=== PATIENT | male | born 1945 | race Caucasian/White ===

== ENCOUNTER 2016-09-22 07:47 | Inpatient (IN) | payer OTHER ==
[~2016-09-22] VITALS: Ht 177.8 cm; Wt 113.7 kg
[~2016-09-22 07:47] MED LIST: CIPR-255 PO; DABI150C PO; DOCU100C PO; FRS/40 PO; LATA0.009; METF-384 PO; TIMO0.2528 OP
--- NOTE | 2016-09-22 08:16 | EMERGENCY ROOM VISIT NOTE ---
History Report prepared by Griselda: Jessi Linares Under the Supervision of: Dr. Todd Marley M.D. First contact with patient: 08:02 Chief Complaint: TESTICULAR PAIN Stated Complaint: SWOLLEN SCROTUM Nursing Triage Summary: Triage note: pt reports he has had right testicle swelling x 5 days. pt reports he is able to urinate without any complication. pt son reports that pt has had confusion and some hallucinations x 5 days. History of Present Illness The patient is a 71 year old male who presents to the Emergency Room with complaints of worsening right testicular swelling and pain over the past few days. He notes that he has some testicular pain with walking and movement. He denies any recent injuries to the area. He also complains of nausea and occasional shortness of breath. He has a chronic cough but denies any new cough. Per patient's son, the patient has had increased generalized weakness and a decreased energy level. 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 The patient has bruises and scrapes to his legs, which he attributes to running into things while in his electric wheelchair. The patient has a chronic Coon catheter which has been emptying well. Denies fever, headache, chest pain, abdominal pain, vomiting, back pain, numbness, or other complaints. Source of History: patient, family (son) Onset: a few days ago Position: other (right testicle) Timing: worsening Modifying Factors (Worsening): movement, other (walking) Associated Symptoms: + SOB (occasional ), + cough (chronic), + nausea, + weakness, No abdominal pain, No back pain, No chest pain, No fevers, No headache , No numbness, No vomiting Note: Other symptoms: low energy, confusion Review of Systems See HPI for pertinent positives & negatives. A total of 10 systems reviewed and were otherwise negative. Past Medical & Surgical Medical Problems: (1) Atrial fibrillation (2) Chronic Kidney Disease, Stage Iii (Moderate) (3) Diab Maliha Wo Compl, Type Ii Or Unspec Type, Not Uncntrld Surgical Problems: (1) History of throat surgery Old medical records were reviewed. Nurse's notes were reviewed and I agree with. Family History No pertinent family history Social History Smoking Status: Never Smoker Alcohol Use: none Drug Use: none Marital Status: single Housing Status: lives alone Occupation Status: employed Current/Historical Medications Scheduled Apixaban (Eliquis), 5 MG PO BID Aspirin (Aspirin Chewable), 81 MG PO DAILY Baclofen (Lioresal), 10 MG PO QID Brimonidine Tartrate (Brimonidine Tartrate), 1 DROP OPB BID Diltiazem Hcl Ext Rel (Tiazac), 240 MG PO DAILY Docusate Sodium (Stool Softener), 100 MG PO DAILY Glipizide (Glipizide), 10 MG PO BID Latanoprost (Xalatan 0.005% Oph Freida), 1 DROP OPB DAILY Lisinopril (Zestril), 40 MG PO DAILY Metformin Hcl (Glucophage), 1 TAB PO BID Metoprolol Tartrate (Lopressor) (Lopressor), 50 MG PO BID Multiple Vitamins W/ Minerals (Preservision Areds), 1 CAP PO BID Multivitamin (Multivitamin), 1 TAB PO DAILY Timolol Maleate (Ophth) (Timoptic 0.25% Oph), 1 DROP OP BID Allergies Coded Allergies: No Known Allergies (Unverified , 12/29/14) Physical Exam Vital Signs Date Time Temp Pulse Resp B/P Pulse Ox O2 Delivery O2 Flow Rate FiO2 09/22/16 11:15 83 20 151/88 09/22/16 10:02 78 22 159/84 93 Room Air 09/22/16 09:15 85 22 150/88 92 Room Air 09/22/16 08:29 92 09/22/16 07:56 36.6 76 18 153/101 95 Room Air Physical Exam General: Chronically ill appearing but non acutely ill appearing older male. Well developed well nourished in no acute distress, breathing comfortably on room air. Normal speech HEENT: Normal cephalic atraumatic. Pupils are equal round and reactive to light. Extraocular movements are intact. Oropharynx is pink with moist mucous membranes. No swelling of the mouth lips or tongue. Neck: Supple with a midline trachea. No meningeal signs or stiffness, no JVD or bruits. No Stridor. Chest: Clear to auscultation bilaterally. No wheezes or rhonchi. No increased work of breathing. Heart: regular rate and rhythm. Abdomen: Soft nontender, nondistended without rebound guarding or rigidity. Large umbilical hernia which is chronic and unchanged, no redness or tenderness. : Large tender right scrotal/testicular mass. Yeast in the groin. Mild redness to the scrotum. No necrotic lesions. Extremities: No cyanosis or clubbing. No calf tenderness or assymetry. Trace to 1+ bilateral lower extremity edema. There are a few areas of skin breakdown on the toes and shins bilaterally. There are 2 black necrotic appearing spots on his toes on the right. Spine/Back. Non tender to palpation. No CVA tenderness Skin: Good turgor without rashes. Neurologic exam: Cranial nerves two through 12 are intact. Motor and sensation are intact and symmetrical throughout. Medical Decision & Procedures ER Provider Diagnostic Interpretation: Radiology results as stated below per my review and radiologist interpretation: CHEST ONE VIEW PORTABLE CLINICAL HISTORY: CHEST PAIN dyspnea COMPARISON STUDY: 01/10/2015 FINDINGS: Mild stable cardiomegaly. Lungs are grossly clear. Mild Baseline interstitial prominence. Potential early parenchymal infiltrate left lower lobe. IMPRESSION: Potential early parenchymal infiltrate left lower lobe. Mild chronic baseline interstitial change. Electronically signed by: Jose Smith M.D. 09/22/2016 8:45 AM Dictated Date/Time: 09/22/2016 8:44 AM ADDENDUM Additional images are submitted inferior to the symphysis pubis. There is generalized wall thickening and edematous change of the scrotal wall. Hyperemia of the vast deferens as well as potential loculated hydroceles are present. Scrotal ultrasound is considered mandatory in this patient. A diffuse inflammatory process is considered. Electronically signed by: Jose Smith M.D. 09/22/2016 9:50 AM Dictated Date/Time: 09/22/2016 9:47 AM ORIGINAL REPORT ABDOMEN AND PELVIS CT WITH IV CONTRAST CT DOSE: 1481.43 mGycm HISTORY: Pain eval for right scrotales mass/pain TECHNIQUE: Multiaxial CT images of the abdomen and pelvis were performed following the use of intravenous contrast. COMPARISON STUDY: 12/31/2014 FINDINGS: Small right pleural effusion. Left base is now considered clear. Moderate fatty infiltration of liver. Gallstone the region of the gallbladder neck. The kidneys enhance uniformly. No evidence for hydronephrosis. The adrenal glands are unremarkable. Fat-containing periumbilical hernia. Nonobstructive bowel pattern. Fat-containing periumbilical hernia. Moderate bladder wall thickening. Several small reactive pelvic nodes. No significant abdominal pelvic or inguinal roque pathology. IMPRESSION: 1. Small right pleural effusion. 2. Fatty infiltration of liver. 3. Gallstone the region of the gallbladder neck. 4. Nonobstructive bowel pattern. 5. Moderate bladder wall thickening. Electronically signed by: Jose Smith M.D. 09/22/2016 9:29 AM Dictated Date/Time: 09/22/2016 9:20 AM TESTICULAR ULTRASOUND HISTORY: Pain. Edema. eval for test/scotal mass on right COMPARISON: CT same date FINDINGS: Right testis: Maximum dimension 4.5 cm. Normal vascular flow. Rather marked scrotal edematous change. Enlarged hyperemic epididymis. Large complex collection surrounding the epididymis and right testis measuring 5 x 4 x 3 cm. This may represent hematoma versus abscess. Left testis: Maximum dimension 4.3 cm. Normal vascular flow. Small hydrocele. 1.7 cm left epididymal cyst. IMPRESSION: 1. Generalized scrotal edema. 2. Complex collection versus hematoma within the scrotum on the right measuring 5 x 4 x 3 cm. This may represent abscess versus hematoma. 3. Testis appear unremarkable bilaterally with normal vascular flow 4. Enlarged right epididymis with generalized hyperemia and inflammatory change. Electronically signed by: Jose Smith M.D. 09/22/2016 11:18 AM Dictated Date/Time: 09/22/2016 11:15 AM Laboratory Results 09/22/16 08:15 Red Blood Count 5.14, Mean Corpuscular Volume 80.7, Mean Corpuscular Hemoglobin 26.7, Mean Corpuscular Hemoglobin Concent 33.0, Mean Platelet Volume 10.3, Neutrophils (%) (Auto) 73.7, Lymphocytes (%) (Auto) 12.9, Monocytes (%) (Auto) 9.1, Eosinophils (%) (Auto) 3.8, Basophils (%) (Auto) 0.3, Neutrophils # (Auto) 8.62, Lymphocytes # (Auto) 1.51, Monocytes # (Auto) 1.07, Eosinophils # (Auto) 0.45, Basophils # (Auto) 0.04 09/22/16 08:15 Test 09/22/16 08:15 09/22/16 08:22 09/22/16 08:26 09/22/16 09:20 White Blood Count 11.71 K/uL (4.8-10.8) Red Blood Count 5.14 M/uL (4.7-6.1) Hemoglobin 13.7 g/dL (14.0-18.0) Hematocrit 41.5 % (42-52) Mean Corpuscular Volume 80.7 fL (80-100) Mean Corpuscular Hemoglobin 26.7 pg (25-34) Mean Corpuscular Hemoglobin Concent 33.0 g/dl (32-36) Platelet Count 317 K/uL (130-400) Mean Platelet Volume 10.3 fL (7.4-10.4) Neutrophils (%) (Auto) 73.7 % Lymphocytes (%) (Auto) 12.9 % Monocytes (%) (Auto) 9.1 % Eosinophils (%) (Auto) 3.8 % Basophils (%) (Auto) 0.3 % Neutrophils # (Auto) 8.62 K/uL (1.4-6.5) Lymphocytes # (Auto) 1.51 K/uL (1.2-3.4) Monocytes # (Auto) 1.07 K/uL (0.11-0.59) Eosinophils # (Auto) 0.45 K/uL (0-0.5) Basophils # (Auto) 0.04 K/uL (0-0.2) RDW Standard Deviation 47.1 fL (36.4-46.3) RDW Coefficient of Variation 16.0 % (11.5-14.5) Immature Granulocyte % (Auto) 0.2 % Immature Granulocyte # (Auto) 0.02 K/uL (0.00-0.02) Prothrombin Time 12.4 SECONDS (9.0-12.0) Prothromb Time International Ratio 1.2 (0.9-1.1) Activated Partial Thromboplast Time 35.0 SECONDS (21.0-31.0) Partial Thromboplastin Ratio 1.3 Est Creatinine Clear Calc Drug Dose 89.5 ml/min Estimated GFR () 94.2 Estimated GFR (Non- 81.2 BUN/Creatinine Ratio 17.9 (10-20) Calcium Level 8.8 mg/dl (8.5-10.1) Total Bilirubin 1.2 mg/dl (0.2-1) Direct Bilirubin 0.3 mg/dl (0-0.2) Aspartate Amino Transf (AST/SGOT) 18 U/L (15-37) Alanine Aminotransferase (ALT/SGPT) 29 U/L (12-78) Alkaline Phosphatase 93 U/L (45-117) Total Creatine Kinase 160 U/L (39-308) Creatine Kinase MB 3.6 ng/ml (0.5-3.6) Creatine Kinase MB Ratio 2.3 (0-3.0) Total Protein 7.4 gm/dl (6.4-8.2) Albumin 2.9 gm/dl (3.4-5.0) Lipase 225 U/L (73-393) Bedside Hemoglobin 15.3 g/dl (14.0-18.0) Bedside Hematocrit 45 % (42-52) Bedside Sodium 140 mEq/L (135-144) Bedside Potassium 4.0 mEq/L (3.3-5.0) Bedside Chloride 98 mEq/L (101-112) Bedside Total CO2 28 mEq/l (24-31) Anion Gap 19.0 mmol/L (16-25) Bedside Blood Urea Nitrogen 17 mg/dl (7-18) Bedside Creatinine 0.8 mg/dl (0.6-1.3) Bedside Glucose (other) 222 mg/dl (70-99) Bedside Lactic Acid Venous 1.34 mmol/L (0.90-1.70) Bedside Ionized Calcium (Sabrina) 1.10 mmol/l (1.12-1.32) Bedside Troponin I 0.030 ng/ml (0-0.045) EP-Uad-X-Type Natriuretic Peptide 1240 pg/ml (0-900) Bedside Glucose 227 mg/dl (70-99) Urine Color YELLOW Urine Appearance CLEAR (CLEAR) Urine pH 6.5 (4.5-7.5) Urine Specific [place] > 1.045 (1.000-1.030) Urine Protein 3+ (NEG) Urine Glucose (UA) NEG (NEG) Urine Ketones TRACE (NEG) Urine Occult Blood 2+ (NEG) Urine Nitrite POS (NEG) Urine Bilirubin NEG (NEG) Urine Urobilinogen NEG (NEG) Urine Leukocyte Esterase MODERATE (NEG) Urine WBC (Auto) >30 /hpf (0-5) Urine RBC (Auto) >30 /hpf (0-4) Urine Hyaline Casts (Auto) 1-5 /lpf (0-5) Urine Epithelial Cells (Auto) 0-5 /lpf (0-5) Urine Bacteria (Auto) NEG (NEG) Laboratory studies as stated above per my review. Medications Administered Medications (Trade) Dose Ordered Sig/Gee Route Start Time Stop Time Status Last Admin Dose Admin Levofloxacin (Levaquin / D5W) 750 mg NOW STAT IV 09/22/16 09:47 09/22/16 09:49 DC 09/22/16 10:00 750 MG ECG Indication: weakness Rate (beats per minute): 88 Rhythm: atrial fibrillation Findings: no acute ischemic change, other (nonspecific T wave abnormality) Comparison ECG Date: 01/13/15 Change: A-fib has replaced a-flutter. ED Course 08: Past medical records reviewed. The patient was evaluated in room B2, and a complete history and physical examination were performed. 926: I reassessed the patient. He was resting comfortably. I discussed the results and treatment plan with the patient and his son. They verbalized agreement of the treatment plan. The patient will be evaluated for further management. 0947: Ordered Levofloxacin 750 mg IV. 1004: I discussed the case with Dr. Todd CRAIG Hospitalist. The patient will be evaluated for further management. Medical Decision Differentials include testicular mass, hernia, testicular torsion, infection, vascular disease, electrolyte or metabolic abnormality, arrhythmia. This patient comes in as described above. He's had swollen right testicle/ scrotum for several days now. In addition to these symptoms, he has also been acting a little more confused. He is afebrile here. He is normotensive. also of concern however he also has some black spots on his toes concerning for vascular pathology as well. IV access established ,blood cultures were obtained , lactic acid was obtained, multiple blood testing was obtained. I also did a CAT scan of his abdomen and pelvis to further evaluate the scrotal abnormality. He was reassessed frequently. He has remained stable. CAT scan does not show any acute findings to explain his symptoms. His ultrasound does show complex scrotal mass. I do think he has a scrotal cellulitis and scrotal mass he was given IV antibiotics with IV Levaquin he also cellulitis of the leg as well. He will be admitted to the hospitalist and will need further inpatient treatment antibiotics and evaluation. Consults Time Called: [phone] Consulting Physician: Dr. Todd PASTOR Hospitalist Returned Call: [phone] I discussed the case with him. The patient will be evaluated for further management. Impression Primary Impression: Scrotal mass Additional Impressions: Cellulitis Lower extremity ulceration Sepsis Scribe Attestation The scribe's documentation has been prepared under my direction and personally reviewed by me in its entirety. I confirm that the note above accurately reflects all work, treatment, procedures, and medical decision making performed by me. Departure Information Dispostion Being Evaluated By Hospitalist Referrals Stella Leung M.D. (PCP) Patient Instructions My [facility] Problem Qualifiers
[2016-09-22] MEDS ORDERED: OPTIRAY 320 IV PRN (08:30)
[2016-09-22 08:33] LABS: BASO % 0.3 %; BASO ABS # 0.04 K/uL (0-0.2); COMPLETE YES; EOS % 3.8 %; HEMATOCRIT 41.5 % (42-52); IG% 0.2 %; LYMPH % 12.9 %; LYMPH ABS # 1.51 K/uL (1.2-3.4); MEAN CELL VOLUME 80.7 fL (80-100); MEAN CORPUSCULAR HEMOGLOBIN 26.7 pg (25-34); MEAN PLATELET VOLUME 10.3 fL (7.4-10.4); MONO % 9.1 %; NEUT % 73.7 %; PLATELET COUNT 317 K/uL (130-400); RED BLOOD COUNT 5.14 M/uL (4.7-6.1); WHITE BLOOD COUNT 11.71 K/uL (4.8-10.8)
[2016-09-22 08:36] LABS: ISTAT CREATININE 0.8 mg/dl (0.6-1.3); ISTAT HEMOGLOBIN 15.3 g/dl (14.0-18.0); ISTAT IONIZED CALCIUM 1.1 mmol/l (1.12-1.32)
[2016-09-22 08:41] LABS: INR 1.2 (0.9-1.1); PARTIAL THROMBOPLASTIN RATIO 1.3; PROTHROMBIN TIME (PATIENT) 12.4 SECONDS (9.0-12.0)
[2016-09-22 08:42] LABS: POINT OF CARE TROPONIN I 0.03 ng/ml (0-0.045)
[2016-09-22 08:46] LABS: BUN/CREATININE RATIO 17.9 (10-20); CALCIUM 8.8 mg/dl (8.5-10.1); CREATININE 0.94 mg/dl (0.60-1.40)
--- NOTE | 2016-09-22 08:46 | DIAGNOSTIC IMAGING REPORT ---
CHEST ONE VIEW PORTABLE CLINICAL HISTORY: CHEST PAIN dyspnea COMPARISON STUDY: 01/10/2015 FINDINGS: Mild stable cardiomegaly. Lungs are grossly clear. Mild Baseline interstitial prominence. Potential early parenchymal infiltrate left lower lobe. IMPRESSION: Potential early parenchymal infiltrate left lower lobe. Mild chronic baseline interstitial change. Electronically signed by: Jose Smith M.D. 09/22/2016 8:45 AM Dictated Date/Time: 09/22/2016 8:44 AM
[2016-09-22 08:51] LABS: CKMB/CK RATIO 2.3 (0-3.0)
[2016-09-22] MEDS ORDERED: METO50TA16 PO (08:51)
[2016-09-22 09:30] LABS: URINE APPEARANCE CLEAR (CLEAR); URINE BILIRUBIN NEG (NEG); URINE COLOR YELLOW; URINE EPITHELIAL CELL AUTO 0-5 /lpf (0-5); URINE NITRITE POS (NEG); URINE PH 6.5 (4.5-7.5); URINE SPECIFIC GRAVITY > 1.045 (1.000-1.030); UROBILINOGEN NEG (NEG)
--- NOTE | 2016-09-22 09:30 | DIAGNOSTIC IMAGING REPORT ---
ADDENDUM Additional images are submitted inferior to the symphysis pubis. There is generalized wall thickening and edematous change of the scrotal wall. Hyperemia of the vast deferens as well as potential loculated hydroceles are present. Scrotal ultrasound is considered mandatory in this patient. A diffuse inflammatory process is considered. Electronically signed by: Jose Smith M.D. 09/22/2016 9:50 AM Dictated Date/Time: 09/22/2016 9:47 AM ORIGINAL REPORT ABDOMEN AND PELVIS CT WITH IV CONTRAST CT DOSE: 1481.43 mGycm HISTORY: Pain eval for right scrotales mass/pain TECHNIQUE: Multiaxial CT images of the abdomen and pelvis were performed following the use of intravenous contrast. COMPARISON STUDY: 12/31/2014 FINDINGS: Small right pleural effusion. Left base is now considered clear. Moderate fatty infiltration of liver. Gallstone the region of the gallbladder neck. The kidneys enhance uniformly. No evidence for hydronephrosis. The adrenal glands are unremarkable. Fat-containing periumbilical hernia. Nonobstructive bowel pattern. Fat-containing periumbilical hernia. Moderate bladder wall thickening. Several small reactive pelvic nodes. No significant abdominal pelvic or inguinal roque pathology. IMPRESSION: 1. Small right pleural effusion. 2. Fatty infiltration of liver. 3. Gallstone the region of the gallbladder neck. 4. Nonobstructive bowel pattern. 5. Moderate bladder wall thickening. Electronically signed by: Jose Smith M.D. 09/22/2016 9:29 AM Dictated Date/Time: 09/22/2016 9:20 AM
[2016-09-22 09:31] LABS: MANUAL MICROSCOPIC REQUIRED? NO; REVIEW REQ? NO
[2016-09-22] MEDS ORDERED: LEVAQUIN 750MG / 150ML D5W IV STA (09:47)
--- NOTE | 2016-09-22 11:19 | DIAGNOSTIC IMAGING REPORT ---
TESTICULAR ULTRASOUND HISTORY: Pain. Edema. eval for test/scotal mass on right COMPARISON: CT same date FINDINGS: Right testis: Maximum dimension 4.5 cm. Normal vascular flow. Rather marked scrotal edematous change. Enlarged hyperemic epididymis. Large complex collection surrounding the epididymis and right testis measuring 5 x 4 x 3 cm. This may represent hematoma versus abscess. Left testis: Maximum dimension 4.3 cm. Normal vascular flow. Small hydrocele. 1.7 cm left epididymal cyst. IMPRESSION: 1. Generalized scrotal edema. 2. Complex collection versus hematoma within the scrotum on the right measuring 5 x 4 x 3 cm. This may represent abscess versus hematoma. 3. Testis appear unremarkable bilaterally with normal vascular flow 4. Enlarged right epididymis with generalized hyperemia and inflammatory change. Electronically signed by: Jose Smith M.D. 09/22/2016 11:18 AM Dictated Date/Time: 09/22/2016 11:15 AM
[2016-09-22] MEDS ORDERED: ALUMINUM/MAGNESIUM/SIMETH (MAALOX MAX) 30 ML UDC PO PRN (11:45)
[2016-09-22] MEDS ORDERED: MAGNESIUM HYDROXIDE SUSP 30 ML UDC PO PRN (11:45)
[2016-09-22] MEDS ORDERED: ACETAMINOPHEN 325 MG TAB PO PRN (11:45)
[2016-09-22] MEDS ORDERED: POLYETHYLENE (MIRALAX) 17 GM PACK PO PRN (11:45)
[2016-09-22] MEDS ORDERED: ONDANSETRON INJ 2 MG/ML 2 ML VIAL IV PRN (11:45)
[2016-09-22 13:45] VITALS: BP 162/92; PULSE 89; TEMP 36.9; O2SAT 92; BMI 34.8
[2016-09-22] MEDS ORDERED: VANCOMYCIN INJ 2,750 MG in SODIUM CHLORIDE 0.9% 500ML 500 ML IV ONE (14:15)
[2016-09-22] MEDS ORDERED: GLUCAGON FOR INJ 1 MG VIAL SQ PRN (14:15)
[2016-09-22] MEDS ORDERED: VANCOMYCIN CONSULT ACTIVE PRN (14:15)
[2016-09-22] MEDS ORDERED: GLUCOSE 40% GEL 15 GM TUBE PO PRN (14:15)
[2016-09-22] MEDS ORDERED: GLUCOSE 10 TABS/TUBE PO PRN (14:15)
[2016-09-22] MEDS ORDERED: DEXTROSE 50% 50 ML SYR IV PRN (14:15)
[2016-09-22] MEDS ORDERED: FLUCONAZOLE / NSS 200 MG in PREMIXED NSS 100 ML IV SCH (14:15)
--- NOTE | 2016-09-22 14:39 | History and Physical ---
History & Physical Date & Time of Service: Sep 22, 2016 at 14:33 Chief Complaint: Cellulitis, Scrotal Mass Primary Care Physician: Stella Leung M.D. History of Present Illness Source: patient, family Mr. Tran is a 71 y/o male with PMHx of Persistent Atrial Fibrillation, CKD Stage III, T2DM with Peripheral Neuropathy, HTN, Neurogenic Bladder, and Spinal Paraparesis who presents to the ED for painful and edematous right testicle 5 days. Patient reports similar issues approximately 2 years ago that resolved on its own. He reports pain is limited to scrotal. Pain is worsened with walking and movement. He denies direct injury to the scrotum. However, does report a fall 2 days ago. Fall was from the height of a chair and he fell on his bottom. Associated generalized weakness and intermittent nausea. Son at bedside reports that patient has been more confused from baseline but is improving. Also reporting intermittent shortness of breath is resolved. He states that he has an ongoing cough that is nonproductive for years. In addition, his lower extremity weakness is baseline with multiple abrasions and open wounds. Also noted plaquing lesions around the toes. States that he hits his legs frequently from running into things with his electric wheelchair. Currently has an indwelling Coon catheter secondary to neurogenic bladder. States that he gets this catheter changed monthly. He denies fever/chills, chest pain, SOB, vomiting, abdominal pain, melena/hematochezia. In the ED, patient is afebrile and normotensive. Mildly elevated WBC of 11.71. Scrotal ultrasound with complex collection of abscess versus hematoma with enlarged right epididymis with hyperemia. Urinalysis significant for trace ketones, 2+ blood, positive nitrates, moderate leuks, negative for bacteria. Urine culture and blood cultures pending. Patient was initiated on levofloxacin 750 mg IV 1 dose. Past Medical/Surgical History Medical Problems: (1) Atrial fibrillation Status: Chronic (2) Chronic Kidney Disease, Stage Iii (Moderate) Status: Chronic (3) Diab Maliha Wo Compl, Type Ii Or Unspec Type, Not Uncntrld Status: Chronic Surgical Problems: (1) History of throat surgery Status: Resolved Family History No pertinent family history Social History Smoking Status: Never Smoker Alcohol Use: none Drug Use: none Marital Status: single Housing status: lives alone Occupational Status: employed Allergies Coded Allergies: No Known Allergies (Unverified , 12/29/14) Home Medications Scheduled Apixaban (Eliquis), 5 MG PO BID Aspirin (Aspirin Chewable), 81 MG PO DAILY Baclofen (Lioresal), 10 MG PO QID Brimonidine Tartrate (Brimonidine Tartrate), 1 DROP OPB BID Diltiazem Hcl Ext Rel (Tiazac), 240 MG PO DAILY Docusate Sodium (Stool Softener), 100 MG PO DAILY Glipizide (Glipizide), 10 MG PO BID Latanoprost (Xalatan 0.005% Oph Freida), 1 DROP OPB DAILY Lisinopril (Zestril), 40 MG PO DAILY Metformin Hcl (Glucophage), 1 TAB PO BID Metoprolol Tartrate (Lopressor) (Lopressor), 50 MG PO BID Multiple Vitamins W/ Minerals (Preservision Areds), 1 CAP PO BID Multivitamin (Multivitamin), 1 TAB PO DAILY Timolol Maleate (Ophth) (Timoptic 0.25% Oph), 1 DROP OP BID Review of Systems Constitutional: No chills, No fever Respiratory: + cough (chronic), No shortness of breath Cardiovascular: No chest pain Abdomen: + nausea, No constipation, No diarrhea, No pain, No vomiting Musculoskeletal: No calf pain Genitourinary - Male: + problem reported (painful and edematous scrotum), No hematuria Neurologic: + numbness/tingling (chronic b/l lower extremities) Integumentary: + problem reported (chronic multiple open wounds on lower extremities 2/2 trauma; intermittent blackened spots on feet bilat) Physical Exam Vital Signs Date Time Temp Pulse Resp B/P Pulse Ox O2 Delivery O2 Flow Rate FiO2 09/22/16 13:45 36.9 89 20 162/92 92 Room Air 09/22/16 13:06 97 22 149/78 94 09/22/16 12:12 106 09/22/16 11:15 83 20 151/88 09/22/16 10:02 78 22 159/84 93 Room Air 09/22/16 09:15 85 22 150/88 92 Room Air 09/22/16 08:29 92 09/22/16 07:56 36.6 76 18 153/101 95 Room Air General Appearance: WD/WN, no apparent distress Head: normocephalic, atraumatic Eyes: sclerae normal ENT: hearing grossly normal Neck: supple, no JVD, trachea midline Respiratory/Chest: lungs clear, normal breath sounds, no respiratory distress, no accessory muscle use Cardiovascular: no gallop, no murmur, + irregularly irregular Abdomen/GI: normal bowel sounds, non tender, soft Extremities/Musculoskelatal: no calf tenderness, + swelling, + pertinent finding (multiple chronic lesions bilateral lower extremities with blackened areas of toes - due to trauma) Neurologic/Psych: alert, oriented x 3 Skin: normal color, warm/dry Diagnostics Laboratory Results Results Past 24 Hours Test 09/22/16 08:15 09/22/16 08:22 09/22/16 08:26 09/22/16 09:20 Range/Units White Blood Count 11.71 4.8-10.8 K/uL Red Blood Count 5.14 4.7-6.1 M/uL Hemoglobin 13.7 14.0-18.0 g/dL Hematocrit 41.5 42-52 % Mean Corpuscular Volume 80.7 80-100 fL Mean Corpuscular Hemoglobin 26.7 25-34 pg Mean Corpuscular Hemoglobin Concent 33.0 32-36 g/dl Platelet Count 317 130-400 K/uL Mean Platelet Volume 10.3 7.4-10.4 fL Neutrophils (%) (Auto) 73.7 % Lymphocytes (%) (Auto) 12.9 % Monocytes (%) (Auto) 9.1 % Eosinophils (%) (Auto) 3.8 % Basophils (%) (Auto) 0.3 % Neutrophils # (Auto) 8.62 1.4-6.5 K/uL Lymphocytes # (Auto) 1.51 1.2-3.4 K/uL Monocytes # (Auto) 1.07 0.11-0.59 K/uL Eosinophils # (Auto) 0.45 0-0.5 K/uL Basophils # (Auto) 0.04 0-0.2 K/uL RDW Standard Deviation 47.1 36.4-46.3 fL RDW Coefficient of Variation 16.0 11.5-14.5 % Immature Granulocyte % (Auto) 0.2 % Immature Granulocyte # (Auto) 0.02 0.00-0.02 K/uL Prothrombin Time 12.4 9.0-12.0 SECONDS Prothromb Time International Ratio 1.2 0.9-1.1 Activated Partial Thromboplast Time 35.0 21.0-31.0 SECONDS Partial Thromboplastin Ratio 1.3 Sodium Level 140 136-145 mmol/L Potassium Level 4.0 3.5-5.1 mmol/L Chloride Level 101 98-107 mmol/L Carbon Dioxide Level 29 21-32 mmol/L Anion Gap 10.0 19.0 16-25 mmol/L Blood Urea Nitrogen 17 7-18 mg/dl Creatinine 0.94 0.60-1.40 mg/dl Est Creatinine Clear Calc Drug Dose 89.5 ml/min Estimated GFR () 94.2 Estimated GFR (Non- 81.2 BUN/Creatinine Ratio 17.9 10-20 Random Glucose 220 70-99 mg/dl Calcium Level 8.8 8.5-10.1 mg/dl Total Bilirubin 1.2 0.2-1 mg/dl Direct Bilirubin 0.3 0-0.2 mg/dl Aspartate Amino Transf (AST/SGOT) 18 15-37 U/L Alanine Aminotransferase (ALT/SGPT) 29 12-78 U/L Alkaline Phosphatase 93 45-117 U/L Total Creatine Kinase 160 39-308 U/L Creatine Kinase MB 3.6 0.5-3.6 ng/ml Creatine Kinase MB Ratio 2.3 0-3.0 Total Protein 7.4 6.4-8.2 gm/dl Albumin 2.9 3.4-5.0 gm/dl Lipase 225 73-393 U/L Bedside Hemoglobin 15.3 14.0-18.0 g/dl Bedside Hematocrit 45 42-52 % Bedside Sodium 140 135-144 mEq/L Bedside Potassium 4.0 3.3-5.0 mEq/L Bedside Chloride 98 101-112 mEq/L Bedside Total CO2 28 24-31 mEq/l Bedside Blood Urea Nitrogen 17 7-18 mg/dl Bedside Creatinine 0.8 0.6-1.3 mg/dl Bedside Glucose (other) 222 70-99 mg/dl Bedside Lactic Acid Venous 1.34 0.90-1.70 mmol/L Bedside Ionized Calcium (Sabrina) 1.10 1.12-1.32 mmol/l Bedside Troponin I 0.030 0-0.045 ng/ml [id number]-Type Natriuretic Peptide 1240 0-900 pg/ml Bedside Glucose 227 70-99 mg/dl Urine Color YELLOW Urine Appearance CLEAR CLEAR Urine pH 6.5 4.5-7.5 Urine Specific [place] > 1.045 1.000-1.030 Urine Protein 3+ NEG Urine Glucose (UA) NEG NEG Urine Ketones TRACE NEG Urine Occult Blood 2+ NEG Urine Nitrite POS NEG Urine Bilirubin NEG NEG Urine Urobilinogen NEG NEG Urine Leukocyte Esterase MODERATE NEG Urine WBC (Auto) >30 0-5 /hpf Urine RBC (Auto) >30 0-4 /hpf Urine Hyaline Casts (Auto) 1-5 0-5 /lpf Urine Epithelial Cells (Auto) 0-5 0-5 /lpf Urine Bacteria (Auto) NEG NEG Microbiology Results 09/22/16 Blood Culture, Received Pending 09/22/16 Blood Culture, Received Pending 09/22/16 Urine Culture, Received Pending Diagnostic Radiology 1. TESTICULAR ULTRASOUND HISTORY: Pain. Edema. eval for test/scotal mass on right COMPARISON: CT same date FINDINGS: Right testis: Maximum dimension 4.5 cm. Normal vascular flow. Rather marked scrotal edematous change. Enlarged hyperemic epididymis. Large complex collection surrounding the epididymis and right testis measuring 5 x 4 x 3 cm. This may represent hematoma versus abscess. Left testis: Maximum dimension 4.3 cm. Normal vascular flow. Small hydrocele. 1.7 cm left epididymal cyst. IMPRESSION: 1. Generalized scrotal edema. 2. Complex collection versus hematoma within the scrotum on the right measuring 5 x 4 x 3 cm. This may represent abscess versus hematoma. 3. Testis appear unremarkable bilaterally with normal vascular flow 4. Enlarged right epididymis with generalized hyperemia and inflammatory change. 2. ABDOMEN AND PELVIS CT WITH IV CONTRAST CT DOSE: 1481.43 mGycm HISTORY: Pain eval for right scrotales mass/pain TECHNIQUE: Multiaxial CT images of the abdomen and pelvis were performed following the use of intravenous contrast. COMPARISON STUDY: 12/31/2014 FINDINGS: Small right pleural effusion. Left base is now considered clear. Moderate fatty infiltration of liver. Gallstone the region of the gallbladder neck. The kidneys enhance uniformly. No evidence for hydronephrosis. The adrenal glands are unremarkable. Fat-containing periumbilical hernia. Nonobstructive bowel pattern. Fat-containing periumbilical hernia. Moderate bladder wall thickening. Several small reactive pelvic nodes. No significant abdominal pelvic or inguinal roque pathology. IMPRESSION: 1. Small right pleural effusion. 2. Fatty infiltration of liver. 3. Gallstone the region of the gallbladder neck. 4. Nonobstructive bowel pattern. 5. Moderate bladder wall thickening. ADDENDUM Additional images are submitted inferior to the symphysis pubis. There is generalized wall thickening and edematous change of the scrotal wall. Hyperemia of the vast deferens as well as potential loculated hydroceles are present. Scrotal ultrasound is considered mandatory in this patient. A diffuse inflammatory process is considered. 3. CHEST ONE VIEW PORTABLE CLINICAL HISTORY: CHEST PAIN dyspnea COMPARISON STUDY: 01/10/2015 FINDINGS: Mild stable cardiomegaly. Lungs are grossly clear. Mild Baseline interstitial prominence. Potential early parenchymal infiltrate left lower lobe. IMPRESSION: Potential early parenchymal infiltrate left lower lobe. Mild chronic baseline interstitial change. EKG Atrial fibrillation with premature ventricular or aberrantly conducted complexes Rightward axis Prolonged QT Abnormal ECG When compared with ECG of 13-JAN-2015 12:51, Atrial fibrillation has replaced Atrial flutter Impression Assessment and Plan Mr. Tran is a 71 y/o male with PMHx of Persistent Atrial Fibrillation, CKD Stage III, T2DM with Peripheral Neuropathy, HTN, Neurogenic Bladder, and Spinal Paraparesis who presents to the ED for painful and edematous right testicle 5 days. Scrotal Hematoma vs Abscess with Superimposed Bacterial/Fungal Cellulitis: - Favor hematoma given recent fall and minimally elevated WBC - NSS 80 mL/hr - Ceftriaxone 2 g IV daily and vancomycin per pharmacy dosing - Fluconazole 200 mg IV 1 dose then fluconazole 100 mg IV daily - Nystatin powder - Hold Eliquis and ASA - Consult urology - appreciate recommendations - conservative treatment vs intervention - Consult wound care - multiple wounds of lower extremity (Peripheral Neuropathy /T2DM); Fungal/Bacterial Groin Cellulitis Potential Early Parenchymal LLL Infiltrate - repeat CXR in AM Persistent Atrial Fibrillation and HTN: - Diltiazem 40 mg daily and metoprolol 50 mg BID - Lisinopril 40 mg daily T2DM: 7.4 (December) - Hold glipizide and metformin - SSI - goal 120-160, correction factor 35 - Repeat HbA1c DVT Prophylaxis: - Heparin gtt - order not placed at this time pending possible urology intervention -- Will need appropriate anticoagulation given A Fib but may be able to return on Eliquis pending - will reassess in AM Code Status: FULL RESUSCITATION Disposition: Utilizes electric wheelchair Co signature: I personally interviewed and examined the patient. I discussed and formulated the assessment and plan with Miss Hernadez. Mr. Tran is a 71 y/o male with PMHx of Persistent Atrial Fibrillation on Eliquis, T2DM with Peripheral Neuropathy and HTN, Few years ago he develoepd lower Ext weakness and his work up was negative, so he was diagnosed with Spinal Paraparesis. which progressed to severe lower Ext weakness and Neurogenic Bladder. presented to ED w painful and edematous right testicle 5 days. He had a fall 2 days ago. He denies fever/chills, chest pain, SOB, vomiting, abdominal pain, melena/ hematochezia. General Appearance: no acute distress Head: normocephalic, atraumatic Eyes: sclerae normal, clear conjunctiva ENT: hearing grossly normal Neck: supple, no JVD, trachea midline Respiratory/Chest: lungs clear, normal breath sounds, no respiratory distress, no accessory muscle use Cardiovascular: no gallop, no murmur, + irregularly irregular Abdomen/GI: normal bowel sounds, non tender, soft, right testicle is enlarged, erythematous scrotum, rash between thighs Extremities/Musculoskelatal: no calf tenderness Neurologic/Psych: alert, oriented x 3 Assessment: right testicular swelling, abscess, hydrocele versus hemorrhage hold Eliquis Consult urologist obtain blood and urine Cx start CTXN strept dose 2G daily plus vanco strict control of BS fluconazole and nystatin powder Level of Care Telemetry Advanced Directives Existing Living Will: No Existing Power of Registration Clerk: Yes Resuscitation Status FULL RESUSCITATION VTE Prophylaxis VTE Risk Assessment Done? Y/N: Yes Risk Level: Moderate Given or contraindicated: Enoxaparin (Lovenox)SQ
[2016-09-22] MEDS ORDERED: TRAMADOL HCL 50 MG TAB PO PRN (15:00)
[2016-09-22] MEDS ORDERED: MoRPHine SULFATE 2 MG/ML CARP IV PRN (15:00)
--- NOTE | 2016-09-22 15:08 | Pharmacy Progress Note ---
Pharmacy Antibiotic Consult Date of Service: Sep 22, 2016. Pharmacy Dosing Scope Pharmacy is consulted to initiate vancomycin IV dosing therapy, order appropriate labs and adjust drug dose/frequency. Subjective The patient is a 71 year old male admitted on Sep 22, 2016 at 12:06. Objective Height (Feet): 5 Height (Inches): 10.00 Weight (Kilograms): 110.000 Lab Results (24hrs): Laboratory Tests Test 09/22/16 08:15 BUN/Creatinine Ratio 17.9 Blood Urea Nitrogen 17 mg/dl Creatinine 0.94 mg/dl White Blood Count 11.71 K/uL Red Blood Count 5.14 M/uL Hemoglobin 13.7 g/dL Hematocrit 41.5 % Mean Corpuscular Volume 80.7 fL Mean Corpuscular Hemoglobin 26.7 pg Mean Corpuscular Hemoglobin Concent 33.0 g/dl Platelet Count 317 K/uL Mean Platelet Volume 10.3 fL Neutrophils (%) (Auto) 73.7 % Lymphocytes (%) (Auto) 12.9 % Monocytes (%) (Auto) 9.1 % Eosinophils (%) (Auto) 3.8 % Basophils (%) (Auto) 0.3 % Neutrophils # (Auto) 8.62 K/uL Lymphocytes # (Auto) 1.51 K/uL Monocytes # (Auto) 1.07 K/uL Eosinophils # (Auto) 0.45 K/uL Basophils # (Auto) 0.04 K/uL Micro Results: Item Value Date Time Urine Culture Received 09/22/16 0920 Urine,Catheterized Pending Blood Culture Received 09/22/16 0818 Blood Pending Blood Culture Received 09/22/16 0815 Blood Pending Assessment & Plan Patient started on vancomycin. Also receiving ceftriaxone and fluconazole (not consults). Per MD note, concern for possible cellulitis vs. hematoma infection Vancomycin: * [place] 2750 mg (~25 mg/kg) iv x 1 * Will dose with vancomycin 1200 mg (~11 mg/kg) iv q 12 hrs to achieve an estimated trough ~16 mcg/ml (goal 15-20 mcg/ml) * Was less aggressive with dose of vancomycin due to risk of drug accumulation since elevated BMI (BMI~35 kg/m2) * Estimated kinetics: t1/2~8 hrs, ke~0.07 hr-1, CrCl ~90 ml/min * Will plan to obtain a trough prior to the 1400 dose on 4/2 to ensure therapeutic Pharmacy will continue to follow and will adjust dose/frequency as necessary. Thank you
[2016-09-22 16:00] VITALS: O2SAT 92
[2016-09-22 16:10] VITALS: BP 175/89; PULSE 103; TEMP 36.8; O2SAT 91
[2016-09-22 16:23] LABS: HEMATOCRIT 41.8 % (42-52)
[2016-09-22] MEDS: CEFTRIAXONE SOD INJ 2,000 MG in DEXTROSE 5% 50ML 50 ML IV SCH (16:30)
[2016-09-22] MEDS: SODIUM CHLORIDE 0.9% 1000ML 1,000 ML IV SCH (16:30)
[2016-09-22] MEDS: BACLOFEN 10 MG TAB PO SCH ×2 (17:42→21:10)
[2016-09-22] MEDS: NYSTATIN POWDER 15GM BTL EXT SCH ×2 (17:42→21:10)
[2016-09-22] MEDS: INSULIN ASPART 100 UNITS/ML 3 ML PEN SC SCH ×2 (17:46→21:14)
--- NOTE | 2016-09-22 19:36 | GENITOURINARY CONSULTATION ---
DATE OF CONSULTATION: 09/22/2016 REASON FOR THE CONSULTATION: Right epididymal orchitis with fluid collection. HISTORY OF PRESENTATION: The patient is a 71-year-old male who has past medical history of persistent atrial fibrillation who has been on Eliquis up until including today who 5 days ago began to notice pain in his right testicle, apparently had a similar problem several years ago. He denies any significant fever. He has a history of having a peripheral neuropathy with a neurogenic bladder secondary to a spinal paraparesis and has had an indwelling Coon catheter for 3 years. He has not seen urology, recently had his catheter changed monthly. He also had a fall several days ago and according to the chart, his sons claim that he had been having increasingly confused over the past several days. He was admitted with what appeared to be an elevated white blood cell count of 11.71. A scrotal sonogram with a complex collection with abscess versus hematoma around the right testicle in the right scrotum and a urinary tract infection. PAST MEDICAL HISTORY: Include atrial fibrillation, chronic kidney disease, diabetes and thyroid surgery. ALLERGIES: The patient has no known drug allergies. MEDICATIONS: Include Eliquis, baclofen, brimonidine, Tiazac, stool softener, glipizide, Xalatan, Zestril, Glucophage, Lopressor, and atenolol. REVIEW OF SYSTEMS: Please refer to the review of systems from the Emergency Room history and physical. PHYSICAL EXAMINATION: GENERAL: The patient is an elderly male, who has apparently difficulty ambulating and is finding wheelchair with an indwelling Coon catheter. He is alert and oriented without obvious distress. No respiratory distress seen. HEENT: Unremarkable. LUNGS: Clear. ABDOMEN: He has got a significant protuberant umbilical hernia. Abdomen is otherwise benign. Apparently, he has had this hernia for some period of time. EXTREMITIES: Remarkable for erythematous lower extremities with some necrotic looking areas on his digits. GENITOURINARY: His phallus is normal with an indwelling Coon catheter. His scrotum is modestly erythematous with some induration of the scrotal wall on the right side, normal left-sided scrotum and testis. I do not feel a pointing of an abscess. LABORATORY AND IMAGING DATA: White blood cell count again as previously stated was 11,000. He does have an elevated glucose of over 200. His protime and PT, PTT are slightly elevated, but again he has been on Eliquis. He has pyuria and leukocyte esterase is moderately positive. CT scan was performed which essentially was noncontributory except for some moderate bladder wall thickening and some fatty infiltration of the liver. The patient had a potential early infiltrate in his left lower lobe on chest x-ray. The patient had aFib on EKG. IMPRESSION AND PLAN: The patient was started on ceftriaxone was given fluconazole, nystatin powder; his Eliquis has been held. When I saw the patient, I requested prior to seeing him that he be kept n.p.o. in case I needed to do an incision and drainage, but he had eaten and that with having had Eliquis that day and the fact that he is afebrile with a modest white blood cell count and minimal discomfort and is on antibiotics, may need decide not to intervene this evening. If the patient becomes worse, would consider, but he is eating and will be made n.p.o. after midnight. He still has the effects of Eliquis on board and will have to decide in the morning whether to continue one of the day of antibiotics, prior to the Eliquis wearing off or intervene on Eliquis. This will be decided after examination in the morning. I do think he will need to have this area drained and sooner the better. I do think that he will have to have this area intervene; however, he does not appear to be toxic at this time, and the infection does seem to be just confined to the right hemiscrotum without significant extension beyond this or erythema going outside of the right hemiscrotum.
[2016-09-22 20:28] VITALS: BP_SYST 192; BP_SYST 193; BP_DIAS 103; BP_DIAS 95; PULSE 97; TEMP 36.9; O2SAT 92
[2016-09-22] MEDS: METOPROLOL TARTRATE 50 MG TAB PO SCH (21:10)
[2016-09-22] MEDS: TIMOLOL MALEATE 0.25% OP SOLN 5 ML BTL OP SCH (21:10)
[2016-09-22 23:40] VITALS: BP 152/100; PULSE 80; TEMP 37.1; O2SAT 95
[2016-09-23] MEDS: VANCOMYCIN INJ 1,200 MG in SODIUM CHLORIDE 0.9% 250ML 250 ML IV SCH ×2 (02:09→13:42)
[2016-09-23 03:34] VITALS: BP 152/69; PULSE 87; TEMP 36.5; O2SAT 92
[2016-09-23 05:49] LABS: HEMATOCRIT 43.4 % (42-52); MEAN CORPUSCULAR HEMOGLOBIN 26.3 pg (25-34); MEAN PLATELET VOLUME 11.1 fL (7.4-10.4); PLATELET COUNT 287 K/uL (130-400); RED BLOOD COUNT 5.29 M/uL (4.7-6.1); WHITE BLOOD COUNT 11.22 K/uL (4.8-10.8)
[2016-09-23 06:02] LABS: INR 1.1 (0.9-1.1); PARTIAL THROMBOPLASTIN RATIO 1.3; PROTHROMBIN TIME (PATIENT) 12.3 SECONDS (9.0-12.0)
[2016-09-23 06:24] LABS: BUN/CREATININE RATIO 15.8 (10-20); CALCIUM 8.6 mg/dl (8.5-10.1); CREATININE 0.96 mg/dl (0.60-1.40); MAGNESIUM 2.2 mg/dl (1.8-2.4); POTASSIUM 3.9 mmol/L (3.5-5.1)
[2016-09-23 07:23] LABS: ESTIMATED AVERAGE GLUCOSE 206 mg/dl; HA1C FLAG Normal (Normal)
[2016-09-23 07:30] VITALS: BP 182/87; PULSE 102; TEMP 36.4; O2SAT 92
[2016-09-23] MEDS: SODIUM CHLORIDE 0.9% 1000ML 1,000 ML IV SCH ×2 (07:54→16:02)
[2016-09-23] MEDS: NYSTATIN POWDER 15GM BTL EXT SCH ×4 (07:54→20:47)
[2016-09-23] MEDS: METOPROLOL TARTRATE 50 MG TAB PO SCH ×2 (07:55→20:50)
[2016-09-23] MEDS: DILTIAZEM HCL 120 MG EXT REL CAP PO SCH (07:55)
[2016-09-23] MEDS: MULTIVITAMIN TAB PO SCH (07:55)
[2016-09-23] MEDS: LISINOPRIL 40 MG TAB PO SCH (07:55)
[2016-09-23] MEDS: TIMOLOL MALEATE 0.25% OP SOLN 5 ML BTL OP SCH ×2 (07:55→20:47)
[2016-09-23] MEDS: DOCUSATE SODIUM 100 MG CAP PO SCH (07:55)
[2016-09-23] MEDS: BACLOFEN 10 MG TAB PO SCH ×4 (07:56→20:47)
[2016-09-23] MEDS: INSULIN ASPART 100 UNITS/ML 3 ML PEN SC SCH ×4 (08:00→20:55)
[2016-09-23] MEDS ORDERED: HEPARIN IV LOW DOSE NO BOLUS SCH (09:00)
--- NOTE | 2016-09-23 09:21 | DIAGNOSTIC IMAGING REPORT ---
CHEST 2 VIEWS ROUTINE CLINICAL HISTORY: Follow up left lower lobe infiltrate. COMPARISON STUDY: Chest radiograph September 22, 2016. FINDINGS: There is no pneumothorax. There is no lobar consolidation. Cardiomediastinal silhouette is stable. There is mild interstitial thickening and possible hazy bilateral opacities. IMPRESSION: Interstitial thickening and hazy bilateral opacities. The findings could reflect pulmonary edema or an infectious process. Electronically signed by: Redd Fan M.D. 09/23/2016 9:19 AM Dictated Date/Time: 09/23/2016 9:18 AM
--- NOTE | 2016-09-23 10:17 | Progress Note ---
Subjective Date of Service: Sep 23, 2016. Subjective Pt evaluation today including: conversation w/ patient, physical exam, chart review, lab review Pain: minimal Pt says h feels slightly weaker today but is alert Problem List Medical Problems: (1) Catheter (urine) change required Status: Acute (2) Cellulitis Status: Acute (3) Complication of catheter Status: Acute (4) History of sepsis Status: Acute (5) Lower extremity ulceration Status: Acute (6) Scrotal mass Status: Acute (7) Sepsis Status: Acute (8) Urinary retention Status: Acute Objective Vital Signs Date Time Temp Pulse Resp B/P Pulse Ox O2 Delivery O2 Flow Rate FiO2 09/23/16 08:00 Room Air 09/23/16 07:30 36.4 102 12 182/87 92 Room Air 09/23/16 04:00 Room Air 09/23/16 03:34 36.5 87 17 152/69 92 Room Air 09/23/16 00:01 Room Air 09/22/16 23:40 37.1 80 17 152/100 95 Room Air 09/22/16 20:28 36.9 97 18 192/103 92 193/95 09/22/16 20:00 Room Air 09/22/16 16:10 36.8 103 20 175/89 91 Room Air 09/22/16 16:00 92 Room Air 09/22/16 13:45 36.9 89 20 162/92 92 Room Air 09/22/16 13:06 97 22 149/78 94 09/22/16 12:12 106 09/22/16 11:15 83 20 151/88 Physical Exam General Appearance: no apparent distress Comments: left hemiscrotum with distinctly less erythema, almost none nontender and less indurated scrotal wall r side remains nl Laboratory Results Last 24 Hours Test 09/22/16 16:05 09/22/16 16:24 09/22/16 21:00 09/23/16 05:20 Hemoglobin 13.7 g/dL 13.9 g/dL Hematocrit 41.8 % 43.4 % Bedside Glucose 206 mg/dl 166 mg/dl White Blood Count 11.22 K/uL Red Blood Count 5.29 M/uL Mean Corpuscular Volume 82.0 fL Mean Corpuscular Hemoglobin 26.3 pg Mean Corpuscular Hemoglobin Concent 32.0 g/dl RDW Standard Deviation 48.1 fL RDW Coefficient of Variation 16.0 % Platelet Count 287 K/uL Mean Platelet Volume 11.1 fL Prothrombin Time 12.3 SECONDS Prothromb Time International Ratio 1.1 Activated Partial Thromboplast Time 33.4 SECONDS Partial Thromboplastin Ratio 1.3 Sodium Level 142 mmol/L Potassium Level 3.9 mmol/L Chloride Level 105 mmol/L Carbon Dioxide Level 27 mmol/L Anion Gap 10.0 mmol/L Blood Urea Nitrogen 15 mg/dl Creatinine 0.96 mg/dl Est Creatinine Clear Calc Drug Dose 88.8 ml/min Estimated GFR () 91.8 Estimated GFR (Non- 79.2 BUN/Creatinine Ratio 15.8 Random Glucose 219 mg/dl Estimated Average Glucose 206 mg/dl Hemoglobin A1c 8.8 % Calcium Level 8.6 mg/dl Magnesium Level 2.2 mg/dl Hepatitis C Antibody Screen NEG Test 09/23/16 06:43 Bedside Glucose 217 mg/dl Assessment and Plan pt off elequis one day now clinically scrotum appears better let pt eat and will reevaluate in am for possible drainage after being off elequis 48 hours
[2016-09-23] MEDS: FLUCONAZOLE / NSS 100 MG in PREMIXED NSS 50 ML IV SCH (12:17)
[2016-09-23 12:41] VITALS: BP 183/102; PULSE 110; TEMP 36.8; O2SAT 93
[2016-09-23] MEDS ORDERED: VANCOMYCIN TROUGH ONE (13:30)
--- NOTE | 2016-09-23 14:01 | Progress Note ---
Subjective Date of Service: Sep 23, 2016. Subjective Pt evaluation today including: conversation w/ patient, physical exam, chart review, lab review, review of inpatient medication list Problem List Medical Problems: (1) Catheter (urine) change required Status: Acute (2) Cellulitis Status: Acute (3) Complication of catheter Status: Acute (4) History of sepsis Status: Acute (5) Lower extremity ulceration Status: Acute (6) Scrotal mass Status: Acute (7) Sepsis Status: Acute (8) Urinary retention Status: Acute Review of Systems Constitutional: No chills, No fatigue, No fever, No problem reported, No see HPI, No sweats, No weakness, No weight loss Eyes: No diplopia, No discharge, No eye pain, No problem reported, No redness, No see HPI, No worsening of vision ENT: No dental problems, No hearing loss, No nasal symptoms, No problem reported, No see HPI, No sore throat, No tinnitus, No trouble swallowing, No unusual epistaxis Respiratory: No cough, No dyspnea at rest, No dyspnea on exertion, No hemoptysis, No problem reported, No see HPI, No shortness of breath, No sputum, No wheezing Cardiac: No PND, No chest pain, No claudication, No edema, No orthopnea, No palpitations, No problem reported, No see HPI Abdomen: No GI bleeding, No constipation, No diarrhea, No nausea, No pain, No problem reported, No see HPI, No vomiting Musculoskeletal: No calf pain, No joint pain, No muscle pain, No problem reported, No see HPI, No swelling Male : + problem reported (scrotal swelling / pain), No dysuria, No hematuria , No incontinence, No nocturia more than once/night, No see HPI, No sexual dysfunction, No slowing stream, No urinary frequency Neurologic: No balance problems, No memory loss, No numbness/tingling, No paralysis, No problem reported, No see HPI, No vertigo, No weakness Psychiatric: No anhedonism, No anxiety, No depression symptoms, No insomnia, No problem reported, No see HPI, No substance abuse Heme: No abnormal bleeding/bruising, No clotting problems, No night sweats, No problem reported, No see HPI, No swollen lymph nodes Endo: No excessive thirst, No excessive urination, No fatigue, No problem reported, No see HPI Skin: No bleeding, No color change, No itch, No new/changing skin lesions, No problem reported, No rash, No see HPI Medications Current Inpatient Medications Medications (Trade) Dose Ordered Sig/Gee Route Start Time Stop Time Status Last Admin Dose Admin Ioversol (Optiray 320) 100 ml UD PRN IV 09/22/16 08:30 09/26/16 08:29 Acetaminophen (Tylenol Tab) 650 mg Q4H PRN PO 09/22/16 11:45 10/22/16 11:44 Al Hydrox/Mg Hydrox/Simethicone (Maalox Max Susp) 15 ml Q4H PRN PO 09/22/16 11:45 10/22/16 11:44 Magnesium Hydroxide (Milk Of Magnesia Susp) 30 ml Q12H PRN PO 09/22/16 11:45 10/22/16 11:44 09/22/16 17:16 30 ML Ondansetron HCl (Zofran Inj) 4 mg Q6H PRN IV 09/22/16 11:45 10/22/16 11:44 Polyethylene (Miralax Powder Packet) 17 gm DAILY PRN PO 09/22/16 11:45 10/22/16 11:44 Baclofen (Lioresal Tab) 10 mg QID PO 09/22/16 17:00 10/22/16 16:59 09/23/16 12:17 10 MG Diltiazem HCl (TIAzac CAP) 240 mg DAILY PO 09/23/16 09:00 10/23/16 08:59 09/23/16 07:55 240 MG Docusate Sodium (coLACE CAP) 100 mg DAILY PO 09/23/16 09:00 10/23/16 08:59 09/23/16 07:55 100 MG Lisinopril (Zestril Tab) 40 mg DAILY PO 09/23/16 09:00 10/23/16 08:59 09/23/16 07:55 40 MG Metoprolol Tartrate (Lopressor Tab) 50 mg BID PO 09/22/16 21:00 10/22/16 20:59 09/23/16 07:55 50 MG Multivitamins (Multivitamin Tab) 1 tab DAILY PO 09/23/16 09:00 10/23/16 08:59 09/23/16 07:55 1 TAB Timolol Maleate (Timoptic 0.25% Oph Soln) 1 drops BID OP 09/22/16 21:00 10/22/16 20:59 09/23/16 07:55 1 DROPS Insulin Aspart SLIDING SCALE G... ACHS SC 09/22/16 16:00 10/22/16 15:59 09/23/16 12:20 2 UNITS Ceftriaxone Sodium 2000 mg/ Dextrose 70 ml @ 100 mls/hr Q24H IV 09/22/16 16:00 10/02/16 15:59 09/22/16 16:30 100 MLS/HR Fluconazole/ Sodium Chloride/ Prmx (Diflucan IV/ Premixed Nss) 50 ml @ 100 mls/hr Q24H IV 09/23/16 14:00 10/03/16 13:59 09/23/16 12:17 100 MLS/HR Nystatin (Mycostatin Powder) 1 appln QID EXT 09/22/16 17:00 10/22/16 16:59 09/23/16 12:17 1 APPLN Glucose (Glucose 40% Gel) 15-30 GRAMS 15 GRAMS... UD PRN PO 09/22/16 14:15 10/22/16 14:14 Glucose (Glucose Chew Tab) 4-8 Tablets 4 Tabl... UD PRN PO 09/22/16 14:15 10/22/16 14:14 Dextrose (Dextrose 50% 50ML Syringe) 25-50ML OF 50% DW IV FOR... UD PRN IV 09/22/16 14:15 10/22/16 14:14 Glucagon (Glucagon Inj) 1 mg UD PRN SQ 09/22/16 14:15 10/22/16 14:14 Vancomycin HCl 1 ea 1 ea UD PRN N/A 09/22/16 14:15 10/22/16 14:14 Vancomycin HCl/ Sodium Chloride (Vancomycin Inj/ Nss 250ml) 274 ml @ 125 mls/hr Q12H IV 09/23/16 02:00 10/06/16 01:59 09/23/16 13:42 125 MLS/HR Morphine Sulfate (MoRPHine SULFATE INJ) 1 mg Q3H PRN IV 09/22/16 15:00 10/06/16 14:59 Tramadol HCl 50 mg 50 mg Q4H PRN PO 09/22/16 15:00 10/22/16 14:59 Sodium Chloride (Nss 1000ml) 1,000 ml @ 80 mls/hr [id number] IV 09/22/16 15:15 10/22/16 15:14 09/23/16 07:54 80 MLS/HR Objective Vital Signs Date Time Temp Pulse Resp B/P Pulse Ox O2 Delivery O2 Flow Rate FiO2 09/23/16 12:41 36.8 110 18 183/102 93 09/23/16 12:00 Room Air 09/23/16 08:00 Room Air 09/23/16 07:30 36.4 102 12 182/87 92 Room Air 09/23/16 04:00 Room Air 09/23/16 03:34 36.5 87 17 152/69 92 Room Air 09/23/16 00:01 Room Air 09/22/16 23:40 37.1 80 17 152/100 95 Room Air 09/22/16 20:28 36.9 97 18 192/103 92 193/95 09/22/16 20:00 Room Air 09/22/16 16:10 36.8 103 20 175/89 91 Room Air 09/22/16 16:00 92 Room Air Physical Exam General Appearance: no apparent distress Eyes: normal inspection, EOMI ENT: normal ENT inspection, hearing grossly normal Neck: supple Respiratory/Chest: chest non-tender, lungs clear, normal breath sounds, no respiratory distress, no accessory muscle use Cardiovascular: regular rate, rhythm, no edema, no gallop, no JVD, no murmur Abdomen: normal bowel sounds, non tender, soft, no organomegaly, no pulsatile mass Extremities: non-tender, + swelling, + pertinent finding (B/L multiple superficial ulcers) 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/Psychiatric: 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, no motor/sensory deficits, alert, normal mood/affect, oriented x 3, + motor weakness (B/L weakness in both lower Ext) Skin: normal color, warm/dry, no rash Laboratory Results Last 24 Hours Test 09/22/16 16:05 09/22/16 16:24 09/22/16 21:00 09/23/16 05:20 Hemoglobin 13.7 g/dL 13.9 g/dL Hematocrit 41.8 % 43.4 % Bedside Glucose 206 mg/dl 166 mg/dl White Blood Count 11.22 K/uL Red Blood Count 5.29 M/uL Mean Corpuscular Volume 82.0 fL Mean Corpuscular Hemoglobin 26.3 pg Mean Corpuscular Hemoglobin Concent 32.0 g/dl RDW Standard Deviation 48.1 fL RDW Coefficient of Variation 16.0 % Platelet Count 287 K/uL Mean Platelet Volume 11.1 fL Prothrombin Time 12.3 SECONDS Prothromb Time International Ratio 1.1 Activated Partial Thromboplast Time 33.4 SECONDS Partial Thromboplastin Ratio 1.3 Sodium Level 142 mmol/L Potassium Level 3.9 mmol/L Chloride Level 105 mmol/L Carbon Dioxide Level 27 mmol/L Anion Gap 10.0 mmol/L Blood Urea Nitrogen 15 mg/dl Creatinine 0.96 mg/dl Est Creatinine Clear Calc Drug Dose 88.8 ml/min Estimated GFR () 91.8 Estimated GFR (Non- 79.2 BUN/Creatinine Ratio 15.8 Random Glucose 219 mg/dl Estimated Average Glucose 206 mg/dl Hemoglobin A1c 8.8 % Calcium Level 8.6 mg/dl Magnesium Level 2.2 mg/dl Hepatitis C Antibody Screen NEG Test 09/23/16 06:43 09/23/16 11:37 09/23/16 13:33 Bedside Glucose 217 mg/dl 202 mg/dl Assessment and Plan Mr. Tran is a 71 y/o male with PMHx of Persistent Atrial Fibrillation, CKD Stage III, T2DM with Peripheral Neuropathy, HTN, Neurogenic Bladder, and Spinal Paraparesis who presents to the ED for painful and edematous right testicle 5 days. Assessment/ plan: right testicular swelling, abscess, hydrocele versus hemorrhage hold Eliquis Consult urologist obtain blood and urine Cx continue CTXN strept dose 2G daily plus vanco strict control of BS fluconazole and nystatin powder LLL Density Likely atelectasis Persistent Atrial Fibrillation / HTN: -continue holding eliquis - Diltiazem 40 mg daily and metoprolol 50 mg BID - Lisinopril 40 mg daily T2DM: 7.4 (December) - Hold glipizide and metformin - SSI - goal 120-160, correction factor 35 - Repeat HbA1c SCD boots for DVT prophylaxis
--- NOTE | 2016-09-23 15:36 | Pharmacy Progress Note ---
Pharmacy Antibiotic Prog Note Date of Service: Sep 23, 2016. Subjective: The patient is currently receiving vancomycin 1200 mg IV every 12 hours. The patient is currently on day # 2 of IV therapy. Urology saw the patient last night and this morning. There has been no I&D but it is believed the patient may require one. He remains afebrile and his white count remains unchanged. Per attending, patient's testicle appears better. Objective: Height (Feet): 5 Height (Inches): 10.00 Weight (Kilograms): 113.000 Levels: Item Value Date Time Vancomycin Level Trough 13.2 mcg/ml 09/23/16 1333 Lab Results (24hrs): Laboratory Tests Test 09/23/16 05:20 BUN/Creatinine Ratio 15.8 Blood Urea Nitrogen 15 mg/dl Creatinine 0.96 mg/dl White Blood Count 11.22 K/uL Assessment & Plan: This drug level is: Therapeutic Continue vancomycin 1200 mg IV every 12 hours. Goal peak level estimate: between 35 - 40 mcg/mL. Goal trough level estimate: between 10 - 15 mcg/mL (indication cellulitis). Trough has been ordered for: prior to 1400 dose. Pharmacy will continue to follow and will adjust dose/frequency as necessary. Thank you
[2016-09-23 15:41] VITALS: BP_SYST 159; BP_SYST 173; BP_DIAS 94; BP_DIAS 97; PULSE 93; TEMP 36.9; O2SAT 94
[2016-09-23] MEDS: CEFTRIAXONE SOD INJ 2,000 MG in DEXTROSE 5% 50ML 50 ML IV SCH (16:01)
[2016-09-23 19:34] VITALS: BP 167/88; PULSE 84; TEMP 36.6; O2SAT 93
[2016-09-23 23:24] VITALS: BP 124/71; PULSE 89; TEMP 36.8; O2SAT 92
[2016-09-24] VITALS (11 sets, daily range): BP systolic 144–195; BP diastolic 75–103; PULSE 71–136; TEMP 36.5–36.9; O2SAT 90–95
[2016-09-24] MEDS: VANCOMYCIN INJ 1,200 MG in SODIUM CHLORIDE 0.9% 250ML 250 ML IV SCH ×2 (01:58→15:27)
[2016-09-24 07:15] LABS: HEMATOCRIT 43.4 % (42-52); MEAN CELL VOLUME 82.7 fL (80-100); MEAN CORPUSCULAR HGB CONC 32.7 g/dl (32-36); MEAN PLATELET VOLUME 10.9 fL (7.4-10.4); PLATELET COUNT 311 K/uL (130-400); RED BLOOD COUNT 5.25 M/uL (4.7-6.1); WHITE BLOOD COUNT 11.17 K/uL (4.8-10.8)
[2016-09-24] MEDS: SODIUM CHLORIDE 0.9% 1000ML 1,000 ML IV SCH (07:36)
[2016-09-24] MEDS: BACLOFEN 10 MG TAB PO SCH ×4 (07:37→21:20)
[2016-09-24] MEDS: DILTIAZEM HCL 120 MG EXT REL CAP PO SCH (07:37)
[2016-09-24] MEDS: MULTIVITAMIN TAB PO SCH (07:37)
[2016-09-24] MEDS: DOCUSATE SODIUM 100 MG CAP PO SCH (07:37)
[2016-09-24] MEDS: LISINOPRIL 40 MG TAB PO SCH (07:37)
[2016-09-24] MEDS: METOPROLOL TARTRATE 50 MG TAB PO SCH ×2 (07:37→21:20)
[2016-09-24] MEDS: TIMOLOL MALEATE 0.25% OP SOLN 5 ML BTL OP SCH ×2 (07:38→21:20)
[2016-09-24] MEDS: NYSTATIN POWDER 15GM BTL EXT SCH ×4 (07:38→21:19)
[2016-09-24 07:41] LABS: CREATININE 0.97 mg/dl (0.60-1.40); MAGNESIUM 2.1 mg/dl (1.8-2.4); POTASSIUM 4.2 mmol/L (3.5-5.1)
[2016-09-24] MEDS: INSULIN ASPART 100 UNITS/ML 3 ML PEN SC SCH ×3 (09:08→21:24)
--- NOTE | 2016-09-24 11:26 | Progress Note ---
Subjective Date of Service: Sep 24, 2016. Subjective Pt evaluation today including: conversation w/ patient, physical exam, chart review, lab review, conversation w/ sales operations consultant Pain: minimal pain Voiding: pedraza catheter in place pt off elequis 48 hours discussed w patient pro and con of elective drainage now off elequis including persistent wbc elevation and fact he is diabetic and if he has pus or infected undrained fluid he may not heal completely or recur on elequis , Discussed he might get better on antibiotics only and not recur Problem List Medical Problems: (1) Catheter (urine) change required Status: Acute (2) Cellulitis Status: Acute (3) Complication of catheter Status: Acute (4) History of sepsis Status: Acute (5) Lower extremity ulceration Status: Acute (6) Scrotal mass Status: Acute (7) Sepsis Status: Acute (8) Urinary retention Status: Acute Objective Vital Signs Date Time Temp Pulse Resp B/P Pulse Ox O2 Delivery O2 Flow Rate FiO2 09/24/16 08:00 Room Air 09/24/16 07:45 36.7 136 22 171/86 94 Room Air 09/24/16 04:00 36.7 101 17 156/79 90 Room Air 09/24/16 04:00 Room Air 09/23/16 23:24 36.8 89 18 124/71 92 Room Air 09/23/16 20:00 Room Air 09/23/16 19:34 36.6 84 18 167/88 93 Room Air 09/23/16 16:00 Room Air 09/23/16 15:41 36.9 93 18 173/97 94 159/94 09/23/16 12:41 36.8 110 18 183/102 93 09/23/16 12:00 Room Air 09/23/16 11:59 Room Air Laboratory Results Last 24 Hours Test 09/23/16 11:37 09/23/16 13:33 09/23/16 16:24 09/23/16 20:50 Bedside Glucose 202 mg/dl 254 mg/dl 245 mg/dl Vancomycin Level Trough 13.2 mcg/ml Test 09/24/16 06:56 09/24/16 07:01 09/24/16 10:53 Bedside Glucose 200 mg/dl 215 mg/dl White Blood Count 11.17 K/uL Red Blood Count 5.25 M/uL Hemoglobin 14.2 g/dL Hematocrit 43.4 % Mean Corpuscular Volume 82.7 fL Mean Corpuscular Hemoglobin 27.0 pg Mean Corpuscular Hemoglobin Concent 32.7 g/dl RDW Standard Deviation 48.7 fL RDW Coefficient of Variation 16.2 % Platelet Count 311 K/uL Mean Platelet Volume 10.9 fL Sodium Level 141 mmol/L Potassium Level 4.2 mmol/L Chloride Level 105 mmol/L Carbon Dioxide Level 28 mmol/L Anion Gap 8.0 mmol/L Blood Urea Nitrogen 14 mg/dl Creatinine 0.97 mg/dl Est Creatinine Clear Calc Drug Dose 88.2 ml/min Estimated GFR () 90.7 Estimated GFR (Non- 78.2 BUN/Creatinine Ratio 14.0 Random Glucose 233 mg/dl Calcium Level 9.0 mg/dl Magnesium Level 2.1 mg/dl Assessment and Plan pt off elequis two days now clinically scrotum appears better but given persistent wbc elevation and hx of diabetes and radiology interpretation of comple fluid around scrotum plam small i and d under local w sedation and drain placement and culture pt could resume elequis later today or in am Continued [facility] stay due to: voiding difficulties, multiple IV medications needed, other
[2016-09-24] MEDS ORDERED: ATROPINE SULFATE 0.1 MG/ML 5ML SYR IV PRN (11:45)
[2016-09-24] MEDS ORDERED: EpHEDrine SULFATE INJ 50 MG/ML AMP IV PRN (11:45)
[2016-09-24] MEDS ORDERED: ONDANSETRON INJ 2 MG/ML 2 ML VIAL IV PRN (11:45)
[2016-09-24] MEDS ORDERED: FENTANYL CITRATE INJ 50 MCG/1 ML 2 ML VIAL IV PRN (11:45)
[2016-09-24] MEDS ORDERED: BACITRACIN 50000 UNIT VIAL ONE (12:26)
[2016-09-24] MEDS ORDERED: BUPIVACAINE 0.5 % 5 MG/1 ML MPF 30ML VIAL ONE (12:27)
[2016-09-24] MEDS ORDERED: LIDOCAINE HCL 2% 2 ML VIAL (20MG/ML) ONE (12:30)
[2016-09-24] MEDS ORDERED: PROPOFOL IV EMULSION 10 MG/ML 20 ML VIAL IV ONE ×2 (12:30→13:27)
[2016-09-24] MEDS ORDERED: FENTANYL CITRATE INJ 50 MCG/1 ML 2 ML VIAL ONE (12:31)
[2016-09-24] MEDS ORDERED: MIDAZOLAM HCL 1 MG/ML 2ML VIAL ONE (12:31)
[2016-09-24] MEDS ORDERED: VANCOMYCIN TROUGH ONE (13:30)
--- NOTE | 2016-09-24 13:34 | Anesthesiology Progress Note ---
Anesthesia Post Op Note Date & Time Sep 24, 2016 at 13:35 Vital Signs Pain Intensity: 0.0 Vital Signs Past 12 Hours Date Time Temp Pulse Resp B/P Pulse Ox O2 Delivery O2 Flow Rate FiO2 09/24/16 12:00 Room Air 09/24/16 11:47 36.9 88 22 153/93 95 Room Air 09/24/16 08:00 Room Air 09/24/16 07:45 36.7 136 22 171/86 94 Room Air 09/24/16 04:00 36.7 101 17 156/79 90 Room Air 09/24/16 04:00 Room Air Notes Mental Status: alert / awake / arousable, participated in evaluation Pt Amnestic to Procedure: Yes Nausea / Vomiting: adequately controlled Pain: adequately controlled Airway Patency, RR, SpO2: stable & adequate BP & HR: stable & adequate Hydration State: stable & adequate Anesthetic Complications: no major complications apparent
--- NOTE | 2016-09-24 13:40 | [facility] Post Operative Brief Note ---
Immediate Operative Summary Operative Date Sep 24, 2016. Pre-Operative Diagnosis Right scrotal abscess Post-Operative Diagnosis Same as pre-operative diagnosis Procedure(s) Performed Incision & Drainage Right Scrotal Abscess Surgeon Dr. Donovan Barragan Advertising Columnist Surgeon(s) None Estimated Blood Loss 15ml Findings indurated scrotal wall cloudy fluid not puss Specimens Culture #1: Scrotal fluid for routine culture & sensitivity, gram stain, anaerobic/aerobic Drains iodoform gauze
[2016-09-24] MEDS: FLUCONAZOLE / NSS 100 MG in PREMIXED NSS 50 ML IV SCH (14:17)
--- NOTE | 2016-09-24 15:33 | Progress Note ---
Subjective Date of Service: Sep 24, 2016. Subjective Pt evaluation today including: conversation w/ patient, physical exam, chart review, lab review, review of inpatient medication list Problem List Medical Problems: (1) Catheter (urine) change required Status: Acute (2) Cellulitis Status: Acute (3) Complication of catheter Status: Acute (4) History of sepsis Status: Acute (5) Lower extremity ulceration Status: Acute (6) Scrotal mass Status: Acute (7) Sepsis Status: Acute (8) Urinary retention Status: Acute Review of Systems Constitutional: No chills, No fatigue, No fever, No problem reported, No see HPI, No sweats, No weakness, No weight loss Eyes: No diplopia, No discharge, No eye pain, No problem reported, No redness, No see HPI, No worsening of vision ENT: No dental problems, No hearing loss, No nasal symptoms, No problem reported, No see HPI, No sore throat, No tinnitus, No trouble swallowing, No unusual epistaxis Respiratory: No cough, No dyspnea at rest, No dyspnea on exertion, No hemoptysis, No problem reported, No see HPI, No shortness of breath, No sputum, No wheezing Cardiac: No PND, No chest pain, No claudication, No edema, No orthopnea, No palpitations, No problem reported, No see HPI Abdomen: No GI bleeding, No constipation, No diarrhea, No nausea, No pain, No problem reported, No see HPI, No vomiting Musculoskeletal: No calf pain, No joint pain, No muscle pain, No problem reported, No see HPI, No swelling Male : + problem reported (scrotal swelling), No dysuria, No hematuria, No incontinence, No nocturia more than once/night, No see HPI, No sexual dysfunction, No slowing stream, No urinary frequency Neurologic: + problem reported (b/l spastic paraplegia), No balance problems, No memory loss, No numbness/tingling, No paralysis, No see HPI, No vertigo, No weakness Psychiatric: No anhedonism, No anxiety, No depression symptoms, No insomnia, No problem reported, No see HPI, No substance abuse Heme: No abnormal bleeding/bruising, No clotting problems, No night sweats, No problem reported, No see HPI, No swollen lymph nodes Endo: No excessive thirst, No excessive urination, No fatigue, No problem reported, No see HPI Skin: No bleeding, No color change, No itch, No new/changing skin lesions, No problem reported, No rash, No see HPI Medications Current Inpatient Medications Medications (Trade) Dose Ordered Sig/Gee Route Start Time Stop Time Status Last Admin Dose Admin Ioversol (Optiray 320) 100 ml UD PRN IV 09/22/16 08:30 4 08:29 Acetaminophen (Tylenol Tab) 650 mg Q4H PRN PO 09/22/16 11:45 10/22/16 11:44 Al Hydrox/Mg Hydrox/Simethicone (Maalox Max Susp) 15 ml Q4H PRN PO 09/22/16 11:45 10/22/16 11:44 Magnesium Hydroxide (Milk Of Magnesia Susp) 30 ml Q12H PRN PO 09/22/16 11:45 10/22/16 11:44 09/22/16 17:16 30 ML Ondansetron HCl (Zofran Inj) 4 mg Q6H PRN IV 09/22/16 11:45 10/22/16 11:44 Polyethylene (Miralax Powder Packet) 17 gm DAILY PRN PO 09/22/16 11:45 10/22/16 11:44 Baclofen (Lioresal Tab) 10 mg QID PO 09/22/16 17:00 10/22/16 16:59 09/23/16 20:47 10 MG Diltiazem HCl (TIAzac CAP) 240 mg DAILY PO 09/23/16 09:00 10/23/16 08:59 09/23/16 07:55 240 MG Docusate Sodium (coLACE CAP) 100 mg DAILY PO 09/23/16 09:00 10/23/16 08:59 09/23/16 07:55 100 MG Lisinopril (Zestril Tab) 40 mg DAILY PO 09/23/16 09:00 10/23/16 08:59 09/23/16 07:55 40 MG Metoprolol Tartrate (Lopressor Tab) 50 mg BID PO 09/22/16 21:00 10/22/16 20:59 09/23/16 20:50 50 MG Multivitamins (Multivitamin Tab) 1 tab DAILY PO 09/23/16 09:00 10/23/16 08:59 09/23/16 07:55 1 TAB Timolol Maleate (Timoptic 0.25% Oph Soln) 1 drops BID OP 09/22/16 21:00 10/22/16 20:59 09/23/16 20:47 1 DROPS Insulin Aspart SLIDING SCALE G... ACHS SC 09/22/16 16:00 10/22/16 15:59 09/23/16 20:55 3 UNITS Ceftriaxone Sodium 2000 mg/ Dextrose 70 ml @ 100 mls/hr Q24H IV 09/22/16 16:00 10/02/16 15:59 09/23/16 16:01 100 MLS/HR Fluconazole/ Sodium Chloride/ Prmx (Diflucan IV/ Premixed Nss) 50 ml @ 100 mls/hr Q24H IV 09/23/16 14:00 10/03/16 13:59 09/23/16 12:17 100 MLS/HR Nystatin (Mycostatin Powder) 1 appln QID EXT 09/22/16 17:00 10/22/16 16:59 09/23/16 20:47 1 APPLN Glucose (Glucose 40% Gel) 15-30 GRAMS 15 GRAMS... UD PRN PO 09/22/16 14:15 10/22/16 14:14 Glucose (Glucose Chew Tab) 4-8 Tablets 4 Tabl... UD PRN PO 09/22/16 14:15 10/22/16 14:14 Dextrose (Dextrose 50% 50ML Syringe) 25-50ML OF 50% DW IV FOR... UD PRN IV 09/22/16 14:15 10/22/16 14:14 Glucagon (Glucagon Inj) 1 mg UD PRN SQ 09/22/16 14:15 10/22/16 14:14 Vancomycin HCl 1 ea 1 ea UD PRN N/A 09/22/16 14:15 10/22/16 14:14 Vancomycin HCl/ Sodium Chloride (Vancomycin Inj/ Nss 250ml) 274 ml @ 125 mls/hr Q12H IV 09/23/16 02:00 10/06/16 01:59 09/24/16 01:58 125 MLS/HR Morphine Sulfate (MoRPHine SULFATE INJ) 1 mg Q3H PRN IV 09/22/16 15:00 10/06/16 14:59 Tramadol HCl 50 mg 50 mg Q4H PRN PO 09/22/16 15:00 10/22/16 14:59 Sodium Chloride (Nss 1000ml) 1,000 ml @ 80 mls/hr [id number] IV 09/22/16 15:15 10/22/16 15:14 09/23/16 16:02 80 MLS/HR Zolpidem Tartrate (Ambien Tab) 10 mg HS PRN PO 09/23/16 21:30 10/23/16 21:29 Objective Vital Signs Date Time Temp Pulse Resp B/P Pulse Ox O2 Delivery O2 Flow Rate FiO2 09/24/16 04:00 36.7 101 17 156/79 90 Room Air 09/24/16 04:00 Room Air 09/23/16 23:24 36.8 89 18 124/71 92 Room Air 09/23/16 20:00 Room Air 09/23/16 19:34 36.6 84 18 167/88 93 Room Air 09/23/16 16:00 Room Air 09/23/16 15:41 36.9 93 18 173/97 94 159/94 09/23/16 12:41 36.8 110 18 183/102 93 09/23/16 12:00 Room Air 09/23/16 11:59 Room Air 09/23/16 08:00 Room Air Physical Exam General Appearance: no apparent distress Eyes: normal inspection, EOMI ENT: normal ENT inspection, hearing grossly normal, TMs normal Neck: supple Respiratory/Chest: chest non-tender, lungs clear, normal breath sounds, no respiratory distress, no accessory muscle use Cardiovascular: regular rate, rhythm, no edema, no gallop, no JVD, no murmur Abdomen: normal bowel sounds, non tender, soft, no organomegaly Extremities: non-tender, + swelling, + pertinent finding 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, no motor/sensory deficits, alert, normal mood/affect, oriented x 3 Skin: normal color, warm/dry, no rash Laboratory Results Last 24 Hours Test 09/23/16 11:37 09/23/16 13:33 09/23/16 16:24 09/23/16 20:50 Bedside Glucose 202 mg/dl 254 mg/dl 245 mg/dl Vancomycin Level Trough 13.2 mcg/ml Test 09/24/16 06:56 09/24/16 07:01 Bedside Glucose 200 mg/dl White Blood Count 11.17 K/uL Red Blood Count 5.25 M/uL Hemoglobin 14.2 g/dL Hematocrit 43.4 % Mean Corpuscular Volume 82.7 fL Mean Corpuscular Hemoglobin 27.0 pg Mean Corpuscular Hemoglobin Concent 32.7 g/dl RDW Standard Deviation 48.7 fL RDW Coefficient of Variation 16.2 % Platelet Count 311 K/uL Mean Platelet Volume 10.9 fL Assessment and Plan Mr. Tran is a 71 y/o male with PMHx of Persistent Atrial Fibrillation, CKD Stage III, T2DM with Peripheral Neuropathy, HTN, Neurogenic Bladder, and Spinal Paraparesis who presents to the ED for painful and edematous right testicle 5 days. Assessment/ plan: right testicular swelling, abscess versus hemorrhage hold Eliquis Consult urologist/Dr. Barragan appreciated, elective drainage at some point today or tomorrow F/U blood and urine Cx continue CTXN 2G daily plus vanco strict control of BS intertrigo fungal infection fluconazole and nystatin powder LLL Density Likely atelectasis Persistent Atrial Fibrillation / HTN: -continue holding eliquis - Diltiazem 40 mg daily and metoprolol 50 mg BID - Lisinopril 40 mg daily T2DM: 7.4 (December) - Hold glipizide and metformin - SSI - goal 120-160, correction factor 35 - Repeat HbA1c SCD boots for DVT prophylaxis
[2016-09-24] MEDS ORDERED: NURSING VERBAL MED ORDER ONE (17:00)
[2016-09-24] MEDS: CEFTRIAXONE SOD INJ 2,000 MG in DEXTROSE 5% 50ML 50 ML IV SCH (17:01)
--- NOTE | 2016-09-24 18:19 | OPERATIVE REPORT ---
DATE OF OPERATION: 09/24/2016 PROCEDURE PERFORMED: Incision and drainage of scrotal infection. PREOPERATIVE DIAGNOSIS: History of infections possible scrotal abscess. POSTOPERATIVE DIAGNOSIS: Same. SURGEON: Dr. Barragan. ANESTHESIA: Local and sedation. INDICATIONS: The patient is a 71-year-old male who was admitted with a scrotal inflammation consistent with infection and had a sonogram that was suspicious for either a hematoma or abscess because he was on Eliquis and had eaten the day of admission. We observed him on antibiotics, he seemed to improve, but because there was a question of an abscess we kept him off Eliquis, made him n.p.o. last night and today given that there was still improvement, but obvious thickening of the testicle and area around the testicle, he was taken to the operating room for elective incision and drainage. DESCRIPTION OF THE PROCEDURE: The patient was taken to the operating room and placed in the supine position. He was shaved, prepped and draped in the usual sterile fashion. The patient was given sedation. The scrotum was pushed up so that the anterior and inferior wall of the testis sac and hydrocele sac that was indurated was up against the wall. Skin and the subcutaneous tissues were infiltrated, incision was made, it was very hyperemic because of the Eliquis and the hyperemic tissue. This areas was fulgurated down to a very thick hydrocele sac which was incised, some cloudy fluid came out, which was cultured. I was able to place a hemostat through this, opened this area up, tried to make sure there were no areas of loculation which I did not feel obviously and was able to pack with iodoform gauze and then after all the fluid appeared to be expressed and gave the patient dressing of fluff dressings and a scrotal support. The patient was transferred to recovery room in stable condition. I attest to the content of the Intraoperative Record and any orders documented therein. Any exceptio ns are noted below.
[2016-09-24] MEDS: ZOLPIDEM TARTRATE 10 MG TAB PO PRN (21:23)
[2016-09-24] MEDS ORDERED: COUGH DROP (SUGAR FREE) LOZ 24 LOZ/1 BOX ONE (21:24)
[2016-09-25] MEDS: VANCOMYCIN INJ 1,200 MG in SODIUM CHLORIDE 0.9% 250ML 250 ML IV SCH ×2 (02:09→14:07)
[2016-09-25 03:20] VITALS: BP 148/54; PULSE 98; O2SAT 94
[2016-09-25 04:00] VITALS: BP_SYST 158; BP_SYST 194; BP_DIAS 101; BP_DIAS 116; PULSE 118; TEMP 36.9; O2SAT 91
[2016-09-25 06:53] LABS: BASO % 0.4 %; BASO ABS # 0.05 K/uL (0-0.2); COMPLETE YES; HEMATOCRIT 42.8 % (42-52); IG% 0.2 %; LYMPH % 12.7 %; LYMPH ABS # 1.61 K/uL (1.2-3.4); MEAN CELL VOLUME 81.1 fL (80-100); MEAN CORPUSCULAR HEMOGLOBIN 26.3 pg (25-34); MEAN CORPUSCULAR HGB CONC 32.5 g/dl (32-36); MEAN PLATELET VOLUME 10.6 fL (7.4-10.4); MONO % 7.2 %; NEUT % 75.5 %; PLATELET COUNT 296 K/uL (130-400); RED BLOOD COUNT 5.28 M/uL (4.7-6.1); WHITE BLOOD COUNT 12.67 K/uL (4.8-10.8)
[2016-09-25] MEDS: BACLOFEN 10 MG TAB PO SCH ×4 (07:07→21:33)
[2016-09-25] MEDS: DILTIAZEM HCL 120 MG EXT REL CAP PO SCH (07:07)
[2016-09-25] MEDS: METOPROLOL TARTRATE 50 MG TAB PO SCH ×2 (07:07→21:32)
[2016-09-25] MEDS: NYSTATIN POWDER 15GM BTL EXT SCH ×4 (07:08→21:32)
[2016-09-25] MEDS: MULTIVITAMIN TAB PO SCH (07:08)
[2016-09-25] MEDS: TIMOLOL MALEATE 0.25% OP SOLN 5 ML BTL OP SCH ×2 (07:08→21:32)
[2016-09-25] MEDS: LISINOPRIL 40 MG TAB PO SCH (07:08)
[2016-09-25] MEDS: DOCUSATE SODIUM 100 MG CAP PO SCH (07:08)
[2016-09-25 07:30] LABS: BUN/CREATININE RATIO 14.2 (10-20); CALCIUM 8.9 mg/dl (8.5-10.1); CREATININE 0.88 mg/dl (0.60-1.40); MAGNESIUM 2.1 mg/dl (1.8-2.4); POTASSIUM 4.3 mmol/L (3.5-5.1)
[2016-09-25 07:33] LABS: ALB/GLOB RATIO 0.6 (0.9-2)
[2016-09-25 07:41] VITALS: BP 159/104; PULSE 118; TEMP 36.7; O2SAT 92
--- NOTE | 2016-09-25 10:04 | Progress Note ---
Subjective Date of Service: Sep 25, 2016. (Thea Fernandez CRNP) Subjective Pt evaluation today including: conversation w/ patient, chart review, lab review Voiding: pedraza catheter in place (patent, draining clear, yellow urine) 71 yo male s/p I&D of scrotum. Reports several times this morning he is "now in gear" and understanding of the situation. He is oriented to place and time. Denies scrotal pain this morning. White count slightly increased to 12.67 this morning. Wound culture pending. He is currently on ceftriaxone and vancomycin. (Thea Fernandez CRNP) Problem List Medical Problems: (1) Catheter (urine) change required Status: Acute (2) Cellulitis Status: Acute (3) Complication of catheter Status: Acute (4) History of sepsis Status: Acute (5) Lower extremity ulceration Status: Acute (6) Scrotal mass Status: Acute (7) Sepsis Status: Acute (8) Urinary retention Status: Acute (Thea Fernandez CRNP) Review of Systems Constitutional: No chills, No fever Respiratory: No shortness of breath Cardiac: No chest pain Abdomen: No nausea, No pain, No vomiting Male : No dysuria, No hematuria Heme: No abnormal bleeding/bruising (Thea Fernandez CRNP) Objective Vital Signs Date Time Temp Pulse Resp B/P Pulse Ox O2 Delivery O2 Flow Rate FiO2 09/25/16 08:00 Room Air 09/25/16 07:41 36.7 118 16 159/104 92 Room Air 09/25/16 04:00 36.9 118 18 158/101 91 194/116 09/25/16 04:00 Room Air 09/25/16 03:20 98 148/54 94 Room Air 09/24/16 23:59 Room Air 09/24/16 23:59 36.5 81 18 150/75 92 09/24/16 20:00 Room Air 09/24/16 19:33 36.7 102 20 144/86 92 Room Air 09/24/16 16:00 71 18 174/84 93 09/24/16 16:00 Room Air 09/24/16 15:30 82 18 186/95 93 09/24/16 15:27 36.6 83 20 166/89 92 Room Air 09/24/16 15:00 79 18 195/78 92 Room Air 09/24/16 14:40 86 18 172/103 93 Room Air 09/24/16 14:15 36.6 98 18 168/90 91 Room Air 09/24/16 13:55 36.4 91 20 159/92 93 Room Air 09/24/16 13:45 84 20 167/93 93 Room Air 09/24/16 13:35 96 20 156/93 94 Room Air 09/24/16 13:20 36.4 96 18 145/88 99 Room Air 09/24/16 12:00 Room Air 09/24/16 11:47 36.9 88 22 153/93 95 Room Air (Thea Fernandez CRNP) Physical Exam General Appearance: no apparent distress Eyes: normal inspection ENT: hearing grossly normal Neck: no JVD Respiratory/Chest: no respiratory distress, no accessory muscle use Cardiovascular: no JVD Extremities: normal inspection Neurologic/Psychiatric: alert, normal mood/affect, oriented x 3 Skin: normal color Comments: scrotal edema persists with wound packing in place (Thea Fernandez CRNP) Laboratory Results Last 24 Hours Test 09/24/16 10:53 09/24/16 13:33 09/24/16 16:35 09/24/16 20:05 Bedside Glucose 215 mg/dl 206 mg/dl 227 mg/dl 216 mg/dl Test 09/25/16 06:32 09/25/16 06:47 White Blood Count 12.67 K/uL Red Blood Count 5.28 M/uL Hemoglobin 13.9 g/dL Hematocrit 42.8 % Mean Corpuscular Volume 81.1 fL Mean Corpuscular Hemoglobin 26.3 pg Mean Corpuscular Hemoglobin Concent 32.5 g/dl Platelet Count 296 K/uL Mean Platelet Volume 10.6 fL Neutrophils (%) (Auto) 75.5 % Lymphocytes (%) (Auto) 12.7 % Monocytes (%) (Auto) 7.2 % Eosinophils (%) (Auto) 4.0 % Basophils (%) (Auto) 0.4 % Neutrophils # (Auto) 9.56 K/uL Lymphocytes # (Auto) 1.61 K/uL Monocytes # (Auto) 0.91 K/uL Eosinophils # (Auto) 0.51 K/uL Basophils # (Auto) 0.05 K/uL RDW Standard Deviation 47.3 fL RDW Coefficient of Variation 16.0 % Immature Granulocyte % (Auto) 0.2 % Immature Granulocyte # (Auto) 0.03 K/uL Sodium Level 140 mmol/L Potassium Level 4.3 mmol/L Chloride Level 105 mmol/L Carbon Dioxide Level 26 mmol/L Anion Gap 9.0 mmol/L Blood Urea Nitrogen 12 mg/dl Creatinine 0.88 mg/dl Est Creatinine Clear Calc Drug Dose 97.2 ml/min Estimated GFR () 100.2 Estimated GFR (Non- 86.4 BUN/Creatinine Ratio 14.2 Random Glucose 230 mg/dl Calcium Level 8.9 mg/dl Phosphorus Level 3.0 mg/dl Magnesium Level 2.1 mg/dl Total Bilirubin 1.0 mg/dl Aspartate Amino Transf (AST/SGOT) 13 U/L Alanine Aminotransferase (ALT/SGPT) 27 U/L Alkaline Phosphatase 95 U/L Total Protein 7.5 gm/dl Albumin 2.9 gm/dl Globulin 4.6 gm/dl Albumin/Globulin Ratio 0.6 Bedside Glucose 221 mg/dl (Thea Fernandez CRNP) Assessment and Plan POD #1 s/p I&D of scrotum Continue IV abx pending wound culture sensitivities. Would then transition to 14 days of oral therapy if possible. Will consult the wound care nurse for wound packing changes. The pt will need daily wound packing until wound is healed. May attempt a trial of void prior to d/c home. Will plan to f/u with him as an outpatient early next week. Will continue to follow along with primary service at this time. Continued [facility] stay due to: voiding difficulties, multiple IV medications needed, other (Thea Fernandez CRNP) agree with above pt needs to have wound packed by wound nurse (Donovan Barragan M.D.)
[2016-09-25] MEDS: INSULIN ASPART 100 UNITS/ML 3 ML PEN SC SCH ×4 (11:17→21:38)
[2016-09-25 11:49] VITALS: BP 159/104; PULSE 118; TEMP 36.7; O2SAT 92
[2016-09-25 11:54] VITALS: BP 155/92; PULSE 88; TEMP 36.9; O2SAT 93
[2016-09-25 12:28] VITALS: BMI 36.0
[2016-09-25] MEDS: FLUCONAZOLE / NSS 100 MG in PREMIXED NSS 50 ML IV SCH (12:56)
[2016-09-25] MEDS ORDERED: VANCOMYCIN TROUGH SCH (13:30)
--- NOTE | 2016-09-25 14:49 | Pharmacy Progress Note ---
Pharmacy Antibiotic Prog Note Date of Service: Sep 25, 2016. Subjective: The patient is currently receiving vancomycin 1200 mg IV every 12 hours. The patient is currently on day # 4 of vancomycin IV therapy for scrotal abscess. S/P I&D on 09/24. Objective: Height (Feet): 5 Height (Inches): 10.00 Weight (Kilograms): 113.700 Levels: Item Value Date Time Vancomycin Level Trough 12.3 mcg/ml 09/25/16 1340 Previous dose hung 09/25/16 @0209. Lab Results (24hrs): Laboratory Tests Test 09/25/16 06:32 BUN/Creatinine Ratio 14.2 Blood Urea Nitrogen 12 mg/dl Creatinine 0.88 mg/dl White Blood Count 12.67 K/uL Red Blood Count 5.28 M/uL Hemoglobin 13.9 g/dL Hematocrit 42.8 % Mean Corpuscular Volume 81.1 fL Mean Corpuscular Hemoglobin 26.3 pg Mean Corpuscular Hemoglobin Concent 32.5 g/dl Platelet Count 296 K/uL Mean Platelet Volume 10.6 fL Neutrophils (%) (Auto) 75.5 % Lymphocytes (%) (Auto) 12.7 % Monocytes (%) (Auto) 7.2 % Eosinophils (%) (Auto) 4.0 % Basophils (%) (Auto) 0.4 % Neutrophils # (Auto) 9.56 K/uL Lymphocytes # (Auto) 1.61 K/uL Monocytes # (Auto) 0.91 K/uL Eosinophils # (Auto) 0.51 K/uL Basophils # (Auto) 0.05 K/uL Micro Results: 09/22 blood x2 NGTD 09/22 urine- contaminated 09/24 abscess scrotum- NGTD Recent Pertinent Medications: Item Value Date Time Fluconazole/ 50 ml @ 100 mls/hr 09/23/16 1400 Sodium Chloride Q24H/IV 09/25/16 1256 100 mg/Prmx Vancomycin HCl 274 ml @ 125 mls/hr 09/23/16 0200 1200 mg/Sodium Q12H/IV 09/25/16 1407 Chloride Ceftriaxone 70 ml @ 100 mls/hr 09/22/16 1600 Sodium 2000 mg/ Q24H/IV 09/24/16 1701 Dextrose Assessment & Plan: This drug level is: Therapeutic, and progress notes report improvement. Continue vancomycin 1200 mg IV every 12 hours. Goal trough level estimate: between 10-15 mcg/mL. Will recheck trough in a few days if stable to monitor for accumulation. Pharmacy will continue to follow and will adjust dose/frequency as necessary. Thank you
--- NOTE | 2016-09-25 15:56 | Progress Note ---
Subjective Date of Service: Sep 25, 2016. Subjective Pt evaluation today including: conversation w/ patient, physical exam, lab review, review of studies, conversation w/ internal consultant, review of inpatient medication list Pain: no scrotal pain PO Intake: adequate Voiding: pedraza catheter in place no complaints today, says he feels well eating a lot very weak but that is chronic says he always has edema, legs actually less edematous currently Problem List Medical Problems: (1) Catheter (urine) change required Status: Acute (2) Cellulitis Status: Acute (3) Complication of catheter Status: Acute (4) History of sepsis Status: Acute (5) Lower extremity ulceration Status: Acute (6) Scrotal mass Status: Acute (7) Sepsis Status: Acute (8) Urinary retention Status: Acute Review of Systems Constitutional: + fatigue, + weakness Cardiac: + edema Neurologic: + balance problems, + weakness All Other Systems: Reviewed and Negative Medications Current Inpatient Medications Medications (Trade) Dose Ordered Sig/Gee Route Start Time Stop Time Status Last Admin Dose Admin Ioversol (Optiray 320) 100 ml UD PRN IV 09/22/16 08:30 09/26/16 08:29 Acetaminophen (Tylenol Tab) 650 mg Q4H PRN PO 09/22/16 11:45 10/22/16 11:44 Al Hydrox/Mg Hydrox/Simethicone (Maalox Max Susp) 15 ml Q4H PRN PO 09/22/16 11:45 10/22/16 11:44 Magnesium Hydroxide (Milk Of Magnesia Susp) 30 ml Q12H PRN PO 09/22/16 11:45 10/22/16 11:44 09/22/16 17:16 30 ML Ondansetron HCl (Zofran Inj) 4 mg Q6H PRN IV 09/22/16 11:45 10/22/16 11:44 Polyethylene (Miralax Powder Packet) 17 gm DAILY PRN PO 09/22/16 11:45 10/22/16 11:44 Baclofen (Lioresal Tab) 10 mg QID PO 09/22/16 17:00 10/22/16 16:59 09/25/16 12:55 10 MG Diltiazem HCl (TIAzac CAP) 240 mg DAILY PO 09/23/16 09:00 10/23/16 08:59 09/25/16 07:07 240 MG Docusate Sodium (coLACE CAP) 100 mg DAILY PO 09/23/16 09:00 10/23/16 08:59 09/25/16 07:08 100 MG Lisinopril (Zestril Tab) 40 mg DAILY PO 09/23/16 09:00 10/23/16 08:59 09/25/16 07:08 40 MG Metoprolol Tartrate (Lopressor Tab) 50 mg BID PO 09/22/16 21:00 10/22/16 20:59 09/25/16 07:07 50 MG Multivitamins (Multivitamin Tab) 1 tab DAILY PO 09/23/16 09:00 10/23/16 08:59 09/25/16 07:08 1 TAB Timolol Maleate (Timoptic 0.25% Oph Soln) 1 drops BID OP 09/22/16 21:00 10/22/16 20:59 09/25/16 07:08 1 DROPS Insulin Aspart SLIDING SCALE G... ACHS SC 09/22/16 16:00 10/22/16 15:59 09/25/16 11:40 4 UNITS Ceftriaxone Sodium 2000 mg/ Dextrose 70 ml @ 100 mls/hr Q24H IV 09/22/16 16:00 10/02/16 15:59 09/24/16 17:01 100 MLS/HR Fluconazole/ Sodium Chloride/ Prmx (Diflucan IV/ Premixed Nss) 50 ml @ 100 mls/hr Q24H IV 09/23/16 14:00 10/03/16 13:59 09/25/16 12:56 100 MLS/HR Nystatin (Mycostatin Powder) 1 appln QID EXT 09/22/16 17:00 10/22/16 16:59 09/25/16 12:56 1 APPLN Glucose (Glucose 40% Gel) 15-30 GRAMS 15 GRAMS... UD PRN PO 09/22/16 14:15 10/22/16 14:14 Glucose (Glucose Chew Tab) 4-8 Tablets 4 Tabl... UD PRN PO 09/22/16 14:15 10/22/16 14:14 Dextrose (Dextrose 50% 50ML Syringe) 25-50ML OF 50% DW IV FOR... UD PRN IV 09/22/16 14:15 10/22/16 14:14 Glucagon (Glucagon Inj) 1 mg UD PRN SQ 09/22/16 14:15 10/22/16 14:14 Vancomycin HCl 1 ea 1 ea UD PRN N/A 09/22/16 14:15 10/22/16 14:14 Vancomycin HCl/ Sodium Chloride (Vancomycin Inj/ Nss 250ml) 274 ml @ 125 mls/hr Q12H IV 09/23/16 02:00 10/06/16 01:59 09/25/16 14:07 125 MLS/HR Morphine Sulfate (MoRPHine SULFATE INJ) 1 mg Q3H PRN IV 09/22/16 15:00 10/06/16 14:59 Tramadol HCl (Ultram Tab) 50 mg Q4H PRN PO 09/22/16 15:00 10/22/16 14:59 Zolpidem Tartrate (Ambien Tab) 10 mg HS PRN PO 09/23/16 21:30 10/23/16 21:29 09/24/16 21:23 10 MG Objective Vital Signs Date Time Temp Pulse Resp B/P Pulse Ox O2 Delivery O2 Flow Rate FiO2 09/25/16 12:00 Room Air 09/25/16 11:54 36.9 88 20 155/92 93 Room Air 09/25/16 11:49 36.7 118 16 92 09/25/16 08:00 Room Air 09/25/16 07:41 36.7 118 16 159/104 92 Room Air 09/25/16 04:00 36.9 118 18 158/101 91 194/116 09/25/16 04:00 Room Air 09/25/16 03:20 98 148/54 94 Room Air 09/24/16 23:59 Room Air 09/24/16 23:59 36.5 81 18 150/75 92 09/24/16 20:00 Room Air 09/24/16 19:33 36.7 102 20 144/86 92 Room Air 09/24/16 16:00 71 18 174/84 93 09/24/16 16:00 Room Air Physical Exam General Appearance: WD/WN, no apparent distress Eyes: normal inspection, EOMI, sclerae normal ENT: normal ENT inspection, hearing grossly normal, pharynx normal Neck: supple, no adenopathy, no JVD, trachea midline Respiratory/Chest: chest non-tender, lungs clear, normal breath sounds, no respiratory distress, no accessory muscle use Cardiovascular: regular rate, rhythm, no gallop, no JVD, no murmur Abdomen: normal bowel sounds, non tender, soft, no organomegaly Extremities: non-tender, normal inspection, no calf tenderness, normal capillary refill, pelvis stable, + pedal edema Neurologic/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: 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, alert, normal mood/affect, oriented x 3, + motor weakness (generalized, cannot stand up) Skin: normal color, warm/dry, no rash Laboratory Results Last 24 Hours Test 09/24/16 16:35 09/24/16 20:05 09/25/16 06:32 09/25/16 06:47 Bedside Glucose 227 mg/dl 216 mg/dl 221 mg/dl White Blood Count 12.67 K/uL Red Blood Count 5.28 M/uL Hemoglobin 13.9 g/dL Hematocrit 42.8 % Mean Corpuscular Volume 81.1 fL Mean Corpuscular Hemoglobin 26.3 pg Mean Corpuscular Hemoglobin Concent 32.5 g/dl Platelet Count 296 K/uL Mean Platelet Volume 10.6 fL Neutrophils (%) (Auto) 75.5 % Lymphocytes (%) (Auto) 12.7 % Monocytes (%) (Auto) 7.2 % Eosinophils (%) (Auto) 4.0 % Basophils (%) (Auto) 0.4 % Neutrophils # (Auto) 9.56 K/uL Lymphocytes # (Auto) 1.61 K/uL Monocytes # (Auto) 0.91 K/uL Eosinophils # (Auto) 0.51 K/uL Basophils # (Auto) 0.05 K/uL RDW Standard Deviation 47.3 fL RDW Coefficient of Variation 16.0 % Immature Granulocyte % (Auto) 0.2 % Immature Granulocyte # (Auto) 0.03 K/uL Sodium Level 140 mmol/L Potassium Level 4.3 mmol/L Chloride Level 105 mmol/L Carbon Dioxide Level 26 mmol/L Anion Gap 9.0 mmol/L Blood Urea Nitrogen 12 mg/dl Creatinine 0.88 mg/dl Est Creatinine Clear Calc Drug Dose 97.2 ml/min Estimated GFR () 100.2 Estimated GFR (Non- 86.4 BUN/Creatinine Ratio 14.2 Random Glucose 230 mg/dl Calcium Level 8.9 mg/dl Phosphorus Level 3.0 mg/dl Magnesium Level 2.1 mg/dl Total Bilirubin 1.0 mg/dl Aspartate Amino Transf (AST/SGOT) 13 U/L Alanine Aminotransferase (ALT/SGPT) 27 U/L Alkaline Phosphatase 95 U/L Total Protein 7.5 gm/dl Albumin 2.9 gm/dl Globulin 4.6 gm/dl Albumin/Globulin Ratio 0.6 Test 09/25/16 10:52 09/25/16 13:40 Bedside Glucose 279 mg/dl Vancomycin Level Trough 12.3 mcg/ml Assessment and Plan Mr. Tran is a 71 y/o male with PMHx of Persistent Atrial Fibrillation, CKD Stage III, T2DM with Peripheral Neuropathy, HTN, Neurogenic Bladder, and Spinal Paraparesis who presents to the ED for painful and edematous right testicle x 5 days - Right scrotal abscess with cellulitis of scrotum: s/p I&d on 09/24, post op day #1 continue ceftriaxone IV and Vanco IV, will need 14 days antibiotics, plan for PO option prior to discharge wound culture pending, no growth on urine or blood cultures appreciate urology note hold Eliquis today, resume tomorrow - Intertrigo fungal infection: responding well to fluconazole and nystatin, treat for two weeks total - Atrial fibrillation, persistent: rates occasionally high on Diltiazem 240mg and metoprolol 50mg BID hold Eliquis until tomorrow - HTN: stable, Diltiazem, metoprolol and lisinopril - DM type II: resume glipizide and metformin on d/c, Novolog while inpatient transfer to medical, likely d/c tomorrow if culture provides us with proper antibiotic Continued [facility] stay due to: voiding difficulties, multiple IV medications needed, other
[2016-09-25] MEDS: CEFTRIAXONE SOD INJ 2,000 MG in DEXTROSE 5% 50ML 50 ML IV SCH (16:44)
[2016-09-25 17:13] VITALS: BP 162/96; PULSE 77; TEMP 36.6; O2SAT 92
[2016-09-25] MEDS: ZOLPIDEM TARTRATE 10 MG TAB PO PRN (21:36)
[2016-09-26] VITALS (9 sets, daily range): BP systolic 156–183; BP diastolic 74–127; PULSE 74–115; TEMP 36.4–36.8; O2SAT 90–94; Ht 177.8 cm; Wt 113.7 kg
[2016-09-26] MEDS ORDERED: HydrALAZINE HCL 20 MG/ML VIAL IV. STA (00:03)
[2016-09-26] MEDS ORDERED: HydrALAZINE HCL 20 MG/ML VIAL IV. PRN (00:15)
[2016-09-26] MEDS: VANCOMYCIN INJ 1,200 MG in SODIUM CHLORIDE 0.9% 250ML 250 ML IV SCH (01:34)
[2016-09-26] MEDS: DILTIAZEM HCL 120 MG EXT REL CAP PO SCH (06:50)
[2016-09-26] MEDS: METOPROLOL TARTRATE 50 MG TAB PO SCH (06:50)
[2016-09-26] MEDS: DOCUSATE SODIUM 100 MG CAP PO SCH (08:05)
[2016-09-26] MEDS: LISINOPRIL 40 MG TAB PO SCH (08:05)
[2016-09-26] MEDS: NYSTATIN POWDER 15GM BTL EXT SCH ×4 (08:05→20:00)
[2016-09-26] MEDS: MULTIVITAMIN TAB PO SCH (08:05)
[2016-09-26] MEDS: BACLOFEN 10 MG TAB PO SCH ×4 (08:06→21:07)
[2016-09-26] MEDS: TIMOLOL MALEATE 0.25% OP SOLN 5 ML BTL OP SCH ×2 (08:07→20:00)
[2016-09-26] MEDS: INSULIN ASPART 100 UNITS/ML 3 ML PEN SC SCH ×4 (08:12→20:56)
[2016-09-26] MEDS ORDERED: METF500T5 PO (08:22)
[2016-09-26] MEDS ORDERED: METOPROLOL TARTRATE 50 MG TAB PO ONE (08:30)
--- NOTE | 2016-09-26 09:29 | Progress Note ---
Subjective Date of Service: Sep 26, 2016. (Thea Fernandez CRNP) Subjective Pt evaluation today including: conversation w/ patient, chart review, lab review Voiding: pedraza catheter in place (patent, draining yellow urine with some fowler colored sediment) 71 yo male s/p I&D of scrotal abscess. Pt reports some anxiety this morning, but denies pain. Scrotal packing has been changed by the wound care nurse. Wound culture is preliminarily negative. (Thea Fernandez CRNP) Problem List Medical Problems: (1) Catheter (urine) change required Status: Acute (2) Cellulitis Status: Acute (3) Complication of catheter Status: Acute (4) History of sepsis Status: Acute (5) Lower extremity ulceration Status: Acute (6) Scrotal mass Status: Acute (7) Sepsis Status: Acute (8) Urinary retention Status: Acute (Thea Fernandez CRNP) Review of Systems Constitutional: No chills, No fever Respiratory: No shortness of breath Cardiac: No chest pain Abdomen: No nausea, No pain, No vomiting Heme: No abnormal bleeding/bruising (Thea Fernandez CRNP) Objective Vital Signs Date Time Temp Pulse Resp B/P Pulse Ox O2 Delivery O2 Flow Rate FiO2 09/26/16 07:42 36.4 100 16 182/74 92 Room Air 09/26/16 06:46 110 182/111 94 Room Air 09/26/16 04:46 36.8 115 24 171/83 93 Room Air 09/26/16 04:30 162/127 09/26/16 00:05 181/106 09/26/16 00:00 94 Nasal Cannula 2.0 09/26/16 00:00 36.4 75 19 183/126 90 Room Air 09/25/16 17:13 36.6 77 18 162/96 92 Room Air 09/25/16 16:00 Room Air 09/25/16 12:00 Room Air 09/25/16 11:54 36.9 88 20 155/92 93 Room Air 09/25/16 11:49 36.7 118 16 92 (Thea Fernandez CRNP) Physical Exam General Appearance: no apparent distress Eyes: normal inspection ENT: hearing grossly normal Neck: no JVD Respiratory/Chest: no respiratory distress, no accessory muscle use Cardiovascular: no JVD Abdomen: + pertinent finding (large umbilical hernia) Extremities: + swelling (BLE) Neurologic/Psychiatric: alert, normal mood/affect, oriented x 3 Skin: normal color Comments: edematous scrotum with wound packing in place, appears slightly improved compared to yesterday (Thea Fernandez CRNP) Laboratory Results Last 24 Hours Test 09/25/16 10:52 09/25/16 13:40 09/25/16 16:00 09/25/16 21:04 Bedside Glucose 279 mg/dl 252 mg/dl 350 mg/dl Vancomycin Level Trough 12.3 mcg/ml Test 09/25/16 21:06 09/26/16 08:00 09/26/16 08:02 Bedside Glucose 227 mg/dl 260 mg/dl (Thea Fernandez CRNP) Assessment and Plan POD #2 s/p I&D of scrotum, hematuria, urinary retention Wound culture preliminary negative. Would recommend transitioning the pt to an oral abx such as Bactrim DS or Keflex for 10-14 days of therapy prior to discharge home. Will consult the wound care nurse for wound packing changes. The pt will need daily wound packing until wound is healed. Arrange home health or wound clinic to do this as an outpatient. As for the pt's chronic retention and noted hematuria in pedraza catheter today, will send a urine cytology and arrange for outpatient cysto for further evaluation. He reports he has had a chronic pedraza catheter for 3 years as [facility] who he [facility] not follow up with. He reports failing medications in the past. Will check a PSA while inpatient. Will plan to f/u with him as an outpatient early next week. No further management at this time. Recall PRN issues. Thanks for allowing us to participate in this pt's care. Continued [facility] stay due to: multiple IV medications needed, other (Thea Fernandez CRNP)
[2016-09-26 09:41] LABS: BASO % 0.4 %; BASO ABS # 0.05 K/uL (0-0.2); COMPLETE YES; IG% 0.4 %; LYMPH % 10.1 %; LYMPH ABS # 1.28 K/uL (1.2-3.4); MEAN CELL VOLUME 81.5 fL (80-100); MEAN CORPUSCULAR HGB CONC 33.1 g/dl (32-36); MEAN PLATELET VOLUME 10.8 fL (7.4-10.4); NEUT % 76.1 %; PLATELET COUNT 376 K/uL (130-400); RED BLOOD COUNT 5.52 M/uL (4.7-6.1); WHITE BLOOD COUNT 12.69 K/uL (4.8-10.8)
[2016-09-26 10:35] LABS: CALCIUM 8.9 mg/dl (8.5-10.1); POTASSIUM 3.9 mmol/L (3.5-5.1)
[2016-09-26 10:52] LABS: BETA-HYDROXYBUTYRATE 8.6 mg/dL (0.2-2.81)
--- NOTE | 2016-09-26 11:19 | Progress Note ---
Subjective Date of Service: Sep 26, 2016. Subjective Pt evaluation today including: conversation w/ patient, physical exam, lab review, conversation w/ road consultant, review of inpatient medication list Pain: minimal pain PO Intake: adequate Voiding: pedraza catheter in place patient feeling better, WBC still high, wound needs packing changed discussed options to go home, needs home wound care urology recommending changing to PO antibiotics prior to discharge, change to Bactrim today will keep here, sugars high, try to d/c tomorrow Problem List Medical Problems: (1) Catheter (urine) change required Status: Acute (2) Cellulitis Status: Acute (3) Complication of catheter Status: Acute (4) History of sepsis Status: Acute (5) Lower extremity ulceration Status: Acute (6) Scrotal mass Status: Acute (7) Sepsis Status: Acute (8) Urinary retention Status: Acute Review of Systems Constitutional: + fatigue, + weakness All Other Systems: Reviewed and Negative Medications Current Inpatient Medications Medications (Trade) Dose Ordered Sig/Gee Route Start Time Stop Time Status Last Admin Dose Admin Acetaminophen (Tylenol Tab) 650 mg Q4H PRN PO 09/22/16 11:45 10/22/16 11:44 Al Hydrox/Mg Hydrox/Simethicone (Maalox Max Susp) 15 ml Q4H PRN PO 09/22/16 11:45 10/22/16 11:44 Magnesium Hydroxide (Milk Of Magnesia Susp) 30 ml Q12H PRN PO 09/22/16 11:45 10/22/16 11:44 09/22/16 17:16 30 ML Ondansetron HCl (Zofran Inj) 4 mg Q6H PRN IV 09/22/16 11:45 10/22/16 11:44 Polyethylene (Miralax Powder Packet) 17 gm DAILY PRN PO 09/22/16 11:45 10/22/16 11:44 Baclofen (Lioresal Tab) 10 mg QID PO 09/22/16 17:00 10/22/16 16:59 09/26/16 08:06 10 MG Diltiazem HCl (TIAzac CAP) 240 mg DAILY PO 09/23/16 09:00 10/23/16 08:59 09/26/16 06:50 240 MG Docusate Sodium (coLACE CAP) 100 mg DAILY PO 09/23/16 09:00 10/23/16 08:59 09/26/16 08:05 100 MG Lisinopril (Zestril Tab) 40 mg DAILY PO 09/23/16 09:00 10/23/16 08:59 09/26/16 08:05 40 MG Multivitamins (Multivitamin Tab) 1 tab DAILY PO 09/23/16 09:00 10/23/16 08:59 09/26/16 08:05 1 TAB Timolol Maleate (Timoptic 0.25% Oph Soln) 1 drops BID OP 09/22/16 21:00 10/22/16 20:59 09/26/16 08:07 1 DROPS Insulin Aspart SLIDING SCALE G... ACHS SC 09/22/16 16:00 10/22/16 15:59 09/26/16 08:12 3 UNITS Ceftriaxone Sodium 2000 mg/ Dextrose 70 ml @ 100 mls/hr Q24H IV 09/22/16 16:00 10/02/16 15:59 09/25/16 16:44 100 MLS/HR Fluconazole/ Sodium Chloride/ Prmx (Diflucan IV/ Premixed Nss) 50 ml @ 100 mls/hr Q24H IV 09/23/16 14:00 10/03/16 13:59 09/25/16 12:56 100 MLS/HR Nystatin (Mycostatin Powder) 1 appln QID EXT 09/22/16 17:00 10/22/16 16:59 09/26/16 08:05 1 APPLN Glucose (Glucose 40% Gel) 15-30 GRAMS 15 GRAMS... UD PRN PO 09/22/16 14:15 10/22/16 14:14 Glucose (Glucose Chew Tab) 4-8 Tablets 4 Tabl... UD PRN PO 09/22/16 14:15 10/22/16 14:14 Dextrose (Dextrose 50% 50ML Syringe) 25-50ML OF 50% DW IV FOR... UD PRN IV 09/22/16 14:15 10/22/16 14:14 Glucagon (Glucagon Inj) 1 mg UD PRN SQ 09/22/16 14:15 10/22/16 14:14 Vancomycin HCl 1 ea 1 ea UD PRN N/A 09/22/16 14:15 10/22/16 14:14 Vancomycin HCl/ Sodium Chloride (Vancomycin Inj/ Nss 250ml) 274 ml @ 125 mls/hr Q12H IV 09/23/16 02:00 10/06/16 01:59 09/26/16 01:34 125 MLS/HR Morphine Sulfate (MoRPHine SULFATE INJ) 1 mg Q3H PRN IV 09/22/16 15:00 10/06/16 14:59 Tramadol HCl (Ultram Tab) 50 mg Q4H PRN PO 09/22/16 15:00 10/22/16 14:59 Zolpidem Tartrate (Ambien Tab) 10 mg HS PRN PO 09/23/16 21:30 10/23/16 21:29 09/25/16 21:36 10 MG Hydralazine HCl (HydrALAZINE INJ) 10 mg Q4 PRN IV. 09/26/16 00:15 10/26/16 00:14 09/26/16 04:41 10 MG Metoprolol Tartrate (Lopressor Tab) 100 mg BID PO 09/26/16 20:00 10/26/16 19:59 Apixaban (Eliquis Tab) 5 mg BID PO 09/26/16 09:00 10/26/16 08:59 Glipizide (Glucotrol Tab) 10 mg BID@0630,1630 PO 09/26/16 11:30 10/26/16 11:29 Metformin HCl (Glucophage Extended Rel Tab) 500 mg BIDM PO 09/26/16 12:00 10/26/16 11:59 Objective Vital Signs Date Time Temp Pulse Resp B/P Pulse Ox O2 Delivery O2 Flow Rate FiO2 09/26/16 07:42 36.4 100 16 182/74 92 Room Air 09/26/16 06:46 110 182/111 94 Room Air 09/26/16 04:46 36.8 115 24 171/83 93 Room Air 09/26/16 04:30 162/127 09/26/16 00:05 181/106 09/26/16 00:00 94 Nasal Cannula 2.0 09/26/16 00:00 36.4 75 19 183/126 90 Room Air 09/25/16 17:13 36.6 77 18 162/96 92 Room Air 09/25/16 16:00 Room Air 09/25/16 12:00 Room Air 09/25/16 11:54 36.9 88 20 155/92 93 Room Air 09/25/16 11:49 36.7 118 16 92 Physical Exam General Appearance: WD/WN, no apparent distress Neck: supple, no adenopathy, no JVD, trachea midline Respiratory/Chest: chest non-tender, lungs clear, normal breath sounds, no respiratory distress, no accessory muscle use Cardiovascular: regular rate, rhythm, no edema, no gallop, no JVD, no murmur Abdomen: normal bowel sounds, non tender, soft, no organomegaly Extremities: normal range of motion, non-tender, normal inspection, no pedal edema, no calf tenderness Neurologic/Psychiatric: 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 as tested, no motor/sensory deficits, alert, normal mood/affect, oriented x 3 Skin: + pertinent finding (scrotum erythematous and swollen, wound packed, no drainage) Laboratory Results Last 24 Hours Test 09/25/16 13:40 09/25/16 16:00 09/25/16 21:06 09/26/16 08:00 Vancomycin Level Trough 12.3 mcg/ml Bedside Glucose 252 mg/dl 227 mg/dl 260 mg/dl Test 09/26/16 09:22 White Blood Count 12.69 K/uL Red Blood Count 5.52 M/uL Hemoglobin 14.9 g/dL Hematocrit 45.0 % Mean Corpuscular Volume 81.5 fL Mean Corpuscular Hemoglobin 27.0 pg Mean Corpuscular Hemoglobin Concent 33.1 g/dl Platelet Count 376 K/uL Mean Platelet Volume 10.8 fL Neutrophils (%) (Auto) 76.1 % Lymphocytes (%) (Auto) 10.1 % Monocytes (%) (Auto) 8.0 % Eosinophils (%) (Auto) 5.0 % Basophils (%) (Auto) 0.4 % Neutrophils # (Auto) 9.65 K/uL Lymphocytes # (Auto) 1.28 K/uL Monocytes # (Auto) 1.02 K/uL Eosinophils # (Auto) 0.64 K/uL Basophils # (Auto) 0.05 K/uL RDW Standard Deviation 48.2 fL RDW Coefficient of Variation 16.2 % Immature Granulocyte % (Auto) 0.4 % Immature Granulocyte # (Auto) 0.05 K/uL Sodium Level 140 mmol/L Potassium Level 3.9 mmol/L Chloride Level 104 mmol/L Carbon Dioxide Level 25 mmol/L Anion Gap 11.0 mmol/L Blood Urea Nitrogen 15 mg/dl Creatinine 1.00 mg/dl Est Creatinine Clear Calc Drug Dose 85.6 ml/min Estimated GFR () 87.4 Estimated GFR (Non- 75.4 BUN/Creatinine Ratio 15.0 Random Glucose 354 mg/dl Calcium Level 8.9 mg/dl Prostate Specific Antigen 0.697 ng/ml Beta-Hydroxybutyric Acid 8.60 mg/dL Assessment and Plan Mr. Tran is a 71 y/o male with PMHx of Persistent Atrial Fibrillation, CKD Stage III, T2DM with Peripheral Neuropathy, HTN, Neurogenic Bladder, and Spinal Paraparesis who presents to the ED for painful and edematous right testicle x 5 days - Right scrotal abscess with cellulitis of scrotum: s/p I&d on 09/24, post op day #2 stop ceftriaxone IV and Vanco IV today, change to Bactrim PO BID today, needs 14 days total wound culture no growth, no growth on urine or blood cultures appreciate urology note will see in office next week - Intertrigo fungal infection: improving, change to Fluconazole PO - Atrial fibrillation, persistent: rates occasionally high on Diltiazem 240mg and metoprolol 50mg BID BP high, will increase metoprolol to 100mg BID resume Eliquis today - HTN: uncontrolled, increase metoprolol to 100mg BID continue Diltiazem and Lisinopril - DM type II: hyperglycemia today, beta hydroxybuterate trending up, give Lantus 10 units now Novolog coverage, keep here today due to hyperglycemia resume Metformin and Glipizide today d/c tomorrow with home health Continued [facility] stay due to: multiple IV medications needed, other
[2016-09-26] MEDS ORDERED: SILVER NITR/POTASSIUM NITRATE APPLICATOR ONE (11:25)
[2016-09-26] MEDS ORDERED: LANTUS PER UNIT CHARGE SQ ONE ×2 (11:30→11:45)
[2016-09-26] MEDS: APIXABAN 2.5 MG TAB PO SCH ×2 (12:09→21:06)
[2016-09-26] MEDS: METFORMIN HCL 500 MG TABCR PO SCH ×2 (12:10→16:39)
[2016-09-26] MEDS: SULFAMETHOXAZOLE/TRIMETHOPRIM DS 800/160MG TAB PO SCH (21:05)
[2016-09-26] MEDS: METOPROLOL TARTRATE 100 MG TAB PO SCH (21:07)
[2016-09-26] MEDS: ZOLPIDEM TARTRATE 10 MG TAB PO PRN (21:08)
[2016-09-27] VITALS: O2SAT 94
[2016-09-27 07:20] VITALS: BP 172/81; PULSE 82; TEMP 36.6; O2SAT 91
[2016-09-27 07:29] LABS: BASO % 0.3 %; BASO ABS # 0.03 K/uL (0-0.2); COMPLETE YES; EOS % 5.3 %; HEMATOCRIT 44.8 % (42-52); IG% 0.3 %; LYMPH % 13.4 %; LYMPH ABS # 1.53 K/uL (1.2-3.4); MEAN CELL VOLUME 81.6 fL (80-100); MEAN CORPUSCULAR HEMOGLOBIN 26.8 pg (25-34); MEAN CORPUSCULAR HGB CONC 32.8 g/dl (32-36); MONO % 7.5 %; NEUT % 73.2 %; PLATELET COUNT 393 K/uL (130-400); RED BLOOD COUNT 5.49 M/uL (4.7-6.1); WHITE BLOOD COUNT 11.38 K/uL (4.8-10.8)
[2016-09-27 07:56] LABS: BUN/CREATININE RATIO 12.9 (10-20); CALCIUM 8.9 mg/dl (8.5-10.1); CREATININE 1.1 mg/dl (0.60-1.40); MAGNESIUM 2.3 mg/dl (1.8-2.4); POTASSIUM 3.9 mmol/L (3.5-5.1)
[2016-09-27] MEDS: DOCUSATE SODIUM 100 MG CAP PO SCH (08:00)
[2016-09-27] MEDS: NYSTATIN POWDER 15GM BTL EXT SCH ×2 (08:32→12:53)
[2016-09-27] MEDS: APIXABAN 2.5 MG TAB PO SCH (08:33)
[2016-09-27] MEDS: TIMOLOL MALEATE 0.25% OP SOLN 5 ML BTL OP SCH (08:33)
[2016-09-27] MEDS: METFORMIN HCL 500 MG TABCR PO SCH (08:33)
[2016-09-27] MEDS: BACLOFEN 10 MG TAB PO SCH ×2 (08:33→12:53)
[2016-09-27] MEDS: MULTIVITAMIN TAB PO SCH (08:33)
[2016-09-27] MEDS: METOPROLOL TARTRATE 100 MG TAB PO SCH (08:33)
[2016-09-27] MEDS: DILTIAZEM HCL 120 MG EXT REL CAP PO SCH (08:34)
[2016-09-27] MEDS: SULFAMETHOXAZOLE/TRIMETHOPRIM DS 800/160MG TAB PO SCH (08:34)
[2016-09-27] MEDS: LISINOPRIL 40 MG TAB PO SCH (08:34)
[2016-09-27] MEDS: INSULIN ASPART 100 UNITS/ML 3 ML PEN SC SCH ×2 (08:44→12:53)
[2016-09-27] MEDS ORDERED: ULT50X PO (12:39)
[2016-09-27] MEDS ORDERED: LPR100 PO (12:39)
[2016-09-27] MEDS ORDERED: DFL100 PO (12:39)
[2016-09-27] MEDS ORDERED: SULF-183 PO (12:39)
--- NOTE | 2016-09-27 12:48 | Discharge Instructions ---
Discharge Instructions Date of Service Sep 27, 2016. Admission Reason for Admission: Cellulitis, Scrotal Abscess Discharge Discharge Diagnosis / Problem: Cellulitis, scrotal abscess Discharge Goals Goal(s): Decrease discomfort, Improve function Activity Recommendations Activity Limitations: resume your previous activity Lifting Limitations: none Exercise/Sports Limitations: as tolerated Shower/Bathe: no limitations Driving or Machine Use: not while taking Ultram . Instructions / Follow-Up Instructions / Follow-Up Medications: - BACTRIM: take for 8 more days to treat UTI and cellulitis, abscess - DIFLUCAN: take for 4 more days to treat fungal skin infection - METOPROLOL: please note that dose increased to 100mg twice a day from 50mg twice a day due to high blood pressure and fast heart rate you can always double up on the 50mg tablets if you have plenty of those at home - ULTRAM: use as needed for pain associated with the abscess Wound care has been arranged for home nursing and then follow up with wound clinic next week FOLLOW UP - [facility] urology next week, call [phone] for appointment - Dr. Leung, call for appointment in next 2-3 weeks Current Hospital Diet Patient's current hospital diet: Diabetes Type 2 Diet Discharge Diet Recommended Diet: Diabetes Type 2 Diet Procedures Procedures Performed: Incision & Drainage Right Scrotal Abscess Pending Studies Studies pending at discharge: no Laboratory Results Hemoglobin A1c Test 09/23/16 05:20 Range/Units Estimated Average Glucose 206 mg/dl Hemoglobin A1c 8.8 H 4.5-5.6 % Medical Emergencies . Who to Call and When: Medical Emergencies: If at any time you feel your situation is an emergency, please call 911 immediately. . Non-Emergent Contact Non-Emergency issues call your: Primary Care Provider, Urologist Call Non-Emergent contact if: you have a fever, your pain is not controlled, you have any medication questions . . "Provider Documentation" section prepared by Kai Lutz. VTE Core Measure Inpt VTE Proph given/why not?: Other Anticoagulation (eliquis) [place] Drug Monitoring Program Search Results: no issues identified
[2016-09-27 12:56] VITALS: BP 172/81; PULSE 82; TEMP 36.6; O2SAT 91
--- NOTE | 2016-09-28 08:49 | Discharge Summary ---
Discharge Summary Date of Service Sep 27, 2016. Discharge Summary Admission Date: Sep 22, 2016 at 12:06 Discharge Date: Sep 27, 2016 Discharge Disposition: Home with services Principal Diagnosis: Cellulitis with scrotal abscess Problems/Secondary Diagnoses: Hypertension Hyperglycemia with DM type II, not DKA UTI secondary to chronic pedraza Procedures: Scrotal abscess I&D Consultations: Urology Medication Reconciliation New Medications: Fluconazole (Fluconazole) 100 Mg Tab 100 MG PO DAILY for 4 Days, #4 TAB 0 Refills Metoprolol Tartrate (Metoprolol Tartrate) 100 Mg Tab 100 MG PO BID, #60 TAB 3 Refills Sulfamethoxazole-Trimethoprim (Smz-Tmp Ds) 1 Tab Tab 1 TAB PO Q12 for 8 Days, #16 TAB 0 Refills Tramadol HCl (Tramadol HCl) 50 Mg Tab 50 MG PO Q4H PRN for Pain, #20 TAB 0 Refills Continued Medications: Apixaban (Eliquis) 5 Mg Tab 5 MG PO BID, TAB Aspirin (Aspirin Chewable) 81 Mg Chew 81 MG PO DAILY, TAB Baclofen (Lioresal) 10 Mg Tab 10 MG PO QID Brimonidine Tartrate (Brimonidine Tartrate) 0.2 % Freida 1 DROP OPB BID Diltiazem Hcl Ext Rel (Tiazac) 240 Mg Capcr 240 MG PO DAILY, CAP Docusate Sodium (Stool Softener) 100 Mg Cap 100 MG PO DAILY Glipizide (Glipizide) 10 Mg Tab 10 MG PO BID Latanoprost (Xalatan 0.005% Oph Freida) 0.005 % Freida 1 DROP OPB DAILY Lisinopril (Zestril) 40 Mg Tab 40 MG PO DAILY, TAB Metformin Hcl Er (Glucophage Er) 500 Mg Tab 1 TAB PO BID for 90 Days, #360 TAB 3 Refills Multiple Vitamins W/ Minerals (Preservision Areds) 1 Cap Cap 1 CAP PO BID Multivitamin (Multivitamin) Tab 1 TAB PO DAILY, TAB Timolol Maleate (Ophth) (Timoptic 0.25% Oph) 0.25 % Freida 1 DROP OP BID, BTL Discontinued Medications: Metoprolol Tartrate (Lopressor) (Lopressor) 50 Mg Tab 50 MG PO BID, TAB Discharge Exam Patient feeling well, no fever, no chills, scrotal pain controlled. BP better with increased metoprolol. Sugars better after one dose of Lantus and resuming PO medications. Patient feels like he is ready to go home. Review of Systems: Constitutional: + fatigue, + weakness, No chills, No fever, No problem reported, No sweats, No weight loss Eyes: No diplopia, No discharge, No eye pain, No problem reported, No redness, No worsening of vision ENT: No dental problems, No hearing loss, No nasal symptoms, No problem reported, No sore throat, No tinnitus, No trouble swallowing, No unusual epistaxis Respiratory: No cough, No dyspnea at rest, No dyspnea on exertion, No hemoptysis, No problem reported, No shortness of breath, No sputum, No wheezing Cardiovascular: No PND, No chest pain, No claudication, No edema, No orthopnea, No palpitations, No problem reported Abdomen: No GI bleeding, No constipation, No diarrhea, No nausea, No pain, No problem reported, No vomiting Musculoskeletal: No calf pain, No joint pain, No muscle pain, No problem reported, No swelling Genitourinary - Male: + problem reported (pedraza, scrotal swelling, mild pain from abscess) Neurologic: + weakness (profound lower extremity, in wheelchair), No balance problems, No memory loss, No numbness/tingling, No paralysis, No problem reported, No vertigo Psychiatric: No anhedonism, No anxiety, No depression symptoms, No insomnia , No problem reported, No substance abuse Endocrine: No excessive thirst, No excessive urination, No fatigue, No problem reported Hematologic / Lymphatic: No abnormal bleeding/bruising, No clotting problems , No night sweats, No problem reported, No swollen lymph nodes Integumentary: No bleeding, No color change, No itch, No new/changing skin lesions, No problem reported, No rash Physical Exam: General Appearance: WD/WN, no apparent distress Eyes: normal inspection, EOMI, sclerae normal ENT: normal ENT inspection, hearing grossly normal, pharynx normal Neck: supple, no adenopathy, no JVD, trachea midline Respiratory/Chest: chest non-tender, lungs clear, normal breath sounds, no respiratory distress, no accessory muscle use Cardiovascular: regular rate, rhythm, no edema, no gallop, no JVD, no murmur , normal peripheral pulses Abdomen / GI: normal bowel sounds, non tender, soft, no organomegaly Neurologic/Psychiatric: 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 Tran is a 71 y/o male with PMHx of Persistent Atrial Fibrillation, CKD Stage III, T2DM with Peripheral Neuropathy, HTN, Neurogenic Bladder, and Spinal Paraparesis who presents to the ED for painful and edematous right testicle x 5 days - Right scrotal abscess with cellulitis of scrotum: s/p I&d on 09/24, post op day #3 stopped ceftriaxone IV and Vanco IV on 09/26, changed to Bactrim PO BID, afebrile, WBC trending down d/c home on 8 more days of Bactrim for 14 days total therapy wound culture no growth, no growth on urine or blood cultures appreciate urology note will see in office next week - Intertrigo fungal infection: improving, change to Fluconazole PO and complete 4 more days - Atrial fibrillation, persistent: rates occasionally high on Diltiazem 240mg and metoprolol 50mg BID increased metoprolol to 100mg BID on 09/26 HR better and BP better controlled on 09/27 will continue metoprolol 100mg BID and Diltiazem 240mg daily continue Eliquis - HTN: better controlled with increasing metoprolol to 100mg BID continue Diltiazem and Lisinopril - DM type II: hyperglycemia on 09/26, beta hydroxybuterate was trending up, treated with Lantus 10 x 1 dose Novolog coverage, resumed Metformin and Glipizide on 09/26 sugars better controlled and at goal on 09/27 d/c to home with home nursing for wound care Total Time Spent: Greater than 30 minutes This includes examination of the patient, discharge planning, medication reconciliation, and communication with other providers. Discharge Instructions Please refer to the electronic Patient Visit Report (Discharge Instructions) for additional information. Follow-Up Wound clinic next week Urology next week PCP - Dr. Leung in 1-2 weeks Additional Copies To Thea Fernandez CRNP; Stella Leung M.D.; Jose Mendez,
[2016-11-13] MEDS ORDERED: AMOX1TAB43 PO (19:18)
[2017-04-13] MEDS ORDERED: APIX1TAB3 PO (08:51)
[2017-04-13] MEDS ORDERED: TIMO0.05 OP (08:51)
[2017-04-13] MEDS ORDERED: DILT-115 PO (13:33)
[2017-04-13] MEDS ORDERED: BACL10TA PO (13:33)
[2017-04-13] MEDS ORDERED: GLIP10TA10 PO (13:33)
[2017-04-13] MEDS ORDERED: MULT-506 PO (13:33)
[2017-04-13] MEDS ORDERED: MULTCAP33 PO (13:33)
[2017-04-13] MEDS ORDERED: LATA0.5S OPB (13:33)
[2017-04-13] MEDS ORDERED: LISI40TA PO (13:33)
[2017-04-13] MEDS ORDERED: BRIM0.2S18 OPB (13:33)
[2017-04-13] MEDS ORDERED: ASPCH81X PO (13:33)
[2017-04-13] MEDS ORDERED: POLY335019 PO (15:06)
[2017-04-13] MEDS ORDERED: METH-1305 PO (19:35)
== END 2016-09-27 14:41 | disposition home health service (06) | DRG 728 ==
LOC: ENRESERVTM → ENRESERVDT → C.EDB 07:49 → C.2T 12:06 → C.MED 09-25 11:00 → C.MS4W 09-26 05:11
PROVIDERS: ADMIT Internal Medicine; ATTEND Internal Medicine
PROC: 0V950ZX Drainage of Scrotum, Open Approach, Diagnostic (ICD-10-PCS; principal; 2016-09-24 11:24)
DX: N49.2 Inflammatory disorders of scrotum (principal); T83.511A Infection and inflammatory reaction due to indwelling urethral catheter, initial encounter; G82.20 Paraplegia, unspecified; L03.314 Cellulitis of groin; I48.1 Persistent atrial fibrillation; N18.3 Chronic kidney disease, stage 3 (moderate); N50.9 Disorder of male genital organs, unspecified; I12.9 Hypertensive chronic kidney disease with stage 1 through stage 4 chronic kidney disease, or unspecified chronic kidney disease; E11.21 Type 2 diabetes mellitus with diabetic nephropathy; E11.40 Type 2 diabetes mellitus with diabetic neuropathy, unspecified; E11.65 Type 2 diabetes mellitus with hyperglycemia; R33.9 Retention of urine, unspecified; Y84.6 Urinary catheterization as the cause of abnormal reaction of the patient, or of later complication, without mention of misadventure at the time of the procedure; L30.4 Erythema intertrigo

== ENCOUNTER 2016-11-12 20:16 | Inpatient (IN) | payer OTHER ==
[~2016-11-12] VITALS: Ht 180.3 cm; Wt 114.0 kg
[~2016-11-12 20:16] MED LIST changes: -CIPR-255 PO; -DABI150C PO; +DFL100 PO; -FRS/40 PO; -LATA0.009; +LPR100 PO; -METF-384 PO; +METF500T5 PO; -TIMO0.2528 OP; +ULT50X PO
[2016-11-12 21:55] LABS: MANUAL MICROSCOPIC REQUIRED? NO; REVIEW REQ? YES; URINE APPEARANCE CLOUDY (CLEAR); URINE BILIRUBIN NEG (NEG); URINE COLOR YELLOW; URINE EPITHELIAL CELL AUTO 0-5 /lpf (0-5); URINE NITRITE NEG (NEG); URINE PH 5.5 (4.5-7.5); URINE SPECIFIC GRAVITY 1.022 (1.000-1.030); UROBILINOGEN NEG (NEG)
[2016-11-12] MEDS ORDERED: CEFTRIAXONE SOD INJ 1 GM ADDVIAL IV STA (22:20)
[2016-11-12 22:44] LABS: BASO % 0.2 %; BASO ABS # 0.03 K/uL (0-0.2); COMPLETE YES; EOS % 0.8 %; HEMATOCRIT 50.5 % (42-52); IG% 0.2 %; LYMPH % 10.2 %; LYMPH ABS # 1.62 K/uL (1.2-3.4); MEAN CELL VOLUME 80.9 fL (80-100); MEAN CORPUSCULAR HEMOGLOBIN 26.6 pg (25-34); MEAN CORPUSCULAR HGB CONC 32.9 g/dl (32-36); MONO % 6.7 %; NEUT % 81.9 %; PLATELET COUNT 260 K/uL (130-400); RED BLOOD COUNT 6.24 M/uL (4.7-6.1); WHITE BLOOD COUNT 15.85 K/uL (4.8-10.8)
[2016-11-12] MEDS ORDERED: SODIUM CHLORIDE 0.9% 1000ML 1,000 ML IV STA ×2 (22:49→23:08)
[2016-11-12 23:04] LABS: BUN/CREATININE RATIO 23.3 (10-20); CREATININE 1.2 mg/dl (0.60-1.40); POTASSIUM 3.6 mmol/L (3.5-5.1)
[2016-11-12] MEDS ORDERED: DAPTOmycin IV 500 MG in SODIUM CHLORIDE 0.9% 50ML 50 ML IV STA (23:08)
[2016-11-12 23:10] LABS: CALCIUM 8.6 mg/dl (8.5-10.1)
[2016-11-13] VITALS (8 sets, daily range): BP systolic 122–169; BP diastolic 81–85; PULSE 78–109; TEMP 36.5–36.7; O2SAT 94–96; Ht 180.3 cm; Wt 114.0 kg
--- NOTE | 2016-11-13 00:04 | EMERGENCY ROOM VISIT NOTE ---
History Report prepared by Griselda: Delio King Under the Supervision of: Dr. Armand Vences M.D. First contact with patient: 20:43 Chief Complaint: CATHETER REPLACEMENT Stated Complaint: BLOCKED CATHETER,CONSTIPATION History of Present Illness The patient is a 71 year old male who presents to the Emergency Room with complaints of persistent urinary retention since 1300 today. The patient has a catheter in place chronically and was scheduled to have it changed tomorrow at the [facility]. The catheter started draining more slowly today and then stopped draining completely at 1300. The patient is feeling full. The patient has had an umbilical hernia which is not painful. The patient is on a blood thinner for a history of a-fib. He has a history of spastic spinal paraplegia, but the cause is unknown to him. Per son, the patient was recently hospitalized for scrotal and bladder infection. Patient denies LOC, headache, fevers, chills, diaphoresis, visual changes, neck pain, chest pain, breathing difficulties, nausea, vomiting, abdominal pain, back pain, melena, hematochezia, numbness, weakness, lymphadenopathy, rash, or other complaints. Source of History: patient, family Onset: 1300 today Position: other (urinary catheter) Quality: other (retention) Timing: other (persistent) Associated Symptoms: + urinary symptoms ("feels full") Review of Systems See HPI for pertinent positives and negatives. A total of ten systems were reviewed and were otherwise negative. Past Medical & Surgical Medical Problems: (1) Atrial fibrillation (2) Chronic Kidney Disease, Stage Iii (Moderate) (3) Diab Maliha Wo Compl, Type Ii Or Unspec Type, Not Uncntrld Surgical Problems: (1) History of throat surgery Family History No pertinent family history Social History Smoking Status: Never Smoker Alcohol Use: none Drug Use: none Marital Status: single Housing Status: lives alone Occupation Status: employed Current/Historical Medications Scheduled Apixaban (Eliquis), 5 MG PO BID Aspirin (Aspirin Chewable), 81 MG PO DAILY Baclofen (Lioresal), 10 MG PO QID Brimonidine Tartrate (Brimonidine Tartrate), 1 DROP OPB BID Diltiazem Hcl Ext Rel (Tiazac), 240 MG PO DAILY Docusate Sodium (Stool Softener), 100 MG PO DAILY Glipizide (Glipizide), 10 MG PO BID Latanoprost (Xalatan 0.005% Oph Freida), 1 DROP OPB DAILY Lisinopril (Zestril), 40 MG PO DAILY Metformin Hcl Er (Glucophage Er), 1 TAB PO BID Metoprolol Tartrate (Metoprolol Tartrate), 100 MG PO BID Multiple Vitamins W/ Minerals (Preservision Areds), 1 CAP PO BID Multivitamin (Multivitamin), 1 TAB PO DAILY Timolol Maleate (Ophth) (Timoptic 0.25% Oph), 1 DROP OP BID Allergies Coded Allergies: No Known Allergies (Unverified , 11/12/16) Physical Exam Vital Signs Date Time Temp Pulse Resp B/P Pulse Ox O2 Delivery O2 Flow Rate FiO2 11/12/16 23:52 91 20 93 Room Air 11/12/16 22:50 108 18 130/96 93 Room Air 11/12/16 22:04 106 20 138/108 92 Room Air 11/12/16 21:31 99 20 161/90 91 Room Air 11/12/16 20:19 36.8 110 18 188/114 92 Room Air Physical Exam GENERAL: Awake, alert, well-appearing, in no distress HENT: Normocephalic, atraumatic. Oropharynx unremarkable. EYES: Normal conjunctiva. Sclera non-icteric. NECK: Supple. No nuchal rigidity. FROM. No JVD. RESPIRATORY: Clear to auscultation. CARDIAC: Tachycardic rate and irregular rhythm. Extremities warm and well perfused. Pulses equal. ABDOMEN: Soft, non-distended. No tenderness to palpation. No rebound or guarding. Umbilical hernia present. RECTAL: Deferred. : Catheter in place. MUSCULOSKELETAL: Chest examination reveals no tenderness. The back is symmetrical on inspection without obvious abnormality. There is no CVA tenderness to palpation. No joint edema. LOWER EXTREMITIES: Calves are equal size bilaterally and non-tender. No edema. No discoloration. NEURO: Normal sensorium. No sensory or motor deficits noted. SKIN: No rash or jaundice noted. Medical Decision & Procedures Laboratory Results 11/12/16 22:30 Red Blood Count 6.24, Mean Corpuscular Volume 80.9, Mean Corpuscular Hemoglobin 26.6, Mean Corpuscular Hemoglobin Concent 32.9, Mean Platelet Volume 11.0, Neutrophils (%) (Auto) 81.9, Lymphocytes (%) (Auto) 10.2, Monocytes (%) (Auto) 6.7, Eosinophils (%) (Auto) 0.8, Basophils (%) (Auto) 0.2, Neutrophils # (Auto) 12.99, Lymphocytes # (Auto) 1.62, Monocytes # (Auto) 1.06, Eosinophils # (Auto) 0.12, Basophils # (Auto) 0.03 11/12/16 22:30 Test 11/12/16 21:20 11/12/16 22:30 11/12/16 22:42 Urine Color YELLOW Urine Appearance CLOUDY (CLEAR) Urine pH 5.5 (4.5-7.5) Urine Specific [place] 1.022 (1.000-1.030) Urine Protein 3+ (NEG) Urine Glucose (UA) 3+ (NEG) Urine Ketones NEG (NEG) Urine Occult Blood 3+ (NEG) Urine Nitrite NEG (NEG) Urine Bilirubin NEG (NEG) Urine Urobilinogen NEG (NEG) Urine Leukocyte Esterase SMALL (NEG) Urine WBC (Auto) >30 /hpf (0-5) Urine RBC (Auto) >30 /hpf (0-4) Urine Hyaline Casts (Auto) 1-5 /lpf (0-5) Urine Epithelial Cells (Auto) 0-5 /lpf (0-5) Urine Bacteria (Auto) NEG (NEG) Urine Yeast (Auto) PRESENT (NONE PRSENT) White Blood Count 15.85 K/uL (4.8-10.8) Red Blood Count 6.24 M/uL (4.7-6.1) Hemoglobin 16.6 g/dL (14.0-18.0) Hematocrit 50.5 % (42-52) Mean Corpuscular Volume 80.9 fL (80-100) Mean Corpuscular Hemoglobin 26.6 pg (25-34) Mean Corpuscular Hemoglobin Concent 32.9 g/dl (32-36) Platelet Count 260 K/uL (130-400) Mean Platelet Volume 11.0 fL (7.4-10.4) Neutrophils (%) (Auto) 81.9 % Lymphocytes (%) (Auto) 10.2 % Monocytes (%) (Auto) 6.7 % Eosinophils (%) (Auto) 0.8 % Basophils (%) (Auto) 0.2 % Neutrophils # (Auto) 12.99 K/uL (1.4-6.5) Lymphocytes # (Auto) 1.62 K/uL (1.2-3.4) Monocytes # (Auto) 1.06 K/uL (0.11-0.59) Eosinophils # (Auto) 0.12 K/uL (0-0.5) Basophils # (Auto) 0.03 K/uL (0-0.2) RDW Standard Deviation 46.7 fL (36.4-46.3) RDW Coefficient of Variation 15.6 % (11.5-14.5) Immature Granulocyte % (Auto) 0.2 % Immature Granulocyte # (Auto) 0.03 K/uL (0.00-0.02) Anion Gap 9.0 mmol/L (3-11) Est Creatinine Clear Calc Drug Dose 71.4 ml/min Estimated GFR () 70.1 Estimated GFR (Non- 60.5 BUN/Creatinine Ratio 23.3 (10-20) Calcium Level 8.6 mg/dl (8.5-10.1) Total Bilirubin 1.2 mg/dl (0.2-1) Direct Bilirubin 0.2 mg/dl (0-0.2) Aspartate Amino Transf (AST/SGOT) 24 U/L (15-37) Alanine Aminotransferase (ALT/SGPT) 46 U/L (12-78) Alkaline Phosphatase 113 U/L (45-117) Total Protein 7.5 gm/dl (6.4-8.2) Albumin 3.3 gm/dl (3.4-5.0) Bedside Lactic Acid Venous 1.65 mmol/L (0.90-1.70) Laboratory results reviewed by me Medications Administered Medications (Trade) Dose Ordered Sig/Gee Route Start Time Stop Time Status Last Admin Dose Admin Ceftriaxone Sodium 1 gm 1 gm NOW STAT IV 11/12/16 22:20 11/12/16 22:23 DC 11/12/16 22:49 1 GM Sodium Chloride 1,000 ml @ 999 mls/hr Q1H1M STAT IV 11/12/16 22:49 11/12/16 23:49 DC 11/12/16 22:54 999 MLS/HR Daptomycin 500 mg/ Sodium Chloride 60 ml @ 100 mls/hr NOW STAT IV 11/12/16 23:08 11/12/16 23:43 DC 11/12/16 23:43 100 MLS/HR Sodium Chloride (Nss 1000ml) 1,000 ml @ 200 mls/hr Q5H STAT IV 11/12/16 23:08 11/13/16 04:07 11/12/16 23:08 200 MLS/HR ED Course 2101: The patient was evaluated in room C10. A complete history and physical exam was performed. 2210: The patient feels better after 1400 CCs of urine was drained. 2220: Rocephin 1 gm IV. Medical Decision Triage Nursing notes reviewed. The patient's presentation and history were concerning for urinary issues secondary to catheter drainage problems. Etiologies such as catheter obstruction, dehydration, renal failure, urinary tract infection, sepsis, as well as others were entertained. Patient was initially evaluated and was doing well. He had some tachycardia noted but has a history of A. fib. He was a little bit uncomfortable given the urinary issues and some abdominal distention. The patient notes a long history of urinary problems. His catheter was changed and a urine sample was sent. This was concerning for infection. The patient felt more comfortable at was still tachycardic. Blood work was obtained at that point. His record was reviewed and was found that he has had multiple infections in the past. The resistance patterns were variable. Rocephin seem to be consistently acceptable for her choice. He was given this. One culture was done with his IV placement. His blood work then returned a white count of 15.8. He was still tachycardic. Fluids were ordered. A lactate was mildly elevated. This raises more concerns. A second culture was performed and his antibiotic coverage is also brought and with daptomycin. I discussed the need for further management in the hospital given this evolving scenario and the patient was in agreement. Consultation was made with internal medicine and the patient was evaluated. The chart was completed utilizing [employer] Speech voice recognition software. Grammatical errors, random word insertions, pronoun errors, and incomplete sentences are an occasional consequence of this system due to software limitations, ambient noise, and hardware issues. Any formal questions or concerns about the content, text, or information contained within the body of this dictation should be directly addressed to the physician for clarification. Impression Primary Impression: Urinary tract infection Additional Impression: Complication of catheter Scribe Attestation The scribe's documentation has been prepared under my direction and personally reviewed by me in its entirety. I confirm that the note above accurately reflects all work, treatment, procedures, and medical decision making performed by me. Departure Information Dispostion Being Evaluated By Hospitalist Stella Solis M.D. (PCP) Patient Instructions [facility] Problem Qualifiers
[2016-11-13] MEDS ORDERED: POTASSIUM CHLORIDE 10 MEQ TABCR PO STA (00:12)
[2016-11-13] MEDS ORDERED: GLUCAGON FOR INJ 1 MG VIAL SQ PRN (00:15)
[2016-11-13] MEDS ORDERED: GLUCOSE 40% GEL 15 GM TUBE PO PRN (00:15)
[2016-11-13] MEDS ORDERED: GLUCOSE 10 TABS/TUBE PO PRN (00:15)
[2016-11-13] MEDS ORDERED: DEXTROSE 50% 50 ML SYR IV PRN (00:15)
[2016-11-13] MEDS ORDERED: ACETAMINOPHEN 325 MG TAB PO PRN (00:15)
[2016-11-13] MEDS ORDERED: ONDANSETRON INJ 2 MG/ML 2 ML VIAL IV PRN (00:15)
[2016-11-13] MEDS ORDERED: TRAMADOL HCL 50 MG TAB PO PRN (00:15)
[2016-11-13] MEDS ORDERED: POTASSIUM CHLORIDE 10 MEQ TABCR ONE (00:27)
[2016-11-13] MEDS ORDERED: POLYETHYLENE (MIRALAX) 17 GM PACK PO PRN (00:30)
[2016-11-13] MEDS ORDERED: INSULIN GLARGINE SOLOSTAR 100 UNITS/ML 3 ML PEN SC ONE (01:30)
[2016-11-13] MEDS ORDERED: INSULIN ASPART 100 UNITS/ML 3 ML PEN SC ONE (01:30)
[2016-11-13] MEDS ORDERED: METOPROLOL TARTRATE 100 MG TAB PO ONE (01:30)
[2016-11-13] MEDS: CEFEPIME IV 2,000 MG in DEXTROSE 5% 100ML 100 ML IV SCH ×2 (01:54→13:41)
--- NOTE | 2016-11-13 03:46 | HISTORY & PHYSICAL EXAMINATION ---
DATE OF ADMISSION: 11/12/2016 PRIMARY CARE DOCTOR: Dr. Leung CHIEF COMPLAINT: catheter problems. HISTORY OF PRESENT ILLNESS: Hx obtained from px and records. Medical history is significant for hypertension, AFib on Eliquis. 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 Recent confinement last month for cellulitis with scrotal abscess sp ID. Coagulase negative staph on cultures. Patient completed outpatient course of Bactrim. Yesterday px's Coon catheter started draining more slowly later coming to a total stop, Bladder fullness noted. No chest pain, no shortness of breath. Some weakness. No cough symptoms. Denies chills. Px admits to some constipation. PX due for monthly Coon cath change at PCP's office this week. PX went to the Emergency Room because of a blocked catheter/urinary retention. Coon catheter changed in the ER. Px received Daptomycin and ceftriaxone for possible sepsis. MEDICAL HISTORY: As above. SURGERIES: He has had urologic procedures and some throat surgery. HOME MEDICATIONS: Include; Eliquis, brimonidine, baclofen, stool softener, Tiazac, glipizide, Xalatan, Zestril, Glucophage, PreserVision, multivitamins, Timoptic, Lopressor. ALLERGIES: No known drug allergies. FAMILY HISTORY: Diabetes. PERSONAL AND SOCIAL HISTORY: Past tobacco abuse. No chronic intake of alcoholic beverages. . 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 REVIEW OF SYSTEMS: As per HPI, all other ROS negative. PHYSICAL EXAMINATION: VITAL SIGNS: Blood pressure was noted to be 138/108, pulse rate 106, RR 20, temperature 36.7 and sats 92 on room air. GENERAL: Noted to be comfortable, obese, in no respiratory distress. SKIN: Normal color. HEENT: [place] palpebral conjunctivae. Dry mucosa. NECK: Short neck. LUNGS: Decreased breath sounds. HEART: Tachycardic. ABDOMEN: Soft. protuberant umbilical hernia, nontender. EXTREMITIES: Minimal LE edema, with a dressing on the right anterior flanagan. GENITOURINARY: Coon catheter in place. NEUROLOGIC: Decreased strength in the lower extremities. LABORATORIES: Hemoglobin was noted to be 16.6, white cell count 15 and platelets 260. Sodium 140, K3.8 chloride 102, CO2 29, BUN 20, creatinine 1.2 and glucose 298. Hemoglobin A1c from 09/2016 was noted to be 8.8. UA : WBC est, yeast noted, occult blood CXR as per my interpretation, atelectasis ASSESSMENT: 1. Sepsis 2 to complicated urinary tract infection history of neurogenic bladder secondary to spastic paraparesis px has a chronic indwelling Coon cath 2. hypertension, slightly elevated, 3. atrial fibrillation, rate slightly high, on Eliquis 4. DM2 on oral medications, suboptimal control as of recent HgA1c. PLAN: GMF Follow cultures. IV Cefepime. IVF Facilitate home beta buzz, CCB meds for rate control basal Lantus, ISS BG goal 140-180. Carb count coverage indicated for suboptimal blood sugar control. recheck HgA1c DVT prophylaxis, Eliquis. Full code. MTDD
[2016-11-13] MEDS: APIXABAN 2.5 MG TAB PO SCH ×2 (05:18→08:39)
[2016-11-13 06:39] LABS: CREATININE 1.1 mg/dl (0.60-1.40)
--- NOTE | 2016-11-13 06:58 | DIAGNOSTIC IMAGING REPORT ---
CHEST ONE VIEW PORTABLE CLINICAL HISTORY: Weakness. COMPARISON STUDY: Chest radiograph September 23, 2016. FINDINGS: Lung volumes are normal. There is no pneumothorax. Cardiomediastinal silhouette is stable. There is no evidence of pulmonary edema. Minimal bibasilar opacities favor atelectasis. There may be a trace left pleural effusion. IMPRESSION: 1. Trace left pleural effusion and bibasilar atelectasis. 2. No evidence of pulmonary edema. Electronically signed by: Redd Fan M.D. 11/13/2016 6:57 AM Dictated Date/Time: 11/13/2016 6:55 AM
[2016-11-13] MEDS: INSULIN ASPART 100 UNITS/ML 3 ML PEN SC SCH ×3 (08:32→17:47)
[2016-11-13] MEDS: BACLOFEN 10 MG TAB PO SCH ×3 (08:37→16:41)
[2016-11-13] MEDS ORDERED: LACTATED RINGER'S 1000ML 1,000 ML IV ONE (08:45)
[2016-11-13] MEDS ORDERED: INSULIN GLARGINE SOLOSTAR 100 UNITS/ML 3 ML PEN SC SCH (09:00)
[2016-11-13] MEDS ORDERED: METOPROLOL TARTRATE 100 MG TAB PO SCH (09:00)
[2016-11-13] MEDS ORDERED: MULTIVITAMIN TAB PO SCH (09:00)
[2016-11-13] MEDS ORDERED: BRIMONIDINE TARTRATE 0.2% 5ML OPB SCH (09:00)
[2016-11-13] MEDS ORDERED: CEFEPIME CONSULT ACTIVE PRN ×2 (09:00)
[2016-11-13] MEDS ORDERED: DILTIAZEM HCL 120 MG EXT REL CAP PO SCH (09:00)
[2016-11-13] MEDS ORDERED: DOCUSATE SODIUM/SENNA 50/8.6MG TAB PO SCH (09:00)
[2016-11-13] MEDS ORDERED: LISINOPRIL 40 MG TAB PO SCH (09:00)
[2016-11-13] MEDS ORDERED: TIMOLOL MALEATE 0.25% OP SOLN 5 ML BTL OP SCH (09:00)
--- NOTE | 2016-11-13 18:53 | Progress Note ---
Internal Med Progress Note Date of Service: November 13, 2016. 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 ASSESSMENT & PLAN: UTI/ DUE TO CHRONIC INDWELLING CATHETER has chronic neurogenic bladder with indwelling catheter gets catheter changed periodically by Home health nursing presented with Leukocytosis WBC 15 K grossly + ve UA urine culture -enterococcus pt was initially started on IV Cefepime will be changed to PO Amoxicillin for total 7 days clinically feels much better, normal appetite, energy no fever or chills stable to be discharged home with oral antibiotics will need to have repeat lab work ; CBC check in Sunday11/17/16 to assess resolution of leukocytosis with antibiotic treatment Medicine follow up with Dr Leung at [facility] in a week HTN BP stable cont out pt meds AFIB: on Cardizem Chronic anticoagulation with Eliquis TYPE 2 DM : was on Insulin ssi while in pt resume oral agents on discharge DVT PROPHYLAXIS Eliquis DISPOSITION stable to be discharged home today already [facility] Medicine follow up with [facility] Vital Signs: Date Time Temp Pulse Resp B/P Pulse Ox O2 Delivery O2 Flow Rate FiO2 11/13/16 16:20 Room Air 11/13/16 15:55 36.5 83 16 148/83 96 Room Air 11/13/16 12:16 78 16 122/84 11/13/16 10:00 98 11/13/16 08:00 Room Air 11/13/16 07:53 36.6 109 20 131/81 94 11/13/16 01:48 36.7 94 18 169/85 11/13/16 01:23 Room Air 11/13/16 00:56 99 20 160/82 94 11/12/16 23:52 91 20 93 Room Air 11/12/16 22:50 108 18 130/96 93 Room Air 11/12/16 22:04 106 20 138/108 92 Room Air 11/12/16 21:31 99 20 161/90 91 Room Air 11/12/16 20:19 36.8 110 18 188/114 92 Room Air Lab Results: Results Past 24 Hours Test 11/12/16 21:20 11/12/16 22:30 11/12/16 22:42 11/13/16 01:42 Range/Units Urine Color YELLOW Urine Appearance CLOUDY CLEAR Urine pH 5.5 4.5-7.5 Urine Specific [place] 1.022 1.000-1.030 Urine Protein 3+ NEG Urine Glucose (UA) 3+ NEG Urine Ketones NEG NEG Urine Occult Blood 3+ NEG Urine Nitrite NEG NEG Urine Bilirubin NEG NEG Urine Urobilinogen NEG NEG Urine Leukocyte Esterase SMALL NEG Urine WBC (Auto) >30 0-5 /hpf Urine RBC (Auto) >30 0-4 /hpf Urine Hyaline Casts (Auto) 1-5 0-5 /lpf Urine Epithelial Cells (Auto) 0-5 0-5 /lpf Urine Bacteria (Auto) NEG NEG Urine Yeast (Auto) PRESENT NONE PRSENT White Blood Count 15.85 4.8-10.8 K/uL Red Blood Count 6.24 4.7-6.1 M/uL Hemoglobin 16.6 14.0-18.0 g/dL Hematocrit 50.5 42-52 % Mean Corpuscular Volume 80.9 80-100 fL Mean Corpuscular Hemoglobin 26.6 25-34 pg Mean Corpuscular Hemoglobin Concent 32.9 32-36 g/dl Platelet Count 260 130-400 K/uL Mean Platelet Volume 11.0 7.4-10.4 fL Neutrophils (%) (Auto) 81.9 % Lymphocytes (%) (Auto) 10.2 % Monocytes (%) (Auto) 6.7 % Eosinophils (%) (Auto) 0.8 % Basophils (%) (Auto) 0.2 % Neutrophils # (Auto) 12.99 1.4-6.5 K/uL Lymphocytes # (Auto) 1.62 1.2-3.4 K/uL Monocytes # (Auto) 1.06 0.11-0.59 K/uL Eosinophils # (Auto) 0.12 0-0.5 K/uL Basophils # (Auto) 0.03 0-0.2 K/uL RDW Standard Deviation 46.7 36.4-46.3 fL RDW Coefficient of Variation 15.6 11.5-14.5 % Immature Granulocyte % (Auto) 0.2 % Immature Granulocyte # (Auto) 0.03 0.00-0.02 K/uL Sodium Level 140 136-145 mmol/L Potassium Level 3.6 3.5-5.1 mmol/L Chloride Level 102 98-107 mmol/L Carbon Dioxide Level 29 21-32 mmol/L Anion Gap 9.0 3-11 mmol/L Blood Urea Nitrogen 28 7-18 mg/dl Creatinine 1.20 0.60-1.40 mg/dl Est Creatinine Clear Calc Drug Dose 71.4 ml/min Estimated GFR () 70.1 Estimated GFR (Non- 60.5 BUN/Creatinine Ratio 23.3 10-20 Random Glucose 298 70-99 mg/dl Calcium Level 8.6 8.5-10.1 mg/dl Total Bilirubin 1.2 0.2-1 mg/dl Direct Bilirubin 0.2 0-0.2 mg/dl Aspartate Amino Transf (AST/SGOT) 24 15-37 U/L Alanine Aminotransferase (ALT/SGPT) 46 12-78 U/L Alkaline Phosphatase 113 45-117 U/L Total Protein 7.5 6.4-8.2 gm/dl Albumin 3.3 3.4-5.0 gm/dl Bedside Lactic Acid Venous 1.65 0.90-1.70 mmol/L Bedside Glucose 278 70-99 mg/dl Test 11/13/16 05:59 11/13/16 07:06 11/13/16 11:16 11/13/16 16:40 Range/Units Creatinine 1.10 0.60-1.40 mg/dl Est Creatinine Clear Calc Drug Dose 79.1 ml/min Estimated GFR () 77.9 Estimated GFR (Non- 67.2 Bedside Glucose 222 232 185 70-99 mg/dl Microbiology Results 11/12/16 Blood Culture, Received Pending 11/12/16 Blood Culture, Received Pending 11/12/16 Urine Culture - Preliminary, Resulted Enterococcus Species
--- NOTE | 2016-11-13 18:58 | Progress Note ---
Internal Med Progress Note Date of Service: November 13, 2016. Provider Documentation: SUBJECTIVE: [] OBJECTIVE: Vital Signs-as noted below Exam: General-[] Eyes-[] ENT-[] Neck-[] Lungs-[] Heart-[] Abdomen-[] Extremities-[] Neuro-[] Lab data as noted below. ASSESSMENT & PLAN: [] DVT PROPHYLAXIS [] DISPOSITION [] Vital Signs: Date Time Temp Pulse Resp B/P Pulse Ox O2 Delivery O2 Flow Rate FiO2 11/13/16 16:20 Room Air 11/13/16 15:55 36.5 83 16 148/83 96 Room Air 11/13/16 12:16 78 16 122/84 11/13/16 10:00 98 11/13/16 08:00 Room Air 11/13/16 07:53 36.6 109 20 131/81 94 11/13/16 01:48 36.7 94 18 169/85 11/13/16 01:23 Room Air 11/13/16 00:56 99 20 160/82 94 11/12/16 23:52 91 20 93 Room Air 11/12/16 22:50 108 18 130/96 93 Room Air 11/12/16 22:04 106 20 138/108 92 Room Air 11/12/16 21:31 99 20 161/90 91 Room Air 11/12/16 20:19 36.8 110 18 188/114 92 Room Air Lab Results: Results Past 24 Hours Test 11/12/16 21:20 11/12/16 22:30 11/12/16 22:42 11/13/16 01:42 Range/Units Urine Color YELLOW Urine Appearance CLOUDY CLEAR Urine pH 5.5 4.5-7.5 Urine Specific [place] 1.022 1.000-1.030 Urine Protein 3+ NEG Urine Glucose (UA) 3+ NEG Urine Ketones NEG NEG Urine Occult Blood 3+ NEG Urine Nitrite NEG NEG Urine Bilirubin NEG NEG Urine Urobilinogen NEG NEG Urine Leukocyte Esterase SMALL NEG Urine WBC (Auto) >30 0-5 /hpf Urine RBC (Auto) >30 0-4 /hpf Urine Hyaline Casts (Auto) 1-5 0-5 /lpf Urine Epithelial Cells (Auto) 0-5 0-5 /lpf Urine Bacteria (Auto) NEG NEG Urine Yeast (Auto) PRESENT NONE PRSENT White Blood Count 15.85 4.8-10.8 K/uL Red Blood Count 6.24 4.7-6.1 M/uL Hemoglobin 16.6 14.0-18.0 g/dL Hematocrit 50.5 42-52 % Mean Corpuscular Volume 80.9 80-100 fL Mean Corpuscular Hemoglobin 26.6 25-34 pg Mean Corpuscular Hemoglobin Concent 32.9 32-36 g/dl Platelet Count 260 130-400 K/uL Mean Platelet Volume 11.0 7.4-10.4 fL Neutrophils (%) (Auto) 81.9 % Lymphocytes (%) (Auto) 10.2 % Monocytes (%) (Auto) 6.7 % Eosinophils (%) (Auto) 0.8 % Basophils (%) (Auto) 0.2 % Neutrophils # (Auto) 12.99 1.4-6.5 K/uL Lymphocytes # (Auto) 1.62 1.2-3.4 K/uL Monocytes # (Auto) 1.06 0.11-0.59 K/uL Eosinophils # (Auto) 0.12 0-0.5 K/uL Basophils # (Auto) 0.03 0-0.2 K/uL RDW Standard Deviation 46.7 36.4-46.3 fL RDW Coefficient of Variation 15.6 11.5-14.5 % Immature Granulocyte % (Auto) 0.2 % Immature Granulocyte # (Auto) 0.03 0.00-0.02 K/uL Sodium Level 140 136-145 mmol/L Potassium Level 3.6 3.5-5.1 mmol/L Chloride Level 102 98-107 mmol/L Carbon Dioxide Level 29 21-32 mmol/L Anion Gap 9.0 3-11 mmol/L Blood Urea Nitrogen 28 7-18 mg/dl Creatinine 1.20 0.60-1.40 mg/dl Est Creatinine Clear Calc Drug Dose 71.4 ml/min Estimated GFR () 70.1 Estimated GFR (Non- 60.5 BUN/Creatinine Ratio 23.3 10-20 Random Glucose 298 70-99 mg/dl Calcium Level 8.6 8.5-10.1 mg/dl Total Bilirubin 1.2 0.2-1 mg/dl Direct Bilirubin 0.2 0-0.2 mg/dl Aspartate Amino Transf (AST/SGOT) 24 15-37 U/L Alanine Aminotransferase (ALT/SGPT) 46 12-78 U/L Alkaline Phosphatase 113 45-117 U/L Total Protein 7.5 6.4-8.2 gm/dl Albumin 3.3 3.4-5.0 gm/dl Bedside Lactic Acid Venous 1.65 0.90-1.70 mmol/L Bedside Glucose 278 70-99 mg/dl Test 11/13/16 05:59 11/13/16 07:06 11/13/16 11:16 11/13/16 16:40 Range/Units Creatinine 1.10 0.60-1.40 mg/dl Est Creatinine Clear Calc Drug Dose 79.1 ml/min Estimated GFR () 77.9 Estimated GFR (Non- 67.2 Bedside Glucose 222 232 185 70-99 mg/dl Microbiology Results 11/12/16 Blood Culture, Received Pending 11/12/16 Blood Culture, Received Pending 11/12/16 Urine Culture - Preliminary, Resulted Enterococcus Species
[2016-11-13] MEDS ORDERED: AMOXICILLIN/CLAVULANATE TAB 875 MG TAB PO SCH (19:00)
[2016-11-13] MEDS ORDERED: AMOX1TAB43 PO (19:18)
--- NOTE | 2016-11-13 19:20 | Discharge Instructions ---
Discharge Instructions Date of Service November 13, 2016. Admission Reason for Admission: Sepsis Discharge Discharge Diagnosis / Problem: URINARY TRACT INFECTION /CHRONIC INDWELLING CATHETER Discharge Goals Goal(s): Improve disease control, Therapeutic intervention Activity Recommendations Activity Limitations: resume your previous activity . Instructions / Follow-Up Instructions / Follow-Up HOSPITAL FOLLOW UP WITH DR MONSALVE IN A WEEK , PLEASE CALL OFFICE TO SCHEDULE APPOINTMENT Current Hospital Diet Patient's current hospital diet: Diabetes Type 2 Diet, AHA Diet (Heart Healthy) Discharge Diet Recommended Diet: AHA Diet (Heart Healthy), Diabetes Type 2 Diet Pending Studies Studies pending at discharge: yes List of pending studies: COMPLETE BLOOD COUNT ON Sunday11/17/16 Laboratory Results Hemoglobin A1c Test 09/23/16 05:20 Range/Units Estimated Average Glucose 206 mg/dl Hemoglobin A1c 8.8 H 4.5-5.6 % Medical Emergencies . Who to Call and When: Medical Emergencies: If at any time you feel your situation is an emergency, please call 911 immediately. . Non-Emergent Contact Non-Emergency issues call your: Primary Care Provider . . "Provider Documentation" section prepared by Concha Ching. . VTE Core Measure Inpt VTE Proph given/why not?: Other Anticoagulation (ELIQUIS )
--- NOTE | 2016-11-13 19:31 | Discharge Summary ---
Discharge Summary Date of Service November 13, 2016. Discharge Summary Admission Date: November 12, 2016 at 23:49 Discharge Date: November 13, 2016 Discharge Disposition: Home with services Principal Diagnosis: URINARY TRACT INFECTION /CHRONIC INDWELLING CATHETER Pending Studies/Follow-Up: List of pending studies: COMPLETE BLOOD COUNT ON Sunday11/17/16 Medication Reconciliation New Medications: Amoxicillin & Pot Clavulanate (Amoxicillin/Clavulanate P) 1 Tab Tab 875 MG PO BIDM for 7 Days, #14 TAB Continued Medications: Apixaban (Eliquis) 5 Mg Tab 5 MG PO BID, TAB Aspirin (Aspirin Chewable) 81 Mg Chew 81 MG PO DAILY, TAB Baclofen (Lioresal) 10 Mg Tab 10 MG PO QID Brimonidine Tartrate (Brimonidine Tartrate) 0.2 % Freida 1 DROP OPB BID Diltiazem Hcl Ext Rel (Tiazac) 240 Mg Capcr 240 MG PO DAILY, CAP Docusate Sodium (Stool Softener) 100 Mg Cap 100 MG PO DAILY Glipizide (Glipizide) 10 Mg Tab 10 MG PO BID Latanoprost (Xalatan 0.005% Oph Freida) 0.005 % Freida 1 DROP OPB DAILY Lisinopril (Zestril) 40 Mg Tab 40 MG PO DAILY, TAB Metformin Hcl Er (Glucophage Er) 500 Mg Tab 1 TAB PO BID for 90 Days, #360 TAB 3 Refills Metoprolol Tartrate (Metoprolol Tartrate) 100 Mg Tab 100 MG PO BID, #60 TAB 3 Refills Multiple Vitamins W/ Minerals (Preservision Areds) 1 Cap Cap 1 CAP PO BID Multivitamin (Multivitamin) Tab 1 TAB PO DAILY, TAB Timolol Maleate (Ophth) (Timoptic 0.25% Oph) 0.25 % Freida 1 DROP OP BID, BTL Referrals At Discharge Follow up Referrals: Physician Referral - Within 1 Week with Stella Monsalve M.D. Admission Information HPI (per Admitting provider): DATE OF ADMISSION: 11/12/2016 PRIMARY CARE DOCTOR: Dr. Monsalve CHIEF COMPLAINT: catheter problems. HISTORY OF PRESENT ILLNESS: Hx obtained from px and records. Medical history is significant for hypertension, AFib on Eliquis. 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 Recent confinement last month for cellulitis with scrotal abscess sp ID. Coagulase negative staph on cultures. Patient completed outpatient course of Bactrim. Yesterday px's Coon catheter started draining more slowly later coming to a total stop, Bladder fullness noted. No chest pain, no shortness of breath. Some weakness. No cough symptoms. Denies chills. Px admits to some constipation. PX due for monthly Coon cath change at PCP's office this week. PX went to the Emergency Room because of a blocked catheter/urinary retention. Coon catheter changed in the ER. Px received Daptomycin and ceftriaxone for possible sepsis. MEDICAL HISTORY: As above. SURGERIES: He has had urologic procedures and some throat surgery. HOME MEDICATIONS: Include; Eliquis, brimonidine, baclofen, stool softener, Tiazac, glipizide, Xalatan, Zestril, Glucophage, PreserVision, multivitamins, Timoptic, Lopressor. ALLERGIES: No known drug allergies. FAMILY HISTORY: Diabetes. PERSONAL AND SOCIAL HISTORY: Past tobacco abuse. No chronic intake of alcoholic beverages. . 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 REVIEW OF SYSTEMS: As per HPI, all other ROS negative. Physical Exam (per Admitting): PHYSICAL EXAMINATION: VITAL SIGNS: Blood pressure was noted to be 138/108, pulse rate 106, RR 20, temperature 36.7 and sats 92 on room air. GENERAL: Noted to be comfortable, obese, in no respiratory distress. SKIN: Normal color. HEENT: [place] palpebral conjunctivae. Dry mucosa. NECK: Short neck. LUNGS: Decreased breath sounds. HEART: Tachycardic. ABDOMEN: Soft. protuberant umbilical hernia, nontender. EXTREMITIES: Minimal LE edema, with a dressing on the right anterior flanagan. GENITOURINARY: Coon catheter in place. NEUROLOGIC: Decreased strength in the lower extremities. Hospital Course UTI/ DUE TO CHRONIC INDWELLING CATHETER has chronic neurogenic bladder with indwelling catheter gets catheter changed periodically by Home health nursing presented with Leukocytosis WBC 15 K grossly + ve UA urine culture -enterococcus pt was initially started on IV Cefepime will be changed to PO Amoxicillin for total 7 days clinically feels much better, normal appetite, energy no fever or chills stable to be discharged home with oral antibiotics will need to have repeat lab work ; CBC check in Sunday11/17/16 to assess resolution of leukocytosis with antibiotic treatment Medicine follow up with Dr Monsalve at [facility] in a week HTN BP stable cont out pt meds AFIB: on Cardizem Chronic anticoagulation with Eliquis TYPE 2 DM : was on Insulin ssi while in pt resume oral agents on discharge DVT PROPHYLAXIS Eliquis DISPOSITION stable to be discharged home today already has home health through [facility] Medicine follow up with [facility] Total time spent on discharge = 35 mins This includes examination of the patient, discharge planning, medication reconciliation, and communication with other providers. Discharge Instructions Discharge Instructions Date of Service November 13, 2016. Admission Reason for Admission: Sepsis Discharge Discharge Diagnosis / Problem: URINARY TRACT INFECTION /CHRONIC INDWELLING CATHETER Discharge Goals Goal(s): Improve disease control, Therapeutic intervention Activity Recommendations Activity Limitations: resume your previous activity . Instructions / Follow-Up Instructions / Follow-Up HOSPITAL FOLLOW UP WITH DR MONSALVE IN A WEEK , PLEASE CALL OFFICE TO SCHEDULE APPOINTMENT Current Hospital Diet Patient's current hospital diet: Diabetes Type 2 Diet, AHA Diet (Heart Healthy) Discharge Diet Recommended Diet: AHA Diet (Heart Healthy), Diabetes Type 2 Diet Pending Studies Studies pending at discharge: yes List of pending studies: COMPLETE BLOOD COUNT ON Sunday11/17/16 Laboratory Results Hemoglobin A1c Test 09/23/16 05:20 Range/Units Estimated Average Glucose 206 mg/dl Hemoglobin A1c 8.8 H 4.5-5.6 % Medical Emergencies . Who to Call and When: Medical Emergencies: If at any time you feel your situation is an emergency, please call 911 immediately. . Non-Emergent Contact Non-Emergency issues call your: Primary Care Provider . . "Provider Documentation" section prepared by Concha Ching. . VTE Core Measure Inpt VTE Proph given/why not?: Other Anticoagulation (ELIQUIS ) Additional Copies To Stella Monsalve M.D.
[2017-04-13] MEDS ORDERED: TIMO0.05 OP (08:51)
[2017-04-13] MEDS ORDERED: APIX1TAB3 PO (08:51)
[2017-04-13] MEDS ORDERED: MULT-506 PO (13:33)
[2017-04-13] MEDS ORDERED: LATA0.5S OPB (13:33)
[2017-04-13] MEDS ORDERED: DILT-115 PO (13:33)
[2017-04-13] MEDS ORDERED: BACL10TA PO (13:33)
[2017-04-13] MEDS ORDERED: GLIP10TA10 PO (13:33)
[2017-04-13] MEDS ORDERED: BRIM0.2S18 OPB (13:33)
[2017-04-13] MEDS ORDERED: MULTCAP33 PO (13:33)
[2017-04-13] MEDS ORDERED: ASPCH81X PO (13:33)
[2017-04-13] MEDS ORDERED: LISI40TA PO (13:33)
[2017-04-13] MEDS ORDERED: POLY335019 PO (15:06)
[2017-04-13] MEDS ORDERED: METH-1305 PO (19:35)
== END 2016-11-13 20:05 | disposition home health service (06) | DRG 698 ==
LOC: ENRESERVTM → ENRESERVDT → C.EDB 20:17 → C.MS2W 23:49
PROVIDERS: ADMIT Internal Medicine; ATTEND Hospitalist
PROC: 0T2BX0Z Change Drainage Device in Bladder, External Approach (ICD-10-PCS; principal; 2016-11-12)
DX: T83.518A Infection and inflammatory reaction due to other urinary catheter, initial encounter (principal); A41.9 Sepsis, unspecified organism; N39.0 Urinary tract infection, site not specified; B95.2 Enterococcus as the cause of diseases classified elsewhere; I48.91 Unspecified atrial fibrillation; N18.3 Chronic kidney disease, stage 3 (moderate); E11.9 Type 2 diabetes mellitus without complications; I13.10 Hypertensive heart and chronic kidney disease without heart failure, with stage 1 through stage 4 chronic kidney disease, or unspecified chronic kidney disease; N31.9 Neuromuscular dysfunction of bladder, unspecified; Z51.81 Encounter for therapeutic drug level monitoring; Z79.899 Other long term (current) drug therapy; Z79.01 Long term (current) use of anticoagulants; Z79.84 Long term (current) use of oral hypoglycemic drugs; Z79.82 Long term (current) use of aspirin; Z86.19 Personal history of other infectious and parasitic diseases; Z87.891 Personal history of nicotine dependence; Z83.3 Family history of diabetes mellitus; Y84.6 Urinary catheterization as the cause of abnormal reaction of the patient, or of later complication, without mention of misadventure at the time of the procedure; Y99.8 Other external cause status

== ENCOUNTER 2017-01-14 14:04 | Emergency (ER) | payer OTHER ==
[~2017-01-14] VITALS: Ht 177.8 cm; Wt 110.0 kg
[~2017-01-14 14:04] MED LIST changes: +AMOX1TAB43 PO; +APIX1TAB3 PO; +ASPCH81X PO; +BACL10TA PO; +BRIM0.2S18 OPB; -DFL100 PO; +DILT-115 PO; +GLIP10TA10 PO; +LATA0.5S OPB; +LISI40TA PO; +MULT-506 PO; +MULTCAP33 PO; +TIMO0.05 OP; -ULT50X PO
[2017-01-14 14:07] VITALS: TEMP 37; Ht 177.8 cm; Wt 110.0 kg
--- NOTE | 2017-01-14 14:23 | EMERGENCY ROOM VISIT NOTE ---
History Report prepared by Griselda: Rayna Scott Under the Supervision of: Dr. Lito Velez M.D. First contact with patient: 14:12 Chief Complaint: CATHETER REPLACEMENT Stated Complaint: CATHETER SLIPPED- BLOODY URINE AND PAIN History of Present Illness The patient is a 71 year old male who presents to the Emergency Room for a catheter replacement after difficulty beginning today. The patient states that he had a catheter placed a few days ago and it was working well with some mild discomfort that did not begin until today. He reports that he wanted to have his 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 reposition the catheter today but she is gone for the weekend. He complains of penis pain, bladder pain, and blood in his urine. The patient notes that this has happened before and the catheter needed to be flushed out. He states that movement worsens his pain. He denies any abdominal pain. Source of History: patient Onset: today Position: other (catheter) Quality: other (discomfort) Timing: constant Modifying Factors (Worsening): movement Associated Symptoms: No abdominal pain Note: Pt complains of penis pain, bladder pain, and bloody urine. Review of Systems See HPI for pertinent positives & negatives. A total of 10 systems reviewed and were otherwise negative. Past Medical & Surgical Medical Problems: (1) Atrial fibrillation (2) Chronic Kidney Disease, Stage Iii (Moderate) (3) Diab Maliha Wo Compl, Type Ii Or Unspec Type, Not Uncntrld Surgical Problems: (1) History of throat surgery Family History No pertinent family history Social History Smoking Status: Former Smoker Alcohol Use: none Drug Use: none Marital Status: single Housing Status: lives alone Occupation Status: employed Current/Historical Medications Scheduled Amoxicillin & Pot Clavulanate (Amoxicillin/Clavulanate P), 875 MG PO BIDM Apixaban (Eliquis), 5 MG PO BID Aspirin (Aspirin Chewable), 81 MG PO DAILY Baclofen (Lioresal), 10 MG PO QID Brimonidine Tartrate (Brimonidine Tartrate), 1 DROP OPB BID Diltiazem Hcl Ext Rel (Tiazac), 240 MG PO DAILY Glipizide (Glipizide), 10 MG PO BID Latanoprost (Xalatan 0.005% Oph Freida), 1 DROP OPB DAILY Lisinopril (Zestril), 40 MG PO DAILY Metformin Hcl Er (Glucophage Er), 1 TAB PO BID Metoprolol Tartrate (Metoprolol Tartrate), 100 MG PO BID Multiple Vitamins W/ Minerals (Preservision Areds), 1 CAP PO BID Multivitamin (Multivitamin), 1 TAB PO DAILY Polyethylene Glycol 3350 (Miralax), 17 GM PO DAILY Timolol Maleate (Ophth) (Timoptic 0.25% Oph), 1 DROP OP BID Allergies Coded Allergies: No Known Allergies (Unverified , 01/14/17) Physical Exam Vital Signs Date Time Temp Pulse Resp B/P (MAP) Pulse Ox O2 Delivery O2 Flow Rate FiO2 01/14/17 15:10 82 16 143/87 93 01/14/17 14:07 37.0 88 20 153/70 96 Room Air Physical Exam GENERAL: Patient is a healthy-appearing well-nourished [] HEAD: Normocephalic atraumatic EYES: Ocular movements intact pupils equal and react to light OROPHARYNX mucous membranes are moist no exudates present no erythema or edema present NECK: Supple no nuchal rigidity CHEST: Good equal expansion LUNGS: Clear and equal to auscultation CARDIAC: Normal S1 and S2 ABDOMEN: Soft nontender no guarding BACK: No CVA tenderness EXTREMITIES: No pain upon palpation normal muscle strength in all groups no clubbing cyanosis or edema NEURO: Patient is following commands and answering questions appropriately. Alert and oriented x3 Cranial Nerves 2-12 grossly intact : Pedraza in place, draining dark urine. Medical Decision & Procedures Laboratory Results Test 01/14/17 14:40 Urine Color ORANGE Urine Appearance CLOUDY (CLEAR) Urine pH 6.0 (4.5-7.5) Urine Specific [place] 1.015 (1.000-1.030) Urine Protein 2+ (NEG) Urine Glucose (UA) NEG (NEG) Urine Ketones NEG (NEG) Urine Occult Blood 3+ (NEG) Urine Nitrite NEG (NEG) Urine Bilirubin NEG (NEG) Urine Urobilinogen NEG (NEG) Urine Leukocyte Esterase MODERATE (NEG) Urine WBC (Auto) >30 /hpf (0-5) Urine RBC (Auto) >30 /hpf (0-4) Urine Hyaline Casts (Auto) 0 /lpf (0-5) Urine Epithelial Cells (Auto) 0-5 /lpf (0-5) Urine Bacteria (Auto) NEG (NEG) Urine Renal Epithelial Cells /lpf (0-5) Labs reviewed by ED physician. ED Course 1412: Past medical records reviewed. The patient was evaluated in room C9. A complete history and physical examination was performed. 1452: The catheter was repositioned and drained a liter of fluid and he feels 100% better. 1302: Upon reexamination the patient is doing well. I discussed results and treatment plan with the patient. He verbalizes agreement and understanding. The patient is ready for discharge. Medical Decision Differential diagnosis includes UTI, blocked pedraza. This is a 71-year-old male who presents emergency department unable to his urine. The patient feels that the Pedraza just needs to be moved. For this reason the balloon was deflated and replaced and immediately 1 L of urine drained. Based on these findings I feel the patient can be safely discharged home. I recommended he follow-up with urology. Patient was in agreement with the treatment plan. Medication Reconcilliation Current Medication List: was personally reviewed by me Blood Pressure Screening Patient's blood pressure: Elevated blood pressure Blood pressure disposition: Referred to PCP Impression Primary Impression: Complication of Pedraza catheter Scribe Attestation The scribe's documentation has been prepared under my direction and personally reviewed by me in its entirety. I confirm that the note above accurately reflects all work, treatment, procedures, and medical decision making performed by me. Departure Information Dispostion Home / Self-Care Referrals Stella Leung M.D. (PCP) Forms HOME CARE DOCUMENTATION FORM, IMPORTANT VISIT INFORMATION Patient Instructions Catheter Indwelling Urinary Dc, [facility] Additional Instructions You were found to have an elevated blood pressure today (>120 sytolic or >90 diastolic). Per medicare guidelines, you need to follow up with this blood pressure screening with your Primary Care Physician (PCP). For a new PCP call [phone]. You have been examined and treated today on an emergency basis only. This is not a substitute for, or an effort to provide, complete comprehensive medical care. It is impossible to recognize and treat all injuries or illnesses in a single emergency department visit. It is therefore important that you follow up closely with Dr Leung. Call as soon as possible for an appointment. Thank you for your time and consideration. I look forward to speaking with you again soon. Please don't hesitate to call us if you have any questions. Problem Qualifiers Primary Impression: Complication of Pedraza catheter Encounter type: initial encounter Qualified Codes: T83.9XXA - Unspecified complication of genitourinary prosthetic device, implant and graft, initial encounter
[2017-01-14] MEDS ORDERED: POLY335019 PO (15:06)
[2017-01-14 15:10] VITALS: BP 143/87; PULSE 82; O2SAT 93
[2017-01-14 15:13] LABS: URINE APPEARANCE CLOUDY (CLEAR); URINE BILIRUBIN NEG (NEG); URINE COLOR ORANGE; URINE NITRITE NEG (NEG); URINE SPECIFIC GRAVITY 1.015 (1.000-1.030); UROBILINOGEN NEG (NEG); ZZURINE CULT IF INDIC CATH YES
[2017-01-14 15:14] LABS: MANUAL MICROSCOPIC REQUIRED? NO; REVIEW REQ? YES
[2017-01-14 15:32] LABS: URINE EPITHELIAL CELL AUTO 0-5 /lpf (0-5)
== END 2017-01-14 15:11 | disposition home or self-care (01) ==
LOC: C.EDB 14:06 → C.EDC 15:11
DX: T83.9XXA Unspecified complication of genitourinary prosthetic device, implant and graft, initial encounter (principal); X58.XXXA Exposure to other specified factors, initial encounter; Z96.0 Presence of urogenital implants; I48.91 Unspecified atrial fibrillation; N18.3 Chronic kidney disease, stage 3 (moderate); E11.22 Type 2 diabetes mellitus with diabetic chronic kidney disease; Z87.891 Personal history of nicotine dependence; Z79.82 Long term (current) use of aspirin; Z79.84 Long term (current) use of oral hypoglycemic drugs

== ENCOUNTER 2017-04-13 16:52 | Emergency (ER) | payer OTHER ==
[~2017-04-13] VITALS: Ht 179.1 cm; Wt 109.0 kg
[~2017-04-13 16:52] MED LIST changes: -DOCU100C PO; +POLY335019 PO
[2017-04-13 16:57] VITALS: TEMP 36.7; Ht 179.1 cm; Wt 109.0 kg
[2017-04-13] MEDS ORDERED: METO50TA16 PO (19:35)
[2017-04-13] MEDS ORDERED: FRS/40 PO (19:35)
[2017-04-13] MEDS ORDERED: METF-384 PO (19:35)
[2017-04-13] MEDS ORDERED: METH1TAB5 PO (19:35)
--- NOTE | 2017-04-13 20:43 | EMERGENCY ROOM VISIT NOTE ---
History Report prepared by Griselda: Oni Baker Under the Supervision of: Dr. Lito Stratton D.O. First contact with patient: 18:44 Chief Complaint: CATHETER REPLACEMENT Stated Complaint: BLEEDING CATHETER History of Present Illness The patient is a 71 year old male who presents to the Emergency Room with complaints of constant bleeding around his catheter beginning today. The patient states that he had a Coon catheter replaced this morning by his at home nurse. He notes that there was a small amount of blood in the bag that began to turn clear. He reports that an hour later, he began to notice blood coming from his penis around the outside of the tube. The patient states that he has had bleeding from his catheter before, but notes that there is more blood this time than any previous time. He reports that he has had a Coon catheter for the past four years. He denies any discomfort but notes that he is a little sore. He notes that he takes blood thinners twice a day for atrial fibrillation and reports that he last took his medication this morning. Source of History: patient Onset: today Position: other (penis) Timing: constant Note: he denies any discomfort but notes that he is a little sore Review of Systems See HPI for pertinent positives & negatives. A total of 10 systems reviewed and were otherwise negative. Past Medical & Surgical Medical Problems: (1) Atrial fibrillation (2) Chronic Kidney Disease, Stage Iii (Moderate) (3) Diab Maliha Wo Compl, Type Ii Or Unspec Type, Not Uncntrld Surgical Problems: (1) History of throat surgery Family History No pertinent family history Social History Smoking Status: Former Smoker Alcohol Use: none Drug Use: none Marital Status: single Housing Status: lives alone Occupation Status: employed Current/Historical Medications Scheduled Apixaban (Eliquis), 5 MG PO BID Aspirin (Aspirin Chewable), 81 MG PO DAILY Baclofen (Lioresal), 10 MG PO QID Brimonidine Tartrate (Brimonidine Tartrate), 1 DROP OPB BID Diltiazem Hcl Ext Rel (Tiazac), 240 MG PO DAILY Furosemide (Lasix), 40 MG PO Q2D Glipizide (Glipizide), 10 MG PO BID Latanoprost (Xalatan 0.005% Oph Freida), 1 DROP OPB DAILY Lisinopril (Zestril), 40 MG PO DAILY Metformin Hcl (Glucophage), 1,000 MG PO BID Methenamine Hippurate (Methenamine Hippurate), 1 GM PO QPM Metoprolol Tartrate (Lopressor) (Lopressor), 50 MG PO BID Multiple Vitamins W/ Minerals (Preservision Areds), 1 CAP PO BID Multivitamin (Multivitamin), 1 TAB PO DAILY Timolol Maleate (Ophth) (Timoptic 0.25% Oph), 1 DROP OP BID Scheduled PRN Polyethylene Glycol 3350 (Miralax), 17 GM PO DAILY PRN for Constipation Allergies Coded Allergies: No Known Allergies (Unverified , 01/14/17) Physical Exam Vital Signs Date Time Temp Pulse Resp B/P (MAP) Pulse Ox O2 Delivery O2 Flow Rate FiO2 04/13/17 21:10 95 20 184/85 94 04/13/17 20:06 99 192/113 94 Room Air 04/13/17 16:57 36.7 76 20 204/99 94 Room Air Physical Exam CONSTITUTIONAL/VITAL SIGNS: Reviewed / noted above. GENERAL: Non-toxic in appearance. INTEGUMENTARY: Warm, dry, and [place]. HEAD: Normocephalic. EYES: without scleral icterus or trauma. ENT/OROPHARYNX: clear and moist. LYMPHADENOPATHY/NECK: Is supple without lymphadenopathy or meningismus. RESPIRATORY: Lungs clear and equal. CARDIOVASCULAR: Regular rate and rhythm. GI/ABDOMEN: Soft and nontender. No organomegaly or pulsatile mass. No rebound or guarding. Normal bowel sounds. Chronic prominent umbilical hernia : Coon catheter placed, light bleeding and clots noticed from the penis coming from the outside of the Coon catheter EXTREMITIES: Warm and well perfused. BACK: No CVA tenderness. NEUROLOGICAL: Intact without focal deficits. PSYCHIATRIC: normal affect. MUSCULOSKELETAL: Normally developed with good muscle tone. Medical Decision & Procedures ED Course 1848: Previous medical records were reviewed. The patient was evaluated in room C4. A complete history and physical examination was performed. 2052: I discussed the patient's case with Dr. Andrews - Urology, [facility] [place]. He agreed that the patient is stable enough to be discharged. 2103: On reevaluation, the patient is stable. I discussed the results and findings with the patient. He verbalized agreement of the treatment plan. The patient was discharged home. Medical Decision Differentials include: penile trauma from catheter placement, bleeding disorder related to anticoagulation therapy, anemia, and infection. . This is a 71-year-old male who presents to the ED with a chief complaint of bleeding from around his Coon catheter. The patient states that he had a nurse come out this morning and change his indwelling O[place] catheter. The initial one was not working and she had to return and place another one. He states that upon placing the second one, it was uncomfortable and he developed hematuria after this. The patient states that initially there was blood in the Coon catheter but then he developed bleeding from around the catheter site. The patient is currently on Apixaban for atrial fibrillation and also takes aspirin. The patient has seen Dr. Barragan in the past. The patient denies any other specific complaints. His physical exam reveals some mild bleeding from around the outside of the catheter. There is clot in this region as well. I did check the catheter placement with a bedside ultrasound reveals the balloon is in the bladder. The nurses irrigated the catheter and although it was still pink, the catheter seems to be appropriately working. I discussed with the patient the plan. The patient will discontinue his Apixaban and aspirin for the next 24-48 hours until the bleeding stops. I did speak with the urologist on-call. He did not recommend further intervention at this time. I suspect traumatic injury of the urethra related to the Coon catheter and bleeding that is obviously worsened by the fact that he is on antiplatelet and anti- coagulation medications. He is return for any other concerns and follow up with Dr. Barragan on Sunday for recheck. Blood Pressure Screening Patient's blood pressure: Elevated blood pressure Blood pressure disposition: Referred to PCP Consults Time Called: 2049 Consulting Physician: Dr. Andrews - Urology, [facility] [place] Returned Call: 2052 He agreed that the patient is stable enough to be discharged. Impression Primary Impression: Complication of catheter Scribe Attestation The scribe's documentation has been prepared under my direction and personally reviewed by me in its entirety. I confirm that the note above accurately reflects all work, treatment, procedures, and medical decision making performed by me. Departure Information Dispostion Home / Self-Care Referrals No Doctor, Assigned (PCP) Forms HOME CARE DOCUMENTATION FORM, IMPORTANT VISIT INFORMATION Patient Instructions ED Catheter Care [place] [facility] Additional Instructions Stop taking your Apixaban and aspirin for the next 24-48 hours to see if the bleeding subsides. Return to ED for lightheadedness, increase bleeding, or other concerns. See Dr. Barragan on Sunday for recheck. Your blood pressure today was elevated. See your doctor for recheck of this next week.
[2017-04-13 21:10] VITALS: BP 184/85; PULSE 95; O2SAT 94
== END 2017-04-13 21:10 | disposition home or self-care (01) ==
LOC: C.EDB 16:54 → C.EDC 21:10
DX: T83.098A Other mechanical complication of other urinary catheter, initial encounter (principal); X58.XXXA Exposure to other specified factors, initial encounter; I48.91 Unspecified atrial fibrillation; E11.22 Type 2 diabetes mellitus with diabetic chronic kidney disease; N18.3 Chronic kidney disease, stage 3 (moderate); K42.9 Umbilical hernia without obstruction or gangrene; Z79.01 Long term (current) use of anticoagulants; Z79.82 Long term (current) use of aspirin; Z79.84 Long term (current) use of oral hypoglycemic drugs; Z96.0 Presence of urogenital implants; Z87.891 Personal history of nicotine dependence

== ENCOUNTER 2017-04-15 04:54 | Emergency (ER) | payer OTHER ==
[~2017-04-15] VITALS: Ht 177.8 cm; Wt 109.1 kg
[~2017-04-15 04:54] MED LIST changes: -AMOX1TAB43 PO; +FRS/40 PO; -LPR100 PO; +METF-384 PO; -METF500T5 PO; +METH1TAB5 PO; +METO50TA16 PO
[2017-04-15 05:00] VITALS: Ht 177.8 cm; Wt 109.1 kg
[2017-04-15 05:44] LABS: URINE APPEARANCE CLOUDY (CLEAR); URINE BILIRUBIN NEG (NEG); URINE COLOR YELLOW; URINE EPITHELIAL CELL AUTO 0-5 /lpf (0-5); URINE NITRITE NEG (NEG); URINE SPECIFIC GRAVITY 1.023 (1.000-1.030); UROBILINOGEN NEG (NEG); ZZURINE CULT IF INDIC CATH YES
[2017-04-15 05:48] LABS: MANUAL MICROSCOPIC REQUIRED? NO; REVIEW REQ? YES
--- NOTE | 2017-04-15 05:52 | EMERGENCY ROOM VISIT NOTE ---
ED Visit Note First contact with patient: 05:41 CHIEF COMPLAINT: Unable to urinate HISTORY OF PRESENT ILLNESS: This 71-year-old male presents to the emergency department with complaint of blocked indwelling catheter since 8 PM last night. He feels a strong desire to urinate but has been unable to. He feels very uncomfortable and has a steady, moderate pain in the lower abdomen. He notes that he has chronic indwelling catheter, gets this changed once a month, it was last changed this past Sunday, and he feels the nurse had a difficult time getting the catheter in. He was seen in this emergency department yesterday with the same complaint of being unable to void, the catheter was flushed and repositioned, and he was discharged home. He sees a catheter was draining okay earlier yesterday, but he did note some blood in the urine. He denies any fever /chills, chest pain, shortness of breath, back pain, bowel problems, rash. REVIEW OF SYSTEMS: A complete 10 point review of systems was reviewed with the patient with pertinent positives and negatives as per history of present illness. All else were negative. PMH: Reviewed in chart. SOCIAL HISTORY: Patient lives at home. Non-smoker, no excessive alcohol use. PHYSICAL EXAM: Vital Signs: Reviewed Nurse's notes. CONSTITUTIONAL: No acute distress. Well appearing and well nourished. Alert and oriented X 4 with normal affect. HEENT: Normocephalic, atraumatic. Pupils equal, round and reactive to light, EOMI. TMs normal. Pharynx normal. NECK: Supple, full active range of motion without discomfort. RESPIRATORY: Clear to auscultation bilaterally with no wheezing, crackles, rhonchi or stridor. Equal expansion bilaterally. CARDIOVASCULAR: Regular rate and rhythm with no murmurs, rubs or gallops. Normal peripheral perfusion. No edema. GASTROINTESTINAL: Soft, nontender, nondistended. Bowel sounds present in all quadrants. MUSCULOSKELETAL: Full range of motion of all joints without discomfort. INTEGUMENTARY: No rash or other significant dermatologic conditions noted. NEUROLOGIC: Cranial nerves II-XII grossly intact. No focal neurologic deficits noted. EMERGENCY DEPARTMENT COURSE: I examined the patient. His existing catheter was removed by nursing, with a large blood clot noted to the tip of the catheter. A new Coon catheter was placed with immediate return of 1200 ml of blood-tinged urine. This was sent for urinalysis and culture. The patient's blood pressure was monitored after placement of the catheter due to such a large volume displacement, this remained stable. A leg bag was attached and the patient was discharged feeling greatly improved. He was instructed to follow up with his PCP and Urologist. Medication Reconciliation: I attest that I have personally reviewed the patient' s current medication list. Blood pressure screening: The patient was found to have an elevated blood pressure and this was felt to be situational. I discussed the patient with Dr. May, who agreed with my assessment and disposition. Problem List Medical Problems: (1) Atrial fibrillation Status: Chronic (2) Chronic Kidney Disease, Stage Iii (Moderate) Status: Chronic (3) Diab Maliha Wo Compl, Type Ii Or Unspec Type, Not Uncntrld Status: Chronic Surgical Problems: (1) History of throat surgery Status: Resolved Current/Historical Medications Scheduled Apixaban (Eliquis), 5 MG PO BID Aspirin (Aspirin Chewable), 81 MG PO DAILY Baclofen (Lioresal), 10 MG PO QID Brimonidine Tartrate (Brimonidine Tartrate), 1 DROP OPB BID Diltiazem Hcl Ext Rel (Tiazac), 240 MG PO DAILY Furosemide (Lasix), 40 MG PO Q2D Glipizide (Glipizide), 10 MG PO BID Latanoprost (Xalatan 0.005% Oph Freida), 1 DROP OPB DAILY Lisinopril (Zestril), 40 MG PO DAILY Metformin Hcl (Glucophage), 1,000 MG PO BID Methenamine Hippurate (Methenamine Hippurate), 1 GM PO QPM Metoprolol Tartrate (Lopressor) (Lopressor), 50 MG PO BID Multiple Vitamins W/ Minerals (Preservision Areds), 1 CAP PO BID Multivitamin (Multivitamin), 1 TAB PO DAILY Timolol Maleate (Ophth) (Timoptic 0.25% Oph), 1 DROP OP BID Scheduled PRN Polyethylene Glycol 3350 (Miralax), 17 GM PO DAILY PRN for Constipation Allergies Coded Allergies: No Known Allergies (Unverified , 04/15/17) Vital Signs Date Time Temp Pulse Resp B/P (MAP) Pulse Ox O2 Delivery O2 Flow Rate FiO2 04/15/17 07:00 36.6 79 18 133/75 96 04/15/17 06:36 80 18 133/75 95 04/15/17 06:25 129/73 04/15/17 05:00 36.6 75 18 148/80 97 Room Air Laboratory Results Test 04/15/17 05:19 Urine Color YELLOW Urine Appearance CLOUDY (CLEAR) Urine pH 5.0 (4.5-7.5) Urine Specific [place] 1.023 (1.000-1.030) Urine Protein 2+ (NEG) Urine Glucose (UA) 1+ (NEG) Urine Ketones NEG (NEG) Urine Occult Blood 3+ (NEG) Urine Nitrite NEG (NEG) Urine Bilirubin NEG (NEG) Urine Urobilinogen NEG (NEG) Urine Leukocyte Esterase MODERATE (NEG) Urine WBC (Auto) >30 /hpf (0-5) Urine RBC (Auto) >30 /hpf (0-4) Urine Hyaline Casts (Auto) 0 /lpf (0-5) Urine Epithelial Cells (Auto) 0-5 /lpf (0-5) Urine Bacteria (Auto) 4+ (NEG) Urine Pathogenic Casts /lpf (0) Date/Time Source Procedure Growth Status 04/15/17 05:19 Urine,Catheterized Urine Culture - Final Enterobacter Aerogenes Klebsiella Pneumoniae Complete Departure Information Impression Primary Impression: Complication of catheter Additional Impression: Urinary retention Dispostion Home / Self-Care Condition GOOD Referrals No Doctor, Assigned (PCP) Donovan Barragan M.D. Patient Instructions ED Catheter Care Coon, ED Retention Urinary Male, My [facility] Additional Instructions Read the urinary catheter care handout. Continue to hold your Eliquis (blood thinner) for today, and discuss restarting this with your doctor tomorrow. You should follow-up with your urologist this week to discuss your catheter issues, call tomorrow morning to set up an appointment. You should also follow up with your PCP in the next few days. Problem Qualifiers Primary Impression: Complication of catheter Encounter type: subsequent encounter Qualified Codes: T85.9XXD - Unspecified complication of internal prosthetic device, implant and graft, subsequent encounter
--- NOTE | 2017-04-15 06:52 | EMERGENCY ROOM VISIT NOTE ---
ED Visit Note First contact with patient: 05:41 Patient evaluated at bedside. States he is feeling markedly improved after new Coon catheter was inserted and his bladder was drained. No gross blood noted or clots. Patient's lower abdomen soft and nontender. Periumbilical hernia noted but easily reducible and nontender.
[2017-04-15 07:00] VITALS: BP 133/75; PULSE 79; TEMP 36.6; O2SAT 96
--- NOTE | 2017-04-17 18:57 | Pharmacy Progress Note ---
ED Pharmacist Culture FollowUp Date of Service: Apr 17, 2017. Patient presented with pedraza obstruction with subsequent pedraza exchange. Urine culture was sent and grew Enterobacter and klebsiella. Discussed with Dr. Puente and he elected to just inform patients pcp/urologist. The patient's urologist is Dr. Barragan and Dr Carrillo is his PCP. I called the patient and he reported he was feeling much better. Since the offices are currently closed, I informed him if he felt at all like he was declining, he could return to the ER and he verbalized his understanding. I told him I was alert his urologist in the morning to these results and they would determine if any further management with antibiotics is required.
== END 2017-04-15 07:01 | disposition home or self-care (01) ==
LOC: C.EDB 04:55
DX: T83.098A Other mechanical complication of other urinary catheter, initial encounter (principal); Y84.6 Urinary catheterization as the cause of abnormal reaction of the patient, or of later complication, without mention of misadventure at the time of the procedure; R33.9 Retention of urine, unspecified; I48.91 Unspecified atrial fibrillation; N18.3 Chronic kidney disease, stage 3 (moderate); E11.9 Type 2 diabetes mellitus without complications; Z79.01 Long term (current) use of anticoagulants; Z79.899 Other long term (current) drug therapy; Z79.82 Long term (current) use of aspirin

== ENCOUNTER → 2017-05-08 | Outpatient (CLI) | payer OTHER ==
[~2017-05-08] MED LIST changes: +METH-1305 PO; -METH1TAB5 PO
== END | disposition home or self-care (01) ==
LOC: C.PATHSPEC 17:28
PROVIDERS: ATTEND Urology
DX: D49.4 Neoplasm of unspecified behavior of bladder (principal)

== ENCOUNTER 2017-11-04 10:33 | Inpatient (IN) | payer OTHER ==
[~2017-11-04] VITALS: Ht 180.3 cm; Wt 124.8 kg
[~2017-11-04 10:33] MED LIST changes: -TIMO0.05 OP; +TIMO0.2518 OP
[2017-11-04] MEDS ORDERED: ONDANSETRON INJ 2 MG/ML 2 ML VIAL IV STA (10:46)
[2017-11-04] MEDS ORDERED: PIPERACILLIN/TAZOBACTAM 4.5 GM/100ML D5W IV STA (10:46)
[2017-11-04] MEDS ORDERED: SODIUM CHLORIDE 0.9% 1000ML 500 ML IV STA (10:46)
[2017-11-04 11:15] LABS: BASO % 0.1 %; BASO ABS # 0.02 K/uL (0-0.2); EOS % 5.8 %; EOS ABS # 0.78 K/uL (0-0.5); HEMATOCRIT 42.4 % (42-52); HEMOGLOBIN 14.1 g/dL (14.0-18.0); IG# 0.03 K/uL (0.00-0.02); LYMPH % 8.4 %; LYMPH ABS # 1.14 K/uL (1.2-3.4); MEAN CELL VOLUME 82.2 fL (80-100); MEAN CORPUSCULAR HEMOGLOBIN 27.3 pg (25-34); MEAN CORPUSCULAR HGB CONC 33.3 g/dl (32-36); MEAN PLATELET VOLUME 10.9 fL (7.4-10.4); MONO % 9.4 %; MONO ABS # 1.28 K/uL (0.11-0.59); NEUT % 76.1 %; NEUT ABS # 10.31 K/uL (1.4-6.5); PLATELET COUNT 253 K/uL (130-400); RED CELL DISTRIBUTION WIDTH CV 15.4 % (11.5-14.5); RED CELL DISTRIBUTION WIDTH SD 46.4 fL (36.4-46.3); WHITE BLOOD COUNT 13.56 K/uL (4.8-10.8)
[2017-11-04] MEDS ORDERED: PRED1SUS3 OPB (11:15)
[2017-11-04] MEDS ORDERED: SERT25TA PO (11:15)
--- NOTE | 2017-11-04 11:15 | EMERGENCY ROOM VISIT NOTE ---
History Report prepared by Griselda: Oni Baker Under the Supervision of: Dr. Chandra Sorenson M.D. First contact with patient: 10:39 Stated Complaint: CATHETER CLOGGED/BURNING PAIN History of Present Illness The patient is a 72 year old male who presents to the Emergency Room with complaints of a constant clogged catheter beginning three days ago. The patient states that he has had his current catheter in place for the last week. He notes that he believes that his catheter is clogged as he is experiencing groin pain and is having some discharge from the site. He also complains of difficulty urinating, weakness, a decreased appetite, and lightheadedness. He denies any fever, nausea, and vomiting. He reports that his umbilical hernia is chronic. He rates his pain as a 5/10. Source of History: patient Onset: three days ago Position: other (catheger) Symptom Intensity: 5/10 Quality: other (clogged catheter) Timing: constant Associated Symptoms: + urinary symptoms (difficulty), + weakness, No fevers , No nausea, No vomiting Note: The patient complains of groin pain, discharge from his catheter, a decreased appetite, and lightheadedness. Review of Systems See HPI for pertinent positives & negatives. A total of 10 systems reviewed and were otherwise negative. Past Medical & Surgical Medical Problems: (1) Atrial fibrillation (2) Chronic Kidney Disease, Stage Iii (Moderate) (3) Diab Maliha Wo Compl, Type Ii Or Unspec Type, Not Uncntrld (4) Coon catheter in place (5) Scrotal infection (6) Umbilical hernia (7) Urinary retention (8) UTI (urinary tract infection) Surgical Problems: (1) H/O prostatectomy (2) History of throat surgery Family History No pertinent family history Social History Smoking Status: Former Smoker Alcohol Use: none Drug Use: none Marital Status: Housing Status: lives alone Occupation Status: retired Current/Historical Medications Scheduled Apixaban (Eliquis), 5 MG PO BID Aspirin (Aspirin Chewable), 81 MG PO DAILY Baclofen (Lioresal), 10 MG PO QID Brimonidine Tartrate (Brimonidine Tartrate), 1 DROP OPB BID Diltiazem Hcl Ext Rel (Tiazac), 240 MG PO DAILY Furosemide (Lasix), 80 MG PO Q2D Furosemide (Lasix), 40 MG PO Q2D Glipizide (Glipizide), 10 MG PO BID Latanoprost (Xalatan 0.005% Oph Freida), 1 DROP OPB DAILY Lisinopril (Zestril), 40 MG PO DAILY Metformin Hcl (Glucophage), 1,000 MG PO BID Methenamine Hippurate (Methenamine Hippurate), 1 GM PO QPM Metoprolol Tartrate (Lopressor) (Lopressor), 50 MG PO BID Multivitamin (Multivitamin), 1 TAB PO DAILY Prednisolone Acetate (Ophth) (Pred Forte 1% Oph), 1 DROP OPB DAILY Sertraline (Zoloft), Unknown Dose PO DAILY Timolol Maleate (Ophth) (Timoptic 0.25% Oph), 1 DROP OP BID Allergies Coded Allergies: No Known Allergies (Unverified , 11/04/17) Physical Exam Vital Signs Date Time Temp Pulse Resp B/P (MAP) Pulse Ox O2 Delivery O2 Flow Rate FiO2 11/04/17 13:05 79 18 94 11/04/17 12:47 72 19 124/71 94 Room Air 11/04/17 11:49 81 11/04/17 11:45 74 20 94/63 92 Room Air 11/04/17 11:24 93 Room Air 11/04/17 10:50 36.7 81 16 129/79 95 Room Air Physical Exam GENERAL: Patient is in no acute distress. HEENT: No acute trauma, normocephalic atraumatic, mucous membranes dry, no nasal congestion, no scleral icterus. NECK: No stridor, no adenopathy, no meningismus, trachea is midline. LUNGS: Clear to auscultation bilaterally, no wheeze, no rhonchi, breath sounds equal. HEART: Without murmurs gallops or rubs, regular rate and rhythm. ABDOMEN: Large nontender umbilical hernia, some abdominal distension and apparent bladder distension with tenderness over region of bladder, no peritonitis. EXTREMITIES: No cyanosis, full range of motion of all the joints without pain or difficulty, no signs for acute trauma, moderate bilateral pedal edema with some bilateral leg erythema from the feet to the proximal legs, feet are cool to the touch. NEUROLOGIC: Oriented x 3, Awake and alert. SKIN: No rash, no jaundice, no diaphoresis. : Coon catheter in place with minimal urine in bag, white-yellow discharge where the catheter inserts into the penis, no scrotal erythema. Medical Decision & Procedures ER Provider Diagnostic Interpretation: Radiology results as stated below per my review and radiologist interpretation: CHEST ONE VIEW PORTABLE FINDINGS: There are low lung volumes. The heart remains normal in size. No pneumothorax. No focal lung consolidations to suggest pneumonia. Linear density left lung base consistent with subsegmental atelectasis. This is not significantly changed. Trace left pleural effusion also persists. No evidence for pulmonary edema. IMPRESSION: No change in the trace left pleural effusion and left basilar linear densities. No acute process within the chest Electronically signed by: Shailesh Thompson M.D. 11/04/2017 11:21 AM ABDOMEN AND PELVIS CT WITHOUT CONTRAST FINDINGS: Trace right pleural effusion which has improved. A 4 mm indeterminate pulmonary nodule within the right lower lobe on image 7. This is stable compared to a 2015 examination and is therefore considered to be benign. No pneumoperitoneum. No pneumatosis. No suspicious lytic or blastic osseous lesions. Moderate-sized fat-containing umbilical hernia, unchanged. Mild hepatic steatosis. There is a 1 cm gallstone. No gallbladder wall thickening. The unenhanced spleen, adrenal glands, and pancreas are unremarkable. No renal or ureteral stones. Bilateral perinephric edema has slightly progressed. Interval development of mild bilateral hydroureteronephrosis to the level of the ureterovesical junctions. The bladder is completely decompressed by a Coon catheter. The Coon balloon is located within the bladder lumen. There is mild bladder wall thickening and adjacent fat stranding. There is also mild fat stranding surrounding the prostate gland. Suboptimal evaluation for bowel pathology due to the lack of intravenous and oral contrast. However, there is no definite bowel wall thickening or obstruction. Trace fluid and mild fat stranding at the anterior extraperitoneal space adjacent to the bladder. This is likely reactive. No retroperitoneal lymphadenopathy. Normal caliber abdominal aorta. Normal appendix. IMPRESSION: 1. Interval development of mild bilateral hydroureteronephrosis to the level of the ureterovesical junctions. However, no ureteral stones identified. 2. The bladder is completely decompressed by the Coon catheter. There is mild bladder wall thickening with surrounding fat stranding. There is also mild fat stranding surrounding the prostate gland. This favors a prostatitis/cystitis. Recommend correlation with urinalysis. 3. Mild bilateral perinephric edema which has progressed. This could be due to the hydronephrosis or secondary infectious process. 4. Cholelithiasis. 5. Trace right pleural effusion which has improved. 6. No definite bowel wall thickening or obstruction. 7. Moderate fat-containing umbilical hernia, unchanged. Electronically signed by: Shailesh Thompson M.D. 11/04/2017 11:52 AM Laboratory Results 11/04/17 10:54 Red Blood Count 5.16, Mean Corpuscular Volume 82.2, Mean Corpuscular Hemoglobin 27.3, Mean Corpuscular Hemoglobin Concent 33.3, Mean Platelet Volume 10.9, Neutrophils (%) (Auto) 76.1, Lymphocytes (%) (Auto) 8.4, Monocytes (%) (Auto) 9.4, Eosinophils (%) (Auto) 5.8, Basophils (%) (Auto) 0.1, Neutrophils # (Auto) 10.31, Lymphocytes # (Auto) 1.14, Monocytes # (Auto) 1.28, Eosinophils # (Auto) 0.78, Basophils # (Auto) 0.02 11/04/17 10:54 Test 11/04/17 10:50 11/04/17 10:54 11/04/17 11:05 Urine Color YELLOW Urine Appearance TURBID (CLEAR) Urine pH 5.0 (4.5-7.5) Urine Specific [place] 1.017 (1.000-1.030) Urine Protein 2+ (NEG) Urine Glucose (UA) NEG (NEG) Urine Ketones NEG (NEG) Urine Occult Blood 3+ (NEG) Urine Nitrite NEG (NEG) Urine Bilirubin NEG (NEG) Urine Urobilinogen NEG (NEG) Urine Leukocyte Esterase LARGE (NEG) Urine WBC (Auto) >30 /hpf (0-5) Urine RBC (Auto) 10-30 /hpf (0-4) Urine Hyaline Casts (Auto) 1-5 /lpf (0-5) Urine Epithelial Cells (Auto) 5-10 /lpf (0-5) Urine Bacteria (Auto) 3+ (NEG) Urine Pathogenic Casts /lpf (0) White Blood Count 13.56 K/uL (4.8-10.8) Red Blood Count 5.16 M/uL (4.7-6.1) Hemoglobin 14.1 g/dL (14.0-18.0) Hematocrit 42.4 % (42-52) Mean Corpuscular Volume 82.2 fL (80-100) Mean Corpuscular Hemoglobin 27.3 pg (25-34) Mean Corpuscular Hemoglobin Concent 33.3 g/dl (32-36) Platelet Count 253 K/uL (130-400) Mean Platelet Volume 10.9 fL (7.4-10.4) Neutrophils (%) (Auto) 76.1 % Lymphocytes (%) (Auto) 8.4 % Monocytes (%) (Auto) 9.4 % Eosinophils (%) (Auto) 5.8 % Basophils (%) (Auto) 0.1 % Neutrophils # (Auto) 10.31 K/uL (1.4-6.5) Lymphocytes # (Auto) 1.14 K/uL (1.2-3.4) Monocytes # (Auto) 1.28 K/uL (0.11-0.59) Eosinophils # (Auto) 0.78 K/uL (0-0.5) Basophils # (Auto) 0.02 K/uL (0-0.2) RDW Standard Deviation 46.4 fL (36.4-46.3) RDW Coefficient of Variation 15.4 % (11.5-14.5) Immature Granulocyte % (Auto) 0.2 % Immature Granulocyte # (Auto) 0.03 K/uL (0.00-0.02) Prothrombin Time 11.2 SECONDS (9.0-12.0) Prothromb Time International Ratio 1.1 (0.9-1.1) Activated Partial Thromboplast Time 31.0 SECONDS (21.0-31.0) Partial Thromboplastin Ratio 1.2 Anion Gap 8.0 mmol/L (3-11) Est Creatinine Clear Calc Drug Dose 39.7 ml/min Estimated GFR () 32.4 Estimated GFR (Non- 27.9 BUN/Creatinine Ratio 26.9 (10-20) Calcium Level 8.3 mg/dl (8.5-10.1) Magnesium Level 2.3 mg/dl (1.8-2.4) Total Bilirubin 1.3 mg/dl (0.2-1) Aspartate Amino Transf (AST/SGOT) 25 U/L (15-37) Alanine Aminotransferase (ALT/SGPT) 19 U/L (12-78) Alkaline Phosphatase 98 U/L (45-117) Troponin I < 0.015 ng/ml (0-0.045) Total Protein 6.9 gm/dl (6.4-8.2) Albumin 2.8 gm/dl (3.4-5.0) Globulin 4.1 gm/dl (2.5-4.0) Albumin/Globulin Ratio 0.7 (0.9-2) Thyroid Stimulating Hormone (TSH) 1.500 uIu/ml (0.300-4.500) Bedside Lactic Acid Venous 1.94 mmol/L (0.90-1.70) Laboratory results reviewed by me. Medications Administered Medications (Trade) Dose Ordered Sig/Gee Route Start Time Stop Time Status Last Admin Dose Admin Sodium Chloride 500 ml @ 999 mls/hr Q31M STAT IV 11/04/17 10:46 11/04/17 11:16 DC 11/04/17 11:11 999 MLS/HR Ondansetron HCl (Zofran Inj) 4 mg NOW STAT IV 11/04/17 10:46 11/04/17 10:52 DC 11/04/17 11:11 4 MG Piperacillin Sod/ Tazobactam Sod (Zosyn Iv) 4.5 gm NOW STAT IV 11/04/17 10:46 11/04/17 10:52 DC 11/04/17 11:11 4.5 GM Sodium Chloride 500 ml @ 999 mls/hr Q31M STAT IV 11/04/17 11:44 11/04/17 12:14 DC 11/04/17 11:50 999 MLS/HR ECG Per My Interpretation Indication: weakness Rate (beats per minute): 76 Rhythm: atrial fibrillation Findings: RBBB, no ectopy, other (No ST elevation, no PVCs) ED Course 1039: The patient was evaluated in room A2. A complete history and physical exam was performed. 1046: Zosyn Iv 4.5gm IV, Zofran Inj 4mg IV, Sodium Chloride 500 ml @ 999 mls/hr IV 1144: Sodium Chloride 500 ml @ 999 mls/hr IV 1212: I reevaluated and updated the patient. 1213: Upon reexamination the patient is stable. I discussed results and treatment plan with the patient. He verbalizes agreement and understanding. I spoke with Dr. Wyatt of the [facility] Hospitalist Service. We discussed the patient' s results and findings. The patient will be evaluated by Dr. Wyatt for further management. Medical Decision Differential diagnoses include: dehydration, urinary retention, UTI, renal failure, pyelonephritis, electrolyte imbalance, anemia, cellulitis, sepsis, and cardiac ischemia. The patient does have a leukocytosis, this is consistent with infection. No worrisome anemia. Renal panel testing shows acute renal failure. No hepatitis. No coagulopathy. Urinalysis does show evidence for infection, urine culture and blood cultures are pending. Lactic acid level was slightly high, this will need followed. Chest film did not show pneumonia or CHF. The patient was retaining urine, when the Coon was replaced, about 850 cc of urine drained immediately. Abdominal and pelvis CT shows some fullness to the renal collecting system, there was some inflammation around both kidneys and also around the prostate. No bowel obstruction. Patient appeared to be in a euthyroid state. EKG showed atrial fibrillation, no acute ischemia. Cardiac enzyme testing 1 is not consistent with acute cardiac injury. The patient requires a hospital stay. He has a UTI, he is retaining urine. He has acute renal failure and is dehydrated and has become too weak to support himself with transfer. I spoke to the patient and case management. The on- call hospitalist was consulted. Patient received IV Zosyn as antibiotic coverage. He was given IV saline for hydration. He received IV Zofran for nausea. He is currently resting comfortably. Medication Reconcilliation Current Medication List: was personally reviewed by me Blood Pressure Screening Patient's blood pressure: Normal blood pressure Blood pressure disposition: Did not require urgent referral Consults Time Called: 1209 Consulting Physician: Dr. Wyatt - Hospitalist, [facility] Returned Call: [phone] Discussed the patient's case. The patient will be evaluated for further management. Impression Primary Impression: Urinary retention Additional Impressions: UTI (urinary tract infection) Acute renal failure Weakness Scribe Attestation The scribe's documentation has been prepared under my direction and personally reviewed by me in its entirety. I confirm that the note above accurately reflects all work, treatment, procedures, and medical decision making performed by me. Departure Information Dispostion Being Evaluated By Hospitalist Referrals Jm Carrillo M.D. (PCP) Problem Qualifiers
--- NOTE | 2017-11-04 11:22 | DIAGNOSTIC IMAGING REPORT ---
CHEST ONE VIEW PORTABLE HISTORY: EVALUATE ALTERED MENTAL STATUS/WEAKNESS COMPARISON: Chest 11/12/2016. FINDINGS: There are low lung volumes. The heart remains normal in size. No pneumothorax. No focal lung consolidations to suggest pneumonia. Linear density left lung base consistent with subsegmental atelectasis. This is not significantly changed. Trace left pleural effusion also persists. No evidence for pulmonary edema. IMPRESSION: No change in the trace left pleural effusion and left basilar linear densities. No acute process within the chest Electronically signed by: Shailesh Thompson M.D. 11/04/2017 11:21 AM Dictated Date/Time: 11/04/2017 11:19 AM
[2017-11-04 11:23] LABS: INR 1.1 (0.9-1.1)
[2017-11-04 11:33] LABS: ALBUMIN 2.8 gm/dl (3.4-5.0); ALT/SGPT 19 U/L (12-78); AST/SGOT 25 U/L (15-37); BLOOD UREA NITROGEN 61 mg/dl (7-18); CALCIUM 8.3 mg/dl (8.5-10.1); CARBON DIOXIDE 29 mmol/L (21-32); CREATININE 2.26 mg/dl (0.60-1.40); GLUCOSE 237 mg/dl (70-99); POTASSIUM 4.1 mmol/L (3.5-5.1); SODIUM 137 mmol/L (136-145)
[2017-11-04 11:44] LABS: ALKALINE PHOSPHATASE 98 U/L (45-117); TOTAL PROTEIN 6.9 gm/dl (6.4-8.2)
[2017-11-04] MEDS ORDERED: SODIUM CHLORIDE 0.9% 500ML 500 ML IV STA (11:44)
--- NOTE | 2017-11-04 11:53 | DIAGNOSTIC IMAGING REPORT ---
ABDOMEN AND PELVIS CT WITHOUT CONTRAST CT DOSE: 1325.54 mGy.cm HISTORY: EVALUATE FLANK PAIN/HEMATURIA TECHNIQUE: Multiaxial CT images of the abdomen and pelvis were performed without the use of intravenous and oral contrast according to the standard department stone protocol. A dose lowering technique was utilized adhering to the principles of ALARA. COMPARISON STUDY: Abdomen and pelvis CT 09/22/2016. FINDINGS: Trace right pleural effusion which has improved. A 4 mm indeterminate pulmonary nodule within the right lower lobe on image 7. This is stable compared to a 2015 examination and is therefore considered to be benign. No pneumoperitoneum. No pneumatosis. No suspicious lytic or blastic osseous lesions. Moderate-sized fat-containing umbilical hernia, unchanged. Mild hepatic steatosis. There is a 1 cm gallstone. No gallbladder wall thickening. The unenhanced spleen, adrenal glands, and pancreas are unremarkable. No renal or ureteral stones. Bilateral perinephric edema has slightly progressed. Interval development of mild bilateral hydroureteronephrosis to the level of the ureterovesical junctions. The bladder is completely decompressed by a Coon catheter. The Coon balloon is located within the bladder lumen. There is mild bladder wall thickening and adjacent fat stranding. There is also mild fat stranding surrounding the prostate gland. Suboptimal evaluation for bowel pathology due to the lack of intravenous and oral contrast. However, there is no definite bowel wall thickening or obstruction. Trace fluid and mild fat stranding at the anterior extraperitoneal space adjacent to the bladder. This is likely reactive. No retroperitoneal lymphadenopathy. Normal caliber abdominal aorta. Normal appendix. IMPRESSION: 1. Interval development of mild bilateral hydroureteronephrosis to the level of the ureterovesical junctions. However, no ureteral stones identified. 2. The bladder is completely decompressed by the Coon catheter. There is mild bladder wall thickening with surrounding fat stranding. There is also mild fat stranding surrounding the prostate gland. This favors a prostatitis/cystitis. Recommend correlation with urinalysis. 3. Mild bilateral perinephric edema which has progressed. This could be due to the hydronephrosis or secondary infectious process. 4. Cholelithiasis. 5. Trace right pleural effusion which has improved. 6. No definite bowel wall thickening or obstruction. 7. Moderate fat-containing umbilical hernia, unchanged. Electronically signed by: Shailesh Thompson M.D. 11/04/2017 11:52 AM Dictated Date/Time: 11/04/2017 11:38 AM
[2017-11-04] MEDS ORDERED: MAGNESIUM HYDROXIDE SUSP 30 ML UDC PO PRN (12:30)
[2017-11-04] MEDS ORDERED: ONDANSETRON INJ 2 MG/ML 2 ML VIAL IV PRN (12:30)
[2017-11-04] MEDS ORDERED: ALUMINUM/MAGNESIUM/SIMETH (MAALOX MAX) 30 ML UDC PO PRN (12:30)
[2017-11-04] MEDS ORDERED: POLYETHYLENE (MIRALAX) 17 GM PACK PO PRN (12:30)
[2017-11-04 13:05] VITALS: O2SAT 94; Ht 180.3 cm; Wt 124.8 kg
[2017-11-04] MEDS ORDERED: MICONAZOLE NITRATE POWDER 43 GM ONE (13:20)
--- NOTE | 2017-11-04 13:25 | History and Physical ---
History & Physical Date & Time of Service: November 04, 2017 at 12:59 Chief Complaint: Catheter Clogged/Burning Pain Primary Care Physician: Jm Carrillo M.D. 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 Presents with bladder pain and c/o Pedraza being clogged. Initial labs are notable for a + UA, mildly elevated lactic acid and acute on chronic renal insufficiency. He denies fevers, SOB, CP, N/V. He does state that he has been generally weak and light-headed. Past Medical/Surgical History 1) LE paraparesis 2) Chronic urinary retention with Pedraza 3) DM II 4) Chronic LE cellulitis and ulcers 5) DM II 6) Chronic AF Family History No pertinent family history Social History Smoking Status: Former Smoker Drug Use: none Marital Status: Housing status: lives alone Occupational Status: retired Allergies Coded Allergies: No Known Allergies (Unverified , 11/04/17) Home Medications Scheduled Apixaban (Eliquis), 5 MG PO BID Aspirin (Aspirin Chewable), 81 MG PO DAILY Baclofen (Lioresal), 10 MG PO QID Brimonidine Tartrate (Brimonidine Tartrate), 1 DROP OPB BID Diltiazem Hcl Ext Rel (Tiazac), 240 MG PO DAILY Furosemide (Lasix), 80 MG PO Q2D Furosemide (Lasix), 40 MG PO Q2D Glipizide (Glipizide), 10 MG PO BID Latanoprost (Xalatan 0.005% Oph Freida), 1 DROP OPB DAILY Lisinopril (Zestril), 40 MG PO DAILY Metformin Hcl (Glucophage), 1,000 MG PO BID Methenamine Hippurate (Methenamine Hippurate), 1 GM PO QPM Metoprolol Tartrate (Lopressor) (Lopressor), 50 MG PO BID Multivitamin (Multivitamin), 1 TAB PO DAILY Prednisolone Acetate (Ophth) (Pred Forte 1% Oph), 1 DROP OPB DAILY Sertraline (Zoloft), Unknown Dose PO DAILY Timolol Maleate (Ophth) (Timoptic 0.25% Oph), 1 DROP OP BID Review of Systems Constitutional: + weakness, + fatigue, No fever, No chills, No sweats Eyes: No worsening of vision ENT: No hearing loss, No nasal symptoms Respiratory: No cough, No wheezing Cardiovascular: No chest pain, No orthopnea, No PND Abdomen: No pain, No nausea, No vomiting Musculoskeletal: No joint pain Genitourinary - Male: + dysuria, + urinary retention, + problem reported ( Chronic pedraza) Neurologic: + paralysis (LE paresis which is chronic) Psychiatric: No depression symptoms Endocrine: + fatigue Integumentary: + problem reported (Chronic LE redness and wounds) Allergic / Immunologic: No environmental allergies Physical Exam Vital Signs Date Time Temp Pulse Resp B/P (MAP) Pulse Ox O2 Delivery O2 Flow Rate FiO2 11/04/17 12:47 72 19 124/71 94 Room Air 11/04/17 11:49 81 11/04/17 11:45 74 20 94/63 92 Room Air 11/04/17 11:24 93 Room Air 11/04/17 10:50 36.7 81 16 129/79 95 Room Air General Appearance: WD/WN, no apparent distress Head: normocephalic Eyes: normal inspection ENT: normal ENT inspection, pharynx normal Neck: supple, no JVD Respiratory/Chest: chest non-tender, lungs clear Cardiovascular: no gallop, no JVD, + irregularly irregular Abdomen/GI: normal bowel sounds, non tender, soft, + pertinent finding ( Umbilical hernia is present) Back: normal inspection, no CVA tenderness Extremities/Musculoskelatal: no calf tenderness, + pertinent finding (LE display chronic cellulitis, a few eschars on toes - adequate cap refil without palpable pulses. BL edema and shallow ulcer on L flanagan) Neurologic/Psych: group burner machine II-XII nml as tested, no motor/sensory deficits, alert, oriented x 3 Skin: + pertinent finding (LE display chronic cellulitis, a few eschars on toes - adequate cap refil without palpable pulses. BL edema and shallow ulcer on L flanagan) Diagnostics Laboratory Results Results Past 24 Hours Test 11/04/17 10:50 11/04/17 10:54 11/04/17 11:05 Range/Units Urine Color YELLOW Urine Appearance TURBID CLEAR Urine pH 5.0 4.5-7.5 Urine Specific [place] 1.017 1.000-1.030 Urine Protein 2+ NEG Urine Glucose (UA) NEG NEG Urine Ketones NEG NEG Urine Occult Blood 3+ NEG Urine Nitrite NEG NEG Urine Bilirubin NEG NEG Urine Urobilinogen NEG NEG Urine Leukocyte Esterase LARGE NEG Urine WBC (Auto) >30 0-5 /hpf Urine RBC (Auto) 10-30 0-4 /hpf Urine Hyaline Casts (Auto) 1-5 0-5 /lpf Urine Epithelial Cells (Auto) 5-10 0-5 /lpf Urine Bacteria (Auto) 3+ NEG Urine Pathogenic Casts 0 /lpf White Blood Count 13.56 4.8-10.8 K/uL Red Blood Count 5.16 4.7-6.1 M/uL Hemoglobin 14.1 14.0-18.0 g/dL Hematocrit 42.4 42-52 % Mean Corpuscular Volume 82.2 80-100 fL Mean Corpuscular Hemoglobin 27.3 25-34 pg Mean Corpuscular Hemoglobin Concent 33.3 32-36 g/dl Platelet Count 253 130-400 K/uL Mean Platelet Volume 10.9 7.4-10.4 fL Neutrophils (%) (Auto) 76.1 % Lymphocytes (%) (Auto) 8.4 % Monocytes (%) (Auto) 9.4 % Eosinophils (%) (Auto) 5.8 % Basophils (%) (Auto) 0.1 % Neutrophils # (Auto) 10.31 1.4-6.5 K/uL Lymphocytes # (Auto) 1.14 1.2-3.4 K/uL Monocytes # (Auto) 1.28 0.11-0.59 K/uL Eosinophils # (Auto) 0.78 0-0.5 K/uL Basophils # (Auto) 0.02 0-0.2 K/uL RDW Standard Deviation 46.4 36.4-46.3 fL RDW Coefficient of Variation 15.4 11.5-14.5 % Immature Granulocyte % (Auto) 0.2 % Immature Granulocyte # (Auto) 0.03 0.00-0.02 K/uL Prothrombin Time 11.2 9.0-12.0 SECONDS Prothromb Time International Ratio 1.1 0.9-1.1 Activated Partial Thromboplast Time 31.0 21.0-31.0 SECONDS Partial Thromboplastin Ratio 1.2 Sodium Level 137 136-145 mmol/L Potassium Level 4.1 3.5-5.1 mmol/L Chloride Level 100 98-107 mmol/L Carbon Dioxide Level 29 21-32 mmol/L Anion Gap 8.0 3-11 mmol/L Blood Urea Nitrogen 61 7-18 mg/dl Creatinine 2.26 0.60-1.40 mg/dl Est Creatinine Clear Calc Drug Dose 39.7 ml/min Estimated GFR () 32.4 Estimated GFR (Non- 27.9 BUN/Creatinine Ratio 26.9 10-20 Random Glucose 237 70-99 mg/dl Calcium Level 8.3 8.5-10.1 mg/dl Magnesium Level 2.3 1.8-2.4 mg/dl Total Bilirubin 1.3 0.2-1 mg/dl Aspartate Amino Transf (AST/SGOT) 25 15-37 U/L Alanine Aminotransferase (ALT/SGPT) 19 12-78 U/L Alkaline Phosphatase 98 45-117 U/L Troponin I < 0.015 0-0.045 ng/ml Total Protein 6.9 6.4-8.2 gm/dl Albumin 2.8 3.4-5.0 gm/dl Globulin 4.1 2.5-4.0 gm/dl Albumin/Globulin Ratio 0.7 0.9-2 Thyroid Stimulating Hormone (TSH) 1.500 0.300-4.500 uIu/ml Bedside Lactic Acid Venous 1.94 0.90-1.70 mmol/L Microbiology Results 11/04/17 Blood Culture, Received Pending 11/04/17 Blood Culture, Received Pending 11/04/17 Urine Culture, Received Pending EKG AF, LPFB, RBBB which is new when compared to an EKG 09/08 Impression Assessment and Plan 72 y/o M Hx DM II, CKD II-III, AF, chronic LE wounds, 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 Presents with bladder pain and c/o Pedraza being clogged. Initial labs are notable for a + UA, mildly elevated lactic acid and acute on chronic renal insufficiency. He denies fevers, SOB, CP, N/V. He does state that he has been generally weak and light-headed. 1) Pedraza obstruction, ARF. Pedraza was changed and is functional. He will be provided with IVF we will trend his BMP. Lasix and INÉS are held pending AM labs. 2) UTI - last micro on record dates to 04/10 when he had pansensitive Enterobacter Aerogenes and Klebsiella. He received a dose of Zosyn in the ER. We will narrow to Ceftriaxone pending culture results. 3) AF - cont Eliquis and Diltiazem 4) LE wounds - chronic cellulitis - wound care is requested. 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 5) DM - placed on a SS 6) New RBBB on EKG - does not present with acute related issues - can likely follow-up as outpt Full code - fully anticoagulated Total time for this admit including review of labs, meds, imaging, records - discussion with pt and ER attending - 36 min Resuscitation Status VTE Prophylaxis Will order VTE Prophylaxis: Yes
[2017-11-04] MEDS: SODIUM CHLORIDE 0.9% 1000ML 1,000 ML IV SCH (14:20)
[2017-11-04 15:46] VITALS: BP 110/70; PULSE 76; TEMP 36.6; O2SAT 93
[2017-11-04] MEDS: BACLOFEN 10 MG TAB PO SCH ×2 (17:23→20:27)
[2017-11-04] MEDS ORDERED: COUGH DROP (SUGAR FREE) LOZ 24 LOZ/1 BOX LOZ ONE (17:25)
[2017-11-04] MEDS: INSULIN ASPART 100 UNITS/ML 3 ML PEN SC SCH ×2 (17:27→20:53)
[2017-11-04] MEDS ORDERED: NURSING DECISION MEDICATION ORDER SCH (17:30)
[2017-11-04] MEDS ORDERED: COUGH DROP (SUGAR FREE) LOZ 24 LOZ/1 BOX LOZ PRN (17:30)
[2017-11-04] MEDS: ACETAMINOPHEN 325 MG TAB PO PRN (19:15)
[2017-11-04] MEDS: BRIMONIDINE TARTRATE 0.2% 5ML OPB SCH (20:26)
[2017-11-04] MEDS: TIMOLOL MALEATE 0.25% OP SOLN 5 ML BTL OP SCH (20:26)
[2017-11-04] MEDS: METOPROLOL TARTRATE 50 MG TAB PO SCH (20:32)
[2017-11-04] MEDS: APIXABAN 2.5 MG TAB PO SCH (20:59)
[2017-11-04 23:46] VITALS: BP 98/66; PULSE 72; TEMP 36.7; O2SAT 93
[2017-11-05] MEDS: SODIUM CHLORIDE 0.9% 1000ML 1,000 ML IV SCH (00:33)
[2017-11-05] MEDS: ACETAMINOPHEN 325 MG TAB PO PRN ×3 (05:35→21:49)
[2017-11-05 05:48] LABS: HEMATOCRIT 40.4 % (42-52); HEMOGLOBIN 13.3 g/dL (14.0-18.0); MEAN CELL VOLUME 83.1 fL (80-100); MEAN CORPUSCULAR HEMOGLOBIN 27.4 pg (25-34); MEAN CORPUSCULAR HGB CONC 32.9 g/dl (32-36); MEAN PLATELET VOLUME 11.1 fL (7.4-10.4); PLATELET COUNT 230 K/uL (130-400); RED CELL DISTRIBUTION WIDTH CV 15.3 % (11.5-14.5); RED CELL DISTRIBUTION WIDTH SD 46.5 fL (36.4-46.3); WHITE BLOOD COUNT 9.09 K/uL (4.8-10.8)
[2017-11-05 06:12] LABS: CREATININE 1.5 mg/dl (0.60-1.40); POTASSIUM 3.7 mmol/L (3.5-5.1)
[2017-11-05 07:15] VITALS: BP_SYST 148; BP_SYST 157; BP_DIAS 80; BP_DIAS 85; PULSE 68; TEMP 36.5; O2SAT 94
[2017-11-05] MEDS: APIXABAN 2.5 MG TAB PO SCH ×2 (07:55→21:47)
[2017-11-05] MEDS: METOPROLOL TARTRATE 50 MG TAB PO SCH ×2 (07:55→20:22)
[2017-11-05] MEDS: BACLOFEN 10 MG TAB PO SCH ×4 (07:55→20:23)
[2017-11-05] MEDS: ASPIRIN 81 MG ECTAB PO SCH (07:56)
[2017-11-05] MEDS: PrednisoLONE ACET 1% OP SUSP 5 ML BTL OPB SCH (07:56)
[2017-11-05] MEDS: LATANOPROST 0.005% OP SOLN 2.5 ML BTL OPB SCH (07:56)
[2017-11-05] MEDS: DILTIAZEM HCL 120 MG EXT REL CAP PO SCH (07:56)
[2017-11-05] MEDS: TIMOLOL MALEATE 0.25% OP SOLN 5 ML BTL OP SCH ×2 (07:57→20:23)
[2017-11-05] MEDS: BRIMONIDINE TARTRATE 0.2% 5ML OPB SCH ×2 (07:57→20:23)
[2017-11-05] MEDS: INSULIN ASPART 100 UNITS/ML 3 ML PEN SC SCH ×4 (07:58→20:27)
--- NOTE | 2017-11-05 12:32 | Urology Consultation ---
History General Date of Service: November 05, 2017. Chief Complaint: AUR Primary Care Physician: Jm Carrillo M.D. History of Present Illness Patient with chronic retention, Multiple chronic issues, and major mobility issues. Has chronic pedraza catheter with monthly changes. Had issues with drainage. Presented to ER acutely ill with multiple issues and likely UTI. Pedraza found to be obstructed. Replacement catheter had good return of large amount of urine. Patient appears to have gone into retention due to malfunction vs self extraction and malpositioning. A large amount of sediment was noted with placement of the new catheter. Patient draining well now. Resting comfortable. Tolerating new catheter. NO major bleeding or other issues. Laboratory Labs were reviewed and are within normal limits unless listed below. Labs are available in the chart and at [facility] Problem List Medical Problems: (1) Acute renal failure Status: Acute (2) Catheter (urine) change required Status: Acute (3) Cellulitis Status: Acute (4) Complication of catheter Status: Acute (5) Complication of catheter Status: Acute (6) Complication of catheter Status: Acute (7) Complication of catheter Status: Acute (8) Complication of catheter Status: Acute (9) Complication of Pedraza catheter Status: Acute (10) History of sepsis Status: Acute (11) Lower extremity ulceration Status: Acute (12) Scrotal mass Status: Acute (13) Urinary retention Status: Acute (14) Urinary retention Status: Acute (15) Weakness Status: Acute Family History No pertinent family history Social History Hx Tobacco Use In Past Year?: No Marital status: Housing status: lives alone Occupation status: retired Allergies Coded Allergies: No Known Allergies (Unverified , 11/04/17) Medications Home Medications: Home Meds and Scripts Medications Dose Route/Sig Max Daily Dose Days Date Category Zoloft (Sertraline HCl) Unknown Strength Tab Unknown Dose PO DAILY 11/04/17 Reported Pred Forte 1% Oph (Prednisolone Acetate (Ophth)) 1 % [place] 1 Drop OPB DAILY 11/04/17 Reported Lasix (Furosemide) 40 Mg Tab 40 Mg PO Q2D 09/18/17 Reported Lopressor (Metoprolol Tartrate) 50 Mg Tab 50 Mg PO BID 04/13/17 Reported Methenamine Hippurate 1 Gm Tab 1 Gm PO QPM 04/13/17 Reported Glucophage (Metformin Hcl) 1,000 Mg Tab 1,000 Mg PO BID 04/13/17 Reported Lasix (Furosemide) 40 Mg Tab 80 Mg PO Q2D 04/13/17 Reported Eliquis (Apixaban) 5 Mg Tab 5 Mg PO BID 09/22/16 Reported Timoptic 0.25% Oph (Timolol Maleate (Ophth)) 0.25 % Freida 1 Drop OP BID 09/22/16 Reported Tiazac (Diltiazem HCl) 240 Mg Capcr 240 Mg PO DAILY 12/29/14 Reported Aspirin Chewable (Aspirin) 81 Mg Chew 81 Mg PO DAILY 12/29/14 Reported Multivitamin (Multivitamins) Tab 1 Tab PO DAILY 12/29/14 Reported Xalatan 0.005% Oph Freida (Latanoprost) 0.005 % Freida 1 Drop OPB DAILY 12/29/14 Reported Brimonidine Tartrate 0.2 % Freida 1 Drop OPB BID 12/29/14 Reported Glipizide 10 Mg Tab 10 Mg PO BID 12/29/14 Reported Zestril (Lisinopril) 40 Mg Tab 40 Mg PO DAILY 12/29/14 Reported Lioresal (Baclofen) 10 Mg Tab 10 Mg PO QID 12/29/14 Reported Inpatient Medications: Current Inpatient Medications Medications (Trade) Dose Ordered Sig/Gee Route Start Time Stop Time Status Last Admin Dose Admin Aspirin (Ecotrin Tab) 81 mg QAM PO 11/05/17 08:00 12/05/17 07:59 11/05/17 07:56 81 MG Baclofen (Lioresal Tab) 10 mg QID PO 11/04/17 17:00 12/04/17 16:59 11/05/17 07:55 10 MG Brimonidine Tartrate (Alphagan 0.2% Soln) 1 drops BID OPB 11/04/17 20:00 12/04/17 20:59 11/05/17 07:57 1 DROPS Diltiazem HCl (TIAzac CAP) 240 mg DAILY PO 11/05/17 08:00 12/05/17 08:59 11/05/17 07:56 240 MG Latanoprost (Xalatan Oph Soln) 1 drops DAILY OPB 11/05/17 08:00 12/05/17 08:59 11/05/17 07:56 1 DROPS Metoprolol Tartrate (Lopressor Tab) 50 mg BID PO 11/04/17 20:00 12/04/17 20:59 11/05/17 07:55 50 MG Prednisolone Acetate (Pred Forte 1% Oph Susp) 1 drops DAILY OPB 11/05/17 08:00 12/05/17 08:59 11/05/17 07:56 1 DROPS Timolol Maleate (Timoptic 0.25% Oph Soln) 1 drops BID OP 11/04/17 20:00 12/04/17 20:59 11/05/17 07:57 1 DROPS Apixaban (Eliquis Tab) 5 mg BID PO 11/04/17 20:00 12/04/17 19:59 11/05/17 07:55 5 MG Acetaminophen (Tylenol Tab) 650 mg Q4H PRN PO 11/04/17 12:30 12/04/17 12:29 11/05/17 05:35 650 MG Al Hydrox/Mg Hydrox/Simethicone (Maalox Max Susp) 15 ml Q4H PRN PO 11/04/17 12:30 12/04/17 12:29 Magnesium Hydroxide (Milk Of Magnesia Susp) 30 ml Q6H PRN PO 11/04/17 12:30 12/04/17 12:29 Polyethylene (Miralax Powder Packet) 17 gm DAILY PRN PO 11/04/17 12:30 12/04/17 12:29 Ondansetron HCl (Zofran Inj) 4 mg Q6H PRN IV 11/04/17 12:30 12/04/17 12:29 Insulin Aspart (novoLOG ASPART) SLIDING SCALE G... ACHS SC 11/04/17 16:00 12/04/17 15:59 11/04/17 20:53 1 UNITS Menthol (Nice Edward) 1 edward PRN PRN EDWARD 11/04/17 17:30 12/04/17 17:29 Review of Systems Review of Systems All Other Systems: Reviewed and Negative (All reviewed. Pertinent values in HPI. ) Physical Exam Vital Signs: Vital Signs Past 12 Hours Date Time Temp Pulse Resp B/P (MAP) Pulse Ox O2 Delivery O2 Flow Rate FiO2 11/05/17 07:15 36.5 68 20 157/80 (105) 94 Room Air 148/85 (106) 11/05/17 00:00 Room Air 11/04/17 23:46 36.7 72 20 98/66 (39) 93 Room Air Physical Exam: General Appearance: WD/WN, no apparent distress Eyes: bilateral eyes normal inspection ENT: hearing grossly normal Neck: no JVD Respiratory/Chest: no respiratory distress, no accessory muscle use Cardiovascular: regular rate, rhythm Gastrointestinal: Abdomen: pertinent finding (Distended) Bladder: normal bladder Renal: normal renal Genitourinary - Male: Urethral Meatus: pertinent finding (Catheter in place draining clear yellow urine. 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 2. Bilateral Hydronephrosis 3. KASSANDRA on CKD 4. Acute Infection, likely UTI. 5. Multiple Chronic issues including Cellulitis Replacement catheter draining well. Likely issues with catheter led to obstruction. [place] may be acute vs chronic. As bilateral with large volume retention, likely related to retention episode. Possible chronic from chronic retention issues. Imaging was reviewed and interpreted by myself. No obvious stones or other obstruction. Patient undergoing hydration and monitoring. Broad spectrum abx coverage for possible UTI vs Pyelonephritis. Will monitor closely. Will need to monitor for disruption of catheter position. Could consider intermittent catheters when transitioning back to keno terminal operator care , However patient has been doing well with catheter for approx 6 years. Monitor and may need to reassess hydro based on clinical picture.
--- NOTE | 2017-11-05 13:55 | Progress Note ---
Subjective Date of Service: November 05, 2017. Subjective this pt is doing well now that catheter has been changed, he has no back or abdominal pain, there was discussion of b/l hydronephrosis seen on CT urology is employing watchful waiting Problem List Medical Problems: (1) Acute renal failure Status: Acute (2) Catheter (urine) change required Status: Acute (3) Cellulitis Status: Acute (4) Complication of catheter Status: Acute (5) Complication of catheter Status: Acute (6) Complication of catheter Status: Acute (7) Complication of catheter Status: Acute (8) Complication of catheter Status: Acute (9) Complication of Pedraza catheter Status: Acute (10) History of sepsis Status: Acute (11) Lower extremity ulceration Status: Acute (12) Scrotal mass Status: Acute (13) Urinary retention Status: Acute (14) Urinary retention Status: Acute (15) Weakness Status: Acute Review of Systems Constitutional: No fever, No chills, No weakness, No fatigue Respiratory: No cough, No shortness of breath Cardiac: No chest pain, No edema Abdomen: No pain, No nausea, No vomiting, No diarrhea Male : No dysuria, No incontinence Psychiatric: No depression symptoms, No anxiety Objective Vital Signs Date Time Temp Pulse Resp B/P (MAP) Pulse Ox O2 Delivery O2 Flow Rate FiO2 11/05/17 08:00 Room Air 11/05/17 07:15 36.5 68 20 157/80 (105) 94 Room Air 148/85 (106) 11/05/17 00:00 Room Air 11/04/17 23:46 36.7 72 20 98/66 (77) 93 Room Air 11/04/17 20:00 Room Air 11/04/17 16:00 Room Air 11/04/17 15:46 36.6 76 20 110/70 (83) 93 Room Air Physical Exam General Appearance: WD/WN, + mild distress Eyes: normal inspection, sclerae normal Neck: supple, no JVD Respiratory/Chest: chest non-tender, lungs clear, normal breath sounds Cardiovascular: regular rate, rhythm, no murmur Abdomen: normal bowel sounds, non tender, soft Neurologic/Psychiatric: alert, oriented x 3 Laboratory Results Last 24 Hours Test 11/04/17 17:02 11/04/17 20:00 11/05/17 05:32 11/05/17 07:52 Bedside Glucose 240 mg/dl 178 mg/dl 156 mg/dl White Blood Count 9.09 K/uL Red Blood Count 4.86 M/uL Hemoglobin 13.3 g/dL Hematocrit 40.4 % Mean Corpuscular Volume 83.1 fL Mean Corpuscular Hemoglobin 27.4 pg Mean Corpuscular Hemoglobin Concent 32.9 g/dl RDW Standard Deviation 46.5 fL RDW Coefficient of Variation 15.3 % Platelet Count 230 K/uL Mean Platelet Volume 11.1 fL Sodium Level 143 mmol/L Potassium Level 3.7 mmol/L Chloride Level 107 mmol/L Carbon Dioxide Level 30 mmol/L Anion Gap 6.0 mmol/L Blood Urea Nitrogen 40 mg/dl Creatinine 1.50 mg/dl Est Creatinine Clear Calc Drug Dose 59.9 ml/min Estimated GFR () 53.1 Estimated GFR (Non- 45.9 BUN/Creatinine Ratio 26.8 Random Glucose 151 mg/dl Calcium Level 8.0 mg/dl Magnesium Level 2.3 mg/dl Test 11/05/17 11:27 Bedside Glucose 245 mg/dl Assessment and Plan 72 y/o M presents with obstructive uropathy with concern for a pedraza catheter associated UTi poa, Hx DM II, CKD II-III, AF, chronic LE wounds, 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 Pedraza obstruction, and acute kidney injury relived when pedraza was changed IVF and inproved BMP. Lasix and INÉS are held pending following blood pressure UTI - last micro on record dates to 04/10 when he had pansensitive Enterobacter Aerogenes and Klebsiella. He received a dose of Zosyn in the ER. continue with Ceftriaxone Atrial fibrillation rate controlled full anticoagulation with Eliquis and continue Diltiazem, New RBBB on EKG - does not present with acute related issues - can likely follow-up as outpt LE wounds - chronic cellulitis - wound care is requested. console operator referred to on DC. DM - placed on a SSI Full code - fully anticoagulated Total time for this admit including review of labs, meds, imaging, records - discussion with pt and ER attending - 36 min
[2017-11-05 15:42] VITALS: BP 139/79; PULSE 77; TEMP 36.5; O2SAT 93
[2017-11-05 23:09] VITALS: BP 124/77; PULSE 68; TEMP 36.4; O2SAT 92
[2017-11-06 07:02] VITALS: BP 157/84; PULSE 78; TEMP 36; O2SAT 94
[2017-11-06] MEDS: DILTIAZEM HCL 120 MG EXT REL CAP PO SCH (08:15)
[2017-11-06] MEDS: ASPIRIN 81 MG ECTAB PO SCH (08:15)
[2017-11-06] MEDS: APIXABAN 2.5 MG TAB PO SCH (08:15)
[2017-11-06] MEDS: BACLOFEN 10 MG TAB PO SCH ×2 (08:16→12:43)
[2017-11-06] MEDS: METOPROLOL TARTRATE 50 MG TAB PO SCH (08:16)
[2017-11-06] MEDS: PrednisoLONE ACET 1% OP SUSP 5 ML BTL OPB SCH (08:17)
[2017-11-06] MEDS: TIMOLOL MALEATE 0.25% OP SOLN 5 ML BTL OP SCH (08:17)
[2017-11-06] MEDS: BRIMONIDINE TARTRATE 0.2% 5ML OPB SCH (08:17)
[2017-11-06] MEDS: LATANOPROST 0.005% OP SOLN 2.5 ML BTL OPB SCH (08:18)
[2017-11-06] MEDS: INSULIN ASPART 100 UNITS/ML 3 ML PEN SC SCH ×2 (08:20→12:45)
[2017-11-06 08:53] LABS: MEAN CORPUSCULAR HGB CONC 32.9 g/dl (32-36); MEAN PLATELET VOLUME 11.5 fL (7.4-10.4); PLATELET COUNT 254 K/uL (130-400)
[2017-11-06 09:16] LABS: HEMATOCRIT 44.7 % (42-52); HEMOGLOBIN 14.7 g/dL (14.0-18.0); MEAN CELL VOLUME 83.4 fL (80-100); MEAN CORPUSCULAR HEMOGLOBIN 27.4 pg (25-34); RED CELL DISTRIBUTION WIDTH CV 15.2 % (11.5-14.5); RED CELL DISTRIBUTION WIDTH SD 46.2 fL (36.4-46.3); WHITE BLOOD COUNT 9.77 K/uL (4.8-10.8)
[2017-11-06 09:19] LABS: BASO % 0.4 %; BASO ABS # 0.04 K/uL (0-0.2); EOS ABS # 0.49 K/uL (0-0.5); IG# 0.05 K/uL (0.00-0.02); LYMPH % 11.3 %; MONO ABS # 0.88 K/uL (0.11-0.59); NEUT % 73.8 %; NEUT ABS # 7.21 K/uL (1.4-6.5)
[2017-11-06 09:31] LABS: CALCIUM 8.5 mg/dl (8.5-10.1)
[2017-11-06 09:35] LABS: CREATININE 1.14 mg/dl (0.60-1.40)
[2017-11-06] MEDS ORDERED: CPR500 PO (11:40)
--- NOTE | 2017-11-06 11:41 | Discharge Instructions ---
Discharge Instructions Date of Service November 06, 2017. Admission Reason for Admission: Urinary Retention, Uti Discharge Discharge Diagnosis / Problem: blocked urinary catheter, urine infection Discharge Goals Goal(s): Diagnostic testing, Therapeutic intervention Activity Recommendations Activity Limitations: as noted below . Current Hospital Diet Patient's current hospital diet: AHA Diet (Heart Healthy), Diabetes Type 2 Diet Discharge Diet Recommended Diet: Diabetes Type 2 Diet Pending Studies Studies pending at discharge: yes List of pending studies: blood cultures are negative at the time of discharge if that changes You will be phoned Medical Emergencies . Who to Call and When: Medical Emergencies: If at any time you feel your situation is an emergency, please call 911 immediately. . Non-Emergent Contact Non-Emergency issues call your: Primary Care Provider, Specialist (wound care clinic) Call Non-Emergent contact if: temperature is above 101, your pain is unusual for you . . "Provider Documentation" section prepared by Bolivar Mares. .
[2017-11-06] MEDS ORDERED: CEFTRIAXONE SOD INJ 1 GM in DEXTROSE 5% ADD-VANTAGE 50ML 50 ML IV SCH (13:00)
[2017-11-06 13:56] VITALS: BP 157/84; PULSE 78; TEMP 36; O2SAT 94
[2017-11-06] MEDS: ACETAMINOPHEN 325 MG TAB PO PRN (14:39)
--- NOTE | 2017-11-06 15:52 | Discharge Summary ---
Discharge Summary Date of Service November 06, 2017. 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 Consultations: urology consult Medication Reconciliation New Medications: Ciprofloxacin (Ciprofloxacin HCl) 500 Mg Tab 500 MG PO BID, #10 DOSE Continued Medications: Apixaban (Eliquis) 5 Mg Tab 5 MG PO BID, TAB Aspirin (Aspirin Chewable) 81 Mg Chew 81 MG PO DAILY, TAB Baclofen (Lioresal) 10 Mg Tab 10 MG PO QID Brimonidine Tartrate (Brimonidine Tartrate) 0.2 % Freida 1 DROP OPB BID Diltiazem Hcl Ext Rel (Tiazac) 240 Mg Capcr 240 MG PO DAILY, CAP Furosemide (Lasix) 40 Mg Tab 80 MG PO Q2D, TAB Furosemide (Lasix) 40 Mg Tab 40 MG PO Q2D, TAB Glipizide (Glipizide) 10 Mg Tab 10 MG PO BID Latanoprost (Xalatan 0.005% Oph Freida) 0.005 % Freida 1 DROP OPB DAILY Lisinopril (Zestril) 40 Mg Tab 40 MG PO DAILY, TAB Metformin Hcl (Glucophage) 1,000 Mg Tab 1000 MG PO BID, TAB Methenamine Hippurate (Methenamine Hippurate) 1 Gm Tab 1 GM PO QPM Metoprolol Tartrate (Lopressor) (Lopressor) 50 Mg Tab 50 MG PO BID, TAB Multivitamin (Multivitamin) Tab 1 TAB PO DAILY, TAB Prednisolone Acetate (Ophth) (Pred Forte 1% Oph) 1 % Geovanna 1 DROP OPB DAILY Sertraline (Zoloft) Unknown Strength Tab Unknown Dose PO DAILY, TAB Timolol Maleate (Ophth) (Timoptic 0.25% Oph) 0.25 % Freida 1 DROP OP BID, BTL Discharge Exam Review of Systems: Constitutional: No fever, No chills Respiratory: No cough, No sputum Neurologic: + paralysis, + weakness (baseline according to pt), No memory loss Physical Exam: General Appearance: WD/WN, + mild distress (baseline weakness) Neck: supple, no adenopathy Respiratory/Chest: chest non-tender, lungs clear Hospital Course 72 y/o M presents with obstructive uropathy with concern for a pedraza catheter associated UTi poa, Hx DM II, CKD II-III, AF, chronic LE wounds, 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 Pedraza obstruction, and acute kidney injury relived when pedraza was changed IVF and improved will resume home medications UTI - last micro on record dates to 04/10 when he had pansensitive Enterobacter Aerogenes and Klebsiella. He received a dose of Zosyn in the ER. Ceftriaxone as inpatient and will be on Cipro based on previous sensitivities for additional week Atrial fibrillation rate controlled full anticoagulation with Eliquis and continue Diltiazem, New RBBB on EKG - does not present with acute related issues - recommend follow-up as outpt LE wounds - chronic cellulitis - wound care is requested. will follow up with outpt wound care in one week DM - resume oral home medications Full code - fully anticoagulated Total time for this admit including review of labs, meds, imaging, records - discussion with pt and ER attending - 36 min Total Time Spent: Greater than 30 minutes This includes examination of the patient, discharge planning, medication reconciliation, and communication with other providers. Discharge Instructions Please refer to the electronic Patient Visit Report (Discharge Instructions) for additional information.
== END 2017-11-06 16:20 | disposition home or self-care (01) | DRG 699 ==
LOC: EDBD 10:33 → C.EDA 10:35 → C.4E 12:32 → ENRESERV 12:56
PROVIDERS: ADMIT Internal Medicine; ATTEND Internal Medicine
DX: T83.091A Other mechanical complication of indwelling urethral catheter, initial encounter (principal); N39.0 Urinary tract infection, site not specified; N17.9 Acute kidney failure, unspecified; G82.20 Paraplegia, unspecified; L97.929 Non-pressure chronic ulcer of unspecified part of left lower leg with unspecified severity; L97.919 Non-pressure chronic ulcer of unspecified part of right lower leg with unspecified severity; N13.30 Unspecified hydronephrosis; L03.115 Cellulitis of right lower limb; L03.116 Cellulitis of left lower limb; I48.91 Unspecified atrial fibrillation; Y84.6 Urinary catheterization as the cause of abnormal reaction of the patient, or of later complication, without mention of misadventure at the time of the procedure; Y92.019 Unspecified place in single-family (private) house as the place of occurrence of the external cause; N18.3 Chronic kidney disease, stage 3 (moderate); Z87.891 Personal history of nicotine dependence; Z79.84 Long term (current) use of oral hypoglycemic drugs; R33.9 Retention of urine, unspecified; N32.89 Other specified disorders of bladder; I45.10 Unspecified right bundle-branch block

== ENCOUNTER 2018-01-23 05:13 | Day surgery (SDC) | payer OTHER ==
[~2018-01-23] VITALS: Ht 180.3 cm; Wt 107.5 kg
[2018-01-23] VITALS (10 sets, daily range): BP systolic 144–173; BP diastolic 85–99; PULSE 70–89; TEMP 36–37.1; O2SAT 92–95; Ht 180.3 cm; Wt 107.5 kg
[~2018-01-23 05:13] MED LIST changes: -GLIP10TA10 PO; +INSDGIPEN SC; -METF-384 PO; -METO50TA16 PO; -MULTCAP33 PO; -POLY335019 PO; +PRED1SUS3 OPB; +SERT25TA PO; +TPRSR25 PO
[2018-01-23] MEDS ORDERED: GLIP10TA3 PO (05:47)
[2018-01-23] MEDS ORDERED: DORZ2SOL19 OP (05:48)
[2018-01-23] MEDS ORDERED: METF-384 PO (05:50)
[2018-01-23] MEDS ORDERED: SERT50TA PO (05:51)
[2018-01-23] MEDS ORDERED: METO50TA16 PO (05:51)
[2018-01-23] MEDS ORDERED: ZOLP10TA6 PO (05:55)
[2018-01-23] MEDS ORDERED: SODIUM CHLORIDE 0.9% 1000ML 1,000 ML IV SCH ×2 (06:00→09:57)
[2018-01-23] MEDS ORDERED: FENTANYL CITRATE INJ 50 MCG/1 ML 2 ML VIAL ONE (07:25)
[2018-01-23] MEDS ORDERED: HEPARIN SOD (PORCINE) 1000 UNIT/ML 10 ML VIAL ONE (07:25)
[2018-01-23] MEDS ORDERED: MIDAZOLAM HCL 1 MG/ML 2ML VIAL ONE (07:25)
[2018-01-23] MEDS ORDERED: NITROGLYCERIN/D5W 100MCG/ML 20ML SYR ONE (07:30)
[2018-01-23] MEDS ORDERED: NITROGLYCERIN 5 MG/ML 10 ML VIAL ONE (07:36)
[2018-01-23] MEDS ORDERED: NiCARDipine HCL INJ 2.5 MG/ML 10 ML AMP ONE (07:36)
--- NOTE | 2018-01-23 07:36 | History & Physical Bridge Note ---
H&P Re-Evaluation Bridge Note: I have examined the patient, reviewed the History & Physical and in the interval since the performance of the History & Physical I have noted the following changes of clinical significance: No changes noted
--- NOTE | 2018-01-23 07:36 | Pre Sedation Assessment ---
Pre Sedation Assessment General Date of Sedation: Jan 23, 2018. Vital Signs Past 12 Hours Date Time Temp Pulse Resp B/P (MAP) Pulse Ox O2 Delivery O2 Flow Rate FiO2 01/23/18 05:45 37.1 81 20 173/92 (119) 94 Room Air Review Cardiovascular: regular rate, rhythm, no edema Lungs: chest non-tender, lungs clear Pre-Sedation Airway Assessment Smoking Status: Former Smoker Hx of Sleep Apnea: No Short Thick Neck: No Mallampati Classification: Class III ASA Classification: Class III NPO Status Date of Last Intake of Fluids: Jan 22, 2018 Time of Last Intake of Fluids: 1999 Date of Last Intake of Solids: Jan 22, 2018 Time of Last Intake of Solids: 1700 Procedure Planning Contraindications for Sedation: None Current Medications Reviewed: Yes Notes The planned sedation has been discussed with the patient. Informed Consent was obtained. I have identified the patient, determined the appropriateness of sedation and have assessed the patient immediately prior to the procedure. All medicine(s) and interventions are by my order.
[2018-01-23] MEDS ORDERED: FENTANYL CITRATE INJ 50 MCG/1 ML 2 ML VIAL IV ONE (08:33)
[2018-01-23] MEDS ORDERED: MIDAZOLAM HCL 1 MG/ML 2ML VIAL IV ONE (08:33)
[2018-01-23] MEDS ORDERED: LIDOCAINE HCL 1% 20 ML VIAL SQ ONE (08:33)
[2018-01-23] MEDS ORDERED: HEPARIN SOD (PORCINE) 1000 UNIT/ML 10 ML VIAL IV ONE (09:12)
[2018-01-23] MEDS ORDERED: NITROGLYCERIN 5 MG/ML 10 ML VIAL IART ONE (09:28)
[2018-01-23] MEDS ORDERED: IODIXANOL (VISIPAQUE) 270 MG/ML 150ML IV ONE (09:45)
--- NOTE | 2018-01-23 09:55 | Post Sedation Assessment ---
Post Sedation Assessment General Date of Sedation Jan 23, 2018. Vital Signs: Vital Signs Past 12 Hours Date Time Temp Pulse Resp B/P (MAP) Pulse Ox O2 Delivery O2 Flow Rate FiO2 01/23/18 09:51 83 20 143/96 98 Oxymask 3 01/23/18 09:46 74 18 149/94 97 Oxymask 3 01/23/18 09:41 87 18 151/93 98 Oxymask 3 01/23/18 09:36 86 18 148/98 97 Oxymask 3 01/23/18 09:31 83 17 134/98 97 Oxymask 3 01/23/18 09:26 80 19 156/94 98 Oxymask 3 01/23/18 09:21 82 14 165/98 98 Oxymask 3 01/23/18 09:16 74 12 159/96 98 Oxymask 3 01/23/18 09:11 79 12 166/108 98 Oxymask 3 01/23/18 09:06 74 12 148/110 98 Oxymask 3 01/23/18 09:01 76 12 164/106 98 Oxymask 3 01/23/18 08:56 75 14 162/104 98 Oxymask 3 01/23/18 08:51 84 14 156/110 98 Oxymask 3 01/23/18 08:46 72 14 159/98 98 Oxymask 3 01/23/18 08:41 72 20 165/96 98 Oxymask 3 01/23/18 08:36 82 18 163/100 99 Oxymask 3 01/23/18 08:31 84 22 168/100 99 Oxymask 3 01/23/18 08:15 76 22 185/109 99 Oxymask 3 01/23/18 05:45 37.1 81 20 173/92 (119) 94 Room Air Post Procedure Recovery Score Activity: (1) Moves 2 extremities * Respiration: (2) Deep breath/cough Circulation: (2) +/-20% PreAnes Value Consciousness: (2) Fully Awake Oxygen Saturation: (1) O2 needed for >90% Post Anesthesia Score: 8 Discharge Sedation Level of Care: Fast Track Phase II Post Sedation Plan On clinical assessment, the patient appears to have tolerated the sedation without complications. Patient is recovering as anticipated. Patient will continue to be monitored by nursing and may be discharged when sedation discharge criteria are met per below protocol. Upon Completions of procedure and additional 15 minutes continue every 5 minute vital signs and the P.A.R. score; then discharge to a Phase I or Fast Track to Phase II per the following guidelines: * Discharge Patient to appropriate Phase II area if PAR is 8 or greater or return to pre- procedure baseline. The post - procedure orders will be as directed. * If PAR score is less than 8 or not return to pre-procedure baseline then patient will follow Phase I monitoring till PAR is reached for Phase II. The Phase I may be done in procedure room or may call to secure a Phase I area. * If naloxone or flumazenil are used for reversal, hold in Phase I for an additional 60 -120 minutes before discharge to Phase II. Please call the Sedation Physician to re-evaluate and complete post-note for discharge to Phase II area. Do NOT discharge from procedure sedation or Phase 1 until post- sedation evaluation note is complete by procedure /sedation MD Sedation Discharge Instructions to be given to the patient at discharge to home.
--- NOTE | 2018-01-23 09:56 | [facility] Post Operative Brief Note ---
Immediate Operative Summary Operative Date Jan 23, 2018. Pre-Operative Diagnosis Peripheral Artery Disease Post-Operative Diagnosis Peripheral Artery Disease Procedure(s) Performed Right Lower Extremity Angiogram, Percutaneous Transluminal Angioplasty, Mechanical Closure of Left Femoral Artery, Moderate Sedation From [address] Paul Spinner Open End Surgeon(s) None Estimated Blood Loss 20 Findings Consistent with Post-Op Diagnosis Specimens None Drains None Anesthesia Type IV Sedat Cons RN Only Complication(s) none Disposition Disposition: Recovery Room / PACU
[2018-01-23] MEDS ORDERED: CLOPIDOGREL BISULFATE 300 MG TAB PO STA (09:57)
[2018-01-23] MEDS ORDERED: ACETAMINOPHEN 325 MG TAB PO PRN (10:00)
[2018-01-23] MEDS ORDERED: NURSING VERBAL MED ORDER SCH (11:15)
[2018-01-23] MEDS ORDERED: BACLOFEN 10 MG TAB PO SCH (12:00)
[2018-01-23] MEDS ORDERED: PLV75 PO (13:00)
--- NOTE | 2018-01-23 13:03 | Discharge Instructions ---
Discharge Instructions Procedure Procedure Date: Jan 23, 2018. Reason for Visit: Severe B/L Lower Extremity Peripheral Artery Disea. Discharge Discharge Date: Jan 23, 2018. Discharge Diagnosis: Peripheral artery disease Last Recorded Wt (Kilograms): 107.5 Anesthesia Post Anesthesia Instructions: If you have had General Anesthesia or IV Sedation: * Do not drive today. * Resume driving when surgeon permits. * Do not make important decisions or sign legal documents today. * Call surgeon for: 1. Temperature elevations greater than 101 degrees F. 2. Uncontrollable pain. 3. Excessive bleeding. 4. Persistent nausea and vomiting. 5. Medication intolerance (nausea, vomiting or rash). * For nausea and vomiting use only clear liquids such as: tea, soda, bouillon until nausea subsides, then gradually increase diet as tolerated. * If you have any concerns or questions, call your surgeon's office. If physician is unavailable and it is an emergency, call 911 or go to the nearest emergency room. Instructions Activity Recommendations: limitations as noted below Recommended Home Diet: low sodium, low cholesterol Allergies: Coded Allergies: No Known Allergies (Unverified , 01/23/18) Provider Instructions HOLD METFORMIN FOR 48 HOURS POST PROCEDURE THAN RESUME PREVIOUSLY PRESCRIBED REPLACE ASPIRIN WITH CLOPIDOGREL FOR 1 MONTH. RESUME APIXABAN STARTING TOMORROW MORNING. Follow Up Additional Instructions: ACTIVITY RECOMMENDATIONS: It is common to feel weak and fatigue for a few days. * Do not drive or operate any motorized equipment for the next three days. * Limit stair usage (2 or 3 trips a day only) for the next three days. * Do not lift anything heavier than 10 pounds for the next three days. * Do not engage in vigorous exercise or any sports for the next five days. * You may shower the day after your procedure, but do not immerse the area for three days. Cleanse the site gently with soap and water. SPECIAL CARE INSTRUCTIONS: * You may replace the pressure dressing or band-aid the morning after the procedure. * After your procedure, it is normal to have a small bruise or small lump at the site. Examine your site daily for any change in the bruise or lump, redness, swelling, drainage or numbness. Notify your doctor if any change. BLEEDING: * If there is a small amount of bleeding at the site, lie down and apply firm pressure with a clean cloth for ten minutes. When the bleeding stops, lie quietly keeping the procedure limb straight for six hours. Notify your doctor as soon as possible. * If the bleeding does not stop after ten minutes or if there is a large amount of bleeding or spurting, call 911 immediately. Continue to lie down and hold firm pressure until help arrives. SKIN IRRITATION: * You may experience some redness and/or swelling in the area where radiation was administered. If any skin irritation occurs, please contact your family physician. FOLLOW UP VISIT: Keep any scheduled doctor appointments. Follow-up with: Dr. Paul in 2-3 weeks. Baldemar Serratoy Recommendations: Call your doctor if: * Temperature above 101 degrees * Pain not relieved by pain medicine ordered * There is increased drainage or redness from any incision * You have any unanswered questions or concerns. Your Doctors Instructions noted above were prepared by provider Fernandez Paul. Patient Signature Section: Patient Instructions Signature Page Guan[place]ito Tran Patient (or Guardian) Signature/Date: I have read and understand the instructions given to me by my caregivers. Caregiver/RN/Doctor Signature/Date: The above-named patient and/or guardian has received patient instructions on this date. + Original Patient Signature Page (only) stays with chart. Please make copy for patient.
[2018-01-24] MEDS ORDERED: CLOPIDOGREL BISULFATE 75 MG TAB PO SCH (09:00)
[2018-01-30] MEDS ORDERED: CLOP1TAB5 PO (09:11)
--- NOTE | 2018-02-11 00:36 | [facility] Operative Report ---
Operative Report Operative Date Jan 23, 2018. Pre-Operative Diagnosis Peripheral Artery Disease Post-Operative Diagnosis Peripheral Artery Disease Procedure(s) Performed Right Lower Extremity Angiogram, Percutaneous Transluminal Angioplasty, Mechanical Closure of Left Femoral Artery, Moderate Sedation From [address] Paul Towboat Operator Surgeon(s) None Estimated Blood Loss 20 Findings Left lower extremity: Common iliac - Minimal disease External iliac - Minimal disease Internal iliac - 70% proximal stenosis BUYER BROKER - High bifurcation, mild disease Profunda - Mild disease SFA - 20-30% ostial stenosis Distal SFA/popliteal - 50-60% disease Distal popliteal - 99% stenosis prior to take-off of AARON TPT - mild disease AT - mild disease proximal, occluded distally PT - minimal disease to the foot Peroneal - severe diffuse disease Right lower extremity: Common iliac - Minimal disease External iliac - Mild disease Internal iliac - 30% proximal stenosis BUYER BROKER - 30% disease Profunda - Minimal disease SFA - 30-40% diffuse disease Popliteal - 30-40% disease TPT - 90+% stenosis AT - mild diffuse disease, occluded distally prior to PDA PT - 90+% proximal; distally gives collaterals to distal peroneal Peroneal - occluded proximally Specimens None Drains None Anesthesia Type IV Sedat Cons RN Only Complication(s) none Disposition Recovery Room / PACU Description of Procedure Left common femoral access obtained, short 5Fr sheath place RLE angiogram performed with RIM catheter and glidecatheter placed into SFA 6Fr 65cm destination sheath placed to right SFA 0.14 Command wire, quickcross used to navigate wire into distal ASSISTANT TECHNICIAN TPT, proximal ASSISTANT TECHNICIAN dilated iwth 3.0 x 120mm balloon. Post procedure good angiographic result, no evidence of dissection and good 2 vessel run-off to the foot. Summary: 1. Left lower extremity moderate distal SFA disease with subtotal distal popliteal occlusion and distal 2 vessel runoff (occluded peroneal). 2. Right lower extremity with mild to moderate distal SFA/popliteal disease and severe 90+% sequential lesions in TPT/proximal ASSISTANT TECHNICIAN with 2 vessel runoff to the foot. 3. Successful ASSISTANT TECHNICIAN of right lower extremity TPT and proximal ASSISTANT TECHNICIAN. I attest to the content of the Intraoperative Record and any orders documented therein. Any exceptions are noted below.
== END 2018-01-23 14:05 | disposition home or self-care (01) ==
LOC: C.ACU 05:13
PROVIDERS: ATTEND Internal Medicine Interventional Cardiology
DX: I73.9 Peripheral vascular disease, unspecified (principal); E11.51 Type 2 diabetes mellitus with diabetic peripheral angiopathy without gangrene; I48.0 Paroxysmal atrial fibrillation; Z79.01 Long term (current) use of anticoagulants; I10 Essential (primary) hypertension; G83.9 Paralytic syndrome, unspecified; Z99.3 Dependence on wheelchair

== ENCOUNTER 2018-08-25 22:37 | Inpatient (IN) ==
[2018-08-25] MEDS ORDERED: dilTIAZem HCl 5 MG/ML 5 ML VIAL IV STA (22:51)
[2018-08-25] MEDS ORDERED: ALBUT/IPRATROP 3MG/0.5MG NEB 3 ML VIAL ONE (22:56)
[2018-08-25 23:15] LABS: Basophils # (auto) 0.02 K/uL (0-0.2); Basophils % (auto) 0.1 %; Eosinophils # (auto) 0.26 K/uL (0-0.5); Eosinophils % (auto) 1.4 %; Hematocrit (blood only) 45.7 % (42-52); Hemoglobin 14.4 g/dL (14.0-18.0); Immature Granulocytes # (auto) 0.07 K/uL (0.00-0.02); Immature Granulocytes % (auto) 0.4 %; Lymphocytes # (auto) 0.87 K/uL (1.2-3.4); Lymphocytes % (auto) 4.6 %; Mean Corpuscular Hgb Conc 31.5 g/dL (32-36); Mean Corpuscular Volume 82.8 fL (80-100); Mean Platelet Volume 11.3 fL (7.4-10.4); Monocytes # (auto) 1.04 K/uL (0.11-0.59); Monocytes % (auto) 5.5 %; Neutrophils # (auto) 16.52 K/uL (1.4-6.5); Platelet Count 252 K/uL (130-400); RDW Coefficient of Variation 16.5 % (11.5-14.5); RDW Standard Deviation 49.7 fL (36.4-46.3); Red Blood Count 5.52 M/uL (4.7-6.1); White Blood Count 18.78 K/uL (4.8-10.8)
[2018-08-25] MEDS ORDERED: PIPERACILLIN/TAZOBACTAM 4.5 GM/120 ML BAG IV ONE (23:38)
[2018-08-25] MEDS ORDERED: LEVOFLOXACIN/D5W 750 MG/150 ML BAG IV STA (23:38)
[2018-08-25] MEDS ORDERED: LEVALBUTEROL 0.31MG/3 ML VIAL NEB STA (23:38)
[2018-08-25] MEDS ORDERED: PIPERACILL/TAZOBAC CONSULT ACTIVE PRN (23:38)
[2018-08-25 23:42] LABS: Albumin Level 2.8 gm/dl (3.4-5.0); BUN Creatinine Ratio 29.4 (10-20); Blood Urea Nitrogen 25 mg/dl (7-18); Calcium 9.1 mg/dl (8.5-10.1); Carbon Dioxide 30 mmol/L (21-32); Chloride 100 mmol/L (98-107); Creatinine Clr Calc Pharmacy 96.8 ml/min; Est GFR (African American) 100.2; Est GFR (Non-African American) 86.4; Glucose 214 mg/dl (70-99); Potassium 4.3 mmol/L (3.5-5.1); Sodium 139 mmol/L (136-145)
[2018-08-25 23:47] LABS: Alanine Aminotransferase 16 U/L (12-78); Albumin Globulin Ratio 0.6 (0.9-2); Alkaline Phosphatase 167 U/L (45-117); Aspartate Aminotransferase 10 U/L (15-37); Bilirubin,Total 0.9 mg/dl (0.2-1); Creatine Kinase 59 U/L (39-308); Creatine Kinase MB 3.6 ng/ml (0.5-3.6); Globulin 4.5 gm/dl (2.5-4.0); NT Pro B Type Natriuretic Pept 1777 pg/ml (0-900); Total Protein 7.3 gm/dl (6.4-8.2); Troponin I < 0.015 ng/ml (0-0.045)
[2018-08-25] MEDS ORDERED: FUROSEMIDE 40 MG/4 ML VIAL IV STA (23:52)
[2018-08-25] MEDS ORDERED: LEVALBUTEROL 1.25MG/0.5ML NEB ONE (23:59)
[2018-08-26] MEDS ORDERED: OPTIRAY 320 125ml IV PRN (01:10)
--- NOTE | 2018-08-26 01:42 | Emergency Department Note ---
History of Present Illness General Chief complaint: Shortness of Breath/Dyspnea Stated complaint: SOB Time Seen by Provider: 08/25/18 22:40 Source: patient, family, EMS, RN notes reviewed and old records reviewed Mode of arrival: EMS Limitations: no limitations History of Present Illness Provider complaint: SOB Onset (ago): hour(s) 6 Location: chest Radiation: non-radiation Severity: moderate This is a 73-year-old male who was brought in by EMS. The patient is not normally on oxygen at home however has been complaining of shortness of breath. He reports he has been short of breath for the past several hours. He does have a history of atrial fibrillation. He is on a blood thinner for this. He denies any fevers. The patient has not taken anything for the shortness of breath. Home Medications Home Medications Medication Instructions Recorded Confirmed Type apixaban 5 mg tablet 5 mg PO BID 02/18/18 08/25/18 History baclofen 10 mg tablet 10 mg PO QID 02/18/18 08/25/18 History brimonidine 0.2 % eye drops 1 drops OP BID ml 02/18/18 08/25/18 History diltiazem ER 240 mg capsule,24 240 mg PO DAILY 02/18/18 08/25/18 History hr,extended release dorzolamide 2 % eye drops 1 drops OP TID 02/18/18 08/25/18 History furosemide 40 mg tablet 40 mg PO DAILY tab 02/18/18 08/25/18 History glipizide 10 mg tablet 10 mg PO BID 02/18/18 08/25/18 History lisinopril 40 mg tablet 40 mg PO DAILY 02/18/18 08/25/18 History methenamine hippurate 1 gram tablet 1 gm PO QPM tab 02/18/18 08/25/18 History multivitamin capsule 1 cap PO DAILY 02/18/18 08/25/18 History sertraline 50 mg tablet 50 mg PO HS 02/18/18 08/25/18 History zolpidem 10 mg tablet 10 mg PO HS PRN tab 02/18/18 08/25/18 History aspirin 81 mg PO HS 08/25/18 08/25/18 History latanoprost 1 drp OPB HS 08/25/18 08/25/18 History metformin 1,000 mg PO BID 08/25/18 08/25/18 History metoprolol succinate 50 mg PO BID 08/25/18 08/25/18 History vit C,C-Qd-btaiq-lutein-zeaxan 1 cap PO BID 08/25/18 08/25/18 History [PreserVision AREDS-2] Allergies Allergy/AdvReac Type Severity Reaction Status Date / Time No Known Allergies Allergy Verified 08/25/18 22:56 Past Med/Surg History Medical History A-fib (Acute) Leg ulcer (Acute) Cellulitis (Chronic) Diabetes 1.5, managed as type 2 (Chronic) Glaucoma (Chronic) HTN (hypertension) (Chronic) Hydrocele (Chronic) Scrotal mass (Chronic) Sepsis (Chronic) Small intestine obstruction (Chronic) Spastic paralysis (Chronic) UTI (urinary tract infection) (Chronic) Urinary retention (Chronic) Surgical History History of toe surgery (Chronic) S/P TURP (Chronic) Social History Communication Ability: Effective Beliefs That Will Affect Care: None Current Living Situation: Alone Other Information That Helps Us Care for You: No Feels Safe at Home: Yes Safety Concerns: Feels Safe At This Time Smoking Status: Former smoker Hx Alcohol Use: No Hx Substance Use: No Review of Systems A total of 10 systems reviewed and were otherwise negative Physical Exam Vital Signs Vital Signs - 24 hr 08/27/18 04:19 08/27/18 06:54 08/27/18 08:15 Temperature 37.1 C 36.7 C Temperature Source Oral Oral Pulse Rate Pulse Rate [Right Finger] 74 73 Respiratory Rate 18 18 Respiratory Effort / Characteristics Non-Labored Respiratory Depth Normal Normal Normal Respiratory Pattern Regular Blood Pressure [Left Arm] Blood Pressure [Right Arm] 139/75 154/91 H Blood Pressure Mean [Left Arm] Blood Pressure Mean [Right Arm] 96 112 Blood Pressure Position [Left Arm] Blood Pressure Position [Right Arm] Lying Pulse Oximetry 94 96 Oxygen Delivery Method Nasal Cannula Nasal Cannula Nasal Cannula Oxygen Flow Rate 2 2 2 08/27/18 11:45 08/27/18 12:00 08/27/18 15:00 Temperature 36.7 C 36.6 C Temperature Source Oral Oral Pulse Rate Pulse Rate [Right Finger] 57 L 67 Respiratory Rate 20 18 Respiratory Effort / Characteristics Non-Labored Spontaneous Respiratory Depth Respiratory Pattern Blood Pressure [Left Arm] 120/72 Blood Pressure [Right Arm] 130/76 Blood Pressure Mean [Left Arm] 88 Blood Pressure Mean [Right Arm] 94 Blood Pressure Position [Left Arm] Blood Pressure Position [Right Arm] Lying Pulse Oximetry 92 94 Oxygen Delivery Method Nasal Cannula Nasal Cannula Oxygen Flow Rate 2 08/27/18 15:17 08/27/18 19:46 08/27/18 20:29 Temperature 36.6 C 36.7 C 36.3 C L Temperature Source Oral Oral Oral Pulse Rate Pulse Rate [Right Finger] 61 66 78 Respiratory Rate 18 20 16 Respiratory Effort / Characteristics Respiratory Depth Respiratory Pattern Blood Pressure [Left Arm] 125/68 154/84 H Blood Pressure [Right Arm] 150/80 H Blood Pressure Mean [Left Arm] 87 107 Blood Pressure Mean [Right Arm] 103 Blood Pressure Position [Left Arm] Lying Blood Pressure Position [Right Arm] Pulse Oximetry 93 95 93 Oxygen Delivery Method Nasal Cannula Nasal Cannula Oxygen Flow Rate 2 2 08/27/18 20:30 08/27/18 23:02 08/28/18 00:00 Temperature 36.5 C Temperature Source Oral Pulse Rate Pulse Rate [Right Finger] 78 Respiratory Rate 18 Respiratory Effort / Characteristics Spontaneous Short of Breath Non-Labored Spontaneous Respiratory Depth Shallow Respiratory Pattern Regular Blood Pressure [Left Arm] 134/68 Blood Pressure [Right Arm] Blood Pressure Mean [Left Arm] 90 Blood Pressure Mean [Right Arm] Blood Pressure Position [Left Arm] Lying Blood Pressure Position [Right Arm] Pulse Oximetry 95 Oxygen Delivery Method Nasal Cannula Nasal Cannula Nasal Cannula Oxygen Flow Rate 2 2 2 08/28/18 01:46 Temperature Temperature Source Pulse Rate 70 Pulse Rate [Right Finger] Respiratory Rate Respiratory Effort / Characteristics Respiratory Depth Respiratory Pattern Blood Pressure [Left Arm] Blood Pressure [Right Arm] Blood Pressure Mean [Left Arm] Blood Pressure Mean [Right Arm] Blood Pressure Position [Left Arm] Blood Pressure Position [Right Arm] Pulse Oximetry Oxygen Delivery Method Oxygen Flow Rate GENERAL: Patient is a ill-appearing well-nourished male HEAD: Normocephalic atraumatic EYES: Ocular movements intact pupils equal and react to light OROPHARYNX mucous membranes are moist no exudates present no erythema or edema present NECK: Supple no nuchal rigidity CHEST: Good equal expansion LUNGS: Clear and equal to auscultation CARDIAC: Normal S1 and S2 ABDOMEN: Soft nontender no guarding, Umbilical hernia present BACK: No CVA tenderness EXTREMITIES: No pain upon palpation normal muscle strength in all groups no clubbing Cellulitis present, b/l legs extending pat knees NEURO: Patient is following commands is answering questions appropriately. Alert and oriented x3 Cranial Nerves 2-12 grossly intact Course Administered Medications Apixaban (Eliquis) 5 mg PO BID [facility] Stop: 09/26/18 08:59 Last Admin: 08/27/18 21:25 Dose: 5 mg Documented by: [id number] Admin: 08/27/18 08:36 Dose: 5 mg Documented by: [id number] Aspirin (Ecotrin Ectab) 81 mg PO QAM [facility] Stop: 09/26/18 08:59 Last Admin: 08/27/18 08:36 Dose: 81 mg Documented by: [id number] Baclofen (Lioresal) 10 mg PO QID [facility] Stop: 09/25/18 08:59 Last Admin: 08/27/18 21:26 Dose: 10 mg Documented by: [id number] Admin: 08/27/18 17:13 Dose: 10 mg Documented by: [id number] Admin: 08/27/18 12:17 Dose: 10 mg Documented by: [id number] Admin: 08/27/18 07:48 Dose: 10 mg Documented by: [id number] Admin: 08/26/18 21:10 Dose: 10 mg Documented by: [id number] Admin: 08/26/18 17:14 Dose: 10 mg Documented by: [id number] Admin: 08/26/18 12:25 Dose: 10 mg Documented by: [id number] Admin: 08/26/18 08:53 Dose: 10 mg Documented by: [id number] Brimonidine Tartrate (Alphagan 0.2%) 1 drops OP BID [facility] Stop: 09/25/18 08:59 Last Admin: 08/27/18 21:24 Dose: 1 drops Documented by: [id number] Admin: 08/27/18 07:48 Dose: 1 drops Documented by: [id number] Admin: 08/26/18 21:08 Dose: 1 drops Documented by: [id number] Admin: 08/26/18 08:49 Dose: 1 drops Documented by: [id number] Diltiazem HCl (Tiazac) 240 mg PO DAILY [facility] Stop: 09/25/18 08:59 Last Admin: 08/27/18 07:47 Dose: 240 mg Documented by: [id number] Admin: 08/26/18 08:44 Dose: 240 mg Documented by: [id number] Dorzolamide HCl (Trusopt 2% Oph) 1 drops OP TID [facility] Stop: 09/25/18 08:59 Last Admin: 08/27/18 21:27 Dose: 1 drops Documented by: [id number] Admin: 08/27/18 13:46 Dose: 1 drops Documented by: [id number] Admin: 08/27/18 07:48 Dose: 1 drops Documented by: [id number] Admin: 08/26/18 21:16 Dose: 1 drops Documented by: [id number] Admin: 08/26/18 14:00 Dose: 1 drops Documented by: [id number] Admin: 08/26/18 08:54 Dose: 1 drops Documented by: [id number] Doxycycline Hyclate (Vibramycin) 100 mg PO BID [facility] Stop: 09/02/18 20:59 Last Admin: 08/27/18 21:26 Dose: 100 mg Documented by: [id number] Admin: 08/27/18 07:47 Dose: 100 mg Documented by: [id number] Admin: 08/26/18 21:12 Dose: 100 mg Documented by: [id number] Furosemide (Lasix) 40 mg PO DAILY [facility] Stop: 09/25/18 08:59 Last Admin: 08/27/18 07:48 Dose: 40 mg Documented by: [id number] Admin: 08/26/18 08:52 Dose: 40 mg Documented by: [id number] Furosemide (Lasix) 20 mg PO ONE [facility] Stop: 09/25/18 15:59 Last Admin: 08/27/18 16:00 Dose: 20 mg Documented by: [id number] Admin: 08/26/18 16:37 Dose: 20 mg Documented by: [id number] Insulin Aspart (Novolog Flexpen) 0 units SC ACHS [facility]E Stop: 09/25/18 07:29 Last Admin: 08/27/18 21:31 Dose: 1 units Documented by: [id number] Cosigned by: [id number] Admin: 08/27/18 17:49 Dose: 4 units Documented by: [id number] Cosigned by: [id number] Admin: 08/27/18 12:17 Dose: 4 units Documented by: [id number] Cosigned by: [id number] Admin: 08/27/18 08:36 Dose: 2 units Documented by: [id number] Cosigned by: [id number] Admin: 08/26/18 21:10 Dose: Not Given Documented by: [id number] Cosigned by: [id number] Admin: 08/26/18 17:14 Dose: 1 units Documented by: [id number] Cosigned by: [id number] Admin: 08/26/18 12:25 Dose: Not Given Documented by: [id number] Cosigned by: [id number] Admin: 08/26/18 08:42 Dose: Not Given Documented by: [id number] Cosigned by: [id number] Ioversol (Optiray 320 125ml) 113 ml IV ONCE PRN PRN Reason: Interaction Checking Stop: 08/30/18 01:09 Last Admin: 08/26/18 01:11 Dose: 1 ml Documented by: [id number] Latanoprost (Xalatan Oph) 1 drops OPB HS [facility]E Stop: 09/25/18 20:59 Last Admin: 08/27/18 21:28 Dose: 1 drops Documented by: [id number] Admin: 08/26/18 21:13 Dose: 1 drops Documented by: [id number] Lisinopril (Zestril) 40 mg PO DAILY [facility] Stop: 09/25/18 08:59 Last Admin: 08/27/18 07:47 Dose: 40 mg Documented by: [id number] Admin: 08/26/18 08:53 Dose: 40 mg Documented by: [id number] Methenamine Hippurate (Urex) 1 gm PO QPM [facility] Stop: 09/25/18 20:59 Last Admin: 08/27/18 21:26 Dose: 1 gm Documented by: [id number] Admin: 08/26/18 21:12 Dose: 1 gm Documented by: [id number] Metoprolol Succinate (Toprol Xl) 50 mg PO BID [facility] Stop: 09/25/18 08:59 Last Admin: 08/27/18 07:47 Dose: 50 mg Documented by: [id number] Admin: 08/26/18 21:11 Dose: 50 mg Documented by: [id number] Admin: 08/26/18 08:53 Dose: 50 mg Documented by: [id number] Multivitamins (Multivitamin Tab) 1 tab PO DAILY MOE Stop: 09/25/18 08:59 Last Admin: 08/27/18 07:48 Dose: 1 tab Documented by: [id number] Admin: 08/26/18 08:54 Dose: 1 tab Documented by: [id number] Multivitamins/Minerals (Multivitamin W/ Minerals Tab) 1 tab PO DAILY MOE Stop: 09/25/18 08:59 Last Admin: 08/27/18 07:48 Dose: 1 tab Documented by: [id number] Admin: 08/26/18 08:53 Dose: 1 tab Documented by: [id number] Polyethylene Glycol (Miralax Powder Packet) 17 gm PO DAILY MOE Stop: 09/26/18 08:59 Last Admin: 08/27/18 19:23 Dose: 17 gm Documented by: [id number] Admin: 08/27/18 07:47 Dose: Not Given Documented by: [id number] Sennosides (Senokot) 17.2 mg PO QAM [facility] Stop: 09/26/18 08:59 Last Admin: 08/27/18 08:36 Dose: 17.2 mg Documented by: [id number] Sertraline HCl (Zoloft) 50 mg PO HS [facility] Stop: 09/25/18 20:59 Last Admin: 08/27/18 21:27 Dose: 50 mg Documented by: [id number] Admin: 08/26/18 21:12 Dose: 50 mg Documented by: [id number] Discontinued Medications Albuterol (Duoneb) Confirm Administered Dose 3 ml .ROUTE .STK-MED ONE Stop: 08/25/18 22:57 Last Admin: 08/26/18 16:54 Dose: Not Given Documented by: [id number] Bisacodyl (Dulcolax) 10 mg MO NOW STA Stop: 08/26/18 19:47 Last Admin: 08/26/18 21:07 Dose: Not Given Documented by: [id number] Bisacodyl (Dulcolax) 10 mg MO NOW ONE; Protocol Stop: 08/27/18 00:46 Last Admin: 08/27/18 01:18 Dose: 10 mg Documented by: [id number] Diltiazem HCl (Cardizem) 25 mg IV NOW STA Stop: 08/25/18 22:52 Last Admin: 08/25/18 23:01 Dose: 25 mg Documented by: [id number] Cosigned by: [id number] Furosemide (Lasix) 40 mg IV NOW STA Stop: 08/25/18 23:53 Last Admin: 08/26/18 00:34 Dose: 40 mg Documented by: [id number] Piperacillin Sod/Tazobactam Sod (Zosyn) 4.5 gm in 120 mls @ 240 mls/hr IV NOW ONE Stop: 08/26/18 00:07 Last Infusion: 08/26/18 01:22 Dose: 0 mls/hr Documented by: [id number] Admin: 08/26/18 00:25 Dose: 240 mls/hr Documented by: [id number] Levofloxacin/Dextrose (Levaquin/D5w) 750 mg in 150 mls @ 100 mls/hr IV NOW STA Stop: 08/26/18 01:07 Last Infusion: 08/26/18 02:50 Dose: 0 mls/hr Documented by: [id number] Admin: 08/26/18 01:18 Dose: 100 mls/hr Documented by: [id number] Vancomycin HCl 2,250 mg/ (Sodium Chloride) 545 mls @ 200 mls/hr IV NOW ONE Stop: 08/26/18 04:30 Last Infusion: 08/26/18 04:53 Dose: 0 mls/hr Documented by: [id number] Admin: 08/26/18 02:09 Dose: 200 mls/hr Documented by: [id number] Doxycycline Hyclate 100 mg/ (Dextrose) 110 mls @ 50 mls/hr IV Q12H MOE Stop: 09/05/18 07:59 Last Infusion: 08/26/18 09:47 Dose: 0 mls/hr Documented by: [id number] Admin: 08/26/18 07:35 Dose: 50 mls/hr Documented by: [id number] Vancomycin HCl 1,500 mg/ (Sodium Chloride) 530 mls @ 200 mls/hr IV Q10H MOE Stop: 09/05/18 11:59 Last Infusion: 08/26/18 15:18 Dose: 0 mls/hr Documented by: [id number] Admin: 08/26/18 12:22 Dose: 200 mls/hr Documented by: [id number] Magnesium Sulfate/Dextrose (Magnesium Sulfate / D5w) 1 gm in 100 mls @ 100 mls/hr IV 2030 ONE Stop: 08/27/18 21:29 Last Infusion: 08/27/18 22:45 Dose: 0 mls/hr Documented by: [id number] Admin: 08/27/18 21:24 Dose: 100 mls/hr Documented by: [id number] Potassium Chloride (K Rex / Wtr) 10 meq in 100 mls @ 100 mls/hr IV Q1H [facility]E Stop: 08/27/18 23:29 Last Infusion: 08/28/18 01:22 Dose: 0 mls/hr Documented by: [id number] Admin: 08/28/18 00:16 Dose: 100 mls/hr Documented by: [id number] Infusion: 08/27/18 23:45 Dose: 100 mls/hr Documented by: [id number] Admin: 08/27/18 22:45 Dose: 100 mls/hr Documented by: [id number] Infusion: 08/27/18 22:24 Dose: 100 mls/hr Documented by: [id number] Admin: 08/27/18 21:24 Dose: 100 mls/hr Documented by: [id number] Levalbuterol HCl (Xopenex 0.31mg/3 Ml) 0.31 mg NEB NOW STA Stop: 08/25/18 23:39 Last Admin: 08/26/18 00:45 Dose: 0.31 mg Documented by: [id number] Levalbuterol HCl (Xopenex 1.25mg/0.5ml Neb) Confirm Administered Dose 1.25 mg .ROUTE .STK-MED ONE Stop: 08/26/18 00:00 Last Admin: 08/26/18 00:45 Dose: Not Given Documented by: [id number] Medical Decision Making Differential Diagnosis My differential diagnosis includes NV, congestive heart failure, PE, cellulitis, sepsis Medical Records Attestation: I reviewed the patient's medical records. Laboratory Data Result diagrams: 08/27/18 05:33 08/27/18 05:33 Lab Results 08/25/18 08/25/18 08/26/18 Range/Units 23:05 23:05 05:34 WBC 18.78 H 18.69 H (4.8-10.8) K/uL RBC 5.52 5.02 (4.7-6.1) M/uL Hgb 14.4 13.2 L (14.0-18.0) g/dL Hct 45.7 41.5 L (42-52) % MCV 82.8 82.7 (80-100) fL MCH 26.1 26.3 (25-34) pg MCHC 31.5 L 31.8 L (32-36) g/dL RDW Std Deviation 49.7 H 50.0 H (36.4-46.3) fL RDW Coeff of Da 16.5 H 16.9 H (11.5-14.5) % Plt Count 252 232 (130-400) K/uL MPV 11.3 H 10.8 H (7.4-10.4) fL Immature Gran % (Auto) 0.4 0.3 % Neut % (Auto) 88.0 84.7 % Lymph % (Auto) 4.6 7.2 % [place] % (Auto) 5.5 7.2 % Eos % (Auto) 1.4 0.4 % Baso % (Auto) 0.1 0.2 % Immature Gran # (Auto) 0.07 H 0.05 H (0.00-0.02) K/uL Neut # (Auto) 16.52 H 15.85 H (1.4-6.5) K/uL Lymph # (Auto) 0.87 L 1.34 (1.2-3.4) K/uL [place] # (Auto) 1.04 H 1.34 H (0.11-0.59) K/uL Eos # (Auto) 0.26 0.07 (0-0.5) K/uL Baso # (Auto) 0.02 0.04 (0-0.2) K/uL Sodium 139 (136-145) mmol/L Potassium 4.3 (3.5-5.1) mmol/L Chloride 100 (98-107) mmol/L Carbon Dioxide 30 (21-32) mmol/L Anion Gap 9.0 (3-11) BUN 25 H (7-18) mg/dl Creatinine 0.85 (0.6-1.4) mg/dl Est Cr Clr Drug Dosing 96.8 ml/min Est GFR ( Amer) 100.2 Est GFR (Non-Af Amer) 86.4 BUN/Creatinine Ratio 29.4 H (10-20) Glucose 214 H (70-99) mg/dl POC Glucose (70-99) Calcium 9.1 (8.5-10.1) mg/dl Phosphorus (2.5-4.9) mg/dl Magnesium (1.8-2.4) mg/dl Total Bilirubin 0.9 (0.2-1) mg/dl AST 10 L (15-37) U/L ALT 16 (12-78) U/L Alkaline Phosphatase 167 H (45-117) U/L Total Creatine Kinase 59 (39-308) U/L CK-MB (CK-2) 3.6 (0.5-3.6) ng/ml CK/CKMB % Calc 6.1 H (0-3.0) Troponin I < 0.015 (0-0.045) ng/ml NT-Pro-B Natriuret Pep 1777 H (0-900) pg/ml Total Protein 7.3 (6.4-8.2) gm/dl Albumin 2.8 L (3.4-5.0) gm/dl Globulin 4.5 H (2.5-4.0) gm/dl Albumin/Globulin Ratio 0.6 L (0.9-2) Lipase 201 (73-393) U/L TSH (0.300-4.500) uIu/ml 08/26/18 08/26/18 08/26/18 Range/Units 05:34 07:36 12:03 WBC (4.8-10.8) K/uL RBC (4.7-6.1) M/uL Hgb (14.0-18.0) g/dL Hct (42-52) % MCV (80-100) fL MCH (25-34) pg MCHC (32-36) g/dL RDW Std Deviation (36.4-46.3) fL RDW Coeff of Da (11.5-14.5) % Plt Count (130-400) K/uL MPV (7.4-10.4) fL Immature Gran % (Auto) % Neut % (Auto) % Lymph % (Auto) % [place] % (Auto) % Eos % (Auto) % Baso % (Auto) % Immature Gran # (Auto) (0.00-0.02) K/uL Neut # (Auto) (1.4-6.5) K/uL Lymph # (Auto) (1.2-3.4) K/uL [place] # (Auto) (0.11-0.59) K/uL Eos # (Auto) (0-0.5) K/uL Baso # (Auto) (0-0.2) K/uL Sodium 139 (136-145) mmol/L Potassium 3.9 (3.5-5.1) mmol/L Chloride 103 (98-107) mmol/L Carbon Dioxide 30 (21-32) mmol/L Anion Gap 6.0 (3-11) BUN 26 H (7-18) mg/dl Creatinine 0.97 (0.6-1.4) mg/dl Est Cr Clr Drug Dosing 84.2 ml/min Est GFR ( Amer) 89.4 Est GFR (Non-Af Amer) 77.1 BUN/Creatinine Ratio 27.1 H (10-20) Glucose 149 H (70-99) mg/dl POC Glucose 135 H 157 H (70-99) Calcium 8.2 L (8.5-10.1) mg/dl Phosphorus (2.5-4.9) mg/dl Magnesium (1.8-2.4) mg/dl Total Bilirubin (0.2-1) mg/dl AST (15-37) U/L ALT (12-78) U/L Alkaline Phosphatase (45-117) U/L Total Creatine Kinase (39-308) U/L CK-MB (CK-2) (0.5-3.6) ng/ml CK/CKMB % Calc (0-3.0) Troponin I (0-0.045) ng/ml NT-Pro-B Natriuret Pep (0-900) pg/ml Total Protein (6.4-8.2) gm/dl Albumin (3.4-5.0) gm/dl Globulin (2.5-4.0) gm/dl Albumin/Globulin Ratio (0.9-2) Lipase (73-393) U/L TSH (0.300-4.500) uIu/ml 08/26/18 08/26/18 08/27/18 Range/Units 16:32 20:08 05:33 WBC (4.8-10.8) K/uL RBC (4.7-6.1) M/uL Hgb (14.0-18.0) g/dL Hct (42-52) % MCV (80-100) fL MCH (25-34) pg MCHC (32-36) g/dL RDW Std Deviation (36.4-46.3) fL RDW Coeff of Da (11.5-14.5) % Plt Count (130-400) K/uL MPV (7.4-10.4) fL Immature Gran % (Auto) % Neut % (Auto) % Lymph % (Auto) % [place] % (Auto) % Eos % (Auto) % Baso % (Auto) % Immature Gran # (Auto) (0.00-0.02) K/uL Neut # (Auto) (1.4-6.5) K/uL Lymph # (Auto) (1.2-3.4) K/uL [place] # (Auto) (0.11-0.59) K/uL Eos # (Auto) (0-0.5) K/uL Baso # (Auto) (0-0.2) K/uL Sodium 140 (136-145) mmol/L Potassium 3.5 (3.5-5.1) mmol/L Chloride 102 (98-107) mmol/L Carbon Dioxide 31 (21-32) mmol/L Anion Gap 6.0 (3-11) BUN 24 H (7-18) mg/dl Creatinine 0.95 (0.6-1.4) mg/dl Est Cr Clr Drug Dosing 85.8 ml/min Est GFR ( Amer) 91.7 Est GFR (Non-Af Amer) 79.1 BUN/Creatinine Ratio 25.1 H (10-20) Glucose 160 H (70-99) mg/dl POC Glucose 150 H 144 H (70-99) Calcium 8.6 (8.5-10.1) mg/dl Phosphorus (2.5-4.9) mg/dl Magnesium 1.9 (1.8-2.4) mg/dl Total Bilirubin (0.2-1) mg/dl AST (15-37) U/L ALT (12-78) U/L Alkaline Phosphatase (45-117) U/L Total Creatine Kinase (39-308) U/L CK-MB (CK-2) (0.5-3.6) ng/ml CK/CKMB % Calc (0-3.0) Troponin I (0-0.045) ng/ml NT-Pro-B Natriuret Pep (0-900) pg/ml Total Protein (6.4-8.2) gm/dl Albumin (3.4-5.0) gm/dl Globulin (2.5-4.0) gm/dl Albumin/Globulin Ratio (0.9-2) Lipase (73-393) U/L TSH (0.300-4.500) uIu/ml 08/27/18 08/27/18 08/27/18 Range/Units 05:33 06:58 11:43 WBC 11.40 H (4.8-10.8) K/uL RBC 4.99 (4.7-6.1) M/uL Hgb 13.2 L (14.0-18.0) g/dL Hct 41.4 L (42-52) % MCV 83.0 (80-100) fL MCH 26.5 (25-34) pg MCHC 31.9 L (32-36) g/dL RDW Std Deviation 51.1 H (36.4-46.3) fL RDW Coeff of Da 17.0 H (11.5-14.5) % Plt Count 208 (130-400) K/uL MPV 11.1 H (7.4-10.4) fL Immature Gran % (Auto) 0.3 % Neut % (Auto) 78.7 % Lymph % (Auto) 9.1 % [place] % (Auto) 10.1 % Eos % (Auto) 1.7 % Baso % (Auto) 0.1 % Immature Gran # (Auto) 0.03 H (0.00-0.02) K/uL Neut # (Auto) 8.98 H (1.4-6.5) K/uL Lymph # (Auto) 1.04 L (1.2-3.4) K/uL [place] # (Auto) 1.15 H (0.11-0.59) K/uL Eos # (Auto) 0.19 (0-0.5) K/uL Baso # (Auto) 0.01 (0-0.2) K/uL Sodium (136-145) mmol/L Potassium (3.5-5.1) mmol/L Chloride (98-107) mmol/L Carbon Dioxide (21-32) mmol/L Anion Gap (3-11) BUN (7-18) mg/dl Creatinine (0.6-1.4) mg/dl Est Cr Clr Drug Dosing ml/min Est GFR ( Amer) Est GFR (Non-Af Amer) BUN/Creatinine Ratio (10-20) Glucose (70-99) mg/dl POC Glucose 181 H 201 H (70-99) Calcium (8.5-10.1) mg/dl Phosphorus (2.5-4.9) mg/dl Magnesium (1.8-2.4) mg/dl Total Bilirubin (0.2-1) mg/dl AST (15-37) U/L ALT (12-78) U/L Alkaline Phosphatase (45-117) U/L Total Creatine Kinase (39-308) U/L CK-MB (CK-2) (0.5-3.6) ng/ml CK/CKMB % Calc (0-3.0) Troponin I (0-0.045) ng/ml NT-Pro-B Natriuret Pep (0-900) pg/ml Total Protein (6.4-8.2) gm/dl Albumin (3.4-5.0) gm/dl Globulin (2.5-4.0) gm/dl Albumin/Globulin Ratio (0.9-2) Lipase (73-393) U/L TSH (0.300-4.500) uIu/ml 08/27/18 08/27/18 Range/Units 11:51 16:18 WBC (4.8-10.8) K/uL RBC (4.7-6.1) M/uL Hgb (14.0-18.0) g/dL Hct (42-52) % MCV (80-100) fL MCH (25-34) pg MCHC (32-36) g/dL RDW Std Deviation (36.4-46.3) fL RDW Coeff of Da (11.5-14.5) % Plt Count (130-400) K/uL MPV (7.4-10.4) fL Immature Gran % (Auto) % Neut % (Auto) % Lymph % (Auto) % [place] % (Auto) % Eos % (Auto) % Baso % (Auto) % Immature Gran # (Auto) (0.00-0.02) K/uL Neut # (Auto) (1.4-6.5) K/uL Lymph # (Auto) (1.2-3.4) K/uL [place] # (Auto) (0.11-0.59) K/uL Eos # (Auto) (0-0.5) K/uL Baso # (Auto) (0-0.2) K/uL Sodium (136-145) mmol/L Potassium (3.5-5.1) mmol/L Chloride (98-107) mmol/L Carbon Dioxide (21-32) mmol/L Anion Gap (3-11) BUN (7-18) mg/dl Creatinine (0.6-1.4) mg/dl Est Cr Clr Drug Dosing ml/min Est GFR ( Amer) Est GFR (Non-Af Amer) BUN/Creatinine Ratio (10-20) Glucose (70-99) mg/dl POC Glucose 188 H (70-99) Calcium (8.5-10.1) mg/dl Phosphorus 4.0 (2.5-4.9) mg/dl Magnesium (1.8-2.4) mg/dl Total Bilirubin (0.2-1) mg/dl AST (15-37) U/L ALT (12-78) U/L Alkaline Phosphatase (45-117) U/L Total Creatine Kinase (39-308) U/L CK-MB (CK-2) (0.5-3.6) ng/ml CK/CKMB % Calc (0-3.0) Troponin I (0-0.045) ng/ml NT-Pro-B Natriuret Pep (0-900) pg/ml Total Protein (6.4-8.2) gm/dl Albumin (3.4-5.0) gm/dl Globulin (2.5-4.0) gm/dl Albumin/Globulin Ratio (0.9-2) Lipase (73-393) U/L TSH 1.870 (0.300-4.500) uIu/ml Imaging Data Attestation: I personally reviewed and interpreted this imaging study as follows: My Impression: 1 view of the chest was interpreted by me shows bilateral pulmonary edema. There is no evidence of pneumonia or congestion. Prescription Drug Monitoring [place] Drug Monitoring Program reviewed and no issues identified Blood Pressure Blood Pressure Findings: Elevated blood pressure Blood Pressure Disposition: further management by hospitalist MDM Narrative This is a 73-year-old male who presents emergency department complaining of shortness of breath. Upon arrival to the emergency department patient is in A. fib with RVR. He was given Cardizem here in the emergency department. He was given Xopenex breathing treatments. I am concerned that there is pulmonary edema on the patient's chest x-ray therefore he was given Lasix. He does have a elevation in his white blood cell count 18,000. I do believe that this is consistent with cellulitis in the lower extremities. The patient was started on antibiotics and sent for a CAT scan of the chest. The patient is requiring oxygen here so I did discuss the case with the hospitalist service. Impression & Plan Congestive heart failure, Cellulitis Discharge Plan Visit Data *Final* Discharge Date/Time: 08/26/18 04:08 Chief Complaint: Shortness of Breath/Dyspnea Stated Complaint: SOB ED Provider: Lito Velez Discharge Problem: Congestive heart failure, Cellulitis Patient Disposition: Admitted As Inpatient Discharge Instructions Interventions: ED Discharge Assessment Last Done: 08/26/18 04:08 Discharge Problem: Congestive heart failure Qualifiers: Heart failure type: unspecified Heart failure chronicity: unspecified Qualified Code(s): I50.9 - Heart failure, unspecified Cellulitis Qualifiers: Site of cellulitis: extremity Site of cellulitis of extremity: lower extremity Laterality: unspecified laterality Qualified Code(s): L03.119 - Cellulitis of unspecified part of limb
[2018-08-26] MEDS ORDERED: VANCOMYCIN CONSULT ACTIVE PRN (01:47)
[2018-08-26] MEDS ORDERED: VANCOMYCIN HCL 2,250 MG in SODIUM CHLORIDE 0.9% 500 ML IV ONE (01:47)
--- NOTE | 2018-08-26 03:37 | History & Physical Report ---
Date of Service August 26, 2018 Assessment & Plan (1) Cellulitis: Mr. Tran is a 73 year old male with a past medical history of atrial fibrillation, diabetes mellitus, hypertension, spastic paralysis, peripheral vascular disease and glaucoma who presents to the emergency department due to shortness of breath. ED Course: 25mg IV Diltiazem, 40mg IV Lasix, 4.5gm IV Zosyn, 750mg IV Levaquin, 2,250mg of IV Vancomycin, Xopenex Nebulizers. Patient was also placed on 2L of oxygen via nasal cannula due to a desaturation to 89%. -admit to med/surg with telemetry monitoring -Physical examination consistent w/left leg cellulitis. Pt has elevated WCC of 18.78 -Continue zosyn and vancomycin -bcx x2 drawn and pending Pleural Effusion -CTA showed moderate right pleural effusion and trace left pleural effusion, as well as "mild focal nodular/groundglass opacities in upper lobes which may represent an infectious/inflammatory component" -pt received 40mg IV Lasix in ED -O2 as needed to maintain saturations >94% -CXR in AM to reassess pleural effusions -will consult ferruler for possible diagnostic thoracentesis -ECHO in November 2017 -> normal systolic function, mild , moderate MS -zosyn and vancomycin to also cover for infectious pulmonary process Atrial Fibrillation -pt was in afib w/rate of 130 upon presentation to ED -received 25mg of IV diltiazem -continue home diltiazem and metoprolol -hold home apixaban in case pt has a thoracentesis Diabetes Mellitus -hold home metformin and glipizide -BSG AC/HS and ISS ordered PVD -s/p angioplasty on the right -follows w/Dr. 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 Holding due to possible thoracentesis F/E/N: Diabetic Diet. No electrolyte abnormalities noted. No IVF ordered. (2) Umbilical hernia: (3) Atrial fibrillation: (4) Paraplegia: (5) Pleural effusion: (6) Diabetes mellitus: (7) Peripheral arterial disease: History of Present Illness Primary Care Provider: Jm Carrillo MD Mr. Tran is a 73 year old male with a past medical history of atrial fibrillation, diabetes mellitus, hypertension, spastic paralysis, peripheral vascular disease and glaucoma who presents to the emergency department due to shortness of breath. The patient states that his shortness of breath began yesterday, around 3 PM. Initially, he attributed this to anxiety, however the symptoms persisted. He states that his symptoms are worse with lying flat. He denies associated chest pain, palpitations, fever or chills. He does endorse a dry cough over the past 2-3 weeks. He states that he is not on oxygen at home. He also reports feeling disoriented and lightheaded. He states that he takes Lasix daily for bilateral leg edema, and he states he has not noticed that his legs are any more swollen than usual. He denies missing any doses of his medications. With regards to his spastic paralysis, he states that his symptoms began 30 years ago, and that he is now wheelchair-bound. He does live by himself, however has home health coming in through the [place] to assist him with ADLs. He does have an indwelling Coon catheter. Of note, he is a prior smoker. He states he quit smoking 45 years ago, however used to smoke 2 packs/day for 10 years. He denies any recent use of alcohol or recreational drugs. Allergies Allergy/AdvReac Type Severity Reaction Status Date / Time No Known Allergies Allergy Verified 08/25/18 22:56 Home Medications Home Medications Medication Instructions Recorded Confirmed Type apixaban 5 mg tablet 5 mg PO BID 02/18/18 08/25/18 History baclofen 10 mg tablet 10 mg PO QID 02/18/18 08/25/18 History brimonidine 0.2 % eye drops 1 drops OP BID ml 02/18/18 08/25/18 History diltiazem ER 240 mg capsule,24 240 mg PO DAILY 02/18/18 08/25/18 History hr,extended release dorzolamide 2 % eye drops 1 drops OP TID 02/18/18 08/25/18 History furosemide 40 mg tablet 40 mg PO DAILY tab 02/18/18 08/25/18 History glipizide 10 mg tablet 10 mg PO BID 02/18/18 08/25/18 History lisinopril 40 mg tablet 40 mg PO DAILY 02/18/18 08/25/18 History methenamine hippurate 1 gram tablet 1 gm PO QPM tab 02/18/18 08/25/18 History multivitamin capsule 1 cap PO DAILY 02/18/18 08/25/18 History sertraline 50 mg tablet 50 mg PO HS 02/18/18 08/25/18 History zolpidem 10 mg tablet 10 mg PO HS PRN tab 02/18/18 08/25/18 History aspirin 81 mg PO HS 08/25/18 08/25/18 History latanoprost 1 drp OPB HS 08/25/18 08/25/18 History metformin 1,000 mg PO BID 08/25/18 08/25/18 History metoprolol succinate 50 mg PO BID 08/25/18 08/25/18 History vit C,G-Ew-nnpyj-lutein-zeaxan 1 cap PO BID 08/25/18 08/25/18 History [PreserVision AREDS-2] Past Med/Surg History Medical History A-fib (Acute) Leg ulcer (Acute) Cellulitis (Chronic) Diabetes 1.5, managed as type 2 (Chronic) Glaucoma (Chronic) HTN (hypertension) (Chronic) Hydrocele (Chronic) Scrotal mass (Chronic) Sepsis (Chronic) Small intestine obstruction (Chronic) Spastic paralysis (Chronic) UTI (urinary tract infection) (Chronic) Urinary retention (Chronic) Surgical History History of toe surgery (Chronic) S/P TURP (Chronic) Social History Preferred Language: Beninese Communication Ability: Effective Commercial Development Manager Required: No Beliefs That Will Affect Care: None Current Living Situation: Alone Other Information That Helps Us Care for You: No Feels Safe at Home: Yes Safety Concerns: Feels Safe At This Time Smoking Status: Former smoker Hx Alcohol Use: No Hx Substance Use: No Review of Systems Constitutional: + fatigue and + weakness; no fever and no chills Respiratory: + cough and + dyspnea; no hemoptysis, no sputum production and no wheezing Cardiovascular: + orthopnea; no chest pain, no palpitations, no syncope, no edema and no calf pain Gastrointestinal: no abdominal pain, no nausea, no vomiting and no change in bowel habits Integumentary: + sores (b/l LE); no new lesions Physical Exam Vital Signs (Past 24 Hours): Last Vital Signs Temp 36.8 C 08/25/18 22:39 Pulse 101 H 08/26/18 03:00 Resp 24 08/26/18 03:00 BP 132/76 08/26/18 03:00 Pulse Ox 97 08/26/18 03:00 Constitutional: WD/WN, vitals as above cooperative and comfortable Eyes: PERRL, conjunctivae normal, anicteric sclerae ENMT: external ear and nose normal, oropharynx normal dry mucous membranes Respiratory: normal respiratory effort; no respiratory distress Auscultation: + diminished lung sounds (at lung bases); no crackles and no wheezes Cardiovascular: Rate/Rhythm: regular rate; + abnormal rhythm Extremities: + pedal edema (b/l) Gastrointestinal (Abdomen): Percussion/Palpation: abdomen soft and + hernia (umbilical); abdomen nontender, no guarding and abdomen not rigid Skin: chronic venous stasis changes b/l, however left calf is warm to touch and tender over anterior flanagan Neurologic: 5/5 power in UE. LE with weakness bilaterally, R>L. Results & Data Laboratory Results Laboratory Results - last 24 hr 08/25/18 08/25/18 23:05 23:05 WBC 18.78 H RBC 5.52 Hgb 14.4 Hct 45.7 MCV 82.8 MCH 26.1 MCHC 31.5 L RDW Std Deviation 49.7 H RDW Coeff of Da 16.5 H Plt Count 252 MPV 11.3 H Immature Gran % (Auto) 0.4 Neut % (Auto) 88.0 Lymph % (Auto) 4.6 [place] % (Auto) 5.5 Eos % (Auto) 1.4 Baso % (Auto) 0.1 Immature Gran # (Auto) 0.07 H Neut # (Auto) 16.52 H Lymph # (Auto) 0.87 L [place] # (Auto) 1.04 H Eos # (Auto) 0.26 Baso # (Auto) 0.02 Sodium 139 Potassium 4.3 Chloride 100 Carbon Dioxide 30 Anion Gap 9.0 BUN 25 H Creatinine 0.85 Est Cr Clr Drug Dosing 96.8 Est GFR ( Amer) 100.2 Est GFR (Non-Af Amer) 86.4 BUN/Creatinine Ratio 29.4 H Glucose 214 H Calcium 9.1 Total Bilirubin 0.9 AST 10 L ALT 16 Alkaline Phosphatase 167 H Total Creatine Kinase 59 CK-MB (CK-2) 3.6 CK/CKMB % Calc 6.1 H Troponin I < 0.015 NT-Pro-B Natriuret Pep 1777 H Total Protein 7.3 Albumin 2.8 L Globulin 4.5 H Albumin/Globulin Ratio 0.6 L Lipase 201 Medications Administered Current Inpatient Medications Vancomycin HCl 2,250 mg/ (Sodium Chloride) 545 mls @ 200 mls/hr IV NOW ONE Stop: 08/26/18 04:30 Last Admin: 08/26/18 02:09 Dose: 200 mls/hr Documented by: Ioversol (Optiray 320 125ml) 113 ml IV ONCE PRN PRN Reason: Interaction Checking Stop: 08/30/18 01:09 Last Admin: 08/26/18 01:11 Dose: 1 ml Documented by: Miscellaneous Information (Consult) 1 ea N/A UD PRN PRN Reason: Consult Stop: 09/24/18 23:37 Miscellaneous Information (Consult) 1 ea N/A UD PRN PRN Reason: Consult Stop: 09/25/18 01:46 Supervising Physician Co-Signing Physician Notes 73 y/o M Hx AF, DM II, HTN, spastic LE paralysis, PVD, chronic LE edema, CHF (no echo on record). Presents with SOB which has been present for > 3 days. He describes orthopnea as well. A CTA chest was completed in the ER. The reading indicated a moderate R and small L pleural effusion and equivocated on PNM. Clinically, LLE cellulitis was present on admission, although he was not necessarily aware of this due to his paraplegia. OE AAO x 3 S1,2 R No air entry into R base NT, ND - prominent umbilical hernia BL edema and stasis changes - cellulitis distally on L P: SOB - likely due to CHF and effusion rather than PNM - he received an additional dose of Lasix in the ER - we would choose to repeat the CXR AM and if there is no improvement, proceed with thoracentesis. AF - not controlled on admission which may have contributed to volume overload. He responded to a single dose of Diltiazem. He is anticoagualted with Xarelto - AM dose held lest he need a thoracentesis. Cellulitis - He was placed on Zosyn and Vanc in the ER - I will narrow this to doxy and vanc which would cover PNM as wll if it is present. Resident Activity Tracking Resident Involvement: Resident Care Provided Care Provided: Adult Hospital Medicine (1) Cellulitis Laterality: unspecified laterality Site of cellulitis: extremity Site of cellulitis of extremity: lower extremity Qualified Code(s): L03.119 - Cellulitis of unspecified part of limb
[2018-08-26] MEDS ORDERED: GLUCOSE 40% GEL 15 GM TUBE PO PRN (05:16)
[2018-08-26] MEDS ORDERED: ZOLPIDEM TARTRATE 10 MG TAB PO PRN (05:16)
[2018-08-26] MEDS ORDERED: ACETAMINOPHEN 325 MG TAB PO PRN (05:16)
[2018-08-26] MEDS ORDERED: GLUCAGON FOR INJ 1 MG VIAL SQ PRN (05:16)
[2018-08-26] MEDS ORDERED: DEXTROSE 50% 50 ML SYRINGE IV PRN (05:16)
[2018-08-26] MEDS ORDERED: CARBOHYDRATES FOR HYPOGLYCEMIA PO PRN (05:16)
[2018-08-26] MEDS ORDERED: GLUCOSE 10 TABS/TUBE PO PRN (05:16)
[2018-08-26 05:48] LABS: Basophils # (auto) 0.04 K/uL (0-0.2); Basophils % (auto) 0.2 %; Eosinophils # (auto) 0.07 K/uL (0-0.5); Eosinophils % (auto) 0.4 %; Hematocrit (blood only) 41.5 % (42-52); Hemoglobin 13.2 g/dL (14.0-18.0); Immature Granulocytes # (auto) 0.05 K/uL (0.00-0.02); Immature Granulocytes % (auto) 0.3 %; Lymphocytes # (auto) 1.34 K/uL (1.2-3.4); Lymphocytes % (auto) 7.2 %; Mean Corpuscular Hgb Conc 31.8 g/dL (32-36); Mean Corpuscular Volume 82.7 fL (80-100); Mean Platelet Volume 10.8 fL (7.4-10.4); Monocytes # (auto) 1.34 K/uL (0.11-0.59); Monocytes % (auto) 7.2 %; Neutrophils # (auto) 15.85 K/uL (1.4-6.5); Neutrophils % (auto) 84.7 %; Platelet Count 232 K/uL (130-400); RDW Coefficient of Variation 16.9 % (11.5-14.5); Red Blood Count 5.02 M/uL (4.7-6.1); White Blood Count 18.69 K/uL (4.8-10.8)
[2018-08-26 06:25] LABS: BUN Creatinine Ratio 27.1 (10-20); Calcium 8.2 mg/dl (8.5-10.1); Creatinine Clr Calc Pharmacy 84.2 ml/min; Est GFR (African American) 89.4; Est GFR (Non-African American) 77.1; Potassium 3.9 mmol/L (3.5-5.1)
--- NOTE | 2018-08-26 07:08 | XRay Report ---
XR chest 1V portable CLINICAL HISTORY: Chest Pain dyspnea COMPARISON STUDY: 11/04/2017 FINDINGS: Components of congestive heart failure present. Pulmonary vasculature is prominent. Slight blunting lateral costophrenic angles bilaterally. IMPRESSION: Congestive heart failure The above report was generated using voice recognition software. It may contain grammatical, syntax or spelling errors. Electronically signed by: Jose Smith M.D. 08/26/2018 7:06 AM
--- NOTE | 2018-08-26 07:22 | CT Scan Report ---
CHEST CTA for PULMONARY ARTERIES CT DOSE: 621.76 mGy.cm HISTORY: Pulmonary embolus. Difficulty breathing. TECHNIQUE: Multiaxial CT images of the chest were performed following the intravenous administration of contrast to evaluate the pulmonary arteries. Maximal intensity projection images were also obtaine d. A dose lowering technique was utilized adhering to the principles of ALARA. COMPARISON STUDY: Chest CTA 01/10/2015. FINDINGS: Normal caliber thoracic aorta with no evidence for dissection. Retrograde opacification of the hepatic veins. The heart is mildly enlarged. Coronary artery calcifications. Moderate right and t race left pleural effusions. Mild mediastinal and bilateral hilar lymphadenopathy which is not signif icantly changed. Dominant subcarinal lymph node measures approximately 3.1 x 1.8 cm. No filling defec ts within the pulmonary arteries to suggest pulmonary embolus. Calcified right hilar lymph nodes. Edin ral annulus calcifications are noted. No suspicious lytic or blastic osseous lesions. No pneumothorax . There are few scattered nodular densities within the bilateral upper lobes. Dominant nodule within the right lung apex on image 218 measures 1 cm. This favors mild inflammatory/infectious change. Lowe r lobe basilar densities are nonspecific but favor compressive atelectasis from the pleural effusions . IMPRESSION: 1. No evidence for pulmonary embolus. 2. Moderate right and trace left pleural effusions. 3. A few scattered nodular densities within the upper lobes favors mild inflammatory/infectious baltazar e. [address] follow up is recommended to ensure resolution. 4. Prominent mediastinal and bilateral hilar lymph nodes, unchanged. Electronically signed by: Shailesh Thompson M.D. 08/26/2018 7:21 AM
[2018-08-26] MEDS ORDERED: DOXYCYCLINE HYCLATE 100 MG in DEXTROSE 5% 100 ML IV SCH (08:00)
--- NOTE | 2018-08-26 08:39 | XRay Report ---
XR chest 2V routine HISTORY: re-eval pleural effusion COMPARISON: Chest CTA 08/26/2018. FINDINGS: There are low lung volumes. No pneumothorax. Small bilateral pleural effusions persist. Mil d pulmonary vascular congestion has improved. The heart is top normal in size. IMPRESSION: 1. Slight improvement in the pulmonary vascular congestion. 2. Small bilateral pleural effusions persist. Electronically signed by: Shailesh Thompson M.D. 08/26/2018 8:38 AM
[2018-08-26] MEDS: INSULIN ASPART 100 UNITS/ML 3 ML PEN SC SCH ×4 (08:42→21:10)
[2018-08-26] MEDS: dilTIAZem ER 120 MG CAPCR PO SCH (08:44)
[2018-08-26] MEDS: BRIMONIDINE TARTRATE 0.2% 5ML OP SCH ×2 (08:49→21:08)
[2018-08-26] MEDS: FUROSEMIDE 40 MG TAB PO SCH (08:52)
[2018-08-26] MEDS: METOPROLOL SUCC 50MG EXT REL TAB PO SCH ×2 (08:53→21:11)
[2018-08-26] MEDS: BACLOFEN 10 MG TAB PO SCH ×4 (08:53→21:10)
[2018-08-26] MEDS: LISINOPRIL 40 MG TAB PO SCH (08:53)
[2018-08-26] MEDS: CEROVITE ADV FORMULA TAB PO SCH (08:53)
[2018-08-26] MEDS: DORZOLAMIDE HCL 2% OPH SOLN 10 ML BTL OP SCH ×3 (08:54→21:16)
[2018-08-26] MEDS: MULTIVITAMIN TAB PO SCH (08:54)
--- NOTE | 2018-08-26 09:39 | Pulmonary Consultation ---
Date of Consultation August 26, 2018 Assessment & Plan (1) Pleural effusion: * Initial chest X ray on admission showed components of congestive heart failure. Pulmonary vasculature is prominent and there is slight blunting the lateral costophrenic angles bilaterally. * A CTA was completed to rule out pulmonary emboli which showed a moderate right pleural effusion * Patient was diuresed and this morning pleural effusion is improved on the right * Patient is mildly hypoxic this morning tolerating room air at rest * I performed a bedside ultrasound which showed minimal fluid on the right and no fluid on the left. 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 * Chronic prominent mediastinal and bilateral hilar lymph nodes. * Started on doxycycline 100 mg every 12 hours for cellulitis. 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 Please refer to Dr. Hurley's addendum for further recommendations. Supervising Physician Co-Signing Physician Notes The patient is seen and examined by myself along with Chandra Ohara PA-C. Overall the patient is stable on current plan of care and will continue with that. Also agree with the assessment and recommendations from Chandra Ohara PA-C. History of Present Illness Reason for Consultation: Evaluate for shortness of breath, right pleural effusion Attending Physician: Tre Mccormack History of Present Illness Attending: Dr. Hurley This is a 73-year-old male admitted for shortness of breath. 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 The patient on chest x-ray was found to have a r ight pleural effusion. A CTA of the chest was completed to rule out pulmonary embolus and patient was found to have a moderate to large right pleural effusion. He received diuretics and overnight seem to improve with his oxygenation status. This morning repeat chest x-ray shows very small persistent pleural effusions. Bedside ultrasound shows very little effusion and no clear target for thoracentesis. The patient states that he has had the increasing shortness of breath for about the last week. He was found to have an elevated BNP and chronically edematous bilateral lower extremities. The patient states he had generalized chest pain last night but no pleuritic pain and no precordial pain. The patient does have a dry cough no sputum production. He has no hemoptysis. The patient denies fever, chills, sweats, rigors. No significant history of pneumonia or bronchitis. He did serve in the [employer] from [id number] and saw no combat. The patient also reports no significant vocational exposure for pulmonary disease. He has never seen a type soldering machine tender. He has a 20 pack smoking history but quit smoking 45 years ago. He denies EtOH use or abuse history. The patient does have several areas of scabbed over areas on his extremities and states that this is due to him scratching and not due to trauma or injury. The patient is and moved to [place] to be closer to his son and grandson. He lives in an apartment and orders his groceries from [employer] and does his own cooking. He does have a mobile engineer that comes in twice a week to help with housecleaning. He states that his son visits often. The patient is wheelchair-bound secondary to his spastic paralysis and is able to transfer himself independently from bed to chair. He feels more comfortable sitting up and states that he does not like to sleep in bed because of his fear of shortness of breath. The patient has no other acute complaints. Allergies Allergy/AdvReac Type Severity Reaction Status Date / Time No Known Allergies Allergy Verified 08/25/18 22:56 Home Medications Home Medications Medication Instructions Recorded Confirmed Type apixaban 5 mg tablet 5 mg PO BID 02/18/18 08/25/18 History baclofen 10 mg tablet 10 mg PO QID 02/18/18 08/25/18 History brimonidine 0.2 % eye drops 1 drops OP BID ml 02/18/18 08/25/18 History diltiazem ER 240 mg capsule,24 240 mg PO DAILY 02/18/18 08/25/18 History hr,extended release dorzolamide 2 % eye drops 1 drops OP TID 02/18/18 08/25/18 History furosemide 40 mg tablet 40 mg PO DAILY tab 02/18/18 08/25/18 History glipizide 10 mg tablet 10 mg PO BID 02/18/18 08/25/18 History lisinopril 40 mg tablet 40 mg PO DAILY 02/18/18 08/25/18 History methenamine hippurate 1 gram tablet 1 gm PO QPM tab 02/18/18 08/25/18 History multivitamin capsule 1 cap PO DAILY 02/18/18 08/25/18 History sertraline 50 mg tablet 50 mg PO HS 02/18/18 08/25/18 History zolpidem 10 mg tablet 10 mg PO HS PRN tab 02/18/18 08/25/18 History aspirin 81 mg PO HS 08/25/18 08/25/18 History latanoprost 1 drp OPB HS 08/25/18 08/25/18 History metformin 1,000 mg PO BID 08/25/18 08/25/18 History metoprolol succinate 50 mg PO BID 08/25/18 08/25/18 History vit C,Y-Qm-ciril-lutein-zeaxan 1 cap PO BID 08/25/18 08/25/18 History [PreserVision AREDS-2] Patient History Medical History A-fib (Acute) Leg ulcer (Acute) Cellulitis (Chronic) Diabetes 1.5, managed as type 2 (Chronic) Glaucoma (Chronic) HTN (hypertension) (Chronic) Hydrocele (Chronic) Scrotal mass (Chronic) Sepsis (Chronic) Small intestine obstruction (Chronic) Spastic paralysis (Chronic) UTI (urinary tract infection) (Chronic) Urinary retention (Chronic) Surgical History History of toe surgery (Chronic) S/P TURP (Chronic) Social History Communication Ability: Effective Beliefs That Will Affect Care: None Current Living Situation: Alone Other Information That Helps Us Care for You: No Feels Safe at Home: Yes Safety Concerns: Feels Safe At This Time Smoking Status: Former smoker Hx Alcohol Use: No Hx Substance Use: No Review of Systems A total of 12 systems was reviewed and is negative other than as listed above in the HPI Physical Exam Vital Signs (Past 24 Hours): Last Vital Signs Temp 36.7 C 08/26/18 07:00 Pulse 104 H 08/26/18 07:00 Resp 18 08/26/18 07:00 BP 159/81 H 08/26/18 07:00 Pulse Ox 92 08/26/18 07:00 Physical Exam: GENERAL : No acute distress. Pleasant EYES: No icterus, gaze conjugate. Pupils equal NOSE: No evidence of epistaxis. Nasal cannula in place MOUTH: No lesions or candidiasis. Mucosa moist NECK: Supple. LUNGS: Diffuse rales. No specific rhonchi. Positive for posterior lower field bronchospasm. Diaphragmatic excursion within 10 cm HEART: Irregular, irregular, rate at around 100 bpm at the time of my exam ABDOMEN: Soft, NT, ND, BS Present. No rebound tenderness or guarding EXTREMITIES: Bilateral LE edema, sensation is equal bilateral lower extremities. Pedal pulses intact and equal. Feet are warm. NEURO: A&OX3. Pupils equal round and reactive to light. No slurred speech. No facial droop. Tongue midline. Sensation lower extremities equal at the feet. Weak lower extremities but patient able to move legs to side of bed. No other focal deficits identified Results & Data Laboratory Results Abnormal lab results 08/25/18 08/25/18 08/26/18 Range/Units 23:05 23:05 05:34 WBC 18.78 H 18.69 H (4.8-10.8) K/uL Hgb 13.2 L (14.0-18.0) g/dL Hct 41.5 L (42-52) % MCHC 31.5 L 31.8 L (32-36) g/dL RDW Std Deviation 49.7 H 50.0 H (36.4-46.3) fL RDW Coeff of Da 16.5 H 16.9 H (11.5-14.5) % MPV 11.3 H 10.8 H (7.4-10.4) fL Immature Gran # (Auto) 0.07 H 0.05 H (0.00-0.02) K/uL Neut # (Auto) 16.52 H 15.85 H (1.4-6.5) K/uL Lymph # (Auto) 0.87 L (1.2-3.4) K/uL [place] # (Auto) 1.04 H 1.34 H (0.11-0.59) K/uL BUN 25 H (7-18) mg/dl BUN/Creatinine Ratio 29.4 H (10-20) Glucose 214 H (70-99) mg/dl POC Glucose (70-99) Calcium (8.5-10.1) mg/dl AST 10 L (15-37) U/L Alkaline Phosphatase 167 H (45-117) U/L CK/CKMB % Calc 6.1 H (0-3.0) NT-Pro-B Natriuret Pep 1777 H (0-900) pg/ml Albumin 2.8 L (3.4-5.0) gm/dl Globulin 4.5 H (2.5-4.0) gm/dl Albumin/Globulin Ratio 0.6 L (0.9-2) 08/26/18 08/26/18 Range/Units 05:34 07:36 WBC (4.8-10.8) K/uL Hgb (14.0-18.0) g/dL Hct (42-52) % MCHC (32-36) g/dL RDW Std Deviation (36.4-46.3) fL RDW Coeff of Da (11.5-14.5) % MPV (7.4-10.4) fL Immature Gran # (Auto) (0.00-0.02) K/uL Neut # (Auto) (1.4-6.5) K/uL Lymph # (Auto) (1.2-3.4) K/uL [place] # (Auto) (0.11-0.59) K/uL BUN 26 H (7-18) mg/dl BUN/Creatinine Ratio 27.1 H (10-20) Glucose 149 H (70-99) mg/dl POC Glucose 135 H (70-99) Calcium 8.2 L (8.5-10.1) mg/dl AST (15-37) U/L Alkaline Phosphatase (45-117) U/L CK/CKMB % Calc (0-3.0) NT-Pro-B Natriuret Pep (0-900) pg/ml Albumin (3.4-5.0) gm/dl Globulin (2.5-4.0) gm/dl Albumin/Globulin Ratio (0.9-2) Diagnostic Findings XR chest 2V routine HISTORY: re-eval pleural effusion COMPARISON: Chest CTA 08/26/2018. FINDINGS: There are low lung volumes. No pneumothorax. Small bilateral pleural effusions persist. Mild pulmonary vascular congestion has improved. The heart is top normal in size. IMPRESSION: 1. Slight improvement in the pulmonary vascular congestion. 2. Small bilateral pleural effusions persist. Electronically signed by: Shailesh Thompson M.D. 08/26/2018 8:38 AM CHEST CTA for PULMONARY ARTERIES CT DOSE: 621.76 mGy.cm HISTORY: Pulmonary embolus. Difficulty breathing. TECHNIQUE: Multiaxial CT images of the chest were performed following the intravenous administration of contrast to evaluate the pulmonary arteries. Maximal intensity projection images were also obtained. A dose lowering technique was utilized adhering to the principles of ALARA. COMPARISON STUDY: Chest CTA 01/10/2015. FINDINGS: Normal caliber thoracic aorta with no evidence for dissection. Retrograde opacification of the hepatic veins. The heart is mildly enlarged. Coronary artery calcifications. Moderate right and trace left pleural effusions. Mild mediastinal and bilateral hilar lymphadenopathy which is not significantly changed. Dominant subcarinal lymph node measures approximately 3.1 x 1.8 cm. No filling defects within the pulmonary arteries to suggest pulmonary embolus. Calcified right hilar lymph nodes. Mitral annulus calcifications are noted. No suspicious lytic or blastic osseous lesions. No pneumothorax. There are few scattered nodular densities within the bilateral upper lobes. Dominant nodule within the right lung apex on image 218 measures 1 cm. This favors mild inflammatory/infectious change. Lower lobe basilar densities are nonspecific but favor compressive atelectasis from the pleural effusions. IMPRESSION: 1. No evidence for pulmonary embolus. 2. Moderate right and trace left pleural effusions. 3. A few scattered nodular densities within the upper lobes favors mild inflammatory/infectious change. [address] follow up is recommended to ensure resolution. 4. Prominent mediastinal and bilateral hilar lymph nodes, unchanged. Electronically signed by: Shailesh Thompson M.D. 08/26/2018 7:21 AM XR toe RT min 2V CLINICAL HISTORY: 4TH TOE INJURY, EVAL OPEN FX trauma. Pain. COMPARISON: None. DISCUSSION: The bones and joint spaces appear intact. There is no evidence of fracture, dislocation or bony disease. Mild soft tissue edema overlying the fourth toe. IMPRESSION: No acute bony abnormality. Mild soft tissue edema. Electronically signed by: Jose Smith M.D. 05/07/2018 2:21 PM
[2018-08-26] MEDS ORDERED: VANCOMYCIN HCL 1,500 MG in SODIUM CHLORIDE 0.9% 500 ML IV SCH (12:00)
[2018-08-26] MEDS: FUROSEMIDE 20 MG TAB PO SCH (16:37)
--- NOTE | 2018-08-26 19:45 | Hospitalist Progress Note ---
Date of Service August 26, 2018 Assessment & Plan (1) Acute on chronic diastolic CHF (congestive heart failure): Patient received IV lasix last evening, then PO lasix this am, and volume status clinically and radiographically is improved. He still looks mildly volume overloaded during my visit. Will give another dose of PO lasix this afternoon and then re-eval tomorrow. Repeat BMP/mag. Control the a. fib. Wean O2 as tolerated. Last echo was <1 year ago with preserved EF and mild and moderate MS. Defer on repeat echo. Suspect uncontrolled a. fib may have contributed to current decompensation. Present on Admission?: Yes (2) Pneumonia: suspected. CTA chest with mild infiltrates of b/l upper lobes. will treat with doxy 100mg BID x 7 days especially to cover atypicals. Pulmonary has seen in consultation. No dysphagia by history - doubt aspiration. Present on Admission?: Yes (3) Atrial fibrillation: rapid a. fib at presentation but HRs became nicely controlled overnight with simply reinstituting his normal meds. Cont CCB, cont BB. No thoracentesis planned - resume his eliquis BID. Cont to keep on telemetry. Present on Admission?: Yes (4) Chronic indwelling Coon catheter: Presumably due to neurogenic bladder in the setting of his spastic paralysis condition. Need to figure out when it was last exchanged. Present on Admission?: Yes (5) Pleural effusion: appreciate pulmonary consultation. too small for thoracentesis. fluid likely due to diastolic CHF. resume eliquis since thoracentesis will be deferred. Present on Admission?: Yes (6) Diabetes mellitus: control adequate thus far with sliding scale novolog. low threshold for basal insulin. T2DM diet, ac/hs BSGs. Present on Admission?: Yes (7) Peripheral arterial disease: s/p RLE intervention in the past by Dr. Paul. wound care has seen for his numerous wounds. they are concerned about vasculature. I share those concerns. will recheck an arterial duplex of both legs tomorrow. resume aspirin 81mg daily. uncertain why he is not on statin therapy. Present on Admission?: Yes (8) Constipation: dulcolax suppos x 1 today then bowel regimen of miralax with senna starting tomorrow (9) Wound of foot: multiple issues with legs and feet. wound care has seen. appreciate their consultation. arterial duplex ordered to reassess circulation. (10) Essential (primary) hypertension: continue outpatient meds (11) Cellulitis: was placed on broad-spectrum IV abx yesterday for cellulitis of left leg. during my exam today I believe most of what is on his shins is chronic stasis changes and chronic stasis dermatitis. I don't appreciate a significant cellulitis. The doxy for the lungs will cover the legs to a degree if there is indeed any minimal infectious process. monitor (12) Paraplegia: acquired 2nd to spastic paralysis condition PT, OT (13) DVT prophylaxis: resume eliquis BID patient uses an electric scooter at home [id number] will have PT, OT see -- he lives alone Subjective patient feels better today. less dyspnea. denies significant cough. denies pain in legs. denies chest pain. c/o constipation - no BM in 3 days. tele overnight - nicely rate-controlled a. fib. Constitutional: no fever and no chills Respiratory: no hemoptysis and no wheezing Cardiovascular: no chest pain Gastrointestinal: + bloating and + constipation; no abdominal pain, no nausea, no vomiting and no diarrhea/loose stools Physical Exam Vital Signs (Past 24 Hours): Last Vital Signs Temp 36.8 C 08/26/18 19:42 Pulse 61 08/26/18 19:42 Resp 20 08/26/18 19:42 BP 144/81 H 08/26/18 19:42 Pulse Ox 94 08/26/18 19:42 Constitutional: + obese; no acute distress and not ill appearing ENMT: external ear and nose normal, oropharynx normal Respiratory: no respiratory distress Auscultation: + rales (fine, bases); no rhonchi and no wheezes Cardiovascular: Rate/Rhythm: regular rate; + abnormal rhythm (irregular ) Heart Sounds: normal S1, normal S2 and + murmur (1-2/6 systolic LSB) Vessels: + JVD (very mild), posterior tibial pulses present (but 1+ at best) and dorsalis pedis pulses present (but 1+ at best) Gastrointestinal (Abdomen): Inspection/Auscultation: + abdomen distended (mild-moderate) Percussion/Palpation: + hernia (umbilical - mod/large - reducible ); abdomen nontender, no guarding, abdomen not rigid, no hepatos plenomegaly and no abdominal mass Skin: venous stasis changes b/l shins; no superimposed cellulitis; minimal warmth b/l; numerous toes with preulcers and abrasions/scabbing on several toes (dorsal surface) Neurologic: paraplegia of legs Psychiatric: A+Ox3, euthymic affect Results & Data Laboratory Results Laboratory Results - last 24 hr 08/25/18 08/25/18 08/26/18 23:05 23:05 05:34 WBC 18.78 H 18.69 H RBC 5.52 5.02 Hgb 14.4 13.2 L Hct 45.7 41.5 L MCV 82.8 82.7 MCH 26.1 26.3 MCHC 31.5 L 31.8 L RDW Std Deviation 49.7 H 50.0 H RDW Coeff of Da 16.5 H 16.9 H Plt Count 252 232 MPV 11.3 H 10.8 H Immature Gran % (Auto) 0.4 0.3 Neut % (Auto) 88.0 84.7 Lymph % (Auto) 4.6 7.2 [place] % (Auto) 5.5 7.2 Eos % (Auto) 1.4 0.4 Baso % (Auto) 0.1 0.2 Immature Gran # (Auto) 0.07 H 0.05 H Neut # (Auto) 16.52 H 15.85 H Lymph # (Auto) 0.87 L 1.34 [place] # (Auto) 1.04 H 1.34 H Eos # (Auto) 0.26 0.07 Baso # (Auto) 0.02 0.04 Sodium 139 Potassium 4.3 Chloride 100 Carbon Dioxide 30 Anion Gap 9.0 BUN 25 H Creatinine 0.85 Est Cr Clr Drug Dosing 96.8 Est GFR ( Amer) 100.2 Est GFR (Non-Af Amer) 86.4 BUN/Creatinine Ratio 29.4 H Glucose 214 H POC Glucose Calcium 9.1 Total Bilirubin 0.9 AST 10 L ALT 16 Alkaline Phosphatase 167 H Total Creatine Kinase 59 CK-MB (CK-2) 3.6 CK/CKMB % Calc 6.1 H Troponin I < 0.015 NT-Pro-B Natriuret Pep 1777 H Total Protein 7.3 Albumin 2.8 L Globulin 4.5 H Albumin/Globulin Ratio 0.6 L Lipase 201 03/04/19 03/04/19 03/04/19 05:34 07:36 12:03 WBC RBC Hgb Hct MCV MCH MCHC RDW Std Deviation RDW Coeff of Da Plt Count MPV Immature Gran % (Auto) Neut % (Auto) Lymph % (Auto) [place] % (Auto) Eos % (Auto) Baso % (Auto) Immature Gran # (Auto) Neut # (Auto) Lymph # (Auto) [place] # (Auto) Eos # (Auto) Baso # (Auto) Sodium 139 Potassium 3.9 Chloride 103 Carbon Dioxide 30 Anion Gap 6.0 BUN 26 H Creatinine 0.97 Est Cr Clr Drug Dosing 84.2 Est GFR ( Amer) 89.4 Est GFR (Non-Af Amer) 77.1 BUN/Creatinine Ratio 27.1 H Glucose 149 H POC Glucose 135 H 157 H Calcium 8.2 L Total Bilirubin AST ALT Alkaline Phosphatase Total Creatine Kinase CK-MB (CK-2) CK/CKMB % Calc Troponin I NT-Pro-B Natriuret Pep Total Protein Albumin Globulin Albumin/Globulin Ratio Lipase 08/26/18 16:32 WBC RBC Hgb Hct MCV MCH MCHC RDW Std Deviation RDW Coeff of Da Plt Count MPV Immature Gran % (Auto) Neut % (Auto) Lymph % (Auto) [place] % (Auto) Eos % (Auto) Baso % (Auto) Immature Gran # (Auto) Neut # (Auto) Lymph # (Auto) [place] # (Auto) Eos # (Auto) Baso # (Auto) Sodium Potassium Chloride Carbon Dioxide Anion Gap BUN Creatinine Est Cr Clr Drug Dosing Est GFR ( Amer) Est GFR (Non-Af Amer) BUN/Creatinine Ratio Glucose POC Glucose 150 H Calcium Total Bilirubin AST ALT Alkaline Phosphatase Total Creatine Kinase CK-MB (CK-2) CK/CKMB % Calc Troponin I NT-Pro-B Natriuret Pep Total Protein Albumin Globulin Albumin/Globulin Ratio Lipase (1) Pneumonia Pneumonia type: due to unspecified organism Laterality: bilateral Lung location: upper lobe of lung Qualified Code(s): J18.1 - Lobar pneumonia, unspecified organism (2) Atrial fibrillation Atrial fibrillation type: chronic Qualified Code(s): I48.2 - Chronic atrial fibrillation (3) Diabetes mellitus Diabetes mellitus type: type 2 Diabetes mellitus long-term insulin use: without superintendent marine oil terminal 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
[2018-08-26] MEDS ORDERED: BISACODYL 10 MG SUPP PR STA (19:46)
[2018-08-26] MEDS: DOXYCYCLINE HYCLATE 100 MG CAP PO SCH (21:12)
[2018-08-26] MEDS: METHENAMINE HIPPURATE 1 GM TAB PO SCH (21:12)
[2018-08-26] MEDS: SERTRALINE HCL 50 MG TABLET PO SCH (21:12)
[2018-08-26] MEDS: LATANOPROST 0.005% OP SOLN 2.5 ML BTL OPB SCH (21:13)
[2018-08-27] MEDS ORDERED: BISACODYL 10 MG SUPP PR ONE (00:45)
[2018-08-27 06:09] LABS: Basophils # (auto) 0.01 K/uL (0-0.2); Basophils % (auto) 0.1 %; Eosinophils # (auto) 0.19 K/uL (0-0.5); Eosinophils % (auto) 1.7 %; Hematocrit (blood only) 41.4 % (42-52); Hemoglobin 13.2 g/dL (14.0-18.0); Immature Granulocytes # (auto) 0.03 K/uL (0.00-0.02); Immature Granulocytes % (auto) 0.3 %; Lymphocytes # (auto) 1.04 K/uL (1.2-3.4); Lymphocytes % (auto) 9.1 %; Mean Corpuscular Hgb Conc 31.9 g/dL (32-36); Mean Platelet Volume 11.1 fL (7.4-10.4); Monocytes # (auto) 1.15 K/uL (0.11-0.59); Monocytes % (auto) 10.1 %; Neutrophils # (auto) 8.98 K/uL (1.4-6.5); Neutrophils % (auto) 78.7 %; Platelet Count 208 K/uL (130-400); RDW Standard Deviation 51.1 fL (36.4-46.3); Red Blood Count 4.99 M/uL (4.7-6.1)
[2018-08-27 06:41] LABS: BUN Creatinine Ratio 25.1 (10-20); Calcium 8.6 mg/dl (8.5-10.1); Creatinine Clr Calc Pharmacy 85.8 ml/min; Est GFR (African American) 91.7; Est GFR (Non-African American) 79.1; Magnesium 1.9 mg/dl (1.8-2.4); Potassium 3.5 mmol/L (3.5-5.1)
[2018-08-27] MEDS ORDERED: VANCOMYCIN TROUGH ONE (07:30)
[2018-08-27] MEDS: dilTIAZem ER 120 MG CAPCR PO SCH (07:47)
[2018-08-27] MEDS: DOXYCYCLINE HYCLATE 100 MG CAP PO SCH ×2 (07:47→21:26)
[2018-08-27] MEDS: LISINOPRIL 40 MG TAB PO SCH (07:47)
[2018-08-27] MEDS: METOPROLOL SUCC 50MG EXT REL TAB PO SCH (07:47)
[2018-08-27] MEDS: POLYETHYLENE (MIRALAX) 17 GM PACK PO SCH ×2 (07:47→19:23)
[2018-08-27] MEDS: FUROSEMIDE 40 MG TAB PO SCH (07:48)
[2018-08-27] MEDS: CEROVITE ADV FORMULA TAB PO SCH (07:48)
[2018-08-27] MEDS: BRIMONIDINE TARTRATE 0.2% 5ML OP SCH ×2 (07:48→21:24)
[2018-08-27] MEDS: MULTIVITAMIN TAB PO SCH (07:48)
[2018-08-27] MEDS: BACLOFEN 10 MG TAB PO SCH ×4 (07:48→21:26)
[2018-08-27] MEDS: DORZOLAMIDE HCL 2% OPH SOLN 10 ML BTL OP SCH ×3 (07:48→21:27)
[2018-08-27] MEDS: SENNA 8.6 MG TAB PO SCH (08:36)
[2018-08-27] MEDS: ASPIRIN 81 MG ECTAB PO SCH (08:36)
[2018-08-27] MEDS: APIXABAN 5 MG TABLET PO SCH ×2 (08:36→21:25)
[2018-08-27] MEDS: INSULIN ASPART 100 UNITS/ML 3 ML PEN SC SCH ×4 (08:36→21:31)
[2018-08-27] MEDS ORDERED: MICONAZOLE NITRATE POWDER 43 GM EXT PRN (14:31)
--- NOTE | 2018-08-27 15:49 | Hospitalist Progress Note ---
Date of Service August 27, 2018 Assessment & Plan (1) Acute on chronic diastolic CHF (congestive heart failure): (2) Pneumonia: (3) Atrial fibrillation: (4) Chronic indwelling Coon catheter: (5) Pleural effusion: (6) Diabetes mellitus: (7) Peripheral arterial disease: (8) Constipation: (9) Wound of foot: (10) Essential (primary) hypertension: (11) Cellulitis: (12) Paraplegia: (13) DVT prophylaxis: 73-year-old white male admitted on August 23, 2018 because of CHF exacerbation Acute on chronic diastolic CHF received IV lasix l upon admission yesterday Lasix was changed to p.o., do not feel he has continued volume overloaded to me, So far no documented negative in and out, will start fluid restriction, cont oral Lasix, calculation in and out Wean O2 as tolerated. Last echo was <1 year ago with preserved EF and mild and moderate MS. Defer on repeat echo. Suspect he has pneumonia, CTA chest with mild infiltrates of b/l upper lobes. Continue with doxy 100mg BID x 7 days especially to cover atypicals. Cardiac pulse a few milliseconds yesterday and today, checked the electrolytes were unremarkable , patient is asymptomatic rapid a. fib at admission, HRs currently controlled, is on Eliquis for stroke prevention Chronic indwelling Coon catheter: Pleural effusion, too small for thoracentesis, fluid likely due to diastolic CHF, continue treat for the CHF resume eliquis since thoracentesis will be deferred. Diabetes mellitus, peripheral artery disease, local wounds, stable continue current care, patient report right lower extremity mild cold is not new, he had a procedure done by Dr. Paul before, feel do not need to repeat right lower extremity artery Doppler ultrasound, continue wound care continue aspirin resume aspirin 81mg daily. Possible cellulitis left leg , was placed on broad-spectrum IV abx 2 days ago, did not see significant cellulitis, continue covered by doxycycline, DVT prophylaxis: Is on Eliquis PT OT and social science research assistant for discharge plan Subjective patient feels ok, still have sob, less dyspnea. denies significant cough, denies sputum and wheezing denies pain in legs. denies chest pain. Per nursing staff reported that he has a few ms pulse, was having this phenom enon yesterday too, patient was asymptomatic Physical Exam Vital Signs (Past 24 Hours): Last Vital Signs Temp 36.6 C 08/27/18 15:17 Pulse 61 08/27/18 15:17 Resp 18 08/27/18 15:17 BP 125/68 08/27/18 15:17 Pulse Ox 93 08/27/18 15:17 Physical Exam: Frail, ill-appearing, pleasant, no acute distress external ear and nose normal, oropharynx normal no respiratory distress Auscultation: + rales in bilateral lung base,; no rhonchi and no wheezes Rate/Rhythm: irregular rate; normal S1, normal S2 and + murmur (1-2/6 systolic LSB) + abdomen distended , soft nontender bowel sounds positive venous stasis changes b/l shins; no superimposed cellulitis; Right lower extremity is a little bit colder than left lower extremity , patient reported it is not new paraplegia of legs, renal nerves II through XII was intact and there was no local deficits Results & Data Laboratory Results Laboratory Results - last 24 hr 08/26/18 08/26/18 08/27/18 16:32 20:08 05:33 WBC RBC Hgb Hct MCV MCH MCHC RDW Std Deviation RDW Coeff of Da Plt Count MPV Immature Gran % (Auto) Neut % (Auto) Lymph % (Auto) [place] % (Auto) Eos % (Auto) Baso % (Auto) Immature Gran # (Auto) Neut # (Auto) Lymph # (Auto) [place] # (Auto) Eos # (Auto) Baso # (Auto) Sodium 140 Potassium 3.5 Chloride 102 Carbon Dioxide 31 Anion Gap 6.0 BUN 24 H Creatinine 0.95 Est Cr Clr Drug Dosing 85.8 Est GFR ( Amer) 91.7 Est GFR (Non-Af Amer) 79.1 BUN/Creatinine Ratio 25.1 H Glucose 160 H POC Glucose 150 H 144 H Calcium 8.6 Phosphorus Magnesium 1.9 TSH 08/27/18 08/27/18 08/27/18 05:33 06:58 11:43 WBC 11.40 H RBC 4.99 Hgb 13.2 L Hct 41.4 L MCV 83.0 MCH 26.5 MCHC 31.9 L RDW Std Deviation 51.1 H RDW Coeff of Da 17.0 H Plt Count 208 MPV 11.1 H Immature Gran % (Auto) 0.3 Neut % (Auto) 78.7 Lymph % (Auto) 9.1 [place] % (Auto) 10.1 Eos % (Auto) 1.7 Baso % (Auto) 0.1 Immature Gran # (Auto) 0.03 H Neut # (Auto) 8.98 H Lymph # (Auto) 1.04 L [place] # (Auto) 1.15 H Eos # (Auto) 0.19 Baso # (Auto) 0.01 Sodium Potassium Chloride Carbon Dioxide Anion Gap BUN Creatinine Est Cr Clr Drug Dosing Est GFR ( Amer) Est GFR (Non-Af Amer) BUN/Creatinine Ratio Glucose POC Glucose 181 H 201 H Calcium Phosphorus Magnesium TSH 08/27/18 11:51 WBC RBC Hgb Hct MCV MCH MCHC RDW Std Deviation RDW Coeff of Da Plt Count MPV Immature Gran % (Auto) Neut % (Auto) Lymph % (Auto) [place] % (Auto) Eos % (Auto) Baso % (Auto) Immature Gran # (Auto) Neut # (Auto) Lymph # (Auto) [place] # (Auto) Eos # (Auto) Baso # (Auto) Sodium Potassium Chloride Carbon Dioxide Anion Gap BUN Creatinine Est Cr Clr Drug Dosing Est GFR ( Amer) Est GFR (Non-Af Amer) BUN/Creatinine Ratio Glucose POC Glucose Calcium Phosphorus 4.0 Magnesium TSH 1.870 Microbiology 08/26/18 00:07 Blood Blood Culture - Preliminary No growth to date. 08/26/18 00:00 Blood Blood Culture - Preliminary No growth to date. (1) Pneumonia Pneumonia type: due to unspecified organism Laterality: bilateral Lung location: upper lobe of lung Qualified Code(s): J18.1 - Lobar pneumonia, unspecified organism (2) Atrial fibrillation Atrial fibrillation type: chronic Qualified Code(s): I48.2 - Chronic atrial fibrillation (3) Diabetes mellitus Diabetes mellitus type: type 2 Diabetes mellitus custodial insulin use: without intermediate project manager 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
[2018-08-27] MEDS: FUROSEMIDE 20 MG TAB PO SCH (16:00)
--- NOTE | 2018-08-27 19:02 | Pulmonology Progress Note ---
Date of Service August 27, 2018 Assessment & Plan (1) Pleural effusion: * Initial chest X ray on admission showed components of congestive heart failure. Pulmonary vasculature is prominent and there is slight blunting the lateral costophrenic angles bilaterally. * A CTA was completed and was negative for pulmonary emboli * There was incidental finding of a moderate right pleural effusion * Patient is mildly hypoxic this morning tolerating room air at rest * Bedside ultrasound yesterday showed minimal fluid on the right and no fluid on the left. * We will continue to monitor for clinical signs of hypoxia * Continue with diuresis for congestive heart failure per cardiology * Monitor clinically (2) Hypoxia: * Patient has improvement. * Past medical history significant 20 pack years of smoking but quit 45 years ago * Suspect that hypoxia secondary to congestive heart failure and pleural effusion on admission * Continue with diuresis * Leukocytosis present but no fever or sputum production * There is some Possibility of bilateral upper lobe inflammatory infectious change on CT. * Chronic prominent mediastinal and bilateral hilar lymph nodes unchanged from prior * Continue doxycycline 100 mg every 12 hours for cellulitis. 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 Please refer to Dr. Hurley's addendum for further recommendations. Supervising Physician Co-Signing Physician Notes The patient was seen and examined by me along with Chandra Ohara PA-C and agree with his assessment and recommendations. Will continue with current plan of care as prescribed. Subjective Patient seen at bedside. He continues to have some periodic shortness of breath. He did have a long pauses and currently that he has pacer pads in place. Cardiology has been consulted but has not seen the patient as of yet. Patient denies any chest pain or tightness. He has no cough or sputum. He has no fever, sweats, chills, rigors. He denies any nausea or vomiting. He has no other acute complaints. Spasms have been fairly controlled. Physical Exam Vital Signs (Past 24 Hours): Last Vital Signs Temp 36.6 C 08/27/18 15:17 Pulse 61 08/27/18 15:17 Resp 18 08/27/18 15:17 BP 125/68 08/27/18 15:17 Pulse Ox 93 08/27/18 15:17 Physical Exam: GENERAL : No acute distress EYES: No icterus, gaze conjugate NOSE: No evidence of epistaxis MOUTH: No lesions or candidiasis NECK: Supple LUNGS: Decreased aeration at the bilateral bases. No specific rales or rhonchi. Patient does have some very mild scattered wheezes. Good inspiratory effort. HEART: Regular, rate controlled ABDOMEN: Soft, NT, ND, BS Present EXTREMITIES: Bilateral LE edema, pedal pulses intact NEURO: A&OX3 Results & Data Laboratory Results Abnormal lab results 08/26/18 08/27/18 08/27/18 Range/Units 20:08 05:33 05:33 WBC 11.40 H (4.8-10.8) K/uL Hgb 13.2 L (14.0-18.0) g/dL Hct 41.4 L (42-52) % MCHC 31.9 L (32-36) g/dL RDW Std Deviation 51.1 H (36.4-46.3) fL RDW Coeff of Da 17.0 H (11.5-14.5) % MPV 11.1 H (7.4-10.4) fL Immature Gran # (Auto) 0.03 H (0.00-0.02) K/uL Neut # (Auto) 8.98 H (1.4-6.5) K/uL Lymph # (Auto) 1.04 L (1.2-3.4) K/uL [place] # (Auto) 1.15 H (0.11-0.59) K/uL BUN 24 H (7-18) mg/dl BUN/Creatinine Ratio 25.1 H (10-20) Glucose 160 H (70-99) mg/dl POC Glucose 144 H (70-99) 08/27/18 08/27/18 08/27/18 Range/Units 06:58 11:43 16:18 WBC (4.8-10.8) K/uL Hgb (14.0-18.0) g/dL Hct (42-52) % MCHC (32-36) g/dL RDW Std Deviation (36.4-46.3) fL RDW Coeff of Da (11.5-14.5) % MPV (7.4-10.4) fL Immature Gran # (Auto) (0.00-0.02) K/uL Neut # (Auto) (1.4-6.5) K/uL Lymph # (Auto) (1.2-3.4) K/uL [place] # (Auto) (0.11-0.59) K/uL BUN (7-18) mg/dl BUN/Creatinine Ratio (10-20) Glucose (70-99) mg/dl POC Glucose 181 H 201 H 188 H (70-99)
[2018-08-27] MEDS ORDERED: MAGNESIUM SULFATE / D5W 1 GM/100 ML BAG IV ONE (20:30)
[2018-08-27] MEDS: POTASSIUM CHLORIDE / WTR 10 MEQ/100 ML PLCT IV SCH ×2 (21:24→22:45)
[2018-08-27] MEDS: METHENAMINE HIPPURATE 1 GM TAB PO SCH (21:26)
[2018-08-27] MEDS: SERTRALINE HCL 50 MG TABLET PO SCH (21:27)
[2018-08-27] MEDS: LATANOPROST 0.005% OP SOLN 2.5 ML BTL OPB SCH (21:28)
[2018-08-28] MEDS: POTASSIUM CHLORIDE / WTR 10 MEQ/100 ML PLCT IV SCH (00:16)
[2018-08-28 08:01] LABS: Creatinine Clr Calc Pharmacy 89.5 ml/min; Est GFR (African American) 96.6; Est GFR (Non-African American) 83.3; Magnesium 2.2 mg/dl (1.8-2.4)
[2018-08-28 08:02] LABS: Phosphorus 3.8 mg/dl (2.5-4.9)
[2018-08-28] MEDS: BRIMONIDINE TARTRATE 0.2% 5ML OP SCH ×2 (08:04→20:47)
[2018-08-28] MEDS: LISINOPRIL 40 MG TAB PO SCH (08:05)
[2018-08-28] MEDS: dilTIAZem ER 120 MG CAPCR PO SCH (08:05)
[2018-08-28] MEDS: FUROSEMIDE 40 MG TAB PO SCH (08:05)
[2018-08-28] MEDS: ASPIRIN 81 MG ECTAB PO SCH (08:05)
[2018-08-28] MEDS: SENNA 8.6 MG TAB PO SCH (08:05)
[2018-08-28] MEDS: MULTIVITAMIN TAB PO SCH (08:06)
[2018-08-28] MEDS: CEROVITE ADV FORMULA TAB PO SCH (08:06)
[2018-08-28] MEDS: APIXABAN 5 MG TABLET PO SCH (08:06)
[2018-08-28] MEDS: BACLOFEN 10 MG TAB PO SCH ×4 (08:06→20:48)
[2018-08-28] MEDS: POLYETHYLENE (MIRALAX) 17 GM PACK PO SCH ×2 (08:06→08:14)
[2018-08-28] MEDS: DORZOLAMIDE HCL 2% OPH SOLN 10 ML BTL OP SCH ×3 (08:07→20:46)
[2018-08-28] MEDS: DOXYCYCLINE HYCLATE 100 MG CAP PO SCH ×2 (08:07→20:47)
[2018-08-28] MEDS: INSULIN ASPART 100 UNITS/ML 3 ML PEN SC SCH ×4 (08:08→20:49)
--- NOTE | 2018-08-28 09:41 | Cardiology Consultation ---
Date of Consultation August 28, 2018 Assessment & Plan (1) Atrial fibrillation with RVR: Patient was admitted with shortness of breath and hypoxia. Upon presentation he was in afib with RVR. His rate has improved with his home doses of metoprolol succinate and diltiazem. He has had evidence of multiple pauses on telemetry up to 6.7 seconds in duration. Recommend discontinuing his AV roque blocking agents. However he will likely need these assisted for rate control therefore we will plan for pacemaker implantation tomorrow. (2) Peripheral arterial disease: (3) Acute on chronic diastolic CHF (congestive heart failure): Reports significant improvement in his shortness of breath. Only appears mildly hypervolemic on exam. Continue Lasix. Daily weights. Low sodium diet. (4) Essential (primary) hypertension: (5) Hypoxia: Supervising Physician Co-Signing Physician Notes Patient seen and examined. Agree with above, tachybradycardia syndrome with long pauses. He should have a pacemaker for bradycardia support. History of Present Illness Attending Physician: Harjeet Altamirano MD, PhD, [facility] History of Present Illness Mr. Tran is a 73 year old male with a medical history significant for atrial fibrillation, peripheral arterial disease, history of recurrent lower extremity wounds, chronic lower extremity edema, type 2 diabetes, spastic paralysis (wheelchair dependent). He was admitted on 08/25/18 with shortness of breath. He states that for several days prior to admission he had worsening shortness of breath. He also had orthopnea. He is wheelchair bound and activity level is very limited. For several weeks he had also been experiencing lightheadedness without near syncope or syncope. No palpitations or chest discomfort. He has chronic lower extremity edema and noticed worsening edema in the days leading up to admission. He did not miss any doses of his home medications. Upon arrival he was in atrial fibrillation with RVR. He was also hypoxic and chest xray demonstrated pulmonary vascular congestion and right sided pleural effusion. He is being diuresed with Lasix and notes improvement in his shortness of breath and edema. He has had multiple pauses over the past 24 hours, the longest being 6.7 seconds overnight. ROS: 10 point review of systems completed and otherwise negative unless stated in HPI. Social Hx: . Lives alone with assistance. History of tobacco use, quit 45 years ago. No alcohol or drug use. Allergies Allergy/AdvReac Type Severity Reaction Status Date / Time No Known Allergies Allergy Verified 08/25/18 22:56 Home Medications Home Medications Medication Instructions Recorded Confirmed Type apixaban 5 mg tablet 5 mg PO BID 02/18/18 08/25/18 History baclofen 10 mg tablet 10 mg PO QID 02/18/18 08/25/18 History brimonidine 0.2 % eye drops 1 drops OP BID ml 02/18/18 08/25/18 History diltiazem ER 240 mg capsule,24 240 mg PO DAILY 02/18/18 08/25/18 History hr,extended release dorzolamide 2 % eye drops 1 drops OP TID 02/18/18 08/25/18 History furosemide 40 mg tablet 40 mg PO DAILY tab 02/18/18 08/25/18 History glipizide 10 mg tablet 10 mg PO BID 02/18/18 08/25/18 History lisinopril 40 mg tablet 40 mg PO DAILY 02/18/18 08/25/18 History methenamine hippurate 1 gram tablet 1 gm PO QPM tab 02/18/18 08/25/18 History multivitamin capsule 1 cap PO DAILY 02/18/18 08/25/18 History sertraline 50 mg tablet 50 mg PO HS 02/18/18 08/25/18 History zolpidem 10 mg tablet 10 mg PO HS PRN tab 02/18/18 08/25/18 History aspirin 81 mg PO HS 08/25/18 08/25/18 History latanoprost 1 drp OPB HS 08/25/18 08/25/18 History metformin 1,000 mg PO BID 08/25/18 08/25/18 History metoprolol succinate 50 mg PO BID 08/25/18 08/25/18 History vit C,J-Wb-jpsaw-lutein-zeaxan 1 cap PO BID 08/25/18 08/25/18 History [PreserVision AREDS-2] Patient History Medical History A-fib (Acute) Leg ulcer (Acute) Cellulitis (Chronic) Diabetes 1.5, managed as type 2 (Chronic) Glaucoma (Chronic) HTN (hypertension) (Chronic) Hydrocele (Chronic) Scrotal mass (Chronic) Sepsis (Chronic) Small intestine obstruction (Chronic) Spastic paralysis (Chronic) UTI (urinary tract infection) (Chronic) Urinary retention (Chronic) Surgical History History of toe surgery (Chronic) S/P TURP (Chronic) Social History Communication Ability: Effective Beliefs That Will Affect Care: None Current Living Situation: Alone Other Information That Helps Us Care for You: No Feels Safe at Home: Yes Safety Concerns: Feels Safe At This Time Smoking Status: Former smoker Hx Alcohol Use: No Hx Substance Use: No Physical Exam Vital Signs (Past 24 Hours): Last Vital Signs Temp 36.8 C 08/28/18 07:29 Pulse 70 08/28/18 08:00 Resp 18 08/28/18 07:29 BP 177/90 H 08/28/18 07:29 Pulse Ox 95 08/28/18 07:29 Physical Exam: General: No acute distress, comfortable. HEENT: Head is normal. PERRLA. EOMI. Sclerae anicteric. Ears, nose and throat unremarkable. Mucous membranes moist. Neck: Normal carotid upstrokes, no bruits. No appreciable JVD. Lungs: Clear to auscultation bilaterally without rales, rhonchi or wheezes. Cardiac: Irregularly irregular, controlled rate. S1 and S2 normal. Grade 2/6 systolic murmur. Abdomen: Soft and nontender. Bowel sounds normal. No mass or organomegaly. No abdominal bruit. Extremities/vascular: Radial pulses 2+ bilaterally. DP/PT pulses nonpalpable. Capillary refill normal. 1+ pretibial edema bilaterally. Multiple wounds on toes bilaterally, scabbed over. Ulcerations medial R leg dressed. Changes consistent with chronic venous insufficiency. Neurologic: Nonfocal Psychiatric: Affect appropriate. Alert and oriented. Results & Data Laboratory Results Laboratory Results - last 24 hr 08/27/18 08/27/18 08/27/18 11:43 11:51 16:18 Creatinine Est Cr Clr Drug Dosing Est GFR ( Amer) Est GFR (Non-Af Amer) POC Glucose 201 H 188 H Phosphorus 4.0 Magnesium TSH 1.870 08/28/18 08/28/18 06:53 07:27 Creatinine 0.91 Est Cr Clr Drug Dosing 89.5 Est GFR ( Amer) 96.6 Est GFR (Non-Af Amer) 83.3 POC Glucose 164 H Phosphorus 3.8 Magnesium 2.2 TSH ECG Additional Comments: EKG 08/25/18: Afib with RVR at 120 bpm, bifasicular block, nonspecific T wave abnormality Telemetry reviewed: Afib with controlled ventricular response. Multiple pauses over past 24 hours ranging from 3-6.7 seconds
[2018-08-28] MEDS: FUROSEMIDE 20 MG TAB PO SCH (16:16)
--- NOTE | 2018-08-28 16:22 | Hospitalist Progress Note ---
Date of Service August 28, 2018 Assessment & Plan (1) Acute on chronic diastolic CHF (congestive heart failure): (2) Pneumonia: (3) Atrial fibrillation: (4) Chronic indwelling Coon catheter: (5) Pleural effusion: (6) Diabetes mellitus: (7) Peripheral arterial disease: (8) Constipation: (9) Wound of foot: (10) Essential (primary) hypertension: (11) Cellulitis: (12) Paraplegia: (13) DVT prophylaxis: 73-year-old white male admitted on August 23, 2018 because of CHF exacerbation Acute on chronic diastolic CHF received IV lasix l upon admission , Lasix was changed to p.o 2 days ago,., do not feel he has continued volume overloaded So far no documented negative in and out, continue fluid restriction, cont oral Lasix, calculation in and out, last 24 hours negative was 300ml Wean O2 as tolerated. Last echo was <1 year ago with preserved EF and mild and moderate MS. Defer on repeat echo. Suspect he has pneumonia, CTA chest with mild infiltrates of b/l upper lobes. Continue with doxy 100mg BID x 7 days especially to cover atypicals. 3/7 days Cardiac pause a few seconds highest was 6.7 seconds in duration. has discontinued his AV roque blocking agents. 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 Diabetes mellitus, peripheral artery disease, local wounds, stable continue current care, patient report right lower extremity mild cold is not new, he had a procedure done by Dr. Paul before, feel do not need to repeat right lower extremity artery Doppler ultrasound, continue wound care continue aspirin, resume aspirin 81mg daily. Possible cellulitis left leg , was placed on broad-spectrum IV abx 2 days ago, did not see significant cellulitis, continue covered by doxycycline, DVT prophylaxis: Is on Eliquis PT OT and social work manager for discharge plan, patient tomorrow, n.p.o. midnight, Eliquis has been on hold Subjective feels have mild sob, denies significant cough, denies sputum and wheezing denies pain in legs. denies chest pain. Denied dizziness palpitation, there was a few sec pulse, patient was asymptomatic Bilateral lower extremity still erythema however has no swelling, other review of system were negative Physical Exam 2 Vital Signs (Past 24 Hours): Last Vital Signs Temp 36.8 C 08/28/18 15:40 Pulse 62 08/28/18 15:40 Resp 18 08/28/18 15:40 BP 127/69 08/28/18 15:40 Pulse Ox 94 08/28/18 15:40 Physical Exam: Frail, ill-appearing, pleasant, speak for sentence, no acute distress external ear and nose normal, oropharynx normal no respiratory distress Auscultation: Occasional rales in bilateral lung base,; no rhonchi and no wheezes Rate/Rhythm: irregular rate; normal S1, normal S2 and + murmur (1-2/6 systolic LSB) - abdomen distended , soft nontender bowel sounds positive venous stasis changes b/l shins; no superimposed cellulitis, with recent erythema, however no hot or drainage or swelling; Right lower extremity is a little bit colder than left lower extremity , patient reported it is not new paraplegia of legs, renal nerves II through XII was intact and there was no local deficits Results & Data Laboratory Results Laboratory Results - last 24 hr 08/27/18 08/28/18 08/28/18 16:18 06:53 07:27 Creatinine 0.91 Est Cr Clr Drug Dosing 89.5 Est GFR ( Amer) 96.6 Est GFR (Non-Af Amer) 83.3 POC Glucose 188 H 164 H Phosphorus 3.8 Magnesium 2.2 08/28/18 11:20 Creatinine Est Cr Clr Drug Dosing Est GFR ( Amer) Est GFR (Non-Af Amer) POC Glucose 246 H Phosphorus Magnesium (1) Diabetes mellitus Diabetes mellitus complication status: with skin complications Diabetes mellitus prison insulin use: without roasterman use Diabetes mellitus type: type 2 (2) Atrial fibrillation Atrial fibrillation type: chronic Qualified Code(s): I48.2 - Chronic atrial fibrillation (3) Cellulitis Laterality: unspecified laterality Site of cellulitis: extremity Site of cellulitis of extremity: lower extremity Qualified Code(s): L03.119 - Cellulit is of unspecified part of limb (4) Pneumonia Laterality: bilateral Lung location: upper lobe of lung Pneumonia type: due to unspecified organism Qualified Code(s): J18.1 - Lobar pneumonia, unspecified organism
[2018-08-28] MEDS: LATANOPROST 0.005% OP SOLN 2.5 ML BTL OPB SCH (20:45)
[2018-08-28] MEDS: SERTRALINE HCL 50 MG TABLET PO SCH (20:48)
[2018-08-28] MEDS: METHENAMINE HIPPURATE 1 GM TAB PO SCH (20:48)
[2018-08-29] MEDS: POLYETHYLENE (MIRALAX) 17 GM PACK PO SCH (07:28)
[2018-08-29 07:50] LABS: Creatinine Clr Calc Pharmacy 92.7 ml/min; Est GFR (African American) 99.2; Est GFR (Non-African American) 85.6
[2018-08-29] MEDS: BRIMONIDINE TARTRATE 0.2% 5ML OP SCH ×2 (08:10→19:58)
[2018-08-29] MEDS: DORZOLAMIDE HCL 2% OPH SOLN 10 ML BTL OP SCH ×3 (08:11→19:58)
[2018-08-29] MEDS: INSULIN ASPART 100 UNITS/ML 3 ML PEN SC SCH ×4 (08:12→20:45)
[2018-08-29] MEDS: MULTIVITAMIN TAB PO SCH (10:50)
[2018-08-29] MEDS: BACLOFEN 10 MG TAB PO SCH ×4 (10:50→19:58)
[2018-08-29] MEDS: CEROVITE ADV FORMULA TAB PO SCH (10:50)
[2018-08-29] MEDS: SENNA 8.6 MG TAB PO SCH (10:50)
[2018-08-29] MEDS ORDERED: LIDOCAINE HCL 1% 20 ML VIAL ONE (15:04)
[2018-08-29] MEDS ORDERED: BACITRACIN INJ 50,000 UNIT VIAL ONE (15:04)
[2018-08-29] MEDS ORDERED: BACITRACIN OINT 0.9 GM PKT ONE (15:04)
[2018-08-29] MEDS ORDERED: MIDAZOLAM HCL 5 MG/ML 1 ML VIAL ONE (15:08)
[2018-08-29] MEDS ORDERED: fentaNYL citrate 100 MCG/2 ML VIAL ONE (15:08)
--- NOTE | 2018-08-29 15:14 | History & Physical Bridge Note ---
Date of Service August 29, 2018 History & Physical Bridge Note I have examined the patient, reviewed the History & Physical and in the interval since the performance of the History & Physical I have noted the following changes of clinical significance: no changes noted. I reviewed the indications, procedure, risks and alternatives of pacemaker implantation with him and his son who is at his bedside and they understand and he agrees to proceed. Consent obtained. I also reviewed conscious sedation and he understands and agrees to proceed. Consent obtained.
--- NOTE | 2018-08-29 15:16 | Pre Anesthesia Assessment ---
Date of Service August 29, 2018 Pre Sedation Assessment Vital Signs Temp Pulse Pulse Pulse Resp BP BP 08/29/18 11:15 36.9 C 93 H 18 180/69 H 08/29/18 07:04 36.4 C L 80 18 183/73 H 08/29/18 03:46 36.4 C L 77 16 166/72 H 08/29/18 02:49 79 08/28/18 23:41 37.2 C 81 20 165/72 H 08/28/18 19:40 36.6 C 64 68 18 166/81 H 08/28/18 15:40 36.8 C 62 18 127/69 Pulse Ox 08/29/18 11:15 92 08/29/18 07:04 95 08/29/18 03:46 94 08/29/18 02:49 08/28/18 23:41 93 08/28/18 19:40 93 08/28/18 15:40 94 Cardiovascular Additional Comments: Irregular rhythm, intermittently rapid heart rate Respiratory normal respiratory effort, lungs clear to auscultation Pre-Sedation Airway Assessment Smoking Status: Former smoker Hx Sleep Apnea: No Hx Difficult Intubation: No Short, Thick Neck: No Thyromental Distance: > or= 3.5 Finger Breadths Mallampati Class: II ASA III NPO Status Date of Last Intake of Fluids: 08/28/18 Date of Last Intake of Solid Food: 08/28/18 Procedure Planning Contraindications for Sedation: none Current Medications Reviewed: Yes Notes The planned sedation has been discussed with the patient. Informed Consent was obtained. I have identified the patient, determined the appropriateness of sedation and have assessed the patient immediately prior to the procedure. All medicine(s) and interventions are by my order.
[2018-08-29] MEDS ORDERED: CEFAZOLIN 250 MG/ML 1 GM VIAL ONE (15:24)
[2018-08-29] MEDS ORDERED: METOPROLOL TARTRATE 1 MG/ML VIAL IV ONE ×2 (15:51→16:16)
[2018-08-29] MEDS ORDERED: ACETAMINOPHEN 325 MG TAB PO PRN (16:30)
[2018-08-29] MEDS ORDERED: KETOROLAC TROMETHAMINE 10 MG TABLET PO PRN (16:30)
--- NOTE | 2018-08-29 16:30 | Operative Report ---
Post Operative Report Pre & Post Diagnosis Operation Date: 08/29/18 13:00 Preoperative diagnosis: Atrial fibrillation with long pauses Postoperative diagnosis: Same Procedure Operation Date: 08/29/18 13:00 Actual Procedures p Pacer with Ventricular Lead - Donovan Garrison MD Surgeon Donovan Garrison MD Chief Environmental Commitment Officer None Estimated Blood Loss 40 Findings Consistent with Post-Op Diagnosis Good lead position and measurements Specimens None Complications none Disposition Accompanied Patient To Recovery: No Disposition: PCU Description of Procedure After obtaining informed consent for the procedure, the patient was brought to the laboratory and prepped and draped in the standard sterile manner. The left prepectoral region was anesthetized with 1% lidocaine local anesthetic and left axillary venipuncture was performed by percutaneous technique and a guidewire placed through the left subclavian vein into the superior vena cava. The area was further infiltrated with 1% lidocaine local anesthetic and a 5 cm incision was made parallel to the left clavicle and 2 cm below it and carried down to the anterior pectoralis fascia. A pacemaker pocket was formed by blunt dissection anterior to the pectoralis fascia and a bacitracin-soaked sponge (50,000 units in 50 cc normal saline solution) was placed in the pocket. An 8 [place] [employer] lead introducer was placed over the guidewire into the left subclavian vein, the dilator and guidewire were removed and a bipolar active fixation steroid tipped ventricular lead was advanced through the introducer into the superior vena cava. A guidewire was placed through the introducer and the introducer was stripped from the lead and guidewire. Using a curved stylette the ventricular lead was advanced through the right ventricular outflow tract into the pulmonary artery and then using a straight stylette was positioned in the right ventricular apex. The screw was extended fixing the lead in position. Pacing and sensing thresholds were evaluated in bipolar configuration and are recorded on the implant data sheet. Once the lead was in position it was attached to the anterior pectoralis fascia using 2 sutures of 2-0 silk around the lead collar. The bacitracin-soaked sponge was removed from the pocket, hemostasis was obtained, the pacemaker was attached to the lead and placed in the pocket with the lead coiled beneath it. The incision was closed with a running double subcutaneous closure of 3-0 Vicryl absorbable suture, followed by running subcuticular skin closure of 4-0 Vicryl absorbable suture. Bacitracin ointment was placed on the incision and a pressure dressing applied. I attest to the content of the Intraoperative Record and any orders documented therein. Any exceptions are noted below.
[2018-08-29] MEDS: DOXYCYCLINE HYCLATE 100 MG CAP PO SCH ×2 (16:39→19:58)
[2018-08-29] MEDS: ASPIRIN 81 MG ECTAB PO SCH (16:40)
[2018-08-29] MEDS: LISINOPRIL 40 MG TAB PO SCH (16:40)
[2018-08-29] MEDS: FUROSEMIDE 40 MG TAB PO SCH (16:40)
[2018-08-29] MEDS: FUROSEMIDE 20 MG TAB PO SCH (16:40)
[2018-08-29] MEDS ORDERED: COUGH DROP (SUGAR FREE) LOZ 24 LOZ/1 BOX BUCCAL ONE (17:43)
--- NOTE | 2018-08-29 18:57 | Hospitalist Progress Note ---
Date of Service August 29, 2018 Assessment & Plan (1) Acute on chronic diastolic CHF (congestive heart failure): Appearing overall euvolemic, continue current care and follow (2) Pneumonia: CTA chest with mild infiltrates of b/l upper lobes. will treat with doxy 100mg BID x 7 days especially to cover atypicals. Pulmonary has seen in consultation. No dysphagia by history - doubt aspiration. 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 (5) Pleural effusion: appreciate pulmonary consultation. too small for thoracentesis. fluid likely due to diastolic CHF. Continue to follow (6) Diabetes mellitus: Continue insulin management, continue to follow (7) Peripheral arterial disease: Consider initiation of statin, will need to try to review if there is reasonable is not on it. Continue home meds otherwise (8) Constipation: Continue bowel regimen (9) Wound of foot: multiple issues with legs and feet. wound care has seen. appreciate their consultation. arterial duplex ordered to reassess circulation. Otherwise outpatient follow-up (10) Essential (primary) hypertension: continue outpatient meds, continue to follow (11) Cellulitis: Seems to be resolved, still on Doxy. 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 Breathing is unlabored no accessory muscle use good spontaneous effort. No rashes, no pallor or icterus (1) Pneumonia Pneumonia type: due to unspecified organism Laterality: bilateral Lung location: upper lobe of lung Qualified Code(s): J18.1 - Lobar pneumonia, unspecified organism (2) Atrial fibrillation Atrial fibrillation type: chronic Qualified Code(s): I48.2 - Chronic atrial fibrillation (3) Diabetes mellitus Diabetes mellitus type: type 2 Diabetes mellitus terminal worker insulin use: without usp 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
[2018-08-29] MEDS: LATANOPROST 0.005% OP SOLN 2.5 ML BTL OPB SCH (19:57)
[2018-08-29] MEDS: METHENAMINE HIPPURATE 1 GM TAB PO SCH (19:59)
[2018-08-29] MEDS: SERTRALINE HCL 50 MG TABLET PO SCH (19:59)
[2018-08-29] MEDS: METOPROLOL SUCC 50MG EXT REL TAB PO SCH (20:44)
--- NOTE | 2018-08-30 06:58 | XRay Report ---
XR chest 2V routine HISTORY: 73 years-old Male EXACT TIME ORDERED Evaluate for pneumothorax and l status post placement of a left subclavian pacer COMPARISON: Chest radiographs 08/26/2018 TECHNIQUE: AP and lateral views of the chest FINDINGS: Cardiac silhouette is enlarged, unchanged. Pulmonary vascular congestion with mild interstitial coars ening. Small bilateral pleural effusions with right greater left bibasilar opacities. Calcification o f the thoracic aortic arch. Status post placement of a single lead left subclavian pacer, distal tip overlying the expected location of the right ventricle. No postprocedural pneumothorax identified. Yonathan naida of the chest appear grossly intact. IMPRESSION: 1. Status post placement of a single lead left subclavian pacer. No postprocedural pneumothorax. 2. Cardiomegaly with pulmonary edema, small pleural effusions and persistent bibasilar opacities. The above report was generated using voice recognition software. It may contain grammatical, syntax o r spelling errors. Electronically signed by: Michel Basurto M.D. 08/30/2018 6:56 AM
[2018-08-30] MEDS: METOPROLOL SUCC 50MG EXT REL TAB PO SCH (07:44)
[2018-08-30] MEDS: MULTIVITAMIN TAB PO SCH (07:44)
[2018-08-30] MEDS: SENNA 8.6 MG TAB PO SCH (07:44)
[2018-08-30] MEDS: DOXYCYCLINE HYCLATE 100 MG CAP PO SCH ×2 (07:44→19:55)
[2018-08-30] MEDS: BACLOFEN 10 MG TAB PO SCH ×4 (07:44→19:54)
[2018-08-30] MEDS: DORZOLAMIDE HCL 2% OPH SOLN 10 ML BTL OP SCH ×3 (07:45→19:54)
[2018-08-30] MEDS: CEROVITE ADV FORMULA TAB PO SCH (07:45)
[2018-08-30] MEDS: POLYETHYLENE (MIRALAX) 17 GM PACK PO SCH ×2 (07:46→19:55)
[2018-08-30] MEDS: INSULIN ASPART 100 UNITS/ML 3 ML PEN SC SCH ×4 (07:49→21:32)
[2018-08-30] MEDS: BRIMONIDINE TARTRATE 0.2% 5ML OP SCH ×2 (07:53→19:54)
[2018-08-30] MEDS: FUROSEMIDE 40 MG TAB PO SCH (08:27)
[2018-08-30] MEDS: LISINOPRIL 40 MG TAB PO SCH (08:27)
[2018-08-30] MEDS: ASPIRIN 81 MG ECTAB PO SCH (08:27)
--- NOTE | 2018-08-30 08:40 | Post Anesthesia Assessment ---
Date of Service August 30, 2018 Post Sedation Assessment Vital Signs Temp Pulse Pulse Resp BP BP Pulse Ox 08/30/18 08:30 167/84 H 08/30/18 08:02 36.6 C 92 H 16 201/74 H 96 08/30/18 04:04 36.5 C 85 18 126/51 L 96 08/29/18 23:45 36.6 C 80 17 174/93 H 96 08/29/18 19:30 36.8 C 103 H 22 177/84 H 94 08/29/18 18:30 64 18 174/86 H 92 08/29/18 18:00 92 H 20 175/80 H 88 L 08/29/18 17:30 81 19 172/78 H 93 08/29/18 16:52 78 16 165/84 H 94 08/29/18 16:36 36.7 C 96 H 18 150/80 H 93 08/29/18 16:29 79 16 148/89 H 94 08/29/18 11:15 36.9 C 93 H 18 180/69 H 92 Recovery Score Activity: Moves 4 extremities Respiration: Deep Breath/Cough Circulation: +/-20% PreAnes Value Consciousness: Fully Awake Oxygen Saturation: > 92% On Room Air Post Anesthesia Score: 10 Discharge Sedation Level of Care: Fast Track Phase II Post Sedation Plan On clinical assessment, the patient appears to have tolerated the sedation without complications. Patient is recovering as anticipated. Patient will continue to be monitored by nursing and may be discharged when sedation discharge criteria are met per below protocol. Upon Completions of procedure and additional 15 minutes continue every 5 minute vital signs and the P.A.R. score; then discharge to a Phase I or Fast Track to Phase II per the following guidelines: * Discharge Patient to appropriate Phase II area if PAR is 8 or greater or return to pre- procedure baseline. The post - procedure orders will be as directed. * If PAR score is less than 8 or not return to pre-procedure baseline then patient will follow Phase I monitoring till PAR is reached for Phase II. The Phase I may be done in procedure room or may call to secure a Phase I area. * If naloxone or flumazenil are used for reversal, hold in Phase I for continued monitoring from when last reversal dose was given for a minimum of 60 minutes or longer pending the nurse and/or physician discretion of patient condition before discharge to Phase II. Please call the Sedation Physician to re-evaluate and complete post-note for discharge to Phase II area. Do NOT discharge from procedure sedation or Phase 1 until post- sedation evaluation note is complete by procedure /sedation MD Sedation Discharge Instructions to be given to the patient at discharge to home.
--- NOTE | 2018-08-30 08:48 | Cardiology Progress Note ---
Date of Service August 30, 2018 Assessment & Plan (1) Pacemaker lead malfunction: His pacemaker lead does not have good performance this morning, there was no issue with placement at implant and the chest x-ray looks good so I suspect this is micro-dislodgment. Although the measurements are within the capability of the device it is not ideal and I would recommend revising it rather than having to deal with it in the future or having it failed. I discussed this with him and he is agreeable. I discussed the indications, procedure, risks and alternatives of lead repositioning and he understands and agrees to proceed. Consent obtained. I also discussed sedation with him and he agrees. Consent obtained. (2) Atrial fibrillation with RVR: He remains in atrial fibrillation which is permanent, he will need anticoagulation but I would not start it yet although we can start it soon following lead revision. His rate is better although still somewhat elevated. (3) Essential (primary) hypertension: His blood pressure remains severely elevated, I did restart his metoprolol yesterday, his diltiazem appeared to be started and on hold but it does not appear in his med list, I am not sure exactly what is happening with that medication but it looks like he needs it. Subjective He is feeling well today, no complaints. No significant incisional discomfort. Physical Exam Vital Signs (Past 24 Hours): Last Vital Signs Temp 36.6 C 08/30/18 08:02 Pulse 92 H 08/30/18 08:02 Resp 16 08/30/18 08:02 BP 167/84 H 08/30/18 08:30 Pulse Ox 96 08/30/18 08:02 Physical Exam: Constitutional: Alert, cooperative and in no distress. Pulmonary: Clear to auscultation bilaterally. Cardiac: Irregular rhythm with no murmur, gallop or rub. Abdomen: Soft, nontender with normal bowel sounds. Extremities: No edema. Skin: No rash, ecchymoses or petechiae. Results & Data Diagnostic Findings ECG: Atrial fibrillation, appropriate pacing inhibition Telemetry: Occasional undersensing Chest x-ray: Good lead position, no pneumothorax Pacemaker evaluation: R waves are diminished somewhat compared to implant in the threshold is up suggesting micro-dislodgment
[2018-08-30] MEDS: LACTATED RINGER'S 1,000 ML IV SCH (10:26)
[2018-08-30] MEDS ORDERED: BACITRACIN INJ 50,000 UNIT VIAL ONE (13:46)
[2018-08-30] MEDS ORDERED: LIDOCAINE HCL 1% 20 ML VIAL ONE (13:46)
[2018-08-30] MEDS ORDERED: BACITRACIN OINT 0.9 GM PKT ONE (13:46)
[2018-08-30] MEDS ORDERED: MIDAZOLAM HCL 5 MG/ML 1 ML VIAL ONE (13:47)
[2018-08-30] MEDS ORDERED: fentaNYL citrate 100 MCG/2 ML VIAL ONE (13:47)
[2018-08-30] MEDS ORDERED: CEFAZOLIN 250 MG/ML 1 GM VIAL ONE (14:12)
[2018-08-30] MEDS ORDERED: WATER, STERILE FOR INJ 10 ML VIAL ONE (14:12)
--- NOTE | 2018-08-30 14:13 | Pre Anesthesia Assessment ---
Date of Service August 30, 2018 Pre Sedation Assessment Vital Signs Temp Pulse Pulse Resp BP BP Pulse Ox 08/30/18 11:05 36.6 C 87 16 188/100 H 95 08/30/18 08:30 167/84 H 08/30/18 08:02 36.6 C 92 H 16 201/74 H 96 08/30/18 04:04 36.5 C 85 18 126/51 L 96 08/29/18 23:45 36.6 C 80 17 174/93 H 96 08/29/18 19:30 36.8 C 103 H 22 177/84 H 94 08/29/18 18:30 64 18 174/86 H 92 08/29/18 18:00 92 H 20 175/80 H 88 L 08/29/18 17:30 81 19 172/78 H 93 08/29/18 16:52 78 16 165/84 H 94 08/29/18 16:36 36.7 C 96 H 18 150/80 H 93 08/29/18 16:29 79 16 148/89 H 94 Cardiovascular Additional Comments: Irregular rhythm Respiratory normal respiratory effort, lungs clear to auscultation Pre-Sedation Airway Assessment Smoking Status: Former smoker Hx Sleep Apnea: No Hx Difficult Intubation: No Short, Thick Neck: No Thyromental Distance: > or= 3.5 Finger Breadths Mallampati Class: II ASA III NPO Status Date of Last Intake of Fluids: 08/30/18 Time of Last Intake of Fluids: 09:00 Date of Last Intake of Solid Food: 08/30/18 Time of Last Intake of Solid Foods: 09:00 Procedure Planning Contraindications for Sedation: none Current Medications Reviewed: Yes Notes The planned sedation has been discussed with the patient. Informed Consent was obtained. I have identified the patient, determined the appropriateness of sedation and have assessed the patient immediately prior to the procedure. All medicine(s) and interventions are by my order.
[2018-08-30] MEDS: CEFAZOLIN 1000MG 1,000 MG/7.5 ML SYR IV SCH ×2 (14:58→15:06)
--- NOTE | 2018-08-30 15:13 | Operative Report ---
Post Operative Report Pre & Post Diagnosis Operation Date: 08/29/18 13:00 <No data on this case meets the specified criteria> Operation Date: 08/30/18 14:00 Preoperative diagnosis: Ventricular lead dislodgment Postoperative diagnosis: Same Procedure Operation Date: 08/29/18 13:00 Actual Procedures p Pacer with Ventricular Lead - Donovan Garrison MD Operation Date: 08/30/18 14:00 Actual Procedures p Lead Reposition RA/RV - Donovan Garrison MD Surgeon Donovan Garrison MD Paper Bag Inspector None Estimated Blood Loss 20 Findings Consistent with Post-Op Diagnosis Lead removed without difficulty Tyrx pouch used for infection resistance Specimens None Complications none Disposition Accompanied Patient To Recovery: No Disposition: PCU Description of Procedure After obtaining informed consent for the procedure, the patient was brought to the laboratory and prepped and draped in the standard sterile manner. The left prepectoral region was anesthetized with 1% lidocaine local anesthetic through the old implant site. The sutures holding the site together were cut down to the pacemaker generator. The pacemaker was removed from the pocket and a bacitracin-soaked sponge was placed in the pocket. The pacemaker was disconnected from the lead and set aside. The ventricular lead was unscrewed from the myocardium and withdrawn slightly. Using straight stylette the lead was positioned in the right ventricular apex in a different location. The screw was extended fixing the lead in position. Pacing and sensing thresholds were evaluated in bipolar configuration and are recorded on the implant data sheet. Once the lead was in position it was attached to the anterior pectoralis fascia using 2 sutures of 2-0 silk around the lead collar. The bacitracin-soaked sponge was removed from the pocket, hemostasis was obtained, the pacemaker was attached to the lead and placed in the pocket with the lead coiled beneath it. A Tyrx pouch was used. The incision was closed with a running double subcutaneous closure of 3-0 0 Vicryl absorbable suture, followed by running subcuticular skin closure of 4-0 Vicryl absorbable suture. Bacitracin ointment was placed on the incision and a pressure dressing applied. I attest to the content of the Intraoperative Record and any orders documented therein. Any exceptions are noted below.
[2018-08-30] MEDS ORDERED: METOPROLOL TARTRATE 50 MG TAB PO STA (15:43)
[2018-08-30] MEDS: FUROSEMIDE 20 MG TAB PO SCH (16:17)
--- NOTE | 2018-08-30 17:29 | Hospitalist Progress Note ---
Date of Service August 30, 2018 Assessment & Plan (1) Acute on chronic diastolic CHF (congestive heart failure): Appearing overall euvolemic, although he does have bibasilar rales, but this may relate to his pneumonia as well. Given his breathing feels better overall continue current care. (2) Pneumonia: CTA chest with mild infiltrates of b/l upper lobes. will treat with doxy 100mg BID Pulmonary has seen in consultation. No dysphagia by history - doubt aspiration. 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 (5) Pleural effusion: appreciate pulmonary consultation. too small for thoracentesis. fluid likely due to diastolic CHF. Continue to follow periodically, appears to be asymptomatic and his exam does not corroborate worsening of this (6) Diabetes mellitus: Continue insulin management, tighten carb ratio slightly, continue to follow (7) Peripheral arterial disease: Consider initiation of statin, will need to try to review if there is reasonable is not on it. Continue home meds otherwise (8) Constipation: Escalate to MiraLAX twice daily (9) Wound of foot: multiple issues with legs and feet. wound care has seen. appreciate their consultation. arterial duplex ordered to reassess circulation. Otherwise outpatient follow-up (10) Essential (primary) hypertension: continue outpatient meds, continue to follow, readings bit high but given his current context continue current care (11) Cellulitis: Seems to be resolved, still on Doxy as related to his lungs. 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 PT input on the fifth suggested that he would need SNF, the patient would prefer to go home, now that he is further improved from his pneumonia and has his pacer and hopefully he will have a better performance status. Subjective He is waiting a revision of his pacer wire. He complains of feeling a bit congested, although overall he feels better with his breathing then earlier in his hospital stay. He also feels bloated and constipated, but does not want to take anything until after his pacer wire revision. He would like to go home after discharge, but does appear to be very weak and understands the idea of having PT and OT work with him. Review of Systems All systems reviewed & are unremarkable except as noted in HPI & below Physical Exam Vital Signs (Past 24 Hours): Last Vital Signs Temp 37 C 08/30/18 15:20 Pulse 75 08/30/18 16:45 Resp 18 08/30/18 16:45 BP 153/90 H 08/30/18 16:45 Pulse Ox 98 08/30/18 16:45 Physical Exam: In general he is awake and alert pleasant no distress. HEENT normal cephalic atraumatic mucous membranes are moist. Cardio is regular without rubs murmurs gallops. Lungs show bibasilar rales, clear from about a third of the way up no rhonchi no wheezes. Abdomen is soft moderately distended nontender no masses or organomegaly. Extremities show no sinus clubbing or edema. (1) Pneumonia Pneumonia type: due to unspecified organism Laterality: bilateral Lung location: upper lobe of lung Qualified Code(s): J18.1 - Lobar pneumonia, unspecified organism (2) Atrial fibrillation Atrial fibrillation type: chronic Qualified Code(s): I48.2 - Chronic atrial fibrillation (3) Diabetes mellitus Diabetes mellitus type: type 2 Diabetes mellitus senior living insulin use: without senior living 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
[2018-08-30] MEDS: LATANOPROST 0.005% OP SOLN 2.5 ML BTL OPB SCH (19:53)
[2018-08-30] MEDS: METOPROLOL TARTRATE 100 MG TAB PO SCH (19:54)
[2018-08-30] MEDS: METHENAMINE HIPPURATE 1 GM TAB PO SCH (19:55)
[2018-08-30] MEDS: SERTRALINE HCL 50 MG TABLET PO SCH (19:56)
[2018-08-30] MEDS: CEFAZOLIN 2000MG 2,000 MG/15 ML SYR IV SCH (23:32)
[2018-08-31] MEDS: CEFAZOLIN 1000MG 1,000 MG/7.5 ML SYR IV SCH ×3 (05:24→23:10)
--- NOTE | 2018-08-31 08:08 | XRay Report ---
XR chest 2V routine HISTORY: Pacemaker placement. COMPARISON: Chest 08/30/2018. FINDINGS: No pneumothorax. Mild pulmonary edema and small bilateral pleural effusions have slightly i mproved. The heart remains mildly enlarged. Left-sided single lead pacemaker. The lead appears intact . IMPRESSION: 1. No pneumothorax. 2. Left-sided single lead pacemaker. The lead appears intact. 3. Slight improvement in the pulmonary edema and small bilateral pleural effusions. Electronically signed by: Shailesh Thompson M.D. 08/31/2018 8:07 AM
[2018-08-31] MEDS: CEFAZOLIN 2000MG 2,000 MG/15 ML SYR IV SCH (08:50)
[2018-08-31] MEDS: INSULIN ASPART 100 UNITS/ML 3 ML PEN SC SCH ×4 (08:50→22:00)
[2018-08-31] MEDS: BRIMONIDINE TARTRATE 0.2% 5ML OP SCH ×2 (08:52→21:50)
[2018-08-31] MEDS: DORZOLAMIDE HCL 2% OPH SOLN 10 ML BTL OP SCH ×3 (08:52→21:54)
[2018-08-31] MEDS: LACTATED RINGER'S 1,000 ML IV SCH (08:52)
[2018-08-31] MEDS: SENNA 8.6 MG TAB PO SCH (08:53)
[2018-08-31] MEDS: LISINOPRIL 40 MG TAB PO SCH (08:53)
[2018-08-31] MEDS: ASPIRIN 81 MG ECTAB PO SCH (08:53)
[2018-08-31] MEDS: dilTIAZem HCL 240 MG CAPCR PO SCH (08:53)
[2018-08-31] MEDS: FUROSEMIDE 40 MG TAB PO SCH (08:54)
[2018-08-31] MEDS: METOPROLOL TARTRATE 100 MG TAB PO SCH ×2 (08:54→21:54)
[2018-08-31] MEDS: CEROVITE ADV FORMULA TAB PO SCH (08:56)
[2018-08-31] MEDS: MULTIVITAMIN TAB PO SCH (08:56)
[2018-08-31] MEDS: BACLOFEN 10 MG TAB PO SCH ×4 (08:56→21:53)
[2018-08-31] MEDS: POLYETHYLENE (MIRALAX) 17 GM PACK PO SCH ×2 (08:57→21:54)
[2018-08-31] MEDS: DOXYCYCLINE HYCLATE 100 MG CAP PO SCH ×2 (08:58→21:55)
--- NOTE | 2018-08-31 09:52 | Cardiology Progress Note ---
Date of Service August 31, 2018 Assessment & Plan (1) Pacemaker lead malfunction: With repositioning of his lead yesterday his device is now working well. I would not anticipate any further problems. I am going to start his Eliquis, hopefully he will not have a lot of bleeding but we will need to watch for that for a few hours after the dose. He can go home from my perspective, however I would like to see him in the office early next week and he is not sure he can get it. I will try to make those arrangements. Subjective He is feeling well today, he has no pacemaker incisional discomfort. Physical Exam Vital Signs (Past 24 Hours): Last Vital Signs Temp 36.8 C 08/31/18 07:15 Pulse 77 08/31/18 07:15 Resp 20 08/31/18 07:15 BP 190/82 H 08/31/18 07:15 Pulse Ox 96 08/31/18 07:15 Physical Exam: His pacemaker site looks good, no bleeding, no swelling, no erythema. Results & Data Diagnostic Findings ECG: Atrial fibrillation, appropriate pacemaker inhibition Telemetry: Atrial fibrillation predominantly, occasional pacing, well-controlled heart rate Chest x-ray: Good lead position, no pneumothorax Pacer evaluation: Excellent pacing and sensing characteristics
--- NOTE | 2018-08-31 18:01 | Hospitalist Progress Note ---
Date of Service August 31, 2018 Assessment & Plan (1) Acute on chronic diastolic CHF (congestive heart failure): Appearing overall euvolemic,, breathing feels okay. Continue current care and follow (2) Pneumonia: CTA chest with mild infiltrates of b/l upper lobes. Can you doxy 100mg BID Pulmonary has seen in consultation. No dysphagia by history - doubt aspiration. 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 (5) Pleural effusion: appreciate pulmonary consultation. too small for thoracentesis. fluid likely due to diastolic CHF. Continue to follow periodically, appears to be asymptomatic and his exam does not corroborate worsening of this (6) Diabetes mellitus: Continue insulin management, add Lantus, continue to follow (7) Peripheral arterial disease: Consider initiation of statin, will need to try to review if there is reasonable is not on it. Continue home meds otherwise (8) Constipation: Escalated to MiraLAX twice daily, follow (9) Wound of foot: multiple issues with legs and feet. wound care has seen. appreciate their consultation. arterial duplex ordered to reassess circulation. Otherwise outpatient follow-up (10) Essential (primary) hypertension: continue outpatient meds, cardiology added verapamil which seems to be helping. Continue to follow (11) Cellulitis: Seems to be resolved, still on Doxy as related to his lungs. 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 PT input on the fifth suggested that he would need SNF, the patient would prefer to go home, will await reassessment Subjective Feeling about the same overall. Not great but no focal terrible this. Just a little bit of ongoing congestion with his breathing, but feels like this is reasonable. He also has ongoing constipation, but not a significant amount of discomfort with it. He continues to express a desire to go home, when discussing how he did with PT earlier in the week, he seems to acknowledge that he did not do well, but also notes that in general at home with his chronic conditions he has a lot of assistive devices that help him get around Review of Systems All systems reviewed & are unremarkable except as noted in HPI & below Physical Exam Vital Signs (Past 24 Hours): Last Vital Signs Temp 36.9 C 08/31/18 14:57 Pulse 77 08/31/18 14:57 Resp 20 08/31/18 14:57 BP 128/85 08/31/18 14:57 Pulse Ox 92 08/31/18 14:57 Physical Exam: In general he is awake alert oriented x3 pleasant no distress. HEENT normocephalic atraumatic mucous members are moist. Breathing is unlabored no accessory muscle use. Abdomen is mildly distended nontender no masses or organomegaly. Extremities without calf tenderness, skin shows no rashes no pallor or icterus. (1) Pneumonia Pneumonia type: due to unspecified organism Laterality: bilateral Lung location: upper lobe of lung Qualified Code(s): J18.1 - Lobar pneumonia, unspecified organism (2) Atrial fibrillation Atrial fibrillation type: chronic Qualified Code(s): I48.2 - Chronic atrial fibrillation (3) Diabetes mellitus Diabetes mellitus type: type 2 Diabetes mellitus senior living insulin use: without senior living 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
[2018-08-31] MEDS: APIXABAN 5 MG TABLET PO SCH (21:51)
[2018-08-31] MEDS: INSULIN GLARGINE SOLOSTAR 100 UNITS/ML 3 ML PEN SC SCH (21:52)
[2018-08-31] MEDS: METHENAMINE HIPPURATE 1 GM TAB PO SCH (21:55)
[2018-08-31] MEDS: SERTRALINE HCL 50 MG TABLET PO SCH (21:57)
[2018-08-31] MEDS: LATANOPROST 0.005% OP SOLN 2.5 ML BTL OPB SCH (21:57)
[2018-09-01] MEDS: CEFAZOLIN 1000MG 1,000 MG/7.5 ML SYR IV SCH ×2 (07:56→15:36)
[2018-09-01] MEDS: DORZOLAMIDE HCL 2% OPH SOLN 10 ML BTL OP SCH ×3 (07:57→20:58)
[2018-09-01] MEDS: INSULIN ASPART 100 UNITS/ML 3 ML PEN SC SCH ×4 (07:57→21:03)
[2018-09-01] MEDS: CEROVITE ADV FORMULA TAB PO SCH (07:58)
[2018-09-01] MEDS: BRIMONIDINE TARTRATE 0.2% 5ML OP SCH ×2 (07:58→20:59)
[2018-09-01] MEDS: BACLOFEN 10 MG TAB PO SCH ×4 (07:58→20:59)
[2018-09-01] MEDS: MULTIVITAMIN TAB PO SCH (07:58)
[2018-09-01] MEDS: dilTIAZem HCL 240 MG CAPCR PO SCH (07:59)
[2018-09-01] MEDS: APIXABAN 5 MG TABLET PO SCH ×2 (07:59→20:58)
[2018-09-01] MEDS: DOXYCYCLINE HYCLATE 100 MG CAP PO SCH ×2 (07:59→21:01)
[2018-09-01] MEDS: SENNA 8.6 MG TAB PO SCH (07:59)
[2018-09-01] MEDS: POLYETHYLENE (MIRALAX) 17 GM PACK PO SCH ×3 (07:59→21:16)
[2018-09-01] MEDS: METOPROLOL TARTRATE 100 MG TAB PO SCH ×2 (08:00→21:00)
[2018-09-01] MEDS: LISINOPRIL 40 MG TAB PO SCH (08:00)
[2018-09-01] MEDS: FUROSEMIDE 40 MG TAB PO SCH (08:00)
[2018-09-01] MEDS: ASPIRIN 81 MG ECTAB PO SCH (08:00)
[2018-09-01] MEDS: INSULIN GLARGINE SOLOSTAR 100 UNITS/ML 3 ML PEN SC SCH ×2 (08:00→21:02)
[2018-09-01] MEDS ORDERED: FUROSEMIDE 20 MG in SYRINGE 0 ML IV ONE (09:15)
--- NOTE | 2018-09-01 17:08 | Hospitalist Progress Note ---
Date of Service September 01, 2018 Assessment & Plan (1) Acute on chronic diastolic CHF (congestive heart failure): Appearing overall euvolemic, gave additional Lasix this a.m. to see if we can accelerate weaning oxygen however. Continue current care, try to wean oxygen (2) Pneumonia: CTA chest with mild infiltrates of b/l upper lobes. Continue doxy 100mg BID Pulmonary has seen in consultation. No dysphagia by history - doubt aspiration. 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 (5) Pleural effusion: appreciate pulmonary consultation. too small for thoracentesis. fluid likely due to diastolic CHF. Continue to follow periodically, appears to be asymptomatic and his exam does not corroborate worsening of this (6) Diabetes mellitus: Continue insulin management -still not adequately controlled. Tighten log, increase Lantus. Check A1c (7) Peripheral arterial disease: Consider initiation of statin, will need to try to review if there is reasonable is not on it. Continue home meds otherwise (8) Constipation: Escalated to MiraLAX twice daily, he is having bowel movements, continue for now. (9) Wound of foot: multiple issues with legs and feet. wound care has seen. appreciate their consultation. arterial duplex ordered to reassess circulation. Otherwise outpatient follow-up (10) Essential (primary) hypertension: continue outpatient meds, cardiology added verapamil which seems to be helping. Controlled now, continue to follow (11) Cellulitis: Seems to be resolved, still on Doxy as related to his lungs. 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 PT input on the fifth suggested that he would need SNF, the patient would prefer to go home, awaiting reassessment, discussed with therapy to ensure that he gets evaluated. Subjective Feeling about the same. Waiting on PT to reevaluate so that he and I can decide if he can get home. Breathing is not terrible but is not great either. He did have some bowel movements earlier claire feels it Review of Systems All systems reviewed & are unremarkable except as noted in HPI & below Physical Exam Vital Signs (Past 24 Hours): Last Vital Signs Temp 36.5 C 09/01/18 15:29 Pulse 69 09/01/18 15:29 Resp 18 09/01/18 15:29 BP 145/83 H 09/01/18 15:29 Pulse Ox 91 09/01/18 16:00 Physical Exam: General he is awake alert oriented pleasant no distress. HEENT normocephalic atraumatic mucous members are moist. Breathing is unlabored no accessory muscle use good effort. Abdomen is mildly distended. Skin shows no rashes no pallor or icterus. Neuro shows no new focal deficits. 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
[2018-09-01] MEDS: LATANOPROST 0.005% OP SOLN 2.5 ML BTL OPB SCH (20:57)
[2018-09-01] MEDS: METHENAMINE HIPPURATE 1 GM TAB PO SCH (21:01)
[2018-09-01] MEDS: SERTRALINE HCL 50 MG TABLET PO SCH (21:01)
[2018-09-02 06:50] LABS: Estimated Average Glucose 180 mg/dl; Hemoglobin A1C 7.9 % (4.5-5.6)
[2018-09-02] MEDS: INSULIN ASPART 100 UNITS/ML 3 ML PEN SC SCH ×4 (08:21→20:38)
[2018-09-02] MEDS: INSULIN GLARGINE SOLOSTAR 100 UNITS/ML 3 ML PEN SC SCH ×2 (08:22→20:37)
[2018-09-02] MEDS: METOPROLOL TARTRATE 100 MG TAB PO SCH ×2 (08:23→20:32)
[2018-09-02] MEDS: BRIMONIDINE TARTRATE 0.2% 5ML OP SCH ×2 (08:23→20:27)
[2018-09-02] MEDS: DORZOLAMIDE HCL 2% OPH SOLN 10 ML BTL OP SCH ×3 (08:23→20:27)
[2018-09-02] MEDS: DOXYCYCLINE HYCLATE 100 MG CAP PO SCH (08:23)
[2018-09-02] MEDS: LISINOPRIL 40 MG TAB PO SCH (08:24)
[2018-09-02] MEDS: SENNA 8.6 MG TAB PO SCH (08:24)
[2018-09-02] MEDS: POLYETHYLENE (MIRALAX) 17 GM PACK PO SCH ×2 (08:24→20:31)
[2018-09-02] MEDS: dilTIAZem HCL 240 MG CAPCR PO SCH (08:24)
[2018-09-02] MEDS: FUROSEMIDE 40 MG TAB PO SCH (08:24)
[2018-09-02] MEDS: ASPIRIN 81 MG ECTAB PO SCH (08:24)
[2018-09-02] MEDS: MULTIVITAMIN TAB PO SCH (08:25)
[2018-09-02] MEDS: CEROVITE ADV FORMULA TAB PO SCH (08:25)
[2018-09-02] MEDS: BACLOFEN 10 MG TAB PO SCH ×4 (08:25→20:30)
[2018-09-02] MEDS: APIXABAN 5 MG TABLET PO SCH ×2 (08:25→20:32)
[2018-09-02 09:08] LABS: BUN Creatinine Ratio 24.6 (10-20); Calcium 8.6 mg/dl (8.5-10.1); Creatinine Clr Calc Pharmacy 105.5 ml/min; Est GFR (African American) 105.5; Potassium 3.7 mmol/L (3.5-5.1)
--- NOTE | 2018-09-02 15:34 | Hospitalist Progress Note ---
Date of Service September 02, 2018 Assessment & Plan (1) Acute on chronic diastolic CHF (congestive heart failure): (2) Pneumonia: (3) Atrial fibrillation: (4) Chronic indwelling Coon catheter: (5) Pleural effusion: (6) Diabetes mellitus: (7) Peripheral arterial disease: (8) Constipation: (9) Wound of foot: (10) Essential (primary) hypertension: (11) Cellulitis: (12) Paraplegia: (13) DVT prophylaxis: (14) Bradycardia: (15) Discharge planning issues: 73-year-old white male admitted on August 23, 2018 because of CHF exacerbation, Later was found has cardiac pulse, which was bradycardia, pacemaker was placed Acute on chronic diastolic CHF, Feel he is euvolemic, Nursing staff able to wean the oxygen to room air, Bradycardia, His cardiac pause, Status post pacer, stable in this regard, Left arm in sling, cardiology is follow-up, possible daily dress change, more instructions per cardiology Pneumonia: CTA chest with mild infiltrates of b/l upper lobes. Continue doxy 100mg BID , Pulmonary has seen in consultation. Atrial fibrillation: Rate controlled, chronically anticoagulated with Eliquis, Chronic indwelling Coon catheter: due to neurogenic bladder in the setting of his spastic paralysis condition. Pleural effusion: too small for thoracentesis. fluid likely due to diastolic CHF. Diabetes mellitus, Peripheral artery disease, Stable continue current medication Constipation, resolved Accelerated hypertension blood pressure at 179/81, will continue watch Wound of foot, Current care, arterial duplex ordered to reassess circulation. Cellulitis: Seems to be resolved, still on Doxy as related to his lungs. Paraplegia: 2nd to spastic paralysis condition PT, OT eval and treat Discharge planning issues: pending PT and OT reassessment, Going home or going to snf Taper off oxygen will be ordered two-step for tomorrow if he going home Subjective Reports significant tired and no energy, Still on nasal cannula oxygen which he does not have prior to this admission Has been up to the chair, Poor appetite Review of Systems Constitutional: pos rachel weakness, or fatigue Respiratory: mild dyspnea on exertion, no cough, sputum Cardiac: No chest pain, No orthopnea, Abdomen: No pain, No nausea, No vomiting, No diarrhea, Musculoskeletal: No joint pain, No muscle pain, No swelling, : Chronic Coon catheter, however, No dysuria, No urinary frequency Neurologic: No paralysis, No weakness, No numbness/tingling, Psychiatric: No depression symptoms, No anhedonism, No anxiety, Heme: No abnormal bleeding/bruising, No clotting problems, Skin: No rash, No itch, No new/changing skin lesions Physical Exam Vital Signs (Past 24 Hours): Last Vital Signs Temp 36.5 C 09/02/18 07:44 Pulse 73 09/02/18 07:44 Resp 16 09/02/18 07:44 BP 179/81 H 09/02/18 07:44 Pulse Ox 94 09/02/18 13:15 Physical Exam: Constitutional: Mild pale, chronically ill looking,Alert, cooperative and in no distress. Left anterior upper chest wall has pacer in place,Local wound healing well, Coon catheter in place, Pulmonary:Mild decreased breathing sound, no r/w/c Cardiac: Irregular rhythm with no murmur, gallop or rub. Lower extremity no edema Abdomen: Soft, nontender with normal bowel sounds. Extremities: No edema. Skin: No rash, ecchymoses or petechiae. Results & Data Laboratory Results Laboratory Results - last 24 hr 09/01/18 09/01/18 09/02/18 16:45 20:48 05:25 Sodium Potassium Chloride Carbon Dioxide Anion Gap BUN Creatinine Est Cr Clr Drug Dosing Est GFR ( Amer) Est GFR (Non-Af Amer) BUN/Creatinine Ratio Glucose POC Glucose 224 H 271 H Estimat Average Glucose 180 Hemoglobin A1c 7.9 H Calcium Magnesium 09/02/18 09/02/18 09/02/18 05:26 07:30 11:46 Sodium 142 Potassium 3.7 Chloride 102 Carbon Dioxide 36 H Anion Gap 4.0 BUN 18 Creatinine 0.75 Est Cr Clr Drug Dosing 105.5 Est GFR ( Amer) 105.5 Est GFR (Non-Af Amer) 91.0 BUN/Creatinine Ratio 24.6 H Glucose 129 H POC Glucose 128 H 205 H Estimat Average Glucose Hemoglobin A1c Calcium 8.6 Magnesium 2.0 (1) Pneumonia Pneumonia type: due to unspecified organism Laterality: bilateral Lung location: upper lobe of lung Qualified Code(s): J18.1 - Lobar pneumonia, unspecified organism (2) Atrial fibrillation Atrial fibrillation type: chronic Qualified Code(s): I48.2 - Chronic atrial fibrillation (3) Diabetes mellitus Diabetes mellitus type: type 2 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
[2018-09-02] MEDS: LATANOPROST 0.005% OP SOLN 2.5 ML BTL OPB SCH (20:28)
[2018-09-02] MEDS: SERTRALINE HCL 50 MG TABLET PO SCH (20:31)
[2018-09-02] MEDS: METHENAMINE HIPPURATE 1 GM TAB PO SCH (20:33)
[2018-09-03] MEDS: MULTIVITAMIN TAB PO SCH (07:40)
[2018-09-03] MEDS: FUROSEMIDE 40 MG TAB PO SCH (07:40)
[2018-09-03] MEDS: APIXABAN 5 MG TABLET PO SCH ×2 (07:40→21:10)
[2018-09-03] MEDS: LISINOPRIL 40 MG TAB PO SCH (07:40)
[2018-09-03] MEDS: SENNA 8.6 MG TAB PO SCH ×2 (07:41→08:43)
[2018-09-03] MEDS: METOPROLOL TARTRATE 100 MG TAB PO SCH ×2 (07:41→21:10)
[2018-09-03] MEDS: CEROVITE ADV FORMULA TAB PO SCH (07:41)
[2018-09-03] MEDS: dilTIAZem HCL 240 MG CAPCR PO SCH (07:41)
[2018-09-03] MEDS: ASPIRIN 81 MG ECTAB PO SCH (07:41)
[2018-09-03] MEDS: BACLOFEN 10 MG TAB PO SCH ×4 (07:42→21:10)
[2018-09-03] MEDS: BRIMONIDINE TARTRATE 0.2% 5ML OP SCH ×2 (08:25→21:10)
[2018-09-03] MEDS: DORZOLAMIDE HCL 2% OPH SOLN 10 ML BTL OP SCH ×3 (08:25→21:13)
[2018-09-03] MEDS: POLYETHYLENE (MIRALAX) 17 GM PACK PO SCH ×2 (08:28→21:15)
[2018-09-03] MEDS: INSULIN ASPART 100 UNITS/ML 3 ML PEN SC SCH ×4 (08:42→21:12)
[2018-09-03] MEDS: INSULIN GLARGINE SOLOSTAR 100 UNITS/ML 3 ML PEN SC SCH ×2 (08:42→21:12)
--- NOTE | 2018-09-03 18:04 | Hospitalist Progress Note ---
Date of Service September 03, 2018 Assessment & Plan (1) Acute on chronic diastolic CHF (congestive heart failure): (2) Pneumonia: (3) Atrial fibrillation: (4) Chronic indwelling Coon catheter: (5) Pleural effusion: (6) Diabetes mellitus: (7) Peripheral arterial disease: (8) Constipation: (9) Wound of foot: (10) Essential (primary) hypertension: (11) Cellulitis: (12) Paraplegia: (13) DVT prophylaxis: (14) Bradycardia: (15) Discharge planning issues: 73-year-old white male admitted on August 23, 2018 because of CHF exacerbation, Later was found has cardiac pulse, which was bradycardia, pacemaker was placed Acute on chronic diastolic CHF, Feel he is euvolemic, Nursing staff able to wean the oxygen to room air, Bradycardia, His cardiac pause, Status post pacer, stable in this regard, Left arm in sling because of recent pacer, cardiology is follow-up, possible daily dress change, more instructions per cardiology Pneumonia: CTA chest with mild infiltrates of b/l upper lobes. Continue doxy 100mg BID , Pulmonary has seen in consultation, which has completed a full course of treatment Atrial fibrillation: Rate controlled, chronically anticoagulated with Eliquis, Chronic indwelling Coon catheter: due to neurogenic bladder in the setting of his spastic paralysis condition. Pleural effusion: too small for thoracentesis. fluid likely due to diastolic CHF. Diabetes mellitus, Peripheral artery disease, Stable continue current medication Constipation, resolved Accelerated hypertension blood pressure at 179/81, is better today Wound of foot, Current care, arterial duplex ordered to reassess circulation. Cellulitis: Seems to be resolved, followed by doxycycline when treating pneumonia Paraplegia: 2nd to spastic paralysis condition, not able to walk PT, recommend penitentiary , OT, penitentiary if not progressing , patient needs at home along Ready to discharge to penitentiary Subjective Generally feeling any W better, was able to taper off oxygen, Has been up to the chair, Poor appetite, patient is chronically bedridden and not able to ambulate Review of Systems Constitutional: pos rachel weakness, or fatigue Respiratory: mild dyspnea on exertion, no cough, sputum Cardiac: No chest pain, No orthopnea, Abdomen: No pain, No nausea, No vomiting, No diarrhea, Musculoskeletal: No joint pain, No muscle pain, No swelling, : Chronic Coon catheter, however, No dysuria, No urinary frequency Neurologic: No paralysis, No weakness, No numbness/tingling, Psychiatric: No depression symptoms, No anhedonism, No anxiety, Heme: No abnormal bleeding/bruising, No clotting problems, Skin: No rash, No itch, No new/changing skin lesions Physical Exam Vital Signs (Past 24 Hours): Last Vital Signs Temp 36.4 C L 09/03/18 16:09 Pulse 84 09/03/18 16:09 Resp 17 09/03/18 16:09 BP 125/72 09/03/18 16:09 Pulse Ox 93 09/03/18 16:09 Physical Exam: Constitutional: Mild pale, chronically ill looking,Alert, cooperative and in no distress. Left anterior upper chest wall has pacer in place,Local wound healing well, Coon catheter in place, Pulmonary:Mild decreased breathing sound, no r/w/c Cardiac: Irregular rhythm with no murmur, gallop or rub. Lower extremity no edema Abdomen: Soft, nontender with normal bowel sounds. Extremities: No edema. Skin: No rash, ecchymoses or petechiae. 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
[2018-09-03] MEDS: SERTRALINE HCL 50 MG TABLET PO SCH (21:13)
[2018-09-03] MEDS: LATANOPROST 0.005% OP SOLN 2.5 ML BTL OPB SCH (21:13)
[2018-09-03] MEDS: METHENAMINE HIPPURATE 1 GM TAB PO SCH (21:14)
[2018-09-04] MEDS: SENNA 8.6 MG TAB PO SCH (08:44)
[2018-09-04] MEDS: FUROSEMIDE 40 MG TAB PO SCH (08:44)
[2018-09-04] MEDS: ASPIRIN 81 MG ECTAB PO SCH (08:44)
[2018-09-04] MEDS: APIXABAN 5 MG TABLET PO SCH (08:44)
[2018-09-04] MEDS: CEROVITE ADV FORMULA TAB PO SCH (08:44)
[2018-09-04] MEDS: METOPROLOL TARTRATE 100 MG TAB PO SCH (08:44)
[2018-09-04] MEDS: dilTIAZem HCL 240 MG CAPCR PO SCH (08:44)
[2018-09-04] MEDS: BACLOFEN 10 MG TAB PO SCH ×2 (08:44→13:30)
[2018-09-04] MEDS: LISINOPRIL 40 MG TAB PO SCH (08:44)
[2018-09-04] MEDS: MULTIVITAMIN TAB PO SCH (08:45)
[2018-09-04] MEDS: INSULIN ASPART 100 UNITS/ML 3 ML PEN SC SCH ×2 (08:46→13:30)
[2018-09-04] MEDS: INSULIN GLARGINE SOLOSTAR 100 UNITS/ML 3 ML PEN SC SCH (08:46)
[2018-09-04] MEDS: DORZOLAMIDE HCL 2% OPH SOLN 10 ML BTL OP SCH ×2 (08:47→13:30)
[2018-09-04] MEDS: BRIMONIDINE TARTRATE 0.2% 5ML OP SCH (08:47)
[2018-09-04] MEDS: POLYETHYLENE (MIRALAX) 17 GM PACK PO SCH (08:48)
--- NOTE | 2018-09-04 19:30 | Discharge Summary ---
Date of Service September 04, 2018 Admission HPI Per Admitting Provider Mr. Tran is a 73 year old male with a past medical history of atrial fibrillation, diabetes mellitus, hypertension, spastic paralysis, peripheral vascular disease and glaucoma who presents to the emergency department due to shortness of breath. The patient states that his shortness of breath began yesterday, around 3 PM. Initially, he attributed this to anxiety, however the symptoms persisted. He states that his symptoms are worse with lying flat. He denies associated chest pain, palpitations, fever or chills. He does endorse a dry cough over the past 2-3 weeks. He states that he is not on oxygen at home. He also reports feeling disoriented and lightheaded. He states that he takes Lasix daily for bilateral leg edema, and he states he has not noticed that his legs are any more swollen than usual. He denies missing any doses of his medications. With regards to his spastic paralysis, he states that his symptoms began 30 years ago, and that he is now wheelchair-bound. He does live by himself, nicole kay has home health coming in through the [place] to assist him with ADLs. He does have an indwelling Coon catheter. Of note, he is a prior smoker. He states he quit smoking 45 years ago, however used to smoke 2 packs/day for 10 years. He denies any recent use of alcohol or recreational drugs. Principal Diagnosis no Discharge Data Allergies Allergy/AdvReac Type Severity Reaction Status Date / Time No Known Allergies Allergy Verified 08/25/18 22:56 Consultations 08/26/18 01:19 ED Decision to Admit Stat 08/26/18 05:16 Consult Director Biostatistics Routine 08/27/18 17:18 Consult Cardiology Routine Procedures Performed Operation Date: 08/29/18 13:00 Actual Procedures p Pacer with Ventricular Lead - Donovan Garrison MD Operation Date: 08/30/18 14:00 Actual Procedures p Lead Reposition RA/RV - Donovan Garrison MD Ordered Studies 08/25/18 23:33 CT angio chest PE protocol Urgent 08/29/18 07:30 EP Lab Images for PACS ONCE 08/30/18 14:00 EP Lab Images for PACS ONCE Hospital Course (1) Acute on chronic diastolic CHF (congestive heart failure): (2) Pneumonia: (3) Atrial fibrillation: (4) Chronic indwelling Coon catheter: (5) Pleural effusion: (6) Diabetes mellitus: (7) Peripheral arterial disease: (8) Constipation: (9) Wound of foot: (10) Essential (primary) hypertension: (11) Cellulitis: (12) Paraplegia: (13) DVT prophylaxis: (14) Bradycardia: (15) Discharge planning issues: 73-year-old white male admitted on August 23, 2018 because of CHF exacerbation, Later was found has cardiac pulse, which was bradycardia, pacemaker was placed Acute on chronic diastolic CHF, Feel he is euvolemic, Nursing staff able to wean the oxygen to room air, Bradycardia, His cardiac pause, Status post pacer, stable in this regard, Left arm in sling because of recent pacer, cardiology is follow-up, possible daily dress change, more instructions per cardiology Pneumonia: CTA chest with mild infiltrates of b/l upper lobes. was on doxy 100mg BID , Pulmonary has seen in consultation, which has completed a full course of treatment Atrial fibrillation: Rate controlled, chronically anticoagulated with Eliquis, Chronic indwelling Coon catheter: due to neurogenic bladder in the setting of his spastic paralysis condition. Pleural effusion: too small for thoracentesis. fluid likely due to diastolic CHF. Diabetes mellitus, Peripheral artery disease, Stable continue current medication Constipation, resolved Accelerated hypertension, blood pressure was improved upon discharge Wound of foot, Current care, arterial duplex ordered to reassess circulation. Cellulitis: Seems to be resolved, followed by doxycycline when treating pneumonia Paraplegia: 2nd to spastic paralysis condition, not able to walk PT, recommend usp , OT, usp if not progressing , patient needs at home along pt has Accelerated hypertension blood pressure, Blood medicine need to be adjusted by pcp Paraplegia: 2nd to spastic paralysis condition, not able to walk continue lantus insulin , and insulin sliding scale Subjective upon discharge Generally feeling ok, Has been up to the chair, appetite is bit jennifer r patient is chronically bedridden and not able to ambulate Review of Systems at discharge Constitutional: pos rachel weakness, or fatigue Respiratory: mild dyspnea on exertion, no cough, sputum Cardiac: No chest pain, No orthopnea, Abdomen: No pain, No nausea, No vomiting, No diarrhea, Musculoskeletal: No joint pain, No muscle pain, No swelling, : Chronic Coon catheter, Neurologic: No paralysis, No weakness, No numbness/tingling, Psychiatric: No depression symptoms, No anhedonism, No anxiety, Heme: No abnormal bleeding/bruising, No clotting problems, Skin: No rash, No itch, No new/changing skin lesions Physical Exam at discharge Afebrile, Mild pale, chronically ill looking, Alert, cooperative and in no distress. Left anterior upper chest wall has pacer in place,Local wound healing well, Coon catheter in place, Pulmonary:Mild decreased breathing sound, no r/w/c Cardiac: Irregular rhythm with no murmur, gallop or rub. Lower extremity no edema Abdomen: Soft, nontender with normal bowel sounds. Extremities: No edema. Skin: No rash, ecchymoses or petechiae. Lab data upon discharge: Laboratory Results - last 24 hr 09/03/18 09/04/18 09/04/18 20:11 08:00 11:31 POC Glucose 231 H 163 H 219 H Total Time Total Time Spent Total Time Spent (In Minutes): 35 Discharge Plan Discharge Items Patient Disposition: Transfer [facility] Reason For Visit: HYPOXIA, PLEURAL EFFUSION,CELLULITIS Discharge Diagnosis: Acute on chronic diastolic CHF, Bradycardia had cardiac pause, Status post pacer, Condition: Fair Discharge Goals: Decrease discomfort, Diagnostic testing and Improve disease control Activity: Resume your previous activity Non-emergency contact: Primary Care Provider and Water Hydrant Installer Call non-emergency contact if: you have any medication questions Follow-up/Referrals: Donovan Garrison MD [Physician] - 09/16/18 3:30 pm (follow up cardiology appointment) Jm Carrillo III, MD [Primary Care Provider] - 09/09/18 3:00 pm (follow up primary care physician appointment) Diet: Heart Healthy Add Provider Instructions: you have Acute on chronic diastolic CHF, you have Bradycardia had cardiac pause, Status post pacer, need to follow up with cardiology includes dress change and activity you have Pneumonia: completed a full course of treatment Accelerated hypertension blood pressure, Blood medicine need to be adjusted by pcp Paraplegia: 2nd to spastic paralysis condition, not able to walk continue lantus insulin , and insulin sliding scale you need to follow up with your primary care physician in 1 week, - take medication as instructed, never overdose or any misuse, or take with alcohol, because misuse of medicine may cause organ damage or , call me, or your primary care physician if have questions of discharge medicaitons. - call your primary care physician, or go to local emergency room if has any fever/chill, chest pain, shortness of breathing, nausea/vomiting/abdominal pain, facial droop/slurry speech/local weakness, or if has any questions. - fall precaution - diet as instructed - you need to follow up with your subspecialist, such as Dr. Garrison ACTIVITY RECOMMENDATIONS: * Do not raise affected arm over head for 2 weeks. SPECIAL CARE INSTRUCTIONS: * If bleeding occurs, apply direct pressure to area for 5 minutes. * Call your doctor if you have severe pain, fever, drainage or bleeding at site. * Keep dressing on and dry until 09/02/2018 then remove. * Keep any scheduled doctor's appointment. * Implant Card - hand held device with website information given. SKIN IRRITATION: * You may experience some redness and/or swelling in the area where radiation was administered. If any skin irritation occurs, please contact your family physician. FOLLOW UP VISIT: Keep any scheduled doctor appointments. Prescriptions: New metoprolol tartrate 100 mg Tablet 125 mg PO BID 30 Days Qty: 75 RF: 0 aspirin [Ecotrin Low Strength] 81 mg Tablet,Delayed Release (Dr/Ec) 81 mg PO QAM 30 Days Qty: 30 RF: 0 Lantus Solostar U-100 Insulin 100 unit/mL (3 mL) Insulin Pen 7 unit SC BID 30 Days Qty: 4.2 RF: 0 Continued apixaban 5 mg tablet 5 mg PO BID RF: 0 baclofen 10 mg tablet 10 mg PO QID RF: 0 brimonidine 0.2 % drops 1 drops OP BID RF: 0 diltiazem HCl 240 mg capsule,extended release 24 hr 240 mg PO DAILY RF: 0 dorzolamide [Trusopt] 2 % drops 1 drops OP TID RF: 0 furosemide [Lasix] 40 mg tablet 40 mg PO DAILY RF: 0 lisinopril 40 mg tablet 40 mg PO DAILY RF: 0 methenamine hippurate 1 gram tablet 1 gm PO QPM RF: 0 multivitamin capsule 1 cap PO DAILY RF: 0 sertraline [Zoloft] 50 mg tablet 50 mg PO HS RF: 0 zolpidem 10 mg tablet 10 mg PO HS PRN (Reason: sleep) RF: 0 latanoprost 0.005 % drops 1 drp OPB HS RF: 0 metoprolol succinate 50 mg Tablet Extended Release 24 Hr 50 mg PO BID RF: 0 aspirin 81 mg Tablet,Delayed Release (Dr/Ec) 81 mg PO HS RF: 0 PreserVision AREDS-2 [id number]-mg capsule 1 cap PO BID RF: 0 Discontinued glipizide 10 mg tablet 10 mg PO BID RF: 0 metformin 1,000 mg Tablet 1,000 mg PO BID RF: 0 Stand-Alone Forms: [facility] Discharge Orders: Discharge Order (Routine); Ordered 09/04/18 Ordered By: Harjeet Altamirano Skilled Items Patient informed of condition?: Yes DNR: Yes Discharge Level of Care: Skilled Communicable Disease: No Discharge Prognosis: Deteriorating Admission Data Admit Date/Time: 08/26/18 03:29 Attending Provider: Harjeet Altamirano Admit Provider: Jennie Morales Primary Care Provider: mJ Carrillo III Other Providers: Tre Mccormack ; Harjeet Altamirano ; García Wyatt ; Elizabeth Hurley ; Sergio Gage ; Salvador Miller Service: Medical Other Interventions: Discharge Summary Assessment (RN) Last Done: 09/04/18 15:16 DC Date/Time DO NOT enter until pt leaves facility: 09/04/18 16:09
== END 2018-09-04 16:09 | DRG 242 ==
LOC: ED 22:37 → 2N 08-26 03:29 → SUATTDRO 08-26 03:29 → 2N 08-26 04:08 → 2S 08-27 19:37 → 2N 08-31 11:20 → 4W 09-03 02:23

== ENCOUNTER 2018-10-26 10:28 | Inpatient (IN) ==
[2018-10-26] MEDS ORDERED: SODIUM CHLORIDE 0.9% 1000ML 1,000 ML IV ONE (11:25)
[2018-10-26] MEDS ORDERED: cefTRIAXone SODIUM 1,000 MG/50 ML BAG IV STA (11:25)
[2018-10-26 11:39] LABS: Appearance Urine Clear (Clear); Bacteria Urine Automated Negative (Negative); Bilirubin Urine Negative (Negative); Blood Urine 3+ (Negative); Color Urine Yellow; Glucose Urine UA 1+ (Negative); Ketones Urine Negative (Negative); Leukocyte Esterase Urine Negative (Negative); Nitrite Urine Negative (Negative); RBC Urine Automated >30 /hpf (0-4); Specific Gravity Urine 1.014 (1.000-1.030); Urobilinogen Urine Negative (Negative); pH Urine 7.5 (4.5-7.5)
[2018-10-26 11:40] LABS: Protein Urine 3+ (Negative)
[2018-10-26 11:47] LABS: Basophils # (auto) 0.02 K/uL (0-0.2); Basophils % (auto) 0.2 %; Eosinophils % (auto) 2.8 %; Hematocrit (blood only) 48.2 % (42-52); Hemoglobin 16.2 g/dL (14.0-18.0); Immature Granulocytes # (auto) 0.13 K/uL (0.00-0.02); Immature Granulocytes % (auto) 1.2 %; Lymphocytes # (auto) 0.92 K/uL (1.2-3.4); Lymphocytes % (auto) 8.6 %; Mean Corpuscular Hgb Conc 33.6 g/dL (32-36); Mean Corpuscular Volume 79.4 fL (80-100); Mean Platelet Volume 10.7 fL (7.4-10.4); Monocytes # (auto) 0.02 K/uL (0.11-0.59); Monocytes % (auto) 0.2 %; Neutrophils # (auto) 9.35 K/uL (1.4-6.5); Nucleated RBC # (auto) 0.07 K/uL (0-0); Nucleated RBC % (auto) 0.6 %; Platelet Count 244 K/uL (130-400); RDW Coefficient of Variation 16.3 % (11.5-14.5); RDW Standard Deviation 46.6 fL (36.4-46.3); Red Blood Count 6.07 M/uL (4.7-6.1); White Blood Count 10.74 K/uL (4.8-10.8)
[2018-10-26] MEDS ORDERED: ACETAMINOPHEN 500 MG TAB PO STA (11:50)
[2018-10-26] MEDS ORDERED: VANCOMYCIN HCL 2,500 MG in SODIUM CHLORIDE 0.9% 500 ML IV ONE (11:56)
[2018-10-26] MEDS ORDERED: PIPERACILL/TAZOBAC CONSULT ACTIVE PRN ×2 (11:56→15:04)
[2018-10-26] MEDS ORDERED: VANCOMYCIN CONSULT ACTIVE PRN ×2 (11:56→15:23)
[2018-10-26] MEDS ORDERED: PIPERACILLIN/TAZOBACTAM 4.5 GM/120 ML BAG IV ONE (11:56)
[2018-10-26 12:08] LABS: BUN Creatinine Ratio 23.3 (10-20); Calcium 9.5 mg/dl (8.5-10.1); Creatinine Clr Calc Pharmacy 75.8 ml/min; Est GFR (African American) 81.2; Est GFR (Non-African American) 70.1
[2018-10-26] MEDS ORDERED: METOCLOPRAMIDE HCL INJ 5 MG/ML 2 ML VIAL IV STA (12:12)
[2018-10-26 12:30] LABS: Albumin Globulin Ratio 0.7 (0.9-2); Albumin Level 3.4 gm/dl (3.4-5.0); Bilirubin,Total 0.9 mg/dl (0.2-1); Globulin 4.9 gm/dl (2.5-4.0); Phosphorus 3.3 mg/dl (2.5-4.9); Total Protein 8.3 gm/dl (6.4-8.2)
--- NOTE | 2018-10-26 12:37 | XRay Report ---
XR chest 1V not portable CLINICAL HISTORY: Fever. COMPARISON STUDY: Chest CT August 26, 2018. Chest radiograph August 31, 2018. FINDINGS: Single lead left pacemaker is in place. There is no pneumothorax. There are suspected small bilateral pleural effusions. Interstitial thickening suggests mild pulmonary edema. No consolidation is identified. IMPRESSION: 1. Interstitial thickening suggestive of pulmonary edema. An infectious process could appear similar although is considered less likely. 2. Small bilateral pleural effusions. Electronically signed by: Redd Fan M.D. 10/26/2018 12:36 PM
[2018-10-26 12:46] LABS: INR 1.2 (0.9-1.1); Partial Thromboplastin Ratio 0.9; Partial Thromboplastin Time 25.6 Seconds (21.0-31.0); Potassium 3.8 mmol/L (3.5-5.1); Prothrombin Time 11.7 Seconds (9.0-12.0)
[2018-10-26 12:51] LABS: Magnesium 1.5 mg/dl (1.8-2.4)
--- NOTE | 2018-10-26 13:25 | History & Physical Report ---
Date of Service October 26, 2018 Assessment & Plan (1) A-fib: Patient is A. fib RVR is unclear whether he took his medications this morning if he missed diltiazem and metoprolol this could prompt him to have this rapid rate. He is given diltiazem drip will ask his metoprolol to be given today. Because he recently had a pacemaker placed for bradycardia Dr. Garrison did do this in August we will consult Dr. Medicare and interrogate his pacemaker to determine its function at home Is on Eliquis for thrombus prevention Patient likely has some acute diastolic heart failure based on his rapid rate this will be treated with IV Lasix and rate control Patient had echocardiogram with Dr. BOWMAN in 2017 at which time systolic function was normal right left atrium moderately dilated mild aortic stenosis moderate MAC elevated right heart pressures moderate mitral stenosis We will not reorder an echocardiogram as it appears his failure could be from his rapid rate is Dr. Garrison other correctional therapy director requested (2) UTI (urinary tract infection): His last stay this is a pansensitive E. coli this is a complicated pneumonia as it is a catheter associated pneumonia present on admission. Patient was given vancomycin and Zosyn given his recent hospitalization and stay we will de-escalate these once cultures are returned (3) Diabetes 1.5, managed as type 2: Patient is diabetes listed on his problem list he denies taking medications for this. We will have him on a carbohydrate restricted diet very loose sliding scale and check an A1c in the morning (4) Hypomagnesemia: Patient of his magnesium augmented this may be part of his tachycardia (5) Elevated lactic acid level: Elevated lactic acid I do not think this patient is sepsis although he certainly is second could have SIRS. He does have tachycardia and fever (6) DVT prophylaxis: Eliquis History of Present Illness Primary Care Provider: Jm Carrillo MD Mr. Tran is a 73 year old male with a past medical history of atrial fibrillation, diabetes mellitus, hypertension, spastic paralysis, peripheral vascular disease and glaucoma who presents to the emergency department request to change Coon catheter. Patient has a chronic indwelling Coon catheter due to spastic paralysis of his lower extremities and urinary issues. He was discharged from the hospital during his last stay September 04 with a pansensitive E. coli UTI after a prolonged stay which included pneumonia and bradycardia requiring pacemaker placement However after being in the emergency department he did develop Reiger's chills a temperature and appeared short of breath. He states that he is not on oxygen at home. He states he does not believe he took his morning medications and he was in atrial fibrillation rapid ventricular response with a rate to the 160s he was not hypoxic In the ER he was given rate control with intravenous diltiazem he was on BiPAP for period of time for acute hypoxia by chest help with work of breathing. His work of breathing did improve when his rate reduced. Patient also does have some mild congestive change seen on chest x-ray. With regards to his spastic paralysis, he states that his symptoms began 30 years ago, and that he is now wheelchair-bound. He does live by himself, however [facility]. He says he can assist getting out of bed Of note, he is a prior smoker. He states he quit smoking 45 years ago, however used to smoke 2 packs/day for 10 years. Does not have any recent use of alcohol or recreational drugs. Allergies Allergy/AdvReac Type Severity Reaction Status Date / Time No Known Allergies Allergy Verified 08/25/18 22:56 Home Medications Home Medications Medication Instructions Recorded Confirmed Type apixaban 5 mg tablet 5 mg PO BID 02/18/18 10/26/18 History baclofen 10 mg tablet 10 mg PO QID 02/18/18 10/26/18 History brimonidine 0.2 % eye drops 1 drops OP BID ml 02/18/18 10/26/18 History diltiazem ER 240 mg capsule,24 240 mg PO DAILY 02/18/18 10/26/18 History hr,extended release dorzolamide 2 % eye drops 1 drops OP TID 02/18/18 10/26/18 History furosemide 40 mg tablet 40 mg PO DAILY tab 02/18/18 10/26/18 History lisinopril 40 mg tablet 40 mg PO DAILY 02/18/18 10/26/18 History methenamine hippurate 1 gram tablet 1 gm PO QPM tab 02/18/18 10/26/18 History multivitamin capsule 1 cap PO DAILY 02/18/18 10/26/18 History sertraline 50 mg tablet 50 mg PO HS 02/18/18 10/26/18 History zolpidem 10 mg tablet 10 mg PO HS PRN tab 02/18/18 10/26/18 History PreserVision AREDS-2 1 cap PO BID 08/25/18 10/26/18 History aspirin 81 mg PO HS 08/25/18 10/26/18 History latanoprost 1 drp OPB HS 08/25/18 10/26/18 History metoprolol succinate 50 mg PO BID 08/25/18 10/26/18 History Past Med/Surg History Medical History Sepsis (Chronic) Acute diastolic heart failure A-fib (Acute) Leg ulcer (Acute) Cellulitis (Chronic) Diabetes 1.5, managed as type 2 (Chronic) Glaucoma (Chronic) HTN (hypertension) (Chronic) Hydrocele (Chronic) Scrotal mass (Chronic) Small intestine obstruction (Chronic) Spastic paralysis (Chronic) UTI (urinary tract infection) (Chronic) Urinary retention (Chronic) Surgical History History of toe surgery (Chronic) S/P TURP (Chronic) Social History Preferred Language: Bulgarian Communication Ability: Effective Beliefs That Will Affect Care: None Current Living Situation: Alone Feels Safe at Home: Yes Smoking Status: Never smoker Tobacco Type: cigarettes Cigarettes Per Day: 40 Second Hand Exposure: No Hx Alcohol Use: No Hx Substance Use: No Review of Systems Review of Systems: ROS: Slightly confused and chronically ill No double vision blurry vision No problems with speech or swallowing No palpitations, chest pain or pressure Is tachypneic benign hypoxic decreased air movement No abdominal pain nausea vomiting diarrhea He felt his urine output was reduced by his Coon catheter not working correctly No focal joint pain or muscle pain Minor abrasions lower extremity Persistent lower extremity loss of strength No changes in memory or confusion by his account he seems somewhat forgetful by my count Physical Exam Physical Exam: The patient appeared well nourished and normally developed. Vital signs as documented. He was tachycardic with a rate of 160 hypertensive 140/106 he had temperature 38.3 in the ED Head exam is unremarkable. normocephalic, atraumatic Neck is without jugular venous distension, thyromegaly, or lymphademopathy Lungs are diminished bilaterally with poor air movement Cardiac exam reveals tachycardic and irregularly irregular without a heart murmur Abdominal exam reveals normal bowel sounds, no masses, no organomegaly Large easily reducible umbilical hernia is present Extremities are nonedematous and both pedal pulses are present no open wounds were seen there were small abrasions only Neurologic exam is A&Ox3, patient can move his legs in the bed but has no strength against gravity he claims sensation is intact, he seems to be forgetful Psychologically seems to have a flat affect Skin is warm Dry Results & Data Vital Signs (Past 12 Hours) Vital Signs Temp Pulse Pulse Resp BP BP Pulse Ox 10/26/18 13:00 149 H 26 H 100 10/26/18 12:54 153 H 153 H 30 H 140/108 H 96 10/26/18 12:31 149 H 24 182/119 H 93 10/26/18 12:30 37.2 C 158 H 31 H 185/121 H 94 10/26/18 12:00 130 H 31 H 131/108 H 92 10/26/18 11:45 38.3 C H 153 H 31 H 171/140 H 91 10/26/18 11:27 38.1 C H 10/26/18 10:52 37.0 C 107 H 20 154/104 H 96 Diagnostic Findings Chest x-ray shows interstitial thickening suggestive of pulmonary edema and infectious process could appear similar although is considered less likely small bilateral pleural effusions Fibrillation rapid ventricular response right bundle branch block
[2018-10-26] MEDS ORDERED: dilTIAZem HCl 5 MG/ML 5 ML VIAL IV STA (13:26)
[2018-10-26] MEDS ORDERED: METOPROLOL TARTRATE 1 MG/ML VIAL IV PRN (15:04)
[2018-10-26] MEDS ORDERED: ONDANSETRON INJ 2 MG/ML 2 ML VIAL IV PRN (15:04)
[2018-10-26] MEDS ORDERED: POLYETHYLENE (MIRALAX) 17 GM PACK PO PRN (15:04)
[2018-10-26] MEDS: MAGNESIUM SULFATE / D5W 1 GM/100 ML BAG IV SCH ×2 (15:32→16:41)
[2018-10-26] MEDS: dilTIAZem HCl 125 MG in DEXTROSE 5% 100 ML IV SCH ×2 (15:32→21:32)
--- NOTE | 2018-10-26 15:58 | Pharmacy Report ---
Pharmacy Abx Initial Consult - Date of Service October 26, 2018 - Pharmacy Dosing Scope Date of Consult: 10/26/18 Consultation requested by: Dr. Mares Pharmacy is consulted to initiate Vancomycin and Zosyn IV/PO dosing therapy, order appropriate labs and adjust drug dose/frequency. - Subjective The patient is a 73 year old M admitted on 10/26/18 13:33. - Objective Height: 5 ft 11 in Weight: 101 kg Vital Signs (Past 12hrs): Vital Signs Temp Pulse Pulse Resp BP BP Pulse Ox 10/26/18 14:57 37 C 142 H 20 160/73 H 94 10/26/18 14:40 95 10/26/18 14:31 146 H 25 H 126/88 94 10/26/18 14:30 122 H 24 95 10/26/18 14:16 142 H 27 H 151/98 H 95 10/26/18 14:02 156 H 25 H 160/88 H 96 10/26/18 14:00 139 H 33 H 96 10/26/18 13:46 111 H 29 H 177/102 H 96 10/26/18 13:45 127 H 32 H 177/102 H 96 10/26/18 13:32 162 H 28 H 98 10/26/18 13:31 155 H 30 H 156/101 H 98 10/26/18 13:30 143 H 33 H 93 10/26/18 13:16 161 H 28 H 172/113 H 98 10/26/18 13:01 149 H 30 H 155/109 H 97 10/26/18 13:00 143 H 28 H 98 10/26/18 12:54 153 H 153 H 30 H 140/108 H 96 10/26/18 12:31 149 H 24 182/119 H 93 10/26/18 12:30 37.2 C 158 H 31 H 185/121 H 94 10/26/18 12:00 130 H 31 H 131/108 H 92 10/26/18 11:45 38.3 C H 153 H 31 H 171/140 H 91 10/26/18 11:27 38.1 C H 10/26/18 10:52 37.0 C 107 H 20 154/104 H 96 Lab Results (24hrs): Laboratory Tests (24 Hours) 10/26/18 10/26/18 10/26/18 12:16 11:28 11:28 WBC Neut # (Auto) Creatinine Cancelled 1.05 Est Cr Clr Drug Dosing Cancelled 75.8 Procalcitonin 0.18 10/26/18 11:28 WBC 10.74 Neut # (Auto) 9.35 H Creatinine Est Cr Clr Drug Dosing Procalcitonin Micro Results: 10/26/18 12:16 Blood Culture - Pending Blood 10/26/18 12:17 Blood Culture - Pending Blood 10/26/18 11:28 Urine Culture - Pending Urine,Straight Cath - Risk Factors for Resistance * Hospitalization for 48 hours or more within the past 90 days - last admission 08/26-09/04 due to complications after pacemaker placement - Assessment & Plan Assessment 73 year old M presented to ED requesting for his pedraza catheter to be changed. While in the ED he became febrile and tachypneic. Mr. Tran has a chronic indwelling pedraza catheter 2/2 spastic paralysis of lower extremities and urinary issues. He is wheel-chair bound. During his last admission urine cultures grew lau sensitive e. coli. His visit was also complicated by pneumonia. Plan Vancomycin and Zosyn for empiric treatment of a UTI Vancomycin IV * Estimated PK Parameters: Vd 0.7 L/kg, Ugo 0.067 hr-1, t1/2 10 hr * Loading dose: 2500 mg (~25 mg/kg) IV x1 in ED * Maintenance dose: 1500 mg IV (~15 mg/kg) every 12 hours * Goal trough level : 15 to 20 mcg/mL * Trough/Random level ordered for 10/28/18 before 4th maintenance dose. Piperacillin/tazobactam * 4.5 g bolus administered over 30 minutes, then 3.375 g IV extended infusion every 8 hours for CrCl greater than 20 mL/min. Pharmacy will continue to follow and will adjust dose/frequency as necessary. Thank you.
[2018-10-26] MEDS ORDERED: FUROSEMIDE 40 MG in SYRINGE 0 ML IV ONE (16:00)
[2018-10-26] MEDS: DORZOLAMIDE HCL 2% OPH SOLN 10 ML BTL OP SCH ×2 (16:41→21:18)
[2018-10-26] MEDS: BACLOFEN 10 MG TAB PO SCH ×2 (16:41→21:24)
--- NOTE | 2018-10-26 16:42 | Emergency Department Note ---
Entered by Marguerite Daugherty acting as a scribe for Braden Tucker MD History of Present Illness General Chief complaint: Catheter Replacement Stated complaint: CATHETER REPLACEMENT Time Seen by Provider: 10/26/18 10:54 Source: patient Mode of arrival: ambulatory Limitations: no limitations History of Present Illness Onset (ago): hour(s) 2 Location: pelvis (penis) Radiation: non-radiation Pain Consistency: + constant Maximum Pain Intensity: 5 Current Pain Intensity: 5 Relieved By: + none Exacerbated By: + none Associated symptoms: + other (-dysuria, -hematuria); no fever/chills and no nausea/vomiting The patient is a 73 year old male w/ PMHx of A-fib, CHF, DM, HTN, PE, SBO, paraplegia and chronic indwelling Coon who presents to the ED w/ CC of needing his catheter replaced. He states he gets the catheter replaced once every month. This morning when they tried to replace it, he experienced pain, so he came to the ED. He rates his discomfort as a 5/10 in severity. He denies any recent fevers, nausea, vomiting or abdominal pain. He states the catheter has been working properly recently. He denies any dysuria or hematuria. His Urologist is Dr. Barragan with [facility]. Home Medications Home Medications Medication Instructions Recorded Confirmed Type apixaban 5 mg tablet 5 mg PO BID 02/18/18 10/26/18 History baclofen 10 mg tablet 10 mg PO QID 02/18/18 10/26/18 History brimonidine 0.2 % eye drops 1 drops OP BID ml 02/18/18 10/26/18 History diltiazem ER 240 mg capsule,24 240 mg PO DAILY 02/18/18 10/26/18 History hr,extended release dorzolamide 2 % eye drops 1 drops OP TID 02/18/18 10/26/18 History furosemide 40 mg tablet 40 mg PO DAILY tab 02/18/18 10/26/18 History lisinopril 40 mg tablet 40 mg PO DAILY 02/18/18 10/26/18 History methenamine hippurate 1 gram tablet 1 gm PO QPM tab 02/18/18 10/26/18 History multivitamin capsule 1 cap PO DAILY 02/18/18 10/26/18 History sertraline 50 mg tablet 50 mg PO HS 02/18/18 10/26/18 History zolpidem 10 mg tablet 10 mg PO HS PRN tab 02/18/18 10/26/18 History PreserVision AREDS-2 1 cap PO BID 08/25/18 10/26/18 History aspirin 81 mg PO HS 08/25/18 10/26/18 History latanoprost 1 drp OPB HS 08/25/18 10/26/18 History metoprolol succinate 50 mg PO BID 08/25/18 10/26/18 History Allergies Allergy/AdvReac Type Severity Reaction Status Date / Time No Known Allergies Allergy Verified 08/25/18 22:56 Past Med/Surg History Medical History Sepsis (Chronic) Acute diastolic heart failure A-fib (Acute) Leg ulcer (Acute) Cellulitis (Chronic) Diabetes 1.5, managed as type 2 (Chronic) Glaucoma (Chronic) HTN (hypertension) (Chronic) Hydrocele (Chronic) Scrotal mass (Chronic) Small intestine obstruction (Chronic) Spastic paralysis (Chronic) UTI (urinary tract infection) (Chronic) Urinary retention (Chronic) Surgical History History of toe surgery (Chronic) S/P TURP (Chronic) Social History Preferred Language: Romanian Communication Ability: 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 and A total of 10 systems reviewed and were otherwise negative Physical Exam Vital Signs Vital Signs - 24 hr 10/26/18 10:52 10/26/18 11:27 10/26/18 11:45 Temperature 37.0 C 38.1 C H 38.3 C H Temperature Source Oral Oral Oral Sepsis Recent Fever Within 48 Hours No Sepsis New/Unexplained Change in Mental Status No Sepsis Action Taken by Nursing No Action Required Pulse Rate 107 H Pulse Rate [Apical] 153 H Pulse Rate from SpO2 Sensor Pulse Rhythm [Apical] Irregular Pulse Strength [Apical] Respiratory Rate 20 31 H Respiratory Effort / Characteristics Respiratory Depth Normal Respiratory Pattern Blood Pressure 154/104 H Blood Pressure [Right Arm] 171/140 H Blood Pressure Mean 120 Blood Pressure Mean [Right Arm] 150 Blood Pressure Position [Right Arm] Pulse Oximetry 96 91 Oxygen Delivery Method Room Air Oxygen Flow Rate Fraction of Inspired Oxygen 10/26/18 12:00 10/26/18 12:30 10/26/18 12:31 Temperature 37.2 C Temperature Source Oral Sepsis Recent Fever Within 48 Hours Sepsis New/Unexplained Change in Mental Status Sepsis Action Taken by Nursing Pulse Rate Pulse Rate [Apical] 130 H 158 H 149 H Pulse Rate from SpO2 Sensor Pulse Rhythm [Apical] Irregular Pulse Strength [Apical] Bounding Respiratory Rate 31 H 31 H 24 Respiratory Effort / Characteristics Respiratory Depth Respiratory Pattern Blood Pressure Blood Pressure [Right Arm] 131/108 H 185/121 H 182/119 H Blood Pressure Mean Blood Pressure Mean [Right Arm] 115 142 140 Blood Pressure Position [Right Arm] Lying Pulse Oximetry 92 94 93 Oxygen Delivery Method Room Air Nasal Cannula Nasal Cannula Oxygen Flow Rate 2 2 Fraction of Inspired Oxygen 10/26/18 12:54 10/26/18 13:00 10/26/18 13:01 Temperature Temperature Source Sepsis Recent Fever Within 48 Hours Sepsis New/Unexplained Change in Mental Status Sepsis Action Taken by Nursing Pulse Rate 153 H 143 H 149 H Pulse Rate [Apical] 153 H Pulse Rate from SpO2 Sensor 140 H 155 H Pulse Rhythm [Apical] Pulse Strength [Apical] Respiratory Rate 30 H 28 H 30 H Respiratory Effort / Characteristics Spontaneous Labored Respiratory Depth Normal Respiratory Pattern Regular Blood Pressure 155/109 H Blood Pressure [Right Arm] 140/108 H Blood Pressure Mean 124 Blood Pressure Mean [Right Arm] 118 Blood Pressure Position [Right Arm] Sitting Pulse Oximetry 96 98 97 Oxygen Delivery Method Nasal Cannula BiPAP Oxygen Flow Rate 2 Fraction of Inspired Oxygen 30 10/26/18 13:16 10/26/18 13:30 10/26/18 13:31 Temperature Temperature Source Sepsis Recent Fever Within 48 Hours Sepsis New/Unexplained Change in Mental Status Sepsis Action Taken by Nursing Pulse Rate 161 H 143 H 155 H Pulse Rate [Apical] Pulse Rate from SpO2 Sensor 152 H 151 H 170 H Pulse Rhythm [Apical] Pulse Strength [Apical] Respiratory Rate 28 H 33 H 30 H Respiratory Effort / Characteristics Respiratory Depth Respiratory Pattern Blood Pressure 172/113 H 156/101 H Blood Pressure [Right Arm] Blood Pressure Mean 132 119 Blood Pressure Mean [Right Arm] Blood Pressure Position [Right Arm] Pulse Oximetry 98 93 98 Oxygen Delivery Method BiPAP BiPAP BiPAP Oxygen Flow Rate Fraction of Inspired Oxygen 10/26/18 13:32 10/26/18 13:45 10/26/18 13:46 Temperature Temperature Source Sepsis Recent Fever Within 48 Hours Sepsis New/Unexplained Change in Mental Status Sepsis Action Taken by Nursing Pulse Rate 162 H 111 H Pulse Rate [Apical] 127 H Pulse Rate from SpO2 Sensor 168 H 107 H Pulse Rhythm [Apical] Irregular Pulse Strength [Apical] Respiratory Rate 28 H 32 H 29 H Respiratory Effort / Characteristics Labored Respiratory Depth Respiratory Pattern Blood Pressure 177/102 H Blood Pressure [Right Arm] 177/102 H Blood Pressure Mean 127 Blood Pressure Mean [Right Arm] 127 Blood Pressure Position [Right Arm] Sitting Pulse Oximetry 98 96 96 Oxygen Delivery Method Nasal Cannula Oxygen Flow Rate 2 2 2 Fraction of Inspired Oxygen 10/26/18 14:00 10/26/18 14:02 10/26/18 14:16 Temperature Temperature Source Sepsis Recent Fever Within 48 Hours Sepsis New/Unexplained Change in Mental Status Sepsis Action Taken by Nursing Pulse Rate 139 H 156 H 142 H Pulse Rate [Apical] Pulse Rate from SpO2 Sensor 134 H 157 H 139 H Pulse Rhythm [Apical] Pulse Strength [Apical] Respiratory Rate 33 H 25 H 27 H Respiratory Effort / Characteristics Respiratory Depth Respiratory Pattern Blood Pressure 160/88 H 151/98 H Blood Pressure [Right Arm] Blood Pressure Mean 112 115 Blood Pressure Mean [Right Arm] Blood Pressure Position [Right Arm] Pulse Oximetry 96 96 95 Oxygen Delivery Method Oxygen Flow Rate 2 2 2 Fraction of Inspired Oxygen 10/26/18 14:17 10/26/18 14:30 10/26/18 14:31 Temperature Temperature Source Sepsis Recent Fever Within 48 Hours Sepsis New/Unexplained Change in Mental Status Sepsis Action Taken by Nursing Pulse Rate 122 H 146 H Pulse Rate [Apical] Pulse Rate from SpO2 Sensor 107 H 143 H Pulse Rhythm [Apical] Pulse Strength [Apical] Respiratory Rate 24 25 H Respiratory Effort / Characteristics Spontaneous Respiratory Depth Respiratory Pattern Regular Blood Pressure 126/88 Blood Pressure [Right Arm] Blood Pressure Mean 100 Blood Pressure Mean [Right Arm] Blood Pressure Position [Right Arm] Pulse Oximetry 95 94 Oxygen Delivery Method Nasal Cannula Oxygen Flow Rate 2 Fraction of Inspired Oxygen 10/26/18 14:40 10/26/18 14:57 10/26/18 15:15 Temperature 37 C Temperature Source Oral Sepsis Recent Fever Within 48 Hours Sepsis New/Unexplained Change in Mental Status Sepsis Action Taken by Nursing Pulse Rate Pulse Rate [Apical] 142 H Pulse Rate from SpO2 Sensor Pulse Rhythm [Apical] Pulse Strength [Apical] Respiratory Rate 20 Respiratory Effort / Characteristics Non-Labored Spontaneous SOB on Exertion Respiratory Depth Normal Respiratory Pattern Regular Blood Pressure Blood Pressure [Right Arm] 160/73 H Blood Pressure Mean Blood Pressure Mean [Right Arm] 102 Blood Pressure Position [Right Arm] Lying Pulse Oximetry 95 94 Oxygen Delivery Method Room Air Nasal Cannula Nasal Cannula Oxygen Flow Rate 2 2 Fraction of Inspired Oxygen GENERAL: Patient is mildly-ill appearing, well nourished, rigors present,mild distress EYE EXAM: Normal conjunctiva. PERRL, no anisocoria and EOM's grossly intact w/o pain. OROPHARYNX: Moist mucus membranes. Grossly normal dentition. NECK: Supple, no nuchal rigidity, no adenopathy, non-tender. no signs of meningismus. LUNGS: Clear to auscultation. Milld tachypnea. HEART: Tachycardic heart rate, irregular rhythm, no MRG. ABDOMEN: Abdomen soft, non-tender, normo-active bowel sounds, no masses, no rebound or guarding. : Coon catheter in place, which has just been replaced, draining straw colored fluid. BACK: No CVA TTP. SKIN: No rashes and no bruising. UPPER EXTREMITIES: Upper extremities are grossly normal. LOWER EXTREMITIES: No pitting edema. NEURO EXAM: A&O x3, cranial nerves II-XII grossly intact, normal speech, moves b/l upper extremities w/o issue. Weakness b/l LEs. Course 1108: The patient was evaluated in room C5 and a complete history and physical were performed. 1153: I reevaluated the patient. He is experiencing the chills and is febrile. I will order medication. 1215: Nursing informed me the patient is vomiting. 1225: I reevaluated the patient. He is receiving IV fluids and antibiotics. I d iscussed my recommendation he remain in the hospital for further evaluation and management and he verbalized complete understanding and agreement. 1335: I discussed the patients case with Dr. Paz, [facility] Hospitalist. The patient will be further evaluated. Consultations Consultation #1: I discussed the patients case with Dr. Paz, [facility] Hospitalist. The patient will be further evaluated. Time: 13:35 Administered Medications Diltiazem HCl 125 mg/ Dextrose 125 mls @ 5 mls/hr IV .Q24H MOE; Protocol Stop: 11/25/18 15:29 Last Admin: 10/26/18 15:32 Dose: 5 mg/hr, 5 mls/hr Documented by: [id number] Cosigned by: [id number] Magnesium Sulfate/Dextrose (Magnesium Sulfate / D5w) 1 gm in 100 mls @ 100 mls/ hr IV Q1H MOE Stop: 10/26/18 17:59 Last Infusion: 10/26/18 16:34 Dose: 0 mls/hr Documented by: [id number] Admin: 10/26/18 15:32 Dose: 100 mls/hr Documented by: [id number] Discontinued Medications Acetaminophen (Tylenol) 1,000 mg PO NOW STA Stop: 10/26/18 11:51 Last Admin: 10/26/18 11:54 Dose: 1,000 mg Documented by: [id number] Diltiazem HCl (Cardizem) 20 mg IV NOW STA Stop: 10/26/18 13:27 Last Admin: 10/26/18 13:38 Dose: 20 mg Documented by: [id number] Cosigned by: [id number] Ceftriaxone Sodium (Rocephin) 1,000 mg in 50 mls @ 100 mls/hr IV NOW STA Stop: 10/26/18 11:54 Last Infusion: 10/26/18 12:22 Dose: 0 mls/hr Documented by: [id number] Admin: 10/26/18 11:52 Dose: 100 mls/hr Documented by: [id number] Sodium Chloride (Nss 1000ml) 1,000 mls @ 999 mls/hr IV .Q1H1M ONE Stop: 10/26/18 12:25 Last Infusion: 10/26/18 12:41 Dose: 0 mls/hr Documented by: [id number] Admin: 10/26/18 11:40 Dose: 999 mls/hr Documented by: [id number] Piperacillin Sod/Tazobactam Sod (Zosyn) 4.5 gm in 120 mls @ 240 mls/hr IV NOW ONE Stop: 10/26/18 12:25 Last Infusion: 10/26/18 12:50 Dose: 0 mls/hr Documented by: [id number] Admin: 10/26/18 12:21 Dose: 240 mls/hr Documented by: [id number] Vancomycin HCl 2,500 mg/ (Sodium Chloride) 550 mls @ 200 mls/hr IV NOW ONE; Protocol Stop: 10/26/18 14:40 Last Infusion: 10/26/18 15:44 Dose: 0 mls/hr Documented by: [id number] Admin: 10/26/18 12:26 Dose: 200 mls/hr Documented by: [id number] Furosemide 40 mg/ Syringe 4 mls @ 4 mls/min IV NOW ONE Stop: 10/26/18 16:01 Last Admin: 10/26/18 15:43 Dose: 4 mls/min Documented by: [id number] Metoclopramide HCl (Reglan) 10 mg IV NOW STA Stop: 10/26/18 12:13 Last Admin: 10/26/18 12:21 Dose: 10 mg Documented by: [id number] Medical Decision Making Medical Records Attestation: I reviewed the patient's medical records. Home Medications Current Medication List: was personally reviewed by me Laboratory Data Attestation: I reviewed the patient's lab results. Result diagrams: 10/26/18 11:28 10/26/18 12:16 Lab Results 10/26/18 10/26/18 10/26/18 Range/Units 11:28 11:28 11:28 WBC 10.74 (4.8-10.8) K/uL RBC 6.07 (4.7-6.1) M/uL Hgb 16.2 (14.0-18.0) g/dL Hct 48.2 (42-52) % MCV 79.4 L (80-100) fL MCH 26.7 (25-34) pg MCHC 33.6 (32-36) g/dL RDW Std Deviation 46.6 H (36.4-46.3) fL RDW Coeff of Da 16.3 H (11.5-14.5) % Plt Count 244 (130-400) K/uL MPV 10.7 H (7.4-10.4) fL Immature Gran % (Auto) 1.2 % Neut % (Auto) 87.0 % Lymph % (Auto) 8.6 % [place] % (Auto) 0.2 % Eos % (Auto) 2.8 % Baso % (Auto) 0.2 % Immature Gran # (Auto) 0.13 H (0.00-0.02) K/uL Neut # (Auto) 9.35 H (1.4-6.5) K/uL Lymph # (Auto) 0.92 L (1.2-3.4) K/uL [place] # (Auto) 0.02 L (0.11-0.59) K/uL Eos # (Auto) 0.30 (0-0.5) K/uL Baso # (Auto) 0.02 (0-0.2) K/uL Absolute Nucleated RBC 0.07 H (0-0) K/uL Nucleated RBC % (auto) 0.6 % PT (9.0-12.0) Seconds INR (0.9-1.1) APTT (21.0-31.0) Seconds PTT Ratio Sodium 138 (136-145) mmol/L Potassium (3.5-5.1) mmol/L Chloride 101 (98-107) mmol/L Carbon Dioxide 30 (21-32) mmol/L Anion Gap 7.0 (3-11) BUN 25 H (7-18) mg/dl Creatinine 1.05 (0.6-1.4) mg/dl Est Cr Clr Drug Dosing 75.8 ml/min Est GFR ( Amer) 81.2 Est GFR (Non-Af Amer) 70.1 BUN/Creatinine Ratio 23.3 H (10-20) Glucose 155 H (70-99) mg/dl POC Glucose (70-99) Lactate (0.4-2.0) mmol/L Calcium 9.5 (8.5-10.1) mg/dl Phosphorus 3.3 (2.5-4.9) mg/dl Magnesium (1.8-2.4) mg/dl Total Bilirubin 0.9 (0.2-1) mg/dl AST (15-37) U/L ALT 28 (12-78) U/L Alkaline Phosphatase 192 H (45-117) U/L Total Protein 8.3 H (6.4-8.2) gm/dl Albumin 3.4 (3.4-5.0) gm/dl Globulin 4.9 H (2.5-4.0) gm/dl Albumin/Globulin Ratio 0.7 L (0.9-2) Procalcitonin (0-0.5) ng/ml Urine Color Yellow Urine Appearance Clear (Clear) Urine pH 7.5 (4.5-7.5) Ur Specific [place] 1.014 (1.000-1.030) Urine Protein 3+ H (Negative) Urine Glucose (UA) 1+ H (Negative) Urine Ketones Negative (Negative) Urine Blood 3+ H (Negative) Urine Nitrite Negative (Negative) Urine Bilirubin Negative (Negative) Urine Urobilinogen Negative (Negative) Ur Leukocyte Esterase Negative (Negative) Urine WBC (Auto) 10-30 H (0-5) /hpf Urine RBC (Auto) >30 H (0-4) /hpf U Hyaline Cast (Auto) 1-5 (0-5) /lpf U Epithel Cells (Auto) 10-20 H (0-5) /lpf Urine Bacteria (Auto) Negative (Negative) 10/26/18 10/26/18 10/26/18 Range/Units 11:28 12:09 12:16 WBC (4.8-10.8) K/uL RBC (4.7-6.1) M/uL Hgb (14.0-18.0) g/dL Hct (42-52) % MCV (80-100) fL MCH (25-34) pg MCHC (32-36) g/dL RDW Std Deviation (36.4-46.3) fL RDW Coeff of Da (11.5-14.5) % Plt Count (130-400) K/uL MPV (7.4-10.4) fL Immature Gran % (Auto) % Neut % (Auto) % Lymph % (Auto) % [place] % (Auto) % Eos % (Auto) % Baso % (Auto) % Immature Gran # (Auto) (0.00-0.02) K/uL Neut # (Auto) (1.4-6.5) K/uL Lymph # (Auto) (1.2-3.4) K/uL [place] # (Auto) (0.11-0.59) K/uL Eos # (Auto) (0-0.5) K/uL Baso # (Auto) (0-0.2) K/uL Absolute Nucleated RBC (0-0) K/uL Nucleated RBC % (auto) % PT 11.7 (9.0-12.0) Seconds INR 1.2 H (0.9-1.1) APTT 25.6 (21.0-31.0) Seconds PTT Ratio 0.9 Sodium Cancelled (136-145) mmol/L Potassium Cancelled (3.5-5.1) mmol/L Chloride Cancelled (98-107) mmol/L Carbon Dioxide Cancelled (21-32) mmol/L Anion Gap Cancelled (3-11) BUN Cancelled (7-18) mg/dl Creatinine Cancelled (0.6-1.4) mg/dl Est Cr Clr Drug Dosing Cancelled ml/min Est GFR ( Amer) Cancelled Est GFR (Non-Af Amer) Cancelled BUN/Creatinine Ratio Cancelled (10-20) Glucose Cancelled (70-99) mg/dl POC Glucose 152 H (70-99) Lactate (0.4-2.0) mmol/L Calcium Cancelled (8.5-10.1) mg/dl Phosphorus Cancelled (2.5-4.9) mg/dl Magnesium Cancelled (1.8-2.4) mg/dl Total Bilirubin Cancelled (0.2-1) mg/dl AST Cancelled (15-37) U/L ALT Cancelled (12-78) U/L Alkaline Phosphatase Cancelled (45-117) U/L Total Protein Cancelled (6.4-8.2) gm/dl Albumin Cancelled (3.4-5.0) gm/dl Globulin Cancelled (2.5-4.0) gm/dl Albumin/Globulin Ratio Cancelled (0.9-2) Procalcitonin (0-0.5) ng/ml Urine Color Urine Appearance (Clear) Urine pH (4.5-7.5) Ur Specific [place] (1.000-1.030) Urine Protein (Negative) Urine Glucose (UA) (Negative) Urine Ketones (Negative) Urine Blood (Negative) Urine Nitrite (Negative) Urine Bilirubin (Negative) Urine Urobilinogen (Negative) Ur Leukocyte Esterase (Negative) Urine WBC (Auto) (0-5) /hpf Urine RBC (Auto) (0-4) /hpf U Hyaline Cast (Auto) (0-5) /lpf U Epithel Cells (Auto) (0-5) /lpf Urine Bacteria (Auto) (Negative) 10/26/18 10/26/18 10/26/18 Range/Units 12:16 12:16 12:16 WBC (4.8-10.8) K/uL RBC (4.7-6.1) M/uL Hgb (14.0-18.0) g/dL Hct (42-52) % MCV (80-100) fL MCH (25-34) pg MCHC (32-36) g/dL RDW Std Deviation (36.4-46.3) fL RDW Coeff of Da (11.5-14.5) % Plt Count (130-400) K/uL MPV (7.4-10.4) fL Immature Gran % (Auto) % Neut % (Auto) % Lymph % (Auto) % [place] % (Auto) % Eos % (Auto) % Baso % (Auto) % Immature Gran # (Auto) (0.00-0.02) K/uL Neut # (Auto) (1.4-6.5) K/uL Lymph # (Auto) (1.2-3.4) K/uL [place] # (Auto) (0.11-0.59) K/uL Eos # (Auto) (0-0.5) K/uL Baso # (Auto) (0-0.2) K/uL Absolute Nucleated RBC (0-0) K/uL Nucleated RBC % (auto) % PT (9.0-12.0) Seconds INR (0.9-1.1) APTT (21.0-31.0) Seconds PTT Ratio Sodium (136-145) mmol/L Potassium 3.8 (3.5-5.1) mmol/L Chloride (98-107) mmol/L Carbon Dioxide (21-32) mmol/L Anion Gap (3-11) BUN (7-18) mg/dl Creatinine (0.6-1.4) mg/dl Est Cr Clr Drug Dosing ml/min Est GFR ( Amer) Est GFR (Non-Af Amer) BUN/Creatinine Ratio (10-20) Glucose (70-99) mg/dl POC Glucose (70-99) Lactate 2.9 H* (0.4-2.0) mmol/L Calcium (8.5-10.1) mg/dl Phosphorus (2.5-4.9) mg/dl Magnesium 1.5 L (1.8-2.4) mg/dl Total Bilirubin (0.2-1) mg/dl AST 19 (15-37) U/L ALT (12-78) U/L Alkaline Phosphatase (45-117) U/L Total Protein (6.4-8.2) gm/dl Albumin (3.4-5.0) gm/dl Globulin (2.5-4.0) gm/dl Albumin/Globulin Ratio (0.9-2) Procalcitonin 0.18 (0-0.5) ng/ml Urine Color Urine Appearance (Clear) Urine pH (4.5-7.5) Ur Specific [place] (1.000-1.030) Urine Protein (Negative) Urine Glucose (UA) (Negative) Urine Ketones (Negative) Urine Blood (Negative) Urine Nitrite (Negative) Urine Bilirubin (Negative) Urine Urobilinogen (Negative) Ur Leukocyte Esterase (Negative) Urine WBC (Auto) (0-5) /hpf Urine RBC (Auto) (0-4) /hpf U Hyaline Cast (Auto) (0-5) /lpf U Epithel Cells (Auto) (0-5) /lpf Urine Bacteria (Auto) (Negative) 10/26/18 Range/Units 16:05 WBC (4.8-10.8) K/uL RBC (4.7-6.1) M/uL Hgb (14.0-18.0) g/dL Hct (42-52) % MCV (80-100) fL MCH (25-34) pg MCHC (32-36) g/dL RDW Std Deviation (36.4-46.3) fL RDW Coeff of Da (11.5-14.5) % Plt Count (130-400) K/uL MPV (7.4-10.4) fL Immature Gran % (Auto) % Neut % (Auto) % Lymph % (Auto) % [place] % (Auto) % Eos % (Auto) % Baso % (Auto) % Immature Gran # (Auto) (0.00-0.02) K/uL Neut # (Auto) (1.4-6.5) K/uL Lymph # (Auto) (1.2-3.4) K/uL [place] # (Auto) (0.11-0.59) K/uL Eos # (Auto) (0-0.5) K/uL Baso # (Auto) (0-0.2) K/uL Absolute Nucleated RBC (0-0) K/uL Nucleated RBC % (auto) % PT (9.0-12.0) Seconds INR (0.9-1.1) APTT (21.0-31.0) Seconds PTT Ratio Sodium (136-145) mmol/L Potassium (3.5-5.1) mmol/L Chloride (98-107) mmol/L Carbon Dioxide (21-32) mmol/L Anion Gap (3-11) BUN (7-18) mg/dl Creatinine (0.6-1.4) mg/dl Est Cr Clr Drug Dosing ml/min Est GFR ( Amer) Est GFR (Non-Af Amer) BUN/Creatinine Ratio (10-20) Glucose (70-99) mg/dl POC Glucose 150 H (70-99) Lactate (0.4-2.0) mmol/L Calcium (8.5-10.1) mg/dl Phosphorus (2.5-4.9) mg/dl Magnesium (1.8-2.4) mg/dl Total Bilirubin (0.2-1) mg/dl AST (15-37) U/L ALT (12-78) U/L Alkaline Phosphatase (45-117) U/L Total Protein (6.4-8.2) gm/dl Albumin (3.4-5.0) gm/dl Globulin (2.5-4.0) gm/dl Albumin/Globulin Ratio (0.9-2) Procalcitonin (0-0.5) ng/ml Urine Color Urine Appearance (Clear) Urine pH (4.5-7.5) Ur Specific [place] (1.000-1.030) Urine Protein (Negative) Urine Glucose (UA) (Negative) Urine Ketones (Negative) Urine Blood (Negative) Urine Nitrite (Negative) Urine Bilirubin (Negative) Urine Urobilinogen (Negative) Ur Leukocyte Esterase (Negative) Urine WBC (Auto) (0-5) /hpf Urine RBC (Auto) (0-4) /hpf U Hyaline Cast (Auto) (0-5) /lpf U Epithel Cells (Auto) (0-5) /lpf Urine Bacteria (Auto) (Negative) Imaging Data Radiologist's Impression: Radiology results as stated below per my review and the radiologist's interpretation: XR chest 1V not portable CLINICAL HISTORY: Fever. COMPARISON STUDY: Chest CT August 26, 2018. Chest radiograph August 31, 2018. FINDINGS: Single lead left pacemaker is in place. There is no pneumothorax. There are suspected small bilateral pleural effusions. Interstitial thickening suggests mild pulmonary edema. No consolidation is identified. IMPRESSION: 1. Interstitial thickening suggestive of pulmonary edema. An infectious process could appear similar although is considered less likely. 2. Small bilateral pleural effusions. Electronically signed by: Redd Fan M.D. 10/26/2018 12:36 PM ECG Data Attestation: I personally reviewed and interpreted this ECG as follows: Indication: tachycardia Rate (beats per minute): 141 Rhythm: atrial fibrillation Findings: + other (Wide QRS) and + RBBB Blood Pressure Blood Pressure Findings: Elevated blood pressure Blood Pressure Disposition: further management by hospitalist [facility] Narrative Ancillary records reviewed/Prior records reviewed. Triage nursing summary reviewed. The patient is a 73 year old male w/ PMHx of A-fib, CHF, DM, HTN, PE, SBO, paraplegia and chronic indwelling Coon who presents to the ED w/ CC of needing a catheter replaced. Differential diagnosis includes etiologies such as sepsis, UTI, pneumonia, metabolic, electrolyte abnormalities, cardiac sources, intracerebral event, toxicologic, neurologic, as well as others were entertained. Patient was seen and evaluated the bedside. Upon initial presentation the patient was concerned that he needs to have his catheter replaced but his 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 was unable to do so. Patient did seem to be in the Reiger's and so repeat temperature was checked which showed that he did have an elevated t emperature. The patient does have a known history of A. fib and was tachycardic. Rate control was not initially initiated secondary to the concern for possible sepsis given the patient's tachycardia and fever. The patient was given antipyretics he did have blood work completed along with a lactate procalcitonin and was covered with broad-spectrum antibiotics after initially being covered for Rocephin secondary to likely complicated UTI. Patient does have a known history of indwelling self catheter secondary to paraplegia. Patient is also on apixaban for history of A. fib. The patient does take diltiazem 240 daily. Patient's blood work did show normal white count. Patient's blood work showed a normal white count and H&H. The patient's kidney function was unremarkable. Patient had a lactate of 2.9 magnesium was a touch low at 1.5. Patient's urinalysis did show questionable infection given the positive RBCs but given the patient's known history of indwelling catheter and a prior history of a virtually pansensitive E. coli catheter specimen we will choose to treat empirically. Patient does not complain of any abdominal pains. Did do a bedside ultrasound which showed the patient did have some B-lines which could be significant for either infection versus congestion. Patient's IVC did appear to have respiratory variability so the patient was given additional 500 cc of IV fluids after being given 1-1/2 L. Patient was also placed on BiPAP given the patient's shallow breathing and associated tachypnea with some borderline hypoxia. Patient subsequently attempted to be better rate control with some Cardizem. He was given a one-time dose of 20 mg. I did speak with the on-call hospitalist who agreed to further evaluate treat the patient. Patient was admitted to the medicine service. Impression & Plan Sepsis, UTI (urinary tract infection) Critical Care Time I have personally spent 60 minutes of critical care time in the direct management of this patient. This includes bedside care, interpretation of diagnostic studies, and testing, discussion with consultants, patient, and family members, and other required patient management activities. This 60 minutes is in excess of all separately billable procedures. Critical Care Time: Yes Total Critical Care Time: 60 Discharge Plan Visit Data *Final* Discharge Date/Time: 10/26/18 14:40 Chief Complaint: Catheter Replacement Stated Complaint: CATHETER REPLACEMENT ED Provider: Braden Tucker Discharge Problem: Sepsis, UTI (urinary tract infection) Patient Disposition: Admitted As Inpatient Discharge Instructions Interventions: ED Discharge Assessment Last Done: 10/26/18 14:40 The scribe's documentation has been prepared under my direction and personally reviewed by me in its entirety. I confirm that the note above accurately reflects all work, treatment, procedures, and medical decision making performed by me.
[2018-10-26] MEDS: PIPERACILLIN/TAZOBACTAM 3.375 GM in DEXTROSE 5% 100 ML IV SCH (16:43)
[2018-10-26] MEDS ORDERED: GLUCAGON FOR INJ 1 MG VIAL SQ PRN (20:33)
[2018-10-26] MEDS ORDERED: DEXTROSE 50% 50 ML SYRINGE IV PRN (20:33)
[2018-10-26] MEDS ORDERED: CARBOHYDRATES FOR HYPOGLYCEMIA PO PRN (20:33)
[2018-10-26] MEDS ORDERED: GLUCOSE 40% GEL 15 GM TUBE PO PRN (20:33)
[2018-10-26] MEDS ORDERED: GLUCOSE 10 TABS/TUBE PO PRN (20:33)
--- NOTE | 2018-10-26 20:38 | Progress Note ---
Date of Service October 26, 2018 Received page from the nurse stating that the patient has a history of diabetes, controlled with oral medicines at home, but had no glucose coverage on admission. Brief review of the chart notes admission for A. fib. It also recommended a loose sliding scale insulin coverage. Plan: - Place temporary orders for insulin subq for overnight coverage. - Likely the primary team can adjust as needed in the AM. Michel Galaviz MD PGY2 overnight call Results & Data Vital Signs (Past 12 Hours) Vital Signs Temp Pulse Pulse Resp BP BP Pulse Ox 10/26/18 19:10 36.3 C L 73 19 116/71 97 10/26/18 14:57 37 C 142 H 20 160/73 H 94 10/26/18 14:40 95 10/26/18 14:31 146 H 25 H 126/88 94 10/26/18 14:30 122 H 24 95 10/26/18 14:16 142 H 27 H 151/98 H 95 10/26/18 14:02 156 H 25 H 160/88 H 96 10/26/18 14:00 139 H 33 H 96 10/26/18 13:46 111 H 29 H 177/102 H 96 10/26/18 13:45 127 H 32 H 177/102 H 96 10/26/18 13:32 162 H 28 H 98 10/26/18 13:31 155 H 30 H 156/101 H 98 10/26/18 13:30 143 H 33 H 93 10/26/18 13:16 161 H 28 H 172/113 H 98 10/26/18 13:01 149 H 30 H 155/109 H 97 10/26/18 13:00 143 H 28 H 98 10/26/18 12:54 153 H 153 H 30 H 140/108 H 96 10/26/18 12:31 149 H 24 182/119 H 93 10/26/18 12:30 37.2 C 158 H 31 H 185/121 H 94 10/26/18 12:00 130 H 31 H 131/108 H 92 10/26/18 11:45 38.3 C H 153 H 31 H 171/140 H 91 10/26/18 11:27 38.1 C H 10/26/18 10:52 37.0 C 107 H 20 154/104 H 96
[2018-10-26] MEDS: METOPROLOL SUCC 50MG EXT REL TAB PO SCH (21:21)
[2018-10-26] MEDS: LATANOPROST 0.005% OP SOLN 2.5 ML BTL OPB SCH (21:23)
[2018-10-26] MEDS: SERTRALINE HCL 50 MG TABLET PO SCH (21:24)
[2018-10-26] MEDS: APIXABAN 5 MG TABLET PO SCH (21:25)
[2018-10-26] MEDS: ASPIRIN 81 MG ECTAB PO SCH (21:25)
[2018-10-26] MEDS: INSULIN ASPART 100 UNITS/ML 3 ML PEN SC SCH (21:25)
[2018-10-26] MEDS: BRIMONIDINE TARTRATE 0.2% 5ML OP SCH (21:28)
[2018-10-27] MEDS: VANCOMYCIN HCL 1,500 MG in SODIUM CHLORIDE 0.9% 500 ML IV SCH ×2 (00:04→12:17)
[2018-10-27] MEDS: PIPERACILLIN/TAZOBACTAM 3.375 GM in DEXTROSE 5% 100 ML IV SCH ×2 (02:26→09:12)
[2018-10-27] MEDS: INSULIN ASPART 100 UNITS/ML 3 ML PEN SC SCH ×4 (08:06→20:00)
[2018-10-27] MEDS: DORZOLAMIDE HCL 2% OPH SOLN 10 ML BTL OP SCH ×3 (08:07→19:54)
[2018-10-27] MEDS: BRIMONIDINE TARTRATE 0.2% 5ML OP SCH ×2 (08:07→19:48)
[2018-10-27] MEDS: LISINOPRIL 40 MG TAB PO SCH (08:07)
[2018-10-27] MEDS: METOPROLOL SUCC 50MG EXT REL TAB PO SCH ×2 (08:08→19:51)
[2018-10-27] MEDS: MULTIVITAMIN TAB PO SCH (08:08)
[2018-10-27] MEDS: APIXABAN 5 MG TABLET PO SCH ×2 (08:08→19:51)
[2018-10-27] MEDS: BACLOFEN 10 MG TAB PO SCH ×4 (08:08→19:51)
[2018-10-27 09:04] LABS: Creatinine Clr Calc Pharmacy 69.2 ml/min; Est GFR (African American) 72.8; Est GFR (Non-African American) 62.8; Magnesium 1.9 mg/dl (1.8-2.4)
--- NOTE | 2018-10-27 10:29 | Cardiology Consultation ---
Date of Consultation October 27, 2018 Assessment & Plan (1) Atrial fibrillation with RVR: He presented to the emergency room for catheter related issues and was found to be in atrial fibrillation with a rapid heart rate. He is generally unaware of his rhythm, he takes his medications himself and for the most part his heart rate appears to be well controlled based on pacemaker monitoring. This gives an overall heart rate since last interrogation and that seems quite good overall. I do not know if he missed a dose of his medications or if his rapid heart rate was simply due to his presentation with fever and probable sepsis. I do not know that we need to change his medications from his outpatient based on this. I am therefore going to discontinue his intravenous diltiazem and start his outpatient oral dose, which is actually the same 24-hour dose as his current IV dose. If his heart rate remains elevated we can increase his beta-buzz or add digoxin. (2) Artificial cardiac pacemaker: His pacemaker was evaluated yesterday, it was working well with excellent pacing and sensing characteristics. His overall heart rate was well controlled, not excessive as it was on presentation. No changes were made to his program settings other than to lower the pacing output since he had excellent measurements. (3) UTI (urinary tract infection): He presented with what I believe is urosepsis, associated with rigors and fever. He was treated with antibiotics. Hopefully this did not seed his device or leads, but I would just follow it clinically and would not perform other testing such as echocardiography. History of Present Illness Reason for Consultation: Atrial fibrillation with rapid ventricular response Attending Physician: Leon Alvarez MD History of Present Illness This is a very pleasant 73-year-old gentleman who has a history of diabetes mellitus, wheelchair dependent spastic paralysis, chronic lower extremity edema with peripheral arterial disease and also a history of permanent atrial fibrillation. He presented with worsening of his shortness of breath on August 26, 2018 and on arrival he was in atrial fibrillation with a rapid heart rate. He was also hypoxic and had pulmonary vascular congestion. He was diuresed, on telemetry he had multiple long pauses without an overall slow heart rate, pauses as long as 6.7 seconds. We therefore implanted a single-chamber pacemaker on August 29, 2018. He required a lead revision the next day, however that was uneventful and he was discharged on September 04, 2018. He now presents with difficulty changing an indwelling Coon but reported symptoms which sound like rigors and a fever, he was admitted, placed on antibiotics and since his heart rate was also very fast he was placed on intravenous diltiazem. At home he is supposed to be on diltiazem CD 240 mg daily as well as metoprolol succinate 50 mg twice daily although he is unclear about his medications although he takes himself and insists that he was taking them as directed. At the time of my evaluation this morning he is feeling well, he tells me he is generally unaware of his rhythm and was not having palpitations when he presented. Allergies Allergy/AdvReac Type Severity Reaction Status Date / Time No Known Allergies Allergy Verified 08/25/18 22:56 Home Medications Home Medications Medication Instructions Recorded Confirmed Type apixaban 5 mg tablet 5 mg PO BID 02/18/18 10/26/18 History baclofen 10 mg tablet 10 mg PO QID 02/18/18 10/26/18 History brimonidine 0.2 % eye drops 1 drops OP BID ml 02/18/18 10/26/18 History diltiazem ER 240 mg capsule,24 240 mg PO DAILY 02/18/18 10/26/18 History hr,extended release dorzolamide 2 % eye drops 1 drops OP TID 02/18/18 10/26/18 History furosemide 40 mg tablet 40 mg PO DAILY tab 02/18/18 10/26/18 History lisinopril 40 mg tablet 40 mg PO DAILY 02/18/18 10/26/18 History methenamine hippurate 1 gram tablet 1 gm PO QPM tab 02/18/18 10/26/18 History multivitamin capsule 1 cap PO DAILY 02/18/18 10/26/18 History sertraline 50 mg tablet 50 mg PO HS 02/18/18 10/26/18 History zolpidem 10 mg tablet 10 mg PO HS PRN tab 02/18/18 10/26/18 History PreserVision AREDS-2 1 cap PO BID 08/25/18 10/26/18 History aspirin 81 mg PO HS 08/25/18 10/26/18 History latanoprost 1 drp OPB HS 08/25/18 10/26/18 History metoprolol succinate 50 mg PO BID 08/25/18 10/26/18 History Patient History Medical History Sepsis (Chronic) Acute diastolic heart failure A-fib (Acute) Leg ulcer (Acute) Cellulitis (Chronic) Diabetes 1.5, managed as type 2 (Chronic) Glaucoma (Chronic) HTN (hypertension) (Chronic) Hydrocele (Chronic) Scrotal mass (Chronic) Small intestine obstruction (Chronic) Spastic paralysis (Chronic) UTI (urinary tract infection) (Chronic) Urinary retention (Chronic) Surgical History History of toe surgery (Chronic) S/P TURP (Chronic) Social History Preferred Language: Kiswahili Communication Ability: Effective Actuarial Clerk Required: No Beliefs That Will Affect Care: None Current Living Situation: Alone Other Information That Helps Us Care for You: No Feels Safe at Home: Yes Safety Concerns: Feels Safe At This Time Smoking Status: Former smoker Tobacco Type: cigarettes Cigarettes Per Day: abo ut 45 years ago Do You Dip or Chew Tobacco: No Second Hand Exposure: No Hx Alcohol Use: No Hx Substance Use: No Review of Systems Review of Systems: All systems reviewed & are unremarkable except as noted in HPI & below Physical Exam Physical Exam: Constitutional: Alert, cooperative and in no distress. HEENT: Unremarkable Neck: No jugular venous distention, carotid pulses are irregular but otherwise normal and equal bilaterally without bruits. Pulmonary: Clear to auscultation bilaterally. Cardiac: Irregular rhythm with no murmur, gallop or rub. Abdomen: Soft, nontender with normal bowel sounds. Extremities: +2 bilateral pretibial edema. Distal pulses intact. Neurologic: No focal findings. Gait is steady. Skin: No rash, ecchymoses or petechiae. Results & Data Vital Signs (Past 12 Hours) Vital Signs Temp Pulse Resp BP Pulse Ox 10/27/18 08:00 36.9 C 97 H 20 117/65 97 10/27/18 04:00 37.2 C 93 H 20 126/75 96 10/26/18 22:37 36.6 C 82 21 107/68 97 Diagnostic Findings Admission electrocardiogram: Atrial fibrillation with a heart rate of 141 bpm, bifascicular bundle branch block. ST-T abnormalities. Telemetry: Initially atrial fibrillation with a rapid heart rate, rapid correction of tachycardia with normalization of his heart rate. Atrial fibrillation throughout.
[2018-10-27] MEDS: dilTIAZem HCL 240 MG CAPCR PO SCH (12:09)
[2018-10-27] MEDS: ACETAMINOPHEN 325 MG TAB PO PRN ×2 (12:19→20:04)
[2018-10-27] MEDS: cefTRIAXone SODIUM 2,000 MG in DEXTROSE 5% 50 ML IV SCH (16:50)
--- NOTE | 2018-10-27 17:26 | Hospitalist Progress Note ---
Date of Service October 27, 2018 Assessment & Plan (1) A-fib: Patient is A. fib with RVR. It is unclear whether he took his medications the morning of admission. - Rate normalized on dilt gtt -> switched to home oral diltiazem by Dr. Garrison - Will be seen by Dr. Puri tomorrow - Continue Eliquis for thrombus prevention (2) UTI (urinary tract infection): His last stay this is a pansensitive E. coli. - Continue ceftriaxone - Follow urine cx (3) Diabetes 1.5, managed as type 2: Patient is diabetes listed on his problem list he denies taking medications for this. - Check A1c - Sliding scale insulin (4) Hypomagnesemia: Mg of 1.5 on admisison. - Repeat in the am (5) Elevated lactic acid level: Elevated lactic acid I do not think this patient is sepsis although he certainly is second could have SIRS. He does have tachycardia and fever. - Repeat lactate in the AM (6) DVT prophylaxis: Kayquthuy Subjective Feels well today. No palpitations. Reports no fevers/chills, chest pain, shortness of breath, abdominal pain, nausea, or vomiting. Review of Systems Review of Systems: All systems reviewed & are unremarkable except as noted in HPI & below Physical Exam Constitutional: WD/WN, vitals as above Eyes: EOM intact bilaterally; no conjunctival abnormality ENMT: external ear and nose normal, oropharynx normal Neck: trachea midline, no thyromegaly normal visual inspection Respiratory: normal respiratory effort, lungs clear to auscultation no respiratory distress Cardiovascular: Rate/Rhythm: regular rate and + irregularly irregular Heart Sounds: normal S1 and normal S2 Gastrointestinal (Abdomen): Inspection/Auscultation: abdomen normal to inspection; abdomen not distended Musculoskeletal: no cyanosis or clubbing, extremities motor strength 5/5 Skin: no rashes, warm and dry Neurologic: moves all extremities and awake Psychiatric: Orientation: alert, oriented to person and cooperative Results & Data Vital Signs (Past 12 Hours) Vital Signs Temp Pulse Resp BP Pulse Ox 10/27/18 15:06 36.5 C 74 19 103/67 98 10/27/18 10:51 36.7 C 78 18 101/66 98 10/27/18 08:00 36.9 C 97 H 20 117/65 97
[2018-10-27] MEDS: LATANOPROST 0.005% OP SOLN 2.5 ML BTL OPB SCH (19:50)
[2018-10-27] MEDS: ASPIRIN 81 MG ECTAB PO SCH (19:51)
[2018-10-27] MEDS: SERTRALINE HCL 50 MG TABLET PO SCH (19:51)
[2018-10-27] MEDS ORDERED: VANCOMYCIN TROUGH ONE (23:30)
[2018-10-28 05:36] LABS: Hematocrit (blood only) 37.9 % (42-52); Hemoglobin 12.3 g/dL (14.0-18.0); Mean Corpuscular Hgb Conc 32.5 g/dL (32-36); Mean Corpuscular Volume 78.6 fL (80-100); Platelet Count 163 K/uL (130-400); RDW Coefficient of Variation 16.8 % (11.5-14.5); RDW Standard Deviation 48.3 fL (36.4-46.3); Red Blood Count 4.82 M/uL (4.7-6.1); White Blood Count 10.64 K/uL (4.8-10.8)
[2018-10-28 06:05] LABS: BUN Creatinine Ratio 23.6 (10-20); Calcium 8.2 mg/dl (8.5-10.1); Creatinine Clr Calc Pharmacy 72.4 ml/min; Est GFR (African American) 76.8; Est GFR (Non-African American) 66.2; Magnesium 2.1 mg/dl (1.8-2.4); Potassium 3.5 mmol/L (3.5-5.1)
[2018-10-28] MEDS: ACETAMINOPHEN 325 MG TAB PO PRN (06:09)
[2018-10-28] MEDS: INSULIN ASPART 100 UNITS/ML 3 ML PEN SC SCH ×4 (07:49→20:22)
[2018-10-28] MEDS: BACLOFEN 10 MG TAB PO SCH ×4 (08:06→20:18)
[2018-10-28] MEDS: BRIMONIDINE TARTRATE 0.2% 5ML OP SCH ×2 (08:06→20:15)
[2018-10-28] MEDS: METOPROLOL SUCC 50MG EXT REL TAB PO SCH ×2 (08:06→20:16)
[2018-10-28] MEDS: MULTIVITAMIN TAB PO SCH (08:06)
[2018-10-28] MEDS: APIXABAN 5 MG TABLET PO SCH ×2 (08:06→20:17)
[2018-10-28] MEDS: dilTIAZem HCL 240 MG CAPCR PO SCH (08:07)
[2018-10-28] MEDS: LISINOPRIL 40 MG TAB PO SCH (08:07)
[2018-10-28] MEDS: DORZOLAMIDE HCL 2% OPH SOLN 10 ML BTL OP SCH ×3 (08:08→20:15)
[2018-10-28 15:32] LABS: Hematocrit (blood only) 38.5 % (42-52); Hemoglobin 12.9 g/dL (14.0-18.0)
--- NOTE | 2018-10-28 16:14 | Cardiology Progress Note ---
Date of Service October 28, 2018 Assessment & Plan (1) Atrial fibrillation with RVR: He presented to the emergency room for catheter related issues and was found to be in atrial fibrillation with a rapid heart rate. He is generally unaware of his rhythm, he takes his medications himself and for the most part his heart rate appears to be well controlled based on pacemaker monitoring. This provides an overall heart rate since last interrogation and that seems quite good overall. I do not know if he missed a dose of his medications or if his rapid heart rate was simply due to his presentation with fever and probable sepsis. I do not know that we need to change his medications from his ou tpatient based on this. Back on his outpatient dose of rate controlling medications his heart rate is remain. If his heart rate becomes elevated we can increase his beta-buzz or add digoxin. (2) Artificial cardiac pacemaker: His pacemaker was evaluated, it was working well with excellent pacing and sensing characteristics. His overall heart rate was well controlled, not excessive as it was on presentation. No changes were made to his program settings other than to lower the pacing output since he had excellent measurements. (3) UTI (urinary tract infection): He presented with what I believe is urosepsis, associated with rigors and fever. He was treated with antibiotics. Hopefully this did not seed his device or leads, but I would just follow it clinically and would not perform other testing such as echocardiography. Subjective He is feeling well today, he has no cardiovascular complaints including no palpitations or chest discomfort. Results & Data Vital Signs (Past 12 Hours) Vital Signs Temp Pulse Resp BP BP Pulse Ox 10/28/18 15:37 36.9 C 74 20 109/63 99 10/28/18 11:20 36.6 C 76 18 101/67 95 10/28/18 07:04 36.7 C 80 16 139/80 94 Diagnostic Findings Telemetry: Atrial fibrillation with intermittent ventricular pacing. Heart rate well controlled.
[2018-10-28] MEDS: cefTRIAXone SODIUM 2,000 MG in DEXTROSE 5% 50 ML IV SCH (17:26)
[2018-10-28] MEDS: SERTRALINE HCL 50 MG TABLET PO SCH (20:16)
[2018-10-28] MEDS: ASPIRIN 81 MG ECTAB PO SCH (20:17)
[2018-10-28] MEDS: LATANOPROST 0.005% OP SOLN 2.5 ML BTL OPB SCH (20:17)
--- NOTE | 2018-10-28 23:35 | Hospitalist Progress Note ---
Date of Service October 28, 2018 Assessment & Plan (1) A-fib: Patient is A. fib with RVR. It is unclear whether he took his medications the morning of admission. - Rate normalized on dilt gtt -> switched to home oral diltiazem by Dr. Garrison - Continue Eliquis for thrombus prevention - Will maintain on home regimen as HR appears to be doing well. (2) UTI (urinary tract infection): His last stay this is a pansensitive E. coli. - Continue ceftriaxone - Follow urine cx (3) Diabetes 1.5, managed as type 2: Patient is diabetes listed on his problem list he denies taking medications for this. - Check A1c - Sliding scale insulin (4) Hypomagnesemia: Mg of 1.5 on admisison. - Repeat level was normal. (5) Elevated lactic acid level: Elevated lactic acid I do not think this patient is sepsis although he certainly is second could have SIRS. He no longer has tachycardia or fever - Repeat lactate in the AM (6) DVT prophylaxis: Kaybrad Spent 35 minutes in management of patient. Subjective 73 yo male, he reports feeling well. He denies any palpitations, chest pain, nausea or vomiting. Review of Systems Review of Systems: All systems reviewed & are unremarkable except as noted in HPI & below Physical Exam Physical Exam: Constitutional: WD/WN, vitals as above Eyes: EOM intact bilaterally; no conjunctival abnormality ENMT: external ear and nose normal, oropharynx normal Neck: trachea midline, no thyromegaly normal visual inspection Respiratory: normal respiratory effort, lungs clear to auscultation no respiratory distress Cardiovascular: Rate/Rhythm: regular rate and + irregularly irregular Heart Sounds: normal S1 and normal S2 Gastrointestinal (Abdomen): Inspection/Auscultation: abdomen normal to inspection; abdomen not distended Musculoskeletal: no cyanosis or clubbing, extremities motor strength 5/5 Skin: no rashes, warm and dry Neurologic: moves all extremities and awake Psychiatric: Orientation: alert, oriented to person and cooperative Results & Data Vital Signs (Past 12 Hours) Vital Signs Temp Pulse Pulse Pulse Resp BP Pulse Ox 10/28/18 23:24 36.6 C 73 20 152/85 H 91 10/28/18 19:13 36.8 C 77 20 112/69 99 10/28/18 16:00 68 10/28/18 15:37 36.9 C 74 20 109/63 99
[2018-10-29 07:21] LABS: Est GFR (African American) 94.1; Est GFR (Non-African American) 81.2
[2018-10-29] MEDS: INSULIN ASPART 100 UNITS/ML 3 ML PEN SC SCH ×3 (07:53→16:41)
[2018-10-29] MEDS: DORZOLAMIDE HCL 2% OPH SOLN 10 ML BTL OP SCH ×2 (07:59→13:27)
[2018-10-29] MEDS: BRIMONIDINE TARTRATE 0.2% 5ML OP SCH (07:59)
[2018-10-29] MEDS: METOPROLOL SUCC 50MG EXT REL TAB PO SCH (08:00)
[2018-10-29] MEDS: MULTIVITAMIN TAB PO SCH (08:00)
[2018-10-29] MEDS: LISINOPRIL 40 MG TAB PO SCH (08:01)
[2018-10-29] MEDS: APIXABAN 5 MG TABLET PO SCH (08:01)
[2018-10-29] MEDS: BACLOFEN 10 MG TAB PO SCH ×2 (08:01→12:05)
[2018-10-29] MEDS: dilTIAZem HCL 240 MG CAPCR PO SCH (08:37)
[2018-10-29 10:34] LABS: Hematocrit (blood only) 39.8 % (42-52); Hemoglobin 12.9 g/dL (14.0-18.0); Mean Corpuscular Hgb Conc 32.4 g/dL (32-36); Mean Platelet Volume 10.9 fL (7.4-10.4); Platelet Count 188 K/uL (130-400); RDW Coefficient of Variation 16.8 % (11.5-14.5); RDW Standard Deviation 48.1 fL (36.4-46.3); Red Blood Count 5.04 M/uL (4.7-6.1); White Blood Count 9.05 K/uL (4.8-10.8)
--- NOTE | 2018-10-29 10:45 | Cardiology Progress Note ---
Date of Service October 29, 2018 Assessment & Plan (1) Atrial fibrillation with RVR: He presented to the emergency room for catheter related issues and was found to be in atrial fibrillation with a rapid heart rate. He is generally unaware of his rhythm, he takes his medications himself and for the most part his heart rate appears to be well controlled based on pacemaker monitoring. Pacemaker monitors provide an overall heart rate since last interrogation and that seems quite good overall. I do not know if he missed a dose of his medications or if his rapid heart rate was simply due to his presentation with fever and probable sepsis. I do not know that we need to change his medications from his outpatient based on this. Back on his outpatient dose of rate controlling medications his heart rate is adequately controlled. If his heart rate becomes elevated we can increase his beta-buzz or add digoxin. (2) Artificial cardiac pacemaker: His pacemaker was evaluated, it was working well with excellent pacing and sensing characteristics. His overall heart rate was well controlled, not excessive as it was on presentation. No changes were made to his program settings other than to lower the pacing output since he had excellent measur ements. (3) UTI (urinary tract infection): He presented with what I believe is urosepsis, associated with rigors and fever. He was treated with antibiotics. Hopefully this did not seed his device or leads, but I would just follow it clinically and would not perform other testing such as echocardiography. Subjective He is feeling well, he has no complaints and he is anxious to go home. Physical Exam Physical Exam: Constitutional: Alert, cooperative and in no distress. Pulmonary: Clear to auscultation bilaterally. Cardiac: Irregular rhythm with no murmur, gallop or rub. Abdomen: Soft, nontender with normal bowel sounds. Extremities: +1 bilateral pretibial edema. Skin: No rash, ecchymoses or petechiae. Results & Data Vital Signs (Past 12 Hours) Vital Signs Temp Pulse Pulse Resp BP Pulse Ox 10/29/18 07:57 36.8 C 100 H 18 152/69 H 10/29/18 06:19 84 10/29/18 03:51 36.4 C L 87 21 167/90 H 91 10/29/18 00:00 75 10/28/18 23:24 36.6 C 73 20 152/85 H 91 Diagnostic Findings Telemetry: Atrial fibrillation, intermittent pacing, heart rate appears to be appropriate.
--- NOTE | 2018-11-05 12:58 | Discharge Summary ---
Date of Service October 29, 2018 Admission HPI Per Admitting Provider Mr. Tran is a 73 year old male with a past medical history of atrial fibrillation, diabetes mellitus, hypertension, spastic paralysis, peripheral vascular disease and glaucoma who presents to the emergency department request to change Coon catheter. 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 He was discharged from the hospital during his last stay September 04 with a pansensitive E. coli UTI after a prolonged stay which included pneumonia and bradycardia requiring pacemaker placement However after being in the emergency department he did develop Reiger's chills a temperature and appeared short of breath. He states that he is not on oxygen at home. He states he does not believe he took his morning medications and he was in atrial fibrillation rapid ventricular response with a rate to the 160s he was not hypoxic In the ER he was given rate control with intravenous diltiazem he was on BiPAP for period of time for acute hypoxia by chest help with work of breathing. His work of breathing did improve when his rate reduced. Patient also does have some mild congestive change seen on chest x-ray. With regards to his spastic paralysis, he states that his symptoms began 30 years ago, and that he is now wheelchair-bound. He does live by himself, however [facility]. He says he can assist getting out of bed Of note, he is a prior smoker. He states he quit smoking 45 years ago, however used to smoke 2 packs/day for 10 years. Does not have any recent use of alcohol or recreational drugs. Principal Diagnosis A. Fib with RVR Discharge Exam Constitutional: WD/WN, vitals as above Eyes: EOM intact bilaterally; no conjunctival abnormality ENMT: external ear and nose normal, oropharynx normal Neck: trachea midline, no thyromegaly normal visual inspection Respiratory: normal respiratory effort, lungs clear to auscultation no respiratory distress Cardiovascular: Rate/Rhythm: regular rate and + irregularly irregular Heart Sounds: normal S1 and normal S2 Gastrointestinal (Abdomen): Inspection/Auscultation: abdomen normal to inspection; abdomen not distended Musculoskeletal: no cyanosis or clubbing, extremities motor strength 5/5 Skin: no rashes, warm and dry Neurologic: moves all extremities and awake Psychiatric: Orientation: alert, oriented to person and cooperative Discharge Data Allergies Allergy/AdvReac Type Severity Reaction Status Date / Time No Known Allergies Allergy Verified 08/25/18 22:56 Consultations 10/26/18 13:12 ED Decision to Admit Stat 10/26/18 15:04 Consult Cardiology Routine Consult Case Management - Discharge Planning Routine Hospital Course (1) A-fib: Patient is A. fib with RVR. It is unclear whether he took his medications the morning of admission. - Rate normalized on dilt gtt -> switched to home oral diltiazem by Dr. Garrison - Continue Eliquis for thrombus prevention - Will maintain on home regimen as HR appears to be doing well. Appreciate input from cardio: (1) Atrial fibrillation with RVR: He presented to the emergency room for catheter related issues and was found to be in atrial fibrillation with a rapid heart rate. He is generally unaware of his rhythm, he takes his medications himself and for the most part his heart rate appears to be well controlled based on pacemaker monitoring. Pacemaker monitors provide an overall heart rate since last interrogation and that seems quite good overall. I do not know if he missed a dose of his medications or if his rapid heart rate was simply due to his presentation with fever and probable sepsis. I do not know that we need to change his medications from his outpatient based on this. Back on his outpatient dose of rate controlling medications his heart rate is adequately controlled. If his heart rate becomes elevated we can increase his beta-buzz or add digoxin. (2) Artificial cardiac pacemaker: His pacemaker was evaluated, it was working well with excellent pacing and sensing characteristics. His overall heart rate was well controlled, not excessive as it was on presentation. No changes were made to his program settings other than to lower the pacing output since he had excellent measurements. (2) UTI (urinary tract infection): UTI indwelling catheter. Unable to confirm above diagnosis. However this appears likely. Will continue current antibiotics. His last stay this is a pansensitive E. coli. - Continue ceftriaxone - Follow urine cx Will discharge on cefdinir (3) Diabetes 1.5, managed as type 2: Patient is diabetes listed on his problem list he denies taking medications for this. - Check A1c - Sliding scale insulin (4) Hypomagnesemia: Mg of 1.5 on admisison. - Repeat level was normal. (5) Elevated lactic acid level: Elevated lactic acid I do not think this patient is sepsis although he certainly is second could have SIRS. He no longer has tachycardia or fever - Repeat lactate was normal (6) DVT prophylaxis: Bebeto Spent 35 minutes in management of patient. Total Time Total Time Spent Total Time Spent (In Minutes): 32 Total Time Includes: Examination of the Patient, Discharge Planning and Medication Reconciliation Discharge Plan Discharge Items Patient Disposition: Home - Home Health Services Reason For Visit: AFIB RVR Discharge Diagnosis: Atrial fibrillation Discharge Goals: Decrease discomfort Activity: Resume your previous activity Non-emergency contact: Primary Care Provider Call non-emergency contact if: you have any medication questions Follow-up/Referrals: Jm Carrillo III, MD [Primary Care Provider] - 10/31/18 8:30 am (Please, follow up at Dr. Carrillo's office with his associate, Sherri Akins, on October 31 at 8:30 am. *If you need to change this appointment, call the office at [phone].) Diet: Regular Addtl Provider Instructions: Followup with PCP in 1-2 weeks Followup with cardiology in 2-4 weeks. Obtain a cbc in 1 week. Prescriptions: New cefdinir 300 mg capsule 300 mg PO BID 10 Days Qty: 20 RF: 0 Continued apixaban 5 mg tablet 5 mg PO BID RF: 0 baclofen 10 mg tablet 10 mg PO QID RF: 0 brimonidine 0.2 % drops 1 drops OP BID RF: 0 diltiazem HCl 240 mg capsule,extended release 24 hr 240 mg PO DAILY RF: 0 dorzolamide [Trusopt] 2 % drops 1 drops OP TID RF: 0 furosemide [Lasix] 40 mg tablet 40 mg PO DAILY RF: 0 lisinopril 40 mg tablet 40 mg PO DAILY RF: 0 methenamine hippurate 1 gram tablet 1 gm PO QPM RF: 0 multivitamin capsule 1 cap PO DAILY RF: 0 sertraline [Zoloft] 50 mg tablet 50 mg PO HS RF: 0 zolpidem 10 mg tablet 10 mg PO HS PRN (Reason: sleep) RF: 0 latanoprost 0.005 % drops 1 drp OPB HS RF: 0 metoprolol succinate 50 mg Tablet Extended Release 24 Hr 50 mg PO BID RF: 0 aspirin 81 mg Tablet,Delayed Release (Dr/Ec) 81 mg PO HS RF: 0 PreserVision AREDS-2 [id number] ct-kjuf-so-mg capsule 1 cap PO BID RF: 0 Stand-Alone Forms: [facility] Discharge Orders: Discharge Order (Routine); Ordered 10/29/18 Ordered By: Heber Kennedy Admission Data Admit Date/Time: 10/26/18 13:33 Attending Provider: Heber Kennedy Admit Provider: Bolivar Mares Primary Care Provider: Jm Carrillo III Other Providers: Donovan Garrison ; Leon Alvarez Service: Telemetry Other Interventions: Discharge Summary Assessment (RN) Last Done: 10/29/18 12:54 DC Date/Time DO NOT enter until pt leaves facility: 10/29/18 17:45
== END 2018-10-29 17:45 | disposition home health service (06) | DRG 698 ==
LOC: ED 10:28 → 2S 13:33 → SUATTDRO 13:33 → 2S 14:40

== ENCOUNTER 2018-11-12 12:59 | Inpatient (IN) ==
--- NOTE | 2018-11-12 14:30 | XRay Report ---
XR chest 1V portable CLINICAL HISTORY: Sepsis dyspnea COMPARISON STUDY: 10/26/2018 FINDINGS: Moderate cardiomegaly. Small right pleural effusion. Prominent pulmonary vasculature. IMPRESSION: Findings of congestive failure versus pulmonary edema slightly improved from the prior e xam. The above report was generated using voice recognition software. It may contain grammatical, syntax or spelling errors. Electronically signed by: Jose Smith M.D. 11/12/2018 2:29 PM
[2018-11-12 14:56] LABS: INR 1.1 (0.9-1.1); Partial Thromboplastin Ratio 1.2; Partial Thromboplastin Time 31.2 Seconds (21.0-31.0); Prothrombin Time 11.6 Seconds (9.0-12.0)
[2018-11-12 14:59] LABS: Alanine Aminotransferase 30 U/L (12-78); Albumin Level 3.3 gm/dl (3.4-5.0); Aspartate Aminotransferase 39 U/L (15-37); BUN Creatinine Ratio 27.1 (10-20); Blood Urea Nitrogen 29 mg/dl (7-18); Calcium 9.7 mg/dl (8.5-10.1); Carbon Dioxide 29 mmol/L (21-32); Chloride 108 mmol/L (98-107); Creatinine Clr Calc Pharmacy 76.2 ml/min; Est GFR (African American) 80.3; Est GFR (Non-African American) 69.3; Glucose 84 mg/dl (70-99); Potassium 3.8 mmol/L (3.5-5.1); Sodium 144 mmol/L (136-145)
[2018-11-12 15:04] LABS: Albumin Globulin Ratio 0.7 (0.9-2); Alkaline Phosphatase 155 U/L (45-117); Bilirubin,Total 1.4 mg/dl (0.2-1); Creatine Kinase 822 U/L (39-308); Creatine Kinase MB 7.1 ng/ml (0.5-3.6); Globulin 4.9 gm/dl (2.5-4.0); NT Pro B Type Natriuretic Pept 4094 pg/ml (0-900); Total Protein 8.2 gm/dl (6.4-8.2); Troponin I < 0.015 ng/ml (0-0.045)
[2018-11-12 15:19] LABS: Basophils # (auto) 0.04 K/uL (0-0.2); Basophils % (auto) 0.4 %; Eosinophils # (auto) 0.22 K/uL (0-0.5); Eosinophils % (auto) 2.2 %; Hematocrit (blood only) 45.3 % (42-52); Hemoglobin 14.6 g/dL (14.0-18.0); Immature Granulocytes # (auto) 0.03 K/uL (0.00-0.02); Immature Granulocytes % (auto) 0.3 %; Lymphocytes # (auto) 1.14 K/uL (1.2-3.4); Lymphocytes % (auto) 11.3 %; Mean Corpuscular Hgb Conc 32.2 g/dL (32-36); Mean Platelet Volume 11.3 fL (7.4-10.4); Monocytes # (auto) 0.95 K/uL (0.11-0.59); Monocytes % (auto) 9.4 %; Neutrophils # (auto) 7.73 K/uL (1.4-6.5); Neutrophils % (auto) 76.4 %; Platelet Count 364 K/uL (130-400); RDW Coefficient of Variation 17.5 % (11.5-14.5); RDW Standard Deviation 50.7 fL (36.4-46.3); Red Blood Count 5.59 M/uL (4.7-6.1); White Blood Count 10.11 K/uL (4.8-10.8)
[2018-11-12] MEDS ORDERED: FUROSEMIDE 40 MG/4 ML VIAL IV STA (16:28)
[2018-11-12] MEDS ORDERED: DAPTOmycin 525 MG in SYRINGE 0 ML IV ONE (16:47)
[2018-11-12] MEDS ORDERED: PIPERACILLIN/TAZOBACTAM 4.5 GM/120 ML BAG IV ONE (16:47)
[2018-11-12] MEDS ORDERED: PIPERACILL/TAZOBAC CONSULT ACTIVE PRN (16:47)
[2018-11-12 17:00] LABS: Appearance Urine Clear (Clear); Bacteria Urine Automated Negative (Negative); Bilirubin Urine Negative (Negative); Blood Urine 1+ (Negative); Cast Urine Automated 0 /lpf (0-5); Color Urine Yellow; Epithelial Cell Urine Auto 0-5 /lpf (0-5); Glucose Urine UA Negative (Negative); Ketones Urine Negative (Negative); Leukocyte Esterase Urine Negative (Negative); Nitrite Urine Negative (Negative); Specific Gravity Urine 1.014 (1.000-1.030); Urobilinogen Urine Negative (Negative)
[2018-11-12 17:10] LABS: Protein Urine 2+ (Negative)
--- NOTE | 2018-11-12 18:01 | History & Physical Report ---
Date of Service November 12, 2018 Assessment & Plan (1) Weakness: Guanakito is a 73-year-old male with a history of atrial fibrillation with cardiac pacer, diet-controlled diabetes mellitus, hypertension, spastic paralysis, CHF, and chronic indwelling Pedraza with a recent hospital admission from who presents with 2 to 3 days of weakness and difficulty transferring from wheelchair to toilet. He has been admitted for observation. Weakness Family had expressed concern that he may be getting a UTI. His UA does not show any bacteria or leukocyte esterase. He does not have a leukocytosis. Suspect his weakness is more likely chronic in the setting of recent hospitalization and deconditioning, exacerbated by recent diarrheal illness. May also have an element of acute on chronic congestive heart failure with a proBNP elevated to 4094. His chest x-ray shows some pulmonary edema bilaterally but improved compared to his last film on 10/26. Given his recent admission, chronic UTIs, and medical frailty will empirically cover with ceftriaxone 1 g daily. Received Zosyn and daptomycin x1 in the ED. CBC, BMP in the morning No electrolyte derangements, creatinine 1.06 Concern acute on chronic congestive heart failure Clinically patient's legs show increased edema compared to baseline. No JVD.proBNP is elevated as noted above. Chest x-ray improved from prior, but still shows some fluid. 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 No headache or signs of hypertensive crisis. Continue diltiazem ER 240 mg daily Furosemide as above Continue lisinopril 40 mg daily Metoprolol succinate 50 mg twice daily Depression Continue sertraline 50 mg p.o. daily Continue zolpidem 10 mg p.o. nightly as needed for sleep Atrial fibrillation status post cardiac pacer placement Complete heart block noted on admitting EKG Ventricular paced rhythm Admit to med/surge telemetry Continue apixaban 5 mg twice daily DVT prophylaxis: Apixaban 5 mg twice daily as above CODE STATUS: DNR/DNI. Discussed and confirmed with patient. (2) DVT prophylaxis: (3) Atrial fibrillation with RVR: (4) Artificial cardiac pacemaker: (5) Chronic indwelling Pedraza catheter: History of Present Illness Chief Complaint: Fatigue, weakness Primary Care Provider: Jm Carrillo MD Guanakito is a 73-year-old male with past medical history of atrial fibrillation status post pacer placement, diabetes mellitus, hypertension, peripheral vascular disease, glaucoma, congestive heart failure, and spastic paralysis chronic for 30 years who presents with increased fatigue and weakness for 3 days. He was recently admitted to [facility] from for UTI. He reports he felt completely back to his normal baseline for a couple of days, but 2 to 3 days ago he noticed he was feeling very tired and weak and was having difficulty transferring from his wheelchair to the toilet. He denies chest pain, shortness of breath, fever, chills, sweats. He notes he has had diarrhea for the last 4 days which was loose and occurring twice per day, but a ppeared to be resolving yesterday. He has not had any pain with urination, although he notes he has a chronic indwelling Pedraza and has not always had pain when he has been told he has a UTI in the past. He has not had any abdominal pain. He does not know any other symptoms. He denies any pain. Social: He lives alone in [place]. He has some family in the area. Reports he is wheelchair-bound but is normally able to get around okay at home with [facility]. Prior [id number] smoking history, no tobacco use in the last 45 years. No recent alcohol or substance use. No known medication allergies No known food allergies Family history on file Allergies Allergy/AdvReac Type Severity Reaction Status Date / Time No Known Allergies Allergy Verified 11/12/18 14:54 Home Medications Home Medications Medication Instructions Recorded Confirmed Type apixaban 5 mg tablet 5 mg PO BID 02/18/18 11/12/18 History baclofen 10 mg tablet 10 mg PO QID 02/18/18 11/12/18 History brimonidine 0.2 % eye drops 1 drops OP BID ml 02/18/18 11/12/18 History diltiazem ER 240 mg capsule,24 240 mg PO DAILY 02/18/18 11/12/18 History hr,extended release dorzolamide 2 % eye drops 1 drops OP TID 02/18/18 11/12/18 History furosemide 40 mg tablet 40 mg PO DAILY tab 02/18/18 11/12/18 History lisinopril 40 mg tablet 40 mg PO DAILY 02/18/18 11/12/18 History methenamine hippurate 1 gram tablet 1 gm PO QPM tab 02/18/18 11/12/18 History multivitamin capsule 1 cap PO DAILY 02/18/18 11/12/18 History sertraline 50 mg tablet 50 mg PO HS 02/18/18 11/12/18 History zolpidem 10 mg tablet 10 mg PO HS PRN tab 02/18/18 11/12/18 History PreserVision AREDS-2 1 cap PO BID 08/25/18 11/12/18 History aspirin 81 mg PO HS 08/25/18 11/12/18 History latanoprost 1 drp OPB HS 08/25/18 11/12/18 History metoprolol succinate 50 mg PO BID 08/25/18 11/12/18 History Past Med/Surg History Medical History A-fib (Acute) Leg ulcer (Acute) Cellulitis (Chronic) Diabetes 1.5, managed as type 2 (Chronic) Glaucoma (Chronic) HTN (hypertension) (Chronic) Hydrocele (Chronic) Scrotal mass (Chronic) Sepsis (Chronic) Small intestine obstruction (Chronic) Spastic paralysis (Chronic) UTI (urinary tract infection) (Chronic) Urinary retention (Chronic) Acute diastolic heart failure Surgical History History of toe surgery (Chronic) S/P TURP (Chronic) Social History Preferred Language: Uzbek Communication Ability: Effective Beliefs That Will Affect Care: None Current Living Situation: Alone Feels Safe at Home: Yes Smoking Status: Former smoker Tobacco Type: cigarettes Cigarettes Per Day: about 45 years ago Second Hand Exposure: No Hx Alcohol Use: No Hx Substance Use: No Review of Systems Review of Systems: Constitutional: Endorses fatigue, global weakness. 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 Gradually decreasing vision in his left eye, chronic over many years. No eye pain. ENT: Denies ear pain, sore throat, sinus pain Cardiovascular: Denies chest pain, chest pressure, palpitations. Endorses bilateral leg swelling. Respiratory: Denies shortness of breath, cough, sputum production, difficulty breathing Gastrointestinal: Denies abdominal pain, nausea, vomiting, constipation. Endorses diarrhea for 4 days, resolving. Genitourinary: Denies pain with urination, urinary urgency, urinary frequency. Chronic pedraza. Musculoskeletal: Endorses diffuse weakness. Denies muscle aches/pain, joint aches/pain Integumentary: Denies new rash, lesions, bruising Neurological: Denies headache, numbness, tingling, focal weakness Physical Exam Constitutional: WD/WN, vitals as above Eyes: No pupillary response to light in R eye. Blind in R eye. Decreased visual acuity in L eye. L eye responsible to light. No field cuts. EoM intact. ENMT: external ear and nose normal, oropharynx normal (with the exception of R ear occluded by cerumen) Neck: trachea midline, no thyromegaly Respiratory: Mild bibasilar crackles. Otherwise CTAB A&P. -wheezes, -rales, - rhonchi. Symmetrical chest rise. No increased work of breathing. No respiratory distress. Cardiovascular: Irregularly Irregular. Radial pulses intact bilaterally. No murmers/rubs appreciated. Chest (Breasts): Chest: normal inspection of chest Gastrointestinal (Abdomen): normal bowel sounds, soft, nontender, no hepatosplenomegaly Obese, softly distended. Large (7-8cm) reducible, non- incarcerated umbilical hernia. R inguinal crease with grade I-II mild skin breakdown, otherwise without rash. Musculoskeletal: Spastic paraplegia, able to slightly move toes bilaterally otherwise no leg movement. Sensation to soft and sharp touch intact in all extremities bilaterally. Lower legs with 2+ pitting edema to the knee bilaterally. Mild weeping ulcerations present. Skin: Skin warm and dry. Grade 1 skin breakdown in the right inguinal crease as noted above. Mild weeping ulcerations of the legs bilaterally. Approximately 5 cm reducible umbilical hernia, nonincarcerated. 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 Sensation intact to soft and sharp touch in all extremities. 5/5 strength to elbow flexion, elbow extension, wrist flexion, wrist extension, finger flexion, finger extension, interossei. 0/5 strength bilaterally in lower extremities.Skin is warm, dry without signs of autonomic dysreflexia. Results & Data Vital Signs (Past 12 Hours) Vital Signs Temp Pulse Resp BP Pulse Ox 11/12/18 15:30 69 18 90 11/12/18 15:21 66 16 187/115 H 92 11/12/18 15:15 68 14 91 11/12/18 15:00 83 16 90 11/12/18 14:45 71 15 91 11/12/18 14:30 72 14 90 11/12/18 14:15 71 16 90 11/12/18 14:00 76 22 91 11/12/18 13:50 73 20 90 11/12/18 13:15 36.5 C 74 16 202/105 H 93 Code Status & VTE Plan Code Status DNR/DNI. Discussed with patient. VTE Prophylaxis Plan VTE Prophylaxis will be ordered: Yes Supervising Physician Co-Signing Physician Notes I saw the patient with the resident physician and confirmed howard elements of the history and physical exam. I agree with the impression and plan as noted above. 73-year-old male with past medical history as noted above presents to the emergency department with nonspecific, generalized complaints of weakness and not feeling well over the last 2 to 3 days. Family and patient were concerned that he might have a recurrent urinary tract infection, however, he is afebrile with a normal white blood cell count and his urinalysis is not overly indicative of infection. Nonetheless he is a history of the same and is at high risk given his indwelling Pedraza catheter. His chest x-ray shows mild congestive heart failure/pulmonary edema and he has noticeable lower extremity edema which from the best I can tell and discussed with the patient is greater than his baseline. Observation for generalized weakness He looks to be slightly fluid overloaded He was given 1 dose of Lasix 40 mg IV in the emergency department and will repeat this in the a.m. Monitor output Repeat chest x-ray in a.m. Narrow antibiotic coverage to Rocephin 1 g daily Urine culture and blood cultures are pending Resume home medications PT and OT consultations Resident Activity Tracking Resident Involvement: Resident Care Provided Care Provided: Adult Hospital Medicine
[2018-11-12] MEDS ORDERED: VIT C E ZN COPPR LUTEIN ZEAXAN PO SCH (21:00)
[2018-11-12] MEDS: cefTRIAXone SODIUM 2,000 MG in DEXTROSE 5% 50 ML IV SCH (21:42)
[2018-11-12] MEDS: BACLOFEN 10 MG TAB PO SCH (21:43)
[2018-11-12] MEDS: APIXABAN 5 MG TABLET PO SCH (21:43)
[2018-11-12] MEDS: SERTRALINE HCL 50 MG TABLET PO SCH (21:43)
[2018-11-12] MEDS: LISINOPRIL 40 MG TAB PO SCH (21:44)
[2018-11-12] MEDS: METOPROLOL SUCC 50MG EXT REL TAB PO SCH (21:44)
[2018-11-12] MEDS: ASPIRIN 81 MG ECTAB PO SCH (21:44)
[2018-11-12] MEDS: LATANOPROST 0.005% OP SOLN 2.5 ML BTL OPB SCH (21:45)
[2018-11-12] MEDS: METHENAMINE HIPPURATE 1 GM TAB PO SCH (21:45)
[2018-11-12] MEDS: DORZOLAMIDE HCL 2% OPH SOLN 10 ML BTL OP SCH (21:46)
[2018-11-12] MEDS: BRIMONIDINE TARTRATE 0.2% 5ML OP SCH (21:46)
[2018-11-13] MEDS: ACETAMINOPHEN 325 MG TAB PO PRN ×2 (04:30→15:52)
[2018-11-13 06:00] LABS: Basophils # (auto) 0.04 K/uL (0-0.2); Basophils % (auto) 0.4 %; Eosinophils # (auto) 0.25 K/uL (0-0.5); Eosinophils % (auto) 2.4 %; Hematocrit (blood only) 42.2 % (42-52); Hemoglobin 13.6 g/dL (14.0-18.0); Immature Granulocytes # (auto) 0.03 K/uL (0.00-0.02); Immature Granulocytes % (auto) 0.3 %; Lymphocytes # (auto) 1.44 K/uL (1.2-3.4); Mean Corpuscular Hgb Conc 32.2 g/dL (32-36); Mean Corpuscular Volume 80.1 fL (80-100); Mean Platelet Volume 10.8 fL (7.4-10.4); Monocytes % (auto) 10.7 %; Neutrophils # (auto) 7.45 K/uL (1.4-6.5); Neutrophils % (auto) 72.2 %; Platelet Count 329 K/uL (130-400); RDW Coefficient of Variation 17.4 % (11.5-14.5); RDW Standard Deviation 49.6 fL (36.4-46.3); Red Blood Count 5.27 M/uL (4.7-6.1); White Blood Count 10.31 K/uL (4.8-10.8)
[2018-11-13 06:34] LABS: BUN Creatinine Ratio 25.3 (10-20); Calcium 8.5 mg/dl (8.5-10.1); Creatinine Clr Calc Pharmacy 79.2 ml/min; Est GFR (African American) 84.1; Est GFR (Non-African American) 72.6; Potassium 3.4 mmol/L (3.5-5.1)
[2018-11-13] MEDS: APIXABAN 5 MG TABLET PO SCH ×2 (08:16→20:31)
[2018-11-13] MEDS: METOPROLOL SUCC 50MG EXT REL TAB PO SCH ×2 (08:16→20:33)
[2018-11-13] MEDS: BACLOFEN 10 MG TAB PO SCH ×4 (08:17→20:31)
[2018-11-13] MEDS: dilTIAZem HCL 240 MG CAPCR PO SCH (08:17)
[2018-11-13] MEDS: LISINOPRIL 40 MG TAB PO SCH (08:17)
[2018-11-13] MEDS: MULTIVITAMIN TAB PO SCH (08:17)
[2018-11-13] MEDS: DORZOLAMIDE HCL 2% OPH SOLN 10 ML BTL OP SCH ×3 (08:17→20:33)
[2018-11-13] MEDS: BRIMONIDINE TARTRATE 0.2% 5ML OP SCH ×2 (08:18→20:31)
[2018-11-13] MEDS: FUROSEMIDE 40 MG in SYRINGE 0 ML IV SCH (08:22)
[2018-11-13] MEDS: POTASSIUM CHLORIDE 20 MEQ TABCR PO SCH ×3 (08:22→15:53)
[2018-11-13] MEDS ORDERED: PERFLUTREN LIPID MICROSPHERE (DEFINITY) IV ONE (12:36)
--- NOTE | 2018-11-13 16:38 | Family Medicine Progress Note ---
Date of Service November 13, 2018 Assessment & Plan (1) CHF (congestive heart failure): Guanakito is a 73-year-old male with a history of atrial fibrillation with cardiac pacer, diet-controlled diabetes mellitus, hypertension, spastic paralysis, CHF, and chronic indwelling Pedraza with a recent hospital admission from who presents with 2 to 3 days of weakness and difficulty transferring from wheelchair to toilet. He has been admitted for observation. Weakness Family had expressed concern that he may be getting a UTI. His UA does not show any bacteria or leukocyte esterase. He does not have a leukocytosis. Suspect his weakness is more likely due to acute on chronic congestive heart failure and fluid overload with an additional element of recent hospitalization+deconditioning. Admission chest x-ray showed bilateral pulmonary edema. Given his recent admission, chronic UTIs, and medical frailty will empirically cover with ceftriaxone 1 g daily. Received Zosyn and daptomycin x1 in the ED. UC pending. CBC, BMP in the morning Concern acute on chronic congestive heart failure Lower leg edema improved today. Had >3L output overnight with additional 2.7L output throughout the day with lasix. JVD to the angle of the mandible is appreciated today, suspect he may have had JVD yesterday with a meniscus past the ear. Lasix 40 mg IV x1 given in ED Lasix 40 mg IV x1 daily, follow I's and O's and assess clinical response. >4L output since admit. Repeat chest x-ray tomorrow - Mildly hypokalemic (3.4) today, Klor 20meq Q4H x3 doses given today. BMP in AM. -TTE shows mild concentric LVH, normal LV systolic function, severe LA dilation, mild RA dilation, some aortic stenosis, inferior vena cava dilation, overall no significant change from 11/2017. 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 No headache or signs of hypertensive crisis. BP slowly improving today. No room to increase his lisinopril/diltiazem. Continue diltiazem ER 240 mg daily - Furosemide as above Continue lisinopril 40 mg daily Metoprolol succinate 50 mg twice daily Depression Continue sertraline 50 mg p.o. daily Continue zolpidem 10 mg p.o. nightly as needed for sleep Atrial fibrillation status post cardiac pacer placement Complete heart block noted on admitting EKG Ventricular paced rhythm Admit to med/surg telemetry Continue apixaban 5 mg twice daily DVT prophylaxis: Apixaban 5 mg twice daily as above CODE STATUS: DNR/DNI. Discussed and confirmed with patient. (2) Altered mental status: (3) Weakness: Supervising Physician Co-Signing Physician Notes I saw the patient with the resident physician and confirmed howard elements of the history and physical exam. I agree with the impression and plan as noted above. The patient has had significant diuresis with the Lasix given yesterday afternoon. In fact he was about at 3 L this morning and when I saw him on rounds he had an additional 1.2 L in his Pedraza bag. Upon examination, he still has some pitting edema of the bilateral lower extremities but this is somewhat improved. There is also some erythema which the patient tells me is somewhat chronic. Diastolic heart failure, acute on chronic This was the suspicion yesterday, and his significant diuresis and improve lower extremity edema supports this diagnosis Continue IV Lasix Monitor I's and O's Replete potassium Repeat echocardiogram as noted above Atrial fibrillation, rate controlled Continue anticoagulation Hypertension Monitor Hopeful this will improve with reinitiation of his home medications LE erythema The patient reports that this is chronic though on examination I question if there is an acute component as well We will continue the Rocephin for now and monitor the lower extremity erythema; I would not escalate his antibiotics unless the erythema were to worsen Subjective Guanakito reports he continues to feel tired and worn out today. He notes that he slept poorly. He notes that the swelling in his legs has gone down substantially. He is not having difficulty breathing, and denies shortness of breath but just feels "worn out" he denies any fevers, chills, sweats, nausea, vomiting, constipation overnight. He notes his last bowel movement was yesterday a.m. and was formed. Review of Systems Review of Systems: Constitutional: Endorses fatigue, global weakness. 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 No eye pain. ENT: Denies ear pain, sore throat, sinus pain Cardiovascular: Denies chest pain, chest pressure, palpitations. Endorses bilateral leg swelling. improved. Respiratory: Denies shortness of breath, cough, sputum production, difficulty breathing Gastrointestinal: Denies abdominal pain, nausea, vomiting, constipation. Denies diarrhea today. Genitourinary: Denies pain with urination, urinary urgency, urinary frequency. Chronic pedraza. Musculoskeletal: Endorses diffuse weakness. Denies muscle aches/pain, joint aches/pain Integumentary: Denies new rash, lesions, bruising. Neurological: Denies headache, numbness, tingling, new focal weakness. He has chronic spastic paraplegia. Physical Exam Physical Exam: General: A&Ox3. NAD. Cooperative. Skin: Skin warm and dry. Grade 1 skin breakdown in the right inguinal crease. Bilateral leg edema, improved. mild bilateral lower extremity erythema with minimal warmth. mild weeping ulcerations of the legs bilaterally. Approximately 5 cm reducible umbilical hernia, nonincarcerated. HEENT: Atraumatic, normocephalic. Pulm: Persistent bibasilar crackles with out rales. Otherwise CTAB A&P. - wheezes, -rhonchi. Symmetrical chest rise. No increased work of breathing. No respiratory distress. Cardiac: RRR, -mrg. Radial pulses intact and symmetrical. JVD to the angle of the mandible. Abdominal: Obese, soft, nontender, soft. BS present. Results & Data Vital Signs (Past 12 Hours) Vital Signs Temp Pulse Pulse Resp BP BP Pulse Ox 11/13/18 04:29 36.8 C 72 20 161/99 H 96 11/13/18 00:53 92 11/12/18 23:59 79 11/12/18 23:34 36.5 C 80 20 160/84 H 89 L 11/12/18 22:28 160/84 H 11/12/18 21:19 36.5 C 79 188/106 H 92 11/12/18 19:50 87 20 202/115 H 92 Resident Activity Tracking Resident Involvement: Resident Care Provided Care Provided: Adult Hospital Medicine
[2018-11-13] MEDS: METHENAMINE HIPPURATE 1 GM TAB PO SCH (20:30)
[2018-11-13] MEDS: LATANOPROST 0.005% OP SOLN 2.5 ML BTL OPB SCH (20:30)
[2018-11-13] MEDS: ASPIRIN 81 MG ECTAB PO SCH (20:31)
[2018-11-13] MEDS: SERTRALINE HCL 50 MG TABLET PO SCH (20:34)
[2018-11-13] MEDS: cefTRIAXone SODIUM 2,000 MG in DEXTROSE 5% 50 ML IV SCH (20:55)
[2018-11-13] MEDS: ZOLPIDEM TARTRATE 10 MG TAB PO PRN (21:32)
[2018-11-14 06:37] LABS: Basophils # (auto) 0.02 K/uL (0-0.2); Basophils % (auto) 0.2 %; Eosinophils # (auto) 0.48 K/uL (0-0.5); Hemoglobin 13.2 g/dL (14.0-18.0); Immature Granulocytes # (auto) 0.01 K/uL (0.00-0.02); Immature Granulocytes % (auto) 0.1 %; Lymphocytes # (auto) 1.34 K/uL (1.2-3.4); Lymphocytes % (auto) 16.6 %; Mean Corpuscular Hgb Conc 31.4 g/dL (32-36); Mean Corpuscular Volume 81.1 fL (80-100); Mean Platelet Volume 11.2 fL (7.4-10.4); Monocytes # (auto) 0.98 K/uL (0.11-0.59); Monocytes % (auto) 12.2 %; Neutrophils # (auto) 5.23 K/uL (1.4-6.5); Neutrophils % (auto) 64.9 %; Platelet Count 308 K/uL (130-400); RDW Coefficient of Variation 17.9 % (11.5-14.5); RDW Standard Deviation 52.3 fL (36.4-46.3); Red Blood Count 5.18 M/uL (4.7-6.1); White Blood Count 8.06 K/uL (4.8-10.8)
[2018-11-14 07:18] LABS: BUN Creatinine Ratio 25.5 (10-20); Calcium 8.6 mg/dl (8.5-10.1); Creatinine Clr Calc Pharmacy 70.1 ml/min; Est GFR (African American) 75.1; Est GFR (Non-African American) 64.8; Potassium 3.7 mmol/L (3.5-5.1)
--- NOTE | 2018-11-14 07:23 | XRay Report ---
XR chest 1V portable HISTORY: Shortness of breath. pulmonary edema COMPARISON: Chest 11/12/2018. FINDINGS: No significant change in the mild interstitial pulmonary edema and small bilateral pleural effusions/densities. No pneumothorax. The heart remains stable in size. Left-sided single lead pacema ker. IMPRESSION: No significant change in the mild interstitial pulmonary edema and bilateral pleural effusions/densit ies. Electronically signed by: Shailesh Thompson M.D. 11/14/2018 7:21 AM
[2018-11-14] MEDS: DORZOLAMIDE HCL 2% OPH SOLN 10 ML BTL OP SCH ×3 (08:44→21:02)
[2018-11-14] MEDS: BRIMONIDINE TARTRATE 0.2% 5ML OP SCH ×2 (08:45→21:02)
[2018-11-14] MEDS: FUROSEMIDE 40 MG in SYRINGE 0 ML IV SCH (08:45)
[2018-11-14] MEDS: BACLOFEN 10 MG TAB PO SCH ×4 (08:46→21:03)
[2018-11-14] MEDS: MULTIVITAMIN TAB PO SCH (08:46)
[2018-11-14] MEDS: METOPROLOL SUCC 50MG EXT REL TAB PO SCH ×2 (08:46→21:03)
[2018-11-14] MEDS: LISINOPRIL 40 MG TAB PO SCH (08:46)
[2018-11-14] MEDS: APIXABAN 5 MG TABLET PO SCH ×2 (08:46→21:02)
[2018-11-14] MEDS: dilTIAZem HCL 240 MG CAPCR PO SCH (08:47)
--- NOTE | 2018-11-14 13:15 | Family Medicine Progress Note ---
Date of Service November 14, 2018 Assessment & Plan (1) Weakness: Guanakito is a 73-year-old male with a history of atrial fibrillation with cardiac pacer, diet-controlled diabetes mellitus, hypertension, spastic paralysis, CHF, and chronic indwelling Pedraza with a recent hospital admission from who presents with 2 to 3 days of weakness and difficulty transferring from wheelchair to toilet. Acute on chronic congestive heart failure Lower leg edema continues to be improved today. His weight is down from 104kg to 98.8kg, no signs of hypotension. Repeat chest x-ray this morning shows no change, pulmonary edema with some bilat effusions. - Cr remains stable. - Continue lasix 40mg IV daily, +1 additional dose tonight. Follow Cr/BUN for uptrend when we close in on his dry weight. - PT to see Weakness Family had expressed concern that he may be getting a UTI. His UA does not sh ow any bacteria or leukocyte esterase. He does not have a leukocytosis. Suspect his weakness is more likely due to acute on chronic congestive heart failure and fluid overload with an additional element of recent hospitalization+deconditioning. His UC was negative. Admission chest x-ray showed bilateral pulmonary edema. Given his recent admission, chronic UTIs, and medical frailty was empirically covered with Zosyn/Dapto narrowed to rocephin. UC is negative. CBC, BMP daily - Improving today. No signs clinical signs of UTI. Suspect weakness 2/2 AoC CHF as below. LE Cellulitis - His lower legs bilaterally are mildly erythematous with some demarkation. 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 Continue diltiazem ER 240 mg daily - Furosemide as above Continue lisinopril 40 mg daily Metoprolol succinate 50 mg twice daily Depression Continue sertraline 50 mg p.o. daily Continue zolpidem 10 mg p.o. nightly as needed for sleep Atrial fibrillation status post cardiac pacer placement Complete heart block noted on admitting EKG Ventricular paced rhythm Admit to med/surg telemetry Continue apixaban 5 mg twice daily DVT prophylaxis: Apixaban 5 mg twice daily as above Supervising Physician Co-Signing Physician Notes I saw the patient with the resident physician and confirmed howard elements of the history and physical exam. I agree with the impression and plan as noted above. The patient looks and feels much better today. He is out of bed in his wheelchair. He states he feels as good as he has in months. Diastolic heart failure, acute on chronic He is down about 5 kg and 4-1/2 L of fluid as of this morning Continue IV Lasix Monitor I's and O's Replete potassium Cellulitis, lower extremities Continue Rocephin Would transition to Keflex as outpatient Atrial fibrillation, rate controlled Continue anticoagulation Hypertension Monitor Subjective Guanakito reports he "had the best sleep he has had in 3 years ". He is not sure how his strength is today, but would like to try transferring to his wheelchair and seeing how strength is doing. He has not had any fevers, chills, chest pain overnight. He has not been lightheaded or dizzy. Review of Systems Review of Systems: Constitutional: Endorses fatigue, global weakness. Thinks is may be improved today. 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 No eye pain. ENT: Denies sore throat, cough Cardiovascular: Denies chest pain, chest pressure, palpitations. Endorses improving bilat leg swelling. improved. Respiratory: Denies shortness of breath, cough, sputum production, difficulty breathing Gastrointestinal: Denies abdominal pain, nausea, vomiting, constipation. Denies diarrhea today. Genitourinary: Denies pain with urination, urinary urgency, urinary frequency. Chronic pedraza. Musculoskeletal: Endorses diffuse weakness. Denies muscle aches/pain, joint aches/pain Integumentary: Denies new rash, lesions, bruising. Neurological: Denies headache, numbness, tingling, new focal weakness. He has chronic spastic paraplegia. Physical Exam Physical Exam: General: A&Ox3. NAD. Cooperative. Skin: Skin warm and dry. Bilateral leg edema trace to 1+ today, greatly improved. Approximately 5 cm reducible umbilical hernia, non-incarcerated. Mild bilateral LE erythema. HEENT: Atraumatic, normocephalic. Pulm: Bibasilar crackles. Otherwise CTAB A&P. -wheezes, -rhonchi. Symmetrical chest rise. No increased work of breathing. No respiratory distress. Cardiac: RRR, -mrg. Radial pulses intact and symmetrical. Abdominal: Obese, soft, nontender, soft. BS present. Results & Data Vital Signs (Past 12 Hours) Vital Signs Temp Pulse Pulse Resp BP BP Pulse Ox 11/14/18 07:39 76 11/14/18 07:21 36.6 C 75 18 171/96 H 96 11/14/18 03:07 36.8 C 85 20 169/92 H 93 11/13/18 23:59 72 11/13/18 23:31 36.4 C L 78 16 125/82 90 Resident Activity Tracking Resident Involvement: Resident Care Provided Care Provided: Adult Hospital Medicine
[2018-11-14] MEDS ORDERED: FUROSEMIDE 40 MG in SYRINGE 0 ML IV SCH (17:00)
[2018-11-14] MEDS: LATANOPROST 0.005% OP SOLN 2.5 ML BTL OPB SCH (21:02)
[2018-11-14] MEDS: SERTRALINE HCL 50 MG TABLET PO SCH (21:03)
[2018-11-14] MEDS: ZOLPIDEM TARTRATE 10 MG TAB PO PRN (21:30)
[2018-11-14] MEDS: ASPIRIN 81 MG ECTAB PO SCH (21:55)
[2018-11-14] MEDS: cefTRIAXone SODIUM 2,000 MG in DEXTROSE 5% 50 ML IV SCH (23:29)
[2018-11-15 06:29] LABS: Basophils # (auto) 0.02 K/uL (0-0.2); Basophils % (auto) 0.2 %; Eosinophils # (auto) 0.63 K/uL (0-0.5); Eosinophils % (auto) 6.6 %; Hematocrit (blood only) 42.2 % (42-52); Hemoglobin 13.6 g/dL (14.0-18.0); Immature Granulocytes # (auto) 0.02 K/uL (0.00-0.02); Immature Granulocytes % (auto) 0.2 %; Lymphocytes % (auto) 13.6 %; Mean Corpuscular Hgb Conc 32.2 g/dL (32-36); Mean Corpuscular Volume 81.3 fL (80-100); Mean Platelet Volume 10.7 fL (7.4-10.4); Monocytes # (auto) 0.93 K/uL (0.11-0.59); Monocytes % (auto) 9.7 %; Neutrophils # (auto) 6.68 K/uL (1.4-6.5); Neutrophils % (auto) 69.7 %; Platelet Count 316 K/uL (130-400); RDW Coefficient of Variation 17.6 % (11.5-14.5); RDW Standard Deviation 51.8 fL (36.4-46.3); Red Blood Count 5.19 M/uL (4.7-6.1); White Blood Count 9.58 K/uL (4.8-10.8)
[2018-11-15 07:05] LABS: BUN Creatinine Ratio 22.4 (10-20); Calcium 8.6 mg/dl (8.5-10.1); Creatinine Clr Calc Pharmacy 74.1 ml/min; Est GFR (African American) 81.2; Est GFR (Non-African American) 70.1; Potassium 3.5 mmol/L (3.5-5.1)
--- NOTE | 2018-11-15 07:13 | Emergency Department Note ---
Entered by Kaylah Bunch acting as a scribe for History of Present Illness General Chief complaint: Weakness Stated complaint: CONFUSION,WEAK,? SEPSIS,BILAT EDEMA,DIARRHEA Time Seen by Provider: 11/12/18 13:25 Source: patient and family History of Present Illness Provider complaint: bilateral leg weakness Onset (ago): day(s) (few days ago) Location: lower extremity (bilateral) Pain Consistency: + other (episode) Maximum Pain Intensity: 0 Quality: + other (weakness) Associated symptoms: + other (leg swelling, anxiety); no fever/chills Treatments prior to arrival: none (denies tylenol and ibuprofen ) The patient is a 73 year old male who presents to the ED with complaints of ayse ateral leg weakness. He complains of weakness in both legs and states he cannot stand up. He states that this sensation started a "long time ago", but has gotten worse over the past few days. The son reports that he patient has a history of spastic spinal paraparesis, edema in his legs, and sepsis from a catheterization. The son also states that the patient hasn't slept in 3 days, experiences anxiety when laying down and that the swelling worsens when sitting in a chair. He has been experiencing diarrhea from recent antibiotics, per his son. The patient denies a fever, and did not take any Tylenol or Ibuprofen prior to visit today. Home Medications Home Medications Medication Instructions Recorded Confirmed Type apixaban 5 mg tablet 5 mg PO BID 02/18/18 11/12/18 History baclofen 10 mg tablet 10 mg PO QID 02/18/18 11/12/18 History brimonidine 0.2 % eye drops 1 drops OP BID ml 02/18/18 11/12/18 History diltiazem ER 240 mg capsule,24 240 mg PO DAILY 02/18/18 11/12/18 History hr,extended release dorzolamide 2 % eye drops 1 drops OP TID 02/18/18 11/12/18 History furosemide 40 mg tablet 40 mg PO DAILY tab 02/18/18 11/12/18 History lisinopril 40 mg tablet 40 mg PO DAILY 02/18/18 11/12/18 History methenamine hippurate 1 gram tablet 1 gm PO QPM tab 02/18/18 11/12/18 History multivitamin capsule 1 cap PO DAILY 02/18/18 11/12/18 History sertraline 50 mg tablet 50 mg PO HS 02/18/18 11/12/18 History zolpidem 10 mg tablet 10 mg PO HS PRN tab 02/18/18 11/12/18 History PreserVision AREDS-2 1 cap PO BID 08/25/18 11/12/18 History aspirin 81 mg PO HS 08/25/18 11/12/18 History latanoprost 1 drp OPB HS 08/25/18 11/12/18 History metoprolol succinate 50 mg PO BID 08/25/18 11/12/18 History Allergies Allergy/AdvReac Type Severity Reaction Status Date / Time No Known Allergies Allergy Verified 11/12/18 14:54 Past Med/Surg History Medical History A-fib (Acute) Leg ulcer (Acute) Cellulitis (Chronic) Diabetes 1.5, managed as type 2 (Chronic) Glaucoma (Chronic) HTN (hypertension) (Chronic) Hydrocele (Chronic) Scrotal mass (Chronic) Sepsis (Chronic) Small intestine obstruction (Chronic) Spastic paralysis (Chronic) UTI (urinary tract infection) (Chronic) Urinary retention (Chronic) Acute diastolic heart failure Surgical History History of toe surgery (Chronic) S/P TURP (Chronic) Social History Preferred Language: Nepali Communication Ability: Effective Spindle Carver Required: No Beliefs That Will Affect Care: None Current Living Situation: Alone Other Information That Helps Us Care for You: No Feels Safe at Home: Yes Safety Concerns: Feels Safe At This Time Smoking Status: Unknown if ever smoked Hx Alcohol Use: No Hx Substance Use: No Review of Systems See HPI for pertinent positives & negatives. and A total of 10 systems reviewed and were otherwise negative Physical Exam Vital Signs Vital Signs - 24 hr 11/14/18 07:21 11/14/18 07:39 11/14/18 08:00 Temperature 36.6 C Temperature Source Oral Pulse Rate 76 Pulse Rate [Left Radial] 75 Respiratory Rate 18 Respiratory Effort / Characteristics Non-Labored Spontaneous SOB on Exertion Respiratory Depth Normal Respiratory Pattern Regular Blood Pressure [Left Arm] 171/96 H Blood Pressure Mean [Left Arm] 121 Pulse Oximetry 96 Oxygen Delivery Method Nasal Cannula Room Air Oxygen Flow Rate 2 GENERAL: Awake, alert, well-appearing, in no acute distress HENT: Normocephalic, atraumatic. Oropharynx unremarkable. EYES: Normal conjunctiva. Sclera non-icteric. NECK: Supple. No nuchal rigidity. FROM. No JVD. RESPIRATORY: Clear to auscultation. CARDIAC: Regular rate, normal rhythm. Extremities warm and well perfused. Pulses equal. ABDOMEN: Soft, non-distended. No tenderness to palpation. No rebound or g uarding. No masses. RECTAL: Deferred. : Coon in place. MUSCULOSKELETAL: Chest examination reveals no tenderness. The back is symmetrical on inspection without obvious abnormality. There is no CVA t enderness to palpation. No joint edema. LOWER EXTREMITIES: Paraplegic. Left leg significantly larger than right. +2 Pitting edema in left leg to knee. Non-tender. No discoloration. NEURO: Normal sensorium. No sensory or motor deficits noted. SKIN: No rash or jaundice noted. Course 1331: The patient was evaluated in room B9. A complete history and physical were performed. 1636: I reevaluated the patient and he is resting comfortably. I discussed my recommendation to be admitted and he was in complete understanding and agreement of the plan. 1644: I discussed the patient's case with Dr. Salcedo. [facility], the patient will be further evaluated. Consultations Consultation #1: I discussed the patient's case with Dr. Salcedo. [facility], the patient will be further evaluated. Time: 16:44 Administered Medications Acetaminophen (Tylenol) 650 mg PO Q4H PRN PRN Reason: Pain Stop: 12/13/18 04:13 Last Admin: 11/13/18 15:52 Dose: 650 mg Documented by: [id number] Admin: 11/13/18 04:30 Dose: 650 mg Documented by: [id number] Apixaban (Eliquis) 5 mg PO BID MOE Stop: 12/12/18 20:59 Last Admin: 11/14/18 21:02 Dose: 5 mg Documented by: [id number] Admin: 11/14/18 08:46 Dose: 5 mg Documented by: [id number] Admin: 11/13/18 20:31 Dose: 5 mg Documented by: [id number] Admin: 11/13/18 08:16 Dose: 5 mg Documented by: [id number] Admin: 11/12/18 21:43 Dose: 5 mg Documented by: [id number] Aspirin (Ecotrin Ectab) 81 mg PO HS MOE Stop: 12/12/18 20:59 Last Admin: 11/14/18 21:55 Dose: 81 mg Documented by: [id number] Admin: 11/13/18 20:31 Dose: 81 mg Documented by: [id number] Admin: 11/12/18 21:44 Dose: 81 mg Documented by: [id number] Baclofen (Lioresal) 10 mg PO QID MOE Stop: 12/12/18 20:59 Last Admin: 11/14/18 21:03 Dose: 10 mg Documented by: [id number] Admin: 11/14/18 17:12 Dose: 10 mg Documented by: [id number] Admin: 11/14/18 13:13 Dose: 10 mg Documented by: [id number] Admin: 11/14/18 08:46 Dose: 10 mg Documented by: [id number] Admin: 11/13/18 20:31 Dose: 10 mg Documented by: [id number] Admin: 11/13/18 17:53 Dose: 10 mg Documented by: [id number] Admin: 11/13/18 13:08 Dose: 10 mg Documented by: [id number] Admin: 11/13/18 08:17 Dose: 10 mg Documented by: [id number] Admin: 11/12/18 21:43 Dose: 10 mg Documented by: [id number] Brimonidine Tartrate (Alphagan 0.2%) 1 drops OP BID MOE Stop: 12/12/18 20:59 Last Admin: 11/14/18 21:02 Dose: 1 drops Documented by: [id number] Admin: 11/14/18 08:45 Dose: 1 drops Documented by: [id number] Admin: 11/13/18 20:31 Dose: 1 drops Documented by: [id number] Admin: 11/13/18 08:18 Dose: 1 drops Documented by: [id number] Admin: 11/12/18 21:46 Dose: 1 drops Documented by: [id number] Diltiazem HCl (Cardizem Cd) 240 mg PO DAILY MOE Stop: 12/13/18 08:59 Last Admin: 11/14/18 08:47 Dose: 240 mg Documented by: [id number] Admin: 11/13/18 08:17 Dose: 240 mg Documented by: [id number] Dorzolamide HCl (Trusopt 2% Oph) 1 drops OP TID MOE Stop: 12/12/18 20:59 Last Admin: 11/14/18 21:02 Dose: 1 drops Documented by: [id number] Admin: 11/14/18 13:14 Dose: 1 drops Documented by: [id number] Admin: 11/14/18 08:44 Dose: 1 drops Documented by: [id number] Admin: 11/13/18 20:33 Dose: 1 drops Documented by: [id number] Admin: 11/13/18 13:08 Dose: 1 drops Documented by: [id number] Admin: 11/13/18 08:17 Dose: 1 drops Documented by: [id number] Admin: 11/12/18 21:46 Dose: 1 drops Documented by: [id number] Ceftriaxone Sodium 2,000 mg/ (Dextrose) 70 mls @ 140 mls/hr IV Q24H MOE; Protocol Stop: 11/17/18 20:59 Last Infusion: 11/15/18 00:16 Dose: 0 mls/hr Documented by: [id number] Admin: 11/14/18 23:29 Dose: 140 mls/hr Documented by: [id number] Infusion: 11/13/18 21:32 Dose: 140 mls/hr Documented by: [id number] Admin: 11/13/18 20:55 Dose: 140 mls/hr Documented by: [id number] Infusion: 11/12/18 22:23 Dose: 140 mls/hr Documented by: [id number] Admin: 11/12/18 21:42 Dose: 140 mls/hr Documented by: [id number] Furosemide 40 mg/ Syringe 4 mls @ 4 mls/min IV DAILY MOE Stop: 12/13/18 08:59 Last Admin: 11/14/18 08:45 Dose: 4 mls/min Documented by: [id number] Admin: 11/13/18 08:22 Dose: 4 mls/min Documented by: [id number] Latanoprost (Xalatan Oph) 1 drops OPB HS MOE Stop: 12/12/18 20:59 Last Admin: 11/14/18 21:02 Dose: 1 drops Documented by: [id number] Admin: 11/13/18 20:30 Dose: 1 drops Documented by: [id number] Admin: 11/12/18 21:45 Dose: 1 drops Documented by: [id number] Lisinopril (Zestril) 40 mg PO DAILY MOE Stop: 12/12/18 20:38 Last Admin: 11/14/18 08:46 Dose: 40 mg Documented by: [id number] Admin: 11/13/18 08:17 Dose: 40 mg Documented by: [id number] Admin: 11/12/18 21:44 Dose: 40 mg Documented by: [id number] Methenamine Hippurate (Urex) 1 gm PO QPM MOE Stop: 11/17/18 20:59 Last Admin: 11/13/18 20:30 Dose: 1 gm Documented by: [id number] Admin: 11/12/18 21:45 Dose: 1 gm Documented by: [id number] Metoprolol Succinate (Toprol Xl) 50 mg PO BID MOE Stop: 12/12/18 20:59 Last Admin: 11/14/18 21:03 Dose: 50 mg Documented by: [id number] Admin: 11/14/18 08:46 Dose: 50 mg Documented by: [id number] Admin: 11/13/18 20:33 Dose: 50 mg Documented by: [id number] Admin: 11/13/18 08:16 Dose: 50 mg Documented by: [id number] Admin: 11/12/18 21:44 Dose: 50 mg Documented by: [id number] Multivitamins (Multivitamin Tab) 1 tab PO DAILY MOE Stop: 12/13/18 08:59 Last Admin: 11/14/18 08:46 Dose: 1 tab Documented by: [id number] Admin: 11/13/18 08:17 Dose: 1 tab Documented by: [id number] Sertraline HCl (Zoloft) 50 mg PO HS MOE Stop: 12/12/18 20:59 Last Admin: 11/14/18 21:03 Dose: 50 mg Documented by: [id number] Admin: 11/13/18 20:34 Dose: 50 mg Documented by: [id number] Admin: 11/12/18 21:43 Dose: 50 mg Documented by: [id number] Zolpidem Tartrate (Ambien) 10 mg PO HS PRN PRN Reason: sleep Stop: 12/12/18 20:38 Last Admin: 11/14/18 21:30 Dose: 10 mg Documented by: [id number] Admin: 11/13/18 21:32 Dose: 10 mg Documented by: [id number] Discontinued Medications Furosemide (Lasix) 40 mg IV NOW STA Stop: 11/12/18 16:29 Last Admin: 11/12/18 17:16 Dose: 40 mg Documented by: [id number] Piperacillin Sod/Tazobactam Sod (Zosyn) 4.5 gm in 120 mls @ 240 mls/hr IV NOW ONE Stop: 11/12/18 17:16 Last Infusion: 11/12/18 18:16 Dose: 0 mls/hr Documented by: [id number] Admin: 11/12/18 17:16 Dose: 240 mls/hr Documented by: [id number] Daptomycin 525 mg/ Syringe 10.5 mls @ 5.25 mls/min IV NOW ONE; Protocol Stop: 11/12/18 16:48 Last Admin: 11/12/18 18:16 Dose: 5.25 mls/min Documented by: [id number] Furosemide 40 mg/ Syringe 4 mls @ 4 mls/min IV TODAY@1700 MOE Stop: 11/14/18 17:01 Last Admin: 11/14/18 17:11 Dose: 4 mls/min Documented by: [id number] Non-Formulary Medication (Vit C,T-Pd-Wxkau-Lutein-Zeaxan [Preservision Areds-2]) 1 cap PO BID [facility] Stop: 12/12/18 20:59 Last Admin: 11/13/18 02:29 Dose: Not Given Documented by: [id number] Perflutren Lipid Microsphere (Definity) 2 ml IV ONCE ONE Stop: 11/13/18 12:37 Last Admin: 11/13/18 12:37 Dose: 2 ml Documented by: [id number] Potassium Chloride (Klor-Con M20) 20 meq PO Q4H MOE Stop: 11/13/18 16:01 Last Admin: 11/13/18 15:53 Dose: 20 meq Documented by: [id number] Admin: 11/13/18 13:07 Dose: 20 meq Documented by: [id number] Admin: 11/13/18 08:22 Dose: 20 meq Documented by: [id number] Medical Decision Making Differential Diagnosis Differential Diagnosis includes but is not limited to dehydration, stroke, anemia, hypoglycemia, hyponatremia, hypernatremia, urinary tract infection, pneumonia, bronchitis, sepsis, gastroenteritis, additional abdominal pathology, metabolic abnormalities and infections. Medical Records Attestation: I reviewed the patient's medical records. Home Medications Current Medication List: was personally reviewed by me Laboratory Data Attestation: I reviewed the patient's lab results. Result diagrams: 11/15/18 06:14 11/15/18 06:14 Lab Results 11/12/18 11/12/18 11/12/18 Range/Units 14:21 14:21 14:21 WBC 10.11 (4.8-10.8) K/uL RBC 5.59 (4.7-6.1) M/uL Hgb 14.6 (14.0-18.0) g/dL Hct 45.3 (42-52) % MCV 81.0 (80-100) fL MCH 26.1 (25-34) pg MCHC 32.2 (32-36) g/dL RDW Std Deviation 50.7 H (36.4-46.3) fL RDW Coeff of Da 17.5 H (11.5-14.5) % Plt Count 364 (130-400) K/uL MPV 11.3 H (7.4-10.4) fL Immature Gran % (Auto) 0.3 % Neut % (Auto) 76.4 % Lymph % (Auto) 11.3 % Wells % (Auto) 9.4 % Eos % (Auto) 2.2 % Baso % (Auto) 0.4 % Immature Gran # (Auto) 0.03 H (0.00-0.02) K/uL Neut # (Auto) 7.73 H (1.4-6.5) K/uL Lymph # (Auto) 1.14 L (1.2-3.4) K/uL Wells # (Auto) 0.95 H (0.11-0.59) K/uL Eos # (Auto) 0.22 (0-0.5) K/uL Baso # (Auto) 0.04 (0-0.2) K/uL PT 11.6 (9.0-12.0) Seconds INR 1.1 (0.9-1.1) APTT 31.2 H (21.0-31.0) Seconds PTT Ratio 1.2 Sodium 144 (136-145) mmol/L Potassium 3.8 (3.5-5.1) mmol/L Chloride 108 H (98-107) mmol/L Carbon Dioxide 29 (21-32) mmol/L Anion Gap 7.0 (3-11) BUN 29 H (7-18) mg/dl Creatinine 1.06 (0.6-1.4) mg/dl Est Cr Clr Drug Dosing 76.2 ml/min Est GFR ( Amer) 80.3 Est GFR (Non-Af Amer) 69.3 BUN/Creatinine Ratio 27.1 H (10-20) Glucose 84 (70-99) mg/dl POC Glucose (70-99) POC Lactic Acid Joni (0.90-1.70) mmol/L Calcium 9.7 (8.5-10.1) mg/dl Total Bilirubin 1.4 H (0.2-1) mg/dl AST 39 H (15-37) U/L ALT 30 (12-78) U/L Alkaline Phosphatase 155 H (45-117) U/L Total Creatine Kinase 822 H (39-308) U/L CK-MB (CK-2) 7.1 H (0.5-3.6) ng/ml CK/CKMB % Calc 0.9 (0-3.0) Troponin I < 0.015 (0-0.045) ng/ml NT-Pro-B Natriuret Pep 4094 H (0-900) pg/ml Total Protein 8.2 (6.4-8.2) gm/dl Albumin 3.3 L (3.4-5.0) gm/dl Globulin 4.9 H (2.5-4.0) gm/dl Albumin/Globulin Ratio 0.7 L (0.9-2) Urine Color Urine Appearance (Clear) Urine pH (4.5-7.5) Ur Specific Brandon (1.000-1.030) Urine Protein (Negative) Urine Glucose (UA) (Negative) Urine Ketones (Negative) Urine Blood (Negative) Urine Nitrite (Negative) Urine Bilirubin (Negative) Urine Urobilinogen (Negative) Ur Leukocyte Esterase (Negative) Urine WBC (Auto) (0-5) /hpf Urine RBC (Auto) (0-4) /hpf U Hyaline Cast (Auto) (0-5) /lpf U Epithel Cells (Auto) (0-5) /lpf Urine Bacteria (Auto) (Negative) 11/12/18 11/12/18 11/12/18 Range/Units 14:21 14:30 16:42 WBC (4.8-10.8) K/uL RBC (4.7-6.1) M/uL Hgb (14.0-18.0) g/dL Hct (42-52) % MCV (80-100) fL MCH (25-34) pg MCHC (32-36) g/dL RDW Std Deviation (36.4-46.3) fL RDW Coeff of Da (11.5-14.5) % Plt Count (130-400) K/uL MPV (7.4-10.4) fL Immature Gran % (Auto) % Neut % (Auto) % Lymph % (Auto) % Wells % (Auto) % Eos % (Auto) % Baso % (Auto) % Immature Gran # (Auto) (0.00-0.02) K/uL Neut # (Auto) (1.4-6.5) K/uL Lymph # (Auto) (1.2-3.4) K/uL Wells # (Auto) (0.11-0.59) K/uL Eos # (Auto) (0-0.5) K/uL Baso # (Auto) (0-0.2) K/uL PT (9.0-12.0) Seconds INR (0.9-1.1) APTT (21.0-31.0) Seconds PTT Ratio Sodium (136-145) mmol/L Potassium (3.5-5.1) mmol/L Chloride (98-107) mmol/L Carbon Dioxide (21-32) mmol/L Anion Gap (3-11) BUN (7-18) mg/dl Creatinine (0.6-1.4) mg/dl Est Cr Clr Drug Dosing ml/min Est GFR ( Amer) Est GFR (Non-Af Amer) BUN/Creatinine Ratio (10-20) Glucose (70-99) mg/dl POC Glucose (70-99) POC Lactic Acid Joni 1.40 (0.90-1.70) mmol/L Calcium (8.5-10.1) mg/dl Total Bilirubin (0.2-1) mg/dl AST (15-37) U/L ALT (12-78) U/L Alkaline Phosphatase (45-117) U/L Total Creatine Kinase (39-308) U/L CK-MB (CK-2) (0.5-3.6) ng/ml CK/CKMB % Calc (0-3.0) Troponin I (0-0.045) ng/ml NT-Pro-B Natriuret Pep Cancelled (0-900) pg/ml Total Protein (6.4-8.2) gm/dl Albumin (3.4-5.0) gm/dl Globulin (2.5-4.0) gm/dl Albumin/Globulin Ratio (0.9-2) Urine Color Yellow Urine Appearance Clear (Clear) Urine pH 8.0 H (4.5-7.5) Ur Specific Brandon 1.014 (1.000-1.030) Urine Protein 2+ H (Negative) Urine Glucose (UA) Negative (Negative) Urine Ketones Negative (Negative) Urine Blood 1+ H (Negative) Urine Nitrite Negative (Negative) Urine Bilirubin Negative (Negative) Urine Urobilinogen Negative (Negative) Ur Leukocyte Esterase Negative (Negative) Urine WBC (Auto) 1-5 (0-5) /hpf Urine RBC (Auto) 10-30 H (0-4) /hpf U Hyaline Cast (Auto) 0 (0-5) /lpf U Epithel Cells (Auto) 0-5 (0-5) /lpf Urine Bacteria (Auto) Negative (Negative) 11/12/18 11/13/18 11/13/18 Range/Units 20:35 05:42 05:42 WBC 10.31 (4.8-10.8) K/uL RBC 5.27 (4.7-6.1) M/uL Hgb 13.6 L (14.0-18.0) g/dL Hct 42.2 (42-52) % MCV 80.1 (80-100) fL MCH 25.8 (25-34) pg MCHC 32.2 (32-36) g/dL RDW Std Deviation 49.6 H (36.4-46.3) fL RDW Coeff of Da 17.4 H (11.5-14.5) % Plt Count 329 (130-400) K/uL MPV 10.8 H (7.4-10.4) fL Immature Gran % (Auto) 0.3 % Neut % (Auto) 72.2 % Lymph % (Auto) 14.0 % Wells % (Auto) 10.7 % Eos % (Auto) 2.4 % Baso % (Auto) 0.4 % Immature Gran # (Auto) 0.03 H (0.00-0.02) K/uL Neut # (Auto) 7.45 H (1.4-6.5) K/uL Lymph # (Auto) 1.44 (1.2-3.4) K/uL Wells # (Auto) 1.10 H (0.11-0.59) K/uL Eos # (Auto) 0.25 (0-0.5) K/uL Baso # (Auto) 0.04 (0-0.2) K/uL PT (9.0-12.0) Seconds INR (0.9-1.1) APTT (21.0-31.0) Seconds PTT Ratio Sodium 141 (136-145) mmol/L Potassium 3.4 L (3.5-5.1) mmol/L Chloride 107 (98-107) mmol/L Carbon Dioxide 30 (21-32) mmol/L Anion Gap 4.0 (3-11) BUN 26 H (7-18) mg/dl Creatinine 1.02 (0.6-1.4) mg/dl Est Cr Clr Drug Dosing 79.2 ml/min Est GFR ( Amer) 84.1 Est GFR (Non-Af Amer) 72.6 BUN/Creatinine Ratio 25.3 H (10-20) Glucose 119 H (70-99) mg/dl POC Glucose 85 (70-99) POC Lactic Acid Joni (0.90-1.70) mmol/L Calcium 8.5 (8.5-10.1) mg/dl Total Bilirubin (0.2-1) mg/dl AST (15-37) U/L ALT (12-78) U/L Alkaline Phosphatase (45-117) U/L Total Creatine Kinase (39-308) U/L CK-MB (CK-2) (0.5-3.6) ng/ml CK/CKMB % Calc (0-3.0) Troponin I (0-0.045) ng/ml NT-Pro-B Natriuret Pep (0-900) pg/ml Total Protein (6.4-8.2) gm/dl Albumin (3.4-5.0) gm/dl Globulin (2.5-4.0) gm/dl Albumin/Globulin Ratio (0.9-2) Urine Color Urine Appearance (Clear) Urine pH (4.5-7.5) Ur Specific Brandon (1.000-1.030) Urine Protein (Negative) Urine Glucose (UA) (Negative) Urine Ketones (Negative) Urine Blood (Negative) Urine Nitrite (Negative) Urine Bilirubin (Negative) Urine Urobilinogen (Negative) Ur Leukocyte Esterase (Negative) Urine WBC (Auto) (0-5) /hpf Urine RBC (Auto) (0-4) /hpf U Hyaline Cast (Auto) (0-5) /lpf U Epithel Cells (Auto) (0-5) /lpf Urine Bacteria (Auto) (Negative) 11/13/18 11/13/18 11/13/18 Range/Units 07:31 11:32 16:23 WBC (4.8-10.8) K/uL RBC (4.7-6.1) M/uL Hgb (14.0-18.0) g/dL Hct (42-52) % MCV (80-100) fL MCH (25-34) pg MCHC (32-36) g/dL RDW Std Deviation (36.4-46.3) fL RDW Coeff of Da (11.5-14.5) % Plt Count (130-400) K/uL MPV (7.4-10.4) fL Immature Gran % (Auto) % Neut % (Auto) % Lymph % (Auto) % Wells % (Auto) % Eos % (Auto) % Baso % (Auto) % Immature Gran # (Auto) (0.00-0.02) K/uL Neut # (Auto) (1.4-6.5) K/uL Lymph # (Auto) (1.2-3.4) K/uL Wells # (Auto) (0.11-0.59) K/uL Eos # (Auto) (0-0.5) K/uL Baso # (Auto) (0-0.2) K/uL PT (9.0-12.0) Seconds INR (0.9-1.1) APTT (21.0-31.0) Seconds PTT Ratio Sodium (136-145) mmol/L Potassium (3.5-5.1) mmol/L Chloride (98-107) mmol/L Carbon Dioxide (21-32) mmol/L Anion Gap (3-11) BUN (7-18) mg/dl Creatinine (0.6-1.4) mg/dl Est Cr Clr Drug Dosing ml/min Est GFR ( Amer) Est GFR (Non-Af Amer) BUN/Creatinine Ratio (10-20) Glucose (70-99) mg/dl POC Glucose 116 H 175 H 149 H (70-99) POC Lactic Acid Joni (0.90-1.70) mmol/L Calcium (8.5-10.1) mg/dl Total Bilirubin (0.2-1) mg/dl AST (15-37) U/L ALT (12-78) U/L Alkaline Phosphatase (45-117) U/L Total Creatine Kinase (39-308) U/L CK-MB (CK-2) (0.5-3.6) ng/ml CK/CKMB % Calc (0-3.0) Troponin I (0-0.045) ng/ml NT-Pro-B Natriuret Pep (0-900) pg/ml Total Protein (6.4-8.2) gm/dl Albumin (3.4-5.0) gm/dl Globulin (2.5-4.0) gm/dl Albumin/Globulin Ratio (0.9-2) Urine Color Urine Appearance (Clear) Urine pH (4.5-7.5) Ur Specific Brandon (1.000-1.030) Urine Protein (Negative) Urine Glucose (UA) (Negative) Urine Ketones (Negative) Urine Blood (Negative) Urine Nitrite (Negative) Urine Bilirubin (Negative) Urine Urobilinogen (Negative) Ur Leukocyte Esterase (Negative) Urine WBC (Auto) (0-5) /hpf Urine RBC (Auto) (0-4) /hpf U Hyaline Cast (Auto) (0-5) /lpf U Epithel Cells (Auto) (0-5) /lpf Urine Bacteria (Auto) (Negative) 11/13/18 11/14/18 11/14/18 Range/Units 20:08 06:03 06:03 WBC 8.06 (4.8-10.8) K/uL RBC 5.18 (4.7-6.1) M/uL Hgb 13.2 L (14.0-18.0) g/dL Hct 42.0 (42-52) % MCV 81.1 (80-100) fL MCH 25.5 (25-34) pg MCHC 31.4 L (32-36) g/dL RDW Std Deviation 52.3 H (36.4-46.3) fL RDW Coeff of Da 17.9 H (11.5-14.5) % Plt Count 308 (130-400) K/uL MPV 11.2 H (7.4-10.4) fL Immature Gran % (Auto) 0.1 % Neut % (Auto) 64.9 % Lymph % (Auto) 16.6 % Wells % (Auto) 12.2 % Eos % (Auto) 6.0 % Baso % (Auto) 0.2 % Immature Gran # (Auto) 0.01 (0.00-0.02) K/uL Neut # (Auto) 5.23 (1.4-6.5) K/uL Lymph # (Auto) 1.34 (1.2-3.4) K/uL Wells # (Auto) 0.98 H (0.11-0.59) K/uL Eos # (Auto) 0.48 (0-0.5) K/uL Baso # (Auto) 0.02 (0-0.2) K/uL PT (9.0-12.0) Seconds INR (0.9-1.1) APTT (21.0-31.0) Seconds PTT Ratio Sodium 143 (136-145) mmol/L Potassium 3.7 (3.5-5.1) mmol/L Chloride 110 H (98-107) mmol/L Carbon Dioxide 29 (21-32) mmol/L Anion Gap 4.0 (3-11) BUN 29 H (7-18) mg/dl Creatinine 1.12 (0.6-1.4) mg/dl Est Cr Clr Drug Dosing 70.1 ml/min Est GFR ( Amer) 75.1 Est GFR (Non-Af Amer) 64.8 BUN/Creatinine Ratio 25.5 H (10-20) Glucose 147 H (70-99) mg/dl POC Glucose 186 H (70-99) POC Lactic Acid Joni (0.90-1.70) mmol/L Calcium 8.6 (8.5-10.1) mg/dl Total Bilirubin (0.2-1) mg/dl AST (15-37) U/L ALT (12-78) U/L Alkaline Phosphatase (45-117) U/L Total Creatine Kinase (39-308) U/L CK-MB (CK-2) (0.5-3.6) ng/ml CK/CKMB % Calc (0-3.0) Troponin I (0-0.045) ng/ml NT-Pro-B Natriuret Pep (0-900) pg/ml Total Protein (6.4-8.2) gm/dl Albumin (3.4-5.0) gm/dl Globulin (2.5-4.0) gm/dl Albumin/Globulin Ratio (0.9-2) Urine Color Urine Appearance (Clear) Urine pH (4.5-7.5) Ur Specific Brandon (1.000-1.030) Urine Protein (Negative) Urine Glucose (UA) (Negative) Urine Ketones (Negative) Urine Blood (Negative) Urine Nitrite (Negative) Urine Bilirubin (Negative) Urine Urobilinogen (Negative) Ur Leukocyte Esterase (Negative) Urine WBC (Auto) (0-5) /hpf Urine RBC (Auto) (0-4) /hpf U Hyaline Cast (Auto) (0-5) /lpf U Epithel Cells (Auto) (0-5) /lpf Urine Bacteria (Auto) (Negative) 11/14/18 Range/Units 07:31 WBC (4.8-10.8) K/uL RBC (4.7-6.1) M/uL Hgb (14.0-18.0) g/dL Hct (42-52) % MCV (80-100) fL MCH (25-34) pg MCHC (32-36) g/dL RDW Std Deviation (36.4-46.3) fL RDW Coeff of Da (11.5-14.5) % Plt Count (130-400) K/uL MPV (7.4-10.4) fL Immature Gran % (Auto) % Neut % (Auto) % Lymph % (Auto) % Wells % (Auto) % Eos % (Auto) % Baso % (Auto) % Immature Gran # (Auto) (0.00-0.02) K/uL Neut # (Auto) (1.4-6.5) K/uL Lymph # (Auto) (1.2-3.4) K/uL Wells # (Auto) (0.11-0.59) K/uL Eos # (Auto) (0-0.5) K/uL Baso # (Auto) (0-0.2) K/uL PT (9.0-12.0) Seconds INR (0.9-1.1) APTT (21.0-31.0) Seconds PTT Ratio Sodium (136-145) mmol/L Potassium (3.5-5.1) mmol/L Chloride (98-107) mmol/L Carbon Dioxide (21-32) mmol/L Anion Gap (3-11) BUN (7-18) mg/dl Creatinine (0.6-1.4) mg/dl Est Cr Clr Drug Dosing ml/min Est GFR ( Amer) Est GFR (Non-Af Amer) BUN/Creatinine Ratio (10-20) Glucose (70-99) mg/dl POC Glucose 147 H (70-99) POC Lactic Acid Joni (0.90-1.70) mmol/L Calcium (8.5-10.1) mg/dl Total Bilirubin (0.2-1) mg/dl AST (15-37) U/L ALT (12-78) U/L Alkaline Phosphatase (45-117) U/L Total Creatine Kinase (39-308) U/L CK-MB (CK-2) (0.5-3.6) ng/ml CK/CKMB % Calc (0-3.0) Troponin I (0-0.045) ng/ml NT-Pro-B Natriuret Pep (0-900) pg/ml Total Protein (6.4-8.2) gm/dl Albumin (3.4-5.0) gm/dl Globulin (2.5-4.0) gm/dl Albumin/Globulin Ratio (0.9-2) Urine Color Urine Appearance (Clear) Urine pH (4.5-7.5) Ur Specific Brandon (1.000-1.030) Urine Protein (Negative) Urine Glucose (UA) (Negative) Urine Ketones (Negative) Urine Blood (Negative) Urine Nitrite (Negative) Urine Bilirubin (Negative) Urine Urobilinogen (Negative) Ur Leukocyte Esterase (Negative) Urine WBC (Auto) (0-5) /hpf Urine RBC (Auto) (0-4) /hpf U Hyaline Cast (Auto) (0-5) /lpf U Epithel Cells (Auto) (0-5) /lpf Urine Bacteria (Auto) (Negative) Imaging Data Radiologist's Impression: Radiology results as stated below per my review and the radiologist's interpretation: XR chest 1V portable CLINICAL HISTORY: Sepsis dyspnea COMPARISON STUDY: 10/26/2018 FINDINGS: Moderate cardiomegaly. Small right pleural effusion. Prominent pulmon jorge vasculature. IMPRESSION: Findings of congestive failure versus pulmonary edema slightly improved from the prior exam. The above report was generated using voice recognition software. It may contain grammatical, syntax or spelling errors. Electronically signed by: Jose Smith M.D. 11/12/2018 2:29 PM ECG Data Attestation: I personally reviewed and interpreted this ECG as follows: Indication: weakness Rate (beats per minute): 71 Rhythm: sinus tachycardia Findings: + complete heart block and + paced rhythm Blood Pressure Blood Pressure Findings: Elevated blood pressure Blood Pressure Disposition: further management by hospitalist ANNAMARIE Narrative This is a 73-year-old male who presents emergency department complaining of altered mental status. The patient also has large leg swelling. The patient's family relates that he has a history of sepsis and this is what he is normally like before he gets sepsis. His white blood cell count is 10. His chest x-ray is concerning for congestive heart failure therefore the patient was given Lasix. I did discuss the case with the hospitalist service who agreed to admit the patient. Patient was in agreement with the treatment plan. Impression & Plan Altered mental status, CHF (congestive heart failure) Discharge Plan Visit Data *Final* Discharge Date/Time: 11/12/18 19:50 Chief Complaint: Weakness Stated Complaint: CONFUSION,WEAK,? SEPSIS,BILAT EDEMA,DIARRHEA ED Provider: Lito Velez Discharge Problem: Altered mental status, CHF (congestive heart failure) Patient Disposition: Admitted As Inpatient Discharge Instructions Interventions: ED Discharge Assessment Last Done: 11/12/18 19:50 The scribe's documentation has been prepared under my direction and personally reviewed by me in its entirety. I confirm that the note above accurately reflects all work, treatment, procedures, and medical decision making performed by me.
--- NOTE | 2018-11-15 07:23 | XRay Report ---
XR chest 1V portable HISTORY: 73 years-old Male pulmonary edema, CXR in AM acute shortness of breath COMPARISON: Chest radiograph 11/14/2018 TECHNIQUE: Portable AP view of the chest FINDINGS: Cardiac silhouette is mildly enlarged. Calcification the thoracic arch. Single lead left subclavian p acer. Pulmonary edema. Unchanged without pneumothorax. Small pleural effusions with bibasilar opaciti es persist. IMPRESSION: Cardiomegaly with unchanged pulmonary edema, small pleural effusions with bibasilar opaci ties. The above report was generated using voice recognition software. It may contain grammatical, syntax o r spelling errors. Electronically signed by: Michel Basurto M.D. 11/15/2018 7:22 AM
[2018-11-15] MEDS: METOPROLOL SUCC 50MG EXT REL TAB PO SCH ×2 (07:45→20:57)
[2018-11-15] MEDS: dilTIAZem HCL 240 MG CAPCR PO SCH (07:46)
[2018-11-15] MEDS: LISINOPRIL 40 MG TAB PO SCH (07:46)
[2018-11-15] MEDS: DORZOLAMIDE HCL 2% OPH SOLN 10 ML BTL OP SCH ×3 (09:00→20:56)
[2018-11-15] MEDS: MULTIVITAMIN TAB PO SCH (09:00)
[2018-11-15] MEDS: FUROSEMIDE 40 MG in SYRINGE 0 ML IV SCH (09:01)
[2018-11-15] MEDS: BACLOFEN 10 MG TAB PO SCH ×4 (09:01→20:57)
[2018-11-15] MEDS: BRIMONIDINE TARTRATE 0.2% 5ML OP SCH ×2 (09:01→20:54)
--- NOTE | 2018-11-15 10:07 | Family Medicine Progress Note ---
Date of Service November 15, 2018 Assessment & Plan (1) CHF (congestive heart failure): Guanakito is a 73-year-old male with a history of atrial fibrillation with cardiac pacer, diet-controlled diabetes mellitus, hypertension, spastic paralysis, CHF, and chronic indwelling Pedraza with a recent hospital admission from who presents with 2 to 3 days of weakness and difficulty transferring from wheelchair to toilet. Acute on chronic congestive heart failure Lower leg edema continues to be improved today. His weight is down from 104kg to 96kg, no signs of hypotension. His creatinine and potassium continue to be stable. Repeat chest x-ray this morning shows no change, pulmonary edema with some bilat effusions. - Continue lasix 40mg IV daily with goal of reaching dry weight as determined by clinical signs (any induction of lightheadedness/dizziness), tachycardia, or a bump in Cr. Suspect we are closing in on his normal weight, and he feels greatly improved. - PT recommends home discharge with home health PT services through [place]. Possible discharge tomorrow if he is clinically well and at dry weight. Weakness (improved) - Weakness likely 2/2 AoC CHF with severe fluid overload as noted above, now resolving. Family had expressed concern that he may be getting a UTI. His UA did not show any bacteria or leukocyte esterase. He does not have a leukocytosis. Suspect his weakness is more likely due to acute on chronic congestive heart failure and fluid overload with an additional element of recent hospitalization+deconditioning. His UC was negative. Given his recent admission, chronic UTIs, and medical frailty was empirically covered with Zosyn/Dapto narrowed to rocephin. UC is negative. CBC, BMP daily LE Cellulitis (improved) - His lower legs bilaterally were mildly erythematous with some demarkation on admission. Although he did not have a UTI as noted above, rocephin was continued to cover for cellulitis. - Narrow to Keflex PO tomorrow to complete 5 days of treatment. 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 Given his already high regimen and low heart rate there is not a lot of room to increase his antihypertensive regimen, will continue with diuresis at this time. Continue diltiazem ER 240 mg daily - Furosemide as above Continue lisinopril 40 mg daily Metoprolol succinate 50 mg twice daily Depression Continue sertraline 50 mg p.o. daily Continue zolpidem 10 mg p.o. 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 Mishra. Agree with history, exam findings, assessment and plan of care as outlined. In brief, Mr. Tran is a 73 year old male with hx of afib (pacer), DM, HTN, CHF, spastic paralysis and chronic indwelling Pedraza admitted with generalized weakness. 1. Acute on chronic CHF (diastolic). Diuresing with IV Lasix 40mg. Follow I/Os (-2.5L) 2. Weakness. Chronic venous stasis vs early cellulitis. On ceftriaxone. 3. HTN. Elevated BPs. Diltiazem ER 240mg, Lisinopril 40mg, metoprolol Dispo: pending clinical improvement, moving towards dry weight. Subjective Mr. Tran reports he feels well today. He did not sleep as well as he did prior night, but overall feels okay and greatly improved compared to admission. Feels that his strength is much better, and he is been able to transfer from the bed to his wheelchair similarly to when he is at home with normal strength. He has had a slight cough, nonproductive. No fevers, chills, sweats. 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 His legs are not painful to him today, he feels that the sensation in them is normal. Review of Systems Review of Systems: Constitutional: Denies fatigue, weakness today. 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 No eye pain. ENT: Denies sore throat, cough Cardiovascular: Denies chest pain, chest pressure, palpitations. Feels his legs are improved, feel normal to him today. Respiratory: Denies shortness of breath, sputum production, difficulty breathing. Endorses cough. Gastrointestinal: Denies abdominal pain, nausea, vomiting, constipation. Denies diarrhea today. Genitourinary: Chronic pedraza, endorses polyuria less than yesterdya without pain. Musculoskeletal: Denies weakness today. No new pain. Integumentary: Denies new rash, lesions, bruising. Neurological: Denies headache, numbness, tingling, lightheadedness/dizziness. Endorses poor coordination 2/2 blindness Physical Exam Physical Exam: General: A&Ox3. NAD. Cooperative. Skin: Skin warm and dry. Bilateral leg edema trace today, continues to be improved. Approximately 5 cm reducible umbilical hernia, non-incarcerated. Mild bilateral LE erythema. HEENT: Atraumatic, normocephalic. Pulm: Bibasilar crackles. Otherwise CTAB A&P. -wheezes, -rhonchi. Symmetrical chest rise. No increased work of breathing. No respiratory distress. Egophony with greatly reduced sound penetration in RLL. Cardiac: RRR, -mrg. Radial pulses intact and symmetrical. Results & Data Vital Signs (Past 12 Hours) Vital Signs Temp Pulse Resp BP BP Pulse Ox 11/14/18 23:20 36.4 C L 85 20 169/91 H 94 11/14/18 19:00 36.5 C 75 18 150/89 H 92 Resident Activity Tracking Resident Involvement: Resident Care Provided Care Provided: Adult Hospital Medicine
[2018-11-15] MEDS: APIXABAN 5 MG TABLET PO SCH ×2 (10:42→20:57)
[2018-11-15] MEDS: cefTRIAXone SODIUM 2,000 MG in DEXTROSE 5% 50 ML IV SCH (20:57)
[2018-11-15] MEDS: SERTRALINE HCL 50 MG TABLET PO SCH (20:57)
[2018-11-15] MEDS: ASPIRIN 81 MG ECTAB PO SCH (20:57)
[2018-11-15] MEDS: ZOLPIDEM TARTRATE 10 MG TAB PO PRN (20:57)
[2018-11-15] MEDS: LATANOPROST 0.005% OP SOLN 2.5 ML BTL OPB SCH (20:58)
[2018-11-16 07:05] LABS: Basophils # (auto) 0.03 K/uL (0-0.2); Basophils % (auto) 0.3 %; Eosinophils # (auto) 0.66 K/uL (0-0.5); Eosinophils % (auto) 6.9 %; Hematocrit (blood only) 39.9 % (42-52); Hemoglobin 13.3 g/dL (14.0-18.0); Immature Granulocytes # (auto) 0.02 K/uL (0.00-0.02); Immature Granulocytes % (auto) 0.2 %; Lymphocytes # (auto) 1.61 K/uL (1.2-3.4); Lymphocytes % (auto) 16.7 %; Mean Corpuscular Hgb Conc 33.3 g/dL (32-36); Mean Corpuscular Volume 79.2 fL (80-100); Mean Platelet Volume 10.6 fL (7.4-10.4); Monocytes # (auto) 0.99 K/uL (0.11-0.59); Monocytes % (auto) 10.3 %; Neutrophils # (auto) 6.31 K/uL (1.4-6.5); Neutrophils % (auto) 65.6 %; Platelet Count 313 K/uL (130-400); RDW Coefficient of Variation 17.6 % (11.5-14.5); RDW Standard Deviation 50.5 fL (36.4-46.3); Red Blood Count 5.04 M/uL (4.7-6.1); White Blood Count 9.62 K/uL (4.8-10.8)
[2018-11-16 07:39] LABS: Calcium 9.1 mg/dl (8.5-10.1); Creatinine Clr Calc Pharmacy 84.3 ml/min; Est GFR (African American) 95.3; Est GFR (Non-African American) 82.2; Potassium 3.5 mmol/L (3.5-5.1)
--- NOTE | 2018-11-16 08:13 | Family Medicine Progress Note ---
Date of Service November 16, 2018 Assessment & Plan (1) CHF (congestive heart failure): Guanakito is a 73-year-old male with a history of atrial fibrillation with cardiac pacer, diet-controlled diabetes mellitus, hypertension, spastic paralysis, CHF, and chronic indwelling Coon with a recent hospital admission from who presents with 2 to 3 days of weakness and difficulty transferring from wheelchair to toilet. Acute on chronic congestive heart failure Lower leg edema continues to be improved today. His weight is down from 104kg to 96kg, no signs of hypotension. His creatinine and potassium continue to be stable. Repeat chest x-ray on 10/15 shows no change, pulmonary edema with some bilat effusions. - Continue lasix 40mg IV daily with goal of reaching dry weight as determined by clinical signs (any induction of lightheadedness/dizziness), tachycardia, or a bump in Cr. Suspect we are closing in on his normal weight, and he feels greatly improved. -Given increased p.o. fluid intake yesterday and positive fluid balance of 800 mL, will give additional 20 mg IV dose this afternoon at 2 PM for more aggressive diuresis - PT recommends home discharge with home health PT services through [place]. Possible discharge tomorrow if he is clinically well and at dry weight. Weakness (improved) - Weakness likely 2/2 AoC CHF with severe fluid overload as noted above, now resolving. Family had expressed concern that he may be getting a UTI. His UA did not show any bacteria or leukocyte esterase. He does not have a leukocytosis. Suspect his weakness is more likely due to acute on chronic congestive heart failure and fluid overload with an additional element of recent hospitali zation+deconditioning. His UC was negative. Given his recent admission, chronic UTIs, and medical frailty was empirically covered with Zosyn/Dapto narrowed to rocephin. UC is negative. switched to po keflex CBC, BMP daily LE Cellulitis (improved) - His lower legs bilaterally were mildly erythematous with some demarkation on admission. Although he did not have a UTI as noted above, rocephin was continued to cover for cellulitis. - tx to Keflex PO today to complete 5 days of treatment. 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 Given his already high regimen and low heart rate there is not a lot of room to increase his antihypertensive regimen, will continue with diuresis at this time. Continue diltiazem ER 240 mg daily - Furosemide as above Continue lisinopril 40 mg daily Metoprolol succinate 50 mg twice daily -Patient reports better blood pressure control while at home reporting systolics in the 110s to 140s, could consider increasing metoprolol to 100 mg twice daily Depression Continue sertraline 50 mg p.o. daily Continue zolpidem 10 mg p.o. nightly as needed for sleep Atrial fibrillation status post cardiac pacer placement Complete heart block noted on admitting EKG Ventricular paced rhythm Admit to med/surg telemetry Continue apixaban 5 mg twice daily DVT prophylaxis: Apixaban 5 mg twice daily as above Disposition: Likely for DC tomorrow pending fluid status and physical exam (2) Weakness: see above (3) DVT prophylaxis: Supervising Physician Co-Signing Physician Notes Patient seen and examined with Dr. Salcedo. Agree with history, exam findings, assessment and plan of care as outlined. In brief, Mr. Tran is a 73 year old male with hx of afib (pacer), DM, HTN, CHF, spastic paralysis and chronic indwelling Coon admitted with generalized weakness. Overall, continues to improve. Denies dyspnea or chest pain. On exam, does have decreased breath sounds in the right base, but improved aeration on the left base compared to yesterday. 1. Acute on chronic CHF (diastolic). Diuresing with IV Lasix 40mg, will given an extra 20mg IV lasix this afternoon. Fluid restrict today to 1.5L. Kidney function holding up well. Follow I/Os, daily weights (+800mL yesterday; 95.3kg). 2. Weakness. Chronic venous stasis vs early cellulitis. Transition to oral keflex. 3. HTN. Elevated BPs. Diltiazem ER 240mg, Lisinopril 40mg, metoprolol 50mg. Dispo: pending clinical improvement, moving towards dry weight. Subjective Patient sitting up in bed watching TV this morning in no acute distress. Reports doing well overnight, no acute concerns or complaints. Patient had a fairly large amount of fluid intake yesterday resulting in an 800 mL positive fluid balance, urine output has been great and it 1850 mL over the last 24 hours. Weight continues to downtrend 104 kg on admission 96 kg yesterday and 95.3 kg today. Patient is tolerating Lasix well with adverse events. Patient is tolerating his diet, permanent indwelling Coon producing urine, stooling, sleeping. No further concerns at present all questions answered. Physical Exam Physical Exam: General: A&Ox3. NAD. Cooperative. Skin: Skin warm and dry. Bilateral leg edema trace today, continues to be improved. Approximately 5 cm reducible umbilical hernia, non-incarcerated. Mild bilateral LE erythema. HEENT: Atraumatic, normocephalic. Pulm: Bibasilar crackles. Otherwise CTAB A&P. -wheezes, -rhonchi. Symmetrical chest rise. No increased work of breathing. No respiratory distress. Cardiac: RRR, -mrg. Radial pulses intact and symmetrica Results & Data Vital Signs (Past 12 Hours) Vital Signs Temp Pulse Resp BP BP Pulse Ox 11/16/18 07:36 36.6 C 71 18 176/92 H 178/83 H 94 11/16/18 04:02 36.7 C 74 18 165/89 H 91 11/15/18 22:58 36.6 C 73 18 163/89 H 91 Laboratory Results 11/16/18 11/16/18 Range/Units 06:23 06:23 WBC 9.62 (4.8-10.8) K/uL RBC 5.04 (4.7-6.1) M/uL Hgb 13.3 L (14.0-18.0) g/dL Hct 39.9 L (42-52) % MCV 79.2 L (80-100) fL MCH 26.4 (25-34) pg MCHC 33.3 (32-36) g/dL RDW Std Deviation 50.5 H (36.4-46.3) fL RDW Coeff of Da 17.6 H (11.5-14.5) % Plt Count 313 (130-400) K/uL MPV 10.6 H (7.4-10.4) fL Immature Gran % (Auto) 0.2 % Neut % (Auto) 65.6 % Lymph % (Auto) 16.7 % [place] % (Auto) 10.3 % Eos % (Auto) 6.9 % Baso % (Auto) 0.3 % Immature Gran # (Auto) 0.02 (0.00-0.02) K/uL Neut # (Auto) 6.31 (1.4-6.5) K/uL Lymph # (Auto) 1.61 (1.2-3.4) K/uL Treg[place] # (Auto) 0.99 H (0.11-0.59) K/uL Eos # (Auto) 0.66 H (0-0.5) K/uL Baso # (Auto) 0.03 (0-0.2) K/uL Sodium 144 (136-145) mmol/L Potassium 3.5 (3.5-5.1) mmol/L Chloride 108 H (98-107) mmol/L Carbon Dioxide 30 (21-32) mmol/L Anion Gap 7.0 (3-11) BUN 23 H (7-18) mg/dl Creatinine 0.92 (0.6-1.4) mg/dl Est Cr Clr Drug Dosing 84.3 ml/min Est GFR ( Amer) 95.3 Est GFR (Non-Af Amer) 82.2 BUN/Creatinine Ratio 25.0 H (10-20) Glucose 161 H (70-99) mg/dl Calcium 9.1 (8.5-10.1) mg/dl Medications Administered Current Inpatient Medications Acetaminophen (Tylenol) 650 mg PO Q4H PRN PRN Reason: Pain Stop: 12/13/18 04:13 Last Admin: 11/13/18 15:52 Dose: 650 mg Documented by: Apixaban (Eliquis) 5 mg PO BID [facility] Stop: 12/12/18 20:59 Last Admin: 11/15/18 20:57 Dose: 5 mg Documented by: Aspirin (Ecotrin Ectab) 81 mg PO HS MOE Stop: 12/12/18 20:59 Last Admin: 11/15/18 20:57 Dose: 81 mg Documented by: Baclofen (Lioresal) 10 mg PO QID MOE Stop: 12/12/18 20:59 Last Admin: 11/15/18 20:57 Dose: 10 mg Documented by: Brimonidine Tartrate (Alphagan 0.2%) 1 drops OP BID [facility] Stop: 12/12/18 20:59 Last Admin: 11/15/18 20:54 Dose: 1 drops Documented by: Diltiazem HCl (Cardizem Cd) 240 mg PO DAILY MOE Stop: 12/13/18 08:59 Last Admin: 11/15/18 07:46 Dose: 240 mg Documented by: Dorzolamide HCl (Trusopt 2% Oph) 1 drops OP TID MOE Stop: 12/12/18 20:59 Last Admin: 11/15/18 20:56 Dose: 1 drops Documented by: Ceftriaxone Sodium 2,000 mg/ (Dextrose) 70 mls @ 140 mls/hr IV Q24H MOE; Protocol Stop: 11/17/18 20:59 Last Infusion: 11/15/18 21:49 Dose: Infused Documented by: Furosemide 40 mg/ Syringe 4 mls @ 4 mls/min IV DAILY [facility] Stop: 12/13/18 08:59 Last Admin: 11/15/18 09:01 Dose: 4 mls/min Documented by: Latanoprost (Xalatan Oph) 1 drops OPB HS [facility] Stop: 12/12/18 20:59 Last Admin: 11/15/18 20:58 Dose: 1 drops Documented by: Lisinopril (Zestril) 40 mg PO DAILY MOE Stop: 12/12/18 20:38 Last Admin: 11/15/18 07:46 Dose: 40 mg Documented by: Methenamine Hippurate (Urex) 1 gm PO QPM MOE Stop: 11/17/18 20:59 Last Admin: 11/13/18 20:30 Dose: 1 gm Documented by: Metoprolol Succinate (Toprol Xl) 50 mg PO BID MOE Stop: 12/12/18 20:59 Last Admin: 11/15/18 20:57 Dose: 50 mg Documented by: Multivitamins (Multivitamin Tab) 1 tab PO DAILY MOE Stop: 12/13/18 08:59 Last Admin: 11/15/18 09:00 Dose: 1 tab Documented by: Sertraline HCl (Zoloft) 50 mg PO HS [facility] Stop: 12/12/18 20:59 Last Admin: 11/15/18 20:57 Dose: 50 mg Documented by: Zolpidem Tartrate (Ambien) 10 mg PO HS PRN PRN Reason: sleep Stop: 12/12/18 20:38 Last Admin: 11/15/18 20:57 Dose: 10 mg Documented by: Resident Activity Tracking Resident Involvement: Resident Care Provided Care Provided: Adult Hospital Medicine
[2018-11-16] MEDS: DORZOLAMIDE HCL 2% OPH SOLN 10 ML BTL OP SCH ×3 (09:37→20:08)
[2018-11-16] MEDS: dilTIAZem HCL 240 MG CAPCR PO SCH (09:38)
[2018-11-16] MEDS: APIXABAN 5 MG TABLET PO SCH ×2 (09:39→20:08)
[2018-11-16] MEDS: BACLOFEN 10 MG TAB PO SCH ×4 (09:39→20:08)
[2018-11-16] MEDS: LISINOPRIL 40 MG TAB PO SCH (09:40)
[2018-11-16] MEDS: MULTIVITAMIN TAB PO SCH (09:40)
[2018-11-16] MEDS: METOPROLOL SUCC 50MG EXT REL TAB PO SCH ×2 (09:40→20:08)
[2018-11-16] MEDS: BRIMONIDINE TARTRATE 0.2% 5ML OP SCH ×2 (09:41→20:06)
[2018-11-16] MEDS: FUROSEMIDE 40 MG in SYRINGE 0 ML IV SCH (09:41)
[2018-11-16] MEDS: cephALEXin 500 MG CAP PO SCH ×4 (10:51→20:08)
[2018-11-16] MEDS ORDERED: FUROSEMIDE 20 MG in SYRINGE 0 ML IV ONE (14:00)
[2018-11-16] MEDS ORDERED: PHARMACY GLYCEMIC MGMT CONSULT PRN (19:03)
[2018-11-16] MEDS ORDERED: DEXTROSE 50% 50 ML SYRINGE IV PRN (19:15)
[2018-11-16] MEDS ORDERED: GLUCOSE 10 TABS/TUBE PO PRN (19:15)
[2018-11-16] MEDS ORDERED: GLUCAGON FOR INJ 1 MG VIAL IM PRN (19:15)
[2018-11-16] MEDS ORDERED: CARBOHYDRATES FOR HYPOGLYCEMIA PO PRN (19:15)
[2018-11-16] MEDS ORDERED: GLUCOSE 40% GEL 15 GM TUBE PO PRN (19:15)
[2018-11-16] MEDS: ASPIRIN 81 MG ECTAB PO SCH (20:08)
[2018-11-16] MEDS: LATANOPROST 0.005% OP SOLN 2.5 ML BTL OPB SCH (20:09)
[2018-11-16] MEDS: SERTRALINE HCL 50 MG TABLET PO SCH (20:09)
[2018-11-16] MEDS: INSULIN ASPART 100 UNITS/ML 3 ML PEN SC SCH (20:52)
[2018-11-16] MEDS ORDERED: INSULIN GLARGINE SOLOSTAR 100 UNITS/ML 3 ML PEN SC ONE (21:00)
--- NOTE | 2018-11-16 21:03 | Pharmacy Report ---
Glycemic Control Consultation - Date of Service November 16, 2018 - Scope Scope: Glycemic Pharmacist consulted by Dr Salcedo on 11-16 for glycemic control and to write orders per [facility] inpatient glycemic control protocol - Objective Weight: 95.3 kg Accuchecks BSG (last 24hrs): 11/16/18 11/16/18 11/16/18 06:23 18:52 18:54 Glucose 161 H POC Glucose 302 H* 307 H* 11/16/18 20:20 Glucose POC Glucose 282 H Laboratory Data (last 24hrs): 11/16/18 06:23 Potassium 3.5 Carbon Dioxide 30 Anion Gap 7.0 Creatinine 0.92 Est Cr Clr Drug Dosing 84.3 - Recent Pertinent Medications Outpatient Anti-diabetic Regimen: * Lantus 10 units BID, metformin - unknown dosing will need to follow up * A1c = 7.9 % [3--19] The patient is currently receiving: * Basal insulin: none * Correctional Insulin: none Risk Factors for Insulin Resistance: * Diet: T2DM - Assessment & Plan Assessment & Plan: ASSESSMENT: * 73 year old admitted for weakness and cellulitis. PMHx significant for CHF, depression,htn * Pharmacy consulted for BSG of 307 mg/dL - BSGs likely related to infection, however no insulin ordered since admission. After talking with the nurse, patient does report taking Lantus and metformin at home, however it was not listed on medication list on admission * Verified he takes Lantus 10 BID and unsure of metformin dosing - will need to clarify * BSG of 307 mg/dL was right after patient ate dinner - nurse not sure how many carbs consumed; recheck at 2100 at 282 mg/dL; will add Lantus/novolog at this time PLAN FOR INPATIENT GLYCEMIC CONTROL: * Holding outpatient oral diabetes medications * Basal insulin * Lantus 15 x 1 * Bolus insulin * NovoLog per scale ACHS or Q6hrs while NPO * Goal Range: Low 120 mg/dL - High 160 mg/dL * Correction Factor: 25 mg/dL/unit * Nutritional / Prandial insulin per carb ratio of 1 unit per 8 grams CHO consumed * Please note that the plan above was derived based on current level of insulin resistance and hospital stress. These recommendations are appropriate for inpatient admission only. Plan of care upon discharge will need to be reassessed to avoid potential outpatient hypo/hyperglycemia. Thank you.
[2018-11-17] MEDS: INSULIN ASPART 100 UNITS/ML 3 ML PEN SC SCH ×4 (00:42→12:14)
--- NOTE | 2018-11-17 07:10 | Discharge Summary ---
Date of Service November 17, 2018 Admission HPI Per Admitting Provider Guanakito is a 73-year-old male with past medical history of atrial fibrillation status post pacer placement, diabetes mellitus, hypertension, peripheral vascular disease, glaucoma, congestive heart failure, and spastic paralysis chronic for 30 years who presents with increased fatigue and weakness for 3 days. He was recently admitted to [facility] from for UTI. He reports he felt completely back to his normal baseline for a couple of days, but 2 to 3 days ago he noticed he was feeling very tired and weak and was having difficulty transferring from his wheelchair to the toilet. He denies chest pain, shortness of breath, fever, chills, sweats. He notes he has had diarrhea for the last 4 days which was loose and occurring twice per day, but appeared to be resolving yesterday. He has not had any pain with urination, although he notes he has a chronic indwelling Coon and has not always had pain when he has been told he has a UTI in the past. He has not had any abdominal pain. He does not know any other symptoms. He denies any pain. Social: He lives alone in [place]. He has some family in the area. Reports he is wheelchair-bound but is normally able to get around okay at home [facility]. Prior [id number] smoking history, no tobacco use in the last 45 years. No recent alcohol or substance use. No known medication allergies No known food allergies Family history on file Admission Exam Per Admitting Provider Constitutional: WD/WN, vitals as above Eyes: No pupillary response to light in R eye. Blind in R eye. Decreased visual acuity in L eye. L eye responsible to light. No field cuts. EoM intact. ENMT: external ear and nose normal, oropharynx normal (with the exception of R ear occluded by cerumen) Neck: trachea midline, no thyromegaly Respiratory: Mild bibasilar crackles. Otherwise CTAB A&P. -wheezes, -rales, -rhonchi. Symmetrical chest rise. No increased work of breathing. No respiratory distress. Cardiovascular: Irregularly Irregular. Radial pulses intact bilaterally. No murmers/rubs appreciated. Chest (Breasts): Chest: normal inspection of chest Gastrointestinal (Abdomen): normal bowel sounds, soft, nontender, no hepatosplenomegaly Obese, softly distended. Large (7-8cm) reducible, non- incarcerated umbilical hernia. R inguinal crease with grade I-II mild skin breakdown, otherwise without rash. Musculoskeletal: Spastic paraplegia, able to slightly move toes bilaterally otherwise no leg movement. Sensation to soft and sharp touch intact in all extremities bilaterally. Lower legs with 2+ pitting edema to the knee bilaterally. Mild weeping ulcerations present. Skin: Skin warm and dry. Grade 1 skin breakdown in the right inguinal crease as noted above. Mild weeping ulcerations of the legs bilaterally. Approximately 5 cm reducible umbilical hernia, nonincarcerated. 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 Sensation intact to soft and sharp touch in all extremities. 5/5 strength to elbow flexion, elbow extension, wrist flexion, wrist extension, finger flexion, finger extension, interossei. 0/5 strength bilaterally in lower extremities.Skin is warm, dry without signs of autonomic dysreflexia. Principal Diagnosis Acute on chronic congestive heart failure exacerbation Discharge Exam General: A&Ox3. NAD. Cooperative. Skin: Skin warm and dry. Bilateral leg edema trace today, continues to be improved. Approximately 5 cm reducible umbilical hernia, non-incarcerated. Mild bilateral LE erythema. HEENT: Atraumatic, normocephalic. Pulm: Bibasilar crackles. Otherwise CTAB A&P. -wheezes, -rhonchi. Symmetrical chest rise. No increased work of breathing. No respiratory distress. Cardiac: RRR, -mrg. Radial pulses intact and symmetrica Discharge Data Allergies Allergy/AdvReac Type Severity Reaction Status Date / Time No Known Allergies Allergy Verified 11/12/18 14:54 Hospital Course (1) CHF (congestive heart failure): Guanakito is a 73-year-old male with a history of atrial fibrillation with cardiac pacer, diet-controlled diabetes mellitus, hypertension, spastic paralysis, CHF, and chronic indwelling Coon with a recent hospital admission from who presents with 2 to 3 days of weakness and difficulty transferring from wheelchair to toilet. Acute on chronic congestive heart failure Patient was admitted with weakness and acute exacerbation of chronic congestive heart failure. Diuresis with Lasix 40 mg daily, serial chest x-rays were obtained demonstrating improvement in bilateral pulmonary edema. On physical exam his lower leg edema continued to improve throughout hospitalization. Daily weights were obtained on admission his weight was 104 kg. Discharge weight 96kg. His kidney function stable. He was hypokalemic with the lasix diuresis and was repleted as needed. He will be discharged on increased dose of Lasix 40 mg in the a.m. 20 mg in the p.m. and potassium chloride 20 mEq twice daily. He should follow-up his with his primary care physician within a week of discharge, primary care physician can check a BMP. Weakness On admission family is expressing concern that he may be getting UTI, UA was negative, patient did not have a leukocytosis, urine culture was negative as well. A patch of lower extremity cellulitis was noted, given the patient's recent admissions chronic UTIs and medical frailty weakness likely secondary to acute on chronic congestive heart failure with severe fluid overload as noted above. CBC and BMP were trended throughout admission and remained unremarkable with the exception of electrolyte abnormalities discussed above. Was initially covered with Zosyn and daptomycin narrowed to Rocephin, switch to p.o. Keflex on November 16, November 17 will be day 5 of 5 of antibiotics. We will send patient home with remaining doses of antibiotics LE Cellulitis (improved) On admission his lower legs bilaterally this with some demarcation, was treated empirically with Zosyn and Dapto narrowed to Rocephin transition to p.o. Keflex completed a 5-day course of antibiotics. On discharge they were improved, nontender with reduction in erythema. 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 His home cardiac medications were continued during this admission. Continue diltiazem 240 mg daily, lisinopril 40 mg daily, and metoprolol succinate 50 mg twice daily. Depression Continue sertraline 50 mg p.o. daily Continue zolpidem 10 mg p.o. nightly as needed for sleep Atrial fibrillation status post cardiac pacer placement Complete heart block noted on admitting EKG, Ventricular paced rhythm Continued apixaban 5 mg twice daily DM II Patient has a history of diabetes mellitus type 2 controlled on metformin Lantus at home. Blood sugars were well controlled during admission. -Resume home med on discharge DVT prophylaxis: Apixaban 5 mg twice daily as above Disposition: D/C home, PT recommends home discharge with home health PT services through [place]. (2) Weakness: see above (3) DVT prophylaxis: Total Time Total Time Spent Total Time Spent (In Minutes): >30 Discharge Plan Discharge Items Patient Disposition: Home - Self-Care Reason For Visit: WEAKNESS Discharge Diagnosis: Acute on chronic congestive heart failure exacerbation Discharge Goals: Therapeutic intervention Activity: As commented below Activity Comment: as tolerated Non-emergency contact: Primary Care Provider Call non-emergency contact if: you have any medication questions, your pain is unusual for you and your temperature is above 101.5 Follow-up/Referrals: Jm Carrillo III, MD [Primary Care Provider] - Diet: Carb Consistent or DM2 Addtl Provider Instructions: Care instructions: You were admitted to [facility] for treatment of acute on chronic congestive heart failure. A discharge summary will be sent to your primary care physician to ensure continuity of care.Please bring this discharge summary with you to your next office appointment so that your provider can review it at that time. You will be sent home with the remaining 2 doses of Keflex please take them as prescribed Your prescription medications were sent to [facility] Follow-up appointments: - Keep all your follow-up appointments as already scheduled. If you cannot make an appointment, notify your provider. - Please call to request a follow-up appointment with your primary care physician within one week of discharge. Please let us know if you are unable to obtain an appointment Medications: - Your medication list has been reviewed and reconciled upon discharge to ensure accuracy and continuity of care. - You are provided with a list of all your current medications at this time. Please review this list closely and make note of any changes. - Please take all of your medications exactly as prescribed. - Tell your primary care provider if you cannot afford your medications. - Call your primary care provider if you are having any side effects or any other problems. - Call your primary care provider before taking any over the counter medications or supplements, including herbals and vitamins, because some of these may interact with your current medications and/or make your symptoms worse. Symptoms: Please call your primary care provider for symptoms including, but not limited to: fevers (temperatures greater than 100.4), chills, intractable nausea or vomiting, diarrhea, rash, shortness of breath, bleeding, pain, or if you experience any worsening of the symptoms that brought you to the hospital. For EMERGENCY and VERY SERIOUS health-related issues, such as chest pain, shortness of breath, or sudden onset of the symptoms that brought you to the hospital, you may need to call 911 or go directly to the Emergency Room It has been our privilege to take care of you during your hospital stay. And Above All Else Fell Better! Best Wishes, Mauricio Salcedo MD PGY1 Resident, Family & Community Medicine [facility] [id number], [address] : [place] [address] Prescriptions: New potassium chloride [Klor-Con M20] 20 mEq Tablet,Er Particles/Crystals 20 meq PO BID 30 Days Qty: 60 RF: 0 furosemide [Lasix] 20 mg tablet 20 mg PO BID Qty: 90 RF: 0 Continued apixaban 5 mg tablet 5 mg PO BID RF: 0 baclofen 10 mg tablet 10 mg PO QID RF: 0 brimonidine 0.2 % drops 1 drops OP BID RF: 0 diltiazem HCl 240 mg capsule,extended release 24 hr 240 mg PO DAILY RF: 0 dorzolamide [Trusopt] 2 % drops 1 drops OP TID RF: 0 lisinopril 40 mg tablet 40 mg PO DAILY RF: 0 methenamine hippurate 1 gram tablet 1 gm PO QPM RF: 0 multivitamin capsule 1 cap PO DAILY RF: 0 sertraline [Zoloft] 50 mg tablet 50 mg PO HS RF: 0 zolpidem 10 mg tablet 10 mg PO HS PRN (Reason: sleep) RF: 0 latanoprost 0.005 % drops 1 drp OPB HS RF: 0 metoprolol succinate 50 mg Tablet Extended Release 24 Hr 50 mg PO BID RF: 0 aspirin 81 mg Tablet,Delayed Release (Dr/Ec) 81 mg PO HS RF: 0 PreserVision AREDS-2 [id number] ip-wtws-he-mg capsule 1 cap PO BID RF: 0 Lantus Solostar U-100 Insulin 100 unit/mL (3 mL) Insulin Pen 10 unit SUBCUT BID RF: 0 metformin 500 mg Tablet PO BID RF: 0 Discontinued furosemide [Lasix] 40 mg tablet 40 mg PO DAILY RF: 0 Stand-Alone Forms: My [facility] Discharge Orders: Discharge Order (Routine); Ordered 11/17/18 Ordered By: Mauricio Salcedo Admission Data Admit Date/Time: 11/14/18 10:42 Attending Provider: Juana Charles Admit Provider: Reen Byrant Primary Care Provider: Jm Carrillo III Service: Telemetry Medical Other Interventions: Discharge Summary Assessment (RN) Last Done: 11/17/18 13:53 DC Date/Time DO NOT enter until pt leaves facility: 11/17/18 15:59 Supervising Physician Co-Signing Physician Notes Patient seen and examined with Dr. Salcedo. Agree with history, exam findings, assessment and plan of care as outlined. In brief, Mr. Tran is a 73 year old male with hx of afib (pacer), DM, HTN, CHF, spastic paralysis and chronic indwelling Coon admitted with generalized weakness. Overall, continues to improve. Denies dyspnea or chest pain. Minimally decreased breath sounds in the right base, but improved from previous days exams. 1. Acute on chronic CHF (diastolic). Diuresed with IV lasix here. Weight on discharge 96kg. 2. Weakness. Chronic venous stasis vs early cellulitis. Transition to oral keflex. 3. HTN. Elevated BPs, but reports that home BPs are generally within goal range. Diltiazem ER 240mg, Lisinopril 40mg, metoprolol 50mg. 4. DM. sugars well controlled here. Resume home lantus, metformin, Dispo: discharge home today with home health through the [place]. I personally spent 35 minutes discharge planning for this patient. Resident Activity Tracking Resident Involvement: Resident Care Provided Care Provided: Adult Hospital Medicine
[2018-11-17 07:16] LABS: Basophils # (auto) 0.02 K/uL (0-0.2); Basophils % (auto) 0.2 %; Eosinophils # (auto) 0.71 K/uL (0-0.5); Hemoglobin 13.6 g/dL (14.0-18.0); Immature Granulocytes # (auto) 0.02 K/uL (0.00-0.02); Immature Granulocytes % (auto) 0.2 %; Lymphocytes # (auto) 1.44 K/uL (1.2-3.4); Lymphocytes % (auto) 16.3 %; Mean Corpuscular Hgb Conc 33.2 g/dL (32-36); Mean Corpuscular Volume 79.3 fL (80-100); Mean Platelet Volume 10.6 fL (7.4-10.4); Monocytes # (auto) 0.95 K/uL (0.11-0.59); Monocytes % (auto) 10.8 %; Neutrophils # (auto) 5.69 K/uL (1.4-6.5); Neutrophils % (auto) 64.5 %; Platelet Count 318 K/uL (130-400); RDW Coefficient of Variation 17.5 % (11.5-14.5); RDW Standard Deviation 50.5 fL (36.4-46.3); Red Blood Count 5.17 M/uL (4.7-6.1); White Blood Count 8.83 K/uL (4.8-10.8)
[2018-11-17 07:54] LABS: BUN Creatinine Ratio 25.6 (10-20); Calcium 8.7 mg/dl (8.5-10.1); Creatinine Clr Calc Pharmacy 82.7 ml/min; Est GFR (African American) 92.9; Est GFR (Non-African American) 80.1; Potassium 3.3 mmol/L (3.5-5.1)
[2018-11-17] MEDS: BRIMONIDINE TARTRATE 0.2% 5ML OP SCH (08:41)
[2018-11-17] MEDS: dilTIAZem HCL 240 MG CAPCR PO SCH (08:45)
[2018-11-17] MEDS: cephALEXin 500 MG CAP PO SCH ×2 (08:46→12:11)
[2018-11-17] MEDS: APIXABAN 5 MG TABLET PO SCH (08:46)
[2018-11-17] MEDS: BACLOFEN 10 MG TAB PO SCH ×2 (08:47→12:11)
[2018-11-17] MEDS: MULTIVITAMIN TAB PO SCH (08:48)
[2018-11-17] MEDS: METOPROLOL SUCC 50MG EXT REL TAB PO SCH (08:48)
[2018-11-17] MEDS: LISINOPRIL 40 MG TAB PO SCH (08:48)
[2018-11-17] MEDS: DORZOLAMIDE HCL 2% OPH SOLN 10 ML BTL OP SCH ×2 (08:50→13:12)
[2018-11-17] MEDS ORDERED: INSULIN GLARGINE SOLOSTAR 100 UNITS/ML 3 ML PEN SC ONE ×2 (09:00→21:00)
[2018-11-17] MEDS ORDERED: POLYETHYLENE (MIRALAX) 17 GM PACK PO SCH (09:28)
--- NOTE | 2018-11-17 10:15 | Pharmacy Report ---
Pharmacy Glycemic Short Note 2 - Date of Service November 17, 2018 - Glycemic Short BSG Results (Last 24 hours): 11/16/18 11/16/18 11/16/18 18:52 18:54 20:20 Glucose POC Glucose 302 H* 307 H* 282 H 11/17/18 11/17/18 11/17/18 00:19 04:01 06:49 Glucose 142 H POC Glucose 129 H 131 H 11/17/18 07:46 Glucose POC Glucose 169 H OUTPATIENT ANTIDIABETIC REGIMEN: * Lantus 10 units BID, metformin - unknown dosing will need to follow up * A1c = 7.9 % 09-02-18 ASSESSMENT: * 73 year old admitted for weakness and cellulitis. PMHx significant for CHF, depression,htn * Pharmacy consulted for BSG of 307 mg/dL - BSGs likely related to infection, however no insulin ordered since admission. After talking with the nurse, patient does report taking Lantus and metformin at home, however it was not listed on medication list on admission * Verified he takes Lantus 10 BID and unsure of metformin dosing - will need to clarify * BSG of 307 mg/dL was right after patient ate dinner - nurse not sure how many carbs consumed; recheck at 2100 at 282 mg/dL; will add Lantus/novolog at this time * AM fasting BSG trending downwards and near goal range today @ 169mg/dl. Will continue stressed outpatient dosing x 1 more dose and then resume outpatient dosing + NovoLog scale PLAN FOR INPATIENT GLYCEMIC CONTROL: * Hold outpatient oral diabetes medications * Basal insulin * Lantus 15 units SQ x 1 dose this AM then, * Lantus 10 units SQ BID * Bolus insulin * NovoLog per scale ACHS or Q6hrs while NPO * Goal Range: Low 100 mg/dL - High 140 mg/dL * Correction Factor: 25 mg/dL/unit * Nutritional / Prandial insulin per carb ratio of 1 unit per 8 grams CHO consumed PLAN FOR DISCHARGE: * A1c near goal range for patient based on age and co-morbidities. Metformin dosing needs clarified. Dosing of metformin may need titrated upwards/maximized for better control.
[2018-11-17] MEDS: FUROSEMIDE 40 MG in SYRINGE 0 ML IV SCH (11:10)
[2018-11-17] MEDS: POTASSIUM CHLORIDE 20 MEQ TABCR PO SCH ×3 (12:12→15:32)
[2018-11-17] MEDS ORDERED: INSULIN GLARGINE SOLOSTAR 100 UNITS/ML 3 ML PEN SC SCH (21:00)
== END 2018-11-17 15:59 | disposition home or self-care (01) | DRG 292 ==
LOC: 2N 12:59 → ED 12:59 → 2N 19:50 → SUATTDRO 11-14 10:42

== ENCOUNTER 2019-01-20 18:58 | Inpatient (IN) ==
--- NOTE | 2019-01-20 19:41 | XRay Report ---
XR chest 1V portable CLINICAL HISTORY: Shortness of breath, weakness. Congestive heart failure. COMPARISON STUDY: 11/15/2018 FINDINGS: The cardiac and mediastinal contours remain stable. There is a left subclavian single chamb er central venous pacemaker. There is radiographic evidence of congestive failure/fluid overload. The re are small bilateral pleural effusions. Basilar opacities, likely represent[compressive atelectasis . IMPRESSION: Congestive failure with small bilateral pleural effusions with associated basilar opaciti es, statistically atelectatic. Electronically signed by: Bill Isaacs M.D. 01/20/2019 7:40 PM
[2019-01-20 19:54] LABS: Basophils # (auto) 0.03 K/uL (0-0.2); Basophils % (auto) 0.3 %; Eosinophils # (auto) 0.53 K/uL (0-0.5); Eosinophils % (auto) 5.1 %; Hematocrit (blood only) 40.2 % (42-52); Hemoglobin 12.7 g/dL (14.0-18.0); Immature Granulocytes # (auto) 0.02 K/uL (0.00-0.02); Immature Granulocytes % (auto) 0.2 %; Lymphocytes # (auto) 1.63 K/uL (1.2-3.4); Lymphocytes % (auto) 15.7 %; Mean Corpuscular Hgb Conc 31.6 g/dL (32-36); Mean Corpuscular Volume 81.4 fL (80-100); Mean Platelet Volume 11.6 fL (7.4-10.4); Monocytes # (auto) 0.78 K/uL (0.11-0.59); Monocytes % (auto) 7.5 %; Neutrophils # (auto) 7.36 K/uL (1.4-6.5); Neutrophils % (auto) 71.2 %; Platelet Count 295 K/uL (130-400); RDW Coefficient of Variation 17.5 % (11.5-14.5); RDW Standard Deviation 51.8 fL (36.4-46.3); Red Blood Count 4.94 M/uL (4.7-6.1); White Blood Count 10.35 K/uL (4.8-10.8)
[2019-01-20 19:59] LABS: Base Excess VBG 6.9 mEq/L; Oxygen Saturation VBG 81.6 %; pH VBG 7.4 (7.36-7.41)
[2019-01-20 20:05] LABS: INR 1.1 (0.9-1.1); Partial Thromboplastin Ratio 1.1; Partial Thromboplastin Time 30.3 Seconds (21.0-31.0); Prothrombin Time 11.5 Seconds (9.0-12.0)
[2019-01-20 20:17] LABS: Alanine Aminotransferase 26 U/L (12-78); Albumin Level 3.1 gm/dl (3.4-5.0); Aspartate Aminotransferase 17 U/L (15-37); BUN Creatinine Ratio 26.8 (10-20); Bilirubin Direct 0.3 mg/dl (0-0.2); Blood Urea Nitrogen 31 mg/dl (7-18); Calcium 8.9 mg/dl (8.5-10.1); Carbon Dioxide 32 mmol/L (21-32); Chloride 102 mmol/L (98-107); Creatinine Clr Calc Pharmacy 67.9 ml/min; Est GFR (African American) 71.3; Est GFR (Non-African American) 61.5; Glucose 211 mg/dl (70-99); Magnesium 2.2 mg/dl (1.8-2.4); Potassium 3.8 mmol/L (3.5-5.1); Sodium 142 mmol/L (136-145)
[2019-01-20 20:22] LABS: Alkaline Phosphatase 145 U/L (45-117); Bilirubin,Total 1.2 mg/dl (0.2-1); NT Pro B Type Natriuretic Pept 8066 pg/ml (0-900); Total Protein 7.6 gm/dl (6.4-8.2); Troponin I < 0.015 ng/ml (0-0.045)
[2019-01-20] MEDS ORDERED: FUROSEMIDE 40 MG/4 ML VIAL IV STA ×2 (20:25→21:03)
--- NOTE | 2019-01-20 21:10 | History & Physical Report ---
Date of Service January 20, 2019 Assessment & Plan (1) Acute on chronic diastolic CHF (congestive heart failure): 73 yo male with a history of atrial fibrillation, diastolic CHF with preserved LV function on daily lasix, diabetes, spastic paraplegia, depression presents with acute hypoxic respiratory distress. The patient states he has become progressively SOB over the past 4 days. He expresses orthopnea and lower extremity swelling. States that he has been taking his medications and has been avoiding salt. He denies chest pain. Acute on chronic diastolic CHF, presents with hypoxia The patient appears fluid overloaded, and CXR shows congestion-- plan is to ale canales in the ED and reevaluate for admission - Lasix 80 IV administered in ED, approximately 1 L out and still dyspneic, admit to telemetry for continued diuresis - Strict I/O's, daily weights, low NA diet, fluid restrict 1500 cc/day Erythematous left lower extremity, chronic The area is neither warm or painful, consistent with inflammatory changes in the setting of edema, venous stasis No fever, no white count, seen on previous admissions, does not appear celluliticwe will not treat with antibiotics History of spastic paraplegia Continue baclofen Hypertension/A. fib Continue lisinopril, metoprolol, apixaban Depression Continue sertraline Diabetes Sliding scale insulin DVT prophylaxis Apixaban CODE STATUS DNR/DNI (2) Artificial cardiac pacemaker: (3) Diabetes mellitus: History of Present Illness Patient denies nausea vomiting or diarrhea Chief Complaint: SOB Primary Care Provider: Jm Carrillo MD 73 yo male with a history of atrial fibrillation, diastolic CHF with preserved LV function on daily lasix presents with acute hypoxic respiratory distress. The patient states he has become progressively SOB over the past 4 days. The patient is dyspneic at rest and relates orthopnea. States that he has been taking his medications and has been avoiding salt. He denies chest pain. The patient denies n/v/d or blood in his stool. States that he lives alone and has family and home health checking in on him. He is wheelchair bound with a diagnosis of spastic paraplegia Allergies Allergy/AdvReac Type Severity Reaction Status Date / Time No Known Allergies Allergy Verified 11/28/18 13:46 Home Medications Home Medications Medication Instructions Recorded Confirmed Type apixaban 5 mg tablet 5 mg PO BID 02/18/18 01/20/19 History lisinopril 40 mg tablet 40 mg PO DAILY 02/18/18 01/20/19 History methenamine hippurate 1 gram tablet 1 gm PO QPM tab 02/18/18 01/20/19 History baclofen 10 mg tablet 10 mg PO Q6H tab 11/28/18 01/20/19 History metformin 1,000 mg tablet 1,000 mg PO BID #30 tab 11/28/18 01/20/19 Rx brimonidine 1 drp OPB BID 01/20/19 01/20/19 History diltiazem HCl [Cardizem LA] 240 mg PO DAILY 01/20/19 01/20/19 History furosemide [Lasix] 20 mg PO HS 01/20/19 01/20/19 History furosemide [Lasix] 40 mg PO QAM 01/20/19 01/20/19 History glipizide 10 mg PO BID 01/20/19 01/20/19 History latanoprost 1 drp OPB HS 01/20/19 01/20/19 History metoprolol tartrate [Lopressor] 50 mg PO BID 01/20/19 01/20/19 History multivitamin 1 tab PO DAILY 01/20/19 01/20/19 History potassium chloride [Klor-Con M20] 20 meq PO BID 01/20/19 01/20/19 History sertraline [Zoloft] 50 mg PO DAILY 01/20/19 01/20/19 History vitamins A,C,I-xwlf-wlvndd 1 tab PO BID 01/20/19 01/20/19 History [PreserVision AREDS] zolpidem [Ambien] 10 mg PO HS 01/20/19 01/20/19 History Past Med/Surg History Medical History A-fib (Acute) Leg ulcer (Acute) Cellulitis (Chronic) Diabetes 1.5, managed as type 2 (Chronic) Glaucoma (Chronic) HTN (hypertension) (Chronic) Hydrocele (Chronic) Scrotal mass (Chronic) Sepsis (Chronic) Small intestine obstruction (Chronic) Spastic paralysis (Chronic) UTI (urinary tract infection) (Chronic) Urinary retention (Chronic) Acute diastolic heart failure Surgical History History of toe surgery (Chronic) S/P TURP (Chronic) Family History Other No significant family history Social History Preferred Language: Yoruba Communication Ability: Effective Front Services Agent Required: No Beliefs That Will Affect Care: None Current Living Situation: Alone Other Information That Helps Us Care for You: No Feels Safe at Home: Yes Safety Concerns: Feels Safe At This Time Smoking Status: Former smoker Tobacco Type: cigarettes Cigarettes Per Day: about 45 years ago Do You Dip or Chew Tobacco: No Smoking End Date: quit in his 30's Second Hand Exposure: No Hx Alcohol Use: No Hx Substance Use: No Review of Systems Review of Systems: All systems reviewed & are unremarkable except as noted in HPI & below Physical Exam Constitutional: + disheveled; no acute distress and + not healthy appearing Respiratory: + labored breathing; + abnormal respiratory effort, does not use accessory muscles and no nasal flaring Auscultation: + crackles and + rales; no wheezes Cardiovascular: Rate/Rhythm: + irregularly irregular Heart Sounds: no click, no murmur and no cardiac rub Vessels: + JVD Extremities: + edema (bl le +1) Gastrointestinal (Abdomen): normal bowel sounds, soft, nontender, no hepatosplenomegaly Musculoskeletal: no cyanosis or clubbing, extremities motor strength 5/5 Skin: erythematous left lower ext, scattered excoriations, no warmth, no pain Results & Data Vital Signs (Past 12 Hours) Vital Signs Temp Pulse Pulse Resp BP BP Pulse Ox 01/20/19 19:19 109 H 20 95 01/20/19 19:03 109 H 20 171/149 H 88 L 01/20/19 19:00 36.3 C L 106 H 20 185/132 H 93 Diagnostic Findings Patient: CECE RIVERA EAdmit Date: 01/20/19 MR#: [id number] [address] YOLY Acct ID:[id number]: Date: 1945[facility] Zip: [place] [address] Age: 73Location: ED Sex: M Room/Bed: Att Phy: Diagnosis: BLADDER INFECTION, WEAKNESS, INSOMNIA, CONFUSION Thelma Phy: Jm Carrillo III, Irina Date: 01/20/19 [facility] Phy: Interpreting Phy: Bill Isaacs MD Admit Phy: Ordering Phy: Oc Wilhelm M.D. cc: ~ XR chest 1V portable CLINICAL HISTORY: Shortness of breath, weakness. Congestive heart failure. COMPARISON STUDY: 11/15/2018 FINDINGS: The cardiac and mediastinal contours remain stable. There is a left subclavian single chamber central venous pacemaker. There is radiographic evidence of congestive failure/fluid overload. There are small bilateral pleural effusions. Basilar opacities, likely represent[compressive atelectasis. IMPRESSION: Congestive failure with small bilateral pleural effusions with associated basilar opacities, statistically atelectatic. Electronically signed by: Bill Isaacs M.D. 01/20/2019 7:40 PM Dictated: 01/20/191937 Transcribed: 01/20/191937 Code Status & VTE Plan Code Status DNR/DNI Supervising Physician Co-Signing Physician Notes Pt seen/examined in conjunction with resident MD Lamas. Orders and plan of admission formulated with resident. 73 y/o M Hx AF, diastolic CHF - presents with progressive SOB - hypoxic on arrival to the ER - denies CP, fever, productive cough. Imaging and exam are consistent with CHF exacerbation. OE AAO x 3 S1,2 faint, irr Cannot discern crackles - decreased air at bases NT, ND, BS + + edema No deficits P: Admitted for diuresis - no evidence of ACS or event as precipitating factor - he does admit to canned soup. Cont INÉS B buzz Anticoagulated with Apixaban PG Care Time/CCT Total # of Minutes Spent Total Time Spent with Patient: Total time spent is greater than 50% in coordination of care (as documented) at patient's floor/unit and/or counseling patient: Resident Activity Tracking Resident Involvement: Resident Care Provided Care Provided: Adult Hospital Medicine (1) Diabetes mellitus Diabetes mellitus complication status: with skin complications Diabetes mellitus roller inspector insulin use: without roller inspector use Diabetes mellitus type: type 2
[2019-01-20 21:15] LABS: Appearance Urine Cloudy (Clear); Bacteria Urine Automated 4+ (Negative); Bilirubin Urine Negative (Negative); Blood Urine 3+ (Negative); Color Urine Yellow; Glucose Urine UA Negative (Negative); Ketones Urine Negative (Negative); Leukocyte Esterase Urine 2+ (Negative); Nitrite Urine Positive (Negative); Protein Urine 3+ (Negative); RBC Urine Automated >30 /hpf (0-4); Urobilinogen Urine Negative (Negative); WBC Urine Automated >30 /hpf (0-5)
[2019-01-20] MEDS ORDERED: cefTRIAXone SODIUM 1,000 MG/50 ML BAG IV STA (21:34)
--- NOTE | 2019-01-20 23:14 | Emergency Department Note ---
Entered by Elisa Quintero acting as a scribe for History of Present Illness General Chief complaint: Shortness of Breath/Dyspnea Stated complaint: BLADDER INFECTION, WEAKNESS, INSOMNIA, CONFUSION Time Seen by Provider: 01/20/19 19:11 Source: patient History of Present Illness Onset (ago): day(s) 3 Location: chest Pain Consistency: + other (worsening ) Relieved By: + none Associated symptoms: + weakness and + other (pedal edema ); no chest pain Treatments prior to arrival: none The patient is a 73 year old male who presents to the ED with complaints of worsening shortness of breath that began 3 days ago. The patient states that he feels weak. He states that he takes Lasix because he retains fluids but his legs seem more swollen than usual. He states that he is on the blood thinner, Eliquis. 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 The patient denies chest pain and the use of oxygen. The patient denies a history of asthma and COPD. Home Medications Home Medications Medication Instructions Recorded Confirmed Type apixaban 5 mg tablet 5 mg PO BID 02/18/18 01/20/19 History lisinopril 40 mg tablet 40 mg PO DAILY 02/18/18 01/20/19 History methenamine hippurate 1 gram tablet 1 gm PO QPM tab 02/18/18 01/20/19 History baclofen 10 mg tablet 10 mg PO Q6H tab 11/28/18 01/20/19 History metformin 1,000 mg tablet 1,000 mg PO BID #30 tab 11/28/18 01/20/19 Rx brimonidine 1 drp OPB BID 01/20/19 01/20/19 History diltiazem HCl [Cardizem LA] 240 mg PO DAILY 01/20/19 01/20/19 History furosemide [Lasix] 20 mg PO HS 01/20/19 01/20/19 History furosemide [Lasix] 40 mg PO QAM 01/20/19 01/20/19 History glipizide 10 mg PO BID 01/20/19 01/20/19 History latanoprost 1 drp OPB HS 01/20/19 01/20/19 History metoprolol tartrate [Lopressor] 50 mg PO BID 01/20/19 01/20/19 History multivitamin 1 tab PO DAILY 01/20/19 01/20/19 History potassium chloride [Klor-Con M20] 20 meq PO BID 01/20/19 01/20/19 History sertraline [Zoloft] 50 mg PO DAILY 01/20/19 01/20/19 History vitamins A,C,I-[id number] 1 tab PO BID 01/20/19 01/20/19 History [PreserVision AREDS] zolpidem [Ambien] 10 mg PO HS 01/20/19 01/20/19 History Allergies Allergy/AdvReac Type Severity Reaction Status Date / Time No Known Allergies Allergy Verified 11/28/18 13:46 Past Med/Surg History Medical History A-fib (Acute) Leg ulcer (Acute) Cellulitis (Chronic) Diabetes 1.5, managed as type 2 (Chronic) Glaucoma (Chronic) HTN (hypertension) (Chronic) Hydrocele (Chronic) Scrotal mass (Chronic) Sepsis (Chronic) Small intestine obstruction (Chronic) Spastic paralysis (Chronic) UTI (urinary tract infection) (Chronic) Urinary retention (Chronic) Acute diastolic heart failure Surgical History History of toe surgery (Chronic) S/P TURP (Chronic) Family History Other No significant family history Social History Preferred Language: Setswana Communication Ability: Effective Barrel Drum Cutter Required: No Beliefs That Will Affect Care: None Current Living Situation: Alone Other Information That Helps Us Care for You: No Feels Safe at Home: Yes Safety Concerns: Feels Safe At This Time Smoking Status: Former smoker Tobacco Type: cigarettes Cigarettes Per Day: about 45 years ago Do You Dip or Chew Tobacco: No Smoking End Date: quit in his 30's Second Hand Exposure: No Hx Alcohol Use: No Hx Substance Use: No Review of Systems See HPI for pertinent positives & negatives. and A total of 10 systems reviewed and were otherwise negative Physical Exam Vital Signs Vital Signs - 24 hr 01/20/19 19:00 01/20/19 19:03 01/20/19 19:09 Temperature 36.3 C L Temperature Source Oral Sepsis Recent Fever Within 48 Hours No Sepsis Action Taken by Nursing No Action Required Oxygen Flow Rate - Titration 2 Pulse Oximetry Post Tiitration 95 Pulse Rate 106 H 99 H Pulse Rate [Bilateral] 109 H Pulse Rate from SpO2 Sensor 111 H Pulse Rhythm Pulse Rhythm [Bilateral] Irregular Respiratory Rate 20 20 36 H Respiratory Effort / Characteristics Short of Breath Non-Labored Spontaneous Respiratory Depth Normal Normal Respiratory Pattern Regular Blood Pressure 185/132 H 171/149 H Blood Pressure [Right Arm] 171/149 H Blood Pressure Mean 149 156 Blood Pressure Mean [Right Arm] 156 Blood Pressure Position [Right Arm] Sitting Pulse Oximetry 93 88 L 94 Oxygen Delivery Method Room Air Nasal Cannula Nasal Cannula Oxygen Flow Rate 2 2 01/20/19 19:19 01/20/19 19:24 01/20/19 19:30 Temperature Temperature Source Sepsis Recent Fever Within 48 Hours Sepsis Action Taken by Nursing Oxygen Flow Rate - Titration Pulse Oximetry Post Tiitration Pulse Rate 109 H 104 H 108 H Pulse Rate [Bilateral] Pulse Rate from SpO2 Sensor 109 H 108 H Pulse Rhythm Irregular Pulse Rhythm [Bilateral] Respiratory Rate 20 28 H 29 H Respiratory Effort / Characteristics Respiratory Depth Respiratory Pattern Blood Pressure Blood Pressure [Right Arm] Blood Pressure Mean Blood Pressure Mean [Right Arm] Blood Pressure Position [Right Arm] Pulse Oximetry 95 95 96 Oxygen Delivery Method Nasal Cannula Nasal Cannula Nasal Cannula Oxygen Flow Rate 2 2 2 01/20/19 19:40 01/20/19 19:50 01/20/19 19:54 Temperature Temperature Source Sepsis Recent Fever Within 48 Hours Sepsis Action Taken by Nursing Oxygen Flow Rate - Titration Pulse Oximetry Post Tiitration Pulse Rate 108 H 102 H 95 H Pulse Rate [Bilateral] Pulse Rate from SpO2 Sensor 112 H 98 H 97 H Pulse Rhythm Pulse Rhythm [Bilateral] Respiratory Rate 22 22 26 H Respiratory Effort / Characteristics Respiratory Depth Respiratory Pattern Blood Pressure 179/125 H Blood Pressure [Right Arm] Blood Pressure Mean 143 Blood Pressure Mean [Right Arm] Blood Pressure Position [Right Arm] Pulse Oximetry 95 96 94 Oxygen Delivery Method Nasal Cannula Nasal Cannula Nasal Cannula Oxygen Flow Rate 2 2 2 01/20/19 20:00 01/20/19 20:01 01/20/19 20:10 Temperature Temperature Source Sepsis Recent Fever Within 48 Hours Sepsis Action Taken by Nursing Oxygen Flow Rate - Titration Pulse Oximetry Post Tiitration Pulse Rate 96 H 91 H 102 H Pulse Rate [Bilateral] Pulse Rate from SpO2 Sensor 96 H 93 H 112 H Pulse Rhythm Pulse Rhythm [Bilateral] Respiratory Rate 16 18 20 Respiratory Effort / Characteristics Respiratory Depth Respiratory Pattern Blood Pressure 175/138 H Blood Pressure [Right Arm] Blood Pressure Mean 150 Blood Pressure Mean [Right Arm] Blood Pressure Position [Right Arm] Pulse Oximetry 95 95 96 Oxygen Delivery Method Nasal Cannula Nasal Cannula Nasal Cannula Oxygen Flow Rate 2 2 2 01/20/19 20:20 01/20/19 20:30 01/20/19 20:40 Temperature Temperature Source Sepsis Recent Fever Within 48 Hours Sepsis Action Taken by Nursing Oxygen Flow Rate - Titration Pulse Oximetry Post Tiitration Pulse Rate 96 H 101 H 83 Pulse Rate [Bilateral] Pulse Rate from SpO2 Sensor 92 H 98 H 85 Pulse Rhythm Pulse Rhythm [Bilateral] Respiratory Rate Respiratory Effort / Characteristics Respiratory Depth Respiratory Pattern Blood Pressure 170/104 H Blood Pressure [Right Arm] Blood Pressure Mean 126 Blood Pressure Mean [Right Arm] Blood Pressure Position [Right Arm] Pulse Oximetry 95 96 96 Oxygen Delivery Method Nasal Cannula Nasal Cannula Nasal Cannula Oxygen Flow Rate 2 2 2 01/20/19 20:50 01/20/19 21:00 01/20/19 21:01 Temperature Temperature Source Sepsis Recent Fever Within 48 Hours Sepsis Action Taken by Nursing Oxygen Flow Rate - Titration Pulse Oximetry Post Tiitration Pulse Rate 92 H 95 H 93 H Pulse Rate [Bilateral] Pulse Rate from SpO2 Sensor 98 H 94 H 94 H Pulse Rhythm Pulse Rhythm [Bilateral] Respiratory Rate 17 16 20 Respiratory Effort / Characteristics Respiratory Depth Respiratory Pattern Blood Pressure 151/110 H Blood Pressure [Right Arm] Blood Pressure Mean 123 Blood Pressure Mean [Right Arm] Blood Pressure Position [Right Arm] Pulse Oximetry 93 95 95 Oxygen Delivery Method Nasal Cannula Nasal Cannula Nasal Cannula Oxygen Flow Rate 2 2 2 01/20/19 21:10 01/20/19 21:20 01/20/19 21:26 Temperature Temperature Source Sepsis Recent Fever Within 48 Hours Sepsis Action Taken by Nursing Oxygen Flow Rate - Titration Pulse Oximetry Post Tiitration Pulse Rate 91 H 95 H Pulse Rate [Bilateral] Pulse Rate from SpO2 Sensor 91 H 103 H Pulse Rhythm Pulse Rhythm [Bilateral] Respiratory Rate 22 21 Respiratory Effort / Characteristics Spontaneous Labored Short of Breath Respiratory Depth Respiratory Pattern Blood Pressure Blood Pressure [Right Arm] Blood Pressure Mean Blood Pressure Mean [Right Arm] Blood Pressure Position [Right Arm] Pulse Oximetry 94 95 Oxygen Delivery Method Nasal Cannula Nasal Cannula Nasal Cannula Oxygen Flow Rate 2 2 2 07/29/19 21:30 01/20/19 21:40 01/20/19 21:50 Temperature Temperature Source Sepsis Recent Fever Within 48 Hours Sepsis Action Taken by Nursing Oxygen Flow Rate - Titration Pulse Oximetry Post Tiitration Pulse Rate 101 H 93 H 86 Pulse Rate [Bilateral] Pulse Rate from SpO2 Sensor 94 H 89 94 H Pulse Rhythm Pulse Rhythm [Bilateral] Respiratory Rate 17 30 H 16 Respiratory Effort / Characteristics Respiratory Depth Respiratory Pattern Blood Pressure 176/110 H Blood Pressure [Right Arm] Blood Pressure Mean 132 Blood Pressure Mean [Right Arm] Blood Pressure Position [Right Arm] Pulse Oximetry 95 95 96 Oxygen Delivery Method Nasal Cannula Nasal Cannula Nasal Cannula Oxygen Flow Rate 2 2 2 01/20/19 23:02 Temperature Temperature Source Sepsis Recent Fever Within 48 Hours Sepsis Action Taken by Nursing Oxygen Flow Rate - Titration Pulse Oximetry Post Tiitration Pulse Rate 78 Pulse Rate [Bilateral] Pulse Rate from SpO2 Sensor Pulse Rhythm Pulse Rhythm [Bilateral] Respiratory Rate 18 Respiratory Effort / Characteristics Respiratory Depth Respiratory Pattern Blood Pressure 178/103 H Blood Pressure [Right Arm] Blood Pressure Mean Blood Pressure Mean [Right Arm] Blood Pressure Position [Right Arm] Pulse Oximetry 95 Oxygen Delivery Method Nasal Cannula Oxygen Flow Rate 2 HENT: Exam performed. - Head: Normocephalic and atraumatic. - Right Ear: External ear normal. No mastoid tenderness. - Left Ear: External ear normal. No mastoid tenderness. - Mouth/Throat: The oropharynx is clear and moist. No trismus in the jaw. No dental abscesses or uvula swelling. No oropharyngeal exudate or tonsillar abscesses. EYES: Conjunctivae and EOM are normal. Pupils are equal, round, and reactive to light. Right eye exhibits no discharge. Left eye exhibits no discharge. No scleral icterus. NECK: Normal range of motion. Neck supple. No JVD present. No spinous process tenderness present. No carotid bruit present. No rigidity. No tracheal deviation and normal range of motion present. No Brudzinski's sign and no Kernig's sign noted. CV: Irregular rhythm, tachycardia rate, normal heart sounds and intact distal pulses.Palpable radial pulses bue. PULM/CHEST: Diminished breathe sounds bilaterally. Rales at the basess bilat erally. - Chest Wall: He exhibits no tenderness. ABD: Umbilical hernia that is non-tender. No overlying skin changes of the hernia, reducible. Abdomen is soft and non-tender. MUSC/SKEL: Normal range of motion. 2+ pedal edema of bilaterally lower extremities. LYMPH: No cervical adenopathy. NEURO: He is alert and oriented to person, place, and time. He has normal strength. No cranial nerve deficit or sensory deficit. Coordination and gait normal. GCS eye subscore is 4. GCS verbal subscore is 5. GCS motor subscore is 6. Cerebellar tests wnl. SKIN: Skin is warm and dry. He is not diaphoretic. PSYCH: He has a normal mood and affect. Behavior is normal. Judgment and thought content normal. : Coon catheter in place. Course 1914: Past medical records reviewed. The patient was evaluated in room A10. A complete history and physical exam was performed.The patient was found to be hypoxic on room air. He was given 2L nasal cannula of oxygen. 2030: Vital signs stable and a nasal cannula. The patients labs show a BNP of 8066. Given the patients hypoxia, elevation of BNP and findings of fluid overload on the chest x-ray, the patient will be placed on 40mg of Lasix. I discussed the patient's case with the wound and the hospitalist Dr. Wyatt and they have agreed to admit the patient for further management. Consultations Time: 20:30 Administered Medications Discontinued Medications Furosemide (Lasix) 40 mg IV NOW STA Stop: 01/20/19 20:26 Last Admin: 01/20/19 21:24 Dose: 40 mg Documented by: [id number] Furosemide (Lasix) 40 mg IV NOW STA Stop: 01/20/19 21:04 Last Admin: 01/20/19 21:25 Dose: 40 mg Documented by: [id number] Ceftriaxone Sodium (Rocephin) 1,000 mg in 50 mls @ 100 mls/hr IV NOW STA Stop: 01/20/19 22:03 Last Infusion: 01/20/19 22:30 Dose: 0 mls/hr Documented by: [id number] Admin: 01/20/19 21:54 Dose: 100 mls/hr Documented by: [id number] Medical Decision Making Medical Records Attestation: I reviewed the patient's medical records. Home Medications Current Medication List: was personally reviewed by me Laboratory Data Attestation: I reviewed the patient's lab results. Result diagrams: 01/20/19 19:30 01/20/19 19:30 Lab Results 01/20/19 01/20/19 01/20/19 Range/Units 19:30 19:30 19:30 WBC 10.35 (4.8-10.8) K/uL RBC 4.94 (4.7-6.1) M/uL Hgb 12.7 L (14.0-18.0) g/dL Hct 40.2 L (42-52) % MCV 81.4 (80-100) fL MCH 25.7 (25-34) pg MCHC 31.6 L (32-36) g/dL RDW Std Deviation 51.8 H (36.4-46.3) fL RDW Coeff of Da 17.5 H (11.5-14.5) % Plt Count 295 (130-400) K/uL MPV 11.6 H (7.4-10.4) fL Immature Gran % (Auto) 0.2 % Neut % (Auto) 71.2 % Lymph % (Auto) 15.7 % [place] % (Auto) 7.5 % Eos % (Auto) 5.1 % Baso % (Auto) 0.3 % Immature Gran # (Auto) 0.02 (0.00-0.02) K/uL Neut # (Auto) 7.36 H (1.4-6.5) K/uL Lymph # (Auto) 1.63 (1.2-3.4) K/uL [place] # (Auto) 0.78 H (0.11-0.59) K/uL Eos # (Auto) 0.53 H (0-0.5) K/uL Baso # (Auto) 0.03 (0-0.2) K/uL PT 11.5 (9.0-12.0) Seconds INR 1.1 (0.9-1.1) APTT 30.3 (21.0-31.0) Seconds PTT Ratio 1.1 VBG pH (7.36-7.41) VBG pCO2 (38-50) mmHg VBG pO2 mmHg VBG HCO3 mmol/L VBG O2 Saturation % VBG Base Excess mEq/L Barometric Pressure mm/Hg Sodium 142 (136-145) mmol/L Potassium 3.8 (3.5-5.1) mmol/L Chloride 102 (98-107) mmol/L Carbon Dioxide 32 (21-32) mmol/L Anion Gap 8.0 (3-11) BUN 31 H (7-18) mg/dl Creatinine 1.17 (0.6-1.4) mg/dl Est Cr Clr Drug Dosing 67.9 ml/min Est GFR ( Amer) 71.3 Est GFR (Non-Af Amer) 61.5 BUN/Creatinine Ratio 26.8 H (10-20) Glucose 211 H (70-99) mg/dl Lactate (0.4-2.0) mmol/L Calcium 8.9 (8.5-10.1) mg/dl Magnesium 2.2 (1.8-2.4) mg/dl Total Bilirubin 1.2 H (0.2-1) mg/dl Direct Bilirubin 0.3 H (0-0.2) mg/dl AST 17 (15-37) U/L ALT 26 (12-78) U/L Alkaline Phosphatase 145 H (45-117) U/L Troponin I < 0.015 (0-0.045) ng/ml NT-Pro-B Natriuret Pep 8066 H (0-900) pg/ml Total Protein 7.6 (6.4-8.2) gm/dl Albumin 3.1 L (3.4-5.0) gm/dl Lipase 303 (73-393) U/L Urine Color Urine Appearance (Clear) Urine pH (4.5-7.5) Ur Specific [place] (1.000-1.030) Urine Protein (Negative) Urine Glucose (UA) (Negative) Urine Ketones (Negative) Urine Blood (Negative) Urine Nitrite (Negative) Urine Bilirubin (Negative) Urine Urobilinogen (Negative) Ur Leukocyte Esterase (Negative) Urine WBC (Auto) (0-5) /hpf Urine RBC (Auto) (0-4) /hpf U Hyaline Cast (Auto) (0-5) /lpf U Epithel Cells (Auto) (0-5) /lpf Urine Bacteria (Auto) (Negative) 01/20/19 01/20/19 01/20/19 Range/Units 19:30 19:45 20:48 WBC (4.8-10.8) K/uL RBC (4.7-6.1) M/uL Hgb (14.0-18.0) g/dL Hct (42-52) % MCV (80-100) fL MCH (25-34) pg MCHC (32-36) g/dL RDW Std Deviation (36.4-46.3) fL RDW Coeff of Da (11.5-14.5) % Plt Count (130-400) K/uL MPV (7.4-10.4) fL Immature Gran % (Auto) % Neut % (Auto) % Lymph % (Auto) % [place] % (Auto) % Eos % (Auto) % Baso % (Auto) % Immature Gran # (Auto) (0.00-0.02) K/uL Neut # (Auto) (1.4-6.5) K/uL Lymph # (Auto) (1.2-3.4) K/uL [place] # (Auto) (0.11-0.59) K/uL Eos # (Auto) (0-0.5) K/uL Baso # (Auto) (0-0.2) K/uL PT (9.0-12.0) Seconds INR (0.9-1.1) APTT (21.0-31.0) Seconds PTT Ratio VBG pH 7.40 (7.36-7.41) VBG pCO2 56 H (38-50) mmHg VBG pO2 48 mmHg VBG HCO3 33 mmol/L VBG O2 Saturation 81.6 % VBG Base Excess 6.9 mEq/L Barometric Pressure 731.3 mm/Hg Sodium (136-145) mmol/L Potassium (3.5-5.1) mmol/L Chloride (98-107) mmol/L Carbon Dioxide (21-32) mmol/L Anion Gap (3-11) BUN (7-18) mg/dl Creatinine (0.6-1.4) mg/dl Est Cr Clr Drug Dosing ml/min Est GFR ( Amer) Est GFR (Non-Af Amer) BUN/Creatinine Ratio (10-20) Glucose (70-99) mg/dl Lactate 1.6 (0.4-2.0) mmol/L Calcium (8.5-10.1) mg/dl Magnesium (1.8-2.4) mg/dl Total Bilirubin (0.2-1) mg/dl Direct Bilirubin (0-0.2) mg/dl AST (15-37) U/L ALT (12-78) U/L Alkaline Phosphatase (45-117) U/L Troponin I (0-0.045) ng/ml NT-Pro-B Natriuret Pep (0-900) pg/ml Total Protein (6.4-8.2) gm/dl Albumin (3.4-5.0) gm/dl Lipase (73-393) U/L Urine Color Yellow Urine Appearance Cloudy A (Clear) Urine pH 5.0 (4.5-7.5) Ur Specific [place] 1.020 (1.000-1.030) Urine Protein 3+ H (Negative) Urine Glucose (UA) Negative (Negative) Urine Ketones Negative (Negative) Urine Blood 3+ H (Negative) Urine Nitrite Positive A (Negative) Urine Bilirubin Negative (Negative) Urine Urobilinogen Negative (Negative) Ur Leukocyte Esterase 2+ H (Negative) Urine WBC (Auto) >30 H (0-5) /hpf Urine RBC (Auto) >30 H (0-4) /hpf U Hyaline Cast (Auto) 5-10 H (0-5) /lpf U Epithel Cells (Auto) 5-10 H (0-5) /lpf Urine Bacteria (Auto) 4+ H (Negative) Imaging Data Radiologist's Impression: Radiology results as stated below per my review and the radiologist's interpretation: XR chest 1V portable CLINICAL HISTORY: Shortness of breath, weakness. Congestive heart failure. COMPARISON STUDY: 11/15/2018 FINDINGS: The cardiac and mediastinal contours remain stable. There is a left subclavian single chamber central venous pacemaker. There is radiographic evidence of congestive failure/fluid overload. There are small bilateral pleural effusions. Basilar opacities, likely represent[compressive atelectasis. IMPRESSION: Congestive failure with small bilateral pleural effusions with a ssociated basilar opacities, statistically atelectatic. Electronically signed by: Bill Isaacs M.D. 01/20/2019 7:40 PM ECG Data Attestation: I personally reviewed and interpreted this ECG as follows: Indication: SOB/dyspnea Rate (beats per minute): 120 Findings: + other (QRS 130, QTc 531, Bifascicular block noted); no ST depression, no ST elevation and no acute ischemic change Blood Pressure Blood Pressure Findings: Elevated blood pressure Blood Pressure Disposition: further management by hospitalist MDM Narrative Vital signs stable and a nasal cannula. The patients labs show a BNP of 8066. Given the patients hypoxia, elevation of BNP and findings of fluid overload on the chest x-ray, the patient will be placed on 40mg of Lasix. I discussed the patient's case with the wound and the hospitalist Dr. Wyatt and they have agreed to admit the patient for further management. Impression & Plan Hypoxia, UTI (urinary tract infection), CHF exacerbation Critical Care Time Critical Care Time: Yes Total Critical Care Time: 39 I have personally spent 39 minutes of critical care time in the direct management of this patient. This includes bedside care, interpretation of diagnostic studies, and testing, discussion with consultants, patient, and family members, and other required patient management activities. This 39 minutes is in excess of all separately billable procedures. Discharge Plan Visit Data Chief Complaint: Shortness of Breath/Dyspnea Stated Complaint: BLADDER INFECTION, WEAKNESS, INSOMNIA, CONFUSION ED Provider: Oc Wilhelm Discharge Problem: Hypoxia, UTI (urinary tract infection), CHF exacerbation Patient Disposition: Being Evaluated by Hospitalist Discharge Instructions Interventions: ED Discharge Assessment Last Done: 01/20/19 23:02 Forms Stand Alone Forms: [facility] [place] [facility] Prescriptions Prescriptions: No Action apixaban 5 mg tablet 5 mg PO BID RF: 0 lisinopril 40 mg tablet 40 mg PO DAILY RF: 0 methenamine hippurate 1 gram tablet 1 gm PO QPM RF: 0 baclofen 10 mg tablet 10 mg PO Q6H RF: 0 metformin 1,000 mg tablet 1,000 mg PO BID Qty: 30 RF: 2 multivitamin Tablet 1 tab PO DAILY RF: 0 latanoprost 0.005 % drops 1 drp OPB HS RF: 0 glipizide 10 mg Tablet 10 mg PO BID RF: 0 potassium chloride [Klor-Con M20] 20 mEq tablet,ER particles/crystals 20 meq PO BID RF: 0 brimonidine 0.2 % drops 1 drp OPB BID RF: 0 metoprolol tartrate [Lopressor] 50 mg tablet 50 mg PO BID RF: 0 furosemide [Lasix] 20 mg tablet 20 mg PO HS RF: 0 zolpidem [Ambien] 10 mg Tablet 10 mg PO HS RF: 0 sertraline [Zoloft] 50 mg tablet 50 mg PO DAILY RF: 0 diltiazem HCl [Cardizem LA] 240 mg tablet extended release 24 hr 240 mg PO DAILY RF: 0 PreserVision AREDS [id number] Tablet 1 tab PO BID RF: 0 furosemide [Lasix] 20 mg tablet 40 mg PO QAM RF: 0 Referrals Referrals: Jm Carrillo III, MD [Primary Care Provider] - Discharge Problem: UTI (urinary tract infection) Qualifiers: Urinary tract infection type: site unspecified Hematuria presence: without hematuria Qualified Code(s): N39.0 - Urinary tract infection, site not specified CHF exacerbation Qualifiers: Heart failure type: unspecified Qualified Code(s): I50.9 - Heart failure, unspecified The scribe's documentation has been prepared under my direction and personally reviewed by me in its entirety. I confirm that the note above accurately reflects all work, treatment, procedures, and medical decision making performed by me.
[2019-01-21] MEDS ORDERED: ACETAMINOPHEN 325 MG TAB PO PRN (00:17)
[2019-01-21] MEDS ORDERED: CARBOHYDRATES FOR HYPOGLYCEMIA PO PRN (00:30)
[2019-01-21] MEDS ORDERED: GLUCOSE 40% GEL 15 GM TUBE PO PRN (00:30)
[2019-01-21] MEDS ORDERED: GLUCOSE 10 TABS/TUBE PO PRN (00:30)
[2019-01-21] MEDS ORDERED: GLUCAGON FOR INJ 1 MG VIAL IM PRN (00:30)
[2019-01-21] MEDS ORDERED: DEXTROSE 50% 50 ML SYRINGE IV PRN (00:30)
[2019-01-21] MEDS: ZOLPIDEM TARTRATE 10 MG TAB PO SCH ×2 (01:15→20:51)
[2019-01-21] MEDS: BACLOFEN 10 MG TAB PO SCH ×5 (01:17→23:59)
[2019-01-21] MEDS: POTASSIUM CHLORIDE 20 MEQ TABCR PO SCH ×3 (01:17→20:44)
[2019-01-21] MEDS: METOPROLOL TARTRATE 50 MG TAB PO SCH ×3 (01:17→20:45)
[2019-01-21] MEDS: INSULIN ASPART 100 UNITS/ML 3 ML PEN SC SCH ×5 (01:18→20:46)
[2019-01-21 06:14] LABS: Basophils # (auto) 0.02 K/uL (0-0.2); Basophils % (auto) 0.2 %; Eosinophils % (auto) 3.6 %; Hematocrit (blood only) 42.1 % (42-52); Hemoglobin 12.9 g/dL (14.0-18.0); Immature Granulocytes # (auto) 0.02 K/uL (0.00-0.02); Immature Granulocytes % (auto) 0.2 %; Lymphocytes # (auto) 1.09 K/uL (1.2-3.4); Lymphocytes % (auto) 9.9 %; Mean Corpuscular Hgb Conc 30.6 g/dL (32-36); Mean Corpuscular Volume 82.9 fL (80-100); Monocytes # (auto) 0.75 K/uL (0.11-0.59); Monocytes % (auto) 6.8 %; Neutrophils # (auto) 8.68 K/uL (1.4-6.5); Neutrophils % (auto) 79.3 %; Platelet Count 259 K/uL (130-400); RDW Coefficient of Variation 17.5 % (11.5-14.5); RDW Standard Deviation 52.9 fL (36.4-46.3); Red Blood Count 5.08 M/uL (4.7-6.1); White Blood Count 10.96 K/uL (4.8-10.8)
[2019-01-21 06:44] LABS: Albumin Level 2.9 gm/dl (3.4-5.0); BUN Creatinine Ratio 26.7 (10-20); Calcium 8.6 mg/dl (8.5-10.1); Creatinine Clr Calc Pharmacy 72.9 ml/min; Est GFR (African American) 77.6; Potassium 3.6 mmol/L (3.5-5.1)
[2019-01-21 06:46] LABS: Albumin Globulin Ratio 0.7 (0.9-2); Bilirubin,Total 1.2 mg/dl (0.2-1); Globulin 4.2 gm/dl (2.5-4.0); Total Protein 7.1 gm/dl (6.4-8.2)
[2019-01-21] MEDS: dilTIAZem HCL 240 MG CAPCR PO SCH (08:04)
[2019-01-21] MEDS: LISINOPRIL 40 MG TAB PO SCH (08:04)
[2019-01-21] MEDS: SERTRALINE HCL 50 MG TABLET PO SCH (08:04)
[2019-01-21] MEDS: APIXABAN 5 MG TABLET PO SCH ×2 (08:04→20:45)
[2019-01-21] MEDS ORDERED: FUROSEMIDE 40 MG in SYRINGE 0 ML IV SCH (09:00)
[2019-01-21] MEDS ORDERED: BRIMONIDINE TART 0.2% OP SOLN PER DROP CHARGE OPB SCH (09:00)
[2019-01-21] MEDS ORDERED: COUGH DROP (SUGAR FREE) LOZ 24 LOZ/1 BOX BUCCAL STA (09:11)
[2019-01-21] MEDS: BRIMONIDINE TARTRATE 0.2% 5ML OPB SCH ×2 (11:42→20:43)
--- NOTE | 2019-01-21 14:03 | Family Medicine Progress Note ---
Date of Service January 21, 2019 Assessment & Plan (1) Hypoxia: Heart patient is 73-year-old man admitted for hypoxemic respiratory failure secondary to CHF exacerbation CHF exacerbation Initially presented hypoxemic wearing 3 L on nasal cannula [place] of 8060 Chest x-ray showing small pleural effusions and pulmonary edema Patient appears to be in high sodium diet including canned soup and chili and hot dogs prior to admission Treated with 80 mg IV Lasix last 24 hours has diuresed a net -1.8 L Patient was treated for CHF exacerbation in October of this year and weight at time of discharge was 96 kg currently at 101 kg we will try to shoot for around weight at discharge at last admission to know that we are close to dry weight Echo at previous admission showed preserved ejection fraction heart failure with concentric left ventricular hypertrophy We will continue to educate patient about diet modifications with CHF 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 Had not been getting his usual dose of baclofen and has increased muscle spasticity We will try to get patient up into wheelchair for more exercise Atrial fibrillation Patient with history of permanent atrial fibrillation Patient is on apixaban 5 mg daily for anticoagulation as well and diltiazem and metoprolol for rate control Patient's rate has been well controlled at present Patient also has a history of long pauses when on telemetry 2 admissions ago Pauses lasted as long as 6.5 seconds and pacemaker was placed at that time F/E/N: Heart healthy low-sodium diet DVT prophylaxis: On apixaban 5 mg we will continue Disposition: MedSurg (2) UTI (urinary tract infection): (3) CHF exacerbation: (4) Spastic paralysis: (5) Altered mental status: (6) CHF (congestive heart failure): (7) DVT prophylaxis: (8) Atrial fibrillation: (9) Congestive heart failure: (10) Chronic indwelling Coon catheter: (11) Artificial cardiac pacemaker: Supervising Physician Co-Signing Physician Notes I personally examined the patient and verified all howard points of history and exam, discussed case, and agree with decision making with Dr Cast. Feeling much better. Breathing much easier. Notes that he had some canned food and hot dogs. Likely the nidus for sodium mediated fluid retention. Vitals noted, in general he is awake and alert pleasant no distress. At the time we are talking his oxygen was partially out of his nose, his pulse ox was 96-97 at that time, we turned the oxygen off entirely, and he remained 93 to 94% lungs overall clear may be faint rales base left no other rales rhonchi or wheeze good effort. Skin shows no rashes no pallor or icterus. Acute on chronic diastolic CHF causing hypoxia present on admission treated with IV diuretics and likely incited by sodium intake. Continue diuresis, educated on sodium restriction. Stable for transfer to [facility], hopefully home tomorrow. Subjective Mr. Tran is resting comfortably this morning, he tells me that his shortness of breath is partially resolved and that his leg swelling has gone down markedly. He admits to me that he has had some canned soup and chilly as well as several hotdogs in the days before his admission. We discussed healthy eating habits and avoiding sodium and reading labels and he expresses understanding. Review of Systems Review of Systems: All systems reviewed & are unremarkable except as noted in HPI & below Physical Exam Constitutional: Calm comfortable well-appearing man lying in bed appears stated age Eyes: Pupils equal round reactive to light conjunctiva normal anicteric sclerae extraocular muscle movement intact Respiratory: Patient with normal respiratory effort, saturating well at room air as nasal cannula was hanging up near his right eye. No audible crackles rales or wheezes Cardiovascular: Regular rate regular rhythm. No murmurs rubs clicks or gallops Lower limb edema is present equal bilaterally Gastrointestinal (Abdomen): Abdomen soft and nontender large nontender 5 cm x 5 cm umbilical hernia that protrudes markedly from the abdomen Skin: Venous stasis changes bilaterally, left leg more erythematous than right Results & Data Vital Signs (Past 12 Hours) Vital Signs Temp Pulse Pulse Pulse Resp BP BP 01/21/19 13:06 36.6 C 68 18 128/70 01/21/19 11:16 36.6 C 77 18 134/81 01/21/19 08:00 84 01/21/19 07:12 36.3 C L 88 26 H 150/114 H 151/99 H 01/21/19 03:22 35.6 C L 78 16 156/91 H Pulse Ox 01/21/19 13:06 93 01/21/19 11:16 94 01/21/19 08:00 01/21/19 07:12 97 01/21/19 03:22 96 PG Care Time/CCT Total # of Minutes Spent Total Time Spent with Patient: Total time spent is greater than 50% in coordination of care (as documented) at patient's floor/unit and/or counseling patient: Resident Activity Tracking Resident Involvement: Resident Care Provided Care Provided: Adult Hospital Medicine (1) UTI (urinary tract infection) Hematuria presence: without hematuria Urinary tract infection type: site uns pecified Qualified Code(s): N39.0 - Urinary tract infection, site not specified (2) CHF exacerbation Heart failure type: unspecified Qualified Code(s): I50.9 - Heart failure, unspecified (3) Atrial fibrillation Atrial fibrillation type: chronic Qualified Code(s): I48.2 - Chronic atrial fibrillation (4) Congestive heart failure Heart failure chronicity: unspecified Heart failure type: unspecified Qualified Code(s): I50.9 - Heart failure, unspecified
[2019-01-22] MEDS: BACLOFEN 10 MG TAB PO SCH ×2 (05:32→12:54)
[2019-01-22 07:46] LABS: BUN Creatinine Ratio 27.7 (10-20); Calcium 8.7 mg/dl (8.5-10.1); Creatinine Clr Calc Pharmacy 73.1 ml/min; Est GFR (African American) 80.3; Est GFR (Non-African American) 69.3; Potassium 4.1 mmol/L (3.5-5.1)
[2019-01-22] MEDS ORDERED: FUROSEMIDE 40 MG TAB PO SCH (09:00)
[2019-01-22] MEDS: POTASSIUM CHLORIDE 20 MEQ TABCR PO SCH (09:04)
[2019-01-22] MEDS: APIXABAN 5 MG TABLET PO SCH (09:05)
[2019-01-22] MEDS: dilTIAZem HCL 240 MG CAPCR PO SCH (09:05)
[2019-01-22] MEDS: METOPROLOL TARTRATE 50 MG TAB PO SCH (09:05)
[2019-01-22] MEDS: SERTRALINE HCL 50 MG TABLET PO SCH (09:05)
[2019-01-22] MEDS: LISINOPRIL 40 MG TAB PO SCH (09:06)
[2019-01-22] MEDS: BRIMONIDINE TARTRATE 0.2% 5ML OPB SCH (09:06)
[2019-01-22] MEDS: INSULIN ASPART 100 UNITS/ML 3 ML PEN SC SCH ×2 (09:07→12:55)
--- NOTE | 2019-01-22 18:32 | Discharge Summary ---
Date of Service January 22, 2019 Admission HPI Per Admitting Provider 73 yo male with a history of atrial fibrillation, diastolic CHF with preserved LV function on daily lasix presents with acute hypoxic respiratory distress. The patient states he has become progressively SOB over the past 4 days. The patient is dyspneic at rest and relates orthopnea. States that he has been taking his m edications and has been avoiding salt. He denies chest pain. The patient denies n/v/d or blood in his stool. States that he lives alone and has family and home health checking in on him. He is wheelchair bound with a diagnosis of spastic paraplegia Admission Exam Per Admitting Provider Constitutional: + disheveled; no acute distress and + not healthy appearing Respiratory: + labored breathing; + abnormal respiratory effort, does not use accessory muscles and no nasal flaring Auscultation: + crackles and + rales; no wheezes Cardiovascular: Rate/Rhythm: + irregularly irregular Heart Sounds: no click, no murmur and no cardiac rub Vessels: + JVD Extremities: + edema (bl le +1) Gastrointestinal (Abdomen): normal bowel sounds, soft, nontender, no hepatosplenomegaly Musculoskeletal: no cyanosis or clubbing, extremities motor strength 5/5 Skin: erythematous left lower ext, scattered excoriations, no warmth, no pain Principal Diagnosis CHF exacerbation Discharge Exam Constitutional: Calm comfortable well-appearing man lying in bed appears stated age Eyes: Pupils equal round reactive to light conjunctiva normal anicteric sclerae extraocular muscle movement intact Respiratory: Patient with normal respiratory effort, saturating well at room air as nasal cannula was hanging up near his right eye. No audible crackles rales or wheezes Cardiovascular: Regular rate regular rhythm. No murmurs rubs clicks or gallops Lower limb edema is present equal bilaterally Gastrointestinal (Abdomen): Abdomen soft and nontender large nontender 5 cm x 5 cm umbilical hernia that protrudes markedly from the abdomen Skin: Venous stasis changes bilaterally, left leg more erythematous than right Discharge Data Allergies Allergy/AdvReac Type Severity Reaction Status Date / Time No Known Allergies Allergy Verified 11/28/18 13:46 Consultations 01/20/19 20:38 ED Decision to Admit Stat 01/21/19 00:17 Consult Case Management - Discharge Planning Routine Hospital Course (1) Hypoxia: Guanakito Tran is 73-year-old man admitted for hypoxemic respiratory failure secondary to CHF exacerbation CHF exacerbation Initially presented to [facility] ED hypoxemic requiring 3 L on nasal cannula with BNP of 8060. Chest x-ray showing small pleural effusions and pulmonary edema. Patient tells me he had a high sodium diet including canned soup and chili and hot dogs prior to admission. Treated with 80 mg IV Lasix on day 1 of admission and 40 mg IV day 2. His weight went from 101 kg to 95 which was about his discharge weight at last admission in October. At that time patient had Echo showing preserved ejection fraction heart failure with concentric left ventricular hypertrophy As patient returned to dry weight he no longer needed any supplemental O2 and was discharged home on room air As his exacerbation was caused by a high sodium intake I did not make any change s to home medication regime patient remains on 40 mg PO lasix in morning and 20 mg at night. We did our best to educate patient on sodium intake and reading labels for pre packaged foods and he appears to be understanding. Would recommend following up to make sure he is being adequately diuresed on current regimen and continue to educate patient on diet and lifestyle strategies for CHF. 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 Kept patient at home dose and he did well particularly when we got him up and seated in chair (2) UTI (urinary tract infection): (3) CHF exacerbation: (4) Spastic paralysis: (5) Altered mental status: (6) CHF (congestive heart failure): (7) DVT prophylaxis: (8) Atrial fibrillation: (9) Chronic indwelling Coon catheter: (10) Artificial cardiac pacemaker: Total Time Total Time Spent Total Time Spent (In Minutes): <30 Discharge Plan Discharge Items Patient Disposition: Home - Home Health Services Reason For Visit: ACUTE ON CHRONIC CHF Discharge Diagnosis: Congestive Heart Failure Discharge Goals: Improve disease control Activity: Resume your previous activity Non-emergency contact: Primary Care Provider and [employer] Room Attendant Call non-emergency contact if: you have any medication questions and your symptoms worsen Follow-up/Referrals: Jm Carrillo III, MD [Primary Care Provider] - 01/30/19 1:30 pm (Please, follow up with Dr. Carrillo on January 30 at 1:30 pm. *If you need to change this appointment, call the office at [phone].) Diet: Low Sodium (2gm) Addtl Provider Instructions: Mr. Tran, it was our pleasure to take care of you here [facility] for your congestive heart failure exacerbation. We evaluated you for your shortness of breath and found that it was likely due to increased fluid on the lungs from back up from the heart. We believe the reason this occurred is due to your recent increased sodium intake through canned soup chili and hot dogs. As we have explained to you it will be essential moving forward to limit your salt intake, a general goal that we have laid out is about 2000 mg of sodium per day and no more than 800 mg mg in any one sitting. When selecting prepackaged foods always check the label for serving size and sodium amount per serving. Below is a picture guide his process. Upon returning home please resume all of your current medications. if you have any further or worsening shortness of breath leg swelling chest pain or other concerning symptoms please return to medical care. If you have any questions about any of this please contact your primary care provider to discuss your treatment. Prescriptions: Continued apixaban 5 mg tablet 5 mg PO BID RF: 0 lisinopril 40 mg tablet 40 mg PO DAILY RF: 0 methenamine hippurate 1 gram tablet 1 gm PO QPM RF: 0 baclofen 10 mg tablet 10 mg PO Q6H RF: 0 metformin 1,000 mg tablet 1,000 mg PO BID Qty: 30 RF: 2 multivitamin Tablet 1 tab PO DAILY RF: 0 latanoprost 0.005 % drops 1 drp OPB HS RF: 0 glipizide 10 mg Tablet 10 mg PO BID RF: 0 potassium chloride [Klor-Con M20] 20 mEq tablet,ER particles/crystals 20 meq PO BID RF: 0 brimonidine 0.2 % drops 1 drp OPB BID RF: 0 metoprolol tartrate [Lopressor] 50 mg tablet 50 mg PO BID RF: 0 furosemide [Lasix] 20 mg tablet 20 mg PO HS RF: 0 zolpidem [Ambien] 10 mg Tablet 10 mg PO HS RF: 0 sertraline [Zoloft] 50 mg tablet 50 mg PO DAILY RF: 0 diltiazem HCl [Cardizem LA] 240 mg tablet extended release 24 hr 240 mg PO DAILY RF: 0 PreserVision AREDS 7,160-113-100 [id number] Tablet 1 tab PO BID RF: 0 furosemide [Lasix] 20 mg tablet 40 mg PO QAM RF: 0 Stand-Alone Forms: My [employer]/Other Patient Handouts: Tips Using Less Salt, Choices Low Salt, Heart Failure Diet Changes Discharge Orders: Discharge Order (Routine); Ordered 01/22/19 Ordered By: Gopi Cast Admission Data Admit Date/Time: 01/20/19 22:42 Attending Provider: Salvador Miller Admit Provider: Lele Lamas Primary Care Provider: Jm Carrillo III Other Providers: García Wyatt Service: Medical Other Interventions: Discharge Summary Assessment (RN) Last Done: 01/22/19 14:27 Pending Studies at Discharge: No DC Date/Time DO NOT enter until pt leaves facility: 01/22/19 16:58 Supervising Physician Co-Signing Physician Notes I personally examined the patient and verified all howard points of history and exam, discussed case, and agree with decision making with Dr Cast. Feeling much better. Breathing much easier. Feels up to going home Vitals noted, in general he is awake and alert pleasant no distress. Lungs clear to auscultation bilaterally no rales rhonchi or wheezes. Probably slightly diminished at the bases. No accessory muscle use good effort. Pulse ox is adequate on room air while we converse. Acute on chronic diastolic CHF causing hypoxia present on admission treated with IV diuretics and likely incited by sodium intake. Stable for home. Otherwise as above. Resident Activity Tracking Resident Involvement: Resident Care Provided Care Provided: Adult Hospital Medicine
--- NOTE | 2019-01-22 18:44 | Discharge Summary ---
Date of Service January 22, 2019 Admission HPI Per Admitting Provider 73 yo male with a history of atrial fibrillation, diastolic CHF with preserved LV function on daily lasix presents with acute hypoxic respiratory distress. The patient states he has become progressively SOB over the past 4 days. The patient is dyspneic at rest and relates orthopnea. States that he has been taking his m edications and has been avoiding salt. He denies chest pain. The patient denies n/v/d or blood in his stool. States that he lives alone and has family and home health checking in on him. He is wheelchair bound with a diagnosis of spastic paraplegia Principal Diagnosis CHF Discharge Data Allergies Allergy/AdvReac Type Severity Reaction Status Date / Time No Known Allergies Allergy Verified 11/28/18 13:46 Consultations 01/20/19 20:38 ED Decision to Admit Stat 01/21/19 00:17 Consult Case Management - Discharge Planning Routine Total Time Total Time Spent Total Time Spent (In Minutes): <30, uncertain if i entered code on dr madrid's dc summary, hence duplicate with this one Discharge Plan Discharge Items Patient Disposition: Home - Home Health Services Reason For Visit: ACUTE ON CHRONIC CHF Discharge Diagnosis: Congestive Heart Failure Discharge Goals: Improve disease control Activity: Resume your previous activity Non-emergency contact: Primary Care Provider and Yeast Maker Call non-emergency contact if: you have any medication questions and your symptoms worsen Follow-up/Referrals: Jm Carrillo III, MD [Primary Care Provider] - 01/30/19 1:30 pm (Please, follow up with Dr. Carrillo on January 30 at 1:30 pm. *If you need to change this appointment, call the office at [phone].) Diet: Low Sodium (2gm) Addtl Provider Instructions: Mr. Tran, it was our pleasure to take care of you here [facility] for your congestive heart failure exacerbation. We evaluated you for your shortness of breath and found that it was likely due to increased fluid on the lungs from back up from the heart. We believe the reason this occurred is due to your recent increased sodium intake through canned soup chili and hot dogs. As we have explained to you it will be essential moving forward to limit your salt intake, a general goal that we have laid out is about 2000 mg of sodium per day and no more than 800 mg mg in any one sitting. When selecting prepackaged foods always check the label for serving size and sodium amount per serving. Below is a picture guide his process. Upon returning home please resume all of your current medications. if you have any further or worsening shortness of breath leg swelling chest pain or other concerning symptoms please return to medical care. If you have any questions about any of this please contact your primary care provider to discuss your treatment. Prescriptions: Continued apixaban 5 mg tablet 5 mg PO BID RF: 0 lisinopril 40 mg tablet 40 mg PO DAILY RF: 0 methenamine hippurate 1 gram tablet 1 gm PO QPM RF: 0 baclofen 10 mg tablet 10 mg PO Q6H RF: 0 metformin 1,000 mg tablet 1,000 mg PO BID Qty: 30 RF: 2 multivitamin Tablet 1 tab PO DAILY RF: 0 latanoprost 0.005 % drops 1 drp OPB HS RF: 0 glipizide 10 mg Tablet 10 mg PO BID RF: 0 potassium chloride [Klor-Con M20] 20 mEq tablet,ER particles/crystals 20 meq PO BID RF: 0 brimonidine 0.2 % drops 1 drp OPB BID RF: 0 metoprolol tartrate [Lopressor] 50 mg tablet 50 mg PO BID RF: 0 furosemide [Lasix] 20 mg tablet 20 mg PO HS RF: 0 zolpidem [Ambien] 10 mg Tablet 10 mg PO HS RF: 0 sertraline [Zoloft] 50 mg tablet 50 mg PO DAILY RF: 0 diltiazem HCl [Cardizem LA] 240 mg tablet extended release 24 hr 240 mg PO DAILY RF: 0 PreserVision AREDS 7,160-113-100 [id number] Tablet 1 tab PO BID RF: 0 furosemide [Lasix] 20 mg tablet 40 mg PO QAM RF: 0 Stand-Alone Forms: My [facility] [employer]/Other Patient Handouts: Tips Using Less Salt, Choices Low Salt, Heart Failure Diet Changes Discharge Orders: Discharge Order (Routine); Ordered 01/22/19 Ordered By: Gopi Madrid Admission Data Admit Date/Time: 01/20/19 22:42 Attending Provider: Salvador Miller Admit Provider: Lele Lamas Primary Care Provider: Jm Carrillo III Other Providers: Kedem,García Service: Medical Other Interventions: Discharge Summary Assessment (RN) Last Done: 01/22/19 14:27 Pending Studies at Discharge: No DC Date/Time DO NOT enter until pt leaves facility: 01/22/19 16:58
== END 2019-01-22 16:58 | disposition home health service (06) | DRG 291 ==
LOC: ED 18:58 → SUATTDRO 22:42 → 2S 22:42 → 3W 01-21 13:05

== ENCOUNTER 2019-05-04 12:29 | Inpatient (IN) ==
[2019-05-04] MEDS ORDERED: GELATIN SPONGE 12-7MM ONE (12:55)
[2019-05-04 13:28] LABS: Basophils # (auto) 0.02 K/uL (0-0.2); Basophils % (auto) 0.1 %; Eosinophils # (auto) 0.34 K/uL (0-0.5); Eosinophils % (auto) 2.3 %; Hematocrit (blood only) 41.2 % (42-52); Hemoglobin 13.1 g/dL (14.0-18.0); Immature Granulocytes # (auto) 0.03 K/uL (0.00-0.02); Immature Granulocytes % (auto) 0.2 %; Lymphocytes # (auto) 1.04 K/uL (1.2-3.4); Lymphocytes % (auto) 7.1 %; Mean Corpuscular Hemoglobin 26.2 pg (25-34); Mean Corpuscular Hgb Conc 31.8 g/dL (32-36); Mean Corpuscular Volume 82.4 fL (80-100); Mean Platelet Volume 10.7 fL (7.4-10.4); Monocytes # (auto) 1.07 K/uL (0.11-0.59); Monocytes % (auto) 7.3 %; Neutrophils # (auto) 12.21 K/uL (1.4-6.5); Platelet Count 355 K/uL (130-400); RDW Coefficient of Variation 17.4 % (11.5-14.5); RDW Standard Deviation 51.7 fL (36.4-46.3); White Blood Count 14.71 K/uL (4.8-10.8)
[2019-05-04 13:44] LABS: Alanine Aminotransferase 19 U/L (12-78); Albumin Level 2.9 gm/dl (3.4-5.0); Aspartate Aminotransferase 16 U/L (15-37); BUN Creatinine Ratio 33.5 (10-20); Blood Urea Nitrogen 48 mg/dl (7-18); Calcium 9.1 mg/dl (8.5-10.1); Carbon Dioxide 32 mmol/L (21-32); Chloride 101 mmol/L (98-107); Est GFR (African American) 56.4; Est GFR (Non-African American) 48.7; Glucose 206 mg/dl (70-99); Magnesium 2.1 mg/dl (1.8-2.4); Potassium 4.5 mmol/L (3.5-5.1); Sodium 140 mmol/L (136-145)
[2019-05-04 13:49] LABS: Albumin Globulin Ratio 0.7 (0.9-2); Alkaline Phosphatase 128 U/L (45-117); Bilirubin,Total 1.4 mg/dl (0.2-1); Globulin 4.2 gm/dl (2.5-4.0); NT Pro B Type Natriuretic Pept 9934 pg/ml (0-900); Total Protein 7.1 gm/dl (6.4-8.2); Troponin I 0.024 ng/ml (0-0.045)
[2019-05-04 13:52] LABS: INR 1.3 (0.9-1.1); Partial Thromboplastin Ratio 1.3; Prothrombin Time 13.2 Seconds (9.0-12.0)
--- NOTE | 2019-05-04 13:52 | XRay Report ---
XR chest 1V portable CLINICAL HISTORY: 73 years-old Male presenting with Dyspnea. TECHNIQUE: Portable upright AP view of the chest was obtained. COMPARISON: 01/20/2019. FINDINGS: Left subclavian pacer with single lead to the right ventricular apex. Atherosclerosis of the aortic a rch. Cardiac silhouette mildly enlarged. Mild pulmonary vascular prominence similar to prior. Bronchi al wall cuffing and interstitial prominence. Extensive bibasilar opacities due to small to moderate b ilateral pleural effusions and limited aeration of the lung bases. No pneumothorax. Degenerative cui ges of the thoracic spine. Upper abdomen normal. IMPRESSION: 1. Cardiomegaly with volume overload and congestive change. 2. Small to moderate bilateral pleural effusions and extensive bibasilar atelectasis. 3. Pulmonary edema is not excluded. Electronically signed by: Dwight Torres M.D. 05/04/2019 1:50 PM
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
[2019-05-04] MEDS ORDERED: FUROSEMIDE 40 MG/4 ML VIAL IV STA (14:14)
[2019-05-04] MEDS ORDERED: CEFAZOLIN 1000MG 1,000 MG/7.5 ML SYR IV STA (14:43)
--- NOTE | 2019-05-04 14:57 | History & Physical Report ---
Date of Service May 04, 2019 Assessment & Plan (1) CHF exacerbation: - Admit to [facility] [place] with telemetry - CXR reviewed showing cardiomegaly with volume overload and congestive change. Small to moderate bilateral pleural effusions and extensive bibasilar atelectasis. Pulmonary edema is not excluded. - Pro-NT-BNP =9934 - Trend troponin, initial was negative 0.024 - Daily weights, strict I's and O's, heart healthy diet, fluid restriction of 1500 mL daily - Last echo completed 11/13/2018 showing mild concentric LVH, normal systolic function, left atrium severely dilated, right atrium mildly dilated, possible aortic stenosis, and moderate mitral stenosis-we will repeat echo during this admission stay - Consult CHF clinic - IV Lasix administered in the ER, will give another dose of IV 40 mg dose this evening followed by twice daily dosing. Holding home Lasix of 40 mg PO QAM and 20 mg PO QPM. Coon in place. - Noted increased Cr of 1.42 compared to baseline of ~1.0, likely increased secondary to hypervolemic state and will improve with diuresis. (2) A-fib: -EKG reviewed, currently in A. fib, rate controlled -Holding Eliquis for right great toe fracture, possible surgical procedure, Ortho has been consulted (3) Shortness of breath: -Secondary to CHF exacerbation as above -Continue supplemental O2 as needed, currently on 2 L, does not require at home (4) Artificial cardiac pacemaker: -Was evaluated during earlier hospital admission this year, August 29, 2018 which showed it had 16.2 years remaining longevity at that time -Follows with Dr. Arango as outpatient (5) Essential (primary) hypertension: -Continue metoprolol tartrate 75 mg BID, holding lisinopril 40 mg with high dose lasix (6) Open fracture of toe: -Ortho consult placed, will hold anticoagulation including aspirin and Eliquis at this time -Check a.m. CBC, current hemoglobin = 13, follow with a.m. labs -Wound consult for other lower extremity wounds -A.m. PT/INR -Xray reviewed: 1. Nondisplaced fracture of the lateral base of the distal phalanx of the first toe at the interphalangeal joint. 2. Soft tissue wound at the first toe. 3. Soft tissue contusion of the dorsum of the foot. (7) Diabetes mellitus: -Last A1c was 7.31 August 2018, repeat with a.m. 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 History of Present Illness Primary Care Provider: Jm Carrillo MD This is a 73 yo M with PMHx of Chronic diastolic CHF, atrial fib on Eliquis, cardiac pacemaker, HTN, DM type II, spastic paraplegia, chronic indwelling catheter, depression, anxiety, umbilical hernia. He presents due to open foot wound and difficulty breathing. Patient notes that he has been having worsening shortness of breath for several days now, and that it is actually hard for him to speak without becoming short of breath. He does not use chronic supplemental O2 at home nor CPAP at night. Patient is unsure of his dry weight, but notes that swelling in his lower extremities is much worse than normal. He admits to orthopnea, must sleep in a reclining chair which has worsened over the last few days as well. His other major complaint today is that he was on his electric scooter cmoving forward, when his foot became wedged in between a piece of furniture and was unable to stop and led to the right great toe open fracture as reviewed on imaging. He denies any pain currently. Patient lives at home alone and functions independently. He reports having Medicaid home health in his home several days per week. Allergies Allergy/AdvReac Type Severity Reaction Status Date / Time No Known Allergies Allergy Verified 05/04/19 14:18 Home Medications Home Medications Medication Instructions Recorded Confirmed Type apixaban 5 mg tablet 5 mg PO BID 02/18/18 05/04/19 History lisinopril 40 mg tablet 40 mg PO QAM 02/18/18 05/04/19 History methenamine hippurate 1 gram tablet 1 gm PO QPM tab 02/18/18 05/04/19 History baclofen 10 mg tablet 10 mg PO QID tab 11/28/18 05/04/19 History metformin 1,000 mg tablet 1,000 mg PO BID #30 tab 11/28/18 05/04/19 Rx metoprolol tartrate [Lopressor] 75 mg PO BID 01/20/19 05/04/19 History multivitamin 1 tab PO QAM 01/20/19 05/04/19 History potassium chloride [Klor-Con M20] 40 meq PO QAM 01/20/19 05/04/19 History sertraline [Zoloft] 100 mg PO DAILY@1300 01/20/19 05/04/19 History furosemide 20 mg tablet 20 mg PO PM tab 01/23/19 05/04/19 History furosemide 20 mg tablet 40 mg PO QAM tab 01/23/19 05/04/19 History zolpidem 10 mg tablet 10 mg PO HS PRN 01/28/19 05/04/19 History aspirin 81 mg PO QAM 05/04/19 05/04/19 History ondansetron 4 mg PO DAILY PRN 05/04/19 05/04/19 History Past Med/Surg History Medical History A-fib (Acute) Leg ulcer (Acute) Cellulitis (Chronic) Diabetes 1.5, managed as type 2 (Chronic) Glaucoma (Chronic) HTN (hypertension) (Chronic) Hydrocele (Chronic) Scrotal mass (Chronic) Sepsis (Chronic) Small intestine obstruction (Chronic) Spastic paralysis (Chronic) UTI (urinary tract infection) (Chronic) Urinary retention (Chronic) Acute diastolic heart failure Surgical History History of toe surgery (Chronic) S/P TURP (Chronic) Family History Other No significant family history Social History Preferred Language: Cambodian Communication Ability: Effective Cushion Mat Maker Required: No Beliefs That Will Affect Care: None Current Living Situation: Alone Other Information That Helps Us Care for You: No Feels Safe at Home: Yes Safety Concerns: Feels Safe At This Time Smoking Status: Former smoker Tobacco Type: cigarettes ; Cigarettes Per Day: about 45 years ago ; Second Hand Exposure: No ; Hx Alcohol Use: No Hx Substance Use: No Review of Systems Review of Systems: Constitutional: No fever, sweats or chills Eyes: + poor vision and chronic eye pain, No diplopia, no blurred vision ENT: normal hearing, no trouble swallowing Respiratory: No cough, sputum, + dyspnea at rest and with minimal ADLs Cardiovascular: No chest pain, tightness or palpitations Abdomen: No pain, nausea, vomiting, diarrhea or constipation Musculoskeletal: No joint pain, calf pain, +swelling and redness both lower extremities Neurologic: + Spastic paraplegia, +numbness/tingling, does not walk at baseline Psychiatric: + anxiety and depression on SSRI Skin: worsening redness and swelling in BLE, open Rt foot/great toe injury Physical Exam Physical Exam: General: awake, alert, no apparent distress Head: Normocephalic, atraumatic ENT: PERRL, EOMI, no pharyngeal exudate, mucous membranes dry Chest: + Diminished breath sounds + crackles at bases, on 2 L via NC, easily winded with speaking Cardiac: + Irregularly irregular, + ALDAIR, + JVD, normal peripheral pulses, 2+ edema in BLE Abdominal: NABS x 4 quadrants, + large umbilical hernia nonreducible, nondistended, soft, nontender to palpation, no rebound, guarding or tenderness Extremities: RLE erythematous up to knee, 2+ edema, multiple open leg wounds with serosanginous drainage, + bandage over R great toe d/t fracture, not opened secondary to difficulty with stopping bleed while on anticoagulants, LLE also with 2+ edema and erythema up to knee, multiple open leg wounds with serosanginous drainage. Psych: Normal mood and affect Neuro: AAO x 3, + spastic paralysis BLE, no other gross motor deficits, speech is clear Constitutional: WD/WN, vitals as above Eyes: normal visual brumfield by confrontation and + anicteric sclerae Neck: normal visual inspection and trachea midline Respiratory: normal respiratory effort and + labored breathing (with talking); no respiratory distress Auscultation: + crackles; no wheezes Cardiovascular: Rate/Rhythm: regular rate and regular rhythm Gastrointestinal (Abdomen): Inspection/Auscultation: abdomen not distended Percussion/Palpation: abdomen soft; abdomen nontender Musculoskeletal: Head/Neck/Chest: normocephalic and head atraumatic Neg for peripheral LE edema, + pedal pulses Skin: no rashes, warm and dry Neurologic: awake; not confused Speech / Cognition: + abnormal speech (speech impediment) Psychiatric: A+Ox3, euthymic affect Lymphatic: Exam as done by Nicole Mixon DO Results & Data Vital Signs (Past 12 Hours) Vital Signs Temp Pulse Pulse Resp BP BP Pulse Ox 05/04/19 14:26 89 24 92 05/04/19 14:25 81 24 88 L 05/04/19 14:01 89 21 152/86 H 91 05/04/19 12:31 36.3 C L 66 18 112/74 92 Diagnostic Findings XR chest 1V portable CLINICAL HISTORY: 73 years-old Male presenting with Dyspnea. TECHNIQUE: Portable upright AP view of the chest was obtained. COMPARISON: 01/20/2019. FINDINGS: Left subclavian pacer with single lead to the right ventricular apex. Atherosclerosis of the aortic arch. Cardiac silhouette mildly enlarged. Mild pulmonary vascular prominence similar to prior. Bronchial wall cuffing and interstitial prominence. Extensive bibasilar opacities due to small to moderate bilateral pleural effusions and limited aeration of the lung bases. No pneumothorax. Degenerative changes of the thoracic spine. Upper abdomen normal. IMPRESSION: 1. Cardiomegaly with volume overload and congestive change. 2. Small to moderate bilateral pleural effusions and extensive bibasilar atelectasis. 3. Pulmonary edema is not excluded. XR foot RT 2V CLINICAL HISTORY: 73 years-old Male presenting with avulsed tissue 1st toe injury. TECHNIQUE: Frontal, oblique, and lateral views of the right foot were obtained. COMPARISON: 05/07/2018. FINDINGS: Extensive soft tissue swelling along the dorsum of the midfoot-forefoot. There is a bandage overlying the distal right first toe. Irregularity of the soft tissues with soft tissue emphysema at the mid to distal first toe. A suspected soft tissue wound is present. Nondisplaced fracture of the base of the tuft of the distal phalanx along the lateral aspect. This is intra-articular. Mild degenerative changes at the first metatarsophalangeal joint. Osteopenia is suspected. Enthesophyte at the origin of the plantar fascia. Atherosclerosis. IMPRESSION: 1. Nondisplaced fracture of the lateral base of the distal phalanx of the first toe at the interphalangeal joint. 2. Soft tissue wound at the first toe. 3. Soft tissue contusion of the dorsum of the foot. ECG Additional Comments: 04-MAY-2019 13:21:17 [facility]-EDSTAT ROUTINE RETRIEVAL Poor data quality, interpretation may be adversely affected Atrial fibrillation Right bundle branch block Left posterior fascicular block Bifascicular block T wave abnormality, consider inferior ischemia Abnormal ECG When compared with ECG of 20-JAN-2019 19:11, Inverted T waves have replaced nonspecific T wave abnormality in Anterior leads 25mm/s 10mm/mV 150Hz 9.0.9 12SL 241 DEJAH: 10 Referred by: REFERRED SELF Unconfirmed Vent. rate 97 BPM IA interval * ms QRS duration 134 ms QT/QTc 438/556 ms P-R-T axes * 130 -42 Supervising Physician Co-Signing Physician Notes Pt seen and examined by me. Denies chest pain. States he is still somewhat SOB, but much better than [employer]. He associates his SOB with some anxiety over his current health issues. Tolerating PO without issue. Pt states he usually has baseline LE redness, but it is worse today. Pt states he may not have taken his pills correctly due to the issues with his foot pain. Agree with HPI/ROS as noted by PA See above for my exam in PE section Agree with plan as outlined above CHF exacerbation, possibly related to wrong medication dosing due to foot pain Lasix as noted Monitor R 1st metatarsal fracture s/p trauma. Open wound cefepime, ortho c/s Multiple superficial ulcerations on LE, WCC c/s pending PG Care Time/CCT Total # of Minutes Spent Total Time Spent with Patient: Total time spent is greater than 50% in coordination of care (as documented) at patient's floor/unit and/or counseling patient: (1) CHF exacerbation Heart failure type: unspecified Qualified Code(s): I50.9 - Heart failure, unspecified (2) Diabetes mellitus Diabetes mellitus complication status: with skin complications Diabetes mellitus buttermaker continuous churn insulin use: without buttermaker continuous churn use Diabetes mellitus type: type 2 (3) A-fib Atrial fibrillation type: unspecified Qualified Code(s): I48.91 - Unspecified atrial fibrillation (4) Open fracture of toe Encounter type: initial encounter Laterality: right Phalanx: unspecified phalanx Physeal involvement: unspecified Toe: great toe Qualified Code(s): S92.401B - Displaced unspecified fracture of right great toe, initial encounter for open fracture
--- NOTE | 2019-05-04 17:23 | Emergency Department Note ---
Entered by Adrianna Pressley acting as a scribe for History of Present Illness General Chief complaint: Foot Injury/Pain Stated complaint: SEVERE EDEMA IN LEGS, RIGHT FOOT INJURY Time Seen by Provider: 05/04/19 12:44 Source: patient History of Present Illness Onset (ago): day(s) 1 (1.5) Location: right (foot) Pain Consistency: + other (persistent) Maximum Pain Intensity: 6 Quality: + other (foot pain) Relieved By: not by other (gauze wrap) Exacerbated By: + movement Associated symptoms: + other (Right foot pain, swelling, bleeding) Treatments prior to arrival: other (gauze wrap) The patient is a 73 year old male with a past medial history of DM, A- fib, HTN, Spastic paralysis, Glaucoma and Heart failure who presents to the Emergency Department complaining of persistent right foot pain starting 1.5 days ago. The patient reports that he hit his right foot off of something but he is not sure what it was. He states that since then his right foot has been bleeding and he hasnt been able to stop it. He explains that when he tries to walk his foot pain worsens. He states that his right foot is more swollen than normal and is painful. He notes that he wrapped his right foot in gauze before coming to the hospital but that the blood soaked through this gauze. He adds that he is supposed to be taking Lasix but that he sometimes misses doses but that he regularly takes Eliquis for A-fib. The patient reports that he is slightly short of breath but that this is not new as he is normally short of breath. Home Medications Home Medications Medication Instructions Recorded Confirmed Type apixaban 5 mg tablet 5 mg PO BID 02/18/18 05/04/19 History lisinopril 40 mg tablet 40 mg PO QAM 02/18/18 05/04/19 History methenamine hippurate 1 gram tablet 1 gm PO QPM tab 02/18/18 05/04/19 History baclofen 10 mg tablet 10 mg PO QID tab 11/28/18 05/04/19 History metformin 1,000 mg tablet 1,000 mg PO BID #30 tab 11/28/18 05/04/19 Rx metoprolol tartrate [Lopressor] 75 mg PO BID 01/20/19 05/04/19 History multivitamin 1 tab PO QAM 01/20/19 05/04/19 History potassium chloride [Klor-Con M20] 40 meq PO QAM 01/20/19 05/04/19 History sertraline [Zoloft] 100 mg PO DAILY@1300 01/20/19 05/04/19 History furosemide 20 mg tablet 20 mg PO PM tab 01/23/19 05/04/19 History furosemide 20 mg tablet 40 mg PO QAM tab 01/23/19 05/04/19 History zolpidem 10 mg tablet 10 mg PO HS PRN 01/28/19 05/04/19 History aspirin 81 mg PO QAM 05/04/19 05/04/19 History ondansetron 4 mg PO DAILY PRN 05/04/19 05/04/19 History Allergies Allergy/AdvReac Type Severity Reaction Status Date / Time No Known Allergies Allergy Verified 05/04/19 14:18 Past Med/Surg History Medical History A-fib (Acute) Leg ulcer (Acute) Cellulitis (Chronic) Diabetes 1.5, managed as type 2 (Chronic) Glaucoma (Chronic) HTN (hypertension) (Chronic) Hydrocele (Chronic) Scrotal mass (Chronic) Sepsis (Chronic) Small intestine obstruction (Chronic) Spastic paralysis (Chronic) UTI (urinary tract infection) (Chronic) Urinary retention (Chronic) Acute diastolic heart failure Surgical History History of toe surgery (Chronic) S/P TURP (Chronic) Family History Other No significant family history Social History Preferred Language: Ethiopian Communication Ability: Effective Specialist Managers Required: No Beliefs That Will Affect Care: None Current Living Situation: Alone Other Information That Helps Us Care for You: No Feels Safe at Home: Yes Safety Concerns: Feels Safe At This Time Smoking Status: Former smoker Tobacco Type: cigarettes ; Cigarettes Per Day: about 45 years ago ; Second Hand Exposure: No ; Hx Alcohol Use: No Hx Substance Use: No Review of Systems See HPI for pertinent positives & negatives. and A total of 10 systems reviewed and were otherwise negative Physical Exam Vital Signs Vital Signs - 24 hr 05/04/19 12:31 05/04/19 14:00 05/04/19 14:01 Temperature 36.3 C L Temperature Source Oral Sepsis Recent Fever Within 48 Hours No Sepsis New/Unexplained Change in Mental Status No Sepsis Action Taken by Nursing No Action Required Pulse Rate 66 100 H Pulse Rate [Apical] 89 Pulse Rate from SpO2 Sensor Pulse Rhythm [Apical] Irregular Respiratory Rate 18 15 21 Respiratory Effort / Characteristics Non-Labored Non-Labored Spontaneous Respiratory Depth Normal Normal Respiratory Pattern Regular Blood Pressure 112/74 152/86 H Blood Pressure [Right Arm] 152/86 H Blood Pressure Mean 86 108 Blood Pressure Mean [Right Arm] 108 Pulse Oximetry 92 91 Oxygen Delivery Method Room Air Room Air Room Air Oxygen Flow Rate 05/04/19 14:05 05/04/19 14:10 05/04/19 14:20 Temperature Temperature Source Sepsis Recent Fever Within 48 Hours Sepsis New/Unexplained Change in Mental Status Sepsis Action Taken by Nursing Pulse Rate 105 H 82 112 H Pulse Rate [Apical] Pulse Rate from SpO2 Sensor 72 72 Pulse Rhythm [Apical] Respiratory Rate 22 15 23 Respiratory Effort / Characteristics Respiratory Depth Respiratory Pattern Blood Pressure Blood Pressure [Right Arm] Blood Pressure Mean Blood Pressure Mean [Right Arm] Pulse Oximetry 87 L 90 Oxygen Delivery Method Room Air Room Air Room Air Oxygen Flow Rate 05/04/19 14:25 05/04/19 14:26 05/04/19 14:30 Temperature Temperature Source Sepsis Recent Fever Within 48 Hours Sepsis New/Unexplained Change in Mental Status Sepsis Action Taken by Nursing Pulse Rate 88 Pulse Rate [Apical] 81 89 Pulse Rate from SpO2 Sensor 92 H Pulse Rhythm [Apical] Irregular Irregular Respiratory Rate 24 24 20 Respiratory Effort / Characteristics Spontaneous Respiratory Depth Respiratory Pattern Regular Blood Pressure Blood Pressure [Right Arm] Blood Pressure Mean Blood Pressure Mean [Right Arm] Pulse Oximetry 88 L 92 86 L Oxygen Delivery Method Room Air Nasal Cannula Room Air Oxygen Flow Rate 3 05/04/19 14:31 05/04/19 14:40 05/04/19 14:50 Temperature Temperature Source Sepsis Recent Fever Within 48 Hours Sepsis New/Unexplained Change in Mental Status Sepsis Action Taken by Nursing Pulse Rate 93 H 92 H 93 H Pulse Rate [Apical] Pulse Rate from SpO2 Sensor 83 104 H 95 H Pulse Rhythm [Apical] Respiratory Rate 20 17 17 Respiratory Effort / Characteristics Respiratory Depth Respiratory Pattern Blood Pressure 165/120 H Blood Pressure [Right Arm] Blood Pressure Mean 135 Blood Pressure Mean [Right Arm] Pulse Oximetry 89 L 89 L 94 Oxygen Delivery Method Room Air Room Air Nasal Cannula Oxygen Flow Rate 2 05/04/19 15:00 05/04/19 15:02 05/04/19 15:03 Temperature Temperature Source Sepsis Recent Fever Within 48 Hours Sepsis New/Unexplained Change in Mental Status Sepsis Action Taken by Nursing Pulse Rate 87 87 93 H Pulse Rate [Apical] Pulse Rate from SpO2 Sensor 100 H 103 H Pulse Rhythm [Apical] Respiratory Rate 13 25 H 17 Respiratory Effort / Characteristics Respiratory Depth Respiratory Pattern Blood Pressure 156/75 H Blood Pressure [Right Arm] Blood Pressure Mean 102 Blood Pressure Mean [Right Arm] Pulse Oximetry 94 Oxygen Delivery Method Nasal Cannula Nasal Cannula Nasal Cannula Oxygen Flow Rate 2 2 2 05/04/19 15:10 05/04/19 15:20 Temperature Temperature Source Sepsis Recent Fever Within 48 Hours Sepsis New/Unexplained Change in Mental Status Sepsis Action Taken by Nursing Pulse Rate 87 94 H Pulse Rate [Apical] Pulse Rate from SpO2 Sensor 83 99 H Pulse Rhythm [Apical] Respiratory Rate 24 23 Respiratory Effort / Characteristics Respiratory Depth Respiratory Pattern Blood Pressure Blood Pressure [Right Arm] Blood Pressure Mean Blood Pressure Mean [Right Arm] Pulse Oximetry 95 91 Oxygen Delivery Method Nasal Cannula Nasal Cannula Oxygen Flow Rate 2 2 GENERAL: Well appearing, well nourished, NAD, non-toxic. EYE EXAM: Normal conjunctiva. PERRL, no anisocoria and EOM's grossly intact w/o pain. OROPHARYNX: Moist mucus membranes. Grossly normal dentition. NECK: Supple, no nuchal rigidity, no adenopathy, non-tender. No signs of meningismus. LUNGS: Clear to auscultation. Normal chest wall mechanics. HEART: NSR, no MRG. ABDOMEN: Reducible umbilical hernia. Abdomen soft, non-tender, normo-active bowel sounds, no masses, no rebound or guarding. BACK: No CVA TTP. SKIN: No rashes and no bruising. UPPER EXTREMITIES: Upper extremities are grossly normal. LOWER EXTREMITIES: 3 to 4+ pitting edema. Mild redness b/l LEs. Open wound over lateral aspect of the right first digit. No calf pain. Multiple non healing wounds b/l LEs, no purulent drainage. NEURO EXAM: A&O x3, cranial nerves II-XII grossly intact, normal speech, moves all 4 extremities on command w/o issue. Course 1247: The patient was evaluated in room A2, and a complete history and physical examination were performed. 1431: I reevaluated the patient at this time. 1452: I discussed the patient's case with Dr. Mixon - [facility] hospitalist. She will evaluate the patient for further management. 1500: I updated the patient at this time. Administered Medications Discontinued Medications Furosemide (Lasix) 40 mg IV NOW STA Stop: 05/04/19 14:15 Last Admin: 05/04/19 14:17 Dose: 40 mg Documented by: [id number] Gelatin (Surgifoam Sponge 12-7mm (Small)) Confirm Administered Dose 2 ea .ROUTE .STK-MED ONE Stop: 05/04/19 12:56 Last Admin: 05/04/19 13:00 Dose: 2 ea Documented by: [id number] Cefazolin Sodium (Ancef 1000mg) 1,000 mg in 7.5 mls @ 2.5 mls/min IV NOW STA Stop: 05/04/19 14:45 Last Admin: 05/04/19 15:01 Dose: 2.5 mls/min Documented by: [id number] Medical Decision Making Differential Diagnosis Differentials include laceration, sprain, fracture, strain, CHF, pneumonia and medication non-compliance amongst others. Medical Records Attestation: I reviewed the patient's medical records. Home Medications Current Medication List: was personally reviewed by me Laboratory Data Attestation: I reviewed the patient's lab results. Result diagrams: 05/04/19 13:15 05/04/19 13:15 Lab Results 05/04/19 05/04/19 05/04/19 Range/Units 13:15 13:15 13:15 WBC 14.71 H (4.8-10.8) K/uL RBC 5.00 (4.7-6.1) M/uL Hgb 13.1 L (14.0-18.0) g/dL Hct 41.2 L (42-52) % MCV 82.4 (80-100) fL MCH 26.2 (25-34) pg MCHC 31.8 L (32-36) g/dL RDW Std Deviation 51.7 H (36.4-46.3) fL RDW Coeff of Da 17.4 H (11.5-14.5) % Plt Count 355 (130-400) K/uL MPV 10.7 H (7.4-10.4) fL Immature Gran % (Auto) 0.2 % Neut % (Auto) 83.0 % Lymph % (Auto) 7.1 % [place] % (Auto) 7.3 % Eos % (Auto) 2.3 % Baso % (Auto) 0.1 % Immature Gran # (Auto) 0.03 H (0.00-0.02) K/uL Neut # (Auto) 12.21 H (1.4-6.5) K/uL Lymph # (Auto) 1.04 L (1.2-3.4) K/uL [place] # (Auto) 1.07 H (0.11-0.59) K/uL Eos # (Auto) 0.34 (0-0.5) K/uL Baso # (Auto) 0.02 (0-0.2) K/uL PT 13.2 H (9.0-12.0) Seconds INR 1.3 H (0.9-1.1) APTT 35.0 H (21.0-31.0) Seconds PTT Ratio 1.3 Sodium 140 (136-145) mmol/L Potassium 4.5 (3.5-5.1) mmol/L Chloride 101 (98-107) mmol/L Carbon Dioxide 32 (21-32) mmol/L Anion Gap 7.0 (3-11) BUN 48 H (7-18) mg/dl Creatinine 1.42 H (0.6-1.4) mg/dl Est Cr Clr Drug Dosing Not Reportable Est GFR ( Amer) 56.4 Est GFR (Non-Af Amer) 48.7 BUN/Creatinine Ratio 33.5 H (10-20) Glucose 206 H (70-99) mg/dl Calcium 9.1 (8.5-10.1) mg/dl Magnesium 2.1 (1.8-2.4) mg/dl Total Bilirubin 1.4 H (0.2-1) mg/dl AST 16 (15-37) U/L ALT 19 (12-78) U/L Alkaline Phosphatase 128 H (45-117) U/L Troponin I 0.024 (0-0.045) ng/ml NT-Pro-B Natriuret Pep 9934 H (0-900) pg/ml Total Protein 7.1 (6.4-8.2) gm/dl Albumin 2.9 L (3.4-5.0) gm/dl Globulin 4.2 H (2.5-4.0) gm/dl Albumin/Globulin Ratio 0.7 L (0.9-2) Imaging Data Radiologist's Impression: Radiology results as stated below per my review and the radiologist's interpretation: XR chest 1V portable CLINICAL HISTORY: 73 years-old Male presenting with Dyspnea. TECHNIQUE: Portable upright AP view of the chest was obtained. COMPARISON: 01/20/2019. FINDINGS: Left subclavian pacer with single lead to the right ventricular apex. Atherosclerosis of the aortic arch. Cardiac silhouette mildly enlarged. Mild pulmonary vascular prominence similar to prior. Bronchial wall cuffing and interstitial prominence. Extensive bibasilar opacities due to small to moderate bilateral pleural effusions and limited aeration of the lung bases. No pneumothorax. Degenerative changes of the thoracic spine. Upper abdomen normal. IMPRESSION: 1. Cardiomegaly with volume overload and congestive change. 2. Small to moderate bilateral pleural effusions and extensive bibasilar atelectasis. 3. Pulmonary edema is not excluded. Electronically signed by: Dwight Torres M.D. 05/04/2019 1:50 PM XR foot RT 2V CLINICAL HISTORY: 73 years-old Male presenting with avulsed tissue 1st toe injury. TECHNIQUE: Frontal, oblique, and lateral views of the right foot were obtained. COMPARISON: 05/07/2018. FINDINGS: Extensive soft tissue swelling along the dorsum of the midfoot-forefoot. There is a bandage overlying the distal right first toe. Irregularity of the soft tissues with soft tissue emphysema at the mid to distal first toe. A suspected soft tissue wound is present. Nondisplaced fracture of the base of the tuft of the distal phalanx along the lateral aspect. This is intra-articular. Mild degenerative changes at the first metatarsophalangeal joint. Osteopenia is suspected. Enthesophyte at the origin of the plantar fascia. Atherosclerosis. IMPRESSION: 1. Nondisplaced fracture of the lateral base of the distal phalanx of the first toe at the interphalangeal joint. 2. Soft tissue wound at the first toe. 3. Soft tissue contusion of the dorsum of the foot. Electronically signed by: Dwight Torres M.D. 05/04/2019 1:52 PM ECG Data Attestation: I personally reviewed and interpreted this ECG as follows: Indication: + SOB/dyspnea and + other (right foot pain/swelling/bleeding) Rate (beats per minute): 97 Rhythm: + atrial fibrillation ECG Intervals/blocks: + Right Bundle branch block ECG [place]: + Right axis deviation ECG ST segments: + T-wave inversions (TWI inferiorly and anteriorly.) Comparison ECG Date: from (01/20/19) Change: the following changes noted (Rate is improved. Morphology unchanged. ) Blood Pressure Blood Pressure Findings: Elevated blood pressure Blood Pressure Disposition: further management by hospitalist ANNAMARIE Sage The patient is a 73 year old male with a past medial history of DM, A- fib, HTN, Spastic paralysis, Glaucoma and Heart failure who presents to the [facility] Department complaining of persistent right foot pain starting 1.5 days ago. Patient was seen and evaluated the bedside. The patient does presents with a complaint of some bleeding from his right foot. The patient did strike the area on something yesterday. The patient's toes and bleeding over the last day and a half. The patient does take antiplatelet medication for history of A. fib. The patient also does note that he has worsening lower extremity edema and associated dose of breath. The patient did a blood work completed. I did use some Gelfoam as well as a compression bandage and using Covan, gauze, and an Ryan wrap. The patient's initial wound dressing was grossly bloody. Patient did have plain film completed along with blood work and EKG and troponin. Patient does have mild white count of 14. Given patient's lower extremities redness and associated fracture of the right great toe believe the patient will benefit from Ancef. I do not believe that the wound truly involves the bone but he does have a large area of avulsed skin that was unable to be repaired at the bedside and thus why the compression bandage was placed. Patient does have a normal hemoglobin at this time. The patient's coags are slightly elevated. Patient does have some mild KASSANDRA with an elevated BUN and creatinine compared to baseline. Patient's chest x-ray does show pleural effusions. The patient does have an element of lower extremity weakness which is chronic. Given that the patient lives by himself I believe that the patient would not do very well especially given the multiple nonhealing wounds and cellulitis along with the questionable open fracture of his right great toe. I did speak the on-call hospitalist agreed to further evaluate treat the patient. Patient was admitted to the medicine service. Impression & Plan A-fib, Pleural effusion, Laceration of toe, Shortness of breath, Fracture of toe of right foot Discharge Plan Visit Data Chief Complaint: Foot Injury/Pain Stated Complaint: SEVERE EDEMA IN LEGS, RIGHT FOOT INJURY ED Provider: Braden Tucker Discharge Problem: A-fib, Pleural effusion, Laceration of toe, Shortness of breath, Fracture of toe of right foot Patient Disposition: Being Evaluated by Hospitalist Discharge Instructions Interventions: ED Discharge Assessment Last Done: 05/04/19 16:33 Discharge Problem: A-fib Qualifiers: Atrial fibrillation type: unspecified Qualified Code(s): I48.91 - Unspecified atrial fibrillation Laceration of toe Qualifiers: Encounter type: initial encounter Toe: great toe Damage to nail status: unspecified Foreign body presence: unspecified Laterality: right Qualified Code(s): S91.111A - Laceration without foreign body of right great toe without damage to nail, initial encounter Fracture of toe of right foot Qualifiers: Encounter type: initial encounter Toe: great toe Fracture type: open Phalanx: distal Fracture alignment: nondisplaced Qualified Code(s): S92.424B - Nondisplaced fracture of distal phalanx of right great toe, initial encounter for open fracture The scribe's documentation has been prepared under my direction and personally reviewed by me in its entirety. I confirm that the note above accurately reflects all work, treatment, procedures, and medical decision making performed by me.
[2019-05-04] MEDS ORDERED: GLUCOSE 10 TABS/TUBE PO PRN (17:31)
[2019-05-04] MEDS ORDERED: ZOLPIDEM TARTRATE 10 MG TAB PO PRN (17:31)
[2019-05-04] MEDS ORDERED: CARBOHYDRATES FOR HYPOGLYCEMIA PO PRN (17:31)
[2019-05-04] MEDS ORDERED: GLUCAGON FOR INJ 1 MG VIAL SQ PRN (17:31)
[2019-05-04] MEDS ORDERED: ACETAMINOPHEN 325 MG TAB PO PRN (17:31)
[2019-05-04] MEDS ORDERED: ONDANSETRON INJ 2 MG/ML 2 ML VIAL IV PRN (17:31)
[2019-05-04] MEDS ORDERED: GLUCOSE 40% GEL 15 GM TUBE PO PRN (17:31)
[2019-05-04] MEDS ORDERED: DEXTROSE 50% 50 ML SYRINGE IV PRN (17:31)
[2019-05-04] MEDS ORDERED: PATIENT'S HEIGHT AND/OR WEIGHT NEEDED SCH (18:00)
[2019-05-04] MEDS: FUROSEMIDE 40 MG in SYRINGE 0 ML IV SCH (18:22)
[2019-05-04] MEDS: INSULIN ASPART 100 UNITS/ML 3 ML PEN SC SCH ×2 (18:24→20:30)
[2019-05-04] MEDS: BACLOFEN 10 MG TAB PO SCH ×2 (18:24→20:13)
[2019-05-04] MEDS ORDERED: CEFEPIME 1,000 MG in SYRINGE 0 ML IV ONE (19:00)
[2019-05-04] MEDS: METOPROLOL TARTRATE 25 MG TAB PO SCH (20:12)
[2019-05-04] MEDS: METHENAMINE HIPPURATE 1 GM TAB PO SCH (20:13)
[2019-05-05] MEDS ORDERED: COUGH DROP (SUGAR FREE) LOZ 24 LOZ/1 BOX BUCCAL PRN (02:33)
[2019-05-05 04:31] LABS: Hematocrit (blood only) 38.3 % (42-52); Hemoglobin 11.8 g/dL (14.0-18.0); Mean Corpuscular Hemoglobin 25.9 pg (25-34); Mean Corpuscular Hgb Conc 30.8 g/dL (32-36); Mean Platelet Volume 11.1 fL (7.4-10.4); Platelet Count 351 K/uL (130-400); RDW Coefficient of Variation 17.5 % (11.5-14.5); RDW Standard Deviation 52.4 fL (36.4-46.3); Red Blood Count 4.56 M/uL (4.7-6.1); White Blood Count 13.22 K/uL (4.8-10.8)
[2019-05-05 04:43] LABS: INR 1.2 (0.9-1.1); Prothrombin Time 12.4 Seconds (9.0-12.0)
[2019-05-05 04:48] LABS: Alanine Aminotransferase 17 U/L (12-78); Albumin Level 2.7 gm/dl (3.4-5.0); Aspartate Aminotransferase 12 U/L (15-37); BUN Creatinine Ratio 31.8 (10-20); Blood Urea Nitrogen 46 mg/dl (7-18); Calcium 8.6 mg/dl (8.5-10.1); Carbon Dioxide 33 mmol/L (21-32); Chloride 103 mmol/L (98-107); Creatinine Clr Calc Pharmacy 53.9 ml/min; Est GFR (African American) 55.9; Est GFR (Non-African American) 48.2; Glucose 184 mg/dl (70-99); Potassium 3.9 mmol/L (3.5-5.1); Sodium 142 mmol/L (136-145)
[2019-05-05 04:52] LABS: Albumin Globulin Ratio 0.7 (0.9-2); Alkaline Phosphatase 120 U/L (45-117); Globulin 4.1 gm/dl (2.5-4.0); Total Protein 6.8 gm/dl (6.4-8.2); Troponin I < 0.015 ng/ml (0-0.045)
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
[2019-05-05 07:47] LABS: Estimated Average Glucose 186 mg/dl; Hemoglobin A1C 8.1 % (4.5-5.6)
[2019-05-05] MEDS: CEFEPIME 1,000 MG in SYRINGE 0 ML IV SCH ×2 (07:57→19:10)
[2019-05-05] MEDS: FUROSEMIDE 40 MG in SYRINGE 0 ML IV SCH ×2 (07:58→17:05)
[2019-05-05] MEDS: POTASSIUM CHLORIDE 20 MEQ TABCR PO SCH ×2 (07:58→11:44)
[2019-05-05] MEDS: METOPROLOL TARTRATE 25 MG TAB PO SCH ×3 (07:59→20:36)
[2019-05-05] MEDS: MULTIVITAMIN TAB PO SCH ×2 (07:59→09:01)
[2019-05-05] MEDS: BACLOFEN 10 MG TAB PO SCH ×5 (07:59→20:36)
[2019-05-05] MEDS: INSULIN ASPART 100 UNITS/ML 3 ML PEN SC SCH ×4 (08:33→20:44)
--- NOTE | 2019-05-05 12:43 | Hospitalist Progress Note ---
Date of Service May 05, 2019 Assessment & Plan (1) CHF exacerbation: - CXR reviewed showing cardiomegaly with volume overload and congestive change. Small to moderate bilateral pleural effusions and extensive bibasilar atelectasis. Pulmonary edema is not excluded. - Pro-NT-BNP =9934 - trop neg x3 - Daily weights, strict I's and O's, heart healthy diet, fluid restriction of 1500 mL daily - Last echo completed 11/13/2018 showing mild concentric LVH, normal systolic function, left atrium severely dilated, right atrium mildly dilated, possible aortic stenosis, and moderate mitral stenosis Repeat ECHO pending - Consult CHF clinic - IV Lasix in the ER with additional IV 40 mg dose on day of admission, continue with twice daily dosing. Holding home Lasix of 40 mg PO QAM and 20 mg PO QPM. Coon in place. - Noted increased Cr of 1.42 compared to baseline of ~1.0, likely increased s econdary to hypervolemic state and will improve with diuresis. Pt stated he may have made some medication errors prior to admission due to pain related to his foot injury. He is uncertain about his home lasix dosing due to this. (2) A-fib: -EKG reviewed, currently in A. fib, rate controlled -Holding Eliquis for right great toe fracture-continue to hold due to ongoing bleeding (3) Shortness of breath: -Secondary to CHF exacerbation as above -Continue supplemental O2 as needed, currently on 2 L, does not require at home (4) Artificial cardiac pacemaker: -Was evaluated during earlier hospital admission this year, August 29, 2018 which showed it had 16.2 years remaining longevity at that time -Follows with Dr. Arango as outpatient (5) Essential (primary) hypertension: -Continue metoprolol tartrate 75 mg BID, holding lisinopril 40 mg with high dose lasix (6) Open fracture of toe: -Ortho consult placed, will hold anticoagulation including aspirin and Eliquis due to bleeding -Hb on admission 13, slight drop to 11.8, monitor -Wound consult for other lower extremity wounds Started on cefepime 05/04 -Xray reviewed: 1. Nondisplaced fracture of the lateral base of the distal phalanx of the first toe at the interphalangeal joint. 2. Soft tissue wound at the first toe. 3. Soft tissue contusion of the dorsum of the foot. 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 Will wake, but just difficult. Nursing states that MAR shows ambien 10mg given around 230a. Pt seen later in the morning and reports feeling a bit confused, but better. He asks if he was given ambien, because that has made him confused and groggy in the past. He no longer takes this medication for that reason. Pt states he overall feels better. He feels his breathing is better. No chest pain. He ate without issue. Pain to his R toe is better. LE swelling is better. Pt denies fever, abd pain, n/v/c/d. Review of Systems Review of Systems: Pertinent positives and negatives reviewed in HPI--all others negative Physical Exam Constitutional: WD/WN, vitals as above Eyes: normal visual brumfield by confrontation and + anicteric sclerae Neck: normal visual inspection and trachea midline Respiratory: normal respiratory effort and + labored breathing (with talking--is improving); no respiratory distress Auscultation: + crackles (trace); no wheezes Cardiovascular: Rate/Rhythm: regular rate and regular rhythm Gastrointestinal (Abdomen): Inspection/Auscultation: abdomen not distended Percussion/Palpation: abdomen soft; abdomen nontender Musculoskeletal: Head/Neck/Chest: normocephalic and head atraumatic LE redness and swelling improved b/l Less ulceration weeping on LE Bandaging around R great toe is noted for bleeding Skin: no rashes, warm and dry Neurologic: awake; not confused Speech / Cognition: + abnormal speech (speech impediment) Psychiatric: A+Ox3, euthymic affect Results & Data Vital Signs (Past 12 Hours) Vital Signs Temp Pulse Pulse Resp BP BP Pulse Ox 05/05/19 07:38 79 151/92 H 97 05/05/19 07:16 89 05/05/19 03:05 36.5 C 77 19 152/87 H 99 PG Care Time/CCT Total # of Minutes Spent Total Time Spent with Patient: Total time spent is greater than 50% in coordination of care (as documented) at patient's floor/unit and/or counseling patient: (1) CHF exacerbation Heart failure type: unspecified Qualified Code(s): I50.9 - Heart failure, unspecified (2) A-fib Atrial fibrillation type: unspecified Qualified Code(s): I48.91 - Unspecified atrial fibrillation (3) Open fracture of toe Encounter type: initial encounter Laterality: right Phalanx: unspecified phalanx Physeal involvement: unspecified Toe: great toe Qualified Code(s): S92.401B - Displaced unspecified fracture of right great toe, initial encounter for open fracture (4) Diabetes mellitus Diabetes mellitus type: type 2 Diabetes mellitus buttermaker helper insulin use: without buttermaker helper use Diabetes mellitus complication status: with skin complications
[2019-05-05] MEDS ORDERED: SERTRALINE HCL 100 MG TABLET PO SCH (13:00)
--- NOTE | 2019-05-05 13:59 | XRay Report ---
XR chest 1V portable HISTORY: 73 years-old Male shortness of breath , desats ?asp acute shortness of breath COMPARISON: Chest radiograph 05/04/2019 TECHNIQUE: Portable AP view of the chest FINDINGS: Cardiac silhouette is enlarged, unchanged. Calcified plaque of the thoracic aorta can't. Stable left subclavian pacer. No pneumothorax. Small to moderate bilateral pleural effusions with persistent biba silar opacities. Pulmonary vascular congestion with interstitial coarsening. Degenerative changes of the shoulders and spine. IMPRESSION: 1. Cardiomegaly with persistent pulmonary edema. 2. Bilateral pleural effusions with unchanged bibasilar opacities suggestive of probable atelectasis. The above report was generated using voice recognition software. It may contain grammatical, syntax o r spelling errors. Electronically signed by: Michel Basurto M.D. 05/05/2019 1:58 PM
[2019-05-05 19:47] LABS: Appearance Urine Cloudy (Clear); Bilirubin Urine Negative (Negative); Blood Urine 1+ (Negative); Color Urine Yellow; Glucose Urine UA Negative (Negative); Ketones Urine Negative (Negative); Leukocyte Esterase Urine 3+ (Negative); Nitrite Urine Positive (Negative); RBC Urine Automated 0-4 /hpf (0-4); Specific Gravity Urine 1.011 (1.000-1.030); Urobilinogen Urine Negative (Negative); WBC Urine Automated >30 /hpf (0-5); pH Urine 7.5 (4.5-7.5)
[2019-05-05 20:09] LABS: Protein Urine Negative (Negative); Sulfosalicylic Acid Urine Negative (Negative)
[2019-05-05] MEDS: METHENAMINE HIPPURATE 1 GM TAB PO SCH (20:37)
[2019-05-05] MEDS ORDERED: MICONAZOLE NITRATE POWDER 43 GM EXT PRN (21:55)
[2019-05-06 06:46] LABS: Hematocrit (blood only) 38.4 % (42-52); Hemoglobin 11.9 g/dL (14.0-18.0); Mean Corpuscular Volume 83.8 fL (80-100); Mean Platelet Volume 10.6 fL (7.4-10.4); Platelet Count 334 K/uL (130-400); RDW Coefficient of Variation 17.7 % (11.5-14.5); Red Blood Count 4.58 M/uL (4.7-6.1); White Blood Count 11.12 K/uL (4.8-10.8)
[2019-05-06] MEDS ORDERED: CEFEPIME 2,000 MG in SYRINGE 7.5 ML IV SCH ×2 (07:00→19:00)
[2019-05-06 07:26] LABS: Albumin Globulin Ratio 0.7 (0.9-2); Albumin Level 2.7 gm/dl (3.4-5.0); Bilirubin,Total 1.1 mg/dl (0.2-1); Calcium 8.9 mg/dl (8.5-10.1); Creatinine Clr Calc Pharmacy 62.6 ml/min; Est GFR (African American) 75.1; Est GFR (Non-African American) 64.8; Total Protein 6.7 gm/dl (6.4-8.2)
[2019-05-06] MEDS: INSULIN ASPART 100 UNITS/ML 3 ML PEN SC SCH ×4 (08:07→21:18)
[2019-05-06] MEDS: FUROSEMIDE 40 MG in SYRINGE 0 ML IV SCH (08:08)
[2019-05-06] MEDS: BACLOFEN 10 MG TAB PO SCH ×4 (08:08→20:41)
[2019-05-06] MEDS: POTASSIUM CHLORIDE 20 MEQ TABCR PO SCH (08:08)
[2019-05-06] MEDS: ESCITALOPRAM OXALATE 10 MG TAB PO SCH (08:08)
[2019-05-06] MEDS: MULTIVITAMIN TAB PO SCH (08:08)
[2019-05-06] MEDS: METOPROLOL TARTRATE 25 MG TAB PO SCH ×2 (08:09→20:42)
--- NOTE | 2019-05-06 14:05 | Hospitalist Progress Note ---
Date of Service May 06, 2019 Assessment & Plan (1) CHF exacerbation: Pt stated he may have made some medication errors prior to admission due to pain related to his foot injury. He is uncertain about his home lasix dosing due to this. - CXR reviewed showing cardiomegaly with volume overload and congestive change. Small to moderate bilateral pleural effusions and extensive bibasilar atelectasis. Pulmonary edema is not excluded. NT pro-BNP elevated to 9934 on 05/04. - Last echo completed 11/13/2018 showing mild concentric LVH, normal systolic function, left atrium severely dilated, right atrium mildly dilated, possible aortic stenosis, and moderate mitral stenosis - Continue Lasix IV (hold PM dose today) - Monitor I&Os and weights (2) A-fib: EKG reviewed, currently in A. fib, rate controlled. - Holding Eliquis for right great toe fracture (3) Artificial cardiac pacemaker: Was evaluated during earlier hospital admission this year, August 29, 2018 which showed it had 16.2 years remaining longevity at that time. - Follows with Dr. Arango as outpatient (4) Essential (primary) hypertension: BP 160/80 today. - Continue metoprolol tartrate 75 mg BID - Holding lisinopril 40 mg with KASSANDRA; restart tomorrow (5) Open fracture of toe: X-ray on 05/04 showed non-displaced fracture of the lateral base of the distal phalanx of the first toe at the interphalangeal joint. - Ortho consult placed - non-operative management - Wound consult for other lower extremity wounds - Started on cefepime 05/04 - Will stop given lack of concern for cellulitis (6) Diabetes mellitus: A1c was 8.1% on 05/05/2019. - Sliding scale insulin - Holding metformin (7) Peripheral arterial disease: Contributing to lower extremity edema, erythema, multiple non-healing lower extremity wounds. - Wound consult placed (8) Paraplegia: Patient has been wheelchair/scooter bound for past 4 years, reports this has slowly happened over time. Patient notes had history of sacral decub sore, reports this is now well-healed. - Wound consulted (9) Spastic paralysis: - As above - Continue baclofen (10) Chronic indwelling Coon catheter: Last changed on 04/26/2019 by home health. - Continue methenamine hippurate 1 g tab QPM (11) DVT prophylaxis: Holding Eliquis and ASA in the setting of bleeding from wound on the toe. - SCDs Subjective Reports his shortness of breath has improved. He again downplays his aspiration to me, but reports that it only happens every few weeks/months. Otherwise doesn't feel there is much swelling left in his legs. Reports no fevers/chills, chest pain, shortness of breath, abdominal pain, nausea, or vomiting. Physical Exam Constitutional: WD/WN, vitals as above Eyes: EOM intact bilaterally; no conjunctival abnormality ENMT: external ear and nose normal, oropharynx normal Neck: trachea midline, no thyromegaly normal visual inspection Respiratory: + labored breathing and + uses accessory muscles Auscultation: lungs clear to auscultation bilaterally and + diminished lung sounds; no c rackles, no rales and no wheezes Cardiovascular: RRR, no murmur, no edema Gastrointestinal (Abdomen): Inspection/Auscultation: abdomen normal to inspection; abdomen not distended Musculoskeletal: no cyanosis or clubbing, extremities motor strength 5/5 Skin: no rashes, warm and dry Neurologic: moves all extremities and awake Psychiatric: Orientation: alert, oriented to person and cooperative Results & Data Vital Signs (Past 12 Hours) Vital Signs Temp Pulse Pulse Resp BP BP Pulse Ox 05/06/19 11:00 71 18 158/83 H 96 05/06/19 08:22 91 H 05/06/19 04:25 36.6 C 82 18 175/83 H 94 PG Care Time/CCT Total # of Minutes Spent Total Time Spent with Patient: Total time spent is greater than 50% in coordination of care (as documented) at patient's floor/unit and/or counseling patient: (1) CHF exacerbation Heart failure type: unspecified Qualified Code(s): I50.9 - Heart failure, unspecified (2) A-fib Atrial fibrillation type: unspecified Qualified Code(s): I48.91 - Unspecified atrial fibrillation (3) Open fracture of toe Encounter type: initial encounter Laterality: right Phalanx: unspecified phalanx Physeal involvement: unspecified Toe: great toe Qualified Code(s): S92.401B - Displaced unspecified fracture of right great toe, initial encounter for open fracture (4) Diabetes mellitus Diabetes mellitus type: type 2 Diabetes mellitus intermission coordinator insulin use: without alf use Diabetes mellitus complication status: with skin complications
[2019-05-06] MEDS ORDERED: ALBUT/IPRATROP 3MG/0.5MG NEB 3 ML VIAL NEB PRN (14:06)
[2019-05-06] MEDS: ALBUT/IPRATROP 3MG/0.5MG NEB 3 ML VIAL NEB SCH ×2 (15:16→19:15)
[2019-05-06] MEDS: METHENAMINE HIPPURATE 1 GM TAB PO SCH (20:42)
[2019-05-07 06:46] LABS: Hematocrit (blood only) 37.8 % (42-52); Hemoglobin 11.6 g/dL (14.0-18.0); Mean Corpuscular Hemoglobin 26.1 pg (25-34); Mean Corpuscular Hgb Conc 30.7 g/dL (32-36); Mean Corpuscular Volume 84.9 fL (80-100); Mean Platelet Volume 10.4 fL (7.4-10.4); Platelet Count 295 K/uL (130-400); RDW Coefficient of Variation 17.7 % (11.5-14.5); RDW Standard Deviation 53.3 fL (36.4-46.3); Red Blood Count 4.45 M/uL (4.7-6.1); White Blood Count 10.46 K/uL (4.8-10.8)
[2019-05-07 07:19] LABS: Albumin Level 2.6 gm/dl (3.4-5.0); BUN Creatinine Ratio 30.6 (10-20); Calcium 8.7 mg/dl (8.5-10.1); Creatinine Clr Calc Pharmacy 72.2 ml/min; Est GFR (African American) 89.4; Est GFR (Non-African American) 77.1; Magnesium 2.1 mg/dl (1.8-2.4)
[2019-05-07] MEDS: ALBUT/IPRATROP 3MG/0.5MG NEB 3 ML VIAL NEB SCH ×4 (07:19→18:52)
[2019-05-07 07:24] LABS: Albumin Globulin Ratio 0.6 (0.9-2); Bilirubin,Total 1.2 mg/dl (0.2-1); Phosphorus 2.8 mg/dl (2.5-4.9); Total Protein 6.6 gm/dl (6.4-8.2)
[2019-05-07] MEDS: INSULIN ASPART 100 UNITS/ML 3 ML PEN SC SCH ×4 (08:36→20:27)
--- NOTE | 2019-05-07 08:37 | XRay Report ---
XR chest 2V PA/lateral HISTORY: Aspiration COMPARISON: Chest 05/05/2019. FINDINGS: The heart remains enlarged. There are low lung volumes. Bilateral pleural effusions and bib asilar densities persist. Slight improvement in the interstitial pulmonary edema. No pneumothorax. IMPRESSION: 1. Slight improvement in the interstitial pulmonary edema. 2. Bilateral pleural effusions and bibasilar densities persist. Electronically signed by: Shailesh Thompson M.D. 05/07/2019 8:36 AM
[2019-05-07] MEDS: FUROSEMIDE 40 MG in SYRINGE 0 ML IV SCH (08:40)
[2019-05-07] MEDS: ESCITALOPRAM OXALATE 10 MG TAB PO SCH (08:41)
[2019-05-07] MEDS: MULTIVITAMIN TAB PO SCH (08:41)
[2019-05-07] MEDS: BACLOFEN 10 MG TAB PO SCH ×4 (08:41→20:23)
[2019-05-07] MEDS: lisinopriL 20 MG TAB PO SCH (08:41)
[2019-05-07] MEDS: POTASSIUM CHLORIDE 20 MEQ TABCR PO SCH (08:41)
[2019-05-07] MEDS: METOPROLOL TARTRATE 25 MG TAB PO SCH ×2 (08:41→20:23)
--- NOTE | 2019-05-07 14:57 | Hospitalist Progress Note ---
Date of Service May 07, 2019 Assessment & Plan (1) Word finding difficulty: Began yesterday per patient (I did not note it, but was only meeting him for the first time.) Worsened over the last 24 hours. No other neurologic deficits. - MRI brain - Minimize any sedating/confusing medications (2) CHF exacerbation: Pt stated he may have made some medication errors prior to admission due to pain related to his foot injury. He is uncertain about his home lasix dosing due to this. - CXR reviewed showing cardiomegaly with volume overload and congestive change. Small to moderate bilateral pleural effusions and extensive bibasilar atelectasis. Pulmonary edema is not excluded. NT pro-BNP elevated to 9934 on 05/04. - Last echo completed 11/13/2018 showing mild concentric LVH, normal systolic function, left atrium severely dilated, right atrium mildly dilated, possible aortic stenosis, and moderate mitral stenosis - Continue Lasix IV daily - Monitor I&Os and weights - Baseline weight ~90 kg. Near baseline euvolemia. (3) A-fib: EKG reviewed, currently in A. fib, rate controlled. - Holding Eliquis for right great toe fracture (4) Artificial cardiac pacemaker: Was evaluated during earlier hospital admission this year, August 29, 2018 which showed it had 16.2 years remaining longevity at that time. - Follows with Dr. Arango as outpatient (5) Essential (primary) hypertension: BP 130/70 today. - Continue metoprolol tartrate 75 mg BID - Continue lisinopril 20 mg (reduced from home 40mg) (6) Open fracture of toe: X-ray on 05/04 showed non-displaced fracture of the lateral base of the distal phalanx of the first toe at the interphalangeal joint. - Ortho consult placed - non-operative management - Wound consult for other lower extremity wounds - Started on cefepime 05/04 - Will stop given lack of concern for cellulitis (7) Diabetes mellitus: A1c was 8.1% on 05/05/2019. - Sliding scale insulin - Holding metformin (8) Peripheral arterial disease: Contributing to lower extremity edema, erythema, multiple non-healing lower extremity wounds. - Wound consult placed (9) Paraplegia: Patient has been wheelchair/scooter bound for past 4 years, reports this has slowly happened over time. Patient notes had history of sacral decub sore, reports this is now well-healed. 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 - Continue methenamine hippurate 1 g tab QPM (12) DVT prophylaxis: Holding Eliquis and ASA in the setting of bleeding from wound on the toe. - SCDs Subjective Having word-finding difficulty which began yesterday, but has been getting worse over the last 24 hours. Otherwise, reports no fevers/chills, chest pain, shortness of breath, abdominal pain, nausea, or vomiting. Physical Exam Constitutional: WD/WN, vitals as above Eyes: EOM intact bilaterally; no conjunctival abnormality ENMT: external ear and nose normal, oropharynx normal Neck: trachea midline, no thyromegaly normal visual inspection Respiratory: + labored breathing and + uses accessory muscles Auscultation: lungs clear to auscultation bilaterally and + diminished lung sounds; no crackles, no rales and no wheezes Cardiovascular: RRR, no murmur, no edema Gastrointestinal (Abdomen): Inspection/Auscultation: abdomen normal to inspection; abdomen not distended Musculoskeletal: no cyanosis or clubbing, extremities motor strength 5/5 Skin: no rashes, warm and dry Neurologic: moves all extremities and awake Speech / Cognition: + expressive aphasia Psychiatric: Orientation: alert, oriented to person and cooperative Results & Data Vital Signs (Past 12 Hours) Vital Signs Temp Pulse Resp BP BP Pulse Ox 05/07/19 11:09 36.2 C L 71 22 136/94 164/89 H 92 05/07/19 11:00 76 20 98 05/07/19 07:19 36.4 C L 99 H 20 155/87 H 93 05/07/19 04:27 36.4 C L 87 20 166/87 H PG Care Time/CCT Total # of Minutes Spent Total Time Spent with Patient: Total time spent is greater than 50% in coordination of care (as documented) at patient's floor/unit and/or counseling patient: (1) CHF exacerbation Heart failure type: unspecified Qualified Code(s): I50.9 - Heart failure, unspecified (2) A-fib Atrial fibrillation type: unspecified Qualified Code(s): I48.91 - Unspecified atrial fibrillation (3) Open fracture of toe Encounter type: initial encounter Laterality: right Phalanx: unspecified phalanx Physeal involvement: unspecified Toe: great toe Qualified Code(s): S92.401B - Displaced unspecified fracture of right great toe, initial encounter for open fracture (4) Diabetes mellitus Diabetes mellitus type: type 2 Diabetes mellitus alf insulin use: without alf use Diabetes mellitus complication status: with skin complications
[2019-05-07] MEDS: METHENAMINE HIPPURATE 1 GM TAB PO SCH (20:23)
[2019-05-08] MEDS: ALBUT/IPRATROP 3MG/0.5MG NEB 3 ML VIAL NEB SCH ×3 (06:53→15:35)
[2019-05-08] MEDS: lisinopriL 20 MG TAB PO SCH (08:14)
[2019-05-08] MEDS: POTASSIUM CHLORIDE 20 MEQ TABCR PO SCH (08:14)
[2019-05-08] MEDS: MULTIVITAMIN TAB PO SCH (08:14)
[2019-05-08] MEDS: ESCITALOPRAM OXALATE 10 MG TAB PO SCH (08:14)
[2019-05-08] MEDS: FUROSEMIDE 40 MG in SYRINGE 0 ML IV SCH (08:14)
[2019-05-08] MEDS: BACLOFEN 10 MG TAB PO SCH ×2 (08:14→12:17)
[2019-05-08] MEDS: METOPROLOL TARTRATE 25 MG TAB PO SCH (08:14)
[2019-05-08] MEDS: INSULIN ASPART 100 UNITS/ML 3 ML PEN SC SCH ×2 (08:15→12:18)
--- NOTE | 2019-05-08 09:35 | Magnetic Resonance Report ---
MR brain wo con CLINICAL HISTORY: 73 years-old Male presenting with Word-finding difficulty, concern for stroke. TECHNIQUE: Multisequence, multiplanar MR imaging of the brain was performed without the use of intrav enous contrast. IV contrast: None. COMPARISON: None. FINDINGS: Localizer images: Unremarkable. Bone marrow signal intensity within the calvarium within normal limits. Normal midline sagittal structures. Proportional ventricular and sulcal prominence, likely age-relate d parenchymal volume loss. No mass effect or midline shift. No restricted diffusion or hemorrhage. Pe riventricular and subcortical white matter T2/FLAIR hyperintensity, nonspecific but likely indicative of chronic small vessel ischemic change. No extra-axial fluid collection. Loss of flow-void within the left internal carotid artery to the lev el of the supraclinoid segment. Polypoid mucosal thickening in the right frontal sinus. Absent left n ative lens. IMPRESSION: 1. Findings highly concerning for slow flow versus occlusion of the left ICA to the level of the sup raclinoid segment. CTA should be obtained. 2. No other evidence of acute intracranial pathology. As such, the left ICA finding is most likely o n a chronic basis. 3. Extensive chronic small vessel ischemic change. The report will be called/faxed according to standard departmental protocol for a critical finding. Electronically signed by: Dwight Torres M.D. 05/08/2019 9:34 AM
[2019-05-08] MEDS ORDERED: SODIUM CHLORIDE 0.9% 1000ML 250 ML IV ONE (10:03)
[2019-05-08] MEDS ORDERED: OPTIRAY 320 125ml IV PRN (11:02)
--- NOTE | 2019-05-08 11:13 | CT Scan Report ---
CT angio neck with con CLINICAL HISTORY: 73 years-old Male presenting with Possible left ICA occlusion. TECHNIQUE: Multidetector CT angiography of the neck was performed after the administration of intrave nous contrast. 3-D volumetric and/or maximum intensity projection (MIP) images were subsequently fritz nstructed for review. IV contrast: 120 mL of Optiray 320. One or more dose lowering techniques were u sed consistent with the principles of ALARA (as low as reasonably achievable), including automatic ex posure control, mA or kV adjustment to individual patient size, and/or use of iterative reconstructio n. Stenosis measurements were based on NASCET-like criteria (distal lumen diameter as the denominator for stenosis measurement). COMPARISON: None. CT DOSE (mGy.cm): The estimated cumulative dose is 614.38. FINDINGS: Yard Rigger topogram: Left subclavian implanted cardiac device. Aortic arch: Atherosclerosis of the three-vessel aortic arch with patent origins of the branch vessel s. Innominate artery: Patent. Right subclavian artery: Patent. Right common carotid artery: Patent. Right internal and external carotid arteries: Predominantly calcified atherosclerotic plaque at the c arotid bifurcation. Mild irregularity of the proximal right ICA with less than 25% stenosis. Left common carotid artery: Patent. Left internal and external carotid arteries: Prominently calcified atherosclerotic plaque at the gaspar tid bifurcation. The left internal carotid artery is patent at its origin though nonopacified immedia tely thereafter and throughout the course to the level of the terminus. Left subclavian artery: Patent. Vertebral arteries: Codominant vertebral arteries. Origins and courses of the bilateral vertebral art eries patent. Other: Left ICA occluded to the level of the terminus. The left anterior and middle cerebral arteries are patent likely from collateral flow. Soft tissues of the neck normal allowing for the phase of co ntrast. Degenerative changes of the cervical spine. Large bilateral pleural effusions with patchy con solidation, left greater than right. IMPRESSION: 1. 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 This is most likely chronic. 2. No other occlusion, significant stenosis, or aneurysm. 3. Bilateral large pleural effusions with patchy apical consolidation concerning for pneumonia or ed bossman. Electronically signed by: Dwight Torres M.D. 05/08/2019 11:11 AM
--- NOTE | 2019-05-08 11:39 | CT Scan Report ---
CTA ANGIOGRAPHY OF THE HEAD CLINICAL HISTORY: Possible ICA occlusion COMPARISON STUDY: MRI of the brain May 08, 2019. TECHNIQUE: Helical axial images of the head were obtained following uneventful intravenous administr ation of 120 cc of Optiray 320. Automated exposure control was utilized for the study. A dose lower ing technique was utilized adhering to the principles of ALARA. CT DOSE: 614.38 mGy.cm FINDINGS: No acute intracranial hemorrhage, midline shift or mass effect is present. The ventricular system is unremarkable. The basilar cisterns are patent. There are no extra-axial collections. A righ t frontal sinus mucous retention cyst versus polyp is noted. Occlusion of the cervical, petrous and c avernous portions of the left internal carotid artery is noted with reconstitution at the level of th e supraclinoid ICA which is somewhat diminutive. Moderate to severe stenosis of the distal left M1 se gment is noted. Numerous additional intracranial stenoses are noted with moderate stenosis of the rig ht cavernous carotid. The bilateral A2 segments are patent. There is severe stenosis at the origin of the left A1 segment and moderate stenosis at the distal left A1 segment. No intraluminal thrombus is noted. No dissection within the intracranial vessels is noted. There is severe stenosis of the proxi mal intracranial portion of the left vertebral artery. Moderate multifocal stenoses within the right vertebral artery and basilar artery are noted. persistence of the right posterior cerebral jason ry is present. Multifocal stenoses within the left posterior cerebral artery are noted. No abrupt ves haley cut off is noted. IMPRESSION: 1. 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 This occlusion is likely chronic. 2. Extensive atherosclerotic plaque within the intracranial vessels with moderate to severe multifoca l stenoses, as detailed above. 3. No intraluminal thrombus. Electronically signed by: Redd Fan M.D. 05/08/2019 11:38 AM
--- NOTE | 2019-05-08 12:49 | Hospitalist Progress Note ---
Date of Service May 08, 2019 Assessment & Plan (1) Word finding difficulty: Began yesterday per patient (I did not note it, but was only meeting him for the first time.) Worsened over the last 24 hours. No other neurologic deficits. - MRI brain on 05/08 showed no acute stroke, but did show concern of left ICA. 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 - Consulted neurology for medical management recs and consideration of vascular surgery consult. Unclear if his occasional expressive aphasia is related to temporarily reducing flow to the left MCA. (2) CHF exacerbation: Pt stated he may have made some medication errors prior to admission due to pain related to his foot injury. He is uncertain about his home lasix dosing due to this. - CXR reviewed showing cardiomegaly with volume overload and congestive change. Small to moderate bilateral pleural effusions and extensive bibasilar atelectasis. Pulmonary edema is not excluded. NT pro-BNP [place] 9934 on 05/04. - Last echo completed 11/13/2018 showing mild concentric LVH, normal systolic function, left atrium severely dilated, right atrium mildly dilated, possible aortic stenosis, and moderate mitral stenosis - Monitor I&Os and weights - Baseline weight ~90 kg. Weight up slightly today, though still near baseline euvolemia. - Continue Lasix IV daily (3) A-fib: EKG reviewed, currently in A. fib, rate controlled. - Holding Eliquis for right great toe fracture (4) Artificial cardiac pacemaker: Was evaluated during earlier hospital admission this year, August 29, 2018 which showed it had 16.2 years remaining longevity at that time. - Follows with Dr. Arango as outpatient (5) Essential (primary) hypertension: BP 130/70 today. - Continue metoprolol tartrate 75 mg BID - Continue lisinopril 20 mg (reduced from home 40mg) (6) Open fracture of toe: X-ray on 05/04 showed non-displaced fracture of the lateral base of the distal phalanx of the first toe at the interphalangeal joint. - Ortho consult placed - non-operative management - Wound consult for other lower extremity wounds - Started on cefepime 05/04 - Will stop given lack of concern for cellulitis - Dr. Simpson consulted on 05/08 for worse look. Considering debridement. (7) Diabetes mellitus: A1c was 8.1% on 05/05/2019. - Sliding scale insulin - Holding metformin (8) Peripheral arterial disease: Contributing to lower extremity edema, erythema, multiple non-healing lower extremity wounds. - Wound consult placed (9) Paraplegia: Patient has been wheelchair/scooter bound for past 4 years, reports this has slowly happened over time. Patient notes had history of sacral decub sore, reports this is now well-healed. 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 - Continue methenamine hippurate 1 g tab QPM (12) DVT prophylaxis: Holding Eliquis and ASA in the setting of bleeding from wound on the toe. - SCDs Subjective Word-finding is improved this morning. Still having some issues though. Toe is looking worse per supervising bailiff. Reports no fevers/chills, chest pain, shortness of breath, abdominal pain, nausea, or vomiting. Physical Exam Constitutional: WD/WN, vitals as above Eyes: EOM intact bilaterally; no conjunctival abnormality ENMT: external ear and nose normal, oropharynx normal Neck: trachea midline, no thyromegaly normal visual inspection Respiratory: + labored breathing and + uses accessory muscles Auscultation: lungs clear to auscultation bilaterally and + diminished lung sounds; no crackles, no rales and no wheezes Cardiovascular: RRR, no murmur, no edema Gastrointestinal (Abdomen): Inspection/Auscultation: abdomen normal to inspection; abdomen not distended Musculoskeletal: no cyanosis or clubbing, extremities motor strength 5/5 Skin: no rashes, warm and dry Neurologic: moves all extremities and awake Speech / Cognition: + expressive aphasia (Improved) Psychiatric: Orientation: alert, oriented to person and cooperative Results & Data Vital Signs (Past 12 Hours) Vital Signs Temp Pulse Resp BP BP Pulse Ox 05/08/19 12:03 34.7 C L 73 10 L 152/97 H 97 05/08/19 11:11 72 14 96 05/08/19 07:45 36.5 C 100 H 18 179/68 H 95 05/08/19 06:53 60 18 94 05/08/19 04:00 36 C L 84 20 199/94 H 96 05/08/19 03:55 98 H 181/90 H PG Care Time/CCT Total # of Minutes Spent Total Time Spent with Patient: Total time spent is greater than 50% in coordination of care (as documented) at patient's floor/unit and/or counseling patient: (1) CHF exacerbation Heart failure type: unspecified Qualified Code(s): I50.9 - Heart failure, unspecified (2) A-fib Atrial fibrillation type: unspecified Qualified Code(s): I48.91 - Unspecified atrial fibrillation (3) Open fracture of toe Encounter type: initial encounter Laterality: right Phalanx: unspecified phalanx Physeal involvement: unspecified Toe: great toe Qualified Code(s): S92.401B - Displaced unspecified fracture of right great toe, initial encounter for open fracture (4) Diabetes mellitus Diabetes mellitus type: type 2 Diabetes mellitus snf insulin use: without intermediate accountant use Diabetes mellitus complication status: with skin complications
[2019-05-08] MEDS ORDERED: ASPIRIN 81 MG ECTAB PO SCH (13:30)
--- NOTE | 2019-05-08 13:58 | Discharge Summary ---
Date of Service May 08, 2019 Admission HPI Per Admitting Provider This is a 73 yo M with PMHx of Chronic diastolic CHF, atrial fib on Eliquis, cardiac pacemaker, HTN, DM type II, spastic paraplegia, chronic indwelling catheter, depression, anxiety, umbilical hernia. He presents due to open foot wound and difficulty breathing. Patient notes that he has been having worsening shortness of breath for several days now, and that it is actually hard for him to speak without becoming short of breath. He does not use chronic supplemental O2 at home nor CPAP at night. Patient is unsure of his dry weight, but notes that swelling in his lower extremities is much worse than normal. He admits to orthopnea, must sleep in a reclining chair which has worsened over the last few days as well. His other major complaint today is that he was on his electric scooter cmoving forward, when his foot became wedged in between a piece of furniture and was unable to stop and led to the right great toe open fracture as reviewed on imaging. He denies any pain currently. Patient lives at home alone and functions independently. He reports having Medicaid home health in his home several days per week. Principal Diagnosis CHF exacerbation Waxing/waning dysarthria/aphasia - Concerning for vulnerable area of perfusion. Discharge Exam Constitutional WD/WN, vitals as above Eyes EOM intact bilaterally; no conjunctival abnormality ENMT external ear and nose normal, oropharynx normal Neck trachea midline, no thyromegaly normal visual inspection Respiratory + labored breathing and + uses accessory muscles Auscultation: lungs clear to auscultation bilaterally and + diminished lung sounds; no crackles, no rales and no wheezes Cardiovascular RRR, no murmur, no edema Gastrointestinal (Abdomen) Inspection/Auscultation: abdomen normal to inspection; abdomen not distended Musculoskeletal no cyanosis or clubbing, extremities motor strength 5/5 Skin no rashes, warm and dry Neurologic moves all extremities and awake Speech / Cognition: + expressive aphasia (Improved) Psychiatric Orientation: alert, oriented to person and cooperative Discharge Data Allergies Allergy/AdvReac Type Severity Reaction Status Date / Time No Known Allergies Allergy Verified 05/04/19 14:18 Consultations 05/04/19 14:54 ED Decision to Admit Stat 05/04/19 17:31 Consult Case Management - Discharge Planning Routine Consult Orthopedic Surgery Routine 05/08/19 12:12 Consult Wound Care Provider Routine 05/08/19 12:40 Consult Neurology Routine 05/08/19 13:49 Burn CD for patient Stat Ordered Studies 05/08/19 01:52 MR brain wo con Routine 05/08/19 10:02 CT angio head w con Stat CT angio neck with con Stat Hospital Course (1) Word finding difficulty: Began yesterday per patient (I did not note it, but was only meeting him for the first time.) Worsened over the last 24 hours. No other neurologic deficits. - MRI brain on 05/08 showed no acute stroke (chronic small vessel disease), but did show concern of left ICA. 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 - Consulted neurology for medical management recs and consideration of vascular surgery consult. Unclear if his occasional expressive aphasia is related to temporarily reducing flow to the left MCA. - Discussed with [place] neuro and neuro-interventional - Given ASA 81mg on 05/08 in the afternoon. Did not restart anticoagulation. Will transfer to [place] for perfusion studies and possible intervention. (2) CHF exacerbation: Pt stated he may have made some medication errors prior to admission due to pain related to his foot injury. He is uncertain about his home lasix dosing due to this. - CXR reviewed showing cardiomegaly with volume overload and congestive change. Small to moderate bilateral pleural effusions and extensive bibasilar atelectasis. Pulmonary edema is not excluded. NT pro-BNP elevated to 9934 on 05/04. - Last echo completed 11/13/2018 showing mild concentric LVH, normal systolic function, left atrium severely dilated, right atrium mildly dilated, possible aortic stenosis, and moderate mitral stenosis - Monitor I&Os and weights - Baseline weight ~90 kg. Weight up slightly today, though still near baseline euvolemia. - Continue Lasix IV daily - Cr was 1.0 on 05/07 (3) A-fib: EKG reviewed, currently in A. fib, rate controlled. - Holding Eliquis for right great toe fracture (4) Artificial cardiac pacemaker: Was evaluated during earlier hospital admission this year, August 29, 2018 which showed it had 16.2 years remaining longevity at that time. - Follows with Dr. Arango as outpatient (5) Essential (primary) hypertension: BP 150/70 today. - Continue metoprolol tartrate 75 mg BID - Continue lisinopril 20 mg (reduced from home 40mg) - MAP goal is >90 per [place] neurology (6) Open fracture of toe: X-ray on 05/04 showed non-displaced fracture of the lateral base of the distal phalanx of the first toe at the interphalangeal joint. - Ortho consult placed - non-operative management - Wound consult for other lower extremity wounds - Started on cefepime 05/04 - Stopped on 05/07 given lack of concern for cellulitis - Dr. Simpson consulted on 05/08 for worse look. Considering debridement. (7) Diabetes mellitus: A1c was 8.1% on 05/05/2019. - Sliding scale insulin - Holding metformin (8) Peripheral arterial disease: Contributing to lower extremity edema, erythema, multiple non-healing lower extremity wounds. - Wound consult placed (9) Paraplegia: Patient has been wheelchair/scooter bound for past 4 years, reports this has slowly happened over time. Patient notes had history of sacral decub sore, reports this is now well-healed. 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 - Continue methenamine hippurate 1 g tab QPM (12) DVT prophylaxis: Holding Eliquis and ASA in the setting of bleeding from wound on the toe. - Dose of ASA 81mg PO chewable given as above - SCDs Total Time Total Time Spent Total Time Spent (In Minutes): 45 Discharge Plan Discharge Items Patient Disposition: Transfer Acute Care Hospital Reason For Visit: CHF EXACERBATION, OPEN FRACTURE R FOOT Discharge Diagnosis: Possible TIAs Activity: Resume your previous activity Non-emergency contact: Primary Care Provider Call non-emergency contact if: your pain is worsening Follow-up/Referrals: Jm Carrillo III, MD [Primary Care Provider] - Diet: Carb Consistent or DM2 and Heart Healthy Addtl Attending Provider Instructions: Given ASA 81mg chewable on 05/08 at 2pm (prior to transfer). Apixaban not restarted. Pending Studies at Discharge: No Stand-Alone Forms: My [facility] Skilled Items Patient informed of condition?: Yes DNR: Yes Discharge Level of Care: Other Communicable Disease: No Discharge Prognosis: Stable Lines: Peripheral IV Urinary Catheter: Yes Medications and DC Order Prescriptions: Continued apixaban 5 mg tablet 5 mg PO BID RF: 0 lisinopril 40 mg tablet 40 mg PO QAM RF: 0 methenamine hippurate 1 gram tablet 1 gm PO QPM RF: 0 baclofen 10 mg tablet 10 mg PO QID RF: 0 metformin 1,000 mg tablet 1,000 mg PO BID Qty: 30 RF: 2 furosemide 20 mg tablet 40 mg PO QAM RF: 0 multivitamin Tablet 1 tab PO QAM RF: 0 potassium chloride [Klor-Con M20] 20 mEq tablet,ER particles/crystals 40 meq PO QAM RF: 0 metoprolol tartrate [Lopressor] 50 mg tablet 75 mg PO BID RF: 0 sertraline [Zoloft] 50 mg tablet 100 mg PO DAILY@1300 RF: 0 furosemide [Lasix] 20 mg tablet 20 mg PO PM RF: 0 zolpidem [Ambien] 10 mg tablet 10 mg PO HS PRN (Reason: insomnia) RF: 0 aspirin 81 mg Tablet,Delayed Release (Dr/Ec) 81 mg PO QAM RF: 0 ondansetron 4 mg Tablet,Disintegrating 4 mg PO DAILY PRN (Reason: Nausea And Vomiting) RF: 0 Lantus U-100 Insulin 13 units subcut DAILY RF: 0 Discharge Orders: Discharge Order (Routine); Ordered 05/08/19 Ordered By: Leon Alvarez Admission Data Admit Date/Time: 05/04/19 15:30 Attending Provider: Leon Alvarez Admit Provider: Nicole Mixon Primary Care Provider: Jm Carrillo III Other Providers: Todd Cummins ; Leon Alvarez ; Rigoberto Simpson ; Todd Romero
--- NOTE | 2019-05-09 07:59 | Neurology Consultation ---
Date of Consultation May 09, 2019 History of Present Illness Reason for Consultation: Occlusion of left internal carotid artery, aphasia Requesting Physician: Leon Alvarez MD Attending Physician: Leon Alvarez MD History of Present Illness I had discussed this case with Dr. Alvarez over the telephone yesterday afternoon (from the outpatient neurology office) and had recommended transfer to [facility] for further assessment including perfusion studies and consideration of thrombectomy. He was appropriately transferred to [facility] before he was seen in neurological consultation. Allergies Allergy/AdvReac Type Severity Reaction Status Date / Time No Known Allergies Allergy Verified 05/04/19 14:18 Home Medications Home Medications Medication Instructions Recorded Confirmed Type apixaban 5 mg tablet 5 mg PO BID 02/18/18 05/04/19 History lisinopril 40 mg tablet 40 mg PO QAM 02/18/18 05/04/19 History methenamine hippurate 1 gram tablet 1 gm PO QPM tab 02/18/18 05/04/19 History baclofen 10 mg tablet 10 mg PO QID tab 11/28/18 05/04/19 History metformin 1,000 mg tablet 1,000 mg PO BID #30 tab 11/28/18 05/04/19 Rx metoprolol tartrate [Lopressor] 75 mg PO BID 01/20/19 05/04/19 History multivitamin 1 tab PO QAM 01/20/19 05/04/19 History potassium chloride [Klor-Con M20] 40 meq PO QAM 01/20/19 05/04/19 History sertraline [Zoloft] 100 mg PO DAILY@1300 01/20/19 05/04/19 History furosemide 20 mg tablet 20 mg PO PM tab 01/23/19 05/04/19 History furosemide 20 mg tablet 40 mg PO QAM tab 01/23/19 05/04/19 History zolpidem 10 mg tablet 10 mg PO HS PRN 01/28/19 05/04/19 History aspirin 81 mg PO QAM 05/04/19 05/04/19 History ondansetron 4 mg PO DAILY PRN 05/04/19 05/04/19 History Lantus U-100 Insulin 13 units SUBCUT DAILY 05/05/19 05/05/19 History Patient History Medical History A-fib (Acute) Leg ulcer (Acute) Cellulitis (Chronic) Diabetes 1.5, managed as type 2 (Chronic) Glaucoma (Chronic) HTN (hypertension) (Chronic) Hydrocele (Chronic) Scrotal mass (Chronic) Sepsis (Chronic) Small intestine obstruction (Chronic) Spastic paralysis (Chronic) UTI (urinary tract infection) (Chronic) Urinary retention (Chronic) Acute diastolic heart failure Surgical History History of toe surgery (Chronic) S/P TURP (Chronic) Family History Other No significant family history Social History Preferred Language: Guatemalan Communication Ability: Effective Ct Scan Tech Required: No Beliefs That Will Affect Care: None Current Living Situation: Alone Feels Safe at Home: Yes Smoking Status: Former smoker Tobacco Type: cigarettes ; Cigarettes Per Day: about 45 years ago ; Second Hand Exposure: No ; Hx Alcohol Use: No Hx Substance Use: No
--- NOTE | 2019-05-14 12:53 | Coding Query ---
CONGESTIVE HEART FAILURE To Promote full compliance with coding requirements relating to patient care, physician participation is requested in all cases of kelp cutter uncertainty. Please assist us with the following questions. A diagnosis of Congestive Heart Failure is documented in the patient's medical record. To accurately code this diagnosis and to compare patient severity, we ask that you specify the type of heart failure by placing an X within the parenthesis (x). SYSTOLIC HEART FAILURE ( ) Acute ( ) Chronic ( ) Acute on Chronic ( ) Rheumatic ( ) Unknown DIASTOLIC HEART FAILURE ( ) Acute ( ) Chronic ( x ) Acute on Chronic ( ) Rheumatic ( ) Unknown COMBINED SYSTOLIC AND DIASTOLIC HEART FAILURE ( ) Acute ( ) Chronic ( ) Acute on Chronic ( ) Rheumatic ( ) Unknown Was the CHF Present On Admission? Please check the appropriate box: ( x ) Present on Admission ( ) Not Present On Admission ( ) Clinically undetermined Thank you Robert PARSON
== END 2019-05-08 15:43 | disposition short-term general hospital (02) | DRG 292 ==
LOC: ED 12:29 → SUATTDRO 15:30 → 2N 15:30

== ENCOUNTER 2019-06-17 20:32 | Inpatient (IN) ==
[2019-06-17] MEDS ORDERED: FUROSEMIDE 40 MG/4 ML VIAL IV STA (21:07)
[2019-06-17] MEDS ORDERED: NITROGLYCERIN 2% OINTMENT 30GM TUBE EXT STA (21:07)
[2019-06-17 21:21] LABS: Alanine Aminotransferase 19 U/L (12-78); Albumin Level 3.2 gm/dl (3.4-5.0); Aspartate Aminotransferase 11 U/L (15-37); BUN Creatinine Ratio 27.1 (10-20); Blood Urea Nitrogen 34 mg/dl (7-18); Calcium 9.2 mg/dl (8.5-10.1); Carbon Dioxide 32 mmol/L (21-32); Chloride 105 mmol/L (98-107); Creatinine Clr Calc Pharmacy 60.7 ml/min; Est GFR (African American) 64.1; Est GFR (Non-African American) 55.3; Glucose 254 mg/dl (70-99); Sodium 141 mmol/L (136-145)
--- NOTE | 2019-06-17 21:22 | XRay Report ---
SINGLE VIEW CHEST CLINICAL HISTORY: Dyspnea. FINDINGS: An AP, portable, upright chest radiograph is compared to study dated 05/07/2019. The examin ation is degraded by portable technique and patient rotation. A single lead cardiac pacemaker is unch anged in position. The heart is enlarged noting atherosclerotic calcification of the thoracic aorta. There is pulmonary vascular congestion and interstitial edema. There are layering pleural effusions w ith bibasilar consolidation. No pneumothorax is seen. The skeletal structures are osteopenic. The bon y thorax is grossly intact. IMPRESSION: 1. Cardiomegaly and cardiac pacemaker. There is evidence of congestive failure and interstitial edema . 2. Layering pleural effusions with bibasilar consolidation. ACT 112: Negative or not required by law. Electronically signed by: Chandra Hammer M.D. 06/17/2019 9:21 PM
[2019-06-17 21:24] LABS: INR 1.2 (0.9-1.1); Partial Thromboplastin Ratio 1.2; Partial Thromboplastin Time 32.5 Seconds (21.0-31.0); Prothrombin Time 11.8 Seconds (9.0-12.0)
[2019-06-17 21:26] LABS: Albumin Globulin Ratio 0.7 (0.9-2); Alkaline Phosphatase 167 U/L (45-117); Globulin 4.6 gm/dl (2.5-4.0); NT Pro B Type Natriuretic Pept 5685 pg/ml (0-900); Total Protein 7.8 gm/dl (6.4-8.2); Troponin I < 0.015 ng/ml (0-0.045)
[2019-06-17 21:28] LABS: Basophils # (auto) 0.02 K/uL (0-0.2); Basophils % (auto) 0.2 %; Eosinophils # (auto) 0.36 K/uL (0-0.5); Eosinophils % (auto) 3.8 %; Hemoglobin 12.4 g/dL (14.0-18.0); Immature Granulocytes # (auto) 0.01 K/uL (0.00-0.02); Immature Granulocytes % (auto) 0.1 %; Lymphocytes # (auto) 1.03 K/uL (1.2-3.4); Mean Corpuscular Hemoglobin 25.2 pg (25-34); Mean Corpuscular Hgb Conc 29.5 g/dL (32-36); Mean Corpuscular Volume 85.4 fL (80-100); Mean Platelet Volume 10.7 fL (7.4-10.4); Monocytes # (auto) 0.74 K/uL (0.11-0.59); Monocytes % (auto) 7.9 %; Neutrophils # (auto) 7.24 K/uL (1.4-6.5); Platelet Count 386 K/uL (130-400); RDW Coefficient of Variation 17.1 % (11.5-14.5); RDW Standard Deviation 52.9 fL (36.4-46.3); Red Blood Count 4.92 M/uL (4.7-6.1)
[2019-06-17 22:21] LABS: Appearance Urine Cloudy (Clear); Bacteria Urine Automated 4+ (Negative); Bilirubin Urine Negative (Negative); Blood Urine Trace (Negative); Color Urine Yellow; Glucose Urine UA Negative (Negative); Ketones Urine Negative (Negative); Leukocyte Esterase Urine 1+ (Negative); Nitrite Urine Positive (Negative); Protein Urine 2+ (Negative); RBC Urine Automated 0-4 /hpf (0-4); Specific Gravity Urine 1.012 (1.000-1.030); Urobilinogen Urine Negative (Negative); WBC Urine Automated >30 /hpf (0-5); pH Urine 5.5 (4.5-7.5)
[2019-06-17] MEDS ORDERED: cefTRIAXone SODIUM 2,000 MG/70 ML BAG IV STA (22:31)
--- NOTE | 2019-06-17 23:15 | Emergency Department Note ---
Entered by Miguel Angel Dorsey acting as a scribe for ED Provider Note CHIEF COMPLAINT: Shortness of breath HISTORY OF PRESENT ILLNESS: The patient is a 74 year old male who presents to the Emergency Room with complaints of constant shortness of breath beginning this evening. The patient states he has a history of CHF and has been taking his water pill as prescribed. He reports he was recently told to increase the amount of water pills he takes, and he has been following this new regime. The patient notes for the past 3-4 days, his legs have started to swell, and the increase in water pill has not been helping. He states he does not wear oxygen at home, and he has had a mild cough. The patient reports he will intermittently have chest pains when he lies down, but he did not have any today. He notes his legs are normally red when his legs swell, and when the swelling goes down, the redness goes away. The patient states he takes Eliquis and Metoprolol. Pt denies LOC, headache, fevers, chills, diaphoresis, visual changes, neck pain, nausea, vomiting, abdominal pain, back pain, melena, hematochezia, urinary symptoms, numbness, weakness, lymphadenopathy, rash, or other complaints. REVIEW OF SYSTEMS: See HPI for pertinent positives and negatives. A total of ten systems were r eviewed and were otherwise negative. PMHx/PSHx: TURP, HTN, DM, a-fib, UTI SOCIAL HISTORY: Patient lives at home. PHYSICAL EXAM: GENERAL: Awake, alert, dyspneic-appearing, in no distress. HENT: Normocephalic, atraumatic. Oropharynx unremarkable. EYES: PERRL. Normal conjunctiva. Sclera non-icteric. NECK: Inspection normal. Non-tender. Supple. No nuchal rigidity. FROM. No masses. RESPIRATORY: Increased worker breathing. Diminished breath sounds at the bases bilaterally. No wheezes. No rales. CARDIAC: Irregular normal rate. Normal rhythm. No murmurs. No rubs. Extremities warm and well perfused. Pulses equal. No JVD. GI: Soft, non-distended. No tenderness to palpation. No rebound or guarding. No masses. RECTAL: Deferred. MUSCULOSKELETAL: Atraumatic. Chest examination reveals no tenderness. The back is symmetrical on inspection without obvious abnormality. There is no CVA tenderness to palpation. No joint edema. LOWER EXTREMITIES: Erythematous and 3+ edema to the bilateral LE. Ulcerations noted on the bilateral shins NEURO: Normal sensorium. No sensory or motor deficits noted. SKIN: No rash or jaundice noted. EMERGENCY DEPARTMENT COURSE: 2104: The patient was evaluated in room B09, and a complete history and physical examination were performed. 2106: Past medical records reviewed. The patient was evaluated by his PCP four days ago for insomnia. He was discharged from the hospital in the middle fo April for CHF exacerbation. 2233: Upon reevaluation, the patient is resting comfortably. I discussed laboratory and radiographic results with him. He verbalized agreement of the treatment plan. The patient will be evaluated for further management and care. 2258: I reviewed the patient's case with Dr Morillo, [facility] Hospitalist. He will evaluate the patient for further management. MEDICAL DECISION MAKING: Prior records/ancillary studies reviewed. Triage Nursing notes reviewed and agree them. The patient's history was concerning for shortness of breath. Differential diagnosis: Etiologies such as pneumonia, COPD, reactive airway disease, CHF, cardiac ischemia, pulmonary embolism, pneumothorax, musculoskeletal, infections, gastrointestinal, as well as others were entertained. Physical examination: Consistent with CHF. Lower extremity wounds noted. Surrounding erythema however the patient states that this is chronic in appearance. ER treatment provided: Supplemental oxygen IV Lasix Nitropaste IV Rocephin On reassessment the patient felt better. Diagnostic interpretation by me: The electrocardiogram was negative for ischemic change. The labs revealed a slight anemia on CBC. Chemistry panel was unremarkable except for hyperglycemia. Urinalysis is concerning for infection. BNP elevated consistent with CHF. Troponin negative. Imaging studies: Chest x-ray concerning for CHF. Consultation: A consultation was placed with the hospitalist. The case was discussed and diagnostics were reviewed. The patient was evaluated in the ER for further treatment. IMPRESSION: CHF UTI Hypoxia Hyperglycemia PLAN: Admitted The scribe's documentation has been prepared under my direction and personally reviewed by me in its entirety. I confirm that the note above accurately reflects all work, treatment, procedures, and medical decision making performed by me. Impression & Plan CHF (congestive heart failure), Hypoxia, Acute UTI, Acute hyperglycemia Past Med/Surg History Medical History A-fib (Acute) Acute diastolic heart failure Cellulitis (Chronic) Diabetes 1.5, managed as type 2 (Chronic) Glaucoma (Chronic) HTN (hypertension) (Chronic) Hydrocele (Chronic) Leg ulcer (Acute) Scrotal mass (Chronic) Sepsis (Chronic) Small intestine obstruction (Chronic) Spastic paralysis (Chronic) Urinary retention (Chronic) UTI (urinary tract infection) (Chronic) Surgical History History of toe surgery (Chronic) S/P TURP (Chronic) Family History Other No significant family history Social History Preferred Language: Nigerien Communication Ability: Effective Professor Of Radiology Required: No Beliefs That Will Affect Care: None Current Living Situation: Alone Feels Safe at Home: Yes Smoking Status: Former smoker Tobacco Type: cigarettes ; Cigarettes Per Day: about 45 years ago ; Second Hand Exposure: No ; Hx Alcohol Use: No Hx Substance Use: No Results & Data Vital Signs Vital Signs - 24 hr 06/17/19 20:32 06/17/19 21:15 06/17/19 22:10 Temperature 36.5 C Temperature Source Oral Pulse Rate 109 H Pulse Rate [Apical] 87 Pulse Rhythm [Apical] Irregular Respiratory Rate 26 H 18 Respiratory Effort / Characteristics Labored Non-Labored Respiratory Depth Normal Blood Pressure 147/93 H Blood Pressure [Right Arm] 146/85 H Blood Pressure Mean 111 Blood Pressure Mean [Right Arm] 105 Blood Pressure Position [Right Arm] Standing Pulse Oximetry 88 L 98 99 Oxygen Delivery Method Room Air Nasal Cannula Nasal Cannula Oxygen Flow Rate 2 Sepsis Recent Fever Within 48 Hours No Sepsis New/Unexplained Change in Mental Status No Sepsis Action Taken by Nursing No Action Required Oxygen Flow Rate - Titration 2 Pulse Oximetry Post Tiitration 99 06/17/19 22:44 06/17/19 23:39 Temperature Temperature Source Pulse Rate Pulse Rate [Apical] 95 H 98 H Pulse Rhythm [Apical] Irregular Irregular Respiratory Rate 18 20 Respiratory Effort / Characteristics Non-Labored Spontaneous Respiratory Depth Normal Blood Pressure Blood Pressure [Right Arm] 129/96 139/68 Blood Pressure Mean Blood Pressure Mean [Right Arm] 107 91 Blood Pressure Position [Right Arm] Sitting Pulse Oximetry 99 98 Oxygen Delivery Method Nasal Cannula Nasal Cannula Oxygen Flow Rate 2 2 Sepsis Recent Fever Within 48 Hours Sepsis New/Unexplained Change in Mental Status Sepsis Action Taken by Nursing Oxygen Flow Rate - Titration Pulse Oximetry Post Tiitration Home Medications Current Medication List: was personally reviewed by me Laboratory Data Attestation: I reviewed the patient's lab results. Result diagrams: 06/17/19 20:24 06/17/19 20:24 Lab Results 06/17/19 06/17/19 06/17/19 Range/Units 20:24 20:24 20:24 WBC 9.40 (4.8-10.8) K/uL RBC 4.92 (4.7-6.1) M/uL Hgb 12.4 L (14.0-18.0) g/dL Hct 42.0 (42-52) % MCV 85.4 (80-100) fL MCH 25.2 (25-34) pg MCHC 29.5 L (32-36) g/dL RDW Std Deviation 52.9 H (36.4-46.3) fL RDW Coeff of Ad 17.1 H (11.5-14.5) % Plt Count 386 (130-400) K/uL MPV 10.7 H (7.4-10.4) fL Immature Gran % (Auto) 0.1 % Neut % (Auto) 77.0 % Lymph % (Auto) 11.0 % [place] % (Auto) 7.9 % Eos % (Auto) 3.8 % Baso % (Auto) 0.2 % Immature Gran # (Auto) 0.01 (0.00-0.02) K/uL Neut # (Auto) 7.24 H (1.4-6.5) K/uL Lymph # (Auto) 1.03 L (1.2-3.4) K/uL [place] # (Auto) 0.74 H (0.11-0.59) K/uL Eos # (Auto) 0.36 (0-0.5) K/uL Baso # (Auto) 0.02 (0-0.2) K/uL PT 11.8 (9.0-12.0) Seconds INR 1.2 H (0.9-1.1) APTT 32.5 H (21.0-31.0) Seconds PTT Ratio 1.2 Sodium 141 (136-145) mmol/L Potassium 4.0 (3.5-5.1) mmol/L Chloride 105 (98-107) mmol/L Carbon Dioxide 32 (21-32) mmol/L Anion Gap 4.0 (3-11) BUN 34 H (7-18) mg/dl Creatinine 1.27 (0.6-1.4) mg/dl Est Cr Clr Drug Dosing 60.7 ml/min Est GFR ( Amer) 64.1 Est GFR (Non-Af Amer) 55.3 BUN/Creatinine Ratio 27.1 H (10-20) Glucose 254 H (70-99) mg/dl Calcium 9.2 (8.5-10.1) mg/dl Total Bilirubin 1.0 (0.2-1) mg/dl AST 11 L (15-37) U/L ALT 19 (12-78) U/L Alkaline Phosphatase 167 H (45-117) U/L Troponin I < 0.015 (0-0.045) ng/ml NT-Pro-B Natriuret Pep 5685 H (0-900) pg/ml Total Protein 7.8 (6.4-8.2) gm/dl Albumin 3.2 L (3.4-5.0) gm/dl Globulin 4.6 H (2.5-4.0) gm/dl Albumin/Globulin Ratio 0.7 L (0.9-2) Urine Color Urine Appearance (Clear) Urine pH (4.5-7.5) Ur Specific [place] (1.000-1.030) Urine Protein (Negative) Urine Glucose (UA) (Negative) Urine Ketones (Negative) Urine Blood (Negative) Urine Nitrite (Negative) Urine Bilirubin (Negative) Urine Urobilinogen (Negative) Ur Leukocyte Esterase (Negative) Urine WBC (Auto) (0-5) /hpf Urine RBC (Auto) (0-4) /hpf U Hyaline Cast (Auto) (0-5) /lpf U Epithel Cells (Auto) (0-5) /lpf Urine Bacteria (Auto) (Negative) Urine Yeast 06/17/19 Range/Units 22:10 WBC (4.8-10.8) K/uL RBC (4.7-6.1) M/uL Hgb (14.0-18.0) g/dL Hct (42-52) % MCV (80-100) fL MCH (25-34) pg MCHC (32-36) g/dL RDW Std Deviation (36.4-46.3) fL RDW Coeff of Da (11.5-14.5) % Plt Count (130-400) K/uL MPV (7.4-10.4) fL Immature Gran % (Auto) % Neut % (Auto) % Lymph % (Auto) % [place] % (Auto) % Eos % (Auto) % Baso % (Auto) % Immature Gran # (Auto) (0.00-0.02) K/uL Neut # (Auto) (1.4-6.5) K/uL Lymph # (Auto) (1.2-3.4) K/uL [place] # (Auto) (0.11-0.59) K/uL Eos # (Auto) (0-0.5) K/uL Baso # (Auto) (0-0.2) K/uL PT (9.0-12.0) Seconds INR (0.9-1.1) APTT (21.0-31.0) Seconds PTT Ratio Sodium (136-145) mmol/L Potassium (3.5-5.1) mmol/L Chloride (98-107) mmol/L Carbon Dioxide (21-32) mmol/L Anion Gap (3-11) BUN (7-18) mg/dl Creatinine (0.6-1.4) mg/dl Est Cr Clr Drug Dosing ml/min Est GFR ( Amer) Est GFR (Non-Af Amer) BUN/Creatinine Ratio (10-20) Glucose (70-99) mg/dl Calcium (8.5-10.1) mg/dl Total Bilirubin (0.2-1) mg/dl AST (15-37) U/L ALT (12-78) U/L Alkaline Phosphatase (45-117) U/L Troponin I (0-0.045) ng/ml NT-Pro-B Natriuret Pep (0-900) pg/ml Total Protein (6.4-8.2) gm/dl Albumin (3.4-5.0) gm/dl Globulin (2.5-4.0) gm/dl Albumin/Globulin Ratio (0.9-2) Urine Color Yellow Urine Appearance Cloudy A (Clear) Urine pH 5.5 (4.5-7.5) Ur Specific [place] 1.012 (1.000-1.030) Urine Protein 2+ H (Negative) Urine Glucose (UA) Negative (Negative) Urine Ketones Negative (Negative) Urine Blood Trace H (Negative) Urine Nitrite Positive A (Negative) Urine Bilirubin Negative (Negative) Urine Urobilinogen Negative (Negative) Ur Leukocyte Esterase 1+ H (Negative) Urine WBC (Auto) >30 H (0-5) /hpf Urine RBC (Auto) 0-4 (0-4) /hpf U Hyaline Cast (Auto) 10-30 H (0-5) /lpf U Epithel Cells (Auto) 5-10 H (0-5) /lpf Urine Bacteria (Auto) 4+ H (Negative) Urine Yeast Not Reportable Administered Medications Discontinued Medications Furosemide (Lasix) 40 mg IV NOW STA Stop: 06/17/19 21:08 Last Admin: 06/17/19 22:01 Dose: 40 mg Documented by: [id number] Ceftriaxone Sodium (Rocephin) 2,000 mg in 70 mls @ 140 mls/hr IV NOW STA Stop: 06/17/19 23:00 Last Infusion: 06/17/19 23:38 Dose: 0 mls/hr Documented by: [id number] Admin: 06/17/19 22:51 Dose: 140 mls/hr Documented by: [id number] Nitroglycerin (Nitro-Bid 2%) 0.25 inch EXT NOW STA Stop: 06/17/19 21:08 Last Admin: 06/17/19 22:02 Dose: 0.25 inch Documented by: [id number] Imaging Data Radiologist's Impression: Radiology results as stated below per my review and the radiologist's interpretation: SINGLE VIEW CHEST CLINICAL HISTORY: Dyspnea. FINDINGS: An AP, portable, upright chest radiograph is compared to study dated 05/07/2019. The examination is degraded by portable technique and patient rotation. A single lead cardiac pacemaker is unchanged in position. The heart is enlarged noting atherosclerotic calcification of the thoracic aorta. There is pulmonary vascular congestion and interstitial edema. There are layering pleural effusions with bibasilar consolidation. No pneumothorax is seen. The skeletal structures are osteopenic. The bony thorax is grossly intact. IMPRESSION: 1. Cardiomegaly and cardiac pacemaker. There is evidence of congestive failure and interstitial edema. 2. Layering pleural effusions with bibasilar consolidation. ACT 112: Negative or not required by law. Electronically signed by: Chandra Hammer M.D. 06/17/2019 9:21 PM ECG Data Attestation: I personally reviewed and interpreted this ECG as follows: Indication: + SOB/dyspnea Rate (beats per minute): 99 Rhythm: atrial fibrillation ECG Intervals/blocks: + Right Bundle branch block ECG [place]: + Normal ECG ST segments: + T-wave inversions (Inferior); no ST elevation ECG Findings: no PVCs Comparison ECG Date: from (05/04/19) Change: no significant change Blood Pressure Blood Pressure Findings: Elevated blood pressure Blood Pressure Disposition: further management by hospitalist Discharge Plan Visit Data Chief Complaint: Shortness of Breath/Dyspnea Stated Complaint: SOB ED Provider: Armand Vences Discharge Problem: CHF (congestive heart failure), Hypoxia, Acute UTI, Acute hyperglycemia Patient Disposition: Being Evaluated by Hospitalist Forms Stand Alone Forms: [facility] Prescriptions Prescriptions: No Action apixaban 5 mg tablet 5 mg PO BID RF: 0 lisinopril 40 mg tablet 40 mg PO QAM RF: 0 methenamine hippurate 1 gram tablet 1 gm PO QPM RF: 0 furosemide 20 mg tablet 40 mg PO BID RF: 0 baclofen 10 mg tablet 10 mg PO QID RF: 0 trazodone 50 mg tablet 50 mg PO DAILY Qty: 30 RF: 5 multivitamin Tablet 1 tab PO QAM RF: 0 potassium chloride [Klor-Con M20] 20 mEq tablet,ER particles/crystals 40 meq PO QAM RF: 0 metoprolol tartrate [Lopressor] 50 mg tablet 75 mg PO BID RF: 0 sertraline [Zoloft] 50 mg tablet 100 mg PO DAILY@1300 RF: 0 furosemide [Lasix] 20 mg tablet 20 mg PO PM RF: 0 aspirin 81 mg Tablet,Delayed Release (Dr/Ec) 81 mg PO QAM RF: 0 ondansetron 4 mg Tablet,Disintegrating 4 mg PO DAILY PRN (Reason: Nausea And Vomiting) RF: 0 Referrals Referrals: Jm Carrillo III, MD [Primary Care Provider] - The scribe's documentation has been prepared under my direction and personally reviewed by me in its entirety. I confirm that the note above accurately reflects all work, treatment, procedures, and medical decision making performed by me.
--- NOTE | 2019-06-18 00:13 | History & Physical Report ---
Date of Service June 18, 2019 Assessment & Plan (1) Acute on chronic diastolic CHF (congestive heart failure): 74-year-old male was admitted on 18 June 2019 for shortness of breath, peripheral edema, acute on chronic heart failure. Of note, patient has been admitted multiple times this year. In October he was admitted twice for A. fib and heart failure. He was then admitted in December and April for heart failure. [place] [facility] [place], discharged on . Shortness of breath, acute on chronic diastolic CHF: Patient notes progressive worsening of bilateral leg swelling over the past couple of days. Some increased shortness of breath this evening. Denies any fevers or feeling of illness. He has bilateral weeping shins distally. - Admit weight 97.2 kg, most recent comparison on is 93.6 kg. TTE noted EF 55-60% with multiple other abnormalities (see full report). At home is on Lasix 40 mg in the a.m. and 60 mg in p.m. - In the ED, afebrile, borderline tachycardic, initially tachypneic, with initial SpO2 88% on room air. WBC 9. BNP 5685, similar to Nov. TnI negative. pCXR suggestive of congestive failure and edema as well as pleural effusions. - In the ED, SpO2 improved to 99% on 2 L NC. Was treated with 1/4 inch of nitroglycerin paste and Lasix 40 mg IV x1. - Continue supplemental oxygen for goal SpO2 > 90%. Keep on lasix 40 mg IV BID for now. Daily weights and watch UOP. Bilateral leg erythema, left heel pain: There is generalized leg erythema which is likely contributed to his edema and some chronic venous stasis. However, he has some black crusting discoloration of the toes and complains of LEFT heel pain. His baseline paraplegia limits overall sensation. Of note, he was seen by orthopedics back on for a possible open fracture of his RIGHT great toe. Advised medical treatment at that time. Some worry that he may have a local soft tissue vs bony infection. - Will x-ray his bilateral feet. Consult wound care for his weeping legs. Antibiotics as below (cefepime should cover for pseudomonas). Complicated UTI, acute kidney injury, urinary retention and chronic indwelling catheter: Admit Cr 1.27 (last comparison 0.97) with BUN 34. UA with multiple abnormalities. Urine culture sent. Last positive UCx in Apr was MDR E. faecalis. Is on methenamine at home. - In ED, given a single dose of ceftriaxone 2 gm IV. - Will keep on lisinopril for now for its heart failure benefits. May need to stop if creatinine continues to rise. Ordered vanc and cefepime to cover for complicated UTI empirically pending UCx results. Anemia: Admit hemoglobin 12.4. Although not listed in previous notes is a chronic issue, is persistently in the 11s range. No evidence of acute bleeding. Monitor for now. Elevated alkaline phosphatase: Admit AP 167. Some recent comparison similarly elevated. Remaining LFTs are okay. No noted abdominal symptoms. Ongoing medical issues: - Hypertension, peripheral arterial disease, sinus arrest: Pacemaker placed October 2018. Continue home aspirin, lisinopril, metoprolol, potassium. - Permanent atrial fibrillation: Rate controlled. On apixaban. - Diabetes type 2: 11Nov A1c was 8.1. Does not seem to be on any diabetic drugs at home. Will place on insulin sliding scale here. - Spastic paralysis, paraplegia: Continue home baclofen. - Insomnia: Reportedly Ambien caused hallucinations. Continue home trazodone. - Depression/anxiety: Continue home Zoloft. - ? Small pancreatic cystic lesion: Noted in [facility] [place], recommended GI follow up. Code status: DNR/DNI (confirmed with patient on this admit). Diet: Diabetic, fluid restriction, low salt, nectar thick liquids (see speech therapy recs in [facility] [place] paperwork). DVT prophy: Apixaban. PT/OT: Deferred on admit. Disbo: Admit to [facility] telemetry. Will consult case management on admit, as he currently lives at home alone and has had multiple admissions this year. (2) Leg erythema: (3) Pain of left heel: (4) Complicated UTI (urinary tract infection): (5) Acute kidney injury: (6) Urinary retention: (7) Chronic indwelling Coon catheter: (8) Anemia: (9) Elevated alkaline phosphatase level: (10) HBP (high blood pressure): (11) Peripheral arterial disease: (12) Sinus arrest: (13) Atrial fibrillation: (14) Diabetes mellitus: (15) Spastic paralysis: (16) Paraplegia: (17) Insomnia: (18) Depression with anxiety: (19) Pancreatic cyst: History of Present Illness Primary Care Provider: Jm Carrillo MD 74-year-old male presents stating that he has noticed increased swelling in both of his legs over the past 3 to 4 days. He also notes some worsening shortness of breath earlier this evening. He has an extensive medical history to include congestive heart failure. He says he has been following up with cardiology and taking his Lasix as prescribed. No noted dietary indiscretions. He denies any fevers, new cough, chest or abdominal pain, or other acute concerns. He says that his legs have been their current reddish color for very long time now. When asked, he says that his left heel feels sore. At baseline he is wheelchair-bound, has spastic paraplegia, and has no functional movement of his legs. Does not wear oxygen at home. - Past medical history includes hypertension, peripheral arterial disease, cardiac pauses, chronic diastolic CHF, permanent atrial fibrillation, diabetes type 2, glaucoma, hydrocele, small bowel obstruction, spastic paralysis, UTI and urinary retention, depression, anxiety, umbilical hernia, chronic left ICA occlusion, hypophonia. - Past surgical history includes TURP, toe surgery, throat surgery. - Social history includes former smoker. Denies alcohol use. Lives at home alone but says he has multiple friends nearby to help as well as a home nursing agency. Allergies Allergy/AdvReac Type Severity Reaction Status Date / Time zolpidem [From Ambien] AdvReac hallucinati Verified 06/17/19 21:54 ons Home Medications Home Medications Medication Instructions Recorded Confirmed Type apixaban 5 mg tablet 5 mg PO BID 02/18/18 06/17/19 History lisinopril 40 mg tablet 40 mg PO QAM 02/18/18 06/17/19 History methenamine hippurate 1 gram tablet 1 gm PO QPM tab 02/18/18 06/17/19 History baclofen 10 mg tablet 10 mg PO QID tab 11/28/18 06/17/19 History metoprolol tartrate [Lopressor] 75 mg PO BID 01/20/19 06/17/19 History multivitamin 1 tab PO QAM 01/20/19 06/17/19 History potassium chloride [Klor-Con M20] 40 meq PO QAM 01/20/19 06/17/19 History sertraline [Zoloft] 100 mg PO DAILY@1300 01/20/19 06/17/19 History furosemide 20 mg tablet 20 mg PO PM tab 01/23/19 06/17/19 History aspirin 81 mg PO QAM 05/04/19 06/17/19 History ondansetron 4 mg PO DAILY PRN 05/04/19 06/17/19 History trazodone 50 mg tablet 50 mg PO DAILY #30 tab 06/13/19 06/17/19 Rx furosemide 20 mg tablet 40 mg PO BID tab 06/16/19 06/17/19 History Past Med/Surg History Medical History A-fib (Acute) Acute diastolic heart failure Cellulitis (Chronic) Diabetes 1.5, managed as type 2 (Chronic) Glaucoma (Chronic) HTN (hypertension) (Chronic) Hydrocele (Chronic) Leg ulcer (Acute) Scrotal mass (Chronic) Sepsis (Chronic) Small intestine obstruction (Chronic) Spastic paralysis (Chronic) Urinary retention (Chronic) UTI (urinary tract infection) (Chronic) Surgical History History of toe surgery (Chronic) S/P TURP (Chronic) Family History Other No significant family history Social History Preferred Language: Latvian Communication Ability: Effective Meat Boner And Slicer Required: No Beliefs That Will Affect Care: None Current Living Situation: Alone Current Living Situation Comment: 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, 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, 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 Cardiovascular: Denies any chest pain. Positive worsening bilateral lower extremity edema. Gastrointestinal: Denies any abdominal pain, nausea/vomiting/diarrhea Musculoskeletal: Denies any acute upper extremity pains, myalgias, or focal weakness. Baseline lower extremity spastic paralysis. Skin: Worsening weeping of his bilateral lower legs. Neuro: Denies any headache, acute focal weakness or numbness. See [facility] regarding swallowing. Physical Exam Physical Exam: GENERAL: Awake, alert, pleasantly conversational though does speak in only a few words at a time. Does not appear in acute distress. HENT: Normocephalic, atraumatic. Oropharynx unremarkable. EYES: Normal conjunctiva. Sclera non-icteric. NECK: Inspection normal. Supple and full ROM. No nuchal rigidity. CARDIAC: +S1S2 irregularly irregular, no murmurs. RESPIRATORY: Clear to auscultation. No wheezes or rales. Normal respiratory effort. NC oxygen in place. GI: +BS, soft, non-distended. No tenderness to palpation. No rebound or guarding. Easily reducible umbilical hernia. EXTREMITIES: The bilateral lower extremities have diffuse 2-3 plus edema up to the knees. There is associated erythema more distally including over the dorsal feet. Multiple areas of mildly broken skin with weeping. The left flanagan has two more focal areas of broken skin. No purulent discharge. Virtually all of the toes dorsally have areas of blackish skin discoloration. Patient states that he can feel sensation in his toes. He cannot move his legs with exception of minimal hip flexion bilaterally. The left heel does not have any obvious breaks in the skin or evidence of focal trauma/infection. NEURO: No gross upper extremity or cranial nerve deficits. He speaks in a few words at that time. Has a previous diagnosis of hypophonia, but difficult to tell if this is his baseline. Results & Data Vital Signs (Past 12 Hours) Vital Signs Temp Pulse Pulse Resp BP BP Pulse Ox 06/17/19 23:39 98 H 20 139/68 98 06/17/19 22:44 95 H 18 129/96 99 06/17/19 22:10 87 18 146/85 H 99 06/17/19 21:15 98 06/17/19 20:32 36.5 C 109 H 26 H 147/93 H 88 L Laboratory Results 06/17/19 06/17/19 06/17/19 Range/Units 22:10 20:24 20:24 WBC (4.8-10.8) K/uL RBC (4.7-6.1) M/uL Hgb (14.0-18.0) g/dL Hct (42-52) % MCV (80-100) fL MCH (25-34) pg MCHC (32-36) g/dL RDW Std Deviation (36.4-46.3) fL RDW Coeff of Da (11.5-14.5) % Plt Count (130-400) K/uL MPV (7.4-10.4) fL Immature Gran % (Auto) % Neut % (Auto) % Lymph % (Auto) % Dickson % (Auto) % Eos % (Auto) % Baso % (Auto) % Immature Gran # (Auto) (0.00-0.02) K/uL Neut # (Auto) (1.4-6.5) K/uL Lymph # (Auto) (1.2-3.4) K/uL Dickson # (Auto) (0.11-0.59) K/uL Eos # (Auto) (0-0.5) K/uL Baso # (Auto) (0-0.2) K/uL PT 11.8 (9.0-12.0) Seconds INR 1.2 H (0.9-1.1) APTT 32.5 H (21.0-31.0) Seconds PTT Ratio 1.2 Sodium 141 (136-145) mmol/L Potassium 4.0 (3.5-5.1) mmol/L Chloride 105 (98-107) mmol/L Carbon Dioxide 32 (21-32) mmol/L Anion Gap 4.0 (3-11) BUN 34 H (7-18) mg/dl Creatinine 1.27 (0.6-1.4) mg/dl Est Cr Clr Drug Dosing 60.7 ml/min Est GFR ( Amer) 64.1 Est GFR (Non-Af Amer) 55.3 BUN/Creatinine Ratio 27.1 H (10-20) Glucose 254 H (70-99) mg/dl Calcium 9.2 (8.5-10.1) mg/dl Total Bilirubin 1.0 (0.2-1) mg/dl AST 11 L (15-37) U/L ALT 19 (12-78) U/L Alkaline Phosphatase 167 H (45-117) U/L Troponin I < 0.015 (0-0.045) ng/ml NT-Pro-B Natriuret Pep 5685 H (0-900) pg/ml Total Protein 7.8 (6.4-8.2) gm/dl Albumin 3.2 L (3.4-5.0) gm/dl Globulin 4.6 H (2.5-4.0) gm/dl Albumin/Globulin Ratio 0.7 L (0.9-2) Urine Color Yellow Urine Appearance Cloudy A (Clear) Urine pH 5.5 (4.5-7.5) Ur Specific [place] 1.012 (1.000-1.030) Urine Protein 2+ H (Negative) Urine Glucose (UA) Negative (Negative) Urine Ketones Negative (Negative) Urine Blood Trace H (Negative) Urine Nitrite Positive A (Negative) Urine Bilirubin Negative (Negative) Urine Urobilinogen Negative (Negative) Ur Leukocyte Esterase 1+ H (Negative) Urine WBC (Auto) >30 H (0-5) /hpf Urine RBC (Auto) 0-4 (0-4) /hpf U Hyaline Cast (Auto) 10-30 H (0-5) /lpf U Epithel Cells (Auto) 5-10 H (0-5) /lpf Urine Bacteria (Auto) 4+ H (Negative) Urine Yeast Not Reportable 06/17/19 Range/Units 20:24 WBC 9.40 (4.8-10.8) K/uL RBC 4.92 (4.7-6.1) M/uL Hgb 12.4 L (14.0-18.0) g/dL Hct 42.0 (42-52) % MCV 85.4 (80-100) fL MCH 25.2 (25-34) pg MCHC 29.5 L (32-36) g/dL RDW Std Deviation 52.9 H (36.4-46.3) fL RDW Coeff of Da 17.1 H (11.5-14.5) % Plt Count 386 (130-400) K/uL MPV 10.7 H (7.4-10.4) fL Immature Gran % (Auto) 0.1 % Neut % (Auto) 77.0 % Lymph % (Auto) 11.0 % Dickson % (Auto) 7.9 % Eos % (Auto) 3.8 % Baso % (Auto) 0.2 % Immature Gran # (Auto) 0.01 (0.00-0.02) K/uL Neut # (Auto) 7.24 H (1.4-6.5) K/uL Lymph # (Auto) 1.03 L (1.2-3.4) K/uL Dickson # (Auto) 0.74 H (0.11-0.59) K/uL Eos # (Auto) 0.36 (0-0.5) K/uL Baso # (Auto) 0.02 (0-0.2) K/uL PT (9.0-12.0) Seconds INR (0.9-1.1) APTT (21.0-31.0) Seconds PTT Ratio Sodium (136-145) mmol/L Potassium (3.5-5.1) mmol/L Chloride (98-107) mmol/L Carbon Dioxide (21-32) mmol/L Anion Gap (3-11) BUN (7-18) mg/dl Creatinine (0.6-1.4) mg/dl Est Cr Clr Drug Dosing ml/min Est GFR ( Amer) Est GFR (Non-Af Amer) BUN/Creatinine Ratio (10-20) Glucose (70-99) mg/dl Calcium (8.5-10.1) mg/dl Total Bilirubin (0.2-1) mg/dl AST (15-37) U/L ALT (12-78) U/L Alkaline Phosphatase (45-117) U/L Troponin I (0-0.045) ng/ml NT-Pro-B Natriuret Pep (0-900) pg/ml Total Protein (6.4-8.2) gm/dl Albumin (3.4-5.0) gm/dl Globulin (2.5-4.0) gm/dl Albumin/Globulin Ratio (0.9-2) Urine Color Urine Appearance (Clear) Urine pH (4.5-7.5) Ur Specific [place] (1.000-1.030) Urine Protein (Negative) Urine Glucose (UA) (Negative) Urine Ketones (Negative) Urine Blood (Negative) Urine Nitrite (Negative) Urine Bilirubin (Negative) Urine Urobilinogen (Negative) Ur Leukocyte Esterase (Negative) Urine WBC (Auto) (0-5) /hpf Urine RBC (Auto) (0-4) /hpf U Hyaline Cast (Auto) (0-5) /lpf U Epithel Cells (Auto) (0-5) /lpf Urine Bacteria (Auto) (Negative) Urine Yeast Medications Administered Discontinued Medications Furosemide (Lasix) 40 mg IV NOW STA Stop: 06/17/19 21:08 Last Admin: 06/17/19 22:01 Dose: 40 mg Documented by: [id number] Ceftriaxone Sodium (Rocephin) 2,000 mg in 70 mls @ 140 mls/hr IV NOW STA Stop: 06/17/19 23:00 Last Infusion: 06/17/19 23:38 Dose: 0 mls/hr Documented by: [id number] Admin: 06/17/19 22:51 Dose: 140 mls/hr Documented by: [id number] Nitroglycerin (Nitro-Bid 2%) 0.25 inch EXT NOW STA Stop: 06/17/19 21:08 Last Admin: 06/17/19 22:02 Dose: 0.25 inch Documented by: [id number] Code Status & VTE Plan Code Status DNR/DNI (confirmed with patient on this admit) Supervising Physician Co-Signing Physician Notes Attending addendum: I have physically seen this patient, have supervised the medical residents activities, and agree with the H&P unless as otherwise noted. Assessment and Plan: Acute on chronic diastolic CHF- The patient will be admitted to telemetry for serial cardiac enzymes, serial EKG's, cardiac rhythm monitoring. Most recent echo on 05/05/2019 showed EF 55 to 60%. Given Lasix 40 mg IV in ED and 1/4 inch nitroglycerin paste. Admit on Lasix 40 mg IV twice daily. Follow serial BMP and magnesium levels. Several recent hospitalizations this year. Bilateral lower extremity cellulitis/heel injuries- Placed on vancomycin IV and cefepime IV. Consult wound care. Assessment for possible osteomyelitis to begin with x-rays. Remainder of orders and notations as noted. Resident Activity Tracking Resident Involvement: Resident Care Provided Care Provided: Adult Hospital Medicine (1) Diabetes mellitus Diabetes mellitus complication status: with skin complications Diabetes mellitus parts counterman insulin use: without parts counterman use Diabetes mellitus type: type 2 (2) Atrial fibrillation Atrial fibrillation type: chronic Qualified Code(s): I48.2 - Chronic atrial fibrillation
[2019-06-18] MEDS ORDERED: CARBOHYDRATES FOR HYPOGLYCEMIA PO PRN (01:48)
[2019-06-18] MEDS ORDERED: GLUCOSE 10 TABS/TUBE PO PRN (01:48)
[2019-06-18] MEDS ORDERED: VANCOMYCIN CONSULT ACTIVE PRN (01:48)
[2019-06-18] MEDS ORDERED: GLUCOSE 40% GEL 15 GM TUBE PO PRN (01:48)
[2019-06-18] MEDS ORDERED: DEXTROSE 50% 50 ML SYRINGE IV PRN (01:48)
[2019-06-18] MEDS ORDERED: GLUCAGON FOR INJ 1 MG VIAL SQ PRN (01:48)
[2019-06-18] MEDS ORDERED: ONDANSETRON 4 MG OD TAB PO PRN (01:58)
[2019-06-18] MEDS: VANCOMYCIN HCL 2,250 MG in SODIUM CHLORIDE 0.9% 500 ML IV ONE ×2 (02:33→02:56)
[2019-06-18] MEDS: ACETAMINOPHEN 325 MG TAB PO PRN (03:22)
[2019-06-18] MEDS: CEFEPIME 2,000 MG in SYRINGE 7.5 ML IV SCH ×2 (05:27→12:33)
[2019-06-18] MEDS: METOPROLOL TARTRATE 25 MG TAB PO SCH ×2 (07:43→21:01)
[2019-06-18] MEDS: POTASSIUM CHLORIDE 20 MEQ TABCR PO SCH (07:43)
[2019-06-18] MEDS: MULTIVITAMIN TAB PO SCH (07:44)
[2019-06-18] MEDS: ASPIRIN 81 MG ECTAB PO SCH (07:44)
[2019-06-18] MEDS: APIXABAN 5 MG TABLET PO SCH ×2 (07:45→21:00)
[2019-06-18] MEDS: lisinopriL 40 MG TAB PO SCH (07:46)
[2019-06-18] MEDS ORDERED: COUGH DROP (SUGAR FREE) LOZ 24 LOZ/1 BOX BUCCAL ONE (08:22)
--- NOTE | 2019-06-18 08:53 | Pharmacy Report ---
Pharmacy Abx Initial Consult - Date of Service June 18, 2019 - Pharmacy Dosing Scope Date of Consult: 06/18/19 Consultation requested by: Dr. Galaviz Pharmacy is consulted to initiate Vancomycin IV dosing therapy, order appropriate labs and adjust drug dose/frequency. - Subjective The patient is a 74 year old M admitted on 06/18/19 00:45. - Objective Height: 5 ft 11 in Weight: 93.416 kg Vital Signs (Past 12hrs): Vital Signs Temp Pulse Pulse Pulse Resp BP BP 06/18/19 07:33 36.7 C 83 22 143/79 H 06/18/19 03:58 36.4 C L 85 20 135/76 06/18/19 03:20 83 06/18/19 01:52 36.7 C 93 H 24 139/87 06/18/19 01:48 36.5 C 80 22 137/77 06/17/19 23:39 98 H 20 139/68 06/17/19 22:44 95 H 18 129/96 06/17/19 22:10 87 18 146/85 H 06/17/19 21:15 Pulse Ox Pulse Ox 06/18/19 07:33 96 06/18/19 03:58 96 06/18/19 03:20 06/18/19 01:52 98 06/18/19 01:48 98 98 06/17/19 23:39 98 06/17/19 22:44 99 06/17/19 22:10 99 06/17/19 21:15 98 Lab Results (24hrs): Laboratory Tests (24 Hours) 06/17/19 06/17/19 20:24 20:24 WBC 9.40 Neut # (Auto) 7.24 H Creatinine 1.27 Est Cr Clr Drug Dosing 60.7 Micro Results: 06/18/19 02:15 Aerobic Blood Culture - Pending Blood Anaerobic Blood Culture - Pending 06/18/19 02:15 Aerobic Blood Culture - Pending Blood Anaerobic Blood Culture - Pending - Risk Factors for Resistance * Hospitalization for 48 hours or more within the past 90 days * History of infection with a multidrug-resistant organism: E. faecalis in Urine Culture on 05/05/19 * Resistant to fluoroquinolones, aminoglycosides and tetracyclines * Antimicrobial use within the last 90 days: * Methenamine, Cefepime, Cefazolin - Assessment & Plan Assessment 74 year old M admitted on 06/18 secondary to bilateral lower extremity edema as well as progressive dyspnea PMHx significant for T2DM, HTN, HF, Afib and spastic paraplegia Patient is wheelchair bound and has chronic pedraza cath leading to chronic UTIs secondary to spastic paraplegia Does live at home with help Recently hospitalized from 05/05/19-05/08/19 secondary to toe fracture Was treated with cefazolin, cefepime and methenamine Patient presented afebrile, normotensive, WBCs 9400, SCr 1.27 (Baseline approx. 1.0) Blood cultures pending, prelim urine culture growing GNB Patient receive rocephin 2 g IV x 1 in ED, now started on vanc and cefepime pending culture results Plan Vancomycin and Cefepime for treatment of Complicated UTI Vancomycin IV * Estimated PK Parameters: Vd 0.65 L/kg, Ugo 0.055 hr-1, t1/2 13 hrs * Loading dose: 2250 mg (24 mg/kg) * Maintenance dose: 1500 mg IV (16 mg/kg) every 16 hours * Goal trough level for UTI: 15 to 20 mcg/mL * Trough level ordered for 06/20/19 @ 1730 prior to the 5th maintenance dose to reflect steady state level Cefepime * 2 g IV every 8 hours * Current eCrCl 60.7 mL/min * Will monitor renal function as cefepime dose will need adjusted if eCrCl < 60 mL/min Pharmacy will continue to follow and will adjust dose/frequency as necessary. Thank you.
[2019-06-18] MEDS ORDERED: FUROSEMIDE 40 MG/4 ML VIAL IV SCH (09:00)
[2019-06-18] MEDS: FUROSEMIDE 40 MG in SYRINGE 0 ML IV SCH ×2 (09:11→16:25)
[2019-06-18] MEDS: BACLOFEN 10 MG TAB PO SCH ×4 (09:11→21:01)
[2019-06-18] MEDS: INSULIN ASPART 100 UNITS/ML 3 ML PEN SC SCH ×4 (09:13→21:02)
--- NOTE | 2019-06-18 09:51 | XRay Report ---
XR foot LT min 3V routine CLINICAL HISTORY: left heel pain, toe discoloration, eval for osteo COMPARISON: None FINDINGS: The left foot soft tissue swelling is noted. There is extensive vascular calcification. No acute fracture. There is mild posterior and minimal plantar calcaneal spurring. There is mild perios teal thickening along the proximal lateral shaft of the left fifth metatarsal. No definite bony destr uction is present. IMPRESSION: 1. No acute fracture. 2. Mild periosteal thickening/reaction along the proximal lateral shaft of the left fifth metatarsal. This represents a nonspecific finding and osteomyelitis cannot be excluded. ACT 112: Negative or not required by law. Electronically signed by: Redd Fan M.D. 06/18/2019 9:49 AM
--- NOTE | 2019-06-18 09:52 | XRay Report ---
XR foot RT min 3V routine CLINICAL HISTORY: ? toe infection, prior toe trauma, eval for osteo COMPARISON: Right foot radiographs May 04, 2019. FINDINGS: Extensive vascular calcification is noted. There is right foot soft tissue swelling. There is been near complete interval healing of the nondisplaced fracture within the lateral base of the d istal phalanx of the right first toe. No acute fracture is present. There is no evidence for osteomye litis within the right foot. IMPRESSION: 1. Near complete interval healing of the nondisplaced fracture within the distal phalanx of the right first toe. 2. No evidence for osteomyelitis within the right foot. ACT 112: Negative or not required by law. Electronically signed by: Redd Fan M.D. 06/18/2019 9:51 AM
[2019-06-18] MEDS: SERTRALINE HCL 100 MG TABLET PO SCH (12:31)
[2019-06-18] MEDS ORDERED: VANCOMYCIN HCL 1,500 MG in SODIUM CHLORIDE 0.9% 500 ML IV SCH (18:00)
--- NOTE | 2019-06-18 20:08 | Communication Note ---
Date of Service: June 18, 2019 Patient seen and examined. Admitting provider already charged for today's encounter. Patient admitted for shortness of breath. Antibiotics were discont inued as no clear infection. Very difficult to rule out cellulitis in his legs but no WBC or fevers therefore will elect to watch for improvement of erythema with diuresis rather than treat with antibiotics current. No acute altered mental status, urine change or suprapubic pain to suggest catheter associated UTI even if positive for bacteria. Will continue patient on IV lasix 40mg BID and trend renal function. As per his baseline he appears to have 6-7lb to loose.
[2019-06-18] MEDS: TRAZODONE HCL 50 MG TAB PO SCH (20:59)
[2019-06-18] MEDS: METHENAMINE HIPPURATE 1 GM TAB PO SCH (21:01)
[2019-06-19 06:13] LABS: Basophils # (auto) 0.02 K/uL (0-0.2); Basophils % (auto) 0.2 %; Eosinophils # (auto) 0.27 K/uL (0-0.5); Eosinophils % (auto) 3.1 %; Hemoglobin 10.6 g/dL (14.0-18.0); Immature Granulocytes # (auto) 0.02 K/uL (0.00-0.02); Immature Granulocytes % (auto) 0.2 %; Lymphocytes # (auto) 0.78 K/uL (1.2-3.4); Lymphocytes % (auto) 8.9 %; Mean Corpuscular Hemoglobin 25.7 pg (25-34); Mean Corpuscular Hgb Conc 29.4 g/dL (32-36); Mean Corpuscular Volume 87.2 fL (80-100); Monocytes # (auto) 0.77 K/uL (0.11-0.59); Monocytes % (auto) 8.8 %; Neutrophils % (auto) 78.8 %; Platelet Count 320 K/uL (130-400); RDW Coefficient of Variation 16.8 % (11.5-14.5); RDW Standard Deviation 53.4 fL (36.4-46.3); Red Blood Count 4.13 M/uL (4.7-6.1); White Blood Count 8.76 K/uL (4.8-10.8)
[2019-06-19 06:21] LABS: BUN Creatinine Ratio 23.6 (10-20); Calcium 8.4 mg/dl (8.5-10.1); Creatinine Clr Calc Pharmacy 65.7 ml/min; Est GFR (African American) 80.7; Est GFR (Non-African American) 69.6; Magnesium 2.1 mg/dl (1.8-2.4); Potassium 3.8 mmol/L (3.5-5.1)
[2019-06-19] MEDS: ASPIRIN 81 MG ECTAB PO SCH ×2 (09:06→12:48)
[2019-06-19] MEDS: METOPROLOL TARTRATE 25 MG TAB PO SCH (09:07)
[2019-06-19] MEDS: BACLOFEN 10 MG TAB PO SCH ×5 (09:07→20:57)
[2019-06-19] MEDS: MULTIVITAMIN TAB PO SCH ×2 (09:07→12:49)
[2019-06-19] MEDS: lisinopriL 40 MG TAB PO SCH (09:08)
[2019-06-19] MEDS: APIXABAN 5 MG TABLET PO SCH ×3 (09:08→20:59)
[2019-06-19] MEDS: FUROSEMIDE 40 MG in SYRINGE 0 ML IV SCH ×2 (09:08→16:13)
[2019-06-19] MEDS: POTASSIUM CHLORIDE 20 MEQ TABCR PO SCH ×2 (09:08→12:49)
[2019-06-19] MEDS: INSULIN ASPART 100 UNITS/ML 3 ML PEN SC SCH ×4 (09:09→21:02)
[2019-06-19] MEDS ORDERED: VANCOMYCIN CONSULT ACTIVE PRN (11:23)
--- NOTE | 2019-06-19 12:09 | CT Scan Report ---
CT head/brain wo con CLINICAL HISTORY: sudden onset dysphonia COMPARISON STUDY: MRI the brain dated 05/08/2019 TECHNIQUE: Axial CT of the brain is performed from the vertex to the skull base. IV contrast was not administered for this examination. A dose lowering technique was utilized adhering to the principles of ALARA. CT DOSE: 1624.34 mGycm FINDINGS: No intra or extra-axial mass lesions are visualized. There is no CT evidence of acute cortical infarc tion. There is no evidence of midline shift. There is no acute hemorrhage. No calvarial fractures ar e visualized. There are patchy white matter hypodensities likely on a small vessel basis. There is no evidence of pathologic ventricular dilatation. There is no evidence of acute sinusitis IMPRESSION: No acute intracranial findings ACT 112: Negative or not required by law. Electronically signed by: Bill Isaacs M.D. 06/19/2019 12:07 PM
[2019-06-19] MEDS ORDERED: VANCOMYCIN HCL 2,000 MG in SODIUM CHLORIDE 0.9% 500 ML IV ONE (12:30)
[2019-06-19] MEDS: SERTRALINE HCL 100 MG TABLET PO SCH (12:49)
[2019-06-19] MEDS: CEFEPIME 2,000 MG in SYRINGE 7.5 ML IV SCH ×2 (13:11→20:57)
[2019-06-19] MEDS: TRAZODONE HCL 50 MG TAB PO SCH (20:58)
[2019-06-19] MEDS: METHENAMINE HIPPURATE 1 GM TAB PO SCH (20:59)
[2019-06-19] MEDS ORDERED: METOPROLOL TARTRATE 100 MG TAB PO ONE (21:00)
--- NOTE | 2019-06-19 23:59 | Hospitalist Progress Note ---
Date of Service June 19, 2019 Assessment & Plan (1) Lower extremity cellulitis: Restarted on vancomycin and Cefepime. Appearance much clearer today of cellulitis (2) Hypophonia: Concern for similar etiology for which he was transferred to [place] on last admission. Discussed with [place] stroke neurology and recommended tele- stroke call. Discussed with Dr Vishnu sheffield stroke suspected. Discussed with prior provider and suspect the patient get's very dry with lasix and reduced fluid intake causing his mouth to dry out excessively. Will reduce lasix to 20mg IV tomorrow. (3) Acute on chronic diastolic CHF (congestive heart failure): Shortness of breath, acute on chronic diastolic CHF: Patient notes progressive worsening of bilateral leg swelling over the past couple of days. - significantly reduced leg swelling - reduce lasix to 20mg IV daily given excessive dehydration at present although renal function remains stable. (4) Urinary retention: Chronic pedraza catheter use. (5) Anemia: Chronic stable. Normocytic. No further inpatient workup planned (6) Peripheral arterial disease: Pulses noted in feet b/l with cap refil 2-3 seconds (7) Atrial fibrillation: Chronic. Rate controlled on metorpolol Anticoagulation with Eliquis (8) Diabetes mellitus: HbA1C 8.1. BSG ACHS. On no O/P treatment. Will continue insulin sliding scale while here. (9) Spastic paralysis: Noted, from prior back injury. (10) Depression with anxiety: Continue sertraline and trazodone (11) DVT prophylaxis: Continue Eliquis as above (12) Discharge planning issues: Once more stable will need PT/OT evals Subjective Patient woken up this morning around 10am generally confused and unable to . Paged by RN to assess. Patient had very dry mouth and hypophonia ?dysarthria. No new extremity weakness. Given recent prior admission to [facility] for similar symptoms ?reduced perfusion with lasix use due to known occluded left ICA. CT head ordered stat and discussed with Dr Pike @ [facility] and recommended making tele- stroke call. Tele-stroke performed in ICU with Dr Vishnu sheffield stroke suspected. After this patient was reassessed after having something to drink and his speech returned to his normal. He confirms this was a similar episode to what happened on his last admission. He denies any chest pain. New left leg pain noted today. Review of Systems Review of Systems: All systems reviewed & are unremarkable except as noted in HPI & below Physical Exam Constitutional: well developed; + not well nourished and no acute distress Eyes: + abnormal visual field confrontation (legally blind in right eye, reduced peripheral visual brumfield in left), + abnormal accommodation (vision blurry at distance and up close) and normal pupil size ENMT: Mouth: + muffled voice and + dry oral mucous membranes Neck: trachea midline Respiratory: Auscultation: + diminished lung sounds; no crackles, no rales, no rhonchi and no wheezes Cardiovascular: Rate/Rhythm: regular rate and + irregularly irregular Heart Sounds: + murmur Extremities: normal capillary refill (2-3 s in toes) and + pedal edema (1+ b/l); no calf tenderness Skin: + erythema (cellulitis with warmth bright red, surrounding left leg wound) and + nail abnormality (all nails on right foot black, no arterial appearing ulcers) No abnormality over 5th left toe where there was concern for osteomyelitis on XR. Neurologic: awake; no focal motor deficits (none new since yesterdays exam) and not confused Speech / Cognition: + abnormal speech (dysphonia, possibly some dysarthria); no expressive aphasia and no receptive aphasia Motor/Sensory: + sensory deficit (b/l lower extremity stocking distribution); no tremor and no pronator drift Psychiatric: A+Ox3, euthymic affect Results & Data Vital Signs (Past 12 Hours) Vital Signs Temp Pulse Resp BP BP Pulse Ox 06/19/19 19:46 36.3 C L 79 24 135/69 96 06/19/19 14:52 36.4 C L 69 18 124/70 95 PG Care Time/CCT Total # of Minutes Spent Total Time Spent with Patient: Total time spent is greater than 50% in coordination of care (as documented) at patient's floor/unit and/or counseling patient: (1) Diabetes mellitus Diabetes mellitus complication status: with skin complications 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
[2019-06-20] MEDS: ACETAMINOPHEN 325 MG TAB PO PRN ×2 (00:15→08:59)
[2019-06-20] MEDS ORDERED: VANCOMYCIN HCL 1,500 MG in SODIUM CHLORIDE 0.9% 500 ML IV SCH (04:00)
[2019-06-20] MEDS: CEFEPIME 2,000 MG in SYRINGE 7.5 ML IV SCH ×2 (04:08→12:27)
--- NOTE | 2019-06-20 06:41 | Billing Data ---
Date of Service June 20, 2019 Coding Level of Care Code 32187 Initial Inpt Care Lvl 3
[2019-06-20 07:22] LABS: Basophils # (auto) 0.02 K/uL (0-0.2); Basophils % (auto) 0.2 %; Eosinophils # (auto) 0.32 K/uL (0-0.5); Eosinophils % (auto) 3.4 %; Hematocrit (blood only) 39.9 % (42-52); Hemoglobin 11.7 g/dL (14.0-18.0); Immature Granulocytes # (auto) 0.01 K/uL (0.00-0.02); Immature Granulocytes % (auto) 0.1 %; Lymphocytes # (auto) 0.82 K/uL (1.2-3.4); Lymphocytes % (auto) 8.6 %; Mean Corpuscular Hemoglobin 25.7 pg (25-34); Mean Corpuscular Hgb Conc 29.3 g/dL (32-36); Mean Corpuscular Volume 87.7 fL (80-100); Mean Platelet Volume 10.3 fL (7.4-10.4); Monocytes # (auto) 0.74 K/uL (0.11-0.59); Monocytes % (auto) 7.8 %; Neutrophils # (auto) 7.57 K/uL (1.4-6.5); Neutrophils % (auto) 79.9 %; Platelet Count 329 K/uL (130-400); RDW Coefficient of Variation 16.8 % (11.5-14.5); RDW Standard Deviation 54.1 fL (36.4-46.3); Red Blood Count 4.55 M/uL (4.7-6.1); White Blood Count 9.48 K/uL (4.8-10.8)
[2019-06-20 08:02] LABS: BUN Creatinine Ratio 23.2 (10-20); C Reactive Protein 5.97 mg/dl (0-0.29); Calcium 8.9 mg/dl (8.5-10.1); Creatinine Clr Calc Pharmacy 69.1 ml/min; Est GFR (Non-African American) 67.3; Magnesium 2.1 mg/dl (1.8-2.4); Potassium 3.8 mmol/L (3.5-5.1)
[2019-06-20] MEDS: POTASSIUM CHLORIDE 20 MEQ TABCR PO SCH (08:47)
[2019-06-20] MEDS: BACLOFEN 10 MG TAB PO SCH ×4 (08:47→20:37)
[2019-06-20] MEDS: MULTIVITAMIN TAB PO SCH (08:47)
[2019-06-20] MEDS: lisinopriL 40 MG TAB PO SCH (08:48)
[2019-06-20] MEDS: INSULIN ASPART 100 UNITS/ML 3 ML PEN SC SCH ×4 (08:49→21:02)
[2019-06-20] MEDS: APIXABAN 5 MG TABLET PO SCH ×2 (08:49→20:38)
[2019-06-20] MEDS ORDERED: METOPROLOL SUCC 50MG EXT REL TAB PO SCH (09:00)
[2019-06-20] MEDS ORDERED: FUROSEMIDE 20 MG in SYRINGE 0 ML IV SCH (09:00)
[2019-06-20] MEDS: ASPIRIN 81 MG ECTAB PO SCH (10:13)
[2019-06-20] MEDS: SERTRALINE HCL 100 MG TABLET PO SCH (12:27)
[2019-06-20] MEDS ORDERED: VANCOMYCIN TROUGH SCH (17:30)
[2019-06-20] MEDS ORDERED: FUROSEMIDE 20 MG in SYRINGE 0 ML IV ONE (18:32)
[2019-06-20] MEDS ORDERED: METFORMIN HCL ER 500 MG TABCR PO ONE (18:46)
--- NOTE | 2019-06-20 19:10 | Hospitalist Progress Note ---
Date of Service June 20, 2019 Assessment & Plan (1) Lower extremity cellulitis: Blood cultures now 48 hours negative. No Hx MRSA. Will switch to ceftriaxone while admitted with plan of switching to keflex as outpatient. Despite PAD pulses palpated in feet b/l, also noted wound care doppler assessment showed pulses - recommend outpatient vascular follow up. CRP in 2 days to assess change of antibiotics. (2) Wound of lower extremity: Left lower extremity partial thickness wound suspected cause of cellulitis above. Appreciate wound care recommendations for dressings. Agree patient would benefit from wound care clinic appointment on discharge. (3) Hypophonia: Resolved. Due to over diuresis while on fluid restriction. Suspect he needs so much lasix at home due to high fluid intake. (4) Acute on chronic diastolic CHF (congestive heart failure): Shortness of breath, acute on chronic diastolic CHF - appears relatively euvolemic at this stage. Will give extra dose of of lasix 20mg IV (total 40mg IV today, less than his usual total 100mg PO) and switch to PO tomorrow. Will place on reduced dose as suspect he drinks a lot of water at home. - At dry weight. Negative 3L since admission which was original goal. No increase in Cr. - Up titrate metoprolol XL to max 400mg, already on max dose ACEi - D/c fluid restriction to monitor how much he drinks when not restricted. (5) Urinary retention: Chronic pedraza catheter use due to neurogenic bladder. No indication for cath-associated UTI. (6) Anemia: Chronic stable. Normocytic. No further inpatient workup planned (7) Peripheral arterial disease: Pulses noted in feet b/l with cap refil 2-3 seconds. Doppler from wound care also positive for pulses. (8) Atrial fibrillation: Chronic. Rate controlled on metoprolol -> increase to 400mg for benefit Anticoagulation with Eliquis (9) Diabetes mellitus: HbA1C 8.1. BSG ACHS. Discharged from [facility] on Lantus 13 units but unclear what happened to this. On 4 units Novolog from current sliding scale. Will d/c carb coverage and start metformin. (10) Spastic paralysis: Noted, from prior back injury. (11) Depression with anxiety: Continue sertraline and trazodone (12) DVT prophylaxis: Continue Eliquis as above (13) Discharge planning issues: PT/OT ordered. Subjective Patient reports leg pain improving. No acute events overnight. No new concerns or questions. Review of Systems Review of Systems: All systems reviewed & are unremarkable except as noted in HPI & below Physical Exam Constitutional: well developed; + not well nourished and no acute distress Eyes: + anicteric sclerae; + abnormal visual field confrontation and normal pupil size ENMT: Mouth: + dry oral mucous membranes (mild, much improved from yesterday) Neck: trachea midline Respiratory: normal respiratory effort; no respiratory distress and does not use accessory muscles Auscultation: + diminished lung sounds (bibasal); no crackles, no rales, no rhonchi and no wheezes Cardiovascular: Rate/Rhythm: regular rate and + irregularly irregular Heart Sounds: + murmur Extremities: normal capillary refill (2-3 s in toes) and + pedal edema (1+ b/l); no calf tenderness Gastrointestinal (Abdomen): Inspection/Auscultation: abdomen normal to inspection and normal bowel sounds Percussion/Palpation: abdomen soft; abdomen nontender, no guarding and abdomen not rigid Skin: + erythema (improving cellulitic changes surrounding left leg wound) and + nail abnormality (all nails on right foot black, no arterial appearing ulcers) Neurologic: awake; not confused Speech / Cognition: + abnormal speech (mild slurring at baseline) Motor/Sensory: + sensory deficit (b/l lower extremity stocking distribution); no tremor and no pronator drift Psychiatric: A+Ox3, euthymic affect Results & Data Vital Signs (Past 12 Hours) Vital Signs Temp Pulse Resp BP Pulse Ox 06/20/19 16:00 36.4 C L 80 20 132/69 93 06/20/19 11:41 36.4 C L 74 18 144/74 H 97 06/20/19 08:06 36.8 C 87 18 158/79 H 93 PG Care Time/CCT Total # of Minutes Spent Total Time Spent with Patient: Total time spent is greater than 50% in coordin ation of care (as documented) at patient's floor/unit and/or counseling patient: (1) Lower extremity cellulitis Laterality: left Qualified Code(s): L03.116 - Cellulitis of left lower limb (2) Anemia Anemia type: unspecified type Qualified Code(s): D64.9 - Anemia, unspecified (3) Atrial fibrillation Atrial fibrillation type: chronic Qualified Code(s): I48.2 - Chronic atrial fibrillation (4) Diabetes mellitus Diabetes mellitus type: type 2 Diabetes mellitus mcfp insulin use: without mcfp use Diabetes mellitus complication status: with skin complications Diabetes mellitus complication detail: with foot ulcer Qualified Code(s): E11.621 - Type 2 diabetes mellitus with foot ulcer; L97.509 - Non- pressure chronic ulcer of other part of unspecified foot with unspecified severity (5) Wound of lower extremity Encounter type: initial encounter Laterality: left Qualified Code(s): S81.802A - Unspecified open wound, left lower leg, initial encounter
[2019-06-20] MEDS: TRAZODONE HCL 50 MG TAB PO SCH (20:37)
[2019-06-20] MEDS: cefTRIAXone SODIUM 2,000 MG in DEXTROSE 5% 50 ML IV SCH (20:37)
[2019-06-20] MEDS: METHENAMINE HIPPURATE 1 GM TAB PO SCH (20:38)
[2019-06-20] MEDS ORDERED: METOPROLOL TARTRATE 1 MG/ML VIAL IV STA (22:23)
--- NOTE | 2019-06-20 22:31 | Communication Note ---
Date of Service: June 20, 2019 Called to bedside at approximately 2200 hrs. Patient crying out for help, experiencing sudden intense mid chest/sternal chest pain which resolved after few minutes. Patient reports he has baseline anxiety which feels similar, but his current event was very sudden and intense. EKG obtained, patient has baseline right bundle branch block however had a change in morphology in leads V3, V4, V5 with a new ST depression appreciated in V3. Patient was given Lopressor 2.5 and Nitropaste. Patient is anticoagulated with apixaban, heparin was deferred for 12 hours. Apixaban held for next dose at 9 AM, heparin to be initiated at 9 AM unless deferred by primary team. Cardiology consult placed. Patient was moved to PCU/telemetry for closer observation.
[2019-06-20] MEDS: NITROGLYCERIN 2% OINTMENT 30GM TUBE EXT SCH (22:32)
[2019-06-21 04:37] LABS: BUN Creatinine Ratio 27.2 (10-20); Blood Urea Nitrogen 24 mg/dl (7-18); Calcium 8.9 mg/dl (8.5-10.1); Carbon Dioxide 34 mmol/L (21-32); Chloride 108 mmol/L (98-107); Creatinine Clr Calc Pharmacy 78.4 ml/min; Est GFR (African American) 98.1; Est GFR (Non-African American) 84.6; Glucose 168 mg/dl (70-99); Potassium 3.7 mmol/L (3.5-5.1); Sodium 146 mmol/L (136-145)
[2019-06-21 04:43] LABS: Troponin I < 0.015 ng/ml (0-0.045)
[2019-06-21] MEDS: NITROGLYCERIN 2% OINTMENT 30GM TUBE EXT SCH ×3 (05:06→17:26)
[2019-06-21] MEDS ORDERED: Heparin IV Low Dose *NO* Bolus IV SCH (09:00)
[2019-06-21] MEDS ORDERED: FUROSEMIDE 40 MG TAB PO SCH (09:00)
[2019-06-21] MEDS ORDERED: HEPARIN SODIUM/DEXTROSE 25,000 UNITS/500 ML BAG IV SCH (09:00)
[2019-06-21] MEDS: INSULIN ASPART 100 UNITS/ML 3 ML PEN SC SCH ×4 (09:03→21:22)
[2019-06-21] MEDS: POTASSIUM CHLORIDE 20 MEQ TABCR PO SCH (09:08)
[2019-06-21] MEDS: MULTIVITAMIN TAB PO SCH (09:09)
[2019-06-21] MEDS: lisinopriL 40 MG TAB PO SCH (09:09)
[2019-06-21] MEDS: ASPIRIN 81 MG ECTAB PO SCH (09:09)
[2019-06-21] MEDS: BACLOFEN 10 MG TAB PO SCH ×4 (09:10→21:22)
[2019-06-21] MEDS: METFORMIN HCL ER 500 MG TABCR PO SCH ×2 (09:42→17:14)
--- NOTE | 2019-06-21 10:07 | Cardiology Consultation ---
Date of Consultation June 21, 2019 Assessment & Plan (1) Chest pain: I cannot evaluate his symptoms of chest pain as he cannot recall them or cannot describe them. It sounds as though he had quite severe chest discomfort lasting for substantial period of time and his cardiac enzymes have been unremarkable and his electrocardiogram does not show any significant abnormalities. I do not think it was cardiac, I would not evaluate it further from that standpoint. (2) Atrial fibrillation: He has permanent atrial fibrillation and his heart rate is reasonably well controlled. He should remain on anticoagulation. (3) Anticoagulant long-term use: He is on Eliquis as an outpatient, his dose is 5 mg twice a day which is correct. I would continue it here. (4) CHF (congestive heart failure): He has had a lot of difficulty with congestive heart failure which I suspect is noncompliance, at the moment following diuresis this admission he seems to be doing better in that regard. (5) Artificial cardiac pacemaker: He has a pacemaker in place, that has been working well and I did not evaluated here. History of Present Illness Reason for Consultation: Chest pain Attending Physician: Tre Phipps MD History of Present Illness This is a 74-year-old gentleman who has a history of peripheral vascular disease, diabetes, and wheelchair dependent spastic paralysis and permanent atrial fibrillation. He was having rapid heart rates as well as pauses of up to 6.7 seconds on telemetry therefore a single-chamber pacemaker was implanted on August 29, 2018. He did require lead repositioning on August 30, 2018 which was accomplished without difficulty. Since pacemaker implantation he has felt well with regard to his rhythm. He has had a number of admissions following pacemaker implantation. He was hospitalized October 26, 2018 through October 29, 2018 with atrial fibrillation with a rapid heart rate but he also had a urinary tract infection and probably urosepsis. He was then hospitalized from November 12, 2018 through November 17, 2018 with feelings of weakness and tiredness and was noted to have an exacerbation of heart failure from which he was diuresed. An echocardiogram done on November 13, 2018 shows mild concentric left ventricular hypertrophy with normal left ventricular systolic function and a severely dilated left atrium. He was then hospitalized from January 20, 2019 through January 22, 2019 again with exacerbation of heart failure, as well as May 04, 2019 through May 08, 2019, again with congestive heart failure. He was seen in our office on June 03, 2019 and seemed to be doing reasonably well, however he now presents with recurrent shortness of breath and congestive heart failure. He presents now with recurrent shortness of breath and fluid overload and has been diuresed. He also has chest discomfort. The chart describes this as a severe chest pain during the night, this morning he seems to have very little recollection of it. On my discussion with him today I cannot tell whether he was actually continued to have chest pain or not and I cannot evaluate the character of it during the night. Of note his cardiac enzymes were negative. Allergies Allergy/AdvReac Type Severity Reaction Status Date / Time zolpidem [From Ambien] AdvReac hallucinati Verified 06/17/19 21:54 ons Home Medications Home Medications Medication Instructions Recorded Confirmed Type apixaban 5 mg tablet 5 mg PO BID 02/18/18 06/17/19 History lisinopril 40 mg tablet 40 mg PO QAM 02/18/18 06/17/19 History methenamine hippurate 1 gram tablet 1 gm PO QPM tab 02/18/18 06/17/19 History baclofen 10 mg tablet 10 mg PO QID tab 11/28/18 06/17/19 History metoprolol tartrate [Lopressor] 75 mg PO BID 01/20/19 06/17/19 History multivitamin 1 tab PO QAM 01/20/19 06/17/19 History potassium chloride [Klor-Con M20] 40 meq PO QAM 01/20/19 06/17/19 History sertraline [Zoloft] 100 mg PO DAILY@1300 01/20/19 06/17/19 History furosemide 20 mg tablet 20 mg PO PM tab 01/23/19 06/17/19 History aspirin 81 mg PO QAM 05/04/19 06/17/19 History ondansetron 4 mg PO DAILY PRN 05/04/19 06/17/19 History trazodone 50 mg tablet 50 mg PO DAILY #30 tab 06/13/19 06/17/19 Rx furosemide 20 mg tablet 40 mg PO BID tab 06/16/19 06/17/19 History Patient History Medical History A-fib (Acute) Acute diastolic heart failure Cellulitis (Chronic) Diabetes 1.5, managed as type 2 (Chronic) Glaucoma (Chronic) Hospital acquired PNA (Inactive) HTN (hypertension) (Chronic) Hydrocele (Chronic) Leg ulcer (Acute) Scrotal mass (Chronic) Sepsis (Chronic) Small intestine obstruction (Chronic) Spastic paralysis (Chronic) Urinary retention (Chronic) UTI (urinary tract infection) (Chronic) Surgical History History of toe surgery (Chronic) S/P TURP (Chronic) Family History Other No significant family history Social History Preferred Language: Armenian Communication Ability: Effective Payroll Benefits Administrator Required: No Beliefs That Will Affect Care: None Current Living Situation: Alone Current Living Situation Comment: 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 He is in bed. He seems to be a bit confused HEENT: Unremarkable Neck: No jugular venous distention, carotid pulses are irregular but otherwise normal and equal bilaterally without bruits. Pulmonary: Clear to auscultation bilaterally. Cardiac: Irregular rhythm with no murmur, gallop or rub. Abdomen: Soft, nontender with normal bowel sounds. Extremities: +1 bilateral pretibial edema. Distal pulses intact. He has a number of lesions on his legs. Neurologic: He cannot move his lower extremities well, he does not have difficulty moving his arms. Skin: No rash, ecchymoses or petechiae. His pacer site is well-healed without erythema, swelling or tenderness Results & Data Vital Signs (Past 12 Hours) Vital Signs Temp Pulse Pulse Resp BP Pulse Ox 06/21/19 08:02 36.4 C L 84 18 149/76 H 94 06/21/19 03:28 36.2 C L 79 23 154/84 H 94 06/20/19 23:08 36.7 C 80 20 154/74 H 99 06/20/19 23:00 78 Laboratory Results Cardiac Enzymes 06/20/19 06/21/19 06/21/19 Range/Units 22:21 04:01 10:09 Troponin I < 0.015 < 0.015 < 0.015 (0-0.045) ng/ml Comprehensive Metabolic Panel 06/21/19 Range/Units 04:01 Sodium 146 H (136-145) mmol/L Potassium 3.7 (3.5-5.1) mmol/L Chloride 108 H (98-107) mmol/L Carbon Dioxide 34 H (21-32) mmol/L BUN 24 H (7-18) mg/dl Creatinine 0.88 (0.6-1.4) mg/dl Glucose 168 H (70-99) mg/dl Calcium 8.9 (8.5-10.1) mg/dl Intake and Output 06/20/19 06/21/19 06/21/19 22:59 06:59 14:59 Intake Total 550 / 1280 Output Total / 1949 500 / 1950 Balance -350 / -670 -500 / -670 Intake: IV 70 / 600 Rocephin 2,000 mg In D5w 50 ml 70 / 70 @ 140 mls/hr IV Q24H [facility] Rx#: [id number] Oral 480 / 680 Output: Urine Amount (Catheter) 1949 500 / 1950 Coon/Indwelling / 1949 500 / 1950 Other: Weight 87.6 kg Diagnostic Findings Electrocardiogram: His electrocardiogram yesterday shows atrial fibrillation with some inferior T wave abnormalities, very similar to prior electrocardiograms. Telemetry: Atrial fibrillation with a heart rate that is slightly rapid (80-90) but no significant tachycardia or bradycardia. PG Care Time/CCT Total # of Minutes Spent Total Time Spent with Patient: Total time spent is greater than 50% in coordination of care (as documented) at patient's floor/unit and/or counseling patient:
[2019-06-21] MEDS: METOPROLOL SUCC 50MG EXT REL TAB PO SCH (11:26)
[2019-06-21] MEDS: SERTRALINE HCL 100 MG TABLET PO SCH (12:03)
[2019-06-21] MEDS: APIXABAN 5 MG TABLET PO SCH ×2 (13:22→22:55)
[2019-06-21] MEDS: cefTRIAXone SODIUM 2,000 MG in DEXTROSE 5% 50 ML IV SCH (20:58)
[2019-06-21] MEDS: TRAZODONE HCL 50 MG TAB PO SCH (21:22)
[2019-06-21] MEDS: METHENAMINE HIPPURATE 1 GM TAB PO SCH (21:23)
--- NOTE | 2019-06-21 21:55 | Hospitalist Progress Note ---
Date of Service June 21, 2019 Assessment & Plan (1) Chest pain: Unclear exact etiology as patient unable to provide much of a history as very dry on exam and unable to talk much as kept NPO due to chest pain overnight. No change in EKG. Serial troponins negative. Discontinued heparin dri p and placed back on his usual anticoagulation. Discontinued nitro paste. (2) Lower extremity cellulitis: Improving clinically. Blood cultures now 48 hours negative. No Hx MRSA. Will switch to ceftriaxone while admitted with plan of switching to keflex as outpatient. Despite PAD; pulses palpated in feet b/l, also noted wound care doppler assessment showed pulses - recommend outpatient vascular follow up. CRP in 2 days to assess change of antibiotics. (3) Wound of lower extremity: Left lower extremity partial thickness wound suspected cause of cellulitis above. Appreciate wound care recommendations for dressings. Follow up wound care clinic on discharge. (4) Hypophonia: Appears to be worse again today after being kept NPO after midnight due to chest pain. Likely due to over diuresis as previously resolved with oral hygeine. Unclear if he takes any lasix at home as suspected to be non-compliant as per cardiology. (5) Acute on chronic diastolic CHF (congestive heart failure): Shortness of breath, acute on chronic diastolic CHF - appears dry on exam after restarting usual lasix dosing. Will discontinue further lasix and dose on as needed basis - At dry weight. Cr stable. - Up titrated metoprolol XL to max 400mg, already on max dose ACEi - D/c fluid restriction to monitor how much he drinks when not restricted. (6) Urinary retention: Chronic pedraza catheter use due to neurogenic bladder. No indication for cath-associated UTI. (7) Anemia: Chronic stable. Normocytic. No further inpatient workup planned (8) Peripheral arterial disease: Pulses noted in feet b/l with cap refil 2-3 seconds. Doppler from wound care also positive for pulses. (9) Atrial fibrillation: Chronic. Rate controlled on metoprolol -> increase to 400mg for benefit Anticoagulation with Eliquis (10) Diabetes mellitus: HbA1C 8.1. BSG ACHS. Discharged from [place] on Lantus 13 units but unclear what happened to this. On 4 units Novolog from current sliding scale. Will d/c carb coverage and start metformin. 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 (12) Depression with anxiety: Continue sertraline and trazodone (13) DVT prophylaxis: Continue Eliquis as above (14) Discharge planning issues: PT/OT - unable to complete today as chest pain workup pending Subjective Patient alert. No longer having chest pain. Very dry mouth and having trouble continuing to speak making history. Hypophonia similar to previous day making much of a history difficult to obtain. No altered mental state and able to make out a normal sentence but very quiet. Review of Systems Review of Systems: All systems reviewed & are unremarkable except as noted in HPI & below (limited due to hypophonia) Physical Exam Constitutional: + not well nourished and no acute distress Eyes: + anicteric sclerae; normal pupil size ENMT: Mouth: + dry oral mucous membranes (worse than prior day) Neck: trachea midline Respiratory: normal respiratory effort; no respiratory distress and does not use accessory muscles Auscultation: + diminished lung sounds (bibasal); no crackles, no rales, no rhonchi and no wheezes Cardiovascular: Rate/Rhythm: regular rate and + irregularly irregular Heart Sounds: + murmur Extremities: normal capillary refill (2-3 s in toes) and + pedal edema (1+ b/l); no calf tenderness Gastrointestinal (Abdomen): Inspection/Auscultation: abdomen normal to inspection and normal bowel sounds Percussion/Palpation: abdomen soft; abdomen nontender, no guarding and abdomen not rigid Skin: + erythema (mostly resolved cellulitic changes surrounding left leg wound) and + nail abnormality (all nails on right foot black, no arterial appearing ulcers) Neurologic: awake; not confused Speech / Cognition: + abnormal speech (mild slurring at baseline) Motor/Sensory: + sensory deficit (b/l lower extremity stocking distribution); no tremor and no pronator drift Psychiatric: A+Ox3, euthymic affect Results & Data Vital Signs (Past 12 Hours) Vital Signs Temp Pulse Resp BP BP Pulse Ox 06/21/19 21:46 36.6 C 62 18 163/89 H 95 06/21/19 18:59 36.8 C 76 19 174/87 H 99 06/21/19 15:14 36.7 C 78 23 163/88 H 97 06/21/19 11:39 36.6 C 92 H 20 151/78 H 92 PG Care Time/CCT Total # of Minutes Spent Total Time Spent with Patient: Total time spent is greater than 50% in coordination of care (as documented) at patient's floor/unit and/or counseling patient: (1) Diabetes mellitus Diabetes mellitus complication detail: with foot ulcer Diabetes mellitus complication status: with skin complications 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: without intermodal owner operator truck driver use Diabetes mellitus type: type 2 Qualified Code(s): E11.621 - Type 2 diabetes mellitus with foot ulcer; L97.509 - Non- pressure chronic ulcer of other part of unspecified foot with unspecified severity (2) Wound of lower extremity Encounter type: initial encounter Laterality: left Qualified Code(s): S81.802A - Unspecified open wound, left lower leg, initial encounter (3) Anemia Anemia type: unspecified type Qualified Code(s): D64.9 - Anemia, unspecified (4) Atrial fibrillation Atrial fibrillation type: chronic Qualified Code(s): I48.2 - Chronic atrial fibrillation (5) Lower extremity cellulitis Laterality: left Qualified Code(s): L03.116 - Cellulitis of left lower limb (6) Chest pain Chest pain type: unspecified Qualified Code(s): R07.9 - Chest pain, unspecified
[2019-06-21] MEDS ORDERED: SODIUM CHLORIDE 0.45 % 1,000 ML IV SCH (23:15)
--- NOTE | 2019-06-21 23:17 | Communication Note ---
Date of Service: June 21, 2019 S: I was called to patient's bedside due to abrupt change in status--nursing noted decreased ability to speak and some lethargy. No significant change in vital signs, no fever. Brief review of his records show recent history of intermittent hypophonia that prompted transfer to [facility] in April and was also noted on June 19, that was noted to have resolved as of this morning. The thinking being that it happens when he gets a little bit dry. CTA of the head and neck does show chronic narrowing of the majority of the left internal carotid artery. Head CT on 06/19 showed no acute intracranial finding. O: Vitals noted BP 163/89, pulse 62, respirations 18, O2 saturation 95% and stable, remains on 2 L nasal cannula. Afebrile. General: Lying in bed, gazing at the ceiling, sometimes making eye contact with me. Occasionally raises his right arm and points to the nurse. Is able to follow basic commands upon my examination. HEENT: Mucous membranes appear dry. Normocephalic atraumatic, nasal cannula in place. CV: Regular rate and rhythm Respiratory: Slightly diminished at the bases but no crackles or rhonchi auscul tated. Lower extremities: Appear erythematous and edematous. Multiple ulcers. A/P: Change in mental status vs. recurrent hypophonia/dysphonia. Patient's mentation seems to be improved upon my examination and nursing concurs. He is able to follow basic commands but I do agree that he is not verbalizing voluntarily. He is able to move his upper extremities and follow basic commands. There are no adventitious lung sounds, his vitals are stable and he remains afebrile. He is currently on antibiotics. According to previous progress notes his dysphonia seems to come on with hypovolemia. He is here for diuresis and has lost 10 kg since admission. Net -4 L. Appears dry, now with hypophonia. Plan: Will order 500 mL's of half-normal saline bolus. Continue to monitor. Deanna Lamas MD PGY3
[2019-06-22 07:08] LABS: BUN Creatinine Ratio 26.6 (10-20); C Reactive Protein 3.13 mg/dl (0-0.29); Creatinine Clr Calc Pharmacy 77.6 ml/min; Est GFR (African American) 97.6; Est GFR (Non-African American) 84.2; Potassium 4.1 mmol/L (3.5-5.1)
[2019-06-22] MEDS ORDERED: SODIUM CHLORIDE 0.45 % 1,000 ML IV SCH (07:15)
[2019-06-22] MEDS: APIXABAN 5 MG TABLET PO SCH ×2 (08:15→20:30)
[2019-06-22] MEDS: METOPROLOL SUCC 50MG EXT REL TAB PO SCH (08:16)
[2019-06-22] MEDS: BACLOFEN 10 MG TAB PO SCH ×4 (08:16→20:30)
[2019-06-22] MEDS: METFORMIN HCL ER 500 MG TABCR PO SCH ×2 (08:16→17:27)
[2019-06-22] MEDS: MULTIVITAMIN TAB PO SCH (08:16)
[2019-06-22] MEDS: POTASSIUM CHLORIDE 20 MEQ TABCR PO SCH (08:16)
[2019-06-22] MEDS: lisinopriL 40 MG TAB PO SCH (08:17)
[2019-06-22] MEDS: ASPIRIN 81 MG ECTAB PO SCH (08:17)
[2019-06-22] MEDS: INSULIN ASPART 100 UNITS/ML 3 ML PEN SC SCH ×4 (08:19→20:31)
[2019-06-22] MEDS: FLUCONAZOLE 200 MG/100 ML BAG IV SCH ×2 (11:52→12:52)
[2019-06-22] MEDS ORDERED: ALUMINUM/MAGNESIUM SUSP 18 ML, LIDOCAINE HCL VISCOUS 2% 6 ML, BARCODE IDENTIFIER 1 EA PO ONE (12:00)
[2019-06-22] MEDS ORDERED: MICONAZOLE NITRATE POWDER 43 GM EXT PRN (12:12)
[2019-06-22] MEDS: NYSTATIN SUSP 500,000 U/5 ML UDC PO SCH ×3 (12:36→20:30)
[2019-06-22] MEDS: SERTRALINE HCL 100 MG TABLET PO SCH (12:38)
--- NOTE | 2019-06-22 17:06 | Hospitalist Progress Note ---
Date of Service June 22, 2019 Assessment & Plan (1) Esophageal candidiasis: Start fluconazole IV 400mg now, then 200mg PO daily for 14 days. Nystatin to treat oropharyngeal. GI cocktail now to help with pain. (2) Chest pain: With hindsight suspect this was esophageal candidiasis as above. Cardiac enzymes unremarkable. (3) Lower extremity cellulitis: Left lower extremity cellulitis mostly resolved at this stage. Blood cultures negative. No history of MRSA. CRP downtrending. Will switch to Keflex. Despite known PAD pulses palpated in feet b/l, also noted wound care doppler assessment showed pulses - recommend outpatient vascular follow up. (4) Wound of lower extremity: Left lower extremity partial thickness wound suspected cause of cellulitis above. Appreciate wound care recommendations for dressings. Needs wound care clinic on discharge. (5) Hypophonia: Secondary to dehydration and esophageal candidiasis. Stroke call on 06/20 after discussing with Rosemary but this was assessed and ruled out. Consult neuro as he had planned for a neuromuscular workup as outpatient and given above etiologies this is difficult to assess whether his current hypophonia is neuromuscular. (6) Acute on chronic diastolic CHF (congestive heart failure): Shortness of breath, acute on chronic diastolic CHF on admission. - diuresed easily with IV lasix and on trying to restart his home dose lasix he has become excessively dry. Raises concern for non-compliance vs. excessive fluid intake at home. Likely dose of lasix needs to be decreased from home med listed when discharged. - IV fluids given overnight and appears slightly more hypervolemic today on exam although weight continues to decrease and excessive dry mouth for last 2 days (suspect some of this was undiagnosed oral/esophageal thrush) - Lower than dry weight. Cr stable/improved with diuresis. - Switch Metoprolol XL to carvedilol due to hypertension - No fluid restriction as was getting very dry on exam - repeat CXR due to slightly worse shortness of breath today and increased O2 requirements although this improved throughout the day. (7) Urinary retention: Chronic perdaza catheter use due to neurogenic bladder. No indication for cath-associated UTI. (8) Anemia: Chronic stable. Normocytic. No further inpatient workup planned (9) Peripheral arterial disease: Pulses noted in feet b/l with cap refil 2-3 seconds. Doppler from wound care also positive for pulses. (10) Atrial fibrillation: Chronic. Rate controlled on metoprolol -> switch to carvedilol to help with BP management Anticoagulation with Eliquis (11) Diabetes mellitus: HbA1C 8.1. BSG ACHS. Restarted on metformin in anticipation of discharge and appears to have glucose levels well controlled on this. (12) Spastic paralysis: Noted, from prior back injury. Planning on following up with [place] [facility] on discharge - unclear what diagnosis they were entertaining at present. (13) Depression with anxiety: Continue sertraline and trazodone (14) DVT prophylaxis: Continue Eliquis as above (15) Discharge planning issues: Continue PT/OT Subjective Worsening hypophonia today. Able to make out normal words and short sentences but with increased effort. Altered mental state overnight but appeared to resolve once resident saw patient. Appears to be back to his baseline mental state today although just having difficulty communicating with hypophonia. Appears to also be struggling with bilateral Given IV fluids overnight and feels a bit more short of breath today. No cough, fever or chills. Review of Systems Review of Systems: All systems reviewed & are unremarkable except as noted in HPI & below (limited due to hypophonia) Physical Exam Constitutional: + not well nourished and no acute distress Eyes: + anicteric sclerae; normal pupil size ENMT: Mouth: + oral mucosal abnormality (esophageal candidiasis on exam) and + dry oral mucous membranes (worse than prior day) Neck: trachea midline Respiratory: normal respiratory effort and + uses accessory muscles; no labored breathing (although increased effort to make sounds) Auscultation: + diminished lung sounds (bibasal); no crackles, no rales, no rhonchi and no wheezes Cardiovascular: Rate/Rhythm: regular rate and + irregularly irregular Heart Sounds: + murmur Extremities: normal capillary refill (2-3 s in toes) and + pedal edema (1+ b/l); no calf tenderness Gastrointestinal (Abdomen): Inspection/Auscultation: abdomen normal to inspection and normal bowel sounds Percussion/Palpation: abdomen soft; abdomen nontender, no guarding and abdomen not rigid Skin: + erythema (mostly resolved cellulitic changes surrounding left leg wound) and + nail abnormality (all nails on right foot black, no arterial appearing ulcers) Neurologic: + focal motor deficit (new bilateral upper extremity generalized weakness) and awake; not confused Speech / Cognition: + abnormal speech (significant hypophonia) Motor/Sensory: + pronator drift (b/l UE) and + sensory deficit (b/l lower extremity stocking distribution); no tremor Psychiatric: A+Ox3, euthymic affect Results & Data Vital Signs (Past 12 Hours) Vital Signs Temp Pulse Pulse Resp BP Pulse Ox 06/22/19 15:12 78 06/22/19 15:00 36.6 C 79 18 175/96 H 93 06/22/19 10:56 36.5 C 72 18 175/84 H 96 06/22/19 08:02 84 06/22/19 07:00 36.7 C 79 18 159/94 H 95 PG Care Time/CCT Total # of Minutes Spent Total Time Spent with Patient: Total time spent is greater than 50% in coordination of care (as documented) at patient's floor/unit and/or counseling patient: (1) Diabetes mellitus Diabetes mellitus complication detail: with foot ulcer Diabetes mellitus complication status: with skin complications Diabetes mellitus fpc insulin use: without terminal carman use Diabetes mellitus type: type 2 Qualified Code(s): E11.621 - Type 2 diabetes mellitus with foot ulcer; L97.509 - Non-pr essure chronic ulcer of other part of unspecified foot with unspecified severity (2) Wound of lower extremity Encounter type: initial encounter Laterality: left Qualified Code(s): S81.802A - Unspecified open wound, left lower leg, initial encounter (3) Anemia Anemia type: unspecified type Qualified Code(s): D64.9 - Anemia, unspecified (4) Atrial fibrillation Atrial fibrillation type: chronic Qualified Code(s): I48.2 - Chronic atrial fibrillation (5) Lower extremity cellulitis Laterality: left Qualified Code(s): L03.116 - Cellulitis of left lower limb (6) Chest pain Chest pain type: unspecified Qualified Code(s): R07.9 - Chest pain, unspecified
--- NOTE | 2019-06-22 19:42 | XRay Report ---
XR chest 1V portable HISTORY: 74 years-old Male shortness of breath acute shortness of breath COMPARISON: Chest radiograph 06/17/2019 TECHNIQUE: Portable AP view of the chest FINDINGS: Cardiac silhouette is enlarged, unchanged. Calcified plaque of the thoracic aortic arch. Stable posit ioning of the left subclavian pacer. No pneumothorax. Layering bilateral pleural effusions are redemo nstrated. Interstitial pulmonary edema with graded bibasilar opacities. There is decreased aeration o f the right lung from comparison. Degenerative changes of the shoulders and spine. IMPRESSION: 1. Cardiomegaly with pulmonary edema. 2. Layering pleural effusions with progressive bibasilar and right midlung consolidation. ACT 112: Negative or not required by law. The above report was generated using voice recognition software. It may contain grammatical, syntax o r spelling errors. Electronically signed by: Michel Basurto M.D. 06/22/2019 7:41 PM
[2019-06-22] MEDS: cephALEXin 500 MG CAP PO SCH (20:30)
[2019-06-22] MEDS: TRAZODONE HCL 50 MG TAB PO SCH (20:30)
[2019-06-22] MEDS: METHENAMINE HIPPURATE 1 GM TAB PO SCH (20:30)
[2019-06-22] MEDS ORDERED: carvediloL 12.5 MG TAB PO SCH (21:00)
[2019-06-23 06:27] LABS: BUN Creatinine Ratio 27.3 (10-20); Calcium 9.1 mg/dl (8.5-10.1); Creatinine Clr Calc Pharmacy 82.2 ml/min; Est GFR (Non-African American) 86.3; Potassium 4.2 mmol/L (3.5-5.1)
[2019-06-23 06:43] LABS: Hematocrit (blood only) 40.3 % (42-52); Hemoglobin 11.5 g/dL (14.0-18.0); Mean Corpuscular Hemoglobin 25.6 pg (25-34); Mean Corpuscular Hgb Conc 28.5 g/dL (32-36); Mean Corpuscular Volume 89.8 fL (80-100); Mean Platelet Volume 10.9 fL (7.4-10.4); Platelet Count 340 K/uL (130-400); RDW Coefficient of Variation 16.7 % (11.5-14.5); RDW Standard Deviation 54.8 fL (36.4-46.3); Red Blood Count 4.49 M/uL (4.7-6.1); White Blood Count 8.54 K/uL (4.8-10.8)
[2019-06-23 07:11] LABS: Basophils # (auto) 0.02 K/uL (0-0.2); Basophils % (auto) 0.2 %; Eosinophils # (auto) 0.15 K/uL (0-0.5); Eosinophils % (auto) 1.8 %; Hypochromasia Present; Immature Granulocytes # (auto) 0.02 K/uL (0.00-0.02); Immature Granulocytes % (auto) 0.2 %; Lymphocytes # (auto) 1.05 K/uL (1.2-3.4); Lymphocytes % (auto) 12.3 %; Monocytes % (auto) 9.4 %; Neutrophils % (auto) 76.1 %
[2019-06-23] MEDS: NYSTATIN SUSP 500,000 U/5 ML UDC PO SCH ×4 (07:33→19:38)
[2019-06-23] MEDS: POTASSIUM CHLORIDE 20 MEQ TABCR PO SCH (07:34)
[2019-06-23] MEDS: carvediloL 25 MG TAB PO SCH ×2 (07:34→19:37)
[2019-06-23] MEDS: FLUCONAZOLE 200 MG/5 ML UDP PO SCH (07:34)
[2019-06-23] MEDS: APIXABAN 5 MG TABLET PO SCH (07:34)
[2019-06-23] MEDS: MULTIVITAMIN TAB PO SCH (07:34)
[2019-06-23] MEDS: lisinopriL 40 MG TAB PO SCH (07:34)
[2019-06-23] MEDS: INSULIN ASPART 100 UNITS/ML 3 ML PEN SC SCH ×4 (07:35→21:23)
[2019-06-23] MEDS: cephALEXin 500 MG CAP PO SCH ×4 (07:35→19:38)
[2019-06-23] MEDS: METFORMIN HCL ER 500 MG TABCR PO SCH ×2 (07:35→17:31)
[2019-06-23] MEDS: ASPIRIN 81 MG ECTAB PO SCH (07:35)
[2019-06-23] MEDS: BACLOFEN 10 MG TAB PO SCH ×4 (07:39→21:22)
--- NOTE | 2019-06-23 10:31 | Neurology Consultation ---
Date of Consultation June 23, 2019 Assessment & Plan (1) Hypophonia: (2) Spastic paralysis: (3) Carotid occlusion, left: (4) Weakness: (5) Demyelinating lesion: (6) Diabetes mellitus: (7) Atrial fibrillation with RVR: This is a complicated patient, with significant neurologic deficits and progression of symptoms over the last 4-6 weeks. Currently on examination the patient cannot speak words or makes sounds but seems able to understand me and follow commands. In addition he has a left facial weakness, inability to move his eyes to the right or see to the right, palate weakness, and right upper extremity weakness compared to the left. He has an upgoing toe on the left. Patient also has a history of chronic low back injury with bilateral lower extremity weakness resulting in a paralysis of the legs and be wheelchair bound for at least a decade. Certainly, a brainstem lesion could explain his current symptoms. Also of note is the fact that he had an MRI of the cervical spine back in April at [facility] which showed a C2 intramedullary lesion. Nothing further was done about this lesion as far as I can tell. MRI of the brain has extensive chronic white matter lesions. Although we assume these are ischemic in nature, I cannot exclude demyelinating disease. The patient has considerable cerebral vascular disease with multifocal areas of moderate to severe vessel stenosis and a complete left internal carotid artery occlusion distally. He has other stroke risk factors including diabetes and hypertension. He has been on 81 milligram aspirin. He has nothing to suggest a neuromuscular junction disease on examination and antibody titers were appropriately ordered and were unremarkable at [facility] back in April. Recommendations: 1. Repeat MRI of the brain and cervical spine with without contrast each. 2. Consider LP looking for central nervous system inflammatory disease. 3. Physical, occupational, and speech therapy consults. Overall, I spent a total of 100 minutes with this case including review of records, review of MRI films, direct evaluation the patient at bedside, discussing the case with Dr. Lao including differential diagnosis and treatment options. History of Present Illness Reason for Consultation: 74-year-old, who I was asked to see at the request of Dr. Phipps, for neurologic consultation regarding decrease ability to speak and weakness. Requesting Physician: Dr. Phipps Attending Physician: Brenda Lao MD History of Present Illness This patient has a history of congestive heart failure, hypertension, and type 2 diabetes with peripheral vascular disease and chronic atrial fibrillation. He also has glaucoma and some depression and anxiety. He was already on 81 milligram aspirin tablet daily. 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 He has chronic neurogenic bladder and indwelling Coon catheter. His history is somewhat complicated but recently he came to the hospital on May 04 with a right great toe injury. He also had an exacerbation of congestive heart failure. He was noted on May 06 to have word-finding difficulty that was getting worse. MRI of the brain showed extensive old small vessel ischemic disease and mild generalized atrophy as well as slow flow versus occlusion of the left internal carotid artery. CT angiography of the head and neck showed extensive plaque within the intracranial vessels is of moderate to severe multifocal stenoses as well as an occluded distal left ICA. Because of his worsening/new neurologic condition he was transferred to [facility] on May 08 where he stayed through May 20. At [facility] he was noted to have hypophonia and aspiration with swallowing. This swallowing was improved by the time of discharge. However, MRI of the cervical spine showed small cord volume as well as a C2 lesion intramedullary. MRI of the lumbar spine so degenerative changes diffusely. LEMS, MUSK, and acetylcholine receptor antibodies were all unremarkable. B12 was normal at 626 as well. Patient was readmitted to our hospital on June 17 for acute exacerbation of congestive heart failure. Neurologically he has been worse since admission. Nursing reports that he can swallow pills and some liquid but does not speak and seems weaker than usual. Patient of self denies any pain or headache. He denies vision problems. Recent CBC shows mild anemia and Chem profile shows a mildly increased BUN and increased glucose in the 140s to 170s range. Blood pressure is currently 160/90. Allergies Allergy/AdvReac Type Severity Reaction Status Date / Time zolpidem [From Ambien] AdvReac hallucinati Verified 06/17/19 21:54 ons Home Medications Home Medications Medication Instructions Recorded Confirmed Type apixaban 5 mg tablet 5 mg PO BID 02/18/18 06/17/19 History lisinopril 40 mg tablet 40 mg PO QAM 02/18/18 06/17/19 History methenamine hippurate 1 gram tablet 1 gm PO QPM tab 02/18/18 06/17/19 History baclofen 10 mg tablet 10 mg PO QID tab 11/28/18 06/17/19 History metoprolol tartrate [Lopressor] 75 mg PO BID 01/20/19 06/17/19 History multivitamin 1 tab PO QAM 01/20/19 06/17/19 History potassium chloride [Klor-Con M20] 40 meq PO QAM 01/20/19 06/17/19 History sertraline [Zoloft] 100 mg PO DAILY@1300 01/20/19 06/17/19 History furosemide 20 mg tablet 20 mg PO PM tab 01/23/19 06/17/19 History aspirin 81 mg PO QAM 05/04/19 06/17/19 History ondansetron 4 mg PO DAILY PRN 05/04/19 06/17/19 History trazodone 50 mg tablet 50 mg PO DAILY #30 tab 06/13/19 06/17/19 Rx furosemide 20 mg tablet 40 mg PO BID tab 06/16/19 06/17/19 History Patient History Medical History A-fib (Acute) Acute diastolic heart failure Cellulitis (Chronic) Diabetes 1.5, managed as type 2 (Chronic) Glaucoma (Chronic) Hospital acquired PNA (Inactive) HTN (hypertension) (Chronic) Hydrocele (Chronic) Leg ulcer (Acute) Scrotal mass (Chronic) Sepsis (Chronic) Small intestine obstruction (Chronic) Spastic paralysis (Chronic) Urinary retention (Chronic) UTI (urinary tract infection) (Chronic) Surgical History History of toe surgery (Chronic) S/P TURP (Chronic) Family History Other No significant family history Social History Preferred Language: [place] Communication Ability: Effective Lawyer Real Estate Required: No Beliefs That Will Affect Care: None Current Living Situation: Alone Current Living Situation Comment: 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 He can shake or not his head and does not seem to have pain or headaches, vision problems or double vision, swallowing problems, or dizziness. Physical Exam Physical Exam: The patient is right-handed. The patient is awake and fairly alert. He can follow 1 step commands fairly well. When unattended he tends to fall asleep. Patient has no speech/focalization. He tries to formal worse with this mouth but no sound comes out. Mental status cannot be assessed further because of the inability to speak. His mood seems reasonable and his affect seems appropriate. He tries to be cooperative and is calm. The discs are sharp with positive venous pulsations bilaterally. There are no exudates, hemorrhages, or blood vessel changes seen. Pupils are 3 mm bilaterally and reactive to light. Patient moved his eyes easily and quickly to the left. He cannot move his eyes fully to the right bilaterally but he does get past midline. He does not seem to see off to the right either. There are no deficits to sensation in the face in all 3 distributions of the fifth cranial nerve bilaterally. Corneal reflexes are positive bilaterally. He does not move the left corner of his mouth voluntarily but he can move the right. Hearing seems normal to whisper and finger rub bilaterally. Palate does not move well bilaterally. He cannot protrude his tongue out either. Sternocleidomastoid and trapezius strength seems normal symmetrical bilaterally. Neck has a full range of motion without discomfort. There are no cervical bruits bilaterally. There are no cranial or ocular bruits. Heart is without murmur. Cervical spine is nontender to palpation Heat and stance cannot be tested because he is chronically plegic in his legs and cannot sit up or stand. With outstretched arms there is some drift on the right. There are no resting, postural, or action tremors. There is no ataxia with finger to nose testing but this is very difficult to on the right. There is decreased facility in the right hand compared to the left.. No other abnormal involuntary movements are noted. Motor strength is 5/5 diffusely in the left upper extremity including deltoids, biceps, triceps, brachioradialis, wrist flexors and extensors, bottle dealer, and intrinsic hand muscles. Motor strength in the right upper extremity is 4/5 diffusely. Patient does have some proximal left lower extremity strength but distally he is plegic. The right lower extremity is completely plegic. There is decreased tone in both legs. Sensory examination see intact to touch and pin throughout all 4 limbs diffusely. Reflexes are 2/4 in the biceps, triceps, and brachioradialis tendon reflexes in left upper extremity. Quadriceps and Achilles tendon reflexes are absent bilaterally. The right upper extremity reflexes are absent as well. Toes are downgoing with plantar stimulation on the left but upgoing with plantar stimulation on the right Peripheral pulses are present and of normal quality distally in all 4 limbs. There is mild peripheral edema noted in the legs. Results & Data Vital Signs (Past 12 Hours) Vital Signs Temp Pulse Pulse Resp BP Pulse Ox 06/23/19 07:00 36.6 C 81 18 160/90 H 96 06/23/19 04:15 36.5 C 79 18 143/80 H 94 06/22/19 23:26 89 06/22/19 23:01 36.5 C 70 16 117/69 95 PG Care Time/CCT Total # of Minutes Spent Total Time Spent with Patient: Total time spent is greater than 50% in coordination of care (as documented) at patient's floor/unit and/or counseling patient: (1) Diabetes mellitus Diabetes mellitus type: type 2 Diabetes mellitus care home insulin use: without manager terminal use Diabetes mellitus complication status: with skin complications Diabetes mellitus complication detail: with foot ulcer Qualified Code(s): E11.621 - Type 2 diabetes mellitus with foot ulcer; L97.509 - Non- pressure chronic ulcer of other part of unspecified foot with unspecified severity
[2019-06-23 12:00] LABS: C Reactive Protein 1.53 mg/dl (0-0.29); Thyroid Stimulating Hormone 1.01 uIu/ml (0.300-4.500)
--- NOTE | 2019-06-23 12:27 | Hospitalist Progress Note ---
Date of Service June 23, 2019 Assessment & Plan (1) Acute respiratory failure with hypoxia and hypercarbia: With alteration in mental status perhaps worse today than previous. With reported h/o needing BiPAP at [facility] ABG here shows significant hypercarbia. Started on BiPAP and had improveemnt Did smoke 20 pack years, quite 45 yrs ago, no known history of asthma or COPD. Is not obese, no suspected JEFF, but perhaps central sleep apnea? Also recently started on trazodone for insomnia--> could be worsening ventilation at night due to excessive sedation -dc trazodone -continue BiPAP -follow ABG in AM -consult Pulm for further recommendations -continue supplemental O2 to keep POx>90-92% -does have pleural effusions--> continue to hold po lasix for very little po intake today and watch I/Os, daily weights (2) Hypophonia: Thought to perhaps be secondary to dehydration and esophageal candidiasis. Stroke call on 06/20 after discussing with [facility] but this was assessed and ruled out as per previous hospitalist Continues on 06/23--> consult with Neurology with other signs or possible brainstem lesion --> cannot get repeat brain and C-spine MRIs due to being nonverbal (not safe to be in MRI scanner as per hospital policy)--> had report of intramedullary C2 lesion on MRI C-spine at [facility] from a few weeks ago and no mention of what this was from Presumed ischemic disease but could be demyelinating disease as well, perhaps Lyme? MS? -hold Eliquis and ASA and perform LP tomorrow with usual studies plus Lyme, MS panel -pt is NOT agreeable for transfer back to [facility] at this time, but is agreeable to LP -ordered Speech Therapy evaluation -continue treating oral Candidiasis (3) Esophageal candidiasis: Continue 200mg PO daily for 14 days. Nystatin to treat oropharyngeal. Was the cause of atypical chest pain earlier this admission (4) Chest pain: With hindsight suspect this was esophageal candidiasis as above. Cardiac enzymes unremarkable. (5) Lower extremity cellulitis: Left lower extremity cellulitis pretty much resolved. Blood cultures negative. No history of MRSA. CRP downtrending. -have since switched to Keflex-finish out 10 day course Despite known PAD pulses palpated in feet b/l, also noted wound care doppler assessment showed pulses - recommend outpatient vascular follow up. (6) Wound of lower extremity: Left lower extremity partial thickness wound suspected cause of cellulitis above. Appreciate wound care recommendations for dressings. Needs wound care clinic on discharge. (7) Acute on chronic diastolic CHF (congestive heart failure): Shortness of breath, acute on chronic diastolic CHF on admission. - diuresed easily with IV lasix and on trying to restart his home dose lasix he has become excessively dry. With very minimal po intake now -continue to hold lasix -continue good BP control With significant valvular disease as below (8) Urinary retention: Chronic pedraza catheter use due to neurogenic bladder (9) Anemia: Chronic stable. Normocytic. No further inpatient workup planned (10) Peripheral arterial disease: Pulses noted in feet b/l with cap refil 2-3 seconds. Doppler from wound care also positive for pulses. (11) Atrial fibrillation: Chronic. Rate controlled on metoprolol -> switched to carvedilol to help with BP management Anticoagulation with Eliquis-now on hold for LP (12) Diabetes mellitus: HbA1C 8.1. BSG ACHS. Restarted on metformin in anticipation of discharge and appears to have glucose levels well controlled on this. 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 Planning on following up with [facility] neuromuscular clinic on discharge. 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 coli--> sensitive to Keflex on for cellulitis of legs (20) Paraplegia: as above, secondary to old trauma, uses wheelchair (21) Aortic stenosis: mod-severe to ECHO here -follow with Cardio (22) Mitral stenosis: mod-severe here on ECHO -will discuss with Cardio (23) Mitral regurgitation: moderate, follow with Cardio (24) Elevated alkaline phosphatase level: mild elevation to the 160s on admission -follow Alk phos in AM (25) Elevated INR: elevated on admission, could be from Elqiuis vs liver dysfunction -follow INR in AM (26) DVT prophylaxis: holding Eliquis as above (27) Discharge planning issues: PT/OT -consults requiring max assist at this time Dispo-remain on med tele Subjective Pt still not able to speak today. He tries to make the words come out but just breath comes up. He is frustrated by this. Also continues to be lethargic, minimal po intake. He is quite weak. I discussed the case at length with Neurology today and on multidisciplinary rounds with Pharmacy, Case Management, and nursing staff. Because he is nonverbal, he cannot undergo MRIs again here as per Neuro request in case there is a problem with his pacer. When asked if he would be willing ot have me call back down to [facility] or any other tertiary care facility, he adamantly declines. When asked if he wants to stay at [facility] even if nothing more can be done for him here, he nods his head "yes." In discussion with his stepson on the phone, he reports this exact same presentation occurred last admission at [facility] and eventually he was put on BiPAP and then he got better. Son also reports pt was having a lot of visual hallucinations at that time too. ABG performed which did show hypercapnia and then started on BiPAP today I went back to check on him again later in the day and he was tolerating the BiPAP well, not SOB, and was a little more alert. Tele with Afib, paced rhythm, rates 80s Review of Systems Review of Systems: All systems reviewed & are unremarkable except as noted in HPI & below Physical Exam Constitutional: + ill appearing, cooperative and + lethargic; no acute distress Eyes: + anicteric sclerae, PERRL (except slightly less responsive on right) and + anterior chamber abnormality (right with leukocoria); + EOM not intact (could/would not look to the right) ENMT: Mouth: + oral mucosal abnormality (scant amount white patches oropharynx, dry tongue) Neck: trachea midline, no thyromegaly Respiratory: normal respiratory effort Auscultation: + diminished lung sounds (at bases bilat); no crackles and no wheezes Cardiovascular: RRR, no murmur, no edema Chest (Breasts): Chest: normal inspection of chest Gastrointestinal (Abdomen): normal bowel sounds, soft, nontender, no hepatosplenomegaly Inspection/Auscultation: + abdomen abnormal to inspection (large umbilical hernia, reducible, nontender) Musculoskeletal: Extremities: extremities normal to inspection; no cyanosis and no clubbing Skin: + lesion (multiple small scabs anterior tibiae) Neurologic: + focal motor deficit (weakness in legs bilat 1/5 left, 0/5 RLE,4/5 upper ext bilat) Speech / Cognition: + abnormal speech (hypophonia); no expressive aphasia and no receptive aphasia Motor/Sensory: no tremor Psychiatric: Orientation: oriented to person Eye Contact: + fair eye contact Genitourinary: Pedraza in place Results & Data Vital Signs (Past 12 Hours) Vital Signs Temp Pulse Resp BP Pulse Ox 06/23/19 10:54 36.6 C 83 16 131/79 92 06/23/19 07:00 36.6 C 81 18 160/90 H 96 06/23/19 04:15 36.5 C 79 18 143/80 H 94 Laboratory Results 06/23/19 06/23/19 06/23/19 Range/Units 22:02 20:27 18:29 WBC (4.8-10.8) K/uL RBC (4.7-6.1) M/uL Hgb (14.0-18.0) g/dL Hct (42-52) % MCV (80-100) fL MCH (25-34) pg MCHC (32-36) g/dL RDW Std Deviation (36.4-46.3) fL RDW Coeff of Da (11.5-14.5) % Plt Count (130-400) K/uL MPV (7.4-10.4) fL Immature Gran % (Auto) % Neut % (Auto) % Lymph % (Auto) % Howard % (Auto) % Eos % (Auto) % Baso % (Auto) % Immature Gran # (Auto) (0.00-0.02) K/uL Neut # (Auto) (1.4-6.5) K/uL Lymph # (Auto) (1.2-3.4) K/uL Howard # (Auto) (0.11-0.59) K/uL Eos # (Auto) (0-0.5) K/uL Baso # (Auto) (0-0.2) K/uL Hypochromasia ESR (0-14) mm/hr ABG pH 7.30 L 7.25 L (7.35-7.45) ABG pCO2 56 H 87 H (35-46) mmHg ABG pO2 110 H 111 H (80-95) mm/Hg ABG HCO3 27 H 38 H (19-24) mmol/L ABG O2 Saturation 97.7 H 97.1 H (90-95) % ABG Base Excess -0.1 8.1 H (-9-1.8) mEq/L Felice Test Pos Pos (Pos) Barometric Pressure 725.0 724.7 mm/Hg Oxygen Given 40% 40% Sodium (136-145) mmol/L Potassium (3.5-5.1) mmol/L Chloride (98-107) mmol/L Carbon Dioxide (21-32) mmol/L Anion Gap (3-11) BUN (7-18) mg/dl Creatinine (0.6-1.4) mg/dl Est Cr Clr Drug Dosing ml/min Est GFR ( Amer) Est GFR (Non-Af Amer) BUN/Creatinine Ratio (10-20) Glucose (70-99) mg/dl POC Glucose 175 H (70-99) Calcium (8.5-10.1) mg/dl C-Reactive Protein (0-0.29) mg/dl TSH (0.300-4.500) uIu/ml CARMELO Screen Lyme Disease IgG Ab (Negative) Lyme Disease IgM Ab (Negative) 06/23/19 06/23/19 06/23/19 Range/Units 16:43 13:40 11:39 WBC (4.8-10.8) K/uL RBC (4.7-6.1) M/uL Hgb (14.0-18.0) g/dL Hct (42-52) % MCV (80-100) fL MCH (25-34) pg MCHC (32-36) g/dL RDW Std Deviation (36.4-46.3) fL RDW Coeff of Da (11.5-14.5) % Plt Count (130-400) K/uL MPV (7.4-10.4) fL Immature Gran % (Auto) % Neut % (Auto) % Lymph % (Auto) % Howard % (Auto) % Eos % (Auto) % Baso % (Auto) % Immature Gran # (Auto) (0.00-0.02) K/uL Neut # (Auto) (1.4-6.5) K/uL Lymph # (Auto) (1.2-3.4) K/uL Howard # (Auto) (0.11-0.59) K/uL Eos # (Auto) (0-0.5) K/uL Baso # (Auto) (0-0.2) K/uL Hypochromasia ESR (0-14) mm/hr ABG pH 7.31 L (7.35-7.45) ABG pCO2 75 H (35-46) mmHg ABG pO2 71 L (80-95) mm/Hg ABG HCO3 37 H (19-24) mmol/L ABG O2 Saturation 93.7 (90-95) % ABG Base Excess 8.6 H (-9-1.8) mEq/L Felice Test Pos (Pos) Barometric Pressure 721.9 mm/Hg Oxygen Given 2L Sodium (136-145) mmol/L Potassium (3.5-5.1) mmol/L Chloride (98-107) mmol/L Carbon Dioxide (21-32) mmol/L Anion Gap (3-11) BUN (7-18) mg/dl Creatinine (0.6-1.4) mg/dl Est Cr Clr Drug Dosing ml/min Est GFR ( Amer) Est GFR (Non-Af Amer) BUN/Creatinine Ratio (10-20) Glucose (70-99) mg/dl POC Glucose 175 H 172 H (70-99) Calcium (8.5-10.1) mg/dl C-Reactive Protein (0-0.29) mg/dl TSH (0.300-4.500) uIu/ml CARMELO Screen Lyme Disease IgG Ab (Negative) Lyme Disease IgM Ab (Negative) 06/23/19 06/23/19 06/23/19 Range/Units 11:15 11:15 11:15 WBC (4.8-10.8) K/uL RBC (4.7-6.1) M/uL Hgb (14.0-18.0) g/dL Hct (42-52) % MCV (80-100) fL MCH (25-34) pg MCHC (32-36) g/dL RDW Std Deviation (36.4-46.3) fL RDW Coeff of Da (11.5-14.5) % Plt Count (130-400) K/uL MPV (7.4-10.4) fL Immature Gran % (Auto) % Neut % (Auto) % Lymph % (Auto) % Howard % (Auto) % Eos % (Auto) % Baso % (Auto) % Immature Gran # (Auto) (0.00-0.02) K/uL Neut # (Auto) (1.4-6.5) K/uL Lymph # (Auto) (1.2-3.4) K/uL Howard # (Auto) (0.11-0.59) K/uL Eos # (Auto) (0-0.5) K/uL Baso # (Auto) (0-0.2) K/uL Hypochromasia ESR (0-14) mm/hr ABG pH (7.35-7.45) ABG pCO2 (35-46) mmHg ABG pO2 (80-95) mm/Hg ABG HCO3 (19-24) mmol/L ABG O2 Saturation (90-95) % ABG Base Excess (-9-1.8) mEq/L Felice Test (Pos) Barometric Pressure mm/Hg Oxygen Given Sodium (136-145) mmol/L Potassium (3.5-5.1) mmol/L Chloride (98-107) mmol/L Carbon Dioxide (21-32) mmol/L Anion Gap (3-11) BUN (7-18) mg/dl Creatinine (0.6-1.4) mg/dl Est Cr Clr Drug Dosing ml/min Est GFR ( Amer) Est GFR (Non-Af Amer) BUN/Creatinine Ratio (10-20) Glucose (70-99) mg/dl POC Glucose (70-99) Calcium (8.5-10.1) mg/dl C-Reactive Protein 1.53 H (0-0.29) mg/dl TSH 1.010 (0.300-4.500) uIu/ml CARMELO Screen Pending Lyme Disease IgG Ab Negative (Negative) Lyme Disease IgM Ab Negative (Negative) 06/23/19 06/23/19 06/23/19 Range/Units 11:15 07:24 05:18 WBC 8.54 (4.8-10.8) K/uL RBC 4.49 L (4.7-6.1) M/uL Hgb 11.5 L (14.0-18.0) g/dL Hct 40.3 L (42-52) % MCV 89.8 (80-100) fL MCH 25.6 (25-34) pg MCHC 28.5 L (32-36) g/dL RDW Std Deviation 54.8 H (36.4-46.3) fL RDW Coeff of Da 16.7 H (11.5-14.5) % Plt Count 340 (130-400) K/uL MPV 10.9 H (7.4-10.4) fL Immature Gran % (Auto) 0.2 % Neut % (Auto) 76.1 % Lymph % (Auto) 12.3 % Howard % (Auto) 9.4 % Eos % (Auto) 1.8 % Baso % (Auto) 0.2 % Immature Gran # (Auto) 0.02 (0.00-0.02) K/uL Neut # (Auto) 6.50 (1.4-6.5) K/uL Lymph # (Auto) 1.05 L (1.2-3.4) K/uL Howard # (Auto) 0.80 H (0.11-0.59) K/uL Eos # (Auto) 0.15 (0-0.5) K/uL Baso # (Auto) 0.02 (0-0.2) K/uL Hypochromasia Present ESR 65 H (0-14) mm/hr ABG pH (7.35-7.45) ABG pCO2 (35-46) mmHg ABG pO2 (80-95) mm/Hg ABG HCO3 (19-24) mmol/L ABG O2 Saturation (90-95) % ABG Base Excess (-9-1.8) mEq/L Felice Test (Pos) Barometric Pressure mm/Hg Oxygen Given Sodium (136-145) mmol/L Potassium (3.5-5.1) mmol/L Chloride (98-107) mmol/L Carbon Dioxide (21-32) mmol/L Anion Gap (3-11) BUN (7-18) mg/dl Creatinine (0.6-1.4) mg/dl Est Cr Clr Drug Dosing ml/min Est GFR ( Amer) Est GFR (Non-Af Amer) BUN/Creatinine Ratio (10-20) Glucose (70-99) mg/dl POC Glucose 161 H (70-99) Calcium (8.5-10.1) mg/dl C-Reactive Protein (0-0.29) mg/dl TSH (0.300-4.500) uIu/ml CARMELO Screen Lyme Disease IgG Ab (Negative) Lyme Disease IgM Ab (Negative) 06/23/19 Range/Units 05:18 WBC (4.8-10.8) K/uL RBC (4.7-6.1) M/uL Hgb (14.0-18.0) g/dL Hct (42-52) % MCV (80-100) fL MCH (25-34) pg MCHC (32-36) g/dL RDW Std Deviation (36.4-46.3) fL RDW Coeff of Da (11.5-14.5) % Plt Count (130-400) K/uL MPV (7.4-10.4) fL Immature Gran % (Auto) % Neut % (Auto) % Lymph % (Auto) % Howard % (Auto) % Eos % (Auto) % Baso % (Auto) % Immature Gran # (Auto) (0.00-0.02) K/uL Neut # (Auto) (1.4-6.5) K/uL Lymph # (Auto) (1.2-3.4) K/uL Howard # (Auto) (0.11-0.59) K/uL Eos # (Auto) (0-0.5) K/uL Baso # (Auto) (0-0.2) K/uL Hypochromasia ESR (0-14) mm/hr ABG pH (7.35-7.45) ABG pCO2 (35-46) mmHg ABG pO2 (80-95) mm/Hg ABG HCO3 (19-24) mmol/L ABG O2 Saturation (90-95) % ABG Base Excess (-9-1.8) mEq/L Felice Test (Pos) Barometric Pressure mm/Hg Oxygen Given Sodium 148 H (136-145) mmol/L Potassium 4.2 (3.5-5.1) mmol/L Chloride 109 H (98-107) mmol/L Carbon Dioxide 36 H (21-32) mmol/L Anion Gap 3.0 (3-11) BUN 23 H (7-18) mg/dl Creatinine 0.84 (0.6-1.4) mg/dl Est Cr Clr Drug Dosing 82.2 ml/min Est GFR ( Amer) 100.0 Est GFR (Non-Af Amer) 86.3 BUN/Creatinine Ratio 27.3 H (10-20) Glucose 171 H (70-99) mg/dl POC Glucose (70-99) Calcium 9.1 (8.5-10.1) mg/dl C-Reactive Protein (0-0.29) mg/dl TSH (0.300-4.500) uIu/ml CARMELO Screen Lyme Disease IgG Ab (Negative) Lyme Disease IgM Ab (Negative) PG Care Time/CCT Total # of Minutes Spent Total Time Spent with Patient: Total time spent is greater than 50% in coordination of care (as documented) at patient's floor/unit and/or counseling patient: (1) Diabetes mellitus Diabetes mellitus complication detail: with foot ulcer Diabetes mellitus complication status: with skin complications Diabetes mellitus bed bug exterminator insulin use: without bed bug exterminator use Diabetes mellitus type: type 2 Qualified Code(s): E11.621 - Type 2 diabetes mellitus with foot ulcer; L97.509 - Non- pressure chronic ulcer of other part of unspecified foot with unspecified severity (2) Wound of lower extremity Encounter type: initial encounter Laterality: left Qualified Code(s): S81.802A - Unspecified open wound, left lower leg, initial encounter (3) Anemia Anemia type: unspecified type Qualified Code(s): D64.9 - Anemia, unspecified (4) Atrial fibrillation Atrial fibrillation type: chronic Qualified Code(s): I48.2 - Chronic atrial fibrillation (5) A-fib Atrial fibrillation type: unspecified Qualified Code(s): I48.91 - Unspecified atrial fibrillation (6) Lower extremity cellulitis Laterality: left Qualified Code(s): L03.116 - Cellulitis of left lower limb (7) Chest pain Chest pain type: unspecified Qualified Code(s): R07.9 - Chest pain, unspecified
[2019-06-23] MEDS: SERTRALINE HCL 100 MG TABLET PO SCH (12:30)
[2019-06-23 12:42] LABS: Lyme Ab IgG w/WB Rflx Negative (Negative); Lyme Ab IgM w/WB Rflx Negative (Negative)
[2019-06-23 13:52] LABS: Allen Test Pos (Pos); Base Excess ABG 8.6 mEq/L (-9-1.8); HCO3 ABG 37 mmol/L (19-24); Oxygen Saturation ABG 93.7 % (90-95); PCO2 ABG 75 mmHg (35-46); PO2 ABG 71 mm/Hg (80-95); pH ABG 7.31 (7.35-7.45)
[2019-06-23 18:44] LABS: Allen Test Pos (Pos); Base Excess ABG 8.1 mEq/L (-9-1.8); HCO3 ABG 38 mmol/L (19-24); Oxygen Saturation ABG 97.1 % (90-95); PCO2 ABG 87 mmHg (35-46); PO2 ABG 111 mm/Hg (80-95); pH ABG 7.25 (7.35-7.45)
[2019-06-23] MEDS: TRAZODONE HCL 50 MG TAB PO SCH (19:37)
[2019-06-23] MEDS: METHENAMINE HIPPURATE 1 GM TAB PO SCH (19:38)
[2019-06-23 22:12] LABS: Base Excess ABG -0.1 mEq/L (-9-1.8); HCO3 ABG 27 mmol/L (19-24); Oxygen Saturation ABG 97.7 % (90-95); PCO2 ABG 56 mmHg (35-46); PO2 ABG 110 mm/Hg (80-95)
[2019-06-23 22:13] LABS: Allen Test Pos (Pos)
[2019-06-24 07:31] LABS: INR 1.2 (0.9-1.1); Prothrombin Time 12.1 Seconds (9.0-12.0)
[2019-06-24 07:53] LABS: Albumin Level 2.2 gm/dl (3.4-5.0); BUN Creatinine Ratio 25.3 (10-20); Bilirubin Direct 0.1 mg/dl (0-0.2); Calcium 8.6 mg/dl (8.5-10.1); Creatinine Clr Calc Pharmacy 85.2 ml/min; Est GFR (African American) 101.5; Est GFR (Non-African American) 87.6; Magnesium 2.2 mg/dl (1.8-2.4); Potassium 4.5 mmol/L (3.5-5.1)
[2019-06-24 07:56] LABS: Bilirubin,Total 0.5 mg/dl (0.2-1); Phosphorus 3.1 mg/dl (2.5-4.9); Total Protein 6.3 gm/dl (6.4-8.2)
[2019-06-24 08:01] LABS: Basophils # (auto) 0.01 K/uL (0-0.2); Basophils % (auto) 0.1 %; Eosinophils # (auto) 0.12 K/uL (0-0.5); Eosinophils % (auto) 1.7 %; Hemoglobin 11.1 g/dL (14.0-18.0); Immature Granulocytes # (auto) 0.01 K/uL (0.00-0.02); Immature Granulocytes % (auto) 0.1 %; Lymphocytes # (auto) 0.78 K/uL (1.2-3.4); Lymphocytes % (auto) 11.3 %; Mean Corpuscular Hgb Conc 27.8 g/dL (32-36); Mean Corpuscular Volume 90.1 fL (80-100); Mean Platelet Volume 10.7 fL (7.4-10.4); Monocytes # (auto) 0.58 K/uL (0.11-0.59); Monocytes % (auto) 8.4 %; Neutrophils % (auto) 78.4 %; Platelet Count 294 K/uL (130-400); RDW Coefficient of Variation 16.4 % (11.5-14.5); RDW Standard Deviation 54.1 fL (36.4-46.3); Red Blood Count 4.44 M/uL (4.7-6.1)
[2019-06-24] MEDS: MULTIVITAMIN TAB PO SCH (08:09)
[2019-06-24] MEDS: NYSTATIN SUSP 500,000 U/5 ML UDC PO SCH ×4 (08:09→20:35)
[2019-06-24] MEDS: METFORMIN HCL ER 500 MG TABCR PO SCH ×2 (08:10→17:22)
[2019-06-24] MEDS: BACLOFEN 10 MG TAB PO SCH ×4 (08:10→20:39)
[2019-06-24] MEDS: lisinopriL 40 MG TAB PO SCH (08:10)
[2019-06-24] MEDS: POTASSIUM CHLORIDE 20 MEQ TABCR PO SCH (08:11)
[2019-06-24] MEDS: cephALEXin 500 MG CAP PO SCH ×4 (08:11→20:33)
[2019-06-24] MEDS: carvediloL 25 MG TAB PO SCH ×2 (08:12→20:33)
[2019-06-24] MEDS: FLUCONAZOLE 200 MG/5 ML UDP PO SCH (08:12)
[2019-06-24] MEDS ORDERED: D5W AND 1/2NSS 1,000 ML IV SCH (08:15)
[2019-06-24] MEDS: INSULIN ASPART 100 UNITS/ML 3 ML PEN SC SCH ×4 (08:31→20:35)
--- NOTE | 2019-06-24 09:02 | Neurology Progress Note ---
Date of Service June 24, 2019 Assessment & Plan (1) Hypophonia: (2) Spastic paralysis: (3) Carotid occlusion, left: (4) Weakness: (5) Demyelinating lesion: (6) Diabetes mellitus: (7) Atrial fibrillation with RVR: This is a complicated patient, with significant neurologic deficits and progression of symptoms over the last 4-6 weeks. Currently on examination the patient cannot speak words or makes sounds but seems able to understand me and follow commands. He is more alert today than yesterday. In addition, he has a very mild left facial weakness, improved ability to move his eyes to the right, palate and tongue weakness, as well as significant right upper extremity weakness compared to the left. He has an upgoing toe on the left. Patient also has a history of chronic low back injury with bilateral lower extremity weakness resulting in a severe paresis of the legs and has been wheelchair bound for at least a decade. Certainly, a brainstem lesion could explain his current symptoms. Also of note is the fact that he had an MRI of the cervical spine back in April at [facility] which showed a C2 intramedullary lesion. Nothing further was done about this lesion, as far as I can tell from the old records. A C2 lesion may be ischemic but is statistically more likely to be inflammatory. MRI of the brain done in April of 2019 showed extensive chronic white matter lesions. Although we assume these are ischemic in nature, I cannot exclude demy elinating disease. The patient has considerable cerebral vascular disease with multifocal areas of moderate to severe vessel stenosis and a complete left internal carotid artery occlusion distally. He has other stroke risk factors including diabetes and hypertension. He has been on 81 milligram aspirin. He has nothing to suggest a neuromuscular junction disease on examination and antibody titers were unremarkable at [facility] back in April. Recommendations: 1. Repeat MRI of the brain and cervical spine with and without contrast each. 2. Consider LP, after the MRIs, looking for central nervous system inflammatory disease. 3. Physical, occupational, and speech therapy consults. Increase activity as able. 4. Continue BiPAP as needed Overall, I spent a total of 40 minutes with this case including review of records, review of MRI films, direct evaluation the patient at bedside, discussing the case with Dr. Lao and doctors Luis and Jay, including differential diagnosis and treatment options. Subjective Overall, the patient is improve some neurologically since yesterday. He is more alert and is currently sitting up eating breakfast. Patient was given BiPAP last night and did well within. The patient still is not saying any words or sounds. He denies pain or headaches. Blood pressure is 155/85. CBC showed mild anemia as before. Chem profile showed elevated glucose of 240 and sodium of 149. Lyme antibody titers were negative. Sed rate was elevated at 65 in CARMELO is pending. Review of old records shows the patient has a significant generalized polyneuropathy noted on EMG and nerve conduction studies at [facility] back in April of 2019. Physical Exam Physical Exam: He is awake and alert (more so than yesterday. He follows one- step commands. He attempts to make sounds and words but cannot do either. Extraocular eye muscles are improved compared to yesterday any moods much more to the right than he did yesterday. He still has weakness with his palate and tongue. There is some asymmetry at the corner of the mouth on the left but he can move it today compared to yesterday. The right upper extremity is very paretic compared to the left which seems essentially normal. He can move his left lower extremity proximally some but he is not moving the right lower extremity. This is consistent with yesterday. Results & Data Vital Signs (Past 12 Hours) Vital Signs Temp Pulse Pulse Resp BP Pulse Ox 06/24/19 07:52 82 06/24/19 07:50 37.0 C 88 18 155/85 H 99 06/24/19 04:23 74 06/24/19 04:08 36.9 C 81 18 142/93 H 95 06/24/19 02:58 65 20 96 06/23/19 23:46 37.1 C 85 18 131/83 98 PG Care Time/CCT Total # of Minutes Spent Total Time Spent with Patient: Total time spent is greater than 50% in coordination of care (as documented) at patient's floor/unit and/or counseling patient: (1) Diabetes mellitus Diabetes mellitus type: type 2 Diabetes mellitus user interface developer insulin use: without user interface developer use Diabetes mellitus complication status: with skin c omplications Diabetes mellitus complication detail: with foot ulcer Qualified Code(s): E11.621 - Type 2 diabetes mellitus with foot ulcer; L97.509 - Non- pressure chronic ulcer of other part of unspecified foot with unspecified severity
[2019-06-24 09:24] LABS: Allen Test Pos (Pos); Base Excess ABG 9.5 mEq/L (-9-1.8); HCO3 ABG 37 mmol/L (19-24); Oxygen Saturation ABG 92.8 % (90-95); PCO2 ABG 65 mmHg (35-46); PO2 ABG 64 mm/Hg (80-95); pH ABG 7.37 (7.35-7.45)
[2019-06-24] MEDS ORDERED: GADOBUTROL 65ML VIAL IV PRN (12:14)
[2019-06-24 12:17] LABS: Anti Nuclear Antibody Screen NEGATIVE (NEGATIVE)
--- NOTE | 2019-06-24 12:38 | Magnetic Resonance Report ---
MR brain wo/w con CLINICAL HISTORY: r/o CVA mental status change COMPARISON STUDY: 05/08/2019 TECHNIQUE: Utilizing a 1.5 Domitila magnet and dedicated coil, multiplanar, multiecho imaging of the br ain was performed pre and postcontrast administration. IV administration of 8 mL of Gadavist contras t was uneventful. FINDINGS: Diffusion images now show several punctate acute/subacute infarcts of the left cerebral hem isphere. These primarily or left middle cerebral arterial distribution. Largest measures 1.3 cm immediately adjacent to the occipital horn left lateral ventricle. This appea juan suggests a potential watershed type infarct. Remainder the study is of limited diagnostic utility due to considerable patient motion. Occlusion of the left internal carotid artery and cervical and cavernous portions is again noted. This appears si milar. Postcontrast images are considered negative for enhancing lesion. The optic chiasm and pituitary appear unremarkable. Internal auditory canals are symmetric. IMPRESSION: 1. Interval development of acute multifocal punctate infarct left cerebral hemisphere. 2. These primarily appear to be a left middle cerebral arterial distribution and is suggestive of raji ershed type infarct. 3. Chronic occlusion left internal carotid artery as described. 4. No new or interval findings other than those noted. ACT 112: Negative or not required by law. The above report was generated using voice recognition software. It may contain grammatical, syntax or spelling errors. Electronically signed by: Jose Smith M.D. 06/24/2019 12:37 PM
--- NOTE | 2019-06-24 12:59 | Magnetic Resonance Report ---
MRI OF THE CERVICAL SPINE COMBO CLINICAL HISTORY: Reported history of unspecified spinal cord lesion. Clinical concern for demyelinat ing disease. COMPARISON STUDY: No priors. TECHNIQUE: MRI of the cervical spine is performed utilizing various T1 and T2-weighted sequences in t he axial and sagittal planes. Contrast-enhanced sequences are acquired following the IV administratio n of 8.5 cc of Gadavist. The examination is compromised by motion artifact. FINDINGS: Cervical spine: Vertebral body height and alignment are maintained throughout the cervical spine. The atlantodental articulation is maintained noting mild productive degenerative change. There is straig htening of the cervical lordosis. The spinous processes appear intact. No destructive bony process is identified. Intervertebral discs: Mild degenerative disc desiccation is noted throughout the cervical spine. The disc spaces are maintained. Spinal cord: The cervical spinal cord is normal in morphology. A 7 mm T2 hyperintense lesion is ident ified at the level of C2. No additional cervical cord lesions are identified. There is no associated abnormal postcontrast enhancement. Question mild thinning of the thoracic cord. C2-C3: Mild facet arthropathy is of no consequence. C3-C4: Uncovertebral and facet arthropathy cause mild left neural foraminal stenosis. C4-C5: Mild facet arthropathy is of no consequence. C5-C6: Unremarkable. C6-C7: Unremarkable. C7-T1: Unremarkable. Soft tissues: The prevertebral and paraspinous soft tissues are normal as imaged. Bilateral pleural e ffusions are noted. Brain parenchyma: The partially imaged brain parenchyma at the skull base is normal in appearance. IMPRESSION: 1. The cervical spinal cord is normal in morphology. 2. There is a 7 mm T2 hyperintense lesion in the cervical cord at the level of C2, with no associated abnormal postcontrast enhancement. This is nonspecific and could represent a remote infarct or possi casie a small focus of demyelination as clinically queried. 3. Question thinning of the thoracic cord. 4. Minimal spondylotic change as above. There is no central canal stenosis. 5. Pleural effusions. Dictated: 06/24/2019 12:27 PM Transcribed: 06/24/2019 12:56 PM Deysi [id number] [facility] Electronically signed by: Chandra Hammer M.D. 06/24/2019 12:57 PM
--- NOTE | 2019-06-24 13:00 | Pulmonary Consultation ---
Date of Consultation June 24, 2019 Assessment & Plan (1) Acute respiratory failure with hypoxia and hypercarbia: I suspect that much of his hypercapnic respiratory failure is likely related to his underlying neurological issues. He has a large left MCA infarct/watershed infarct. Recommend continuing noninvasive ventilation. He can be switched to a AVAPS mode with a target of 400 mL tidal volumes. I would recommend a backup rate of 12. You can initially try pressures of 12/5 and o btain a blood gas tomorrow morning to see how he is ventilating with the settings. Recommend aggressive physical therapy. He may also need a CoughAssist device in the future. Additionally, he does have large bilateral effusions which are likely secondary to his underlying hypoalbuminemic state and heart failure. He has numerous valvular issues. I do not think thoracentesis at this time would be of much benefit given his essentially bedbound state. Recommend cautious diuresis given his underlying valvular issues as you are doing. He will need increased nutrition and this will likely be an issue moving forward. Pulmonary will continue to follow peripherally. (2) CHF (congestive heart failure): Heart failure type: biventricular Qualified Code(s): I50.82 - Biventricular heart failure (3) Chronic left arterial ischemic stroke, MCA (middle cerebral artery): History of Present Illness Reason for Consultation: Hypercarbic respiratory failure Requesting Physician: Dr. Lao Attending Physician: Brenda Lao MD History of Present Illness This is a 74-year-old male with a past medical history of mitral valve regurgitation, mitral valve stenosis, aortic stenosis and diastolic heart failure with recent placement of a pacemaker who presented to the hospital due to altered mental status and respiratory failure. Patient is unable to give any history due to his medical condition and thus the history from the patient is not available. It does appear from chart review and discussion with the hospitalist that the patient had a lengthy admission at [place] recently where he was found to have a cervical spine lesion. He did undergo MRI of the brain T-spine and C-spine today to further evaluate for any lesions. Neurology is involved in the case and there is concern of a high brainstem lesion versus a demyelinating vasculopathy. He has had episodes of acute hypercapnic respiratory failure that appears to be chronic to some degree. He also has acute hypoxemic respiratory failure requiring supplemental oxygen. There is no family available at bedside. After discussion with the hospitalist, it does appear that the patient has some degree of chronic mobility issues and was apparently in a wheelchair for period of time due to spastic paralysis. Does appear that his baseline functioning is not great, but it does appear that he has had some neurological decompensation as of late that is yet to be identified. Allergies Allergy/AdvReac Type Severity Reaction Status Date / Time zolpidem [From Ambien] AdvReac hallucinati Verified 06/17/19 21:54 ons Home Medications Home Medications Medication Instructions Recorded Confirmed Type apixaban 5 mg tablet 5 mg PO BID 02/18/18 06/17/19 History lisinopril 40 mg tablet 40 mg PO QAM 02/18/18 06/17/19 History methenamine hippurate 1 gram tablet 1 gm PO QPM tab 02/18/18 06/17/19 History baclofen 10 mg tablet 10 mg PO QID tab 11/28/18 06/17/19 History metoprolol tartrate [Lopressor] 75 mg PO BID 01/20/19 06/17/19 History multivitamin 1 tab PO QAM 01/20/19 06/17/19 History potassium chloride [Klor-Con M20] 40 meq PO QAM 01/20/19 06/17/19 History sertraline [Zoloft] 100 mg PO DAILY@1300 01/20/19 06/17/19 History furosemide 20 mg tablet 20 mg PO PM tab 01/23/19 06/17/19 History aspirin 81 mg PO QAM 05/04/19 06/17/19 History ondansetron 4 mg PO DAILY PRN 05/04/19 06/17/19 History trazodone 50 mg tablet 50 mg PO DAILY #30 tab 06/13/19 06/17/19 Rx furosemide 20 mg tablet 40 mg PO BID tab 06/16/19 06/17/19 History Patient History Medical History A-fib (Acute) Acute diastolic heart failure Aortic stenosis Cellulitis (Chronic) Diabetes 1.5, managed as type 2 (Chronic) Glaucoma (Chronic) Hospital acquired PNA (Inactive) HTN (hypertension) (Chronic) Hydrocele (Chronic) Leg ulcer (Acute) Mitral regurgitation Mitral stenosis Scrotal mass (Chronic) Sepsis (Chronic) Small intestine obstruction (Chronic) Spastic paralysis (Chronic) Urinary retention (Chronic) UTI (urinary tract infection) (Chronic) Surgical History History of toe surgery (Chronic) S/P TURP (Chronic) Family History Other No significant family history Social History Preferred Language: [place] Communication Ability: Effective Deckhand Tuna Boat Required: No Beliefs That Will Affect Care: None Current Living Situation: Alone Current Living Situation Comment: 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 His nasal cannula is in place. His mouth is open. He does appear to acknowledge my presence in the room by looking at me and did appear startled. His exam is generally congruent. He does follow commands intermittently. Eyes: PERRL, conjunctivae normal, anicteric sclerae ENMT: external ear and nose normal, oropharynx normal Neck: normal visual inspection Respiratory: Crackles and diminished at the bases. Cardiovascular: Irregularly irregular. Systolic flow murmur noted. 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 He will not move his legs for me. He does seem to track me with his eyes to some degree. I did ask him his name and he did not respond. I am unclear of how much he is truly understanding what I am saying Lymphatic: no cervical or axillary lymphadenopathy Results & Data Vital Signs (Past 12 Hours) Vital Signs Temp Pulse Pulse Resp BP Pulse Ox 06/24/19 07:52 82 06/24/19 07:50 98.6 F 88 18 155/85 H 99 06/24/19 04:23 74 06/24/19 04:08 98.4 F 81 18 142/93 H 95 06/24/19 02:58 65 20 96 I did personally reviewed the patient's pertinent chest imaging and laboratory findings. PG Care Time/CCT Total # of Minutes Spent Total Time Spent with Patient: Total time spent is greater than 50% in coordination of care (as documented) at patient's floor/unit and/or counseling patient:
[2019-06-24] MEDS: ASPIRIN 81 MG ECTAB PO SCH (14:16)
[2019-06-24] MEDS: APIXABAN 5 MG TABLET PO SCH ×2 (14:16→20:34)
[2019-06-24] MEDS: SERTRALINE HCL 100 MG TABLET PO SCH (14:17)
--- NOTE | 2019-06-24 15:23 | Hospitalist Progress Note ---
Date of Service June 24, 2019 Assessment & Plan (1) Chronic left arterial ischemic stroke, MCA (middle cerebral artery): Now with left MCA territory acute CVA in setting of chronically occluded left ICA Also with lesion at C2 level also likely ischemic Watershed type infarct. COuld be from when BPs dropped to the 120s-130s systolic on 06/19 shortly before hypophonia and weakness began. -continue Eliquis, ASA (was on these and had CVA, but was not likely thrombotic or embolic CVA) keep BPs above 140 systolic-ok to continue current BP meds Not able to eat much, very weak in RUE, chronically weak in bilat LEs, trouble speaking, swallowing Palliative consult appreciated--> transitioning to INSULATION ESTIMATOR -can continue to eat for comfort, can continue pills if tolerates taking, transition off tele -limited ECHO ordered to look for LV thrombus (2) Acute respiratory failure with hypoxia and hypercarbia: With alteration in mental status perhaps worse today than previous. With reported h/o needing BiPAP at [facility] on previous admission recently ABG here shows significant hypercarbia. Started on BiPAP and had improvement ABG this AM shows normal pH with PaCO2 60-baseline Did smoke 20 pack years, quite 45 yrs ago, no known history of asthma or COPD. Is not obese, no suspected JEFF, but perhaps central sleep apnea now from known CVA Also recently started on trazodone for insomnia--> discontinued -continue BiPAP qhs and with naps if tolerates--> now transitioning to INSULATION ESTIMATOR -consult Pulm appreciated--> recommending Trilogy however now transitioning to INSULATION ESTIMATOR so will not order this -continue supplemental O2 to keep POx>90-92% -does have pleural effusions from diastolic CHF and valvular disease--> continue to hold po lasix for very little po intake and watch I/Os, daily weights (3) Hypophonia: Thought to perhaps be secondary to dehydration and esophageal candidiasis previously--> now known to be secondary to acute CVA left mCA territory. Stroke call on 06/20 after discussing with [place] but this was assessed and ruled out as per previous hospitalist MRI brain and C-spine obtained 06/24 show acute CVA left MCA territory, likely watershed infarct Not able to communicate consult with Neurology appreciated--> had report of intramedullary C2 lesion on MRI C-spine at [place] from a few weeks ago and no mention of what this was from Presumed ischemic disease but could be demyelinating disease as well, perhaps Lyme? MS? Lyme negative, myasthenia labs from [place] negative from last month Now no need for LP to look for MS, given acute CVA on imaging - Speech Therapy evaluation appreciated-nectar thick and pureed foods -continue treating oral Candidiasis (4) Esophageal candidiasis: Continue 200mg PO daily for 14 days if can tolerate. -dc Nystatin s/s Was the cause of atypical chest pain earlier this admission (5) Chest pain: With hindsight suspect this was esophageal candidiasis as above. Cardiac enzymes unremarkable. (6) Lower extremity cellulitis: Left lower extremity cellulitis pretty much resolved. Blood cultures negative. No history of MRSA. CRP downtrending. -have since switched to Keflex-finish out 10 day course Despite known PAD pulses palpated in feet b/l, also noted wound care doppler assessment showed pulses - recommend outpatient vascular follow up. (7) Wound of lower extremity: Left lower extremity partial thickness wound suspected cause of cellulitis above. Appreciate wound care recommendations for dressings. (8) Acute on chronic diastolic CHF (congestive heart failure): Shortness of breath, acute on chronic diastolic CHF on admission. - diuresed easily with IV lasix and on trying to restart his home dose lasix he has become excessively dry. With very minimal po intake now -continue to hold lasix With significant valvular disease as below (9) Urinary retention: Chronic pedraza catheter use due to neurogenic bladder (10) Anemia: Chronic stable. Normocytic. No further inpatient workup planned (11) Peripheral arterial disease: Pulses noted in feet b/l with cap refil 2-3 seconds. Doppler from wound care also positive for pulses. (12) Atrial fibrillation: Chronic. Rate controlled beta buzz-> switched to carvedilol to help with BP management earlier this admission Anticoagulation with Eliquis (13) Diabetes mellitus: HbA1C 8.1. BSG ACHS. Restarted on metformin in anticipation of discharge and appears to have glucose levels well controlled on this. (14) Spastic paralysis: Noted, from prior back injury. Planning on following up with [place] [facility] on discharge. -continue baclofen (15) Depression with anxiety: Continue sertraline (16) Demyelinating lesion: Suspected with lots of ischemic changes on previous MRI and C2 lesion but more likely ischemic now as per Neuro No need for LP now that new CVA found (17) Carotid occlusion, left: chronic -continue ASA -not on statin currently-not sure why (18) Essential (primary) hypertension: BPs controlled here, don't want to drop too low due ot watershed infarct and occluded left ICA -continue COreg,lisinopril 40mg daily -holding lasix (19) Chronic indwelling Pedraza catheter: continue methenamine and routine change out of Pedraza UA abnormal, Ur cx growing pansens E. coli--> sensitive to Keflex on for cellul itis of legs (20) Paraplegia: as above, secondary to old trauma, uses wheelchair (21) Aortic stenosis: mod-severe to ECHO here -follow with Cardio (22) Mitral stenosis: mod-severe here on ECHO (23) Mitral regurgitation: moderate, follow with Cardio (24) Elevated alkaline phosphatase level: mild elevation to the 160s on admission -no need for further workup now (25) Elevated INR: elevated on admission, could be from Elqiuis vs liver dysfunction (26) DVT prophylaxis: Eliquis (27) Discharge planning issues: PT/OT -consults requiring max assist at this time Dispo-transitioning to Comfort measures as per my discussion with Palliative Car e, patient not able to participate in discussion much. Discussed with hai OVALLES, onm phone and met with Palliative Care in person today who knows patient's wishes. Continue meds as tolerated, no artificial feeds or fluids, no lab draws, can tolerate BiPAP for now at nighttime. Transfer off tele. Will need Usp placement Subjective Pt a little more alert but still not able to talk. Still has difficulkty with any communication, but seems frustrated by this. Still weak in RUE. Denies pain., Answers questions with head nods and shakes. Disussed case with Neurology, Pulmonology, and Palliative Care as well as Cardiology. MRIs of brain and C-spine obtained today and showed strokes left MCA territory. Review of Systems Review of Systems: Unobtainable due to cognitive status Physical Exam Constitutional: + ill appearing, cooperative and + lethargic; no acute distress Eyes: + anicteric sclerae, PERRL (except slightly less responsive on right) and + anterior chamber abnormality (right with leukocoria); + EOM not intact (could/would not look to the right) ENMT: Mouth: + oral mucosal abnormality (scant amount white patches oropharynx, dry tongue) Neck: trachea midline, no thyromegaly Respiratory: normal respiratory effort Auscultation: + diminished lung sounds (at bases bilat); no crackles and no wheezes Cardiovascular: RRR, no murmur, no edema Chest (Breasts): Chest: normal inspection of chest Gastrointestinal (Abdomen): normal bowel sounds, soft, nontender, no hepatosplenomegaly Inspection/Auscultation: + abdomen abnormal to inspection (large umbilical hernia, reducible, nontender) Musculoskeletal: Extremities: extremities normal to inspection; no cyanosis and no clubbing Skin: + lesion (multiple small scabs anterior tibiae) Neurologic: + focal motor deficit (weakness in legs bilat 1/5 left, 0/5 RLE,would not move RUE for me,3/5 LUE) Speech / Cognition: + abnormal speech (hypophonia); no expressive aphasia and no receptive aphasia Motor/Sensory: no tremor Psychiatric: Eye Contact: + fair eye contact Results & Data Vital Signs (Past 12 Hours) Vital Signs Temp Pulse Pulse Resp BP Pulse Ox 06/24/19 15:08 80 06/24/19 07:52 82 06/24/19 07:50 37.0 C 88 18 155/85 H 99 06/24/19 04:23 74 06/24/19 04:08 36.9 C 81 18 142/93 H 95 Laboratory Results 06/24/19 06/24/19 06/24/19 Range/Units 20:17 16:23 12:05 WBC (4.8-10.8) K/uL RBC (4.7-6.1) M/uL Hgb (14.0-18.0) g/dL Hct (42-52) % MCV (80-100) fL MCH (25-34) pg MCHC (32-36) g/dL RDW Std Deviation (36.4-46.3) fL RDW Coeff of Da (11.5-14.5) % Plt Count (130-400) K/uL MPV (7.4-10.4) fL Immature Gran % (Auto) % Neut % (Auto) % Lymph % (Auto) % [place] % (Auto) % Eos % (Auto) % Baso % (Auto) % Immature Gran # (Auto) (0.00-0.02) K/uL Neut # (Auto) (1.4-6.5) K/uL Lymph # (Auto) (1.2-3.4) K/uL [place] # (Auto) (0.11-0.59) K/uL Eos # (Auto) (0-0.5) K/uL Baso # (Auto) (0-0.2) K/uL PT (9.0-12.0) Seconds INR (0.9-1.1) ABG pH (7.35-7.45) ABG pCO2 (35-46) mmHg ABG pO2 (80-95) mm/Hg ABG HCO3 (19-24) mmol/L ABG O2 Saturation (90-95) % ABG Base Excess (-9-1.8) mEq/L Felice Test (Pos) Barometric Pressure mm/Hg Oxygen Given Sodium (136-145) mmol/L Potassium (3.5-5.1) mmol/L Chloride (98-107) mmol/L Carbon Dioxide (21-32) mmol/L Anion Gap (3-11) BUN (7-18) mg/dl Creatinine (0.6-1.4) mg/dl Est Cr Clr Drug Dosing ml/min Est GFR ( Amer) Est GFR (Non-Af Amer) BUN/Creatinine Ratio (10-20) Glucose (70-99) mg/dl POC Glucose 172 H 188 H 218 H (70-99) Calcium (8.5-10.1) mg/dl Phosphorus (2.5-4.9) mg/dl Magnesium (1.8-2.4) mg/dl Total Bilirubin (0.2-1) mg/dl Direct Bilirubin (0-0.2) mg/dl AST (15-37) U/L ALT (12-78) U/L Alkaline Phosphatase (45-117) U/L Total Protein (6.4-8.2) gm/dl Albumin (3.4-5.0) gm/dl CARMELO Screen (NEGATIVE) 06/24/19 06/24/19 06/24/19 Range/Units 09:11 07:36 07:05 WBC (4.8-10.8) K/uL RBC (4.7-6.1) M/uL Hgb (14.0-18.0) g/dL Hct (42-52) % MCV (80-100) fL MCH (25-34) pg MCHC (32-36) g/dL RDW Std Deviation (36.4-46.3) fL RDW Coeff of Da (11.5-14.5) % Plt Count (130-400) K/uL MPV (7.4-10.4) fL Immature Gran % (Auto) % Neut % (Auto) % Lymph % (Auto) % [place] % (Auto) % Eos % (Auto) % Baso % (Auto) % Immature Gran # (Auto) (0.00-0.02) K/uL Neut # (Auto) (1.4-6.5) K/uL Lymph # (Auto) (1.2-3.4) K/uL [place] # (Auto) (0.11-0.59) K/uL Eos # (Auto) (0-0.5) K/uL Baso # (Auto) (0-0.2) K/uL PT 12.1 H (9.0-12.0) Seconds INR 1.2 H (0.9-1.1) ABG pH 7.37 (7.35-7.45) ABG pCO2 65 H (35-46) mmHg ABG pO2 64 L (80-95) mm/Hg ABG HCO3 37 H (19-24) mmol/L ABG O2 Saturation 92.8 (90-95) % ABG Base Excess 9.5 H (-9-1.8) mEq/L Felice Test Pos (Pos) Barometric Pressure 724.1 mm/Hg Oxygen Given 2 L Sodium (136-145) mmol/L Potassium (3.5-5.1) mmol/L Chloride (98-107) mmol/L Carbon Dioxide (21-32) mmol/L Anion Gap (3-11) BUN (7-18) mg/dl Creatinine (0.6-1.4) mg/dl Est Cr Clr Drug Dosing ml/min Est GFR ( Amer) Est GFR (Non-Af Amer) BUN/Creatinine Ratio (10-20) Glucose (70-99) mg/dl POC Glucose 240 H (70-99) Calcium (8.5-10.1) mg/dl Phosphorus (2.5-4.9) mg/dl Magnesium (1.8-2.4) mg/dl Total Bilirubin (0.2-1) mg/dl Direct Bilirubin (0-0.2) mg/dl AST (15-37) U/L ALT (12-78) U/L Alkaline Phosphatase (45-117) U/L Total Protein (6.4-8.2) gm/dl Albumin (3.4-5.0) gm/dl CARMELO Screen (NEGATIVE) 06/24/19 06/24/19 06/23/19 Range/Units 07:05 07:05 11:15 WBC 6.90 (4.8-10.8) K/uL RBC 4.44 L (4.7-6.1) M/uL Hgb 11.1 L (14.0-18.0) g/dL Hct 40.0 L (42-52) % MCV 90.1 (80-100) fL MCH 25.0 (25-34) pg MCHC 27.8 L (32-36) g/dL RDW Std Deviation 54.1 H (36.4-46.3) fL RDW Coeff of Da 16.4 H (11.5-14.5) % Plt Count 294 (130-400) K/uL MPV 10.7 H (7.4-10.4) fL Immature Gran % (Auto) 0.1 % Neut % (Auto) 78.4 % Lymph % (Auto) 11.3 % [place] % (Auto) 8.4 % Eos % (Auto) 1.7 % Baso % (Auto) 0.1 % Immature Gran # (Auto) 0.01 (0.00-0.02) K/uL Neut # (Auto) 5.40 (1.4-6.5) K/uL Lymph # (Auto) 0.78 L (1.2-3.4) K/uL [place] # (Auto) 0.58 (0.11-0.59) K/uL Eos # (Auto) 0.12 (0-0.5) K/uL Baso # (Auto) 0.01 (0-0.2) K/uL PT (9.0-12.0) Seconds INR (0.9-1.1) ABG pH (7.35-7.45) ABG pCO2 (35-46) mmHg ABG pO2 (80-95) mm/Hg ABG HCO3 (19-24) mmol/L ABG O2 Saturation (90-95) % ABG Base Excess (-9-1.8) mEq/L Felice Test (Pos) Barometric Pressure mm/Hg Oxygen Given Sodium 149 H (136-145) mmol/L Potassium 4.5 (3.5-5.1) mmol/L Chloride 112 H (98-107) mmol/L Carbon Dioxide 36 H (21-32) mmol/L Anion Gap 1.0 L (3-11) BUN 21 H (7-18) mg/dl Creatinine 0.81 (0.6-1.4) mg/dl Est Cr Clr Drug Dosing 85.2 ml/min Est GFR ( Amer) 101.5 Est GFR (Non-Af Amer) 87.6 BUN/Creatinine Ratio 25.3 H (10-20) Glucose 140 H (70-99) mg/dl POC Glucose (70-99) Calcium 8.6 (8.5-10.1) mg/dl Phosphorus 3.1 (2.5-4.9) mg/dl Magnesium 2.2 (1.8-2.4) mg/dl Total Bilirubin 0.5 (0.2-1) mg/dl Direct Bilirubin 0.1 (0-0.2) mg/dl AST 8 L (15-37) U/L ALT 11 L (12-78) U/L Alkaline Phosphatase 102 (45-117) U/L Total Protein 6.3 L (6.4-8.2) gm/dl Albumin 2.2 L (3.4-5.0) gm/dl CARMELO Screen NEGATIVE (NEGATIVE) PG Care Time/CCT Total # of Minutes Spent Total Time Spent with Patient: Total time spent is greater than 50% in coordination of care (as documented) at patient's floor/unit and/or counseling patient: (1) Diabetes mellitus Diabetes mellitus complication detail: with foot ulcer Diabetes mellitus complication status: with skin complications 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: without [place] [facility] use Diabetes mellitus type: type 2 Qualified Code(s): E11.621 - Type 2 diabetes mellitus with foot ulcer; L97.509 - Non- pressure chronic ulcer of other part of unspecified foot with unspecified severity (2) Wound of lower extremity Encounter type: initial encounter Laterality: left Qualified Code(s): S81.802A - Unspecified open wound, left lower leg, initial encounter (3) Anemia Anemia type: unspecified type Qualified Code(s): D64.9 - Anemia, unspecified (4) Atrial fibrillation Atrial fibrillation type: chronic Qualified Code(s): I48.2 - Chronic atrial fibrillation (5) Lower extremity cellulitis Laterality: left Qualified Code(s): L03.116 - Cellulitis of left lower limb (6) Chest pain Chest pain type: unspecified Qualified Code(s): R07.9 - Chest pain, unspecified
--- NOTE | 2019-06-24 16:18 | Palliative Care Consultation ---
Date of Consultation June 24, 2019 Assessment & Plan (1) Goals of care, counseling/discussion: -74 year old male patient with extensive past medical history including hypertension, peripheral arterial disease, cardiac pauses, chronic diastolic CHF, permanent atrial fibrillation, diabetes type 2, glaucoma, hydrocele, small bowel obstruction, spastic paralysis, UTI and urinary retention, depression, anxiety, umbilical hernia, chronic left ICA occlusion, and others, presented to the hospital six days ago with c/o increased lower extremity edema, SOB, and acute on chronic heart failure. There was question of cellulitis to lower extremities-- abx were started. He was diuresed as well. Patient became nonverbal and apparently some mental status changes so a stroke alert was called. Unfortunately patient was not a candidate for tPA, did not want to be transferred to tertiary care. Patient was nonverbal and could not answer MRI questionnaire, but the MRI was eventually obtained which shows "Interval development of acute multifocal punctate infarct left cerebral hemisphere"-- likely left MCA distribution with watershed effect. Patient is lethargic, bed bound at baseline, multiple comorbidities and complications. Prognosis is very poor. Patient's step son Felice Butt has patient's living will and is aware of his wishes. Palliative care consulted. -Met with patient in room 275-1. He is lethargic, falls asleep during conversation. Did say "no" to pain, but unable to participate in any conversation. -Myself, Felice, and Feliec's stepped out of patient's room to discuss. Felice is well aware of patient's many medical issues and is aware of the new strokes found on MRI. -Felice states that patient has always made his wishes quite clear, and has a living will. He would not want to continue with aggressive medical care at this point and would want to be made comfortable. -Will transition to comfort measures only. Stop lab work, discontinue IVF and medications unrelated to comfort. -We will reconvene on with patient's step son Felice to discuss discharge planning-- will likely need SNF with hospice care which Felice is agreeable to. -Continue Bipap at night for now. will likely not continue bipap outside of the hospital. (2) Chronic left arterial ischemic stroke, MCA (middle cerebral artery): (3) Acute respiratory failure with hypoxia and hypercarbia: (4) Carotid occlusion, left: History of Present Illness Attending Physician: Brenda Lao MD History of Present Illness This 74 year old male patient with extensive past medical history including hypertension, peripheral arterial disease, cardiac pauses, chronic diastolic CHF, permanent atrial fibrillation, diabetes type 2, glaucoma, hydrocele, small bowel obstruction, spastic paralysis, UTI and urinary retention, depression, anxiety, umbilical hernia, chronic left ICA occlusion, and others, presented to the hospital six days ago with c/o increased lower extremity edema, SOB, and acute on chronic heart failure. There was question of cellulitis to lower extremities-- abx were started. He was diuresed as well. Patient became nonverb al and apparently some mental status changes so a stroke alert was called. Unfortunately patient was not a candidate for tPA, did not want to be transferred to tertiary care. Patient was nonverbal and could not answer MRI questionnaire, but the MRI was eventually obtained which shows "Interval development of acute multifocal punctate infarct left cerebral hemisphere"-- likely left MCA distribution with watershed effect. Patient is lethargic, bed bound at baseline, multiple comorbidities and complications. Prognosis is very poor. Patient's step son Felice Butt has patient's living will and is aware of his wishes. Palliative care consulted. Thank you kindly for this consult. Palliative care team will follow as needed. Allergies Allergy/AdvReac Type Severity Reaction Status Date / Time zolpidem [From Ambien] AdvReac hallucinati Verified 06/17/19 21:54 ons Home Medications Home Medications Medication Instructions Recorded Confirmed Type apixaban 5 mg tablet 5 mg PO BID 02/18/18 06/17/19 History lisinopril 40 mg tablet 40 mg PO QAM 02/18/18 06/17/19 History methenamine hippurate 1 gram tablet 1 gm PO QPM tab 02/18/18 06/17/19 History baclofen 10 mg tablet 10 mg PO QID tab 11/28/18 06/17/19 History metoprolol tartrate [Lopressor] 75 mg PO BID 01/20/19 06/17/19 History multivitamin 1 tab PO QAM 01/20/19 06/17/19 History potassium chloride [Klor-Con M20] 40 meq PO QAM 01/20/19 06/17/19 History sertraline [Zoloft] 100 mg PO DAILY@1300 01/20/19 06/17/19 History furosemide 20 mg tablet 20 mg PO PM tab 01/23/19 06/17/19 History aspirin 81 mg PO QAM 05/04/19 06/17/19 History ondansetron 4 mg PO DAILY PRN 05/04/19 06/17/19 History trazodone 50 mg tablet 50 mg PO DAILY #30 tab 06/13/19 06/17/19 Rx furosemide 20 mg tablet 40 mg PO BID tab 06/16/19 06/17/19 History Patient History Medical History (Updated 06/24/19 @ 16:18 by ASHLI Chang) A-fib (Acute) Acute diastolic heart failure Aortic stenosis Cellulitis (Chronic) Chronic left arterial ischemic stroke, 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, managed as type 2 (Chronic) Glaucoma (Chronic) Goals of care, counseling/discussion Hospital acquired PNA (Inactive) HTN (hypertension) (Chronic) Hydrocele (Chronic) Leg ulcer (Acute) Mitral regurgitation Mitral stenosis Scrotal mass (Chronic) Sepsis (Chronic) Small intestine obstruction (Chronic) Spastic paralysis (Chronic) Urinary retention (Chronic) UTI (urinary tract infection) (Chronic) Surgical History History of toe surgery (Chronic) S/P TURP (Chronic) Family History Other No significant family history Social History Preferred Language: Kyrgyz Communication Ability: Effective Senior Industrial Engineer Required: No Beliefs That Will Affect Care: None Current Living Situation: Alone Current Living Situation Comment: 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, 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, 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 [facility] Other Information That Helps Us Care for You: No Feels Safe at Home: Yes Safety Concerns: Feels Safe At This Time Smoking Status: Former smoker Tobacco Type: cigarettes ; Cigarettes Per Day: about 45 years ago ; Smoking End Date: 45 years ago according to patient ; Second Hand Exposure: No ; Hx Alcohol Use: No Hx Substance Use: No Review of Systems Review of Systems: Unobtainable due to cognitive status Physical Exam Constitutional: + ill appearing and + lethargic; no acute distress Respiratory: normal respiratory effort; no labored breathing Auscultation: + diminished lung sounds Cardiovascular: RRR, no murmur, no edema Gastrointestinal (Abdomen): Inspection/Auscultation: normal bowel sounds Percussion/Palpation: abdomen soft; abdomen nontender Neurologic: awake (did wake to name, but very lethargic/drowsy. falls asleep frequently) Results & Data Vital Signs (Past 12 Hours) Vital Signs Temp Pulse Pulse Resp BP Pulse Ox 06/24/19 15:08 80 06/24/19 07:52 82 06/24/19 07:50 37.0 C 88 18 155/85 H 99 06/24/19 04:23 74 Time Spent Midlevel 50 minutes with >50% of the time spent at bedside with patient and family discussing condition and GOC.
[2019-06-24] MEDS: METHENAMINE HIPPURATE 1 GM TAB PO SCH (20:35)
[2019-06-25] MEDS: INSULIN ASPART 100 UNITS/ML 3 ML PEN SC SCH ×4 (08:46→22:22)
[2019-06-25] MEDS: carvediloL 25 MG TAB PO SCH ×2 (08:51→22:20)
[2019-06-25] MEDS: METFORMIN HCL ER 500 MG TABCR PO SCH ×2 (08:51→16:35)
[2019-06-25] MEDS: cephALEXin 500 MG CAP PO SCH ×4 (08:51→22:20)
[2019-06-25] MEDS: APIXABAN 5 MG TABLET PO SCH ×2 (08:51→22:20)
[2019-06-25] MEDS: MULTIVITAMIN TAB PO SCH (08:51)
[2019-06-25] MEDS: FLUCONAZOLE 200 MG/5 ML UDP PO SCH (08:51)
[2019-06-25] MEDS: BACLOFEN 10 MG TAB PO SCH ×4 (08:51→22:21)
[2019-06-25] MEDS: lisinopriL 40 MG TAB PO SCH (08:51)
[2019-06-25] MEDS: ASPIRIN 81 MG ECTAB PO SCH (08:51)
[2019-06-25] MEDS ORDERED: LORazepam 1 MG TAB SL PRN (11:57)
[2019-06-25] MEDS: MoRPHine SULFATE 5 MG/0.25 ML UDP PO PRN (12:42)
[2019-06-25] MEDS: SERTRALINE HCL 100 MG TABLET PO SCH (12:44)
--- NOTE | 2019-06-25 16:35 | Hospitalist Progress Note ---
Date of Service June 25, 2019 Assessment & Plan (1) Chronic left arterial ischemic stroke, MCA (middle cerebral artery): Now with left MCA territory acute CVA in setting of chronically occluded left ICA Also with lesion at C2 level also likely ischemic Watershed type infarct. COuld be from when BPs dropped to the 120s-130s systolic on 06/19 shortly before hypophonia and weakness began. 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 With reported h/o needing BiPAP at [place] on previous admission recently had hypercapnea requiring bipap - now appearing comfortable on NC O2. given that comfort is goal, hold on further investigations like ABG Did smoke 20 pack years, quite 45 yrs ago, no known history of asthma or COPD. 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 Stroke call on 06/20 after discussing with [facility] but this was assessed and ruled out as per previous hospitalist MRI brain and C-spine obtained 06/24 show acute CVA left MCA territory, likely watershed infarct Not able to communicate consult with Neurology appreciated--> had report of intramedullary C2 lesion on MRI C-spine at [facility] from a few weeks ago and no mention of what this was from Presumed ischemic disease but could be demyelinating disease as well, perhaps Lyme? MS? Lyme negative, myasthenia labs from [facility] negative from last month -continue treating oral Candidiasis given that this can be uncomfortable (4) Esophageal candidiasis: Continue 200mg PO daily for 14 days if can tolerate. -dc Nystatin s/s Was the cause of atypical chest pain earlier this admission (5) Chest pain: With hindsight suspect this was esophageal candidiasis as above. Cardiac enzymes unremarkable. (6) Lower extremity cellulitis: Left lower extremity cellulitis pretty much resolved. Blood cultures negative. No history of MRSA. CRP downtrending. -have since switched to Keflex-finish out 10 day course given that cellulitis can be uncomfortable (7) Wound of lower extremity: (8) Acute on chronic diastolic CHF (congestive heart failure): Shortness of breath, acute on chronic diastolic CHF on admission. -now breathing appearing comfortable (9) Urinary retention: Chronic pedraza catheter use due to neurogenic bladder (10) Anemia: (11) Peripheral arterial disease: (12) Atrial fibrillation: Chronic. Rate controlled beta buzz (13) Diabetes mellitus: HbA1C 8.1. BSG ACHS. Sugars have been on the high side of acceptable, and seems to be tolerating metformin well, will continue for now so as to prevent hyperglycemic dehydration, but certainly this can be discontinued whenever if it starts to be contradictory to comfort. (14) Spastic paralysis: Noted, from prior back injury. -continue baclofen (15) Depression with anxiety: Continue sertraline (16) Demyelinating lesion: Suspected with lots of ischemic changes on previous MRI and C2 lesion but more likely ischemic now as per Neuro No need for LP now that new CVA found (17) Carotid occlusion, left: chronic (18) Essential (primary) hypertension: Comfort goals (19) Chronic indwelling Pedraza catheter: continue methenamine and routine change out of Pedraza UA abnormal, Ur cx growing pansens E. coli--> sensitive to Keflex on for cellulitis of legs (20) Paraplegia: as above, secondary to old trauma, uses wheelchair (21) Aortic stenosis: mod-severe to ECHO here -follow with Cardio (22) Mitral stenosis: mod-severe here on ECHO (23) Mitral regurgitation: moderate (24) Elevated alkaline phosphatase level: mild elevation to the 160s on admission -no need for further workup now (25) Elevated INR: elevated on admission, could be from Eliquis vs liver dysfunction versus malnutrition (26) Discharge planning issues: Dispo-transitioning to Comfort measures as per my discussion with Palliative Care, patient not able to participate in discussion much. Discussed with hai OVALLES, onm phone and met with Palliative Care in person today who knows patient's wishes. Continue meds as tolerated, no artificial feeds or fluids, no lab draws, can tolerate BiPAP for now at nighttime. Family deciding on SNF options Subjective no HPI or ROS obtainable - nursing does note that he was appearing uncomfortable earlier, does loosely nod to "are you hurting anywhere" but not really repeatedly so Review of Systems Review of Systems: Unobtainable due to cognitive status Physical Exam Physical Exam: gen - awake, calm appearing, opens eyes and follows, loosely nods to questions but not reliably so. no distress at this time. heent nc at mmm. breathing unlabored no accessory muscles good effort. skin shows no rashes no pallor or icterus. Results & Data Vital Signs (Past 12 Hours) Vital Signs Temp Pulse Pulse Resp BP Pulse Ox 06/25/19 11:04 89 18 98 06/25/19 08:00 97.7 F 83 18 115/73 98 06/25/19 07:34 82 16 98 PG Care Time/CCT Total # of Minutes Spent Total Time Spent with Patient: Total time spent is greater than 50% in coordination of care (as documented) at patient's floor/unit and/or counseling patient: (1) Chest pain Chest pain type: unspecified Qualified Code(s): R07.9 - Chest pain, unspecified (2) Lower extremity cellulitis Laterality: left Qualified Code(s): L03.116 - Cellulitis of left lower limb (3) Wound of lower extremity Encounter type: initial encounter Laterality: left Qualified Code(s): S81.802A - Unspecified open wound, left lower leg, initial encounter (4) Anemia Anemia type: unspecified type Qualified Code(s): D64.9 - Anemia, unspecified (5) Atrial fibrillation Atrial fibrillation type: chronic Qualified Code(s): I48.2 - Chronic atrial fibrillation (6) Diabetes mellitus Diabetes mellitus type: type 2 Diabetes mellitus long term care phlebotomist insulin use: without [facility] use Diabetes mellitus complication status: with skin complications Diabetes mellitus complication detail: with foot ulcer Qualified Code(s): E11.621 - Type 2 diabetes mellitus with foot ulcer; L97.509 - Non- pressure chronic ulcer of other part of unspecified foot with unspecified severity
[2019-06-25] MEDS: METHENAMINE HIPPURATE 1 GM TAB PO SCH (22:23)
[2019-06-26] MEDS: MoRPHine SULFATE 5 MG/0.25 ML UDP PO PRN ×2 (05:00→08:53)
[2019-06-26] MEDS: FLUCONAZOLE 200 MG/5 ML UDP PO SCH (09:00)
[2019-06-26] MEDS: cephALEXin 500 MG CAP PO SCH (09:01)
[2019-06-26] MEDS: MULTIVITAMIN TAB PO SCH (09:01)
[2019-06-26] MEDS: METFORMIN HCL ER 500 MG TABCR PO SCH (09:01)
[2019-06-26] MEDS: APIXABAN 5 MG TABLET PO SCH (09:01)
[2019-06-26] MEDS: lisinopriL 40 MG TAB PO SCH (09:01)
[2019-06-26] MEDS: ASPIRIN 81 MG ECTAB PO SCH (09:01)
[2019-06-26] MEDS: BACLOFEN 10 MG TAB PO SCH (09:01)
[2019-06-26] MEDS: carvediloL 25 MG TAB PO SCH (09:01)
[2019-06-26] MEDS: INSULIN ASPART 100 UNITS/ML 3 ML PEN SC SCH (09:02)
--- NOTE | 2019-06-26 10:09 | Death Summary ---
Date of Service June 26, 2019 Pronouncement Note Date and Time of Date of : 06/26/19 Time of : 09:28 PCOD Preliminary cause of : Acute ischemic cerebrovascular accident (CVA) involving middle cerebral artery territory Contributing Factors (1) Chronic left arterial ischemic stroke, MCA (middle cerebral artery): Contributing factors: Pt presented initially with volume overload and lower extremity cellulitis in the setting of multiple comorbidities. He then developed a left MCA territory acute CVA in setting of chronically occluded left ICA Also with spinal cord lesion at C2 level also likely ischemic Watershed type infarct. COuld be from when BPs dropped to the 120s-130s systolic on 06/19 shortly before hypophonia and weakness began.The CVA occurred in the setting of therapeutic dosing of anticoagulation and aspirin use. 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 (2) Acute respiratory failure with hypoxia and hypercarbia: (3) Hypophonia: (4) Esophageal candidiasis: (5) Chest pain: (6) Lower extremity cellulitis: (7) Wound of lower extremity: (8) Acute on chronic diastolic CHF (congestive heart failure): (9) Urinary retention: (10) Anemia: (11) Peripheral arterial disease: (12) Atrial fibrillation: (13) Diabetes mellitus: (14) Spastic paralysis: (15) Depression with anxiety: (16) Demyelinating lesion: (17) Carotid occlusion, left: (18) Essential (primary) hypertension: (19) Chronic indwelling [place] catheter: (20) Paraplegia: (21) Aortic stenosis: (22) Mitral stenosis: (23) Mitral regurgitation: (24) Elevated alkaline phosphatase level: (25) Elevated INR: (26) Discharge planning issues: Additional Data Confirmation of : no pulse, no respirations, no heart sounds and pupils fixed and dilated Family: at bedside Attending/PCP notified?: Yes Attending physician: Brenda Lao MD Was code activated?: No Autopsy requested?: No
--- NOTE | 2019-07-03 07:40 | Coding Query ---
CODING QUERY To promote full compliance with coding requirements relating to patient care, provider participation is requested in all cases of carpenter repair uncertainty. Please assist us with the question(s) below: Coding Question(s): Patient admitted with CHF exacerbation and after admission developed an acute stroke. Documentation states " Left MCA territorial CVA in the setting of left internal carotid artery" . Seeking to clarify the relationship between the stroke and ICA stenosis. Please document, if known or suspected, the etiology of the acute Left MCA stroke with known underlying Internal carotic artery stenosis. Thanks for your help!! Robert Cabrera [facility] Physician's Response(s): Suspect left MCA territory watershed infarct secondary to known left ICA stenosis/occlusion Principal Diagnosis: "that condition established after study, to be chiefly responsible for occasioning the admission of the patient to the hospital for care." Co-Existing Principal Diagnosis: "when two or more diagnoses equally meet the criteria for principal diagnosis as determined by the circumstances of admission, diagnostic work up, and/or therapy provided, and the Alphabetic Index, Tabular List, or another coding guideline does not provide sequencing direction, any one of the diagnoses may be sequenced first." "When the physician has documented what appears to be a current diagnosis in the body of the record, but has not included the diagnosis in the final diagnostic statement, the physician should be asked whether the diagnosis should be added." (Source [facility]oding [facility] 2 QTR90. p3-4) EB
== END 2019-06-26 09:28 | disposition expired | DRG 291 ==
LOC: ED 20:32 → 2N 06-18 00:45 → SUATTDRO 06-18 00:45 → 2N 06-18 01:52 → 1E 06-19 11:55 → 2N 06-19 12:52 → 2S 06-20 23:15 → 2N 06-21 18:15 → 4W 06-25 18:53